=== PATIENT | female | born 1955 | race Caucasian/White ===

== ENCOUNTER → 2016-12-19 | Outpatient (CLI) | payer MEDICARE, OTHER ==
--- NOTE | 2016-12-20 13:25 | MM ---
Reason for exam: screening (asymptomatic). Last mammogram was performed 7 years and 6 months ago. History: Patient is postmenopausal, has history of ovarian cancer at age 44, and is nulliparous. Family history of premenopausal breast cancer in sister, breast cancer in aunt, and breast cancer in cousin. Physical Findings: A clinical breast exam by your physician is recommended on an annual basis and results should be correlated with mammographic findings. MG Screening Mammo w CAD Bilateral CC and MLO view(s) were taken. Prior study comparison: July 01, 2009, bilateral diagnostic digital mammog. June 19, 2008, bilateral digital screening mammogram. There are scattered fibroglandular densities. No significant changes when compared with prior studies. ASSESSMENT: Benign, BI-RAD 2 RECOMMENDATION: Routine screening mammogram of both breasts in 1 year.
== END | disposition home or self-care (01) ==
LOC: RADMAMWWP 09:13
PROVIDERS: ATTEND Family Medicine
DX: Z12.31 Encounter for screening mammogram for malignant neoplasm of breast (principal)

== ENCOUNTER → 2017-03-05 | Outpatient (CLI) | payer OTHER ==
[2017-03-05 14:44] VITALS: BP 136/63; PULSE 82; TEMP 98.3; BMI 32.8
--- NOTE | 2017-03-05 15:19 | P.HPBAR ---
Bariatric H&P - History & Physicial H&P Date: 03/05/17 History & Physicial: Visit/CC: follow up visit Patient initial contact: Initial weight: 80.739 kg Initial weight in pounds: 178.00 Height: 5 ft Initial BMI: 34.7 Last weight: Current weight: 76.294 kg Current weight in pounds: 168.20 Current BMI: 32.8 [place] body weight (based on NIH guidelines): 45.359 kg Excess body weight loss: 12.5% The patient is a 61 year-old F who presents for Bariatric Assessment. The patient presents today for sleeve follow-up. She is gaining approximate 15 pounds over the last 6 or 7 months. She states her blood sugars a been under control. She states her waking blood sugar is in the 3-400 range her hemoglobin A1c was 14. She states Dr. Joaquin and the [facility] in managing her blood sugars. Past Medical History Past Medical History: Diabetes Mellitus, Hyperlipidemia Additional Past Medical History / Comment(s): diverticultitis, patient currently has hammer toes. History of Any Multi-Drug Resistant Organisms: None Reported Past Surgical History: Bariatric Surgery, Cholecystectomy, Orthopedic Surgery Additional Past Surgical History / Comment(s): sleeve 07/08, colon resection for diverticulitis, Right knee rplaced 2007, currently suffers from hammer toes Past Anesthesia/Blood Transfusion Reactions: No Reported Reaction Past Psychological History: Depression, PTSD Additional Psychological History / Comment(s): patient takes zoloft daily Smoking Status: Never smoker Past Alcohol Use History: None Reported Past Drug Use History: None Reported - Past Family History Father Family Medical History: Cancer, COPD, Coronary Artery Disease (CAD) Additional Family Medical History / Comment(s): emphysema, prostate cancer and lung cancer. Mother Family Medical History: Coronary Artery Disease (CAD), Dementia, Diabetes Mellitus, Thyroid Disorder Additional Family Medical History / Comment(s): diverticulitis, Surgical - Exam Vital Signs Temp Pulse BP 98.3 F 82 136/63 03/05/17 14:38 03/05/17 14:38 03/05/17 14:38 - General well developed, well nourished - Eyes PERRL - ENT normal pinna - Neck no masses - Respiratory normal expansion - Cardiovascular Rhythm: regular - Abdomen Abdomen: soft, non tender Bariatric Assessment & Plan Plan: IDDM poorly controlled. Patient will see the diabetic dietitian and follow myself in 2 weeks. We have scheduled for blood work testing. Bariatric Checklist Checklist: Plan: Checklist: EGD: 1. Hiatal hernia: 2. H. Pylori: HgbA1c: Vitamin D: Smoking: Never smoker Primary care physician referral: alexandrea joaquin Psychiatry clearance: Cardiology clearance: Sleep study: Diet journal: VTE risk score: VTE risk level: Rehab needs at discharge:
[2017-03-05 16:09] LABS: CH 29.5; CHCM 32.1; HCT 40.9 % (34.0-46.0); HDW 2.44; HGB 13.2 gm/dL (11.4-16.0); MCH 29.7 pg (25.0-35.0); MCHC 32.2 g/dL (31.0-37.0); MCV 92.4 fL (80.0-100.0); Mean Platelet Volume 7.6; RBC 4.42 m/uL (3.80-5.40); RDW 13.3 % (11.5-15.5); WBC 9.4 k/uL (3.8-10.6)
[2017-03-05 16:17] LABS: ALT 30 U/L (9-52); AST 25 U/L (14-36); Alkaline Phosphatase 202 U/L (38-126); Anion Gap 9 mmol/L; Blood Urea Nitrogen 13 mg/dL (7-17); Calcium 9.4 mg/dL (8.4-10.2); Carbon Dioxide 22 mmol/L (22-30); Chloride 105 mmol/L (98-107); Glucose 359 mg/dL (74-99); Non-African American GFR(MDRD) >60 (>60 ml/min/1.73 sqM); Potassium 4.9 mmol/L (3.5-5.1); Sodium 136 mmol/L (137-145); Total Bilirubin 0.9 mg/dL (0.2-1.3); Total Protein 6.7 g/dL (6.3-8.2)
[2017-03-05 16:24] LABS: Prealbumin 20 mg/dL (18-36)
[2017-03-05 17:23] LABS: Vitamin B12 269 pg/mL (239-931)
[2017-03-05 22:09] LABS: Hemoglobin A1C 10.4 % (4.2-6.1)
== END | disposition home or self-care (01) ==
LOC: BARWHC3 13:55
PROVIDERS: ATTEND Surgery
DX: Z48.815 Encounter for surgical aftercare following surgery on the digestive system (principal); E10.9 Type 1 diabetes mellitus without complications; Z98.84 Bariatric surgery status
CPT/HCPCS: 80053; 82306; 82607; 82746; 83036; 84134; 84425; 84443; 85027; 99211

== ENCOUNTER → 2017-04-02 | Outpatient (CLI) | payer MEDICARE, OTHER ==
[2017-04-02 13:43] VITALS: BP 131/60; PULSE 54; RESP 16; TEMP 97.6; BMI 24.0
--- NOTE | 2017-04-02 16:25 | P.HPBAR ---
Bariatric H&P - History & Physicial H&P Date: 04/02/17 History & Physicial: Visit/CC: sleeve follow up Patient initial contact: Initial weight: 80.739 kg Initial weight in pounds: 178.00 Height: 5 ft 9.5 in Initial BMI: 25.9 Last weight: 168 Current weight: 74.871 kg Current weight in pounds: 165.00 Current BMI: 24.0 [place] body weight (based on NIH guidelines): 66.905 kg Excess body weight loss: 42.6% The patient is a 61 year-old F who presents for Bariatric Assessment. Patient presents today for sleeve follow-up. She has had some weight loss. She states her GERD symptoms are minimal. Her arthritis is improved. She is tolerating food. Past Medical History Past Medical History: Diabetes Mellitus, Hyperlipidemia Additional Past Medical History / Comment(s): diverticultitis, patient currently has hammer toes. History of Any Multi-Drug Resistant Organisms: None Reported Past Surgical History: Bariatric Surgery, Cholecystectomy, Orthopedic Surgery Additional Past Surgical History / Comment(s): sleeve 07/08, colon resection for diverticulitis, Right knee rplaced 2007, currently suffers from hammer toes Past Anesthesia/Blood Transfusion Reactions: No Reported Reaction Past Psychological History: Depression, PTSD Additional Psychological History / Comment(s): patient takes zoloft daily Smoking Status: Never smoker - Past Family History Father Family Medical History: Cancer, COPD, Coronary Artery Disease (CAD) Additional Family Medical History / Comment(s): emphysema, prostate cancer and lung cancer. Mother Family Medical History: Coronary Artery Disease (CAD), Dementia, Diabetes Mellitus, Thyroid Disorder Additional Family Medical History / Comment(s): diverticulitis, Surgical - Exam Vital Signs Temp Pulse Resp BP 97.6 F 54 L 16 131/60 04/02/17 13:34 04/02/17 13:34 04/02/17 13:34 04/02/17 13:34 - General well developed, no distress - Eyes PERRL - Respiratory normal expansion - Cardiovascular Rhythm: regular - Abdomen Abdomen: soft, non tender Bariatric Assessment & Plan Plan: Status post sleeve yesterday. Patient's GERD is improving. Her arthritis improving. She is doing fairly well from her sleeve gastrectomy. She'll follow -up in one month. Bariatric Checklist Checklist: Plan: Checklist: EGD: 1. Hiatal hernia: 2. H. Pylori: HgbA1c: Vitamin D: Smoking: Never smoker Primary care physician referral: alexandrea joaquin Psychiatry clearance: Cardiology clearance: Sleep study: Diet journal: VTE risk score: VTE risk level: Rehab needs at discharge:
== END | disposition home or self-care (01) ==
LOC: BARWHC3 13:17
PROVIDERS: ATTEND Surgery
DX: Z48.815 Encounter for surgical aftercare following surgery on the digestive system (principal); Z98.84 Bariatric surgery status; K21.9 Gastro-esophageal reflux disease without esophagitis; Z68.24 Body mass index [BMI] 24.0-24.9, adult
CPT/HCPCS: 99211

== ENCOUNTER 2017-04-06 10:41 | Day surgery (SDC) | payer MEDICARE ==
[2017-04-06] MEDS ORDERED: LACTATED RINGERS 1,000 ML IV SCH (10:57)
[2017-04-06 11:12] VITALS: RESP 16; TEMP 98.2
[2017-04-06 11:14] LABS: Glucose,Whole Blood 286 mg/dL (75-99)
[2017-04-06] MEDS ORDERED: INSULIN LISPRO (humaLOG) 300 UNIT/3 ML VIAL SQ ONE (11:19)
[2017-04-06] MEDS ORDERED: PROPOFOL 10 MG/ML 20 ML VIAL IV ONE (11:21)
[2017-04-06] MEDS ORDERED: LIDOCAINE 1% INJ 10MG/ML (20 ML MDV) ONE (11:21)
[2017-04-06] MEDS ORDERED: GLYCOPYRROLATE 0.2 MG/ML 2 ML VIAL ONE (11:21)
--- NOTE | 2017-04-06 11:37 | P.GSHP ---
History of Present Illness H&P Date: 04/06/17 Chief Complaint: Diarrhea, diverticulitis This is a 61-year-old female who presents today for colonoscopy. She has history of diverticulitis. Patient has a chronic complaints of diarrhea for last 3 months. Past Medical History Past Medical History: Diabetes Mellitus, Hyperlipidemia Additional Past Medical History / Comment(s): diverticultitis, patient currently has hammer toes. History of Any Multi-Drug Resistant Organisms: None Reported Past Surgical History: Bariatric Surgery, Cholecystectomy, Orthopedic Surgery Additional Past Surgical History / Comment(s): sleeve 07/08, colon resection for diverticulitis, Right knee rplaced 2007, currently suffers from hammer toes Past Anesthesia/Blood Transfusion Reactions: No Reported Reaction Past Psychological History: Depression, PTSD Additional Psychological History / Comment(s): patient takes zoloft daily Smoking Status: Never smoker - Past Family History Father Family Medical History: Cancer, COPD, Coronary Artery Disease (CAD) Additional Family Medical History / Comment(s): emphysema, prostate cancer and lung cancer. Mother Family Medical History: Coronary Artery Disease (CAD), Dementia, Diabetes Mellitus, Thyroid Disorder Additional Family Medical History / Comment(s): diverticulitis, Medications and Allergies Home Medications Medication Instructions Recorded Confirmed Type Omeprazole 20 mg PO DAILY 12/22/15 04/06/17 History Sertraline [Zoloft] 50 mg PO DAILY 12/22/15 04/06/17 History Insulin Glargine [Lantus] 25 unit SQ HS 05/01/16 04/06/17 History Insulin Regular, Human [NovoLIN R] 10 unit SQ AC-TID 05/01/16 04/06/17 History Simvastatin [Zocor] 5 mg PO HS 05/01/16 04/06/17 History metFORMIN HCL [Glucophage] 250 mg PO DAILY 05/01/16 04/06/17 History Atenolol [Tenormin] 50 mg PO DAILY 04/06/17 04/06/17 History Nitroglycerin 0.4 mg SL 04/06/17 History Allergies Allergy/AdvReac Type Severity Reaction Status Date / Time codeine Allergy Unknown Verified 04/06/17 10:54 erythromycin base Allergy Unknown Verified 04/06/17 10:54 lorazepam [From Ativan] Allergy Unknown Verified 04/06/17 10:54 Sulfa (Sulfonamide Allergy Unknown Verified 04/06/17 10:54 Antibiotics) Surgical - Exam Vital Signs Temp Pulse Resp BP Pulse Ox 98.2 F 77 16 134/72 98 04/06/17 11:00 04/06/17 11:00 04/06/17 11:00 04/06/17 11:00 04/06/17 11:00 - General well developed, no distress - Eyes PERRL - ENT normal pinna - Neck no masses - Respiratory normal expansion - Cardiovascular Rhythm: regular - Abdomen Mild left lower quadrant tenderness Abdomen: soft Results - Labs Abnormal Lab Results - Last 24 Hours (Table) 04/06/17 Range/Units 11:11 POC Glucose (mg/dL) 286 H (75-99) mg/dL Assessment and Plan Plan: Diarrhea, diverticulitis. We'll perform colonoscopy.
--- NOTE | 2017-04-06 11:48 | P.OP ---
Date of Procedure: 04/06/17 Preoperative Diagnosis: Diarrhea Diverticulitis Postoperative Diagnosis: Stents of diverticulosis of colon. Random biopsies of left colon and rectum performed Procedure(s) Performed: Colonoscopy Implants: Anesthesia: MAC Surgeon: Douglas Monahan Pathology: other (Random colon biopsy) Condition: stable Disposition: PACU Indications for Procedure: Operative Findings: Description of Procedure: The patient's placed on the endoscopy table lateral position. She received IV sedation. Digital rectal exam was performed which revealed no abnormalities. The flexible colonoscope was then placed patient anus passed throughout the entire colon. The patient a previous colorectal anastomosis. The ileocecal valve was visualized. The cecum was examined this appeared normal. In the right colon there were some diverticular changes. There is no evidence of any diverticulitis. Transverse colon was examined and there were diverticular changes and transverse colon the scope was then brought back into the left colon and there is extensive diverticular changes a biopsy of the proximal left colon and distal left colon were performed. A biopsies taken right before the anastomosis. The anastomosis visualized this appeared to be normal. There is no evidence of any inflammatory changes. The scope was brought back the rectum and this area appeared normal however due the patient's symptoms of diarrhea a biopsies performed. Scope was withdrawn for patient.
[2017-04-06 12:24] VITALS: BP 140/62; PULSE 75
== END 2017-04-06 12:37 | disposition home or self-care (01) ==
LOC: ORWHC2ENDO 10:41
PROVIDERS: ATTEND Surgery
DX: K57.30 Diverticulosis of large intestine without perforation or abscess without bleeding (principal); R19.7 Diarrhea, unspecified; Z87.19 Personal history of other diseases of the digestive system; Z90.49 Acquired absence of other specified parts of digestive tract; Z98.84 Bariatric surgery status; K21.9 Gastro-esophageal reflux disease without esophagitis; E11.9 Type 2 diabetes mellitus without complications; E78.5 Hyperlipidemia, unspecified; F32.9 Major depressive disorder, single episode, unspecified; F43.10 Post-traumatic stress disorder, unspecified; Z79.84 Long term (current) use of oral hypoglycemic drugs; Z79.4 Long term (current) use of insulin; Z79.899 Other long term (current) drug therapy; Z88.1 Allergy status to other antibiotic agents; Z88.5 Allergy status to narcotic agent; Z88.2 Allergy status to sulfonamides; Z88.8 Allergy status to other drugs, medicaments and biological substances
CPT/HCPCS: 88305; 45380; J2001; J2704

== ENCOUNTER 2017-04-20 17:09 | Inpatient (IN) | payer MEDICARE ==
[2017-04-20 18:41] LABS: Basophils # (A) 0.1 k/uL (0-0.2); Basophils % (A) 1 %; CH 29.9; CHCM 33.4; Eosinophils # (A) 0.4 k/uL (0-0.7); Eosinophils % (A) 4 %; HCT 41.5 % (34.0-46.0); HDW 2.49; HGB 14.1 gm/dL (11.4-16.0); Luc # (Auto) 0.24; Luc % (Auto) 2; Lymphocytes # (A) 3.2 k/uL (1.0-4.8); Lymphocytes % (A) 28 %; MCH 30.4 pg (25.0-35.0); MCHC 33.9 g/dL (31.0-37.0); MCV 89.8 fL (80.0-100.0); Mean Platelet Volume 8.9; Monocytes # (A) 0.7 k/uL (0-1.0); Monocytes % (A) 6 %; Neutrophils # (A) 6.8 k/uL (1.3-7.7); Neutrophils % (A) 59 %; RBC 4.63 m/uL (3.80-5.40); RDW 13.4 % (11.5-15.5); WBC 11.5 k/uL (3.8-10.6); WBC (Perox) 11.47
[2017-04-20 18:47] LABS: ALT 34 U/L (9-52); AST 31 U/L (14-36); Alkaline Phosphatase 180 U/L (38-126); Anion Gap 8 mmol/L; Blood Urea Nitrogen 15 mg/dL (7-17); Calcium 9.4 mg/dL (8.4-10.2); Carbon Dioxide 24 mmol/L (22-30); Chloride 108 mmol/L (98-107); Glucose 142 mg/dL (74-99); Magnesium 1.9 mg/dL (1.6-2.3); Non-African American GFR(MDRD) >60 (>60 ml/min/1.73 sqM); Sodium 140 mmol/L (137-145); Total Bilirubin 0.5 mg/dL (0.2-1.3); Total Protein 6.2 g/dL (6.3-8.2)
[2017-04-20 18:58] LABS: VBG PH 7.36 (7.31-7.41)
[2017-04-20 18:59] LABS: Creatine Kinase 44 U/L (30-135)
[2017-04-20 19:06] LABS: Ammonia <9 umol/L (<30)
[2017-04-20 19:07] LABS: Partial Thromboplastin Time 24.1 sec (22.0-30.0)
[2017-04-20 19:10] LABS: Appearance,Urine Clear (Clear); Bilirubin,Urine Negative (Negative); Glucose,Urine (UA) 1+ (Negative); Ketones,Urine Negative (Negative); Leukocyte Esterase,Urine Negative (Negative); Nitrite,Urine Negative (Negative); PH, Urine 5.5 (5.0-8.0); Protein,Urine Negative (Negative); Specific Gravity,Urine 1.002 (1.001-1.035); UA Billing (MACRO vs. MICRO) CHEM; Urobilinogen,Urine <2.0 mg/dL (<2.0)
[2017-04-20 19:13] LABS: Creatine Kinase MB <0.2 ng/mL (0.0-2.4); Troponin I <0.012 ng/mL (0.000-0.034)
--- NOTE | 2017-04-20 19:51 | CT ---
EXAMINATION TYPE: CT brain wo con DATE OF EXAM: 04/20/2017 COMPARISON: 11/27/2011 HISTORY: Unresponsive. CT DLP: 981.7 mGycm Automated exposure control for dose reduction was used. FINDINGS: Ventricles and sulci appear normal. There is no mass effect nor midline shift. There is no sign of in tracranial hemorrhage. The calvarium is intact. IMPRESSION: NORMAL UNENHANCED HEAD CT SCAN. NO CHANGE.
--- NOTE | 2017-04-20 20:05 | XR ---
EXAMINATION TYPE: XR chest 2V DATE OF EXAM: 04/20/2017 COMPARISON: 05/05/2013 HISTORY: Fatigue and chest pain TECHNIQUE: Frontal and lateral views of the chest are obtained. FINDINGS: Heart appears enlarged. There is no gross heart failure. There are chest leads. Costophren ic angles are clear. Bony thorax appears intact. IMPRESSION: Mild cardiomegaly. No acute lung disease. No change.
[2017-04-20] MEDS ORDERED: ASPIRIN 325 MG TAB PO STA (20:37)
[2017-04-20] MEDS ORDERED: NALOXONE 0.4 MG/ML 1 ML VIAL IV PRN (20:40)
[2017-04-20] MEDS ORDERED: ONDANSETRON 4 MG/2 ML VIAL IVP PRN (20:40)
--- NOTE | 2017-04-20 21:01 | ED ---
General Adult HPI - General Chief complaint: Recheck/Abnormal Lab/Rx Stated complaint: Fatigue, Poss Blood sugar issue Time Seen by Provider: 04/20/17 17:17 Source: patient, RN notes reviewed Mode of arrival: ambulatory Limitations: no limitations - History of Present Illness Initial comments: 62-year-old female with past medical history of hypertension, diabetes, and angina presents with fatigue. Patient is coming by her family member who states she has been sleepy all day. Patient does have history of chronic abdominal pain which she states is normal for her, no change today. Patient also states complaining of some substernal chest pain, this is typical of her angina. She is on nitroglycerin and isosorbide for this chest pain. Pain is currently resolved. She denies any radiating symptoms to the pain. No nausea vomiting or diarrhea. No fever. No cough. No palpitations. - Related Data Home Medications Medication Instructions Recorded Confirmed Insulin Glargine [Lantus] 30 unit SQ HS 05/01/16 04/20/17 Atenolol [Tenormin] 50 mg PO HS 04/06/17 04/20/17 Nitroglycerin 0.4 mg SUBLINGUAL Q5M PRN 04/06/17 04/20/17 Insulin Aspart [NovoLOG] 15 unit SQ TID-W/MEALS 04/20/17 04/20/17 Isosorbide Mononitrate ER [Imdur] 30 mg PO QAM 04/20/17 04/20/17 Sertraline HCl [Zoloft] 100 mg PO HS 04/20/17 04/20/17 Simvastatin [Zocor] 40 mg PO HS 04/20/17 04/20/17 metFORMIN HCL 1,000 mg PO HS 04/20/17 04/20/17 Allergies Allergy/AdvReac Type Severity Reaction Status Date / Time ampicillin Allergy Rash/Hives Verified 04/20/17 18:43 codeine Allergy Rash/Hives Verified 04/20/17 18:43 erythromycin base Allergy Rash/Hives Verified 04/20/17 18:43 lorazepam [From Ativan] Allergy Unknown Verified 04/20/17 17:15 Sulfa (Sulfonamide Allergy Rash/Hives Verified 04/20/17 18:43 Antibiotics) Review of Systems ROS Statement: Those systems with pertinent positive or pertinent negative responses have been documented in the HPI. ROS Other: All systems not noted in ROS Statement are negative. Past Medical History Past Medical History: Diabetes Mellitus, Hyperlipidemia Additional Past Medical History / Comment(s): diverticultitis, patient currently has hammer toes. History of Any Multi-Drug Resistant Organisms: None Reported Past Surgical History: Bariatric Surgery, Cholecystectomy, Orthopedic Surgery Additional Past Surgical History / Comment(s): sleeve 07/08, colon resection for diverticulitis, Right knee rplaced 2007, currently suffers from hammer toes Past Anesthesia/Blood Transfusion Reactions: No Reported Reaction Past Psychological History: Depression, PTSD Smoking Status: Never smoker - Past Family History Father Family Medical History: Cancer, COPD, Coronary Artery Disease (CAD) Additional Family Medical History / Comment(s): emphysema, prostate cancer and lung cancer. Mother Family Medical History: Coronary Artery Disease (CAD), Dementia, Diabetes Mellitus, Thyroid Disorder Additional Family Medical History / Comment(s): diverticulitis, General Exam Limitations: no limitations General appearance: alert (Patient is alert when aroused from sleep), in no apparent distress Head exam: Present: atraumatic, normocephalic Eye exam: Present: normal appearance, PERRL. Absent: scleral icterus ENT exam: Present: normal exam, mucous membranes moist Neck exam: Present: normal inspection, full ROM. Absent: meningismus Respiratory exam: Present: normal lung sounds bilaterally. Absent: respiratory distress Cardiovascular Exam: Present: normal rhythm, bradycardia GI/Abdominal exam: Present: soft. Absent: distended, tenderness Extremities exam: Present: normal inspection, normal capillary refill. Absent: pedal edema Back exam: Present: normal inspection Neurological exam: Present: alert, oriented X3, CN II-XII intact. Absent: motor sensory deficit Psychiatric exam: Present: normal affect, normal mood Skin exam: Present: warm, dry. 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 She is alert when aroused. EKG Findings - EKG Comments: EKG Findings:: EKG shows sinus bradycardia, normal AR interval 174, ventricular rate of 38, QRS duration 82, QTC is 370, there is no ST segment elevation, no T- wave abnormality, no signs of heart block. Medical Decision Making - Medical Decision Making 62-year-old female presents with chief complaint of fatigue and sleepiness. Patient is found to be bradycardic with a rate into the high 30s, blood pressure remained stable in the emergency department. Patient does admit to some intermittent chest pain, this has been persistent for months, she was diagnosed with angina and patient does not relate any change in her symptoms. Denies headache. Denies shortness of breath, denies fever, denies nausea vomiting and diarrhea. Patient does take atenolol, and was started on this approximately 2 months ago. EKG shows sinus bradycardia, no ST segment elevation or depression, no signs of heart block. Patient's blood pressure is stable despite bradycardia. Laboratory studies including CBC, CMP, cardiac enzymes, urinalysis, TSH, venous blood gas, and ammonia is unremarkable. Chest x-ray shows no acute findings. Head CT shows no acute finding. Patient remains bradycardic, blood pressure again is stable. Patient will be admitted for telemetry and cardiology evaluation. Patient's beta ana may need to be reduced, and will be held tonight. Diagnosis: Symptomatic bradycardia. - Lab Data Result diagrams: 04/20/17 18:21 04/20/17 18:21 Lab Results 04/20/17 04/20/17 04/20/17 Range/Units 18:21 18:21 18:21 WBC 11.5 H (3.8-10.6) k/uL RBC 4.63 (3.80-5.40) m/uL Hgb 14.1 (11.4-16.0) gm/dL Hct 41.5 (34.0-46.0) % MCV 89.8 (80.0-100.0) fL MCH 30.4 (25.0-35.0) pg MCHC 33.9 (31.0-37.0) g/dL RDW 13.4 (11.5-15.5) % Plt Count 213 (150-450) k/uL Neutrophils % 59 % Lymphocytes % 28 % Monocytes % 6 % Eosinophils % 4 % Basophils % 1 % Neutrophils # 6.8 (1.3-7.7) k/uL Lymphocytes # 3.2 (1.0-4.8) k/uL Monocytes # 0.7 (0-1.0) k/uL Eosinophils # 0.4 (0-0.7) k/uL Basophils # 0.1 (0-0.2) k/uL PT (9.0-12.0) sec INR (<1.2) APTT (22.0-30.0) sec VBG pH (7.31-7.41) VBG pCO2 (37-51) mmHg VBG HCO3 (24-28) mmol/L Sodium 140 (137-145) mmol/L Potassium 4.0 (3.5-5.1) mmol/L Chloride 108 H (98-107) mmol/L Carbon Dioxide 24 (22-30) mmol/L Anion Gap 8 mmol/L BUN 15 (7-17) mg/dL Creatinine 0.57 (0.52-1.04) mg/dL Est GFR (MDRD) Af Amer >60 (>60 ml/min/1.73 sqM) Est GFR (MDRD) Non-Af >60 (>60 ml/min/1.73 sqM) Glucose 142 H (74-99) mg/dL Plasma Lactic Acid [place] (0.7-2.0) mmol/L Calcium 9.4 (8.4-10.2) mg/dL Magnesium 1.9 (1.6-2.3) mg/dL Total Bilirubin 0.5 (0.2-1.3) mg/dL AST 31 (14-36) U/L ALT 34 (9-52) U/L Alkaline Phosphatase 180 H (38-126) U/L Ammonia (<30) umol/L Total Creatine Kinase 44 (30-135) U/L CK-MB (CK-2) <0.2 (0.0-2.4) ng/mL CK-MB (CK-2) Rel Index Troponin I <0.012 (0.000-0.034) ng/mL NT-Pro-B Natriuret Pep pg/mL Total Protein 6.2 L (6.3-8.2) g/dL Albumin 3.4 L (3.5-5.0) g/dL TSH 2.120 (0.465-4.680) mIU/L Urine Color Urine Appearance (Clear) Urine pH (5.0-8.0) Ur Specific [place] (1.001-1.035) Urine Protein (Negative) Urine Glucose (UA) (Negative) Urine Ketones (Negative) Urine Blood (Negative) Urine Nitrite (Negative) Urine Bilirubin (Negative) Urine Urobilinogen (<2.0) mg/dL Ur Leukocyte Esterase (Negative) 04/20/17 04/20/17 04/20/17 Range/Units 18:39 18:39 18:39 WBC (3.8-10.6) k/uL RBC (3.80-5.40) m/uL Hgb (11.4-16.0) gm/dL Hct (34.0-46.0) % MCV (80.0-100.0) fL MCH (25.0-35.0) pg MCHC (31.0-37.0) g/dL RDW (11.5-15.5) % Plt Count (150-450) k/uL Neutrophils % % Lymphocytes % % Monocytes % % Eosinophils % % Basophils % % Neutrophils # (1.3-7.7) k/uL Lymphocytes # (1.0-4.8) k/uL Monocytes # (0-1.0) k/uL Eosinophils # (0-0.7) k/uL Basophils # (0-0.2) k/uL PT 10.0 (9.0-12.0) sec INR 1.0 (<1.2) APTT 24.1 (22.0-30.0) sec VBG pH (7.31-7.41) VBG pCO2 (37-51) mmHg VBG HCO3 (24-28) mmol/L Sodium (137-145) mmol/L Potassium (3.5-5.1) mmol/L Chloride (98-107) mmol/L Carbon Dioxide (22-30) mmol/L Anion Gap mmol/L BUN (7-17) mg/dL Creatinine (0.52-1.04) mg/dL Est GFR (MDRD) Af Amer (>60 ml/min/1.73 sqM) Est GFR (MDRD) Non-Af (>60 ml/min/1.73 sqM) Glucose (74-99) mg/dL Plasma Lactic Acid [place] 1.1 (0.7-2.0) mmol/L Calcium (8.4-10.2) mg/dL Magnesium (1.6-2.3) mg/dL Total Bilirubin (0.2-1.3) mg/dL AST (14-36) U/L ALT (9-52) U/L Alkaline Phosphatase (38-126) U/L Ammonia <9 (<30) umol/L Total Creatine Kinase (30-135) U/L CK-MB (CK-2) (0.0-2.4) ng/mL CK-MB (CK-2) Rel Index Troponin I (0.000-0.034) ng/mL NT-Pro-B Natriuret Pep 245 pg/mL Total Protein (6.3-8.2) g/dL Albumin (3.5-5.0) g/dL TSH (0.465-4.680) mIU/L Urine Color Urine Appearance (Clear) Urine pH (5.0-8.0) Ur Specific [place] (1.001-1.035) Urine Protein (Negative) Urine Glucose (UA) (Negative) Urine Ketones (Negative) Urine Blood (Negative) Urine Nitrite (Negative) Urine Bilirubin (Negative) Urine Urobilinogen (<2.0) mg/dL Ur Leukocyte Esterase (Negative) 04/20/17 04/20/17 Range/Units 18:39 19:00 WBC (3.8-10.6) k/uL RBC (3.80-5.40) m/uL Hgb (11.4-16.0) gm/dL Hct (34.0-46.0) % MCV (80.0-100.0) fL MCH (25.0-35.0) pg MCHC (31.0-37.0) g/dL RDW (11.5-15.5) % Plt Count (150-450) k/uL Neutrophils % % Lymphocytes % % Monocytes % % Eosinophils % % Basophils % % Neutrophils # (1.3-7.7) k/uL Lymphocytes # (1.0-4.8) k/uL Monocytes # (0-1.0) k/uL Eosinophils # (0-0.7) k/uL Basophils # (0-0.2) k/uL PT (9.0-12.0) sec INR (<1.2) APTT (22.0-30.0) sec VBG pH 7.36 (7.31-7.41) VBG pCO2 50 (37-51) mmHg VBG HCO3 28 (24-28) mmol/L Sodium (137-145) mmol/L Potassium (3.5-5.1) mmol/L Chloride (98-107) mmol/L Carbon Dioxide (22-30) mmol/L Anion Gap mmol/L BUN (7-17) mg/dL Creatinine (0.52-1.04) mg/dL Est GFR (MDRD) Af Amer (>60 ml/min/1.73 sqM) Est GFR (MDRD) Non-Af (>60 ml/min/1.73 sqM) Glucose (74-99) mg/dL Plasma Lactic Acid [place] (0.7-2.0) mmol/L Calcium (8.4-10.2) mg/dL Magnesium (1.6-2.3) mg/dL Total Bilirubin (0.2-1.3) mg/dL AST (14-36) U/L ALT (9-52) U/L Alkaline Phosphatase (38-126) U/L Ammonia (<30) umol/L Total Creatine Kinase (30-135) U/L CK-MB (CK-2) (0.0-2.4) ng/mL CK-MB (CK-2) Rel Index Troponin I (0.000-0.034) ng/mL NT-Pro-B Natriuret Pep pg/mL Total Protein (6.3-8.2) g/dL Albumin (3.5-5.0) g/dL TSH (0.465-4.680) mIU/L Urine Color Light Yellow Urine Appearance Clear (Clear) Urine pH 5.5 (5.0-8.0) Ur Specific [place] 1.002 (1.001-1.035) Urine Protein Negative (Negative) Urine Glucose (UA) 1+ H (Negative) Urine Ketones Negative (Negative) Urine Blood Negative (Negative) Urine Nitrite Negative (Negative) Urine Bilirubin Negative (Negative) Urine Urobilinogen <2.0 (<2.0) mg/dL Ur Leukocyte Esterase Negative (Negative) Critical Care Time Critical Care Time: Yes Total Critical Care Time: 35 Disposition Clinical Impression: Symptomatic sinus bradycardia Disposition: ADMITTED IP TO THIS [facility] Condition: Serious Referrals: Kevyn Luciano DO [Primary Care Provider] - 1-2 days Decision to Admit Reason: Admit from EC Decision Date: 04/20/17 Decision Time: 20:00
[2017-04-20 23:14] LABS: Glucose,Whole Blood 105 mg/dL (75-99)
[2017-04-21 01:49] LABS: Creatine Kinase 32 U/L (30-135)
[2017-04-21 02:03] LABS: Creatine Kinase MB <0.2 ng/mL (0.0-2.4); Troponin I <0.012 ng/mL (0.000-0.034)
[2017-04-21 04:42] VITALS: BMI 31.6
[2017-04-21 06:17] LABS: Glucose,Whole Blood 152 mg/dL (75-99)
[2017-04-21 07:10] LABS: Creatine Kinase 30 U/L (30-135)
[2017-04-21] MEDS: INSULIN LISPRO (humaLOG) 300 UNIT/3 ML VIAL SQ SCH ×3 (07:15→17:30)
[2017-04-21 07:23] LABS: Creatine Kinase MB <0.2 ng/mL (0.0-2.4); Troponin I <0.012 ng/mL (0.000-0.034)
--- NOTE | 2017-04-21 09:54 | ECHOF ---
Referral Reason:symptomatic bradycardia MEASUREMENTS -------- HEIGHT: 152.4 cm WEIGHT: 75.3 kg BP: 122/71 IVSd: 1.1 cm (0.6 - 1.1) LVIDd: 4.4 cm (3.9 - 5.3) LVPWd: 1.2 cm (0.6 - 1.1) LVIDs: 3.4 cm RVIDd: 3.2 cm (< 3.3) Ao Diam: 3.0 cm (2.0 - 3.7) LA Diam: 3.7 cm (2.7 - 3.8) AV Cusp: 1.9 cm (1.5 - 2.6) EPSS: 1.0 cm MV E Kj: 1.21 m/s MV DecT: 277 ms MV A Kj: 1.05 m/s MV E/A Ratio: 1.16 AV maxP.14 mmHg AV meanP.65 mmHg RAP: 5.00 mmHg RVSP: 24.78 mmHg MV EF SLOPE: 53.73 mm/s (70 - 150) MV EXCURSION: 11.80 mm (> 18.000) FINDINGS -------- Resting bradycardia (HR<60bpm). This was a technically good study. There is borderline concentric left ventricular hypertrophy. Overall left ventricular systolic function is normal with, an EF between 55 - 60 %. The right ventricle is normal in size and function. The left atrium is normal in size. The right atrium is normal in size. Aortic valve is trileaflet and is mildly thickened. There is mild aortic valve sclerosis. Peak/mean gradient across the Aortic Valve is 15.14mmHg / 6.65mmHg. The mitral valve leaflets are mildly thickened. There is trace mitral regurgitation. Trace tricuspid regurgitation present. The right ventricular systolic pressure, as measured by Doppler, is 24.78mmHg. Pulmonic valve appears structurally normal. The aortic root, ascending aorta and aortic arch are normal. Normal inferior vena cava with normal inspiratory collapse consistent with estimated right atrial pressure of 5 mmHg. The pericardium is normal. CONCLUSIONS -------- 1. Resting bradycardia (HR<60bpm). 2. Peak/mean gradient across the Aortic Valve is 15.14mmHg / 6.65mmHg. 3. The mitral valve leaflets are mildly thickened. 4. There is trace mitral regurgitation. 5. Trace tricuspid regurgitation present. 6. The right ventricular systolic pressure, as measured by Doppler, is 24.78mmHg. 7. Pulmonic valve appears structurally normal. 8. The aortic root, ascending aorta and aortic arch are normal. 9. Normal inferior vena cava with normal inspiratory collapse consistent with estimated right atrial pressure of 5 mmHg. 10. The pericardium is normal. 11. This was a technically good study. 12. There is borderline concentric left ventricular hypertrophy. 13. Overall left ventricular systolic function is normal with, an EF between 55 - 60 %. 14. The right ventricle is normal in size and function. 15. The left atrium is normal in size. 16. The right atrium is normal in size. 17. Aortic valve is trileaflet and is mildly thickened. 18. There is mild aortic valve sclerosis. CONSTRUCTION PIT WORKER: Cecy Howard RDCS
--- NOTE | 2017-04-21 11:43 | P.CRDCN ---
History of Present Illness Consult date: 04/21/17 Reason for Consult (text): Symptomatic bradycardia Chief complaint: Excessive fatigue and tiredness History of present illness: This is a pleasant 62-year-old female with a history of hypertension and diabetes who was seen in the office by Dr. ARRIAGA) he has a new patient in October with complaints of nonexertional chest discomfort. At that time she was scheduled for a stress test and echocardiogram however these were not done. His initial emergency department with complaints of excessive fatigue and tiredness, inability to wake up. And on admission was negative. Patient was found to be in sinus bradycardia with a heart rate in the 30s. Patient had been started on atenolol and her October office visit with Dr. Watson. Laboratory values showed a normal TSH and troponins less than 0.0123. Patient did have complaints of left-sided chest discomfort that was not related to any type of activity. Since admission, her heart rate has been dropping into the 30s. Atenolol has been discontinued. She's had no further complaints of chest discomfort. Past Medical History Past Medical History: Chest Pain / Angina, Diabetes Mellitus, Hyperlipidemia Additional Past Medical History / Comment(s): diverticultitis, patient currently has hammer toes. History of Any Multi-Drug Resistant Organisms: None Reported Past Surgical History: Bariatric Surgery, Cholecystectomy, Orthopedic Surgery Additional Past Surgical History / Comment(s): sleeve 07/08, colon resection for diverticulitis, Right knee rplaced 2007, currently suffers from hammer toes Past Anesthesia/Blood Transfusion Reactions: No Reported Reaction Past Psychological History: Depression, PTSD Additional Psychological History / Comment(s): patient takes zoloft daily Smoking Status: Never smoker Past Alcohol Use History: None Reported Past Drug Use History: None Reported - Past Family History Father Family Medical History: Cancer, COPD, Coronary Artery Disease (CAD) Additional Family Medical History / Comment(s): emphysema, prostate cancer and lung cancer. Mother Family Medical History: Coronary Artery Disease (CAD), Dementia, Diabetes Mellitus, Thyroid Disorder Additional Family Medical History / Comment(s): diverticulitis, Medications and Allergies Home Medications Medication Instructions Recorded Confirmed Type Insulin Glargine [Lantus] 30 unit SQ HS 05/01/16 04/20/17 History Atenolol [Tenormin] 50 mg PO HS 04/06/17 04/20/17 History Nitroglycerin 0.4 mg SUBLINGUAL Q5M PRN 04/06/17 04/20/17 History Insulin Aspart [NovoLOG] 15 unit SQ TID-W/MEALS 04/20/17 04/20/17 History Isosorbide Mononitrate ER [Imdur] 30 mg PO QAM 04/20/17 04/20/17 History Sertraline HCl [Zoloft] 100 mg PO HS 04/20/17 04/20/17 History Simvastatin [Zocor] 40 mg PO HS 04/20/17 04/20/17 History metFORMIN HCL 1,000 mg PO HS 04/20/17 04/20/17 History Allergies Allergy/AdvReac Type Severity Reaction Status Date / Time ampicillin Allergy Rash/Hives Verified 04/20/17 18:43 codeine Allergy Rash/Hives Verified 04/20/17 18:43 erythromycin base Allergy Rash/Hives Verified 04/20/17 18:43 lorazepam [From Ativan] Allergy Unknown Verified 04/20/17 17:15 Sulfa (Sulfonamide Allergy Rash/Hives Verified 04/20/17 18:43 Antibiotics) Physical Exam Vitals: Vital Signs Temp Pulse Pulse Resp BP BP Pulse Ox 04/21/17 09:00 97.6 F 48 L 18 104/52 97 04/21/17 04:00 97.0 F L 51 L 18 122/71 98 04/21/17 00:00 41 L 04/20/17 22:00 98.0 F 39 L 16 146/68 97 04/20/17 21:19 97.6 F 41 L 18 141/82 98 04/20/17 21:00 97.9 F 51 L 16 128/60 98 04/20/17 20:39 97.8 F 47 L 16 160/65 98 04/20/17 19:00 38 L 14 156/70 97 04/20/17 18:55 42 L 04/20/17 18:50 40 L 14 146/66 96 04/20/17 17:11 99.2 F 41 L 18 142/64 97 Intake and Output 04/20/17 04/21/17 04/21/17 22:59 06:59 14:59 Other: Voiding Method Toilet Toilet # Voids 0 1 Weight 73.4 kg 75.3 kg PHYSICAL EXAMINATION: HEENT: Head is atraumatic, normocephalic. Pupils equal, round. Neck is supple. There is no elevated jugular venous pressure. HEART EXAMINATION: Heart sounds regular, S1 and S2 normal. No murmur or gallop heard. CHEST EXAMINATION: Lungs are clear to auscultation and precussion. No chest wall tenderness is noted on palpation or with deep breathing. ABDOMEN: Soft, obese, nontender. Bowel sounds are heard. No organomegaly noted. EXTREMITIES: 2+ peripheral pulses with no evidence of peripheral edema and no calf tenderness noted. NEUROLOGIC patient is sleeping, easily arousable but somewhat drowsy and oriented x3 with mild confusion related to previous events. . Results 04/20/17 18:21 04/20/17 18:21 Cardiac Enzymes 04/20/17 04/20/17 04/21/17 Range/Units 18:21 18:21 00:47 AST 31 (14-36) U/L CK-MB (CK-2) <0.2 <0.2 (0.0-2.4) ng/mL Troponin I <0.012 <0.012 (0.000-0.034) ng/mL 04/21/17 Range/Units 06:02 AST (14-36) U/L CK-MB (CK-2) <0.2 (0.0-2.4) ng/mL Troponin I <0.012 (0.000-0.034) ng/mL Coagulation 04/20/17 Range/Units 18:39 PT 10.0 (9.0-12.0) sec APTT 24.1 (22.0-30.0) sec CBC 04/20/17 Range/Units 18:21 WBC 11.5 H (3.8-10.6) k/uL RBC 4.63 (3.80-5.40) m/uL Hgb 14.1 (11.4-16.0) gm/dL Hct 41.5 (34.0-46.0) % Plt Count 213 (150-450) k/uL Comprehensive Metabolic Panel 04/20/17 Range/Units 18:21 Sodium 140 (137-145) mmol/L Potassium 4.0 (3.5-5.1) mmol/L Chloride 108 H (98-107) mmol/L Carbon Dioxide 24 (22-30) mmol/L BUN 15 (7-17) mg/dL Creatinine 0.57 (0.52-1.04) mg/dL Glucose 142 H (74-99) mg/dL Calcium 9.4 (8.4-10.2) mg/dL AST 31 (14-36) U/L ALT 34 (9-52) U/L Alkaline Phosphatase 180 H (38-126) U/L Total Protein 6.2 L (6.3-8.2) g/dL Albumin 3.4 L (3.5-5.0) g/dL Current Medications Generic Name Dose Route Start Last Admin Trade Name Freq PRN Reason Stop Dose Admin Atorvastatin Calcium 20 mg 04/21/17 21:00 Lipitor PO HS KERRIE Insulin Glargine 30 unit 04/21/17 21:00 Lantus SQ HS KERRIE Insulin Human Lispro 15 unit 04/21/17 07:30 04/21/17 07:15 Humalog SQ 5 unit TID-W/MEALS KERRIE Administration Isosorbide Mononitrate 30 mg 04/21/17 09:00 Imdur PO QAM KERRIE Naloxone HCl 0.2 mg 04/20/17 20:40 Narcan IV Q2M PRN Opioid Reversal Ondansetron HCl 4 mg 04/20/17 20:40 Zofran IVP Q8HR PRN Nausea And Vomiting Intake and Output 04/20/17 04/21/17 04/21/17 22:59 06:59 14:59 Other: Voiding Method Toilet Toilet # Voids 0 1 Weight 73.4 kg 75.3 kg 04/20/17 18:21 04/20/17 18:21 EKG Interpretations (text) Sinus bradycardia Assessment and Plan Plan: Assessment and plan #1 symptomatic bradycardia #2 hypertension #3 diabetes #4 chest pain, nonexertional, troponins negative 3 From cardiology perspective, we will obtain a 2-D echo with Doppler. Discontinue atenolol. Increase patient's activity and monitor her heart rate. Depending on patient's progress we may either discharge the patient and schedule her for an outpatient stress test or keep her until Sunday into the stress test at that time. Further recommendations to follow depending on patient's clinical status. RIVER DRIVER note has been reviewed, I agree with a documented findings and plan of care. Patient was seen and examined.
[2017-04-21] MEDS: ISOSORBIDE MONONITRATE ER 30 MG TAB.ER.24H PO SCH (11:45)
[2017-04-21 12:08] LABS: Glucose,Whole Blood 192 mg/dL (75-99)
[2017-04-21] MEDS ORDERED: NITROGLYCERIN SL TABS 0.4 MG TAB SUBLINGUAL ONE (15:25)
--- NOTE | 2017-04-21 15:53 | P.HPIM ---
History of Present Illness H&P Date: 04/21/17 62 yr old with history of DM2, HTN comes into the hospital with complaints of gen. weakness. pt was in normal health 2 days ago. States she has been taking atenolol for the 4 months Pt was recommended to have a echocardiogram and outpt stress test, pt has not followed up for those tests. pt was noted to have sinus bradycardia lowest HR in the 30s. Pt has taken her last dose of atenolol lastnight. Denies overusing it or change in the dose recently TSH was wnl. NO recent illnesses are reported Pt dose state to have intermitent chest pain , sharp on the right side EKG doesnot reveal st- t wave changes Review of Systems All systems: negative (noted in HPI) Past Medical History Past Medical History: Chest Pain / Angina, Diabetes Mellitus, Hyperlipidemia Additional Past Medical History / Comment(s): diverticultitis, patient currently has hammer toes. History of Any Multi-Drug Resistant Organisms: None Reported Past Surgical History: Bariatric Surgery, Cholecystectomy, Orthopedic Surgery Additional Past Surgical History / Comment(s): sleeve 07/08, colon resection for diverticulitis, Right knee rplaced 2007, currently suffers from hammer toes Past Anesthesia/Blood Transfusion Reactions: No Reported Reaction Past Psychological History: Depression, PTSD Additional Psychological History / Comment(s): patient takes zoloft daily Smoking Status: Never smoker Past Alcohol Use History: None Reported Past Drug Use History: None Reported - Past Family History Father Family Medical History: Cancer, COPD, Coronary Artery Disease (CAD) Additional Family Medical History / Comment(s): emphysema, prostate cancer and lung cancer. Mother Family Medical History: Coronary Artery Disease (CAD), Dementia, Diabetes Mellitus, Thyroid Disorder Additional Family Medical History / Comment(s): diverticulitis, Medications and Allergies Home Medications Medication Instructions Recorded Confirmed Type Insulin Glargine [Lantus] 30 unit SQ HS 05/01/16 04/20/17 History Atenolol [Tenormin] 50 mg PO HS 04/06/17 04/20/17 History Nitroglycerin 0.4 mg SUBLINGUAL Q5M PRN 04/06/17 04/20/17 History Insulin Aspart [NovoLOG] 15 unit SQ TID-W/MEALS 04/20/17 04/20/17 History Isosorbide Mononitrate ER [Imdur] 30 mg PO QAM 04/20/17 04/20/17 History Sertraline HCl [Zoloft] 100 mg PO HS 04/20/17 04/20/17 History Simvastatin [Zocor] 40 mg PO HS 04/20/17 04/20/17 History metFORMIN HCL 1,000 mg PO HS 04/20/17 04/20/17 History Allergies Allergy/AdvReac Type Severity Reaction Status Date / Time ampicillin Allergy Rash/Hives Verified 04/20/17 18:43 codeine Allergy Rash/Hives Verified 04/20/17 18:43 erythromycin base Allergy Rash/Hives Verified 04/20/17 18:43 lorazepam [From Ativan] Allergy Unknown Verified 04/20/17 17:15 Sulfa (Sulfonamide Allergy Rash/Hives Verified 04/20/17 18:43 Antibiotics) Physical Exam Vitals: Vital Signs Temp Pulse Pulse Resp BP BP Pulse Ox 04/21/17 12:00 97.1 F L 48 L 18 117/78 98 04/21/17 09:00 97.6 F 48 L 18 104/52 97 04/21/17 04:00 97.0 F L 51 L 18 122/71 98 04/21/17 00:00 41 L 04/20/17 22:00 98.0 F 39 L 16 146/68 97 04/20/17 21:19 97.6 F 41 L 18 141/82 98 04/20/17 21:00 97.9 F 51 L 16 128/60 98 04/20/17 20:39 97.8 F 47 L 16 160/65 98 04/20/17 19:00 38 L 14 156/70 97 04/20/17 18:55 42 L 04/20/17 18:50 40 L 14 146/66 96 04/20/17 17:11 99.2 F 41 L 18 142/64 97 Intake and Output 04/21/17 04/21/17 04/21/17 06:59 14:59 22:59 Other: Voiding Method Toilet Toilet # Voids 1 Weight 75.3 kg - Constitutional General appearance: no acute distress - EENT Eyes: PERRLA - Respiratory Respiratory: bilateral: CTA, negative: dullness, rales, rhonchi - Cardiovascular Heart rate: 35 (no murmurs appreciated) Rhythm: regular - Gastrointestinal General gastrointestinal: normal bowel sounds, no organomegaly, soft - Neurologic Neurologic: CNII-XII intact - Psychiatric Psychiatric: A&O x's 3 Results CBC & Chem 7: 04/20/17 18:21 04/20/17 18:21 Labs: Abnormal Lab Results - Last 24 Hours (Table) 04/20/17 04/20/17 04/20/17 Range/Units 18:21 18:21 19:00 WBC 11.5 H (3.8-10.6) k/uL Chloride 108 H (98-107) mmol/L Glucose 142 H (74-99) mg/dL POC Glucose (mg/dL) (75-99) mg/dL Alkaline Phosphatase 180 H (38-126) U/L Total Protein 6.2 L (6.3-8.2) g/dL Albumin 3.4 L (3.5-5.0) g/dL Urine Glucose (UA) 1+ H (Negative) 04/20/17 04/21/17 04/21/17 Range/Units 23:03 06:15 11:53 WBC (3.8-10.6) k/uL Chloride (98-107) mmol/L Glucose (74-99) mg/dL POC Glucose (mg/dL) 105 H 152 H 192 H (75-99) mg/dL Alkaline Phosphatase (38-126) U/L Total Protein (6.3-8.2) g/dL Albumin (3.5-5.0) g/dL Urine Glucose (UA) (Negative) Thrombosis Risk Factor Assmnt - Choose All That Apply Any of the Below Risk Factors Present?: Yes Each Factor Represents 1 point: Obesity (BMI >25) Other Risk Factors: Yes Each Risk Factor Represents 2 Points: Age 61-74 years Thrombosis Risk Factor Assessment Total Risk Factor Score: 3 Thrombosis Risk Factor Assessment Level: Moderate Risk Assessment and Plan Plan: symptomatic bradycardia in pt on a b ana DM2 HTN H/o tobacco use Atypical CP Plan encourage ambulation echo was reviewed cardiology eval EF 55-60%, no valvular dysfunction or wall motion abnormalities Pacer pads, if clinically worse pace to 60bpm
[2017-04-21] MEDS: MORPHINE SULFATE 2 MG/ML SYRINGE IVP PRN ×2 (16:21→23:33)
[2017-04-21 16:48] LABS: Glucose,Whole Blood 141 mg/dL (75-99)
[2017-04-21 20:47] LABS: Glucose,Whole Blood 181 mg/dL (75-99)
[2017-04-21] MEDS: ATORVASTATIN 20 MG TAB PO SCH (21:19)
[2017-04-21] MEDS: INSULIN GLARGINE 100 UNIT/ML 10 ML VIAL SQ SCH (21:21)
[2017-04-22 06:04] LABS: Glucose,Whole Blood 132 mg/dL (75-99)
[2017-04-22] MEDS: INSULIN LISPRO (humaLOG) 300 UNIT/3 ML VIAL SQ SCH ×3 (07:56→17:27)
[2017-04-22] MEDS ORDERED: REGADENOSON 0.4 MG/5 ML SYRINGE IV ONE (10:03)
[2017-04-22 11:34] LABS: Glucose,Whole Blood 113 mg/dL (75-99)
[2017-04-22] MEDS ORDERED: KETOROLAC 30 MG/ML 1 ML VIAL IVP PRN (11:45)
[2017-04-22] MEDS: ISOSORBIDE MONONITRATE ER 30 MG TAB.ER.24H PO SCH (11:46)
[2017-04-22] MEDS ORDERED: KETOROLAC 30 MG/ML 1 ML VIAL IVP SCH (12:00)
[2017-04-22] MEDS: MORPHINE SULFATE 2 MG/ML SYRINGE IVP PRN ×3 (12:42→21:10)
--- NOTE | 2017-04-22 14:38 | P.PN ---
Subjective Principal diagnosis: Bradycardia, chest pain This 62-year-old female was admitted mainly with the tiredness and bradycardia. Recently patient was started on metoprolol because of complaints of chest pain. She was subsequently supposed to have had nuclear stress test. Patient never had testing done. We discontinued metoprolol and heart rate showed some improvement. Patient had some vague chest pains last night. Patient is being scheduled for a nuclear stress test tomorrow. Hopefully by the time heart rate will improve. Further recommendations depend upon the clinical course Objective - Vital Signs Vital signs: Vital Signs Temp 97.2 F L 04/22/17 12:30 Pulse 48 L 04/22/17 12:30 Resp 18 04/22/17 12:30 BP 130/58 04/22/17 12:30 Pulse Ox 98 04/22/17 12:30 Intake & Output 04/21/17 04/22/17 04/22/17 18:59 06:59 18:59 Intake Total 460 Output Total 600 Balance -140 Weight 75.3 kg Intake: Oral 460 Output: Urine 600 Other: Voiding Method Toilet Toilet # Voids 2 1 2 - Exam GENERAL EXAM: Patient is alert and oriented and doesn't appear to be in any acute distress HEENT: Normocephalic. Normal reaction of pupils, equal size, normal range of extraocular motion. No erythema or exudates in the throat. NECK: No masses, no nuchal rigidity. CHEST: No chest wall deformity. LUNGS: Equal air entry with no crackles or wheeze. HEART: S1 and S2 normal with no audible mumurs or gallops. Regular rhythm, femorals equal on both sides.. ABDOMEN: No hepatosplenomegaly, normal bowel sounds, no guarding or rigidity. SKIN: No rashes CENTRAL NERVOUS SYSTEM: No focal deficits. EXTREMITIES: No cyanosis, clubbing or edema. - Labs CBC & Chem 7: 04/20/17 18:21 04/20/17 18:21 Labs: Abnormal Lab Results - Last 24 Hours (Table) 04/21/17 04/21/17 04/22/17 Range/Units 16:24 20:45 05:56 POC Glucose (mg/dL) 141 H 181 H 132 H (75-99) mg/dL 04/22/17 Range/Units 11:22 POC Glucose (mg/dL) 113 H (75-99) mg/dL Assessment and Plan (1) Chest pain Status: Acute (2) Symptomatic sinus bradycardia Status: Acute Plan: Plan continue with current management. We'll hold beta ana and nuclear stress test tomorrow
--- NOTE | 2017-04-22 16:37 | P.PN ---
Subjective 62 yr old with history of DM2, HTN comes into the hospital with complaints of gen. weakness. pt was in normal health 2 days ago. States she has been taking atenolol for the 4 months Pt was recommended to have a echocardiogram and outpt stress test, pt has not followed up for those tests. pt was noted to have sinus bradycardia lowest HR in the 30s. Pt has taken her last dose of atenolol lastnight. Denies overusing it or change in the dose recently TSH was wnl. NO recent illnesses are reported Pt dose state to have intermitent chest pain , sharp on the right side EKG doesnot reveal st- t wave changes 04/22/17 doing better continues to have intermittent chest pain worsened with breathing no fevers, chills, nausea, vomiting. physical exam - Constitutional General appearance: no acute distress - EENT Eyes: PERRLA - Respiratory Respiratory: bilateral: CTA, negative: dullness, rales, rhonchi - Cardiovascular Heart rate: 35 (no murmurs appreciated) Rhythm: regular - Gastrointestinal General gastrointestinal: normal bowel sounds, no organomegaly, soft - Neurologic Neurologic: CNII-XII intact - Psychiatric Psychiatric: A&O x's 3 Objective - Vital Signs Vital signs: Vital Signs Temp 97.2 F L 04/22/17 12:30 Pulse 48 L 04/22/17 12:30 Resp 18 04/22/17 12:30 BP 130/58 04/22/17 12:30 Pulse Ox 98 04/22/17 12:30 Intake & Output 04/21/17 04/22/17 04/22/17 18:59 06:59 18:59 Intake Total 460 360 Output Total 600 Balance -140 360 Weight 75.3 kg Intake: Oral 460 360 Output: Urine 600 Other: Voiding Method Toilet Toilet # Voids 2 1 2 - Labs CBC & Chem 7: 04/20/17 18:21 04/20/17 18:21 Labs: Abnormal Lab Results - Last 24 Hours (Table) 04/21/17 04/21/17 04/22/17 Range/Units 16:24 20:45 05:56 POC Glucose (mg/dL) 141 H 181 H 132 H (75-99) mg/dL 04/22/17 Range/Units 11:22 POC Glucose (mg/dL) 113 H (75-99) mg/dL Assessment and Plan Plan: symptomatic bradycardia in pt on a b ana DM2 HTN H/o tobacco use Atypical CP Plan encourage ambulation hold b blockers musculoskeltal pain noted toradol will given stress test in the am [facility]
[2017-04-22 17:37] LABS: Glucose,Whole Blood 176 mg/dL (75-99)
[2017-04-22 20:52] LABS: Glucose,Whole Blood 115 mg/dL (75-99)
[2017-04-22] MEDS: ATORVASTATIN 20 MG TAB PO SCH (21:11)
[2017-04-22] MEDS: INSULIN GLARGINE 100 UNIT/ML 10 ML VIAL SQ SCH (21:17)
[2017-04-23 02:20] LABS: Glucose,Whole Blood 142 mg/dL (75-99)
[2017-04-23] MEDS ORDERED: AMINOPHYLLINE 500 MG/20 ML VIAL IV PRN (05:00)
[2017-04-23 05:59] LABS: Glucose,Whole Blood 121 mg/dL (75-99)
[2017-04-23] MEDS ORDERED: REGADENOSON 0.4 MG/5 ML SYRINGE IV ONE (06:00)
[2017-04-23] MEDS: INSULIN LISPRO (humaLOG) 300 UNIT/3 ML VIAL SQ SCH ×3 (06:39→16:43)
[2017-04-23] MEDS: MORPHINE SULFATE 2 MG/ML SYRINGE IVP PRN (10:35)
[2017-04-23] MEDS: ISOSORBIDE MONONITRATE ER 30 MG TAB.ER.24H PO SCH (10:35)
--- NOTE | 2017-04-23 10:55 | NM ---
EXAMINATION TYPE: NM stress lexiscan cardiolite DATE OF EXAM: 04/23/2017 COMPARISON: NONE HISTORY: Chest pain. TECHNIQUE: After the intravenous administration of 10.36 mCi Tc 99m Sestamibi - Cardiolite resting S PECT images acquired 45 minutes post injection. The patient received 0.4mg Lexiscan, 27.5 mCi Tc 99m Sestamibi - Stress images obtained [address] injection FINDINGS: Review of stress and rest SPECT images demonstrates a reversible perfusion defect involving the apex, apical lateral segment, mid inferior lateral segment, and basal inferior lateral segment in the dist ribution of the circumflex artery. Gated analysis shows hypokinesis in this region with an estimated left ventricular ejection fraction of 70 %. IMPRESSION: Reversible defect in the distribution of the circumflex artery with associated cardiac wall hypokines is. A Yellow message has been communicated to Leandro Londono via the [employer] system on 04/23/2017 10:52 AM, Message ID [id number].
[2017-04-23 11:58] LABS: Glucose,Whole Blood 144 mg/dL (75-99)
--- NOTE | 2017-04-23 14:47 | P.PN ---
Subjective Principal diagnosis: Bradycardia and chest pain This 62-year-old female was admitted mainly with the tiredness and bradycardia. Recently patient was started on metoprolol because of complaints of chest pain. She was subsequently supposed to have had nuclear stress test. Patient never had testing done. We discontinued metoprolol and heart rate showed some improvement. Patient had some vague chest pains last night. Patient is being scheduled for a nuclear stress test tomorrow. Hopefully by the time heart rate will improve. Further recommendations depend upon the clinical course. 04/23/2017 Patient seen and examined this morning, heart rate in the 50s. She did have another subsequent episode of chest discomfort. Echocardiogram with Doppler study was performed which revealed an ejection fraction of 55-60%. Patient was advised to undergo a Lexiscan stress test today. Blood pressure 104/60 with a heart rate in the low 60s. Objective - Vital Signs Vital signs: Vital Signs Temp 97.0 F L 04/23/17 08:00 Pulse 70 04/23/17 11:24 Resp 18 04/23/17 11:24 BP 103/66 04/23/17 11:24 Pulse Ox 98 04/23/17 11:24 Intake & Output 04/22/17 04/23/17 04/23/17 18:59 06:59 18:59 Intake Total 360 0 Output Total 1200 Balance -840 0 Weight 75.5 kg Intake: Oral 360 0 Output: Urine 1200 Other: Voiding Method Toilet # Voids 2 2 - Exam GENERAL EXAM: Patient is alert and oriented and doesn't appear to be in any acute distress HEENT: Normocephalic. Normal reaction of pupils, equal size, normal range of extraocular motion. No erythema or exudates in the throat. NECK: No masses, no nuchal rigidity. CHEST: No chest wall deformity. LUNGS: Equal air entry with no crackles or wheeze. HEART: S1 and S2 normal with no audible mumurs or gallops. Regular rhythm, femorals equal on both sides.. ABDOMEN: No hepatosplenomegaly, normal bowel sounds, no guarding or rigidity. SKIN: No rashes CENTRAL NERVOUS SYSTEM: No focal deficits. EXTREMITIES: No cyanosis, clubbing or edema. - Labs CBC & Chem 7: 04/20/17 18:21 04/20/17 18:21 Labs: Abnormal Lab Results - Last 24 Hours (Table) 04/22/17 04/22/17 04/23/17 Range/Units 17:12 20:50 02:09 POC Glucose (mg/dL) 176 H 115 H 142 H (75-99) mg/dL 04/23/17 04/23/17 Range/Units 05:56 11:44 POC Glucose (mg/dL) 121 H 144 H (75-99) mg/dL Assessment and Plan (1) Chest pain Status: Acute (2) Symptomatic sinus bradycardia Status: Acute Plan: From cardiology's perspective, we will continue to hold the patient's beta ana at this time. Patient has also been recommended to undergo a Lexiscan stress test today. Further recommendations will be based on those findings and the patient's clinical course. DNP note has been reviewed, I agree with a documented findings and plan of care. Patient was seen and examined.
[2017-04-23] MEDS ORDERED: ATORVASTATIN 80 MG TAB PO STA (14:53)
[2017-04-23] MEDS ORDERED: ALPRAZolam 0.5 MG TAB PO PRN (14:53)
[2017-04-23] MEDS ORDERED: ALPRAZolam 0.25 MG TAB PO PRN (14:53)
[2017-04-23] MEDS ORDERED: NITROGLYCERIN SL TABS 0.4 MG TAB SUBLINGUAL PRN (14:53)
[2017-04-23] MEDS ORDERED: ASPIRIN 325 MG TAB PO STA (14:53)
[2017-04-23] MEDS ORDERED: SODIUM CHLORIDE 0.9% 1,000 ML in EMPTY BAG 1 BAG IV ONE (14:53)
--- NOTE | 2017-04-23 15:19 | P.PN ---
Progress Note - Text Patient underwent a Lexiscan stress test today which revealed reversible defect in the distribution of the circumflex artery with associated cardiac wall hypokinesia. For this reason she was advised to undergo cardiac catheterization tomorrow with Dr. Londono. The risks and the benefits were explained to the patient in detail. She is in agreement to proceed. DNP note has been reviewed, I agree with a documented findings and plan of care. Patient was seen and examined.
[2017-04-23 16:38] LABS: Glucose,Whole Blood 75 mg/dL (75-99)
[2017-04-23 21:01] LABS: Glucose,Whole Blood 203 mg/dL (75-99)
[2017-04-23] MEDS: INSULIN GLARGINE 100 UNIT/ML 10 ML VIAL SQ SCH (21:07)
[2017-04-24] MEDS: INSULIN LISPRO (humaLOG) 300 UNIT/3 ML VIAL SQ SCH ×3 (02:12→17:38)
[2017-04-24 05:51] LABS: Glucose,Whole Blood 122 mg/dL (75-99)
[2017-04-24] MEDS: ISOSORBIDE MONONITRATE ER 30 MG TAB.ER.24H PO SCH (06:15)
[2017-04-24] MEDS ORDERED: ASPIRIN 325 MG TAB PO ONE (07:00)
[2017-04-24] MEDS ORDERED: ATORVASTATIN 80 MG TAB PO ONE (07:00)
[2017-04-24] MEDS ORDERED: SODIUM CHLORIDE 0.9% 1,000 ML IV ONE (08:12)
[2017-04-24] MEDS ORDERED: fentaNYL (PF) 50 MCG/ML 2 ML AMP ONE (08:14)
[2017-04-24] MEDS ORDERED: MIDAZOLAM 2 MG/2 ML VIAL ONE (08:14)
[2017-04-24] MEDS ORDERED: MIDAZOLAM 2 MG/2 ML VIAL IV ONE (08:18)
[2017-04-24] MEDS ORDERED: fentaNYL (PF) 50 MCG/ML 2 ML AMP IV ONE (08:18)
[2017-04-24] MEDS ORDERED: LIDOCAINE 2% INJ 20 MG/ML SQ ONE ×2 (08:21→08:22)
[2017-04-24] MEDS ORDERED: IOHEXOL 350 MG/ML 125ML BOTTLE INJ ONE (08:42)
[2017-04-24] MEDS ORDERED: RX INFO: IV CONTRAST WAS GIVEN 1 EACH MISC MISCELLANE PRN (08:43)
[2017-04-24] MEDS ORDERED: SODIUM CHLORIDE 0.9% 1,000 ML IV SCH (08:45)
--- NOTE | 2017-04-24 08:49 | P.PCN ---
Date of Procedure: 04/24/17 Preoperative Diagnosis: Chest pain and positive stress test Postoperative Diagnosis: Normal coronary arteries Procedure(s) Performed: Left heart catheterization without left ventriculography Implants: Indications for Procedure: Operative Findings: Description of Procedure: HISTORY: This is a 62-year-old female with history of hypertension and chest pains who was recently started on Lopressor as anginal medications. Patient is admitted to the hospital with symptomatic bradycardia. Beta ana was held. Patient continued to have chest pain and had a nuclear stress test. This was reported as showing ischemia in the left circumflex distribution. Patient is advised to have a cardiac cath. CONSENT:I have discussed the risks, benefits and alternative therapies for the above-mentioned procedure and for both sedation/analgesia as well as necessary blood product administration, if indicated, as they pertain to this patient. The patient has indicated understanding and acceptance of the risks and procedures discussed. PROCEDURE: Patient was brought to the lab in a fasting state. Patient was given some IV sedation. The right groin is infiltrated with lidocaine and right femoral artery was entered using Seldinger technique. A 6-Yoruba catheter was left in place and selective coronary arteriography and left ventriculography was performed. Patient tolerated the procedure well. Femoral angiogram was performed and Angio-Seal was applied for hemostasis. No immediate complications were noted and patient was transferred to [facility] in a stable condition Conscious Sedation: Versed 1 mg Fentanyl 25 g Duration 14 minutes HEMODYNAMICS: . The aortic pressure is about 130/60. Left ankle end-diastolic pressure is 12. There was no gradient across the aortic valve SELECTIVE CORONARY ARTERIOGRAPHY: LEFT MAIN: Normal length and patent THE LEFT ANTERIOR DESCENDING CORONARY ARTERY: . This is a good caliber vessel giving rise to small diagonal septal branches. The LAD and its branches are free of occlusive disease THE LEFT CIRCUMFLEX AND IS CORONARY ARTERY: . This is a small-caliber, nondominant vessel giving rise to a small OM branch. This is free of any significant occlusive disease. THE INTERMEDIATE CORONARY ARTERY: This is a moderate caliber vessel and free of occlusive disease THE RIGHT CORONARY ARTERY: . This is a dominant vessel giving rise to good-sized PDA and PLV. This is free of any significant occlusive disease LEFT VENTRICULOGRAPHY: Not performed FINAL IMPRESSION: . Normal coronary arteries. Normal LV end-diastolic pressures PLAN: Risk factor modification PROGNOSIS: . Good
[2017-04-24 11:04] VITALS: RESP 16
[2017-04-24 11:33] LABS: Glucose,Whole Blood 258 mg/dL (75-99)
--- NOTE | 2017-04-24 12:03 | P.STRESS ---
- Stress Test Note Stress Test Results/Findings: Exam Performed: NM stress lexiscan cardiolite Exam Date: 04/23/17 Reason for Exam: CP / Bradycardia Height: 5 ft Weight: 76.2 kg Protocol: Lexiscan Stage: N/A Duration of Exercise: N/A Resting Heart Rate: 47 Resting Blood Pressure: 115/65 Maximum Achieved Heart Rate: 74 Maximum Achieved Blood Pressure: 118/62 85% PMHR: N/A 100% PMHR: N/A METS: N/A Technologist Comment: Stress Test Results/Findings: Patient was given Lexiscan injection over a period of 15 seconds. Resting EKG shows normal sinus rhythm with nonspecific ST-T changes. No ST segment depression suggestive ischemia is noted. Results of the nuclear study will follow.
[2017-04-24] MEDS: MORPHINE SULFATE 2 MG/ML SYRINGE IVP PRN (12:14)
[2017-04-24 12:51] VITALS: TEMP 97.1
[2017-04-24 16:06] VITALS: BP 107/59; PULSE 56
[2017-04-24 17:10] LABS: Glucose,Whole Blood 64 mg/dL (75-99)
[2017-04-24 17:24] LABS: Glucose,Whole Blood 123 mg/dL (75-99)
--- NOTE | 2017-04-25 06:51 | PN ---
DATE PATIENT SEEN: 04/23/2017 Ms. Destiny Mejia is a pleasant 62-year-old white female, date of 55, who is awaiting stress test today for tiredness and symptomatic bradycardia. She was started on metoprolol because of complaints of chest pain, now she has heart rates in the 40s with symptoms of dizziness and chest pressure. She is being scheduled for a nuclear stress and currently awaiting that this a.m. PHYSICAL EXAM: She is alert and oriented x3. LUNGS: Clear to auscultation. ABDOMEN: Soft, nontender. No rebound, rigidity or guarding. NEUROLOGICAL: Cranial nerves 2 through 12 grossly intact. EXTREMITIES: No cyanosis, clubbing or jaundice. SKIN: There is no rashes. PSYCHIATRIC: Answers questions appropriately. IMPRESSION: 1. Acute unstable angina. 2. Symptomatic bradycardia. 3. Beta ana adverse reaction to medication. PLAN: Stress test today. Hold the patient's beta ana. Further recommendations to follow. MTDD
--- NOTE | 2017-04-26 16:49 | DS ---
DISCHARGE MEDICATIONS: 1. Insulin Lantus 30 mg subcu q.h.s. 2. Nitroglycerine prn. 3. NovoLog 15 t.i.d. with meals. 4. Imdur 30 once daily. 5. Metformin 1000 one q.h.s. 6. Zoloft 100 one daily. 7. Zocor 40 one daily. She discontinued the Tenormin, Atenolol po q.h.s. She is to follow-up in one week. HOSPITAL COURSE: The patient is a pleasant 62 -year-old white female who was having chest pains. She has seen Dr. Londono who recommended the patient be placed on a beta ana. She underwent cardiac stress testing to rule out serial EKG and enzymes which the Lexiscan cardiac stress test showed some global dyskinesis in the lateral portion suggestive of ischemia. She underwent a heart catheterization which was negative with no significant coronary artery disease. The patient was then cleared for discharge from cardiac standpoint and she was doing well without any problems. Her beta ana was placed on hold. FINAL DIAGNOSES: 1. Symptomatic bradycardia secondary to Atenolol. 2. Diabetes Type 2 insulin requiring. 3. Morbid obesity. 4. Hyperlipidemia. 5. Depression. MTDD
== END 2017-04-24 18:39 | disposition home or self-care (01) | DRG 287 ==
LOC: EC 17:09 → 6SEL 21:08
PROVIDERS: ADMIT Family Medicine; ATTEND Family Medicine
PROC: B2111ZZ Fluoroscopy of Multiple Coronary Arteries using Low Osmolar Contrast (ICD-10-PCS; 2017-04-24)
PROC: 4A023N7 Measurement of Cardiac Sampling and Pressure, Left Heart, Percutaneous Approach (ICD-10-PCS; principal; 2017-04-24 08:05)
DX: R00.1 Bradycardia, unspecified (principal); E66.01 Morbid (severe) obesity due to excess calories; I10 Essential (primary) hypertension; T44.7X5A Adverse effect of beta-adrenoreceptor antagonists, initial encounter; E78.5 Hyperlipidemia, unspecified; F32.9 Major depressive disorder, single episode, unspecified; F43.10 Post-traumatic stress disorder, unspecified; E11.9 Type 2 diabetes mellitus without complications; Z79.4 Long term (current) use of insulin; Z79.84 Long term (current) use of oral hypoglycemic drugs; Z79.899 Other long term (current) drug therapy; Z90.49 Acquired absence of other specified parts of digestive tract; Z87.891 Personal history of nicotine dependence; Z96.651 Presence of right artificial knee joint; Z82.49 Family history of ischemic heart disease and other diseases of the circulatory system; Z88.1 Allergy status to other antibiotic agents; Z88.5 Allergy status to narcotic agent; Z88.2 Allergy status to sulfonamides; Z88.8 Allergy status to other drugs, medicaments and biological substances
CPT/HCPCS: 36415; 70450; 71020; 78452; 80053; 81003; 82140; 82550; 82553; 82803; 83605; 83735; 83880; 84443; 84484; 85025; 85610; 85730; 93005; 93017; 93306; 93458; 99285

== ENCOUNTER 2017-05-03 17:51 | Observation (INO) | payer MEDICARE ==
[2017-05-03] MEDS ORDERED: NITROGLYCERIN OINT 1 INCH/GM PACKET TOPICAL STA (18:24)
[2017-05-03] MEDS ORDERED: ASPIRIN 81 MG CHEW PO STA (18:24)
--- NOTE | 2017-05-03 18:27 | ED ---
General Adult HPI - General Source: patient, RN notes reviewed Mode of arrival: wheelchair Limitations: no limitations <Onofre Plasencia - Last Filed: 05/03/17 20:06> <Joaquim Alston - Last Filed: 05/03/17 20:34> - General Chief complaint: Chest Pain Stated complaint: CHEST PAIN, SYNCOPE Time Seen by Provider: 05/03/17 18:00 - History of Present Illness Initial comments: This is a 62-year-old female who states she has a past history significant for bradycardia. Patient states she was just recently catheterized and was told that the catheterization was inconclusive. Patient comes in today because she states she's had chest pain since this morning and she's had 3 episodes where she passed out. Patient states she's also little more short of breath than normal. Patient denies any headache patient denies numbness weakness. Patient denies being lightheaded currently. Patient denies any abdominal pain patient denies any nausea vomiting or diarrhea. Patient denies any recent fever chills or cough. Patient denies any back pain. Patient denies any leg swelling or calf pain (Onofre Plasencia) - Related Data Home Medications Medication Instructions Recorded Confirmed Insulin Glargine [Lantus] 30 unit SQ HS 05/01/16 05/03/17 Nitroglycerin 0.4 mg SUBLINGUAL Q5M PRN 04/06/17 05/03/17 Insulin Aspart [NovoLOG] 15 unit SQ TID-W/MEALS 04/20/17 05/03/17 Isosorbide Mononitrate ER [Imdur] 30 mg PO HS 04/20/17 05/03/17 Sertraline HCl [Zoloft] 100 mg PO HS 04/20/17 05/03/17 Simvastatin [Zocor] 40 mg PO HS 04/20/17 05/03/17 metFORMIN HCL 1,000 mg PO 04/20/17 05/03/17 Allergies Allergy/AdvReac Type Severity Reaction Status Date / Time ampicillin Allergy Rash/Hives Verified 05/03/17 20:03 codeine Allergy Rash/Hives Verified 05/03/17 20:03 erythromycin base Allergy Rash/Hives Verified 05/03/17 20:03 lorazepam [From Ativan] Allergy Unknown Verified 05/03/17 20:03 Sulfa (Sulfonamide Allergy Rash/Hives Verified 05/03/17 20:03 Antibiotics) Review of Systems ROS Other: All systems not noted in ROS Statement are negative. <Onofre Plasencia - Last Filed: 05/03/17 20:06> ROS Other: All systems not noted in ROS Statement are negative. <Joaquim Alston - Last Filed: 05/03/17 20:34> ROS Statement: Those systems with pertinent positive or pertinent negative responses have been documented in the HPI. Past Medical History Past Medical History: Chest Pain / Angina, Diabetes Mellitus, Hyperlipidemia Additional Past Medical History / Comment(s): diverticultitis, patient currently has hammer toes. History of Any Multi-Drug Resistant Organisms: None Reported Past Surgical History: Bariatric Surgery, Cholecystectomy, Orthopedic Surgery Additional Past Surgical History / Comment(s): sleeve 07/08, colon resection for diverticulitis, Right knee rplaced 2007, currently suffers from hammer toes Past Anesthesia/Blood Transfusion Reactions: No Reported Reaction Past Psychological History: Depression, PTSD Smoking Status: Never smoker Past Alcohol Use History: None Reported Past Drug Use History: None Reported - Past Family History Father Family Medical History: Cancer, COPD, Coronary Artery Disease (CAD) Additional Family Medical History / Comment(s): emphysema, prostate cancer and lung cancer. Mother Family Medical History: Coronary Artery Disease (CAD), Dementia, Diabetes Mellitus, Thyroid Disorder Additional Family Medical History / Comment(s): diverticulitis, <Onofre Plasencia - Last Filed: 05/03/17 20:06> General Exam Limitations: no limitations <Onofre Plasencia - Last Filed: 05/03/17 20:06> <Joaquim Alston - Last Filed: 05/03/17 20:34> - General Exam Comments Initial Comments: GENERAL: Patient is well-developed and well-nourished. Patient is nontoxic and well- hydrated and is in no acute distress. ENT: Neck is soft and supple. No significant lymphadenopathy is noted. Oropharynx is clear. Moist mucous membranes. Neck has full range of motion without eliciting any pain. EYES: The sclera were anicteric and conjunctiva were pink and moist. Extraocular movements were intact and pupils were equal round and reactive to light. Eyelids were unremarkable. PULMONARY: Unlabored respirations. Good breath sounds bilaterally. No audible rales rhonchi or wheezing was noted. CARDIOVASCULAR: There is a regular rate and rhythm without any murmurs gallops or rubs. ABDOMEN: Soft and nontender with normal bowel sounds. No palpable organomegaly was noted. There is no palpable pulsatile mass. SKIN: Skin is clear with no lesions or rashes and otherwise unremarkable. NEUROLOGIC: Patient is alert and oriented x3. Cranial nerves II through XII are grossly intact. Motor and sensory are also intact. Normal speech, volume and content. Symmetrical smile. MUSCULOSKELETAL: Normal extremities with adequate strength and full range of motion. No lower extremity swelling or edema. No calf tenderness. LYMPHATICS: No significant lymphadenopathy is noted PSYCHIATRIC: Normal psychiatric evaluation. (Onofre Plasencia) Medical Decision Making - Lab Data Result diagrams: 05/03/17 19:08 05/03/17 19:08 <Onofre Plasencia - Last Filed: 05/03/17 20:06> - Lab Data Result diagrams: 05/03/17 19:08 05/03/17 19:08 <Joaquim Alston - Last Filed: 05/03/17 20:34> - Medical Decision Making EKG shows sinus bradycardia with PACs at 66 bpm SD interval 166 dresses 84 QT interval is 426 QTC is 411. Patient's EKG shows no ST segment elevation or depression or T wave normalities are noted. X-rays of be taking over the care of this patient at 7:30 (Onofre Plasencia) I receive this patient has a sign out, pending the return of the patient's studies, which are now all back. Discussed the case with her physician Dr. Luciano and patient will be admitted for additional telemetry monitoring overnight. (Joauqim Alston) - Lab Data Lab Results 05/03/17 05/03/17 05/03/17 Range/Units 19:08 19:08 19:08 WBC 10.3 (3.8-10.6) k/uL RBC 4.35 (3.80-5.40) m/uL Hgb 13.1 (11.4-16.0) gm/dL Hct 39.3 (34.0-46.0) % MCV 90.3 (80.0-100.0) fL MCH 30.0 (25.0-35.0) pg MCHC 33.3 (31.0-37.0) g/dL RDW 12.9 (11.5-15.5) % Plt Count 248 (150-450) k/uL Neutrophils % 71 % Lymphocytes % 21 % Monocytes % 5 % Eosinophils % 2 % Basophils % 0 % Neutrophils # 7.3 (1.3-7.7) k/uL Lymphocytes # 2.2 (1.0-4.8) k/uL Monocytes # 0.5 (0-1.0) k/uL Eosinophils # 0.2 (0-0.7) k/uL Basophils # 0.0 (0-0.2) k/uL Sodium 136 L (137-145) mmol/L Potassium 4.3 (3.5-5.1) mmol/L Chloride 105 (98-107) mmol/L Carbon Dioxide 22 (22-30) mmol/L Anion Gap 9 mmol/L BUN 12 (7-17) mg/dL Creatinine 0.73 (0.52-1.04) mg/dL Est GFR (MDRD) Af Amer >60 (>60 ml/min/1.73 sqM) Est GFR (MDRD) Non-Af >60 (>60 ml/min/1.73 sqM) Glucose 352 H (74-99) mg/dL Calcium 9.5 (8.4-10.2) mg/dL Magnesium 1.9 (1.6-2.3) mg/dL Total Bilirubin 0.4 (0.2-1.3) mg/dL AST 18 (14-36) U/L ALT 28 (9-52) U/L Alkaline Phosphatase 206 H (38-126) U/L Total Creatine Kinase 42 (30-135) U/L CK-MB (CK-2) <0.2 (0.0-2.4) ng/mL CK-MB (CK-2) Rel Index Troponin I <0.012 (0.000-0.034) ng/mL Total Protein 6.3 (6.3-8.2) g/dL Albumin 3.5 (3.5-5.0) g/dL Disposition <Onofre Plasencia - Last Filed: 05/03/17 20:06> <Joaquim Alston - Last Filed: 05/03/17 20:34> Clinical Impression: Syncope Disposition: ADMITTED IP TO THIS HOSP Condition: Fair Referrals: Kevyn Luciano DO [Primary Care Provider] - 1-2 days
--- NOTE | 2017-05-03 19:15 | XR ---
EXAMINATION TYPE: XR chest 2V DATE OF EXAM: 05/03/2017 COMPARISON: 04/20/2017 HISTORY: pain TECHNIQUE: Frontal and lateral views of the chest are obtained. FINDINGS: There is no focal air space opacity, pleural effusion, or pneumothorax seen. The cardiac s ilhouette size is mildly enlarged, unchanged from the prior study. The osseous structures are intact. IMPRESSION: No acute cardiopulmonary process.
[2017-05-03 19:26] LABS: Basophils % (A) 0 %; CH 29.2; CHCM 32.5; Eosinophils # (A) 0.2 k/uL (0-0.7); Eosinophils % (A) 2 %; HCT 39.3 % (34.0-46.0); HDW 2.55; HGB 13.1 gm/dL (11.4-16.0); Luc # (Auto) 0.16; Luc % (Auto) 2; Lymphocytes # (A) 2.2 k/uL (1.0-4.8); Lymphocytes % (A) 21 %; MCHC 33.3 g/dL (31.0-37.0); MCV 90.3 fL (80.0-100.0); Mean Platelet Volume 7.4; Monocytes # (A) 0.5 k/uL (0-1.0); Monocytes % (A) 5 %; Neutrophils # (A) 7.3 k/uL (1.3-7.7); Neutrophils % (A) 71 %; RBC 4.35 m/uL (3.80-5.40); RDW 12.9 % (11.5-15.5); WBC 10.3 k/uL (3.8-10.6); WBC (Perox) 10.66
[2017-05-03 19:37] LABS: ALT 28 U/L (9-52); AST 18 U/L (14-36); Alkaline Phosphatase 206 U/L (38-126); Anion Gap 9 mmol/L; Blood Urea Nitrogen 12 mg/dL (7-17); Calcium 9.5 mg/dL (8.4-10.2); Carbon Dioxide 22 mmol/L (22-30); Chloride 105 mmol/L (98-107); Glucose 352 mg/dL (74-99); Magnesium 1.9 mg/dL (1.6-2.3); Non-African American GFR(MDRD) >60 (>60 ml/min/1.73 sqM); Potassium 4.3 mmol/L (3.5-5.1); Sodium 136 mmol/L (137-145); Total Bilirubin 0.4 mg/dL (0.2-1.3); Total Protein 6.3 g/dL (6.3-8.2)
[2017-05-03 19:55] LABS: Creatine Kinase 42 U/L (30-135)
[2017-05-03 20:07] LABS: Creatine Kinase MB <0.2 ng/mL (0.0-2.4); Troponin I <0.012 ng/mL (0.000-0.034)
[2017-05-03 20:10] LABS: INR 0.9 (<1.2); Prothrombin Time 9.6 sec (9.0-12.0)
[2017-05-03] MEDS ORDERED: NITROGLYCERIN SL TABS 0.4 MG TAB SUBLINGUAL PRN (20:30)
[2017-05-03] MEDS: SODIUM CHLORIDE 0.9% 1,000 ML IV SCH (20:38)
[2017-05-03 20:54] LABS: Partial Thromboplastin Time 19.1 sec (22.0-30.0)
[2017-05-03] MEDS ORDERED: ISOSORBIDE MONONITRATE ER 30 MG TAB.ER.24H PO SCH (21:00)
[2017-05-03] MEDS ORDERED: metFORMIN 500 MG TAB PO SCH (21:00)
[2017-05-03] MEDS ORDERED: ATORVASTATIN 20 MG TAB PO SCH (21:00)
[2017-05-03] MEDS ORDERED: SERTRALINE 100 MG TAB PO SCH (21:00)
[2017-05-03] MEDS ORDERED: INSULIN GLARGINE 100 UNIT/ML 10 ML VIAL SQ SCH (21:00)
[2017-05-03 22:06] LABS: Glucose,Whole Blood 242 mg/dL (75-99)
[2017-05-03] MEDS: INSULIN LISPRO (humaLOG) 300 UNIT/3 ML VIAL SQ SCH (22:12)
[2017-05-04 01:23] LABS: Creatine Kinase 37 U/L (30-135)
[2017-05-04 01:36] LABS: Creatine Kinase MB 0.3 ng/mL (0.0-2.4); Troponin I <0.012 ng/mL (0.000-0.034)
[2017-05-04 06:55] LABS: Glucose,Whole Blood 183 mg/dL (75-99)
[2017-05-04 07:30] LABS: Cholesterol 121 mg/dL (<200); Creatine Kinase 34 U/L (30-135); HDL Cholesterol 36 mg/dL (40-60)
[2017-05-04 07:43] LABS: Creatine Kinase MB 0.3 ng/mL (0.0-2.4); Troponin I <0.012 ng/mL (0.000-0.034)
[2017-05-04] MEDS ORDERED: ASPIRIN 325 MG TAB PO SCH (09:00)
[2017-05-04] MEDS ORDERED: ENOXAPARIN 40 MG/0.4 ML SYRINGE SQ SCH (09:00)
[2017-05-04] MEDS: INSULIN LISPRO (humaLOG) 300 UNIT/3 ML VIAL SQ SCH ×4 (11:14→12:52)
[2017-05-04 12:05] VITALS: BP 140/63; PULSE 60; RESP 18; TEMP 97.9
[2017-05-04 12:07] LABS: Glucose,Whole Blood 207 mg/dL (75-99)
[2017-05-04 12:33] LABS: Hemoglobin A1C 10.6 % (4.2-6.1)
[2017-05-04] MEDS: SODIUM CHLORIDE 0.9% 1,000 ML IV SCH (12:51)
--- NOTE | 2017-05-05 08:48 | CONS ---
This is a 62-year-old lady who sees Dr. Londono in the outpatient setting. She had a recent evaluation by cardiac catheterization on 04/24/2017 when she presented with bradycardia, symptomatic and had abnormal stress test. The cardiac catheterization revealed that she has no obstructive CAD. Normal LV pressures were noted. LV gram was not performed but by echocardiogram her systolic function was normal. She was placed on an event monitor and sent home. She comes in because of three episodes of lightheadedness and dizziness which she describes as an episode at about 11 a.m. yesterday when she was driving to the [employer], she felt dizzy, lightheaded as if she was going to pass out. It is not clear if she actually passed out or not. She also complained of some sharp chest pains. She had previous episodes of lightheadedness earlier in the day, which was yesterday, 05/03 between 9 and 11 a.m. The patient has a current event monitor. I actually obtained the recordings from the event monitor and in the morning of May 03 she did not have any significant hillary or tachyarrhythmias. She has some asymptomatic bradycardia and some junctional that occurred at about 11 p.m. on 05/03 but we did not see anything earlier in the day on 05/03 to suggest any significant bradyarrhythmia. She is asymptomatic at the time of my evaluation, resting comfortably. She has type 2 diabetes mellitus, hyperlipidemia and a recent cardiac cath revealed no significant obstructive CAD. PAST MEDICAL HISTORY: 1. Chest pain with a negative cardiac cath 04/24. 2. Type 2 diabetes mellitus. 3. Hypertension. 4. Hyperlipidemia. 5. History of previous gastric sleeve surgery and colon resection, diverticulitis, right knee arthroplasty. MEDICATIONS AT HOME: Include Imdur, insulin, simvastatin, Metformin and also takes Lantus insulin. On examination, blood pressure is 130/70, pulse rate is about 58 per minute and regular. HEENT: Unremarkable. Fundus was not examined by me. NECK: Supple. No JVD. I do not hear a carotid bruit. HEART: Reveals S1/S2 heard normally. There was a short systolic murmur audible. LUNGS: Reveal decent air entry bilateral lung lopez. ABDOMEN: Soft, nontender. LOWER EXTREMITIES: Reveal normal pulses, no edema. CENTRAL NERVOUS SYSTEM: Normal. EKG revealed sinus bradycardia at a rate of 56 beats per minute, no acute changes. IMPRESSION: 1. Episodes of dizziness and lightheadedness without clear cut correlation with patient's event monitor of any significant bradyarrhythmia. 2. History of type 2 diabetes mellitus. 3. Recent unremarkable cardiac cath after an abnormal Lexiscan. 4. Hypertension. 5. Hypercholesterolemia. RECOMMENDATIONS: I recommend that we increase activity, see how she responds to increased activity with her heart rate. TSH was normal in the last two weeks. We will discharge her and continue event monitor and have her see Dr. Londono in the next week or so. No aggressive intervention is necessary at this time. We will continue to do the event monitor recordings. Discussed with the patient at length. BRAULIO
== END 2017-05-04 16:02 | disposition home or self-care (01) ==
LOC: EC 17:51 → 3OBS 20:30
PROVIDERS: ADMIT Family Medicine; ATTEND Family Medicine
DX: R42 Dizziness and giddiness (principal); R07.9 Chest pain, unspecified; R00.1 Bradycardia, unspecified; E11.9 Type 2 diabetes mellitus without complications; E78.5 Hyperlipidemia, unspecified; E78.00 Pure hypercholesterolemia, unspecified; I10 Essential (primary) hypertension; F32.9 Major depressive disorder, single episode, unspecified; F43.10 Post-traumatic stress disorder, unspecified; Z79.899 Other long term (current) drug therapy; Z79.4 Long term (current) use of insulin; Z79.84 Long term (current) use of oral hypoglycemic drugs; Z88.1 Allergy status to other antibiotic agents; Z88.5 Allergy status to narcotic agent; Z88.0 Allergy status to penicillin; Z88.2 Allergy status to sulfonamides; Z88.8 Allergy status to other drugs, medicaments and biological substances; Z82.5 Family history of asthma and other chronic lower respiratory diseases; Z82.49 Family history of ischemic heart disease and other diseases of the circulatory system; Z98.84 Bariatric surgery status
CPT/HCPCS: 99285; 36415; 93005; 80061; 80053; 83036; 82550 ×2; 82553 ×2; 83735; 84484 ×2; 85025; 85610; 85730; 71020; G0378 ×2; J1650

== ENCOUNTER → 2017-05-15 | Outpatient (CLI) | payer MEDICARE ==
--- NOTE | 2017-05-15 14:21 | NM ---
EXAMINATION TYPE: NM bone 3 phase DATE OF EXAM: 05/15/2017 COMPARISON: NONE HISTORY: Pain in right knee Triple phase bone scintigraphy was performed following the injection of26 mCi Tc 99m MDP. Immediate images and 5 hours post injection images acquired. FINDINGS: Blood flow: No abnormal blood flow is evident either knee. Blood pool: Blood pool images appear symmetrical. Note is made of a prosthesis within the right knee. Static images: There is increased radiotracer accumulation along the tibial plateau the right knee wh ich can related to patient's surgery. Diffuse degenerative type uptake is within the left knee. IMPRESSION: 1. Suspicious uptake on all 3 phases of bone scan to suggest osteomyelitis is not evident. 2. Abnormal uptake adjacent to the prosthesis at the right knee suggest loosening is not evident. 3. Findings appear to be postsurgical in nature at the right knee. Degenerative type changes appear t o be present left knee.
[2017-05-15 14:24] LABS: Basophils # (A) 0.1 k/uL (0-0.2); Basophils % (A) 1 %; CH 30.3; CHCM 32.5; Eosinophils # (A) 0.3 k/uL (0-0.7); Eosinophils % (A) 3 %; HCT 42.1 % (34.0-46.0); HDW 2.49; HGB 13.3 gm/dL (11.4-16.0); Luc # (Auto) 0.12; Luc % (Auto) 2; Lymphocytes # (A) 1.9 k/uL (1.0-4.8); Lymphocytes % (A) 23 %; MCH 29.6 pg (25.0-35.0); MCHC 31.7 g/dL (31.0-37.0); MCV 93.5 fL (80.0-100.0); Mean Platelet Volume 7.9; Monocytes # (A) 0.5 k/uL (0-1.0); Monocytes % (A) 6 %; Neutrophils # (A) 5.3 k/uL (1.3-7.7); Neutrophils % (A) 66 %; RBC 4.51 m/uL (3.80-5.40); RDW 13.9 % (11.5-15.5); WBC 8.1 k/uL (3.8-10.6); WBC (Perox) 7.58
[2017-05-15 15:18] LABS: Erythrocyte Sedimentation Rate 26 mm/hr (0-20)
== END | disposition home or self-care (01) ==
LOC: RADNMMAIN 06:43
PROVIDERS: ATTEND Orthopaedic Surgery
DX: M79.661 Pain in right lower leg (principal); R93.7 Abnormal findings on diagnostic imaging of other parts of musculoskeletal system; Z98.890 Other specified postprocedural states; Z88.2 Allergy status to sulfonamides; Z88.5 Allergy status to narcotic agent; Z88.1 Allergy status to other antibiotic agents
CPT/HCPCS: 85652; 85025; 86140; 78315; 36415; A9503

== ENCOUNTER → 2017-06-04 | Outpatient (CLI) | payer MEDICARE ==
[2017-06-04 15:45] VITALS: BP 135/63; PULSE 56; RESP 15; TEMP 98.6; BMI 33.2
--- NOTE | 2017-06-04 16:06 | P.HPBAR ---
Bariatric H&P - History & Physicial H&P Date: 06/04/17 History & Physicial: Visit/CC: 2 year sleeve f/u (June 2015) Patient initial contact: Initial weight: 80.739 kg Initial weight in pounds: 178.00 Height: 4 ft 11.5 in Initial BMI: 35.3 Last weight: 168 pounds Current weight: 75.931 kg Current weight in pounds: 167.40 Current BMI: 33.2 [place] body weight (based on NIH guidelines): 44.225 kg Excess body weight loss: 13.1% The patient is a 62 year-old F who presents for Bariatric Assessment. The patient presents today for sleeve gastrectomy follow-up. She is a trouble maintaining her blood sugar levels. She has diabetes and consistently sees sugar levels and the 2-300 range. She has some minimal GERD. Past Medical History Past Medical History: Chest Pain / Angina, Diabetes Mellitus, Hyperlipidemia Additional Past Medical History / Comment(s): diverticultitis, patient currently has hammer toes. history of alcohol abuse quit in the , plantar fascietis History of Any Multi-Drug Resistant Organisms: None Reported Past Surgical History: Bariatric Surgery, Cholecystectomy, Orthopedic Surgery Additional Past Surgical History / Comment(s): sleeve 07/09, colon resection for diverticulitis, Right knee replaced 2007, currently suffers from hammer toes Past Anesthesia/Blood Transfusion Reactions: No Reported Reaction Smoking Status: Never smoker - Past Family History Father Family Medical History: Cancer, COPD, Coronary Artery Disease (CAD) Additional Family Medical History / Comment(s): emphysema, prostate cancer and lung cancer. Mother Family Medical History: Coronary Artery Disease (CAD), Dementia, Diabetes Mellitus, Thyroid Disorder Additional Family Medical History / Comment(s): diverticulitis, Surgical - Exam Vital Signs Temp Pulse Resp BP 98.6 F 56 L 15 135/63 06/04/17 15:31 06/04/17 15:31 06/04/17 15:31 06/04/17 15:31 - General well developed, no distress - Eyes PERRL - Abdomen Abdomen: soft, non tender Bariatric Assessment & Plan Plan: The patient's we will see the dietitian next month. She'll work on monitoring her blood sugar levels and appropriately treating her blood sugar. The patient' s GERD symptoms are minimal and will be observed. Bariatric Checklist Checklist: Plan: Checklist: EGD: 1. Hiatal hernia: 2. H. Pylori: HgbA1c: Vitamin D: Smoking: Never smoker Primary care physician referral: alexandrea joaquin Psychiatry clearance: Cardiology clearance: Sleep study: Diet journal: VTE risk score: VTE risk level: Rehab needs at discharge:
== END | disposition home or self-care (01) ==
LOC: BARWHC3 14:24
PROVIDERS: ATTEND Surgery
DX: Z48.815 Encounter for surgical aftercare following surgery on the digestive system (principal); K21.9 Gastro-esophageal reflux disease without esophagitis; E66.01 Morbid (severe) obesity due to excess calories; D50.8 Other iron deficiency anemias; E55.9 Vitamin D deficiency, unspecified; Z98.84 Bariatric surgery status
CPT/HCPCS: 99211

== ENCOUNTER → 2017-07-30 | Outpatient (CLI) | payer MEDICARE ==
[2017-07-30 15:57] VITALS: BP 163/75; PULSE 57; RESP 16; TEMP 97.9; BMI 24.6
--- NOTE | 2017-07-30 16:49 | P.HPBAR ---
Bariatric H&P - History & Physicial H&P Date: 07/30/17 History & Physicial: Visit/CC: Sleeve follow up Patient initial contact: Initial weight: 80.739 kg Initial weight in pounds: 178.00 Height: 5 ft 9.5 in Initial BMI: 25.9 Last weight: Current weight: 76.714 kg Current weight in pounds: 169.00 Current BMI: 24.6 [place] body weight (based on NIH guidelines): 66.905 kg Excess body weight loss: 29.5% The patient is a 62 year-old F who presents for Bariatric Assessment. Patient presents today for sleeve gastrectomy follow-up. Her weight is remain stable. She still has elevated blood sugars. She admits to snacking after midnight. She's had some mild GERD. Past Medical History Past Medical History: Chest Pain / Angina, Diabetes Mellitus, Hyperlipidemia Additional Past Medical History / Comment(s): diverticultitis, patient currently has hammer toes. history of alcohol abuse quit in the , plantar fascietis History of Any Multi-Drug Resistant Organisms: None Reported Past Surgical History: Bariatric Surgery, Cholecystectomy, Orthopedic Surgery Additional Past Surgical History / Comment(s): sleeve 07/09, colon resection for diverticulitis, Right knee replaced 2007, currently suffers from hammer toes Past Anesthesia/Blood Transfusion Reactions: No Reported Reaction Past Psychological History: Depression, PTSD Additional Psychological History / Comment(s): patient takes zoloft daily Smoking Status: Never smoker Past Alcohol Use History: None Reported Past Drug Use History: None Reported - Past Family History Father Family Medical History: Cancer, COPD, Coronary Artery Disease (CAD) Additional Family Medical History / Comment(s): emphysema, prostate cancer and lung cancer. Mother Family Medical History: Coronary Artery Disease (CAD), Dementia, Diabetes Mellitus, Thyroid Disorder Additional Family Medical History / Comment(s): diverticulitis, Surgical - Exam Vital Signs Temp Pulse Resp BP 97.9 F 57 L 16 163/75 07/30/17 15:53 07/30/17 15:53 07/30/17 15:53 07/30/17 15:53 - General well developed, no distress - Eyes PERRL - Cardiovascular Rhythm: regular - Abdomen Abdomen: soft, non tender Bariatric Assessment & Plan Plan: The patient's GERD symptoms are minimal and will be observed. I recommended she stop eating after midnight. She will be following up with Dr. Joaquin regarding her insulin and blood sugar. She'll follow-up in one month. Bariatric Checklist Checklist: Plan: Checklist: EGD: 1. Hiatal hernia: 2. H. Pylori: HgbA1c: Vitamin D: Smoking: Never smoker Primary care physician referral: alexandrea joaquin Psychiatry clearance: Cardiology clearance: Sleep study: Diet journal: VTE risk score: VTE risk level: Rehab needs at discharge:
== END | disposition home or self-care (01) ==
LOC: BARWHC3 15:16
PROVIDERS: ATTEND Surgery
DX: Z09 Encounter for follow-up examination after completed treatment for conditions other than malignant neoplasm (principal); E11.9 Type 2 diabetes mellitus without complications; E78.5 Hyperlipidemia, unspecified; F32.9 Major depressive disorder, single episode, unspecified; F43.10 Post-traumatic stress disorder, unspecified; Z98.84 Bariatric surgery status
CPT/HCPCS: 99211

== ENCOUNTER → 2018-01-16 | Outpatient (CLI) | payer MEDICARE ==
[2018-01-16 13:25] LABS: HGB 13.3 gm/dL (11.4-16.0); MCH 28.5 pg (25.0-35.0); MCHC 32.4 g/dL (31.0-37.0); MCV 88.1 fL (80.0-100.0); Mean Platelet Volume 7.5; Platelet Count 285 k/uL (150-450); RBC 4.66 m/uL (3.80-5.40); RDW 13.4 % (11.5-15.5)
[2018-01-16 13:40] LABS: ALT 19 U/L (9-52); AST 17 U/L (14-36); Albumin 3.5 g/dL (3.5-5.0); Alkaline Phosphatase 157 U/L (38-126); Anion Gap 9 mmol/L; Blood Urea Nitrogen 10 mg/dL (7-17); Calcium 9.4 mg/dL (8.4-10.2); Carbon Dioxide 28 mmol/L (22-30); Chloride 103 mmol/L (98-107); Cholesterol 179 mg/dL (<200); Glucose 262 mg/dL (74-99); HDL Cholesterol 47 mg/dL (40-60); LDL Cholesterol,Calculated 101 mg/dL (0-99); Potassium 4.5 mmol/L (3.5-5.1); Sodium 140 mmol/L (137-145); Total Bilirubin 0.8 mg/dL (0.2-1.3); Total Protein 6.2 g/dL (6.3-8.2); Triglycerides 157 mg/dL (<150)
[2018-01-16 13:56] LABS: T4, Free (Free Thyroxine) 1.12 ng/dL (0.78-2.19)
[2018-01-16 21:03] LABS: Hemoglobin A1C 12.6 % (4.0-6.0)
== END | disposition home or self-care (01) ==
LOC: LABWHC1 12:36
PROVIDERS: ATTEND Nurse Practitioner Acute Care
DX: Z00.00 Encounter for general adult medical examination without abnormal findings (principal); E78.2 Mixed hyperlipidemia; E55.9 Vitamin D deficiency, unspecified; E11.9 Type 2 diabetes mellitus without complications
CPT/HCPCS: 36415; 80053; 80061; 82043; 82306; 82570; 83036; 84156; 84439; 84443; 85027

== ENCOUNTER → 2018-02-15 | Outpatient (CLI) | payer MEDICARE ==
[2018-02-15 17:30] LABS: Blood Urea Nitrogen 11 mg/dL (7-17)
--- NOTE | 2018-02-16 08:27 | CT ---
EXAMINATION TYPE: CT abdomen pelvis w con DATE OF EXAM: 02/15/2018 COMPARISON: 06/16/2012 INDICATION: Mid abdominal pain x 1 week. DLP: 806.1 mGycm, Automated exposure control for dose reduction was used. CONTRAST: 100 mL of Isovue M300. Study performed with Oral Contrast TECHNIQUE: Axial images were obtained from above the diaphragm to the pubic rami in the axial plane a t 5 mm thick sections. Reconstructed images are reviewed on the computer in the coronal plane. FINDINGS: Limited CT sections are obtained the lung bases. The lung bases are clear. Small hiatal hernia is p resent. There is a postsurgical changes within the stomach CT ABDOMEN: Liver: Normal Spleen: Normal Pancreas: Normal Adrenal glands: The adrenal glands are normal. Gallbladder: Not visualized. Kidneys: No masses are evident. No hydronephrosis is present. No cysts are present. Delayed images were obtained through the kidneys, which remain unremarkable. Aorta: Normal Inferior vena cava: Normal. CT PELVIS: There is a subtle left paramedian anterior abdominal wall hernia above the level of the um bilicus and contains mesenteric fat. The transverse colon is adjacent but does not appear to be herni ated into this hernia. This was present previously. Loops of bowel within the abdomen and pelvis are normal. There are loops of bowel which are incom pletely distended or lack oral contrast limiting their evaluation. Appendix: The appendix is not clearly identified. No inflammatory changes or dilated tubular structur es are evident in the right lower quadrant. Note is made of a couple of diverticuli within this regio n. Urinary bladder: Normal. Genitourinary structures: Uterus and ovaries are not identified. Adnexal regions are clear. Osseous structures: No suspicious lytic or sclerotic lesions. IMPRESSIONS: 1. Fat-containing small anterior abdominal wall hernia in periumbilical region without bowel loops o f bowel. 2. Small hiatal hernia with the postsurgical stomach. 3. Very mild diverticulosis without acute diverticulitis.
== END | disposition home or self-care (01) ==
LOC: RADCTMAIN 16:47
PROVIDERS: ATTEND Surgery
DX: K57.30 Diverticulosis of large intestine without perforation or abscess without bleeding (principal); K42.9 Umbilical hernia without obstruction or gangrene; K44.9 Diaphragmatic hernia without obstruction or gangrene; Z98.890 Other specified postprocedural states
CPT/HCPCS: 82565; 84520; 74177; 36415; Q9967

== ENCOUNTER → 2018-03-04 | Outpatient (CLI) | payer MEDICARE ==
[2018-03-04 13:05] LABS: Basophils # (A) 0.1 k/uL (0-0.2); Basophils % (A) 1 %; Eosinophils # (A) 0.2 k/uL (0-0.7); Eosinophils % (A) 2 %; HCT 44.8 % (34.0-46.0); HGB 14.7 gm/dL (11.4-16.0); Lymphocytes # (A) 2.5 k/uL (1.0-4.8); Lymphocytes % (A) 31 %; MCH 29.1 pg (25.0-35.0); MCHC 32.9 g/dL (31.0-37.0); MCV 88.6 fL (80.0-100.0); Mean Platelet Volume 6.7; Monocytes # (A) 0.5 k/uL (0-1.0); Monocytes % (A) 7 %; Neutrophils # (A) 4.6 k/uL (1.3-7.7); Neutrophils % (A) 57 %; Platelet Count 239 k/uL (150-450); RBC 5.06 m/uL (3.80-5.40); RDW 13.7 % (11.5-15.5); WBC 8.1 k/uL (3.8-10.6)
== END | disposition home or self-care (01) ==
LOC: LABPAT 11:49
PROVIDERS: ATTEND Surgery
DX: Z01.812 Encounter for preprocedural laboratory examination (principal); K43.2 Incisional hernia without obstruction or gangrene; F17.200 Nicotine dependence, unspecified, uncomplicated; D64.9 Anemia, unspecified
CPT/HCPCS: 36415; 85025; 93005

== ENCOUNTER 2018-03-06 08:45 | Inpatient (IN) | payer MEDICARE ==
[2018-03-01 14:41] VITALS: BMI 31.2
[~2018-03-06 08:45] MED LIST: DEXAMETHASONE SOD PHOSPHATE 10 MG/ML 1 ML VIAL IV ONE; HEPARIN SODIUM,PORCINE 5,000 UNIT/ML 1 ML VIAL SQ ONE; LIDOCAINE 1% 20 ML VIAL (10MG/ML) FOR IV START INTRADERMA PRN; MIDAZOLAM 2 MG/2 ML VIAL IV PRN; SCOPOLAMINE 1.5MG/72HR PATCH TRANSDERM ONE; fentaNYL (PF) 50 MCG/ML 2 ML AMP IV PRN
[2018-03-06 12:13] LABS: Glucose,Whole Blood 308 mg/dL (75-99)
[2018-03-06] MEDS ORDERED: INSULIN ASPART 100 UNIT/ML 1 ML 10 ML VIAL SQ ONE ×2 (12:30→14:38)
--- NOTE | 2018-03-06 12:32 | P.GSHP ---
History of Present Illness H&P Date: 03/06/18 Chief Complaint: Incisional hernia This is a 62-year-old female who presents today for laparoscopic robotic- assisted repair of incisional hernia. Patient developed an incisional hernia near the midline related to her previous exploratory laparotomy. Past Medical History Past Medical History: Atrial Fibrillation, Asthma, Cancer, Chest Pain / Angina, Heart Failure, COPD, Diabetes Mellitus, Fibromyalgia, GERD/Reflux, Hyperlipidemia, Hypertension, Osteoarthritis (OA), Pneumonia, Rheumatoid Arthritis (RA), Seizure Disorder, Sleep Apnea/CPAP/BIPAP Additional Past Medical History / Comment(s): mult TIA-no effects, last seizure 1 yr ago, migraines, irregular heartbeat, varicose veins, no cpap used, oxygen PRN, hx ulcer, IBS, gout, UTI's, ovarian cancer, diverticulitis History of Any Multi-Drug Resistant Organisms: None Reported Past Surgical History: Appendectomy, Bariatric Surgery, Cholecystectomy, Hernia Repair, Hysterectomy, Joint Replacement, Orthopedic Surgery Additional Past Surgical History / Comment(s): lap band/later removed, gastric sleeve, colon resection for diverticulitis, rt knee replacement, "stent in nose- from fx nose", rt thumb- tendon surgery, Past Anesthesia/Blood Transfusion Reactions: Previous Problems w/ Anesthesia Additional Past Anesthesia/Blood Transfusion Reaction / Comment(s): spray used to numb throat-had anaphylaxis(does not know name). slow to wake up Smoking Status: Never smoker - Past Family History Father Family Medical History: Cancer Additional Family Medical History / Comment(s): . Mother Family Medical History: Coronary Artery Disease (CAD), Dementia, Diabetes Mellitus, Thyroid Disorder Additional Family Medical History / Comment(s): diverticulitis, Sister(s) Family Medical History: Cancer Medications and Allergies Home Medications Medication Instructions Recorded Confirmed Type Insulin Glargine [Lantus] 30 unit SQ HS 05/01/16 03/01/18 History Nitroglycerin 0.4 mg SUBLINGUAL Q5M PRN 04/06/17 03/06/18 History Insulin Aspart [NovoLOG 15 unit SQ TID-W/MEALS 04/20/17 03/01/18 History (formulary)] Isosorbide Mononitrate ER [Imdur] 30 mg PO 189904/20/17 03/01/18 History Simvastatin [Zocor] 40 mg PO 1900 04/20/17 03/01/18 History metFORMIN HCL 1,000 mg PO 0 04/20/17 03/01/18 History Omeprazole 20 mg PO 189903/01/18 03/01/18 History Sertraline [Zoloft] 50 mg PO 189903/01/18 03/01/18 History Vitamin D-3 600 mg PO 0 03/01/18 03/01/18 History Allergies Allergy/AdvReac Type Severity Reaction Status Date / Time ampicillin Allergy Rash/Hives Verified 03/06/18 11:23 codeine Allergy Rash/Hives Verified 03/06/18 11:23 erythromycin base Allergy Rash/Hives Verified 03/06/18 11:23 lorazepam [From Ativan] Allergy Unknown Verified 03/06/18 11:23 Sulfa (Sulfonamide Allergy Rash/Hives Verified 03/06/18 11:23 Antibiotics) Surgical - Exam Vital Signs Temp Pulse Resp BP Pulse Ox 97.1 F L 61 16 153/72 100 03/06/18 11:39 03/06/18 11:39 03/06/18 11:39 03/06/18 11:39 03/06/18 11:39 - General well developed, no distress - Eyes PERRL - ENT normal pinna - Neck no masses - Respiratory normal expansion - Cardiovascular Rhythm: regular - Abdomen Abdomen: soft, non tender Hernia: incisional (5 cm incisional hernia) Results - Labs Abnormal Lab Results - Last 24 Hours (Table) 03/06/18 Range/Units 11:53 POC Glucose (mg/dL) 308 H (75-99) mg/dL Assessment and Plan Assessment: Incisional hernia. We'll perform laparoscopic robotic-assisted repair.
[2018-03-06] MEDS ORDERED: BUPIVACAINE (PF) 0.5% 30 ML VIAL SQ ONE ×2 (12:45→13:30)
[2018-03-06] MEDS: ceFAZolin IN SWFI 2 GM/20 ML SYRINGE IVP ONE ×2 (12:46→13:20)
[2018-03-06] MEDS: LACTATED RINGERS 1,000 ML IV SCH ×2 (13:11→19:16)
[2018-03-06] MEDS ORDERED: ONDANSETRON 4 MG/2 ML VIAL IVP ONE (13:12)
[2018-03-06] MEDS ORDERED: PROPOFOL 10 MG/ML 20 ML VIAL IV ONE (13:14)
[2018-03-06] MEDS ORDERED: SUCCINYLCHOLINE CHLORIDE 100 MG/5 ML SYR IV ONE (13:14)
[2018-03-06] MEDS ORDERED: MIDAZOLAM 2 MG/2 ML VIAL ONE (13:14)
[2018-03-06] MEDS ORDERED: ROCURONIUM BROMIDE 10 MG/ML 10 ML VIAL IV ONE (13:14)
[2018-03-06] MEDS ORDERED: GLYCOPYRROLATE 0.2 MG/ML 2 ML VIAL ONE (13:14)
[2018-03-06] MEDS ORDERED: fentaNYL (PF) 50 MCG/ML 2 ML AMP ONE (13:14)
[2018-03-06] MEDS ORDERED: LIDOCAINE 1% INJ 10MG/ML (20 ML MDV) ONE (13:14)
[2018-03-06] MEDS ORDERED: NEOSTIGMINE 1 MG/ML 10 ML VIAL ONE (13:14)
[2018-03-06] MEDS ORDERED: LABETALOL 5 MG/ML VIAL MDV ONE (13:14)
[2018-03-06 13:24] LABS: Glucose,Whole Blood 288 mg/dL (75-99)
[2018-03-06] MEDS ORDERED: ONDANSETRON 4 MG/2 ML VIAL IVP PRN (14:29)
[2018-03-06] MEDS ORDERED: HYDROcodone/APAP 5-325MG 1 EACH TAB PO PRN (14:29)
[2018-03-06] MEDS ORDERED: METOCLOPRAMIDE 5 MG/ML 2 ML VIAL IVP PRN (14:29)
[2018-03-06] MEDS ORDERED: NALOXONE 0.4 MG/ML 1 ML VIAL IV PRN (14:29)
[2018-03-06] MEDS ORDERED: LACTATED RINGERS 1,000 ML IV ONE (14:29)
--- NOTE | 2018-03-06 14:34 | P.OP ---
Date of Procedure: 03/06/18 Preoperative Diagnosis: Incisional hernia Postoperative Diagnosis: Adhesions Incisional hernia Procedure(s) Performed: Lysis of adhesions Repair of incisional hernia with mesh Anesthesia: DANIELA Surgeon: Douglas Monahan Estimated Blood Loss (ml): 10 Pathology: none sent Condition: stable Disposition: PACU Description of Procedure: The patient's placed on the operating table in supine position. She received general anesthesia. Her abdomen was prepped and draped usual sterile fashion. A skin incision was made in the left upper quadrant and using the optical trocar under direct visualization the peritoneal cavity is entered. The abdomen was insufflated after adequate insufflation the laparoscope was placed back in the perineal cavity. There were extensive adhesions seen. At this point it was decided to convert the procedure to open procedure secondary to the adhesions. The skin was incised over the hernia. Using the cautery subcutaneous tissue divided. The hernia sac was opened. Adhesions were lysed to free the bowel and omentum from the hernia. The fascial defect was then closed using 2-0 Ethibond suture. Next the Prolene mesh was placed over top the repair and secured with the secure strand tacker. A 19-Bhutanese channel drain was then placed over top the mesh and brought through separate stab incision. Barbara's fascia is closed with 0 Vicryl suture. Skin was closed suly. Patient top she will was sent to recovery in stable condition.
[2018-03-06 14:35] LABS: Glucose,Whole Blood 247 mg/dL (75-99)
[2018-03-06] MEDS: HYDROmorphone 0.5 MG/0.5 ML SYRINGE IVP PRN ×3 (14:38→15:13)
[2018-03-06] MEDS: KETOROLAC 30 MG/ML 1 ML VIAL IVP SCH ×2 (16:31→22:09)
[2018-03-06] MEDS: LEVOFLOXACIN 500MG-D5W PMX 500 MG in DEXTROSE/WATER 1 100ML.BAG IVPB SCH (16:33)
[2018-03-06 17:38] LABS: Glucose,Whole Blood 254 mg/dL (75-99)
[2018-03-06] MEDS: INSULIN ASPART 100 UNIT/ML 1 ML 10 ML VIAL SQ SCH ×2 (17:39→21:09)
[2018-03-06] MEDS ORDERED: NON-FORMULARY DRUG (Omeprazole [Omeprazole] 20 MG) PO SCH (19:00)
[2018-03-06] MEDS: ATORVASTATIN 20 MG TAB PO SCH (20:48)
[2018-03-06] MEDS: SERTRALINE 50 MG TAB PO SCH (20:48)
[2018-03-06] MEDS: DOCUSATE 100 MG CAP PO SCH (20:49)
[2018-03-06] MEDS: ISOSORBIDE MONONITRATE ER 30 MG TAB.ER.24H PO SCH (21:06)
[2018-03-06 21:11] LABS: Glucose,Whole Blood 257 mg/dL (75-99)
[2018-03-07] MEDS: KETOROLAC 30 MG/ML 1 ML VIAL IVP SCH ×4 (04:12→21:41)
[2018-03-07 06:50] LABS: Glucose,Whole Blood 183 mg/dL (75-99)
[2018-03-07] MEDS: INSULIN ASPART 100 UNIT/ML 1 ML 10 ML VIAL SQ SCH ×4 (06:54→21:21)
[2018-03-07] MEDS ORDERED: PANTOPRAZOLE 40 MG/10 ML VIAL IV SCH (09:00)
[2018-03-07] MEDS: DOCUSATE 100 MG CAP PO SCH ×2 (09:16→21:24)
[2018-03-07] MEDS: ENOXAPARIN 40 MG/0.4 ML SYRINGE SQ SCH (10:36)
--- NOTE | 2018-03-07 11:59 | P.CONS ---
History of Present Illness - Reason for Consult Consult date: 03/07/18 medical management Requesting physician: Douglas Monahan - Chief Complaint s/p incisional hernia repair - History of Present Illness 62-year-old female who underwent elective repair of an incisional hernia. The patient developed this hernia after she underwent a previous exploratory laparotomy. Dr. Luciano was consulted for medical management. The patient is a history of atrial fibrillation, heart failure, COPD, diabetes mellitus, fibromyalgia, GERD, hyperlipidemia, hypertension, osteoarthritis, seizure disorder, rheumatoid arthritis, sleep apnea without use of a CPAP, and TIA. She also has a history of anxiety, depression, and PTSD. The patient currently denies shortness of breath or cough. Denies chest pain or pressure. Vital signs have been stable. She is afebrile. She is on room air with oxygen saturations greater than 95%. She states she was able to eat a few bites of eggs this morning but they made her nauseous so she stopped eating. She denies chest pain or pressure. Denies shortness of breath. CASTRO drain present with sanguinous drainage present. Patients blood sugars have been elevated and ranging from 183-288. Review of Systems Those systems with pertinent positive or pertinent negative responses have been documented in the HPI Past Medical History Past Medical History: Atrial Fibrillation, Asthma, Cancer, Chest Pain / Angina, Heart Failure, COPD, Diabetes Mellitus, Fibromyalgia, GERD/Reflux, Hyperlipidemia, Hypertension, Osteoarthritis (OA), Pneumonia, Rheumatoid Arthritis (RA), Seizure Disorder, Sleep Apnea/CPAP/BIPAP Additional Past Medical History / Comment(s): mult TIA-no effects, last seizure 1 yr ago, migraines, irregular heartbeat, varicose veins, no cpap used, oxygen PRN, hx ulcer, IBS, gout, UTI's, ovarian cancer, diverticulitis History of Any Multi-Drug Resistant Organisms: None Reported Past Surgical History: Appendectomy, Bariatric Surgery, Cholecystectomy, Hernia Repair, Hysterectomy, Joint Replacement, Orthopedic Surgery Additional Past Surgical History / Comment(s): lap band/later removed, gastric sleeve, colon resection for diverticulitis, rt knee replacement, "stent in nose- from fx nose", rt thumb- tendon surgery, Past Anesthesia/Blood Transfusion Reactions: Previous Problems w/ Anesthesia Additional Past Anesthesia/Blood Transfusion Reaction / Comm: spray used to numb throat-had anaphylaxis(does not know name). slow to wake up Past Psychological History: Anxiety, Depression, PTSD Additional Psychological History / Comment(s): . Smoking Status: Never smoker Past Alcohol Use History: None Reported Past Drug Use History: None Reported - Past Family History Father Family Medical History: Cancer Additional Family Medical History / Comment(s): . Mother Family Medical History: Coronary Artery Disease (CAD), Dementia, Diabetes Mellitus, Thyroid Disorder Additional Family Medical History / Comment(s): diverticulitis, Sister(s) Family Medical History: Cancer Medications and Allergies Home Medications Medication Instructions Recorded Confirmed Type Insulin Glargine [Lantus] 30 unit SQ HS 05/01/16 03/06/18 History Nitroglycerin 0.4 mg SUBLINGUAL Q5M PRN 04/06/17 03/06/18 History Insulin Aspart [NovoLOG 15 unit SQ TID-W/MEALS 04/20/17 03/06/18 History (formulary)] Isosorbide Mononitrate ER [Imdur] 30 mg PO 189904/20/17 03/06/18 History Simvastatin [Zocor] 40 mg PO 0 04/20/17 03/06/18 History metFORMIN HCL 1,000 mg PO 0 04/20/17 03/06/18 History Omeprazole 20 mg PO 1900 03/01/18 03/06/18 History Sertraline [Zoloft] 50 mg PO 0 03/01/18 03/06/18 History Vitamin D-3 600 mg PO 0 03/01/18 03/06/18 History Allergies Allergy/AdvReac Type Severity Reaction Status Date / Time ampicillin Allergy Rash/Hives Verified 03/06/18 16:06 codeine Allergy Rash/Hives Verified 03/06/18 16:06 erythromycin base Allergy Rash/Hives Verified 03/06/18 16:06 lorazepam [From Ativan] Allergy Unknown Verified 03/06/18 16:06 Sulfa (Sulfonamide Allergy Rash/Hives Verified 03/06/18 16:06 Antibiotics) Physical Exam Vitals: Vital Signs Temp Pulse Pulse Resp BP Pulse Ox 03/07/18 07:50 96.7 F L 65 18 139/76 95 03/07/18 03:55 97.6 F 63 16 108/58 94 L 03/06/18 23:45 97.8 F 59 L 16 99/56 98 03/06/18 22:15 55 L 98 03/06/18 20:37 97 03/06/18 19:45 96.9 F L 57 L 16 100/50 97 03/06/18 18:45 53 L 16 125/60 97 03/06/18 17:45 66 16 125/55 97 03/06/18 17:22 60 16 105/62 97 03/06/18 16:44 53 L 16 113/60 96 03/06/18 16:30 55 L 16 109/64 96 03/06/18 16:15 87 16 122/65 96 03/06/18 16:00 96.9 F L 53 L 16 135/76 94 L 03/06/18 15:30 58 L 16 124/65 98 03/06/18 15:15 56 L 16 150/71 98 03/06/18 15:00 56 L 16 141/77 100 03/06/18 14:45 64 16 144/76 100 03/06/18 14:30 61 20 159/78 100 03/06/18 14:23 97.2 F L 100 20 187/99 100 03/06/18 11:39 97.1 F L 61 16 153/72 100 Intake and Output 03/06/18 03/07/18 03/07/18 22:59 06:59 14:59 Intake Total 50 Output Total 120 505 Balance -70 -505 Intake: IV 50 Output: Drainage 20 30 Abdomen 20 30 Urine 100 475 GENERAL: This is a 62-year-old female in no apparent distress at the time of examination. Pleasant and cooperative. HEENT: Right central line noted with bloody drainage that is saturated on dressing. Head is atraumatic, normocephalic. Pupils are equal, round, and reactive to light. Sclerae anicteric. Conjunctivae are clear. Mucus membranes of the mouth are moist. Neck is supple. RESPIRATORY: Clear to ausculation. No wheezes, rales, or rhonchi. No use of accessory muscles. Patient maintaining oxygen saturation greater than 92%. No chest wall tenderness is noted on palpation or with deep breathing. CARDIOVASCULAR: Regular rate and rhythm. S1 and S2 noted. No systolic or diastolic murmur auscultated. No JVD noted. No S3 or S4 noted. GASTROINTESTINAL: Abdominal binder in place. CASTRO drain noted with sanguinous drainage. Surgical dressing clean dry and intact. No drainage noted. Abdomen soft and round. Hypoactive bowel sounds auscultated x 4 quadrant. Mild pain and tenderness noted upon palpation-appropriate to surgical procedure. INTEGUMENTARY: No cyanosis. No jaundice. No rashes noted. No cellulitis noted. EXTREMITIES: 2+ peripheral pulses. No evidence of peripheral edema. No calf tenderness noted. NEUROLOGIC: Cranial nerves II-XII intact. PSYCHIATRIC: Awake, alert, and oriented X 3. Appropriate affect. Intact judgement and insight. Results Labs: Abnormal Lab Results - Last 24 Hours (Table) 03/06/18 03/06/18 03/06/18 Range/Units 11:53 13:07 14:32 POC Glucose (mg/dL) 308 H 288 H 247 H (75-99) mg/dL 03/06/18 03/06/18 03/07/18 Range/Units 17:36 21:03 06:46 POC Glucose (mg/dL) 254 H 257 H 183 H (75-99) mg/dL Assessment and Plan Plan: ASSESSMENT: History of expiratory laparotomy with postoperative development of incisional hernia S/P incisional hernia repair, POD #1 History of COPD, no evidence of acute exacerbation Diabetes mellitus, type II Congestive heart failure, type unknown, no evidence of acute exacerbation Hypertension Hyperlipidemia Osteoarthritis Rheumatoid arthritis Seizure disorder Sleep apnea: Patient does not wear a CPAP History of multiple TIAs History of colon resection due to diverticulitis Generalized anxiety disorder Depression Obesity: BMI 31.2 PLAN: Continue postoperative management per Dr. Monahan Pain control Activity as tolerated Incentive spirometer 10 times an hour while awake Resume home medications NovoLog sliding scale with insulin coverage. Resume long-acting insulin and NovoLog with meals Hold 15 units of novolog with meals if patient is not eating Monitor labs GI/DVT prophylaxis Monitor vital signs and address as appropriate Further recommendations pending patient's course Thank you for this consultation. We will continue to follow along with Destiny during her hospitalization. Nurse practitioner note has been reviewed by physician. Signing provider agrees with the documented findings, assessment, and plan of care.
[2018-03-07 12:03] LABS: Glucose,Whole Blood 170 mg/dL (75-99)
[2018-03-07] MEDS ORDERED: INSULIN ASPART 100 UNIT/ML 1 ML 10 ML VIAL SQ SCH (12:30)
[2018-03-07] MEDS: HYDROmorphone 0.5 MG/0.5 ML SYRINGE IVP PRN (12:36)
[2018-03-07 13:43] LABS: Hemoglobin A1C 12.1 % (4.0-6.0)
[2018-03-07] MEDS: LEVOFLOXACIN 500MG-D5W PMX 500 MG in DEXTROSE/WATER 1 100ML.BAG IVPB SCH (15:10)
--- NOTE | 2018-03-07 15:35 | P.PN ---
Subjective Progress Note Date: 03/07/18 62-year-old female seen sitting up in a chair. states she has been up ambulating to the bathroom and back. Pain medication has been effective for pain control. A CASTRO drain in place serous drainage. states belching but not passing gas no stool urinating no difficulty Patient is postop March 06 repair of incisional hernia with mesh lysis of adhesions for an incisional hernia with placement of a CASTRO drain Objective - Vital Signs Vital signs: Vital Signs Temp 96.7 F L 03/07/18 07:50 Pulse 65 03/07/18 07:50 Resp 18 03/07/18 07:50 BP 139/76 03/07/18 07:50 Pulse Ox 95 03/07/18 07:50 Intake & Output 03/06/18 03/07/18 03/07/18 18:59 06:59 18:59 Intake Total 1000 300 Output Total 30 605 450 Balance 970 -605 -150 Intake: IV 1000 Oral 300 Output: Drainage 20 30 Abdomen 20 30 Urine 575 450 Estimated Blood Loss 10 Other: # Voids 300 - Exam Physical exam 62-year-old female sitting up in a chair pleasant talkative appears in no acute distress Lungs adequate air movement bilaterally Heart S1-S2 audible regular Abdomen surgical dressing sites dry CASTRO drain in place serous drainage few hypoactive bowel tones surgical tenderness appropriate not distended. Passing gas no stool Extremities no edema - Labs Labs: Abnormal Lab Results - Last 24 Hours (Table) 03/06/18 03/06/18 03/07/18 Range/Units 17:36 21:03 06:46 POC Glucose (mg/dL) 254 H 257 H 183 H (75-99) mg/dL Hemoglobin A1c (4.0-6.0) % 03/07/18 03/07/18 Range/Units 07:35 11:56 POC Glucose (mg/dL) 170 H (75-99) mg/dL Hemoglobin A1c 12.1 H (4.0-6.0) % Assessment and Plan Assessment: Impression Status post March 06 robotic-assisted laparoscopic lysis of adhesions repair of incisional hernia with mesh for incisional hernia Incisional hernia near the midline related to a prior exploratory laparotomy History of Lap band removal with a gastric sleeve History of atrial fibrillation History of obstructive sleep apnea with no use of CPAP Plan Continue postop surgical care Pain control Increase activity DVT and GI prophylaxis Use of incentive spirometer Diet as tolerated The above impression and plan of care have been discussed and directed by signing physician. Lola Mckoy nurse practitioner acting as scribe for signing physician.
[2018-03-07 17:01] LABS: Glucose,Whole Blood 231 mg/dL (75-99)
[2018-03-07] MEDS ORDERED: LACTATED RINGERS 1,000 ML IV SCH (18:00)
[2018-03-07 20:56] LABS: Glucose,Whole Blood 162 mg/dL (75-99)
[2018-03-07] MEDS ORDERED: INSULIN DETEMIR 100 UNIT/ML 10 ML VIAL SQ SCH (21:00)
[2018-03-07] MEDS: SERTRALINE 50 MG TAB PO SCH (21:23)
[2018-03-07] MEDS: ISOSORBIDE MONONITRATE ER 30 MG TAB.ER.24H PO SCH (21:23)
[2018-03-07] MEDS: ATORVASTATIN 20 MG TAB PO SCH (21:23)
[2018-03-08] MEDS: KETOROLAC 30 MG/ML 1 ML VIAL IVP SCH ×2 (04:06→09:45)
[2018-03-08] MEDS: INSULIN ASPART 100 UNIT/ML 1 ML 10 ML VIAL SQ SCH (06:53)
[2018-03-08 07:12] LABS: Glucose,Whole Blood 195 mg/dL (75-99)
[2018-03-08] MEDS ORDERED: PANTOPRAZOLE 40 MG TABLET PO SCH (07:30)
[2018-03-08] MEDS ORDERED: LEVOFLOXACIN 500 MG TAB PO SCH (09:00)
--- NOTE | 2018-03-08 09:38 | P.PN ---
Subjective Progress Note Date: 03/08/18 03/07/2018 62-year-old female who underwent elective repair of an incisional hernia. The patient developed this hernia after she underwent a previous exploratory laparotomy. Dr. Luciano was consulted for medical management. The patient is a history of atrial fibrillation, heart failure, COPD, diabetes mellitus, fibromyalgia, GERD, hyperlipidemia, hypertension, osteoarthritis, seizure disorder, rheumatoid arthritis, sleep apnea without use of a CPAP, and TIA. She also has a history of anxiety, depression, and PTSD. The patient currently denies shortness of breath or cough. Denies chest pain or pressure. Vital signs have been stable. She is afebrile. She is on room air with oxygen saturations greater than 95%. She states she was able to eat a few bites of eggs this morning but they made her nauseous so she stopped eating. She denies chest pain or pressure. Denies shortness of breath. CASTRO drain present with sanguinous drainage present. Patients blood sugars have been elevated and ranging from 183-288. 03/08/2018 Patient seen and examined at the bedside in rounds Dr. Luciano. Patient is awake and alert. Patient denies chest pain or pressure. Denies shortness of breath. Patient continues to report nausea. She reports she only had 10 bites of her oatmeal this morning. Her insulin has been held per nursing secondary to her decreased oral intake. Patient's hemoglobin A1c is 12.1. Patient is noncompliant with her diabetic diet. Her insulin regimen is managed by her physician at the [facility]. Patient's vital signs have been stable. She is afebrile. She is on room air with oxygen saturations greater than 92%. Objective - Vital Signs Vital signs: Vital Signs Temp 97.3 F L 03/08/18 00:05 Pulse 69 03/08/18 00:05 Resp 16 03/08/18 00:05 BP 120/60 03/08/18 00:05 Pulse Ox 92 L 03/08/18 00:05 Intake & Output 03/07/18 03/08/18 03/08/18 18:59 06:59 18:59 Intake Total 500 Output Total 475 40 Balance 25 -40 Weight 72.575 kg Intake: Oral 500 Output: Drainage 25 40 Abdomen 25 40 Urine 450 Other: # Voids 300 1 - Exam GENERAL: This is a 62-year-old female in no apparent distress at the time of examination. Pleasant and cooperative. HEENT: Head is atraumatic, normocephalic. Pupils are equal, round, and reactive to light. Sclerae anicteric. Conjunctivae are clear. Mucus membranes of the mouth are moist. Neck is supple. RESPIRATORY: Clear to ausculation. No wheezes, rales, or rhonchi. No use of accessory muscles. Patient maintaining oxygen saturation greater than 92%. No chest wall tenderness is noted on palpation or with deep breathing. CARDIOVASCULAR: Regular rate and rhythm. S1 and S2 noted. No systolic or diastolic murmur auscultated. No JVD noted. No S3 or S4 noted. GASTROINTESTINAL: Abdominal binder in place. CASTRO drain noted with sanguinous drainage. Surgical dressing clean dry and intact. No drainage noted. Abdomen soft and round. Hypoactive bowel sounds auscultated x 4 quadrant. Mild pain and tenderness noted upon palpation-appropriate to surgical procedure. INTEGUMENTARY: No cyanosis. No jaundice. No rashes noted. No cellulitis noted. EXTREMITIES: 2+ peripheral pulses. No evidence of peripheral edema. No calf tenderness noted. NEUROLOGIC: Cranial nerves II-XII intact. PSYCHIATRIC: Awake, alert, and oriented X 3. Appropriate affect. Intact judgement and insight. - Labs Labs: Abnormal Lab Results - Last 24 Hours (Table) 03/07/18 03/07/18 03/07/18 Range/Units 07:35 11:56 16:58 POC Glucose (mg/dL) 170 H 231 H (75-99) mg/dL Hemoglobin A1c 12.1 H (4.0-6.0) % 03/07/18 03/08/18 Range/Units 20:53 06:46 POC Glucose (mg/dL) 162 H 195 H (75-99) mg/dL Hemoglobin A1c (4.0-6.0) % Assessment and Plan Plan: ASSESSMENT: History of expiratory laparotomy with postoperative development of incisional hernia S/P incisional hernia repair, POD #2 History of COPD, no evidence of acute exacerbation Diabetes mellitus, type II, hemoglobin A1c 12% Congestive heart failure, type unknown, no evidence of acute exacerbation Hypertension Hyperlipidemia Osteoarthritis Rheumatoid arthritis Seizure disorder Sleep apnea: Patient does not wear a CPAP History of multiple TIAs History of colon resection due to diverticulitis Generalized anxiety disorder Depression Obesity: BMI 31.2 PLAN: Continue postoperative management per Dr. Monahan Pain control Activity as tolerated Incentive spirometer 10 times an hour while awake NovoLog sliding scale with insulin coverage. Resume long-acting insulin and NovoLog with meals Hold 15 units of novolog with meals if patient is not eating Consult dietitian and health educator secondary to uncontrolled diabetes mellitus with hemoglobin A1c of 12.1% Monitor labs GI/DVT prophylaxis Monitor vital signs and address as appropriate Further recommendations pending patient's course Thank you for this consultation. We will continue to follow along with Destiny during her hospitalization. The patient is cleared for discharge from a medical standpoint when cleared by attending physician Nurse practitioner note has been reviewed by physician. Signing provider agrees with the documented findings, assessment, and plan of care.
[2018-03-08] MEDS: ENOXAPARIN 40 MG/0.4 ML SYRINGE SQ SCH (09:49)
[2018-03-08] MEDS: DOCUSATE 100 MG CAP PO SCH (09:49)
[2018-03-08 10:13] VITALS: BP 152/77; PULSE 64; RESP 18; TEMP 97.9
--- NOTE | 2018-03-08 11:07 | P.DS ---
Providers Date of admission: 03/06/18 14:29 Expected date of discharge: 03/08/18 Attending physician: Douglas Monahan Consults: 03/06/18 14:29 Consult Physician Routine Consulting Provider: Kevyn Luciano Reason/Comments: Medical management Do you want consulting provider notified?: Yes Primary care physician: Kevyn Luciano [facility] Course: This is a 62-year-old female who underwent repair of incisional hernia. Patient did well postoperatively. Please see hospital chart for details. Procedures: Repair of incisional hernia, lysis of adhesions Patient Condition at Discharge: Good Plan - Discharge Summary New Discharge Prescriptions: New Docusate [Colace] 100 mg PO BID #20 capsule HYDROcodone/APAP 7.5-325MG [Flatgap 7.5-325] 1 tab PO Q4H PRN 3 Days #18 tab PRN Reason: Pain Continue Insulin Glargine [Lantus] 30 unit SQ HS Nitroglycerin 0.4 mg SUBLINGUAL Q5M PRN PRN Reason: Chest Pain Insulin Aspart [NovoLOG (formulary)] 15 unit SQ TID-W/MEALS Isosorbide Mononitrate ER [Imdur] 30 mg PO 1900 metFORMIN HCL 1,000 mg PO 1900 Simvastatin [Zocor] 40 mg PO 1900 Sertraline [Zoloft] 50 mg PO 1900 Omeprazole 20 mg PO 1900 Vitamin D-3 600 mg PO 1900 Discharge Medication List Insulin Glargine [Lantus] 30 unit SQ HS 05/01/16 [History] Nitroglycerin 0.4 mg SUBLINGUAL Q5M PRN 04/06/17 [History] Insulin Aspart [NovoLOG (formulary)] 15 unit SQ TID-W/MEALS 04/20/17 [History] Isosorbide Mononitrate ER [Imdur] 30 mg PO 1900 04/20/17 [History] Simvastatin [Zocor] 40 mg PO 1900 04/20/17 [History] metFORMIN HCL 1,000 mg PO 1900 04/20/17 [History] Omeprazole 20 mg PO 1900 03/01/18 [History] Sertraline [Zoloft] 50 mg PO 1900 03/01/18 [History] Vitamin D-3 600 mg PO 1900 03/01/18 [History] Docusate [Colace] 100 mg PO BID #20 capsule 03/08/18 [Rx] HYDROcodone/APAP 7.5-325MG [Flatgap 7.5-325] 1 tab PO Q4H PRN 3 Days #18 tab 03/08 [Rx] Follow up Appointment(s)/Referral(s): Kevyn Luciano DO [Primary Care Provider] - 03/19/18 11:20 am Douglas Monahan MD [STAFF PHYSICIAN] - 03/15/18 1:45 pm Patient Instructions/Handouts: Laparoscopic Hysterectomy (DC), Laparoscopic Hysterectomy (GEN) Discharge Disposition: HOME SELF-CARE
== END 2018-03-08 12:06 | disposition home or self-care (01) | DRG 337 ==
LOC: OR 08:45 → 6PED 14:23 → OR 14:29 → 6PED 14:29
PROVIDERS: ADMIT Surgery; ATTEND Surgery
PROC: 0DNU0ZZ Release Omentum, Open Approach (ICD-10-PCS; principal; 2018-03-06 11:15)
PROC: 0WUF0JZ Supplement Abdominal Wall with Synthetic Substitute, Open Approach (ICD-10-PCS; principal; 2018-03-06 11:15)
PROC: 0DN80ZZ Release Small Intestine, Open Approach (ICD-10-PCS; principal; 2018-03-06 11:15)
DX: K43.2 Incisional hernia without obstruction or gangrene (principal); E11.9 Type 2 diabetes mellitus without complications; E66.9 Obesity, unspecified; E78.5 Hyperlipidemia, unspecified; F32.9 Major depressive disorder, single episode, unspecified; F41.1 Generalized anxiety disorder; F43.10 Post-traumatic stress disorder, unspecified; G40.909 Epilepsy, unspecified, not intractable, without status epilepticus; G47.33 Obstructive sleep apnea (adult) (pediatric); I11.0 Hypertensive heart disease with heart failure; K66.0 Peritoneal adhesions (postprocedural) (postinfection); I48.91 Unspecified atrial fibrillation; I50.9 Heart failure, unspecified; J44.9 Chronic obstructive pulmonary disease, unspecified; K21.9 Gastro-esophageal reflux disease without esophagitis; M06.9 Rheumatoid arthritis, unspecified; M19.90 Unspecified osteoarthritis, unspecified site; M79.7 Fibromyalgia; Z68.31 Body mass index [BMI] 31.0-31.9, adult; Z79.4 Long term (current) use of insulin; Z82.49 Family history of ischemic heart disease and other diseases of the circulatory system; Z83.3 Family history of diabetes mellitus; Z86.73 Personal history of transient ischemic attack (TIA), and cerebral infarction without residual deficits; Z90.49 Acquired absence of other specified parts of digestive tract; Z90.710 Acquired absence of both cervix and uterus; Z91.11 Patient's noncompliance with dietary regimen; Z96.651 Presence of right artificial knee joint; Z98.84 Bariatric surgery status; Z79.899 Other long term (current) drug therapy; Z88.1 Allergy status to other antibiotic agents; Z88.5 Allergy status to narcotic agent; Z88.2 Allergy status to sulfonamides; Z88.8 Allergy status to other drugs, medicaments and biological substances; Z53.31 Laparoscopic surgical procedure converted to open procedure
CPT/HCPCS: 36415; 83036; 85025; 86850; 86900; 86901; 93005

== ENCOUNTER 2018-09-08 20:06 | Emergency (ER) | payer MEDICARE ==
--- NOTE | 2018-09-08 20:28 | ED ---
General Adult HPI - General Chief complaint: Extremity Injury, Upper Stated complaint: Left hand injury Time Seen by Provider: 09/08/18 20:15 Source: patient Mode of arrival: ambulatory Limitations: no limitations - History of Present Illness Initial comments: Patient is a 63 year old female who presents with a CC of left arm and wrist pain after a twisting accident yesterday. she states that someone wanted to show her how some twisted their wrist and during the demonstration, the patient felt a pop in her wrist. patient has pain with wrist movement, and pronation / supination. she has not taken any medications for pain. - Related Data Home Medications Medication Instructions Recorded Confirmed Insulin Glargine [Lantus] 30 unit SQ HS 05/01/16 03/06/18 Nitroglycerin 0.4 mg SUBLINGUAL Q5M PRN 04/06/17 03/06/18 Insulin Aspart [NovoLOG 15 unit SQ TID-W/MEALS 04/20/17 03/06/18 (formulary)] Isosorbide Mononitrate ER [Imdur] 30 mg PO 0 04/20/17 03/06/18 Simvastatin [Zocor] 40 mg PO 1900 04/20/17 03/06/18 metFORMIN HCL 1,000 mg PO 0 04/20/17 03/06/18 Omeprazole 20 mg PO 1900 03/01/18 03/06/18 Sertraline [Zoloft] 50 mg PO 1900 03/01/18 03/06/18 Vitamin D-3 600 mg PO 1900 03/01/18 03/06/18 Previous Rx's Medication Instructions Recorded Docusate [Colace] 100 mg PO BID #20 capsule 03/08/18 HYDROcodone/APAP 7.5-325MG [[place] 1 tab PO Q4H PRN 3 Days #18 tab 03/08/18 7.5-325] Acetaminophen Tab [Tylenol Tab] 1,000 mg PO Q6HR #24 tablet 09/08/18 Ibuprofen [Motrin] 800 mg PO Q6H #12 tab 09/08/18 Allergies Allergy/AdvReac Type Severity Reaction Status Date / Time ampicillin Allergy Rash/Hives Verified 09/08/18 20:14 codeine Allergy Rash/Hives Verified 09/08/18 20:14 erythromycin base Allergy Rash/Hives Verified 09/08/18 20:14 lorazepam [From Ativan] Allergy Unknown Verified 09/08/18 20:14 Sulfa (Sulfonamide Allergy Rash/Hives Verified 09/08/18 20:14 Antibiotics) Review of Systems ROS Statement: Those systems with pertinent positive or pertinent negative responses have been documented in the HPI. ROS Other: All systems not noted in ROS Statement are negative. Musculoskeletal: Reports: arthralgia Past Medical History Past Medical History: Atrial Fibrillation, Asthma, Cancer, Chest Pain / Angina, Heart Failure, COPD, Diabetes Mellitus, Fibromyalgia, GERD/Reflux, Hyperlipidemia, Hypertension, Osteoarthritis (OA), Pneumonia, Rheumatoid Arthritis (RA), Seizure Disorder, Sleep Apnea/CPAP/BIPAP Additional Past Medical History / Comment(s): mult TIA-no effects, last seizure 1 yr ago, migraines, irregular heartbeat, varicose veins, no cpap used, oxygen PRN, hx ulcer, IBS, gout, UTI's, ovarian cancer, diverticulitis History of Any Multi-Drug Resistant Organisms: None Reported Past Surgical History: Appendectomy, Bariatric Surgery, Cholecystectomy, Hernia Repair, Hysterectomy, Joint Replacement, Orthopedic Surgery Additional Past Surgical History / Comment(s): lap band/later removed, gastric sleeve, colon resection for diverticulitis, rt knee replacement, "stent in nose- from fx nose", rt thumb- tendon surgery, Past Anesthesia/Blood Transfusion Reactions: Previous Problems w/ Anesthesia Additional Past Anesthesia/Blood Transfusion Reaction / Comment(s): spray used to numb throat-had anaphylaxis(does not know name). slow to wake up Past Psychological History: Anxiety, Depression, PTSD Smoking Status: Never smoker Past Alcohol Use History: None Reported Past Drug Use History: None Reported - Past Family History Father Family Medical History: Cancer Additional Family Medical History / Comment(s): . Mother Family Medical History: Coronary Artery Disease (CAD), Dementia, Diabetes Mellitus, Thyroid Disorder Additional Family Medical History / Comment(s): diverticulitis, Sister(s) Family Medical History: Cancer General Exam Limitations: no limitations General appearance: alert, in no apparent distress Head exam: Present: atraumatic, normocephalic Eye exam: Present: normal appearance, PERRL ENT exam: Present: normal exam Neck exam: Present: normal inspection Respiratory exam: Present: normal lung sounds bilaterally. Absent: respiratory distress, wheezes Cardiovascular Exam: Present: regular rate, normal rhythm GI/Abdominal exam: Present: soft. Absent: distended, tenderness Rectal exam: Present: deferred Extremities exam: Present: other (decreased ROM left wrist, point tenderness on distal radius and ulna. NV intact ) Back exam: Present: normal inspection Neurological exam: Present: alert, oriented X3, normal gait Psychiatric exam: Present: normal affect, normal mood Skin exam: Present: warm, dry, intact, normal color. Absent: rash Course Vital Signs 09/08/18 20:10 Temperature 98.1 F Pulse Rate 98 Respiratory 18 Rate Blood Pressure 131/80 O2 Sat by Pulse 96 Oximetry Medical Decision Making - Medical Decision Making patient presents with a CC of a left wrist injury. initial VS stable, no acute distress. patient evaluated with xrays. 9:45 PM xrays are unremarkable. patient instructed to follow up with pcp in 1-2 days and to have re-imaging if pain persists for 1 week. she was instructed to use motrin and tylenol for pain. RTED if sx worsen or change. Disposition Clinical Impression: Wrist pain, acute Disposition: HOME SELF-CARE Condition: Good Instructions: Wrist Injury (ED) Is patient prescribed a controlled substance at d/c from ED?: No Referrals: Kevyn Luciano DO [Primary Care Provider] - 1-2 days
--- NOTE | 2018-09-08 20:47 | XR ---
EXAMINATION TYPE: XR forearm LT, XR wrist complete LT DATE OF EXAM: 09/08/2018 CLINICAL HISTORY: Twisting injury yesterday with pain. TECHNIQUE: Two views of the left forearm are obtained. 4 views left wrist are acquired. COMPARISON: None. FINDINGS: There is no acute fracture or dislocation seen in the left radius or ulna. The visualized left elbow joint appears within normal limits. The overlying soft tissue appears within normal limi ts. Images of the left wrist show no acute fracture or dislocation. Radiocarpal joint space narrowing is seen. There is moderate narrowing and spurring at base of first metacarpal. Overlying soft tissue is unremarkable. IMPRESSION: There is no acute fracture or dislocation seen in the left wrist or forearm.
[2018-09-08 21:57] VITALS: BP 135/73; PULSE 76; RESP 16; TEMP 97.7
== END 2018-09-08 22:00 | disposition home or self-care (01) ==
LOC: EC 20:06
DX: M25.532 Pain in left wrist (principal); M79.602 Pain in left arm; E78.5 Hyperlipidemia, unspecified; I11.0 Hypertensive heart disease with heart failure; I50.9 Heart failure, unspecified; E11.9 Type 2 diabetes mellitus without complications; K21.9 Gastro-esophageal reflux disease without esophagitis; M19.90 Unspecified osteoarthritis, unspecified site; F32.9 Major depressive disorder, single episode, unspecified; F41.9 Anxiety disorder, unspecified; F43.10 Post-traumatic stress disorder, unspecified; Z88.0 Allergy status to penicillin; Z88.1 Allergy status to other antibiotic agents; Z88.2 Allergy status to sulfonamides; Z88.5 Allergy status to narcotic agent; Z88.8 Allergy status to other drugs, medicaments and biological substances; Z79.4 Long term (current) use of insulin; Z79.899 Other long term (current) drug therapy; Z96.651 Presence of right artificial knee joint; Z87.19 Personal history of other diseases of the digestive system; Z90.49 Acquired absence of other specified parts of digestive tract; Z85.43 Personal history of malignant neoplasm of ovary; Y04.0XXA Assault by unarmed brawl or fight, initial encounter
CPT/HCPCS: 99283

== ENCOUNTER 2018-09-26 13:32 | Emergency (ER) | payer MEDICARE ==
[2018-09-26 13:38] VITALS: TEMP 97.5
[2018-09-26] MEDS ORDERED: SODIUM CHLORIDE 0.9% 1,000 ML IV STA (14:22)
[2018-09-26] MEDS ORDERED: IOPAMIDOL-300 CONTRAST 30 ML VIAL (ORAL USE) PO PRN (14:22)
[2018-09-26] MEDS ORDERED: ONDANSETRON 4 MG/2 ML VIAL IVP STA (14:22)
--- NOTE | 2018-09-26 14:22 | ED ---
General Adult HPI - General Chief complaint: Abdominal Pain Stated complaint: Stomach pain Source: patient, RN notes reviewed, old records reviewed Mode of arrival: ambulatory Limitations: no limitations - History of Present Illness Initial comments: 63-year-old female patient past medical history including COPD, diabetes, atrial fibrillation, diverticulitis, multiple abdominal surgeries. Past surgical history including bariatric surgery 8 years ago - gastric sleeve, colon resection 8 years ago, cholecystectomy, appendectomy, hysterectomy. Presents to ED with 3 days of nausea vomiting diarrhea and left lower quadrant abdominal pain. Patient describes the pain in her left lower quadrant as a sharp and stabbing pain which is constant. Patient denies any radiation of the pain. Patient reports that when she eats she develops nausea and vomits. Patient reports that she hasn't been able to keep very little food down last 3 days. Patient additionally reports liquid diarrhea the last 3 days, approximately 3-4 times per day. Patient reports that she was seen at [facility] on 08/17 for vaginal itching, was diagnosed with vaginal candiasis. Pt reports that she was seen by her PCP last week for f/u for this issue. Pt additionally complains of minor dysuria. Patient denies chest pain, shortness of breath. Patient denies fever/chills. Patient denies dizziness, syncope or presyncope. Patient states that she is not on blood thinners. Systemic: Pt denies fatigue, myalgia, fever/chills, rash. Pt denies weakness, night sweats, weight loss. Neuro: Pt denies headache, visual disturbances, syncope or pre-syncope. HEENT: Pt denies ocular discharge or irritation, otalgia, rhinorrhea, pharyngitis or notable lymphadenopathy. Cardiopulmonary: Pt denies chest pain, SOB, heart palpitations, dyspnea on exertion. : Pt denies frequency/urgency. Denies new onset urinary or bowel incontinence. MSK: Pt denies myalgia, loss of strength or function in extremities. Neuro: Pt denies new onset weakness, paresthesias. - Related Data Home Medications Medication Instructions Recorded Confirmed Insulin Glargine [Lantus] 30 unit SQ HS 05/01/16 09/26/18 Insulin Aspart [NovoLOG 15 unit SQ TID-W/MEALS 04/20/17 09/26/18 (formulary)] Sertraline [Zoloft] 50 mg PO DAILY@1900 03/01/18 09/26/18 Previous Rx's Medication Instructions Recorded Ondansetron Odt [Zofran ODT] 4 mg PO Q8HR PRN #20 tab 09/26/18 Allergies Allergy/AdvReac Type Severity Reaction Status Date / Time ampicillin Allergy Rash/Hives Verified 09/26/18 14:22 codeine Allergy Rash/Hives Verified 09/26/18 14:22 erythromycin base Allergy Rash/Hives Verified 09/26/18 14:22 lorazepam [From Ativan] Allergy Unknown Verified 09/26/18 14:22 Sulfa (Sulfonamide Allergy Rash/Hives Verified 09/26/18 14:22 Antibiotics) Review of Systems ROS Statement: Those systems with pertinent positive or pertinent negative responses have been documented in the HPI. ROS Other: All systems not noted in ROS Statement are negative. Past Medical History Past Medical History: Atrial Fibrillation, Asthma, Cancer, Chest Pain / Angina, Heart Failure, COPD, Diabetes Mellitus, Fibromyalgia, GERD/Reflux, Hyperlipidemia, Hypertension, Osteoarthritis (OA), Pneumonia, Rheumatoid Arthritis (RA), Seizure Disorder, Sleep Apnea/CPAP/BIPAP Additional Past Medical History / Comment(s): mult TIA-no effects, last seizure 1 yr ago, migraines, irregular heartbeat, varicose veins, no cpap used, oxygen PRN, hx ulcer, IBS, gout, UTI's, ovarian cancer, diverticulitis History of Any Multi-Drug Resistant Organisms: None Reported Past Surgical History: Appendectomy, Bariatric Surgery, Cholecystectomy, Hernia Repair, Hysterectomy, Joint Replacement, Orthopedic Surgery Additional Past Surgical History / Comment(s): lap band/later removed, gastric sleeve, colon resection for diverticulitis, rt knee replacement, "stent in nose- from fx nose", rt thumb- tendon surgery, Past Anesthesia/Blood Transfusion Reactions: Previous Problems w/ Anesthesia Additional Past Anesthesia/Blood Transfusion Reaction / Comment(s): spray used to numb throat-had anaphylaxis(does not know name). slow to wake up Past Psychological History: Anxiety, Depression, PTSD Smoking Status: Never smoker Past Alcohol Use History: None Reported Past Drug Use History: None Reported - Past Family History Father Family Medical History: Cancer Additional Family Medical History / Comment(s): . Mother Family Medical History: Coronary Artery Disease (CAD), Dementia, Diabetes Mellitus, Thyroid Disorder Additional Family Medical History / Comment(s): diverticulitis, Sister(s) Family Medical History: Cancer General Exam - General Exam Comments Initial Comments: Constitutional: NAD, AOX3, Pt has pleasant affect. HEENT: NC/AT, trachea midline, neck supple, no lymphadenopathy. Posterior pharynx non erythematous, without exudates. External ears appear normal, without discharge. Mucous membranes moist. Eyes PERRLA, EOM intact. There is no scleral icterus. No pallor noted. Cardiopulmonary: RRR, no murmurs, rubs or gallops, no JVD noted. Lungs CTAB in anterior and posterior lopez. No peripheral edema. Abdominal exam: Abdomen soft and non-distended. Abdomen mildly tender to palpation in suprapubic region. No ecchymosis, no guarding no rigidity. Pt has palpable scar tisuse in abdomen secondary to multiple abdominal surgeries. Bowel sounds active in LLQ. No hepatosplenomegaly. No ecchymosis Neuro: CN II-XII grossly intact. No nuchal rigidity. MSK: No posterior calf tenderness bilaterally, homans sign negative bilaterally. Posterior tibialis and radial pulse +2 bilaterally. Sensation intact in upper and lower extremities. Full active ROM in upper and lower extremities, 5/5 strength. Limitations: no limitations Course Vital Signs 09/26/18 09/26/18 13:36 18:17 Temperature 97.5 F L 97.5 F L Pulse Rate 65 58 L Respiratory 16 18 Rate Blood Pressure 144/75 144/79 O2 Sat by Pulse 99 98 Oximetry Medical Decision Making - Medical Decision Making 63-year-old female patient past medical history including COPD, diabetes, atrial fibrillation, diverticulitis, multiple abdominal surgeries. Past surgical history including bariatric surgery 8 years ago - gastric sleeve, colon resection 8 years ago, cholecystectomy, appendectomy, hysterectomy. Presents to ED with 3 days of nausea vomiting diarrhea and left lower quadrant abdominal pain. Patient describes the pain in her left lower quadrant as a sharp and stabbing pain which is constant. Patient denies any radiation of the pain. Patient reports that when she eats she develops nausea and vomits. Patient vital signs stable, afebrile. Physical exam displayed abdomen mildly tender to palpation in suprapubic region, no other pathologic findings. Laboratory investigations revealed noncompressive CMP, CBC. Coagulation studies within normal limits. Plasma lactic acid mildly elevated at 2.1. Troponin negative. Amylase lipase within normal limits. UA displayed +3 ketones. EKG displays sinus bradycardia, not concerning for acute pathology or ischemia. Chest x-ray displayed no acute cardiopulmonary process. CT abdomen and pelvis displayed small ventral hernia, small hiatal hernia. Findings consistent with gastroenteritis. Patient improved with IV fluids, Zofran. Patient diagnosed with viral gastroenteritis. Patient prescribed Zofran to use outpatient as needed. Patient to follow up with PCP tomorrow. Patient to return to ED if new signs or symptoms develop or if condition worsens in any way. Case discussed in depth with Dr. Macedo. - Lab Data Result diagrams: 09/26/18 16:02 09/26/18 15:49 Lab Results 09/26/18 09/26/18 09/26/18 Range/Units 15:49 15:49 16:02 WBC 8.3 (3.8-10.6) k/uL RBC 4.86 (3.80-5.40) m/uL Hgb 13.6 (11.4-16.0) gm/dL Hct 44.2 (34.0-46.0) % MCV 90.9 (80.0-100.0) fL MCH 27.9 (25.0-35.0) pg MCHC 30.7 L (31.0-37.0) g/dL RDW 13.2 (11.5-15.5) % Plt Count 258 (150-450) k/uL Neutrophils % 61 % Lymphocytes % 29 % Monocytes % 6 % Eosinophils % 2 % Basophils % 1 % Neutrophils # 5.0 (1.3-7.7) k/uL Lymphocytes # 2.4 (1.0-4.8) k/uL Monocytes # 0.5 (0-1.0) k/uL Eosinophils # 0.1 (0-0.7) k/uL Basophils # 0.1 (0-0.2) k/uL PT (9.0-12.0) sec INR (<1.2) APTT (22.0-30.0) sec Sodium 138 (137-145) mmol/L Potassium 4.6 (3.5-5.1) mmol/L Chloride 104 (98-107) mmol/L Carbon Dioxide 22 (22-30) mmol/L Anion Gap 12 mmol/L BUN 15 (7-17) mg/dL Creatinine 0.64 (0.52-1.04) mg/dL Est GFR (CKD-EPI)AfAm >90 (>60 ml/min/1.73 sqM) Est GFR (CKD-EPI)NonAf >90 (>60 ml/min/1.73 sqM) Glucose 196 H (74-99) mg/dL Lactic Ac Sepsis Rflx Plasma Lactic Acid [place] 2.1 H* (0.7-2.0) mmol/L Calcium 9.5 (8.4-10.2) mg/dL Magnesium 1.9 (1.6-2.3) mg/dL Total Bilirubin 2.0 H (0.2-1.3) mg/dL AST 23 (14-36) U/L ALT 20 (9-52) U/L Alkaline Phosphatase 147 H (38-126) U/L Troponin I (0.000-0.034) ng/mL Total Protein 6.6 (6.3-8.2) g/dL Albumin 3.7 (3.5-5.0) g/dL Amylase 41 (30-110) U/L Lipase 58 (23-300) U/L Urine Color Urine Appearance (Clear) Urine pH (5.0-8.0) Ur Specific [place] (1.001-1.035) Urine Protein (Negative) Urine Glucose (UA) (Negative) Urine Ketones (Negative) Urine Blood (Negative) Urine Nitrite (Negative) Urine Bilirubin (Negative) Urine Urobilinogen (<2.0) mg/dL Ur Leukocyte Esterase (Negative) 09/26/18 09/26/18 09/26/18 Range/Units 16:02 16:02 16:52 WBC (3.8-10.6) k/uL RBC (3.80-5.40) m/uL Hgb (11.4-16.0) gm/dL Hct (34.0-46.0) % MCV (80.0-100.0) fL MCH (25.0-35.0) pg MCHC (31.0-37.0) g/dL RDW (11.5-15.5) % Plt Count (150-450) k/uL Neutrophils % % Lymphocytes % % Monocytes % % Eosinophils % % Basophils % % Neutrophils # (1.3-7.7) k/uL Lymphocytes # (1.0-4.8) k/uL Monocytes # (0-1.0) k/uL Eosinophils # (0-0.7) k/uL Basophils # (0-0.2) k/uL PT 10.0 (9.0-12.0) sec INR 0.9 (<1.2) APTT 23.8 (22.0-30.0) sec Sodium (137-145) mmol/L Potassium (3.5-5.1) mmol/L Chloride (98-107) mmol/L Carbon Dioxide (22-30) mmol/L Anion Gap mmol/L BUN (7-17) mg/dL Creatinine (0.52-1.04) mg/dL Est GFR (CKD-EPI)AfAm (>60 ml/min/1.73 sqM) Est GFR (CKD-EPI)NonAf (>60 ml/min/1.73 sqM) Glucose (74-99) mg/dL Lactic Ac Sepsis Rflx Y Plasma Lactic Acid [place] (0.7-2.0) mmol/L Calcium (8.4-10.2) mg/dL Magnesium (1.6-2.3) mg/dL Total Bilirubin (0.2-1.3) mg/dL AST (14-36) U/L ALT (9-52) U/L Alkaline Phosphatase (38-126) U/L Troponin I <0.012 (0.000-0.034) ng/mL Total Protein (6.3-8.2) g/dL Albumin (3.5-5.0) g/dL Amylase (30-110) U/L Lipase (23-300) U/L Urine Color Urine Appearance (Clear) Urine pH (5.0-8.0) Ur Specific [place] (1.001-1.035) Urine Protein (Negative) Urine Glucose (UA) (Negative) Urine Ketones (Negative) Urine Blood (Negative) Urine Nitrite (Negative) Urine Bilirubin (Negative) Urine Urobilinogen (<2.0) mg/dL Ur Leukocyte Esterase (Negative) 09/26/18 Range/Units 17:28 WBC (3.8-10.6) k/uL RBC (3.80-5.40) m/uL Hgb (11.4-16.0) gm/dL Hct (34.0-46.0) % MCV (80.0-100.0) fL MCH (25.0-35.0) pg MCHC (31.0-37.0) g/dL RDW (11.5-15.5) % Plt Count (150-450) k/uL Neutrophils % % Lymphocytes % % Monocytes % % Eosinophils % % Basophils % % Neutrophils # (1.3-7.7) k/uL Lymphocytes # (1.0-4.8) k/uL Monocytes # (0-1.0) k/uL Eosinophils # (0-0.7) k/uL Basophils # (0-0.2) k/uL PT (9.0-12.0) sec INR (<1.2) APTT (22.0-30.0) sec Sodium (137-145) mmol/L Potassium (3.5-5.1) mmol/L Chloride (98-107) mmol/L Carbon Dioxide (22-30) mmol/L Anion Gap mmol/L BUN (7-17) mg/dL Creatinine (0.52-1.04) mg/dL Est GFR (CKD-EPI)AfAm (>60 ml/min/1.73 sqM) Est GFR (CKD-EPI)NonAf (>60 ml/min/1.73 sqM) Glucose (74-99) mg/dL Lactic Ac Sepsis Rflx Plasma Lactic Acid [place] (0.7-2.0) mmol/L Calcium (8.4-10.2) mg/dL Magnesium (1.6-2.3) mg/dL Total Bilirubin (0.2-1.3) mg/dL AST (14-36) U/L ALT (9-52) U/L Alkaline Phosphatase (38-126) U/L Troponin I (0.000-0.034) ng/mL Total Protein (6.3-8.2) g/dL Albumin (3.5-5.0) g/dL Amylase (30-110) U/L Lipase (23-300) U/L Urine Color Yellow Urine Appearance Clear (Clear) Urine pH 5.5 (5.0-8.0) Ur Specific [place] >1.050 H (1.001-1.035) Urine Protein Trace H (Negative) Urine Glucose (UA) Trace H (Negative) Urine Ketones 3+ H (Negative) Urine Blood Negative (Negative) Urine Nitrite Negative (Negative) Urine Bilirubin Negative (Negative) Urine Urobilinogen <2.0 (<2.0) mg/dL Ur Leukocyte Esterase Negative (Negative) Disposition Clinical Impression: Gastroenteritis Disposition: HOME SELF-CARE Condition: Good Instructions: Gastroenteritis (ED), Acute Nausea and Vomiting (ED) Additional Instructions: Patient to adhere to previously discussed treatment plan and will take medication(s) as directed. Patient to follow up with PCP in 1-2 days. Patient to return to ED if symptoms do not improve. Prescriptions: Ondansetron Odt [Zofran ODT] 4 mg PO Q8HR PRN #20 tab PRN Reason: Nausea Is patient prescribed a controlled substance at d/c from ED?: No Referrals: Kevyn Luciano DO [Primary Care Provider] - 1-2 days Time of Disposition: 18:11
[2018-09-26 16:23] LABS: ALT 20 U/L (9-52); AST 23 U/L (14-36); Albumin 3.7 g/dL (3.5-5.0); Alkaline Phosphatase 147 U/L (38-126); Amylase 41 U/L (30-110); Anion Gap 12 mmol/L; Blood Urea Nitrogen 15 mg/dL (7-17); Calcium 9.5 mg/dL (8.4-10.2); Carbon Dioxide 22 mmol/L (22-30); Chloride 104 mmol/L (98-107); Glucose 196 mg/dL (74-99); Lipase 58 U/L (23-300); Magnesium 1.9 mg/dL (1.6-2.3); Potassium 4.6 mmol/L (3.5-5.1); Sodium 138 mmol/L (137-145); Total Protein 6.6 g/dL (6.3-8.2)
[2018-09-26 16:28] LABS: Basophils # (A) 0.1 k/uL (0-0.2); Basophils % (A) 1 %; Eosinophils # (A) 0.1 k/uL (0-0.7); Eosinophils % (A) 2 %; HCT 44.2 % (34.0-46.0); HGB 13.6 gm/dL (11.4-16.0); Lymphocytes # (A) 2.4 k/uL (1.0-4.8); Lymphocytes % (A) 29 %; MCH 27.9 pg (25.0-35.0); MCHC 30.7 g/dL (31.0-37.0); MCV 90.9 fL (80.0-100.0); Mean Platelet Volume 6.9; Monocytes # (A) 0.5 k/uL (0-1.0); Monocytes % (A) 6 %; Neutrophils % (A) 61 %; Platelet Count 258 k/uL (150-450); RBC 4.86 m/uL (3.80-5.40); RDW 13.2 % (11.5-15.5); WBC 8.3 k/uL (3.8-10.6)
--- NOTE | 2018-09-26 16:39 | XR ---
EXAMINATION TYPE: XR chest 2V DATE OF EXAM: 09/26/2018 COMPARISON: 05/03/2017 HISTORY: Asthma. Short of breath. COPD. TECHNIQUE: Frontal and lateral views of the chest are obtained. FINDINGS: There is no heart failure nor confluent pneumonic infiltrate. Costophrenic angles are mode r. Heart size is normal. Bony thorax is intact. IMPRESSION: No active cardiopulmonary disease. No change.
--- NOTE | 2018-09-26 17:22 | CT ---
EXAMINATION TYPE: CT abdomen pelvis w con DATE OF EXAM: 09/26/2018 COMPARISON: 02/15/2018 HISTORY: Abdominal pain with nausea, vomiting and diarrhea x [address] DLP: 836.1 mGycm Automated exposure control for dose reduction was used. TECHNIQUE: Helical acquisition of images was performed from the lung bases through the pelvis. CONTRAST: Performed without Oral Contrast and with IV Contrast, patient injected with 100 mL of Isovue 300. FINDINGS: There is mild subsegmental atelectasis at the lung bases. There is large hiatal hernia. There are cli ps from bariatric surgery. There is no pericardial effusion. There is no pleural effusion. Liver shows no focal defect. Spleen appears normal. There is no evidenc e of pancreatic mass. There is no adrenal mass. The kidneys show satisfactory contrast opacification. There is no hydroneph rosis. There is no retroperitoneal adenopathy. There is no free fluid in the pelvis. There is previou s surgery at the rectosigmoid colon. There are sigmoid diverticula. There is no sign of diverticuliti s. There are multiple clips from hernia surgery on the anterior abdomen. There is small epigastric ve ntral hernia that contains fat. This measures 2 x 1 cm. There are some loops of small bowel in the mi d abdomen with wall thickening. There is no evidence of a bowel obstruction. There are surgical clips at the cecum. The terminal ileum appears normal. There are mild spondylotic changes in the lumbar sp ine. I see no bony destructive process. There is no evidence of pneumoperitoneum. There is no ascites . Bladder distends smoothly. There is no inguinal hernia. There is no free fluid in the pelvis. IMPRESSION: THERE ARE MULTIPLE JEJUNAL LOOPS OF BOWEL WITH WALL THICKENING THAT IS A CHANGE COMPARED TO OLD EXAM AND COULD RELATE TO GASTROENTERITIS. NO BOWEL OBSTRUCTION. SMALL VENTRAL HERNIA. HIATAL HERNIA. PREVI OUS SURGERY AT THE RECTOSIGMOID JUNCTION WITH APPARENT RESECTION OF THE SIGMOID COLON AND SOME DIVERT ICULA NOTED IN THE DESCENDING COLON.
[2018-09-26 17:39] LABS: INR 0.9 (<1.2); Partial Thromboplastin Time 23.8 sec (22.0-30.0)
[2018-09-26 17:44] LABS: Appearance,Urine Clear (Clear); Bilirubin,Urine Negative (Negative); Blood,Urine Negative (Negative); Color,Urine Yellow; Glucose,Urine (UA) Trace (Negative); Ketones,Urine 3+ (Negative); Leukocyte Esterase,Urine Negative (Negative); Nitrite,Urine Negative (Negative); PH, Urine 5.5 (5.0-8.0); Protein,Urine Trace (Negative); Urobilinogen,Urine <2.0 mg/dL (<2.0)
[2018-09-26 17:48] LABS: Specific Gravity,Urine >1.050 (1.001-1.035)
[2018-09-26 18:25] VITALS: BP 144/79; PULSE 58; RESP 18
--- NOTE | 2018-09-26 23:24 | ED ---
Medical Decision Making - Lab Data Result diagrams: 09/26/18 16:02 09/26/18 15:49 Lab Results 09/26/18 09/26/18 09/26/18 Range/Units 15:49 15:49 16:02 WBC 8.3 (3.8-10.6) k/uL RBC 4.86 (3.80-5.40) m/uL Hgb 13.6 (11.4-16.0) gm/dL Hct 44.2 (34.0-46.0) % MCV 90.9 (80.0-100.0) fL MCH 27.9 (25.0-35.0) pg MCHC 30.7 L (31.0-37.0) g/dL RDW 13.2 (11.5-15.5) % Plt Count 258 (150-450) k/uL Neutrophils % 61 % Lymphocytes % 29 % Monocytes % 6 % Eosinophils % 2 % Basophils % 1 % Neutrophils # 5.0 (1.3-7.7) k/uL Lymphocytes # 2.4 (1.0-4.8) k/uL Monocytes # 0.5 (0-1.0) k/uL Eosinophils # 0.1 (0-0.7) k/uL Basophils # 0.1 (0-0.2) k/uL PT (9.0-12.0) sec INR (<1.2) APTT (22.0-30.0) sec Sodium 138 (137-145) mmol/L Potassium 4.6 (3.5-5.1) mmol/L Chloride 104 (98-107) mmol/L Carbon Dioxide 22 (22-30) mmol/L Anion Gap 12 mmol/L BUN 15 (7-17) mg/dL Creatinine 0.64 (0.52-1.04) mg/dL Est GFR (CKD-EPI)AfAm >90 (>60 ml/min/1.73 sqM) Est GFR (CKD-EPI)NonAf >90 (>60 ml/min/1.73 sqM) Glucose 196 H (74-99) mg/dL Lactic Ac Sepsis Rflx Plasma Lactic Acid Tawanda 2.1 H* (0.7-2.0) mmol/L Calcium 9.5 (8.4-10.2) mg/dL Magnesium 1.9 (1.6-2.3) mg/dL Total Bilirubin 2.0 H (0.2-1.3) mg/dL AST 23 (14-36) U/L ALT 20 (9-52) U/L Alkaline Phosphatase 147 H (38-126) U/L Troponin I (0.000-0.034) ng/mL Total Protein 6.6 (6.3-8.2) g/dL Albumin 3.7 (3.5-5.0) g/dL Amylase 41 (30-110) U/L Lipase 58 (23-300) U/L Urine Color Urine Appearance (Clear) Urine pH (5.0-8.0) Ur Specific [place] (1.001-1.035) Urine Protein (Negative) Urine Glucose (UA) (Negative) Urine Ketones (Negative) Urine Blood (Negative) Urine Nitrite (Negative) Urine Bilirubin (Negative) Urine Urobilinogen (<2.0) mg/dL Ur Leukocyte Esterase (Negative) 09/26/18 09/26/18 09/26/18 Range/Units 16:02 16:02 16:52 WBC (3.8-10.6) k/uL RBC (3.80-5.40) m/uL Hgb (11.4-16.0) gm/dL Hct (34.0-46.0) % MCV (80.0-100.0) fL MCH (25.0-35.0) pg MCHC (31.0-37.0) g/dL RDW (11.5-15.5) % Plt Count (150-450) k/uL Neutrophils % % Lymphocytes % % Monocytes % % Eosinophils % % Basophils % % Neutrophils # (1.3-7.7) k/uL Lymphocytes # (1.0-4.8) k/uL Monocytes # (0-1.0) k/uL Eosinophils # (0-0.7) k/uL Basophils # (0-0.2) k/uL PT 10.0 (9.0-12.0) sec INR 0.9 (<1.2) APTT 23.8 (22.0-30.0) sec Sodium (137-145) mmol/L Potassium (3.5-5.1) mmol/L Chloride (98-107) mmol/L Carbon Dioxide (22-30) mmol/L Anion Gap mmol/L BUN (7-17) mg/dL Creatinine (0.52-1.04) mg/dL Est GFR (CKD-EPI)AfAm (>60 ml/min/1.73 sqM) Est GFR (CKD-EPI)NonAf (>60 ml/min/1.73 sqM) Glucose (74-99) mg/dL Lactic Ac Sepsis Rflx Y Plasma Lactic Acid Tawanda (0.7-2.0) mmol/L Calcium (8.4-10.2) mg/dL Magnesium (1.6-2.3) mg/dL Total Bilirubin (0.2-1.3) mg/dL AST (14-36) U/L ALT (9-52) U/L Alkaline Phosphatase (38-126) U/L Troponin I <0.012 (0.000-0.034) ng/mL Total Protein (6.3-8.2) g/dL Albumin (3.5-5.0) g/dL Amylase (30-110) U/L Lipase (23-300) U/L Urine Color Urine Appearance (Clear) Urine pH (5.0-8.0) Ur Specific [place] (1.001-1.035) Urine Protein (Negative) Urine Glucose (UA) (Negative) Urine Ketones (Negative) Urine Blood (Negative) Urine Nitrite (Negative) Urine Bilirubin (Negative) Urine Urobilinogen (<2.0) mg/dL Ur Leukocyte Esterase (Negative) 09/26/18 Range/Units 17:28 WBC (3.8-10.6) k/uL RBC (3.80-5.40) m/uL Hgb (11.4-16.0) gm/dL Hct (34.0-46.0) % MCV (80.0-100.0) fL MCH (25.0-35.0) pg MCHC (31.0-37.0) g/dL RDW (11.5-15.5) % Plt Count (150-450) k/uL Neutrophils % % Lymphocytes % % Monocytes % % Eosinophils % % Basophils % % Neutrophils # (1.3-7.7) k/uL Lymphocytes # (1.0-4.8) k/uL Monocytes # (0-1.0) k/uL Eosinophils # (0-0.7) k/uL Basophils # (0-0.2) k/uL PT (9.0-12.0) sec INR (<1.2) APTT (22.0-30.0) sec Sodium (137-145) mmol/L Potassium (3.5-5.1) mmol/L Chloride (98-107) mmol/L Carbon Dioxide (22-30) mmol/L Anion Gap mmol/L BUN (7-17) mg/dL Creatinine (0.52-1.04) mg/dL Est GFR (CKD-EPI)AfAm (>60 ml/min/1.73 sqM) Est GFR (CKD-EPI)NonAf (>60 ml/min/1.73 sqM) Glucose (74-99) mg/dL Lactic Ac Sepsis Rflx Plasma Lactic Acid Tawanda (0.7-2.0) mmol/L Calcium (8.4-10.2) mg/dL Magnesium (1.6-2.3) mg/dL Total Bilirubin (0.2-1.3) mg/dL AST (14-36) U/L ALT (9-52) U/L Alkaline Phosphatase (38-126) U/L Troponin I (0.000-0.034) ng/mL Total Protein (6.3-8.2) g/dL Albumin (3.5-5.0) g/dL Amylase (30-110) U/L Lipase (23-300) U/L Urine Color Yellow Urine Appearance Clear (Clear) Urine pH 5.5 (5.0-8.0) Ur Specific [place] >1.050 H (1.001-1.035) Urine Protein Trace H (Negative) Urine Glucose (UA) Trace H (Negative) Urine Ketones 3+ H (Negative) Urine Blood Negative (Negative) Urine Nitrite Negative (Negative) Urine Bilirubin Negative (Negative) Urine Urobilinogen <2.0 (<2.0) mg/dL Ur Leukocyte Esterase Negative (Negative) - EKG Data -: EKG Interpreted by Me (and dr maldonado) EKG Comments: ventricular rate 53, appears well 156, QRS 74, QT/QTc 436 is 427. Sinus bradycardia, otherwise normal EKG. No concerns for acute ischemia. Disposition Clinical Impression: Gastroenteritis Disposition: HOME SELF-CARE Condition: Good Instructions: Gastroenteritis (ED), Acute Nausea and Vomiting (ED) Additional Instructions: Patient to adhere to previously discussed treatment plan and will take medication(s) as directed. Patient to follow up with PCP in 1-2 days. Patient to return to ED if symptoms do not improve. Prescriptions: Ondansetron Odt [Zofran ODT] 4 mg PO Q8HR PRN #20 tab PRN Reason: Nausea Is patient prescribed a controlled substance at d/c from ED?: No Referrals: Kevyn Luciano DO [Primary Care Provider] - 1-2 days
== END 2018-09-26 18:18 | disposition home or self-care (01) ==
LOC: EC 13:32
DX: A08.4 Viral intestinal infection, unspecified (principal); K43.9 Ventral hernia without obstruction or gangrene; E11.9 Type 2 diabetes mellitus without complications; R00.1 Bradycardia, unspecified; F32.9 Major depressive disorder, single episode, unspecified; F41.9 Anxiety disorder, unspecified; F43.10 Post-traumatic stress disorder, unspecified; M19.90 Unspecified osteoarthritis, unspecified site; G47.30 Sleep apnea, unspecified; Z79.4 Long term (current) use of insulin; Z79.899 Other long term (current) drug therapy; Z88.1 Allergy status to other antibiotic agents; Z88.2 Allergy status to sulfonamides; Z88.5 Allergy status to narcotic agent; Z88.8 Allergy status to other drugs, medicaments and biological substances; Z98.84 Bariatric surgery status; Z90.49 Acquired absence of other specified parts of digestive tract; Z90.89 Acquired absence of other organs; Z96.651 Presence of right artificial knee joint; Z85.43 Personal history of malignant neoplasm of ovary; Z86.73 Personal history of transient ischemic attack (TIA), and cerebral infarction without residual deficits
CPT/HCPCS: 36415; 93005; 80053; 82150; 83605; 83690; 83735; 84484; 85025; 85610; 85730; 81003; 87040; 71046; 74177; 99285; 96374; 96361 ×2; J2405; Q9967

== ENCOUNTER 2019-01-24 16:41 | Inpatient (IN) | payer MEDICARE ==
[2019-01-24] MEDS ORDERED: ASPIRIN 81 MG PO STA (16:54)
[2019-01-24] MEDS ORDERED: NITROGLYCERIN SL TABS 0.4 MG TAB SUBLINGUAL STA (17:05)
[2019-01-24 17:11] LABS: Basophils # (A) 0.1 k/uL (0-0.2); Basophils % (A) 1 %; Eosinophils # (A) 0.2 k/uL (0-0.7); Eosinophils % (A) 2 %; HCT 41.5 % (34.0-46.0); HGB 13.6 gm/dL (11.4-16.0); Lymphocytes # (A) 3.1 k/uL (1.0-4.8); Lymphocytes % (A) 33 %; MCH 28.8 pg (25.0-35.0); MCHC 32.7 g/dL (31.0-37.0); MCV 87.9 fL (80.0-100.0); Mean Platelet Volume 7.5; Monocytes # (A) 0.5 k/uL (0-1.0); Monocytes % (A) 5 %; Neutrophils # (A) 5.4 k/uL (1.3-7.7); Neutrophils % (A) 57 %; Platelet Count 296 k/uL (150-450); RBC 4.72 m/uL (3.80-5.40); RDW 14.1 % (11.5-15.5); WBC 9.5 k/uL (3.8-10.6)
[2019-01-24 17:15] LABS: INR 0.9 (<1.2); Partial Thromboplastin Time 24.6 sec (22.0-30.0); Prothrombin Time 9.8 sec (9.0-12.0)
[2019-01-24 17:20] LABS: ALT 28 U/L (9-52); AST 30 U/L (14-36); Albumin 3.8 g/dL (3.5-5.0); Alkaline Phosphatase 188 U/L (38-126); Anion Gap 8 mmol/L; Blood Urea Nitrogen 11 mg/dL (7-17); Calcium 9.5 mg/dL (8.4-10.2); Carbon Dioxide 26 mmol/L (22-30); Chloride 106 mmol/L (98-107); Glucose 167 mg/dL (74-99); Magnesium 1.9 mg/dL (1.6-2.3); Potassium 3.7 mmol/L (3.5-5.1); Sodium 140 mmol/L (137-145); Total Bilirubin 0.7 mg/dL (0.2-1.3); Total Protein 6.9 g/dL (6.3-8.2)
--- NOTE | 2019-01-24 17:37 | XR ---
EXAMINATION TYPE: XR chest 2V DATE OF EXAM: 01/24/2019 COMPARISON: Chest x-ray September 26, 2018 HISTORY: Chest pain. TECHNIQUE: Frontal and lateral views of the chest are obtained. FINDINGS: Overlying EKG leads are present. There is chronic parenchymal change without suspicious fo leena air space opacity, pleural effusion, or pneumothorax seen. The cardiac silhouette size is stable and upper limits of normal. The osseous structures are intact. IMPRESSION: No acute cardiopulmonary process. No significant change from prior.
--- NOTE | 2019-01-24 17:55 | ED ---
Chest Pain HPI - General Chief Complaint: Chest Pain Stated Complaint: CHEST PAIN Time Seen by Provider: 01/24/19 16:51 Source: patient, RN notes reviewed Mode of arrival: ambulatory Limitations: no limitations - History of Present Illness Initial Comments: 63-year-old female presents emergency Department with chief complaint of chest pain. Patient states it started earlier this morning but has progressed over the last hour or so. Patient did centralized pain that radiates slightly. Patient has had prior cardiac disease. Patient states she sees a chief specialist leed at this time. Patient has a history of hypertension, hyperlipidemia, diabetes. Patient denies any associated shortness of breath. This slight nausea no vomiting no diarrhea no constipation no URI symptoms - Related Data Home Medications Medication Instructions Recorded Confirmed Insulin Glargine [Lantus] 30 unit SQ HS@1900 05/01/16 01/24/19 INSULIN ASPART (NovoLOG) [NovoLOG 15 unit SQ AC-TID 04/20/17 01/24/19 (formulary)] Sertraline [Zoloft] 50 mg PO HS@1900 03/01/18 01/24/19 Isosorbide Mononitrate ER [Imdur] 30 mg PO HS@1900 01/24/19 01/24/19 Nitroglycerin Sl Tabs [Nitrostat] 0.4 mg SUBLINGUAL Q5M PRN 01/24/19 01/24/19 Simvastatin [Zocor] 10 mg PO HS@1900 01/24/19 01/24/19 Allergies Allergy/AdvReac Type Severity Reaction Status Date / Time ampicillin Allergy Rash/Hives Verified 01/24/19 17:10 codeine Allergy Rash/Hives Verified 01/24/19 17:10 erythromycin base Allergy Rash/Hives Verified 01/24/19 17:10 lorazepam [From Ativan] Allergy Unknown Verified 01/24/19 17:10 Sulfa (Sulfonamide Allergy Rash/Hives Verified 01/24/19 17:10 Antibiotics) Review of Systems ROS Statement: Those systems with pertinent positive or pertinent negative responses have been documented in the HPI. ROS Other: All systems not noted in ROS Statement are negative. EKG Findings - EKG Comments: EKG Findings:: EKG performed at 16:53 sinus bradycardia rate 51. 166 QRS 80 QT/QTC 4:30/396 Past Medical History Past Medical History: Atrial Fibrillation, Asthma, Cancer, Chest Pain / Angina, Heart Failure, COPD, Diabetes Mellitus, Fibromyalgia, GERD/Reflux, Hyperlipidemia, Hypertension, Osteoarthritis (OA), Pneumonia, Rheumatoid Arthritis (RA), Seizure Disorder, Sleep Apnea/CPAP/BIPAP Additional Past Medical History / Comment(s): mult TIA-no effects, last seizure 1 yr ago, migraines, irregular heartbeat, varicose veins, no cpap used, oxygen PRN, hx ulcer, IBS, gout, UTI's, ovarian cancer, diverticulitis History of Any Multi-Drug Resistant Organisms: None Reported Past Surgical History: Appendectomy, Bariatric Surgery, Cholecystectomy, Hernia Repair, Hysterectomy, Joint Replacement, Orthopedic Surgery Additional Past Surgical History / Comment(s): lap band/later removed, gastric sleeve, colon resection for diverticulitis, rt knee replacement, "stent in nose- from fx nose", rt thumb- tendon surgery, Past Anesthesia/Blood Transfusion Reactions: Previous Problems w/ Anesthesia Additional Past Anesthesia/Blood Transfusion Reaction / Comment(s): spray used to numb throat-had anaphylaxis(does not know name). slow to wake up Past Psychological History: Anxiety, Depression, PTSD Smoking Status: Never smoker Past Alcohol Use History: None Reported Past Drug Use History: None Reported - Past Family History Father Family Medical History: Cancer Additional Family Medical History / Comment(s): . Mother Family Medical History: Coronary Artery Disease (CAD), Dementia, Diabetes Mellitus, Thyroid Disorder Additional Family Medical History / Comment(s): diverticulitis, Sister(s) Family Medical History: Cancer General Exam Limitations: no limitations General appearance: alert, in no apparent distress Head exam: Present: atraumatic, normocephalic, normal inspection Eye exam: Present: normal appearance, PERRL, EOMI. Absent: scleral icterus, conjunctival injection, periorbital swelling ENT exam: Present: normal exam, normal oropharynx, mucous membranes moist Neck exam: Present: normal inspection, full ROM. Absent: tenderness, meningismus, lymphadenopathy Respiratory exam: Present: normal lung sounds bilaterally. Absent: respiratory distress, wheezes, rales, rhonchi, stridor Cardiovascular Exam: Present: regular rate, normal rhythm, normal heart sounds. Absent: systolic murmur, diastolic murmur, rubs, gallop, clicks Neurological exam: Present: alert, oriented X3, CN II-XII intact Skin exam: Present: warm, dry, intact, normal color. 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 Patient will be admitted for chest pain obvious as she has multiple risk factors. EKG does not show any acute abnormality's. Disposition Clinical Impression: Chest pain Disposition: ADMITTED IP TO THIS HOSP Condition: Stable Referrals: Kevyn Luciano DO [Primary Care Provider] - 1-2 days
[2019-01-24] MEDS ORDERED: HEPARIN SODIUM,PORCINE 5,000 UNIT/ML 1 ML VIAL IV ONE (18:07)
[2019-01-24] MEDS ORDERED: NITROGLYCERIN SL TABS 0.4 MG TAB SUBLINGUAL PRN (18:07)
[2019-01-24] MEDS ORDERED: HEPARIN SOD,PORK IN 0.45% NACL 25,000 UNIT in 0.45% NACL 1 250ML.BAG IV SCH (18:15)
[2019-01-24] MEDS ORDERED: HEPARIN SODIUM,PORCINE 5,000 UNIT/ML 1 ML VIAL IV PRN (23:30)
[2019-01-24 23:33] LABS: Glucose,Whole Blood 69 mg/dL (75-99)
[2019-01-24] MEDS: INSULIN ASPART (NovoLOG) 100 UNIT/ML VIAL SQ SCH (23:53)
[2019-01-24] MEDS: SERTRALINE 50 MG TAB PO SCH (23:53)
[2019-01-24] MEDS: ATORVASTATIN 10 MG TAB PO SCH (23:53)
[2019-01-24] MEDS: ISOSORBIDE MONONITRATE ER 30 MG TAB.ER.24H PO SCH (23:53)
[2019-01-25 06:02] LABS: Mean Platelet Volume 7.6; Platelet Count 250 k/uL (150-450)
[2019-01-25 06:17] LABS: Cholesterol 117 mg/dL (<200); HDL Cholesterol 46 mg/dL (40-60); LDL Cholesterol,Calculated 49 mg/dL (0-99); Triglycerides 110 mg/dL (<150)
[2019-01-25 06:36] LABS: Glucose,Whole Blood 111 mg/dL (75-99)
--- NOTE | 2019-01-25 07:51 | P.CRDCN ---
History of Present Illness Consult date: 01/25/19 Chief complaint: Chest pain/dizziness and lightheadedness History of present illness: This is a pleasant 63-year-old female patient who follows was Dr. Londono in the office on regular basis with a past medical history significant for diabet es, hypertension, and dyslipidemia, presented to the emergency room complaining of chest discomfort. She described the discomfort as a sharp kind of discomfort, in the mid of the chest, without any radiation, and without any associated symptoms. Beside that, she has been experiencing intermittent episodes of dizziness and lightheadedness. As a matter of fact she was admitted to the hospital in 2017 was dizziness and lightheadedness and presyncope and she underwent a heart catheterization at that point and that revealed normal coronaries. She has been bradycardic during her hospital stay. She has been in the upper 40s. She stated that she was told that she might need to have a pacemaker in the past but that never done. EKG showed sinus bradycardia. The cardiac enzymes were checked and came in to be unremarkable. The chest x-ray showed no acute abnormalities. Past Medical History Past Medical History: Atrial Fibrillation, Asthma, Cancer, Chest Pain / Angina, Heart Failure, COPD, Diabetes Mellitus, Fibromyalgia, GERD/Reflux, Hyperlipidemi a, Hypertension, Osteoarthritis (OA), Pneumonia, Rheumatoid Arthritis (RA), Seizure Disorder, Sleep Apnea/CPAP/BIPAP Additional Past Medical History / Comment(s): mult TIA-no effects, last seizure 1 yr ago, migraines, irregular heartbeat, varicose veins, no cpap used, oxygen PRN for migraines, hx ulcer, IBS, gout, UTI's, ovarian cancer, diverticulitis History of Any Multi-Drug Resistant Organisms: None Reported Past Surgical History: Appendectomy, Bariatric Surgery, Cholecystectomy, Hernia Repair, Hysterectomy, Joint Replacement, Orthopedic Surgery Additional Past Surgical History / Comment(s): lap band/later removed, gastric sleeve, colon resection for diverticulitis, rt knee replacement, "stent in nose- from fx nose", rt thumb- tendon surgery, Past Anesthesia/Blood Transfusion Reactions: Previous Problems w/ Anesthesia Additional Past Anesthesia/Blood Transfusion Reaction / Comment(s): spray used to numb throat-had anaphylaxis(does not know name). slow to wake up Past Psychological History: Anxiety, Depression, PTSD Additional Psychological History / Comment(s): . Smoking Status: Never smoker Past Alcohol Use History: None Reported Past Drug Use History: None Reported - Past Family History Father Family Medical History: Cancer Additional Family Medical History / Comment(s): . Mother Family Medical History: Coronary Artery Disease (CAD), Dementia, Diabetes Mellitus, Thyroid Disorder Additional Family Medical History / Comment(s): diverticulitis, Sister(s) Family Medical History: Cancer Medications and Allergies Home Medications Medication Instructions Recorded Confirmed Type Insulin Glargine [Lantus] 30 unit SQ HS@1900 05/01/16 01/24/19 History INSULIN ASPART (NovoLOG) [NovoLOG 15 unit SQ AC-TID 04/20/17 01/24/19 History (formulary)] Sertraline [Zoloft] 50 mg PO HS@0 03/01/18 01/24/19 History Isosorbide Mononitrate ER [Imdur] 30 mg PO HS@0 01/24/19 01/24/19 History Nitroglycerin Sl Tabs [Nitrostat] 0.4 mg SUBLINGUAL Q5M PRN 01/24/19 01/24/19 History Simvastatin [Zocor] 10 mg PO HS@1900 01/24/19 01/24/19 History Allergies Allergy/AdvReac Type Severity Reaction Status Date / Time ampicillin Allergy Rash/Hives Verified 01/24/19 22:19 codeine Allergy Rash/Hives Verified 01/24/19 22:19 erythromycin base Allergy Rash/Hives Verified 01/24/19 22:19 lorazepam [From Ativan] Allergy Unknown Verified 01/24/19 22:19 Sulfa (Sulfonamide Allergy Rash/Hives Verified 01/24/19 22:19 Antibiotics) Physical Exam Vitals: Vital Signs Temp Pulse Pulse Resp BP BP Pulse Ox 01/25/19 04:00 97.6 F 47 L 16 118/64 98 01/25/19 03:07 16 01/24/19 23:47 97.6 F 47 L 16 159/80 100 01/24/19 23:19 16 01/24/19 22:00 97.8 F 48 L 16 145/86 100 01/24/19 20:34 48 L 17 158/73 99 01/24/19 16:58 51 L 01/24/19 16:43 98.5 F 56 L 18 162/73 99 Intake and Output 01/24/19 01/25/19 01/25/19 22:59 06:59 14:59 Intake Total 63.84 Balance 63.84 Intake: Intake, IV Titration 63.84 Amount Heparin Sod,Pork in 0.45% 63.84 NaCl 25,000 unit In 0.45 % NaCl 1 250ml.bag @ 12 UNITS/KG/HR 8.437 mls/hr IV .Q24H [facility] Rx#: [id number] Other: Voiding Method Toilet # Voids 2 Weight 70.307 kg - Constitutional General appearance: no acute distress - Respiratory Respiratory: bilateral: CTA - Cardiovascular Rhythm: regular Heart sounds: normal: S1, S2 Results 01/25/19 05:43 01/24/19 16:58 Cardiac Enzymes 01/24/19 01/24/19 01/24/19 Range/Units 16:58 16:58 23:08 AST 30 (14-36) U/L Troponin I <0.012 <0.012 (0.000-0.034) ng/mL 01/25/19 Range/Units 05:43 AST (14-36) U/L Troponin I <0.012 (0.000-0.034) ng/mL Coagulation 01/24/19 01/25/19 Range/Units 16:58 01:06 PT 9.8 (9.0-12.0) sec APTT 24.6 95.6 H (22.0-30.0) sec Lipids 01/25/19 Range/Units 05:43 Triglycerides 110 (<150) mg/dL Cholesterol 117 (<200) mg/dL HDL Cholesterol 46 (40-60) mg/dL CBC 01/24/19 01/25/19 Range/Units 16:58 05:43 WBC 9.5 (3.8-10.6) k/uL RBC 4.72 (3.80-5.40) m/uL Hgb 13.6 (11.4-16.0) gm/dL Hct 41.5 (34.0-46.0) % Plt Count 296 250 (150-450) k/uL Comprehensive Metabolic Panel 01/24/19 Range/Units 16:58 Sodium 140 (137-145) mmol/L Potassium 3.7 (3.5-5.1) mmol/L Chloride 106 (98-107) mmol/L Carbon Dioxide 26 (22-30) mmol/L BUN 11 (7-17) mg/dL Creatinine 0.67 (0.52-1.04) mg/dL Glucose 167 H (74-99) mg/dL Calcium 9.5 (8.4-10.2) mg/dL AST 30 (14-36) U/L ALT 28 (9-52) U/L Alkaline Phosphatase 188 H (38-126) U/L Total Protein 6.9 (6.3-8.2) g/dL Albumin 3.8 (3.5-5.0) g/dL Current Medications Generic Name Dose Route Start Last Admin Trade Name Freq PRN Reason Stop Dose Admin Aspirin 325 mg 01/25/19 09:00 Aspirin PO DAILY [facility] Atorvastatin Calcium 10 mg 01/24/19 22:55 01/24/19 23:53 Lipitor PO 10 mg HS@1900 [facility] Administration Heparin Sodium (Porcine) 0 unit 01/24/19 23:30 Heparin IV PER PROTOCOL PRN Low PTT Protocol Heparin Sodium/Sodium Chloride 250 mls @ 8.437 mls/hr 01/24/19 18:15 01/25/19 02:44 25,000 unit/ Sodium Chloride IV 10 units/kg/hr .Q24H [facility] 7.031 mls/hr Titration Protocol 12 UNITS/KG/HR Ibuprofen 400 mg 01/25/19 02:00 Motrin PO Q6HR PRN Pain Insulin Aspart 0 unit 01/24/19 22:56 01/24/19 23:53 Novolog SQ Not Given ACHS [facility] Protocol Insulin Detemir 20 unit 01/25/19 19:00 Levemir SQ HS@1900 [facility] Isosorbide Mononitrate 30 mg 01/24/19 22:55 01/24/19 23:53 Imdur PO 30 mg HS@1900 [facility] Administration Nitroglycerin 0.4 mg 01/24/19 18:07 Nitrostat SUBLINGUAL Q5M PRN Chest Pain Sertraline HCl 50 mg 01/24/19 22:55 01/24/19 23:53 Zoloft PO 50 mg HS@1900 [facility] Administration Intake and Output 01/24/19 01/25/19 01/25/19 22:59 06:59 14:59 Intake Total 63.84 Balance 63.84 Intake: Intake, IV Titration 63.84 Amount Heparin Sod,Pork in 0.45% 63.84 NaCl 25,000 unit In 0.45 % NaCl 1 250ml.bag @ 12 UNITS/KG/HR 8.437 mls/hr IV .Q24H [facility] Rx#: [id number] Other: Voiding Method Toilet # Voids 2 Weight 70.307 kg 01/25/19 05:43 01/24/19 16:58 Assessment and Plan Assessment: Assessment #1 atypical chest discomfort #2 sinus bradycardia #3 diabetes #4 hypertension #5 dyslipidemia Plan #1 the patient was ruled out for acute coronary event #2 I will DC the heparin #3 obtain an echocardiogram was Doppler #5 rule out hypothyroidism for the sinus bradycardia #6 the patient possibly to have permanent pacemaker Thank you for allowing us participate in her care and we will continue following up with her
[2019-01-25 10:10] LABS: T4, Free (Free Thyroxine) 1.33 ng/dL (0.78-2.19)
[2019-01-25] MEDS: INSULIN ASPART (NovoLOG) 100 UNIT/ML VIAL SQ SCH ×4 (10:34→20:52)
[2019-01-25 11:28] LABS: Glucose,Whole Blood 124 mg/dL (75-99)
[2019-01-25] MEDS: ASPIRIN 325 MG TAB PO SCH (12:28)
--- NOTE | 2019-01-25 15:29 | P.HPIM ---
History of Present Illness H&P Date: 01/25/19 Chief Complaint: Chest pain/dizziness 63-year-old female patient who follows was Dr. Londono in the office on regular basis with a past medical history significant for diabetes, hypertension, and dyslipidemia, presented to the emergency room complaining of chest discomfort. She described the discomfort as a sharp kind of discomfort, in the mid of the chest, without any radiation, and without any associated symptoms. Beside that, she has been experiencing intermittent episodes of dizziness and lightheadedness. As a matter of fact she was admitted to the hospital in 2017 was dizziness and lightheadedness and presyncope and she underwent a heart catheterization at that point and that revealed normal coronaries. She has been bradycardic during her hospital stay. She has been in the upper 40s. She stated that she was told that she might need to have a pacemaker in the past but that never done. EKG showed sinus bradycardia. The cardiac enzymes were checked and came in to be unremarkable. The chest x-ray showed no acute abnormalities. Review of Systems Constitutional: Denies chills, Denies fever Eyes: denies blurred vision Ears, nose, mouth and throat: Denies epistaxis, Denies headache Cardiovascular: Reports chest pain, Reports lightheadedness, Reports shortness of breath Respiratory: Denies cough with sputum Gastrointestinal: Denies abdominal pain, Denies nausea, Denies vomiting Genitourinary: Denies dysuria, Denies hematuria Past Medical History Past Medical History: Atrial Fibrillation, Asthma, Cancer, Chest Pain / Angina, Heart Failure, COPD, Diabetes Mellitus, Fibromyalgia, GERD/Reflux, Hyperlipidemia, Hypertension, Osteoarthritis (OA), Pneumonia, Rheumatoid Arthritis (RA), Seizure Disorder, Sleep Apnea/CPAP/BIPAP Additional Past Medical History / Comment(s): mult TIA-no effects, last seizure 1 yr ago, migraines, irregular heartbeat, varicose veins, no cpap used, oxygen PRN for migraines, hx ulcer, IBS, gout, UTI's, ovarian cancer, diverticulitis History of Any Multi-Drug Resistant Organisms: None Reported Past Surgical History: Appendectomy, Bariatric Surgery, Cholecystectomy, Hernia Repair, Hysterectomy, Joint Replacement, Orthopedic Surgery Additional Past Surgical History / Comment(s): lap band/later removed, gastric sleeve, colon resection for diverticulitis, rt knee replacement, "stent in nose- from fx nose", rt thumb- tendon surgery, Past Anesthesia/Blood Transfusion Reactions: Previous Problems w/ Anesthesia Additional Past Anesthesia/Blood Transfusion Reaction / Comment(s): spray used to numb throat-had anaphylaxis(does not know name). slow to wake up Past Psychological History: Anxiety, Depression, PTSD Additional Psychological History / Comment(s): . Smoking Status: Never smoker Past Alcohol Use History: None Reported Past Drug Use History: None Reported - Past Family History Father Family Medical History: Cancer Additional Family Medical History / Comment(s): . Mother Family Medical History: Coronary Artery Disease (CAD), Dementia, Diabetes Mellitus, Thyroid Disorder Additional Family Medical History / Comment(s): diverticulitis, Sister(s) Family Medical History: Cancer Medications and Allergies Home Medications Medication Instructions Recorded Confirmed Type Insulin Glargine [Lantus] 30 unit SQ HS@1900 05/01/16 01/24/19 History INSULIN ASPART (NovoLOG) [NovoLOG 15 unit SQ AC-TID 04/20/17 01/24/19 History (formulary)] Sertraline [Zoloft] 50 mg PO HS@1900 03/01/18 01/24/19 History Isosorbide Mononitrate ER [Imdur] 30 mg PO HS@1900 01/24/19 01/24/19 History Nitroglycerin Sl Tabs [Nitrostat] 0.4 mg SUBLINGUAL Q5M PRN 01/24/19 01/24/19 History Simvastatin [Zocor] 10 mg PO HS@1900 01/24/19 01/24/19 History Allergies Allergy/AdvReac Type Severity Reaction Status Date / Time ampicillin Allergy Rash/Hives Verified 01/24/19 22:19 codeine Allergy Rash/Hives Verified 01/24/19 22:19 erythromycin base Allergy Rash/Hives Verified 01/24/19 22:19 lorazepam [From Ativan] Allergy Unknown Verified 01/24/19 22:19 Sulfa (Sulfonamide Allergy Rash/Hives Verified 01/24/19 22:19 Antibiotics) Physical Exam Vitals: Vital Signs Temp Pulse Pulse Pulse Resp BP BP 01/25/19 11:21 98.3 F 59 L 17 111/67 01/25/19 07:58 97.6 F 53 L 16 01/25/19 04:00 97.6 F 47 L 16 118/64 01/25/19 03:07 16 01/24/19 23:47 97.6 F 47 L 16 159/80 01/24/19 23:19 16 01/24/19 22:00 97.8 F 48 L 16 145/86 01/24/19 20:34 48 L 17 158/73 01/24/19 16:58 51 L 01/24/19 16:43 98.5 F 56 L 18 162/73 BP Pulse Ox 01/25/19 11:21 98 01/25/19 07:58 115/54 99 01/25/19 04:00 98 01/25/19 03:07 01/24/19 23:47 100 01/24/19 23:19 01/24/19 22:00 100 01/24/19 20:34 99 01/24/19 16:58 01/24/19 16:43 99 Intake and Output 01/24/19 01/25/19 01/25/19 22:59 06:59 14:59 Intake Total 63.84 Balance 63.84 Intake: Intake, IV Titration 63.84 Amount Heparin Sod,Pork in 0.45% 63.84 NaCl 25,000 unit In 0.45 % NaCl 1 250ml.bag @ 12 UNITS/KG/HR 8.437 mls/hr IV .Q24H [facility] Rx#: [id number] Other: Voiding Method Toilet Toilet # Voids 2 Weight 70.307 kg General appearance: alert, in no apparent distress Head exam: Present: atraumatic, normocephalic, normal inspection Eye exam: Present: normal appearance, PERRL, EOMI. Absent: scleral icterus, conjunctival injection, periorbital swelling ENT exam: Present: normal exam, normal oropharynx, mucous membranes moist Neck exam: Present: normal inspection, full ROM. Absent: tenderness, meningismus, lymphadenopathy Respiratory exam: Present: normal lung sounds bilaterally. Absent: respiratory distress, wheezes, rales, rhonchi, stridor Cardiovascular Exam: Present: regular rate, normal rhythm, normal heart sounds. Absent: systolic murmur, diastolic murmur, rubs, gallop, clicks Neurological exam: Present: alert, oriented X3, CN II-XII intact Skin exam: Present: warm, dry, intact, normal color. Absent: rash Results CBC & Chem 7: 01/25/19 05:43 01/24/19 16:58 Labs: Abnormal Lab Results - Last 24 Hours (Table) 01/24/19 01/24/19 01/25/19 Range/Units 16:58 23:30 01:06 APTT 95.6 H (22.0-30.0) sec Glucose 167 H (74-99) mg/dL POC Glucose (mg/dL) 69 L (75-99) mg/dL Alkaline Phosphatase 188 H (38-126) U/L 01/25/19 01/25/19 Range/Units 06:34 11:27 APTT (22.0-30.0) sec Glucose (74-99) mg/dL POC Glucose (mg/dL) 111 H 124 H (75-99) mg/dL Alkaline Phosphatase (38-126) U/L Thrombosis Risk Factor Assmnt - Choose All That Apply Any of the Below Risk Factors Present?: Yes Each Factor Represents 1 point: Abnormal pulmonary function (COPD), Hx of IBD, Obesity (BMI >25), Varicose veins Other Risk Factors: Yes Each Risk Factor Represents 2 Points: Age 61-74 years Other congenital or acquired thrombophilia - If yes, enter type in comment: No Thrombosis Risk Factor Assessment Total Risk Factor Score: 6 Thrombosis Risk Factor Assessment Level: High Risk Assessment and Plan Assessment: 1. Chest pain rule out acute coronary syndrome - Patient is started on IV heparin per protocol; we will continue to further recommendations from cardiology - Monitor EKG and trend troponin; 2-D echocardiogram 2. Sinus bradycardia - Continuous cardiac telemetry; monitor electrolytes and thyroid function - Cardiology to see patient for possible pacemaker insertion pending completion of workup 3. Diabetes mellitus type I - Levemir 20 units subcu daily at bedtime - Monitor Accu-Cheks Before meals and at bedtime with insulin sliding scale 4. Hypertension; continue with isosorbide 30 mg by mouth daily at bedtime 5. Hyperlipidemia; continue with Lipitor 10 mg by mouth daily at bedtime 6. DVT prophylaxis; systemic anticoagulation with IV heparin/ SCDs CODE STATUS; full code
[2019-01-25 16:34] LABS: Glucose,Whole Blood 169 mg/dL (75-99)
--- NOTE | 2019-01-25 17:39 | ECHOF ---
Referral Reason:cp MEASUREMENTS -------- HEIGHT: 152.4 cm WEIGHT: 70.3 kg BP: RVIDd: 2.5 cm (< 3.3) IVSd: 1.0 cm (0.6 - 1.1) LVIDd: 4.4 cm (3.9 - 5.3) LVPWd: 1.4 cm (0.6 - 1.1) IVSs: 1.2 cm LVIDs: 3.5 cm LVPWs: 1.7 cm LA Diam: 3.6 cm (2.7 - 3.8) LAESV Index (A-L): 26.14 ml/m Ao Diam: 2.7 cm (2.0 - 3.7) AV Cusp: 1.7 cm (1.5 - 2.6) LA Diam: 3.8 cm (2.7 - 3.8) MV EXCURSION: 21.866 mm (> 18.000) MV EF SLOPE: 66 mm/s (70 - 150) EPSS: 0.6 cm MV E Kj: 0.82 m/s MV DecT: 261 ms MV A Kj: 0.96 m/s MV E/A Ratio: 0.86 RAP: 5.00 mmHg RVSP: 10.87 mmHg FINDINGS -------- Sinus rhythm. This was a techncally difficult study with suboptimal views, , Lumason utilized for enhancement of im ages. LV size, wall thickness and systolic function are normal, with an EF greater than 55%. The left gus tricular size is normal. The right ventricle is normal in size. The left atrial size is normal. Normal LA size by volume 22+/-6 ml/m2. The right atrial size is normal. 5.0mg OF Lumason UTLIZED: 2 OR MORE WALL SEGMENTS NOT VISUALIZED. Interatrial and interventricular septum intact. There is mild aortic valve sclerosis. There is no evidence of aortic regurgitation. Mild mitral annular calcification present. Mild mitral regurgitation is present. Mild tricuspid regurgitation present. There is no evidence of pulmonary hypertension. The right v entricular systolic pressure, as measured by Doppler, is 10.87mmHg. There is no pulmonic regurgitation present. The aortic root, ascending aorta and aortic arch are normal. There is no pericardial effusion. CONCLUSIONS -------- 1. This was a techncally difficult study with suboptimal views, , Lumason utilized for enhancement of images. 2. LV size, wall thickness and systolic function are normal, with an EF greater than 55%. 3. The left ventricular size is normal. 4. The right ventricle is normal in size. 5. The left atrial size is normal. 6. Normal LA size by volume 22+/-6 ml/m2. 7. The right atrial size is normal. 8. 5.0mg OF Lumason UTLIZED: 2 OR MORE WALL SEGMENTS NOT VISUALIZED. 9. Interatrial and interventricular septum intact. 10. There is mild aortic valve sclerosis. 11. Mild mitral annular calcification present. 12. Mild mitral regurgitation is present. 13. Mild tricuspid regurgitation present. 14. There is no evidence of pulmonary hypertension. 15. The right ventricular systolic pressure, as measured by Doppler, is 10.87mmHg. 16. There is no pulmonic regurgitation present. 17. The aortic root, ascending aorta and aortic arch are normal. 18. There is no pericardial effusion. [employer]: Ivon Rodriguez RDCS
[2019-01-25 20:01] LABS: Glucose,Whole Blood 191 mg/dL (75-99)
[2019-01-25] MEDS: IBUPROFEN 400 MG TAB PO PRN (20:50)
[2019-01-25] MEDS: ISOSORBIDE MONONITRATE ER 30 MG TAB.ER.24H PO SCH (20:51)
[2019-01-25] MEDS: ATORVASTATIN 10 MG TAB PO SCH (20:51)
[2019-01-25] MEDS: INSULIN DETEMIR (LEVEMIR) 100 UNIT/ML SYR SQ SCH (20:51)
[2019-01-25] MEDS: SERTRALINE 50 MG TAB PO SCH (20:51)
[2019-01-26 07:21] LABS: Glucose,Whole Blood 118 mg/dL (75-99)
--- NOTE | 2019-01-26 08:03 | P.PN ---
Subjective Progress Note Date: 01/26/19 Principal diagnosis: Chest pain This is a pleasant 63-year-old female patient who follows was Dr. Londono in the office on regular basis with a past medical history significant for diabetes, hypertension, and dyslipidemia, presented to the emergency room complaining of chest discomfort. She described the discomfort as a sharp kind of discomfort, in the mid of the chest, without any radiation, and without any associated symptoms. Beside that, she has been experiencing intermittent episodes of dizziness and lightheadedness. As a matter of fact she was admitted to the hospital in 2017 was dizziness and lightheadedness and presyncope and she underwent a heart catheterization at that point and that revealed normal coronaries. She has been bradycardic during her hospital stay. She has been in the upper 40s. She stated that she was told that she might need to have a pacemaker in the past but that never done. EKG showed sinus bradycardia. The cardiac enzymes were checked and came in to be unremarkable. The chest x-ray showed no acute abnormalities. On follow-up with the patient today, 01/26/2019, she still experiencing chest discomfort. Also she started experiencing dizziness and lightheadedness. She continues to be bradycardic with heart rate in the 40s as well as 50s. The TSH and free T4 were checked and came in to be unremarkable. I discussed her case yesterday was Dr. 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 The echocardiogram revealed normal LV function without any significant valvular abnormalities. Objective - Vital Signs Vital signs: Vital Signs Temp 98.6 F 01/26/19 07:32 Pulse 64 01/26/19 07:32 Resp 16 01/26/19 07:32 BP 108/68 01/26/19 07:32 Pulse Ox 97 01/26/19 07:32 Intake & Output 01/25/19 01/26/19 01/26/19 18:59 06:59 18:59 Intake Total 480 240 Balance 480 240 Intake: Oral 480 240 Other: Voiding Method Toilet Toilet # Voids 1 2 - Constitutional General appearance: Present: no acute distress - Respiratory Respiratory: bilateral: CTA - Cardiovascular Rhythm: regular Heart sounds: normal: S1, S2 - Labs CBC & Chem 7: 01/25/19 05:43 01/24/19 16:58 Labs: Abnormal Lab Results - Last 24 Hours (Table) 01/25/19 01/25/19 01/25/19 Range/Units 11:27 16:33 19:58 POC Glucose (mg/dL) 124 H 169 H 191 H (75-99) mg/dL 01/26/19 Range/Units 06:56 POC Glucose (mg/dL) 118 H (75-99) mg/dL Assessment and Plan Assessment: Assessment #1 atypical chest discomfort #2 sinus bradycardia #3 diabetes #4 hypertension #5 dyslipidemia Plan #1 the patient was ruled out for acute coronary event #2 a heart catheterization from 2 years ago showed normal coronaries #3 I am not concerned about severe CAD as an etiology for her symptoms of chest pain #3 I am concerned about bradycardia behind her dizziness and lightheadedness and the syncope about 2 years ago #4 hypothyroidism was ruled out by a normal TSH and free T4 #5 monitor the heart rate for additional 24 hours and decide the need for permanent pacemaker. Thank you for allowing us participate in her care and we will continue following up with her
[2019-01-26] MEDS: INSULIN ASPART (NovoLOG) 100 UNIT/ML VIAL SQ SCH ×4 (08:35→19:55)
[2019-01-26 08:37] LABS: Anion Gap 3 mmol/L; Blood Urea Nitrogen 17 mg/dL (7-17); Calcium 9.3 mg/dL (8.4-10.2); Carbon Dioxide 30 mmol/L (22-30); Chloride 106 mmol/L (98-107); Glucose 158 mg/dL (74-99); Potassium 4.4 mmol/L (3.5-5.1); Sodium 139 mmol/L (137-145)
[2019-01-26] MEDS: IBUPROFEN 400 MG TAB PO PRN (08:40)
[2019-01-26] MEDS: ASPIRIN 325 MG TAB PO SCH (08:40)
[2019-01-26 08:51] LABS: Basophils % (A) 1 %; Eosinophils # (A) 0.3 k/uL (0-0.7); Eosinophils % (A) 3 %; HCT 38.6 % (34.0-46.0); HGB 12.4 gm/dL (11.4-16.0); Lymphocytes # (A) 2.4 k/uL (1.0-4.8); Lymphocytes % (A) 32 %; MCHC 32.2 g/dL (31.0-37.0); MCV 90.2 fL (80.0-100.0); Mean Platelet Volume 7.6; Monocytes # (A) 0.4 k/uL (0-1.0); Monocytes % (A) 6 %; Neutrophils # (A) 4.1 k/uL (1.3-7.7); Neutrophils % (A) 55 %; Platelet Count 242 k/uL (150-450); RBC 4.28 m/uL (3.80-5.40); RDW 13.6 % (11.5-15.5); WBC 7.4 k/uL (3.8-10.6)
[2019-01-26 11:30] LABS: Glucose,Whole Blood 123 mg/dL (75-99)
--- NOTE | 2019-01-26 13:43 | P.PN ---
Subjective Progress Note Date: 01/26/19 Principal diagnosis: Chest pain Symptomatic bradycardia 63-year-old female patient who follows was Dr. Londono in the office on regular basis with a past medical history significant for diabetes, hypertension, and dyslipidemia, presented to the emergency room complaining of c hest discomfort. She described the discomfort as a sharp kind of discomfort, in the mid of the chest, without any radiation, and without any associated symptoms. Beside that, she has been experiencing intermittent episodes of dizziness and lightheadedness. As a matter of fact she was admitted to the hospital in 2017 was dizziness and lightheadedness and presyncope and she underwent a heart catheterization at that point and that revealed normal coronaries. She has been bradycardic during her hospital stay. She has been in the upper 40s. She stated that she was told that she might need to have a pacemaker in the past but that never done. EKG showed sinus bradycardia. The cardiac enzymes were checked and came in to be unremarkable. The chest x-ray showed no acute abnormalities. 01/26/2019, she still experiencing chest discomfort. Also she started experiencing dizziness and lightheadedness. She continues to be bradycardic with heart rate in the 40s as well as 50s. The TSH and free T4 were checked and came in to be unremarkable. Cardiology service to discuss patient's care with primary lathe winder and the plan is to monitor her heart rate for additional 24 hours to 48 hours and decide the need for permanent pacemaker. The echocardiogram revealed normal LV function without any significant valvular abnormalities. Objective - Vital Signs Vital signs: Vital Signs Temp 98.6 F 01/26/19 07:32 Pulse 47 L 01/26/19 08:30 Resp 16 01/26/19 07:32 BP 108/68 01/26/19 07:32 Pulse Ox 97 01/26/19 07:32 Intake & Output 01/25/19 01/26/19 01/26/19 18:59 06:59 18:59 Intake Total 480 240 Balance 480 240 Intake: Oral 480 240 Other: Voiding Method Toilet Toilet Toilet # Voids 1 2 - Exam PHYSICAL EXAMINATION: GENERAL: The patient is alert and oriented x3, not in any acute distress. Well developed, well nourished. HEENT: Pupils are round and equally reacting to light. EOMI. No scleral icterus. No conjunctival pallor. Normocephalic, atraumatic. No pharyngeal erythema. No thyromegaly. CARDIOVASCULAR: S1 and S2 present. No murmurs, rubs, or gallops. PULMONARY: Chest is clear to auscultation, no wheezing or crackles. ABDOMEN: Soft, nontender, nondistended, normoactive bowel sounds. No palpable organomegaly. MUSCULOSKELETAL: No joint swelling or deformity. EXTREMITIES: No cyanosis, clubbing, or pedal edema. NEUROLOGICAL: Gross neurological examination did not reveal any focal deficits. SKIN: No rashes. - Labs CBC & Chem 7: 01/26/19 07:31 01/26/19 07:31 Labs: Abnormal Lab Results - Last 24 Hours (Table) 01/25/19 01/25/19 01/25/19 Range/Units 11:27 16:33 19:58 Glucose (74-99) mg/dL POC Glucose (mg/dL) 124 H 169 H 191 H (75-99) mg/dL 01/26/19 01/26/19 Range/Units 06:56 07:31 Glucose 158 H (74-99) mg/dL POC Glucose (mg/dL) 118 H (75-99) mg/dL Assessment and Plan Assessment: 1. Chest pain rule out acute coronary syndrome - Patient is started on IV heparin per protocol; we will continue to further recommendations from cardiology - Monitor EKG and trend troponin; 2-D echocardiogram 2. Sinus bradycardia - Continuous cardiac telemetry; monitor electrolytes and thyroid function - Cardiology to see patient for possible pacemaker insertion pending completion of workup 3. Diabetes mellitus type I - Levemir 20 units subcu daily at bedtime - Monitor Accu-Cheks Before meals and at bedtime with insulin sliding scale 4. Hypertension; continue with isosorbide 30 mg by mouth daily at bedtime 5. Hyperlipidemia; continue with Lipitor 10 mg by mouth daily at bedtime 6. DVT prophylaxis; systemic anticoagulation with IV heparin/ SCDs CODE STATUS; full code Time with Patient: Greater than 30
[2019-01-26 16:49] LABS: Glucose,Whole Blood 146 mg/dL (75-99)
[2019-01-26] MEDS: ATORVASTATIN 10 MG TAB PO SCH (19:44)
[2019-01-26] MEDS: SERTRALINE 50 MG TAB PO SCH ×2 (19:44→19:46)
[2019-01-26] MEDS: INSULIN DETEMIR (LEVEMIR) 100 UNIT/ML SYR SQ SCH (19:44)
[2019-01-26] MEDS: ISOSORBIDE MONONITRATE ER 30 MG TAB.ER.24H PO SCH (19:44)
[2019-01-26 20:04] LABS: Glucose,Whole Blood 179 mg/dL (75-99)
[2019-01-27 06:46] LABS: Glucose,Whole Blood 123 mg/dL (75-99)
[2019-01-27 08:00] LABS: Basophils % (A) 1 %; Eosinophils # (A) 0.3 k/uL (0-0.7); Eosinophils % (A) 3 %; HCT 38.4 % (34.0-46.0); HGB 12.6 gm/dL (11.4-16.0); Lymphocytes % (A) 26 %; MCH 29.4 pg (25.0-35.0); MCV 89.1 fL (80.0-100.0); Mean Platelet Volume 7.2; Monocytes # (A) 0.5 k/uL (0-1.0); Monocytes % (A) 6 %; Neutrophils # (A) 4.8 k/uL (1.3-7.7); Neutrophils % (A) 62 %; Platelet Count 235 k/uL (150-450); RDW 13.4 % (11.5-15.5); WBC 7.7 k/uL (3.8-10.6)
[2019-01-27 08:19] LABS: Anion Gap 3 mmol/L; Blood Urea Nitrogen 15 mg/dL (7-17); Calcium 9.3 mg/dL (8.4-10.2); Carbon Dioxide 31 mmol/L (22-30); Chloride 107 mmol/L (98-107); Glucose 111 mg/dL (74-99); Potassium 4.2 mmol/L (3.5-5.1); Sodium 141 mmol/L (137-145)
[2019-01-27] MEDS ORDERED: SODIUM CHLORIDE 0.9% 1,000 ML IV SCH (08:30)
[2019-01-27] MEDS: INSULIN ASPART (NovoLOG) 100 UNIT/ML VIAL SQ SCH ×2 (08:53→12:05)
[2019-01-27] MEDS: ASPIRIN 325 MG TAB PO SCH (09:00)
[2019-01-27] MEDS ORDERED: SODIUM CHLORIDE 0.9% 500 ML 500 ML IV ONE (09:54)
--- NOTE | 2019-01-27 10:01 | P.PN ---
Subjective This is a pleasant 63 year female past medical history significant for diabetes mellitus, hypertension and dyslipidemia. She underwent cardiac catheterization in 2017 revealing normal coronary arteries with no evidence of obstructive disease. Echocardiogram obtained on this admission reveals ejection fraction 55% with mild mitral regurgitation, mild tricuspid regurgitation and mild aortic valve sclerosis. In 2017 she presented with similar symptoms of chest pain and dizziness. Beta blockers were discontinued at that time due to symptomatic bradycardia. She describes similar type dizziness and light headed feeling on exertion at this time. She currently denies chest pain, shortness of breath, palpitations, nausea, vomiting or diaphoresis. Currently maintained on imdur 30 mg daily and simvastatin 10 mg daily. Blood pressure 104/59 heart rate 55. Telemetry tracings have been reviewed and reveal consistent sinus bradycardia with a heart rate in the low to mid-50 range no evidence of significant bradycardia, pauses or arrhythmia otherwise. GENERAL: Well-appearing, well-nourished and in no acute distress. NECK: Supple without JVD or thyromegaly. LUNGS: Breath sounds clear to auscultation bilaterally. Respiration equal and unlabored. No wheezes, rales or rhonchi. HEART: Regular rate and rhythm without murmurs, rubs or gallops. S1 and S2 heard. EXTREMITIES: Normal range of motion, no edema. No clubbing or cyanosis. Pe ripheral pulses intact. ASSESSMENT Chest pain atypical for angina. An acute coronary event has been ruled out. Sinus bradycardia Diabetes mellitus Hypertension, not on medical therapy Dyslipidemia PLAN Perform tilt table study. Discontinue imdur as this may be causing her dizziness and there is no evidence of CAD on recent catheterization. Thus far no indication for pacemaker implantation. Follow up with Dr. Londono upon discharge. Nurse Practitioner note has been reviewed, I agree with a documented findings and plan of care. Patient was seen and examined. Objective - Vital Signs Vital signs: Vital Signs Temp 97.8 F 01/27/19 07:15 Pulse 55 L 01/27/19 07:15 Resp 18 01/27/19 07:15 BP 104/59 01/27/19 07:15 Pulse Ox 97 01/27/19 07:15 Intake & Output 01/26/19 01/27/19 01/27/19 18:59 06:59 18:59 Intake Total 720 Balance 720 Intake: Oral 720 Other: Voiding Method Toilet Toilet Toilet # Voids 1 1 - Labs CBC & Chem 7: 01/27/19 07:42 01/27/19 07:42 Labs: Abnormal Lab Results - Last 24 Hours (Table) 01/26/19 01/26/19 01/26/19 Range/Units 11:29 16:47 19:54 Carbon Dioxide (22-30) mmol/L Glucose (74-99) mg/dL POC Glucose (mg/dL) 123 H 146 H 179 H (75-99) mg/dL 01/27/19 01/27/19 Range/Units 06:44 07:42 Carbon Dioxide 31 H (22-30) mmol/L Glucose 111 H (74-99) mg/dL POC Glucose (mg/dL) 123 H (75-99) mg/dL
--- NOTE | 2019-01-27 11:17 | P.PCN ---
Preoperative Diagnosis: Diagnosis Recurrent dizzy spells Twelve-lead ECG shows sinus rhythm normal LA narrow QRS ventricular rate 57 beats a minute absolute QT interval of less than 460 ms Tilt table test per protocol Baseline heart rate 54 beats a minute Baseline blood pressure 149/73 mmHg between 16-18 minutes there was a sudden drop in her blood pressure to 86/53 mmHg and then subsequently 72/49 mmHg. She complained of being short of breath sick to her stomach and flushed. When she was laid supine her blood pressure improved to 99/60 mmHg. Impression Normal twelve-lead ECG Vasodepressive response to upright tilting
[2019-01-27 11:18] VITALS: RESP 17; TEMP 97.5
[2019-01-27 11:53] LABS: Glucose,Whole Blood 116 mg/dL (75-99)
[2019-01-27] MEDS: IBUPROFEN 400 MG TAB PO PRN (12:07)
--- NOTE | 2019-01-27 12:07 | P.DS ---
Providers Date of admission: 01/24/19 20:32 Expected date of discharge: 01/27/19 Attending physician: Raad Luciano Consults: 01/24/19 18:07 Consult Physician Urgent Consulting Provider: Kasi Pacheco Consult Reason/Comments: chest pain Do you want consulting provider notified?: Yes Primary care physician: Kevyn Luciano [facility] Course: Final Diagnoses: -Chest pain, Atypical for angina with acute coronary event ruled out per cardiology -Symptomatic sinus bradycardia ,status post positive tilt table, Imdur discontinued. (Recent cardiac cath did not report evidence of CAD). -Diabetes mellitus type 1 -Hypertension -Hyperlipidemia Hospital course:Symptomatic bradycardia 63-year-old female patient who follows was Dr. Londono in the office on regular basis with a past medical history significant for diabetes, hypertension, and dyslipidemia, presented to the emergency room complaining of chest discomfort. She described the discomfort as a sharp kind of discomfort, in the mid of the chest, without any radiation, and without any associated symptoms. Beside that, she has been experiencing intermittent episodes of dizziness and lightheadedness. As a matter of fact she was admitted to the hospital in 2017 was dizziness and lightheadedness and presyncope and she underwent a heart catheterization at that point and that revealed normal coronaries. She has been bradycardic during her hospital stay. She has been in the upper 40s. She stated that she was told that she might need to have a pacemaker in the past but that never done. EKG showed sinus bradycardia. The cardiac enzymes were checked and came in to be unremarkable. The chest x-ray showed no acute abnormalities. 01/26/2019, she still experiencing chest discomfort. Also she started experiencing dizziness and lightheadedness. She continues to be bradycardic with heart rate in the 40s as well as 50s. The TSH and free T4 were checked and came in to be unremarkable. Cardiology service to discuss patient's care with primary legal referee and the plan is to monitor her heart rate for additional 24 hours to 48 hours and decide the need for permanent pacemaker. The echocardiogram revealed normal LV function without any significant valvular abnormalities. 01/27/2019 Positive tilt table test, vasodepressive response to upright tilting. No evidence of CAD reported in cardiac cath 2017, Imdur discontinued as per cardiology. Cleared by cardiology for discharge. Patient is being discharged home in a stable condition with current prognosis. EXAM: GENERAL: alert and oriented x3, no acute distress. CARDIOLOGY: Regular S1 and S2, no murmurs rubs or gallops PULMONARY: Chest is clear to auscultation, no wheezing or crackles. ABDOMEN: Soft, nontender, nondistended, normoactive bowel sounds. NEUROLOGICAL: No focal deficits. The impression and plan of care has been dictated as directed. : I performed a history and examination of this patient, discussed the same with the dictator. I agree with the dictator's note ,documented as a scribe. Any additional findings or plans will be noted. Time taken: 35 minutes Patient Condition at Discharge: Stable Plan - Discharge Summary Discharge Rx Participant: No New Discharge Prescriptions: Continue INSULIN ASPART (NovoLOG) [NovoLOG (formulary)] 15 unit SQ AC-TID Sertraline [Zoloft] 50 mg PO HS@1900 Simvastatin [Zocor] 10 mg PO HS@1900 Nitroglycerin Sl Tabs [Nitrostat] 0.4 mg SUBLINGUAL Q5M PRN PRN Reason: Chest Pain Insulin Glargine [Lantus] 30 unit SQ HS@1900 #1 Discontinued Isosorbide Mononitrate ER [Imdur] 30 mg PO HS@1900 Discharge Medication List INSULIN ASPART (NovoLOG) [NovoLOG (formulary)] 15 unit SQ AC-TID 04/20/17 [History] Sertraline [Zoloft] 50 mg PO HS@1900 03/01/18 [History] Nitroglycerin Sl Tabs [Nitrostat] 0.4 mg SUBLINGUAL Q5M PRN 01/24/19 [History] Simvastatin [Zocor] 10 mg PO HS@1900 01/24/19 [History] Insulin Glargine [Lantus] 30 unit SQ HS@1900 #1 01/27/19 [Rx] Follow up Appointment(s)/Referral(s): Leandro Londono MD [STAFF PHYSICIAN] - 2 Weeks Kevyn Luciano DO [Primary Care Provider] - 3 Days
[2019-01-27 13:22] VITALS: BP 125/59; PULSE 60
--- NOTE | 2019-01-27 14:08 | P.PN ---
Progress Note - Text Explained the results of the Tilt Table test to the patient in detail. Advised her to use YAN hose bilaterally while awake, change positions slowly and increase PO salt intake along with water. She has also been advised to check her blood pressures at home daily and if she becomes symptomatic. Bring readings with her to follow up appointment with Dr. Londono. Stable for discharge.
== END 2019-01-27 14:35 | disposition home or self-care (01) | DRG 313 ==
LOC: EC 16:41 → OBSVTOIN 20:32 → 1SOBS 20:32
PROVIDERS: ADMIT Hospitalist; ATTEND Hospitalist
PROC: 4A02XFZ Measurement of Cardiac Rhythm, External Approach (ICD-10-PCS; principal; 2019-01-24)
PROC: 4A03XB1 Measurement of Arterial Pressure, Peripheral, External Approach (ICD-10-PCS; 2019-01-24)
DX: R07.89 Other chest pain (principal); R00.1 Bradycardia, unspecified; E10.9 Type 1 diabetes mellitus without complications; E78.5 Hyperlipidemia, unspecified; F32.9 Major depressive disorder, single episode, unspecified; F43.10 Post-traumatic stress disorder, unspecified; F41.9 Anxiety disorder, unspecified; G40.909 Epilepsy, unspecified, not intractable, without status epilepticus; G47.30 Sleep apnea, unspecified; I11.0 Hypertensive heart disease with heart failure; I48.91 Unspecified atrial fibrillation; I50.9 Heart failure, unspecified; J44.9 Chronic obstructive pulmonary disease, unspecified; K21.9 Gastro-esophageal reflux disease without esophagitis; M06.9 Rheumatoid arthritis, unspecified; M79.7 Fibromyalgia; Z79.4 Long term (current) use of insulin; Z79.899 Other long term (current) drug therapy; Z82.49 Family history of ischemic heart disease and other diseases of the circulatory system; Z83.3 Family history of diabetes mellitus; Z86.73 Personal history of transient ischemic attack (TIA), and cerebral infarction without residual deficits; Z90.710 Acquired absence of both cervix and uterus; Z96.651 Presence of right artificial knee joint; Z85.43 Personal history of malignant neoplasm of ovary; Z98.84 Bariatric surgery status; Z82.0 Family history of epilepsy and other diseases of the nervous system; Z88.4 Allergy status to anesthetic agent; Z88.1 Allergy status to other antibiotic agents; Z88.5 Allergy status to narcotic agent; Z88.0 Allergy status to penicillin; Z88.2 Allergy status to sulfonamides; Z87.01 Personal history of pneumonia (recurrent); Z87.440 Personal history of urinary (tract) infections
CPT/HCPCS: 36415; 71046; 80048; 80053; 80061; 83735; 84439; 84443; 84484; 85025; 85049; 85610; 85730; 93005; 93306; 93660; 96365; 96366; 96376; 99285

== ENCOUNTER → 2019-03-05 | Outpatient (CLI) | payer MEDICARE ==
[2019-03-06 00:03] LABS: African American GFR (CKD) 90.9 (60.0-200.0); Albumin/Globulin Ratio 1.67 (1.60-3.17); Anion Gap 5.6 mmol/L (4.00-12.00); BUN/Creat Ratio 13.75 Ratio (12.00-20.00); Calcium 9.4 mg/dL (8.7-10.3); Carbon Dioxide 28.4 mmol/L (21.6-31.8); Globulin 2.4 g/dL (1.6-3.3); Potassium 4.4 mmol/L (3.5-5.5); Total Bilirubin 0.7 mg/dL (0.2-1.2); Total Protein 6.4 g/dL (6.2-8.2)
== END | disposition home or self-care (01) ==
LOC: LABWHC1 15:02
PROVIDERS: ATTEND Internal Medicine Endocrinology, Diabetes & Metabolism
DX: E11.65 Type 2 diabetes mellitus with hyperglycemia (principal)
CPT/HCPCS: 36415; 80053; 84681

== ENCOUNTER 2019-05-05 20:48 | Emergency (ER) | payer MEDICARE ==
[2019-05-05 21:06] VITALS: TEMP 97.9
[2019-05-05 21:35] LABS: Glucose,Whole Blood 567 mg/dL (75-99)
[2019-05-05] MEDS ORDERED: SODIUM CHLORIDE 0.9% 1,000 ML IV STA (22:01)
--- NOTE | 2019-05-05 22:02 | ED ---
General Adult HPI - General Chief complaint: Recheck/Abnormal Lab/Rx Stated complaint: Sugar Issues, dehydrated Time Seen by Provider: 05/05/19 21:16 Source: patient Mode of arrival: wheelchair Limitations: no limitations - History of Present Illness Initial comments: Dictation was produced using [employer] dictation software. please excuse any grammatical, word or spelling errors. Chief Complaint: 64-year-old female multiple comorbidities presents with hyperglycemia History of Present Illness: 64-year-old female multiple comorbidities presents with elevated blood sugar. Patient recently had a lot of personal stress. They had a Memorial for a recently family member. Patient states that during this time she hasn't been taking care of herself very well. Patient history of diabetes. She takes ABGs medication. She reports that she states is new medication that is new to the market she does not know the name of it is. Patient feels like she is also dehydrated. She feels like she has been urinating more. She also complains of burning on urination. The ROS documented in this emergency department record has been reviewed and confirmed by me. Those systems with pertinent positive or negative responses have been documented in the HPI. All other systems are other negative and/or noncontributory. PHYSICAL EXAM: General Impression: Alert and oriented x3, not in acute distress HEENT: Normocephalic atraumatic, extra-ocular movements intact, pupils equal and reactive to light bilaterally, dry mucous members, Cardiovascular: Heart regular rate and rhythm, S1&S2 audible, no murmurs, rubs or gallops Chest: Lungs clear to auscultation bilaterally, no rhonchi, no wheeze, no rales Abdomen: Bowel sounds present, abdomen soft, non-tender, non-distended, no organomegaly Musculoskeletal: Pulses present and equal in all extremities, no peripheral edema Motor: no focal deficits noted Neurological: CN II-XII grossly intact, no focal motor or sensory deficits noted Skin: Intact with no visualized rashes, skin tenting Psych: Normal affect and mood ED course: 64-year-old male presents with elevated blood sugar. She is a diabetic on anti-hyperglycemics. As upon arrival are within acceptable limits. Lab data evaluation obtained. CBC unremarkable. Metabolic panel shows initial glucose of 623. Sodium 133 secondary to pseudohyponatremia. Urinalysis shows 4+ glucose. Patient given intravenous fluids and 10 units of regular IV insulin with improvement of blood sugar to 388. Patient given more intravenous fluids and another 5 units of IV insulin. Patient's clinical presentation consistent with hyperglycemia. No signs of acidosis or significant dehydration at this time. Discussed with patient in detail the significance of appropriate glucose management. She is told to continue taking her diabetic medications at home. Patient must follow-up with her PCP upon discharge. - Related Data Home Medications Medication Instructions Recorded Confirmed INSULIN ASPART (NovoLOG) [NovoLOG 15 unit SQ AC-TID 04/20/17 01/24/19 (formulary)] Sertraline [Zoloft] 50 mg PO HS@1900 03/01/18 01/24/19 Nitroglycerin Sl Tabs [Nitrostat] 0.4 mg SUBLINGUAL Q5M PRN 01/24/19 01/24/19 Simvastatin [Zocor] 10 mg PO HS@1900 01/24/19 01/24/19 Previous Rx's Medication Instructions Recorded Insulin Glargine [Lantus] 30 unit SQ HS@1900 #1 01/27/19 Allergies Allergy/AdvReac Type Severity Reaction Status Date / Time ampicillin Allergy Rash/Hives Verified 05/05/19 21:05 codeine Allergy Rash/Hives Verified 05/05/19 21:05 erythromycin base Allergy Rash/Hives Verified 05/05/19 21:05 lorazepam [From Ativan] Allergy Unknown Verified 05/05/19 21:05 Sulfa (Sulfonamide Allergy Rash/Hives Verified 05/05/19 21:05 Antibiotics) Review of Systems ROS Statement: Those systems with pertinent positive or pertinent negative responses have been documented in the HPI. ROS Other: All systems not noted in ROS Statement are negative. Past Medical History Past Medical History: Atrial Fibrillation, Asthma, Cancer, Chest Pain / Angina, Heart Failure, COPD, Diabetes Mellitus, Fibromyalgia, GERD/Reflux, Hyperlipidemia, Hypertension, Osteoarthritis (OA), Pneumonia, Rheumatoid Arthritis (RA), Seizure Disorder, Sleep Apnea/CPAP/BIPAP Additional Past Medical History / Comment(s): mult TIA-no effects, last seizure 1 yr ago, migraines, irregular heartbeat, varicose veins, no cpap used, oxygen PRN for migraines, hx ulcer, IBS, gout, UTI's, ovarian cancer, diverticulitis History of Any Multi-Drug Resistant Organisms: None Reported Past Surgical History: Appendectomy, Bariatric Surgery, Cholecystectomy, Hernia Repair, Hysterectomy, Joint Replacement, Orthopedic Surgery Additional Past Surgical History / Comment(s): lap band/later removed, gastric sleeve, colon resection for diverticulitis, rt knee replacement, "stent in nose- from fx nose", rt thumb- tendon surgery, Past Anesthesia/Blood Transfusion Reactions: Previous Problems w/ Anesthesia Additional Past Anesthesia/Blood Transfusion Reaction / Comment(s): spray used to numb throat-had anaphylaxis(does not know name). slow to wake up Past Psychological History: Anxiety, Depression, PTSD Smoking Status: Never smoker Past Alcohol Use History: None Reported Past Drug Use History: None Reported - Past Family History Father Family Medical History: Cancer Additional Family Medical History / Comment(s): . Mother Family Medical History: Coronary Artery Disease (CAD), Dementia, Diabetes Mellitus, Thyroid Disorder Additional Family Medical History / Comment(s): diverticulitis, Sister(s) Family Medical History: Cancer General Exam Limitations: no limitations Course Vital Signs 05/05/19 21:02 Temperature 97.9 F Pulse Rate 82 Respiratory 18 Rate Blood Pressure 118/77 O2 Sat by Pulse 97 Oximetry Medical Decision Making - Lab Data Result diagrams: 05/05/19 23:20 05/05/19 22:20 Lab Results 05/05/19 05/05/19 05/05/19 Range/Units 21:34 22:20 22:50 WBC (3.8-10.6) k/uL RBC (3.80-5.40) m/uL Hgb (11.4-16.0) gm/dL Hct (34.0-46.0) % MCV (80.0-100.0) fL MCH (25.0-35.0) pg MCHC (31.0-37.0) g/dL RDW (11.5-15.5) % Plt Count (150-450) k/uL Neutrophils % % Lymphocytes % % Monocytes % % Eosinophils % % Basophils % % Neutrophils # (1.3-7.7) k/uL Lymphocytes # (1.0-4.8) k/uL Monocytes # (0-1.0) k/uL Eosinophils # (0-0.7) k/uL Basophils # (0-0.2) k/uL Sodium 133 L (137-145) mmol/L Potassium 5.1 (3.5-5.1) mmol/L Chloride 100 (98-107) mmol/L Carbon Dioxide 22 (22-30) mmol/L Anion Gap 11 mmol/L BUN 12 (7-17) mg/dL Creatinine 0.72 (0.52-1.04) mg/dL Est GFR (CKD-EPI)AfAm >90 (>60 ml/min/1.73 sqM) Est GFR (CKD-EPI)NonAf 90 (>60 ml/min/1.73 sqM) Glucose 623 H* (74-99) mg/dL POC Glucose (mg/dL) 567 H (75-99) mg/dL POC Glu Furnace Loader ID Ana Sarabia Calcium 9.0 (8.4-10.2) mg/dL Urine Color Light Yellow Urine Appearance Clear (Clear) Urine pH 6.5 (5.0-8.0) Ur Specific Dunlap 1.034 (1.001-1.035) Urine Protein Negative (Negative) Urine Glucose (UA) 4+ H (Negative) Urine Ketones Negative (Negative) Urine Blood Negative (Negative) Urine Nitrite Negative (Negative) Urine Bilirubin Negative (Negative) Urine Urobilinogen <2.0 (<2.0) mg/dL Ur Leukocyte Esterase Moderate H (Negative) Urine RBC 7 H (0-5) /hpf Urine WBC 3 (0-5) /hpf Ur Squamous Epith Cells 2 (0-4) /hpf Urine Bacteria Rare H (None) /hpf 05/05/19 05/06/19 05/06/19 Range/Units 23:20 00:02 00:52 WBC 6.4 (3.8-10.6) k/uL RBC 4.52 (3.80-5.40) m/uL Hgb 13.1 (11.4-16.0) gm/dL Hct 41.6 (34.0-46.0) % MCV 92.1 (80.0-100.0) fL MCH 29.0 (25.0-35.0) pg MCHC 31.5 (31.0-37.0) g/dL RDW 13.6 (11.5-15.5) % Plt Count 201 (150-450) k/uL Neutrophils % 52 % Lymphocytes % 36 % Monocytes % 5 % Eosinophils % 4 % Basophils % 1 % Neutrophils # 3.4 (1.3-7.7) k/uL Lymphocytes # 2.3 (1.0-4.8) k/uL Monocytes # 0.3 (0-1.0) k/uL Eosinophils # 0.2 (0-0.7) k/uL Basophils # 0.0 (0-0.2) k/uL Sodium (137-145) mmol/L Potassium (3.5-5.1) mmol/L Chloride (98-107) mmol/L Carbon Dioxide (22-30) mmol/L Anion Gap mmol/L BUN (7-17) mg/dL Creatinine (0.52-1.04) mg/dL Est GFR (CKD-EPI)AfAm (>60 ml/min/1.73 sqM) Est GFR (CKD-EPI)NonAf (>60 ml/min/1.73 sqM) Glucose (74-99) mg/dL POC Glucose (mg/dL) 451 H 388 H (75-99) mg/dL POC Glu Furnace Loader KEVIN Sarabia, Ana Sarabia, Ana Calcium (8.4-10.2) mg/dL Urine Color Urine Appearance (Clear) Urine pH (5.0-8.0) Ur Specific [place] (1.001-1.035) Urine Protein (Negative) Urine Glucose (UA) (Negative) Urine Ketones (Negative) Urine Blood (Negative) Urine Nitrite (Negative) Urine Bilirubin (Negative) Urine Urobilinogen (<2.0) mg/dL Ur Leukocyte Esterase (Negative) Urine RBC (0-5) /hpf Urine WBC (0-5) /hpf Ur Squamous Epith Cells (0-4) /hpf Urine Bacteria (None) /hpf Disposition Clinical Impression: Hyperglycemia Disposition: HOME SELF-CARE Condition: Good Instructions (If sedation given, give patient instructions): Diabetic Hyperglycemia (ED) Is patient prescribed a controlled substance at d/c from ED?: No Referrals: Kevyn Luciano DO [Primary Care Provider] - 1-2 days Time of Disposition: 01:16
[2019-05-05 22:41] LABS: African American GFR (CKD) >90 (>60 ml/min/1.73 sqM); Anion Gap 11 mmol/L; Blood Urea Nitrogen 12 mg/dL (7-17); Carbon Dioxide 22 mmol/L (22-30); Chloride 100 mmol/L (98-107); Sodium 133 mmol/L (137-145)
[2019-05-05 22:43] LABS: Glucose 623 mg/dL (74-99); Potassium 5.1 mmol/L (3.5-5.1)
[2019-05-05] MEDS ORDERED: INSULIN REGULAR 100 UNIT/ML VIAL IV ONE (23:25)
[2019-05-05 23:29] LABS: Appearance,Urine Clear (Clear); Bacteria,Urine Rare /hpf; Bilirubin,Urine Negative (Negative); Blood,Urine Negative (Negative); Color,Urine Light Yellow; Glucose,Urine (UA) 4+ (Negative); Ketones,Urine Negative (Negative); Leukocyte Esterase,Urine Moderate (Negative); Nitrite,Urine Negative (Negative); PH, Urine 6.5 (5.0-8.0); Protein,Urine Negative (Negative); RBC,Urine 7 /hpf (0-5); Specific Gravity,Urine 1.034 (1.001-1.035); Squamous Epithelial Cell,Urine 2 /hpf (0-4); Urobilinogen,Urine <2.0 mg/dL (<2.0)
[2019-05-05 23:32] LABS: Basophils % (A) 1 %; Eosinophils # (A) 0.2 k/uL (0-0.7); Eosinophils % (A) 4 %; HCT 41.6 % (34.0-46.0); HGB 13.1 gm/dL (11.4-16.0); Lymphocytes # (A) 2.3 k/uL (1.0-4.8); Lymphocytes % (A) 36 %; MCHC 31.5 g/dL (31.0-37.0); MCV 92.1 fL (80.0-100.0); Mean Platelet Volume 7.5; Monocytes # (A) 0.3 k/uL (0-1.0); Monocytes % (A) 5 %; Neutrophils # (A) 3.4 k/uL (1.3-7.7); Neutrophils % (A) 52 %; Platelet Count 201 k/uL (150-450); RBC 4.52 m/uL (3.80-5.40); RDW 13.6 % (11.5-15.5); WBC 6.4 k/uL (3.8-10.6)
[2019-05-06 00:03] LABS: Glucose,Whole Blood 451 mg/dL (75-99)
[2019-05-06] MEDS ORDERED: SODIUM CHLORIDE 0.9% 1,000 ML IV ONE (00:07)
[2019-05-06 00:54] LABS: Glucose,Whole Blood 388 mg/dL (75-99)
[2019-05-06] MEDS ORDERED: INSULIN REGULAR 100 UNIT/ML VIAL IV ONE (01:21)
[2019-05-06 02:10] LABS: Glucose,Whole Blood 152 mg/dL (75-99)
[2019-05-06 02:36] VITALS: BP 147/81; PULSE 89; RESP 16
== END 2019-05-06 02:36 | disposition home or self-care (01) ==
LOC: EC 20:48
DX: E11.65 Type 2 diabetes mellitus with hyperglycemia (principal); F41.9 Anxiety disorder, unspecified; F32.9 Major depressive disorder, single episode, unspecified; F43.10 Post-traumatic stress disorder, unspecified; I20.9 Angina pectoris, unspecified; E78.5 Hyperlipidemia, unspecified; I11.0 Hypertensive heart disease with heart failure; I50.9 Heart failure, unspecified; I48.91 Unspecified atrial fibrillation; M19.90 Unspecified osteoarthritis, unspecified site; Z79.4 Long term (current) use of insulin; Z79.899 Other long term (current) drug therapy; Z88.1 Allergy status to other antibiotic agents; Z88.2 Allergy status to sulfonamides; Z88.5 Allergy status to narcotic agent; Z88.0 Allergy status to penicillin; Z88.8 Allergy status to other drugs, medicaments and biological substances; Z96.651 Presence of right artificial knee joint; Z85.43 Personal history of malignant neoplasm of ovary; Z83.3 Family history of diabetes mellitus
CPT/HCPCS: 36415; 80048; 81001; 85025; 96360; 96361; 99284

== ENCOUNTER 2019-05-14 19:02 | Observation (INO) | payer MEDICARE ==
[2019-05-14] MEDS ORDERED: ASPIRIN 81 MG PO STA (19:31)
[2019-05-14] MEDS ORDERED: SODIUM CHLORIDE 0.9% 500 ML 500 ML IV STA (19:31)
[2019-05-14] MEDS ORDERED: NITROGLYCERIN SL TABS 0.4 MG TAB SUBLINGUAL STA (19:31)
[2019-05-14] MEDS ORDERED: MORPHINE SULFATE 2 MG/ML SYRINGE IVP STA (19:32)
[2019-05-14] MEDS ORDERED: ONDANSETRON 4 MG/2 ML VIAL IVP STA (19:32)
[2019-05-14 20:12] LABS: Basophils # (A) 0.1 k/uL (0-0.2); Basophils % (A) 1 %; Eosinophils # (A) 0.2 k/uL (0-0.7); Eosinophils % (A) 3 %; HCT 47.2 % (34.0-46.0); HGB 15.2 gm/dL (11.4-16.0); Lymphocytes # (A) 2.7 k/uL (1.0-4.8); Lymphocytes % (A) 35 %; MCH 28.5 pg (25.0-35.0); MCHC 32.1 g/dL (31.0-37.0); MCV 88.9 fL (80.0-100.0); Mean Platelet Volume 7.3; Monocytes # (A) 0.4 k/uL (0-1.0); Monocytes % (A) 6 %; Neutrophils # (A) 3.9 k/uL (1.3-7.7); Neutrophils % (A) 52 %; Platelet Count 270 k/uL (150-450); RBC 5.31 m/uL (3.80-5.40); RDW 13.8 % (11.5-15.5); WBC 7.5 k/uL (3.8-10.6)
--- NOTE | 2019-05-14 20:20 | ED ---
Chest Pain HPI - General Source: patient, family Mode of arrival: wheelchair Limitations: no limitations <Beulah Rojo - Last Filed: 05/14/19 22:08> <Johana Iqbal - Last Filed: 05/14/19 22:55> - General Chief Complaint: Chest Pain Stated Complaint: Chest pain, DELLA Time Seen by Provider: 05/14/19 19:08 - History of Present Illness Initial Comments: 64-year-old female patient with past medical history significant for A. fib, asthma, angina, heart failure, diabetes, fibromyalgia, rheumatoid arthritis, and other chronic medical conditions, presents to the emergency department today for evaluation of left-sided chest pain radiating down the left arm. Patient states she is also having sweats with this and shortness of breath. She denies any nausea or vomiting. Denies any abdominal pain at rest. Patient states the pain started on 11 AM today. States it has been intermittent. Denies any known exacerbating or relieving factors. Denies taking any medication for her symptoms. Patient denies any recent rash, fever, chills, cough, diarrhea, constipation, back pain, numbness, tingling, dizziness, weakness, hematuria, dysuria, urinary urgency, urinary frequency, headache, visual changes, or any other complaints. (Beulah Rojo) - Related Data Home Medications Medication Instructions Recorded Confirmed INSULIN ASPART (NovoLOG) [NovoLOG 10 unit SQ BID 04/20/17 05/14/19 (formulary)] Sertraline [Zoloft] 50 mg PO HS 03/01/18 05/14/19 Simvastatin [Zocor] 10 mg PO HS 01/24/19 05/14/19 Insulin Glargine [Lantus] 30 unit SQ HS 05/14/19 05/14/19 Allergies Allergy/AdvReac Type Severity Reaction Status Date / Time ampicillin Allergy Rash/Hives Verified 05/14/19 19:57 codeine Allergy Rash/Hives Verified 05/14/19 19:57 erythromycin base Allergy Rash/Hives Verified 05/14/19 19:57 lorazepam [From Ativan] Allergy Unknown Verified 05/14/19 19:57 Sulfa (Sulfonamide Allergy Rash/Hives Verified 05/14/19 19:57 Antibiotics) Review of Systems ROS Other: All systems not noted in ROS Statement are negative. <Beulah Rojo - Last Filed: 05/14/19 22:08> ROS Other: All systems not noted in ROS Statement are negative. <Johana Iqbal Kathy - Last Filed: 05/14/19 22:55> ROS Statement: Those systems with pertinent positive or pertinent negative responses have been documented in the HPI. EKG Findings - EKG Comments: EKG Findings:: EKG obtained in 1926 shows normal sinus rhythm with a ventricular rate of 64, ND interval 162, QRS duration 80, QT 418, QTC 431. No evidence of ST elevation or depression. <Beulah Rojo - Last Filed: 05/14/19 22:08> Past Medical History Past Medical History: Atrial Fibrillation, Asthma, Cancer, Chest Pain / Angina, Heart Failure, COPD, Diabetes Mellitus, Fibromyalgia, GERD/Reflux, Hyperlipidemia, Hypertension, Osteoarthritis (OA), Pneumonia, Rheumatoid Arthritis (RA), Seizure Disorder, Sleep Apnea/CPAP/BIPAP Additional Past Medical History / Comment(s): mult TIA-no effects, last seizure 1 yr ago, migraines, irregular heartbeat, varicose veins, no cpap used, oxygen PRN for migraines, hx ulcer, IBS, gout, UTI's, ovarian cancer, diverticulitis History of Any Multi-Drug Resistant Organisms: None Reported Past Surgical History: Appendectomy, Bariatric Surgery, Cholecystectomy, Hernia Repair, Hysterectomy, Joint Replacement, Orthopedic Surgery Additional Past Surgical History / Comment(s): lap band/later removed, gastric sleeve, colon resection for diverticulitis, rt knee replacement, "stent in nose- from fx nose", rt thumb- tendon surgery, Past Anesthesia/Blood Transfusion Reactions: Previous Problems w/ Anesthesia Additional Past Anesthesia/Blood Transfusion Reaction / Comment(s): spray used to numb throat-had anaphylaxis(does not know name). slow to wake up Past Psychological History: Anxiety, Depression, PTSD Smoking Status: Never smoker Past Alcohol Use History: None Reported Past Drug Use History: None Reported - Past Family History Father Family Medical History: Cancer Additional Family Medical History / Comment(s): . Mother Family Medical History: Coronary Artery Disease (CAD), Dementia, Diabetes Mellitus, Thyroid Disorder Additional Family Medical History / Comment(s): diverticulitis, Sister(s) Family Medical History: Cancer <Beulah Rojo - Last Filed: 05/14/19 22:08> General Exam Limitations: no limitations <Beulah Rojo - Last Filed: 05/14/19 22:08> Course Vital Signs 05/14/19 05/14/19 05/14/19 19:05 20:10 20:40 Temperature 97.6 F Pulse Rate 74 Respiratory 19 18 18 Rate Blood Pressure 151/83 130/71 137/80 O2 Sat by Pulse 99 99 99 Oximetry 05/14/19 05/14/19 05/14/19 21:10 22:10 22:40 Temperature Pulse Rate 56 L 58 L 70 Respiratory 18 18 18 Rate Blood Pressure 156/78 141/60 137/72 O2 Sat by Pulse 99 99 98 Oximetry Chest Pain MDM <Beulah Rojo - Last Filed: 05/14/19 22:08> <Johana Iqbal - Last Filed: 05/14/19 22:55> - [facility] RADIOLOGY:Two-view x-ray of the chest is obtained. Report reviewed in its entirety. Impression by Dr. Coronado shows subsegmental atelectasis at the bases instruction of mild vascular congestion. Along with mild cardiomegaly, these findings can be seen with left ventricular dysfunction. There is no pneumonia. MDM: 64-year-old female patient presents to the emergency department today for evaluation of chest pain with radiation down the left arm. Patient exhibited associated nausea, shortness of breath, and sweats. Physical examination is unremarkable. Lungs are clear to auscultation with good air movement. There is no reproducible pain with palpation. Patient did receive IV morphine and sublingual nitro here in the emergency department. Upon reevaluation she does report improvement of symptoms. Chest x-ray showed no acute cardiopulmonary process. EKG showed normal sinus rhythm. She'll be admitted for further evaluation by cardiology and serial troponins. (Beulah Rojo) I personally saw and evaluated the patient, I agree with the mid-level provider's assessment. I discussed patient care with the patient's primary care physician Dr. Luciano who agrees with plan for observation and evaluation by cardiology. (Johana Iqbal) Disposition Decision to Admit Reason: Admit from EC Decision Date: 05/14/19 Decision Time: 21:53 <Beulah Rojo - Last Filed: 05/14/19 22:08> <Johana Iqbal P - Last Filed: 05/14/19 22:55> Clinical Impression: Chest pain Disposition: [facility] Condition: Serious Referrals: Kevyn Luciano DO [Primary Care Provider] - 1-2 days
[2019-05-14 20:23] LABS: INR 0.9 (<1.2); Partial Thromboplastin Time 23.4 sec (22.0-30.0); Prothrombin Time 9.5 sec (9.0-12.0)
[2019-05-14 20:26] LABS: Albumin 4.3 g/dL (3.5-5.0); Calcium 10.8 mg/dL (8.4-10.2); Magnesium 2.2 mg/dL (1.6-2.3); Potassium 3.8 mmol/L (3.5-5.1); Total Bilirubin 1.3 mg/dL (0.2-1.3); Total Protein 7.8 g/dL (6.3-8.2)
[2019-05-14 20:50] VITALS: RESP 18
--- NOTE | 2019-05-14 21:23 | XR ---
EXAM: XR Chest, 2 Views CLINICAL HISTORY: ITS.REASON XR Reason: Chest Pain TECHNIQUE: Frontal and lateral views of the chest. COMPARISON: 01/24/19 FINDINGS: Lungs: Subsegmental atelectasis at both bases. No definite consolidation, pleural effusion or pneumothorax. No hilar or mediastinal enlargement. Trachea is unremarkable. Suggestion of mild vascular congestion at the upper lungs. Pleural space: See above. Heart: Cardiomegaly. Mediastinum: See above. Bones/joints: Degenerative changes of the acromioclavicular joints and spine. IMPRESSION: Subsegmental atelectasis at the bases and suggestion of mild vascular congestion. Along with mild cardiomegaly, these findings can be seen with left ventricular dysfunction. However, there is no pneumonia.
[2019-05-14] MEDS ORDERED: NALOXONE 0.4 MG/ML 1 ML VIAL IV PRN (21:51)
[2019-05-14] MEDS ORDERED: MORPHINE SULFATE 4 MG/ML SYRINGE IV PRN (21:51)
[2019-05-14] MEDS ORDERED: ONDANSETRON 4 MG/2 ML VIAL IVP PRN (21:51)
[2019-05-15 06:44] LABS: Glucose,Whole Blood 156 mg/dL (75-99)
[2019-05-15] MEDS ORDERED: FLUCONAZOLE 100 MG TAB PO ONE (09:07)
[2019-05-15] MEDS ORDERED: VANCOMYCIN IV PER PHARMACY 1 EACH MISC MISCELLANE PRN (09:09)
[2019-05-15] MEDS ORDERED: NYSTATIN 100,000UNIT/GM CREAM 30 GM TUBE TOPICAL SCH (09:15)
[2019-05-15] MEDS ORDERED: VANCOMYCIN 1,250 MG in SODIUM CHLORIDE 0.9% 250 ML IVPB ONE (09:30)
[2019-05-15 09:33] LABS: African American GFR (CKD) >90 (>60 ml/min/1.73 sqM)
[2019-05-15] MEDS: INSULIN ASPART (NovoLOG) 100 UNIT/ML VIAL SQ SCH ×2 (10:37→16:00)
--- NOTE | 2019-05-15 11:19 | P.CRDCN ---
History of Present Illness History of present illness: This is a pleasant 64-year-old female past medical history significant for hypertension, dyslipidemia and diabetes mellitus. She follows in the office with Dr. Londono. She also was recently diagnosed with orthostatic hypotension with a positive tilt table test in January 2019. We have been asked to see her in consultation for chest pain. She states since waking up yesterday m orning she was having a sharp pain in the left precordial region with radiation at times down the left arm. She felt light headed, short of breath and mildly diaphoretic at times throughout the day. There is no specific aggravating or alleviating factors verbalized. Upon arrival to ED last evening her she was continuing to feel symptomatic. Blood pressure on arrival was 151/83 heart rate74. She was given IV morphine and her pain subsided. She has had no further episodes since that time. She is seen and examined laying flat resting comfortably in bed. She recently was in the office with similar chest pains and underwent Lexiscan stress test that was negative for reversible ischemia. EKG reveals sinus mechanism with no acute ST or T-wave abnormalities. Chest x-ray reveals subsegmental atelectasis at the bases suggestive of mild vascular congestion, mild cardiomegaly. No acute infiltrate noted. Laboratory data reviewed, WBC 7.5, hemoglobin 15.2, platelets 270, sodium 139, potassium 3.8, creatinine 0.88, cardiac enzymes negative x3, magnesium 2.2. Current cardiac medications include simvastatin 10 mg daily. Recent echocardiogram obtained 01/2019 reveals preserved LV systolic function with EF 55-60%. Cardiac catheterization 2016 revealed normal coronary arteries with no obstructi ve disease. At the time of my exam: CONSTITUTIONAL: Denies fever. Denies chills. EYES: Denies blurred vision. Denies vision changes. Denies eye pain. EARS, NOSE, MOUTH & THROAT: Denies headache. Denies sore throat. Denies ear pain. CARDIOVASCULAR: Denies chest pain. Denies shortness of breath. Denies orthopnea. Denies PND. Denies palpitations. RESPIRATORY: Denies cough. GASTROINTESTINAL: Complains of abdominal pain. Denies diarrhea. Denies constipation. Denies nausea. Denies vomiting. MUSCULOSKELETAL: Denies myalgias. INTEGUMENTARY: Denies pruitis. Denies rash. NEUROLOGIC: Denies numbness. Denies tingling. Denies weakness. PSYCHIATRIC: Denies anxiety. Denies depression. ENDOCRINE: Denies fatigue. Denies weight change. Denies polydipsia. Denies polyurina. GENITOURINARY: Denies burning, hematuria or urgency with micturation. HEMATOLOGIC: Denies history of anemia. Denies bleeding. Blood pressure 109/65 heart rate 58 afebrile maintaining oxygen saturation on room air GENERAL: This is a 64-year-old female in no apparent distress at the time of my examination. HEENT: Head is atraumatic, normocephalic. Pupils are equal, round. Sclerae anicteric. Conjunctivae are clear. Mucous membranes of the mouth are moist. Neck is supple. There is no jugular venous distention. No carotid bruit is heard. LUNGS: Clear to auscultation no wheezes, rales or rhonchi. No chest wall tenderness is noted on palpation or with deep breathing. HEART: Regular rate and rhythm without murmurs, rubs or gallops. S1 and S2 heard. ABDOMEN: Soft, tender throughout. Bowel sounds are heard. No organomegaly noted. EXTREMITIES: No evidence of peripheral edema and no calf tenderness noted. VASCULAR: Radial and dorsalis pedis pulses palpated, no evidence of clubbing. NEUROLOGIC: Patient is awake, alert and oriented x3. ASSESSMENT Chest pain, atypical. An acute coronary event has been ruled out. Abdominal pain Orthostatic hypotension History of hypertension Dyslipidemia Diabetes mellitus PLAN An acute coronary event has been ruled out. Symptoms are not suggestive of underlying coronary artery disease. Recent normal stress test and normal cardiac catheterization in 2017. Abdominal pain to be addressed by primary care team. Follow up with Dr. Londono upon discharge. We will follow as needed. Thank you kindly for this consultation. Nurse Practitioner note has been reviewed, I agree with a documented findings and plan of care. Patient was seen and examined. Past Medical History Past Medical History: Atrial Fibrillation, Asthma, Cancer, Chest Pain / Angina, Heart Failure, COPD, Diabetes Mellitus, Fibromyalgia, GERD/Reflux, Hyperlipide marlene, Hypertension, Osteoarthritis (OA), Pneumonia, Rheumatoid Arthritis (RA), Seizure Disorder, Sleep Apnea/CPAP/BIPAP Additional Past Medical History / Comment(s): mult TIA-no effects, last seizure 1 yr ago, migraines, irregular heartbeat, varicose veins, no cpap used, oxygen PRN for migraines, hx ulcer, IBS, gout, UTI's, ovarian cancer, diverticulitis History of Any Multi-Drug Resistant Organisms: None Reported Past Surgical History: Appendectomy, Bariatric Surgery, Cholecystectomy, Hernia Repair, Hysterectomy, Joint Replacement, Orthopedic Surgery Additional Past Surgical History / Comment(s): lap band/later removed, gastric sleeve, colon resection for diverticulitis, rt knee replacement, "stent in nose- from fx nose", rt thumb- tendon surgery, Past Anesthesia/Blood Transfusion Reactions: Previous Problems w/ Anesthesia Additional Past Anesthesia/Blood Transfusion Reaction / Comment(s): spray used to numb throat-had anaphylaxis(does not know name). slow to wake up Past Psychological History: Anxiety, Depression, PTSD Additional Psychological History / Comment(s): . Smoking Status: Never smoker Past Alcohol Use History: None Reported Past Drug Use History: None Reported - Past Family History Father Family Medical History: Cancer Additional Family Medical History / Comment(s): . Mother Family Medical History: Coronary Artery Disease (CAD), Dementia, Diabetes Mellitus, Thyroid Disorder Additional Family Medical History / Comment(s): diverticulitis, Sister(s) Family Medical History: Cancer Medications and Allergies Home Medications Medication Instructions Recorded Confirmed Type INSULIN ASPART (NovoLOG) [NovoLOG 10 unit SQ BID 04/20/17 05/14/19 History (formulary)] Sertraline [Zoloft] 50 mg PO HS 03/01/18 05/14/19 History Simvastatin [Zocor] 10 mg PO HS 01/24/19 05/14/19 History Insulin Glargine [Lantus] 30 unit SQ HS 05/14/19 05/14/19 History Empagliflozin [Jardiance] 25 mg PO DAILY 05/15/19 05/15/19 History Allergies Allergy/AdvReac Type Severity Reaction Status Date / Time ampicillin Allergy Rash/Hives Verified 05/14/19 19:57 codeine Allergy Rash/Hives Verified 05/14/19 19:57 erythromycin base Allergy Rash/Hives Verified 05/14/19 19:57 lorazepam [From Ativan] Allergy Unknown Verified 05/14/19 19:57 Sulfa (Sulfonamide Allergy Rash/Hives Verified 05/14/19 19:57 Antibiotics) Physical Exam Vitals: Vital Signs Temp Pulse Pulse Resp BP BP BP 05/15/19 07:25 97.3 F L 58 L 18 109/65 05/15/19 04:00 97.4 F L 55 L 18 110/67 05/15/19 00:00 97.5 F L 60 18 166/69 05/14/19 23:00 97.9 F 65 18 149/77 05/14/19 22:40 70 18 137/72 05/14/19 22:10 58 L 18 141/60 05/14/19 21:10 56 L 18 156/78 05/14/19 20:40 18 137/80 05/14/19 20:10 18 130/71 05/14/19 19:05 97.6 F 74 19 151/83 Pulse Ox 05/15/19 07:25 96 05/15/19 04:00 97 05/15/19 00:00 98 05/14/19 23:00 97 05/14/19 22:40 98 05/14/19 22:10 99 05/14/19 21:10 99 05/14/19 20:40 99 05/14/19 20:10 99 05/14/19 19:05 99 Intake and Output 05/14/19 05/15/19 05/15/19 22:59 06:59 14:59 Other: Weight 65.771 kg Results 05/14/19 19:50 05/15/19 07:24 Cardiac Enzymes 05/14/19 05/14/19 05/15/19 Range/Units 19:50 19:50 01:29 AST 58 H (14-36) U/L Troponin I <0.012 <0.012 (0.000-0.034) ng/mL 05/15/19 Range/Units 07:24 AST (14-36) U/L Troponin I <0.012 (0.000-0.034) ng/mL Coagulation 05/14/19 Range/Units 19:50 PT 9.5 (9.0-12.0) sec APTT 23.4 (22.0-30.0) sec CBC 05/14/19 Range/Units 19:50 WBC 7.5 (3.8-10.6) k/uL RBC 5.31 (3.80-5.40) m/uL Hgb 15.2 (11.4-16.0) gm/dL Hct 47.2 H (34.0-46.0) % Plt Count 270 (150-450) k/uL Comprehensive Metabolic Panel 05/14/19 Range/Units 19:50 Sodium 139 (137-145) mmol/L Potassium 3.8 (3.5-5.1) mmol/L Chloride 100 (98-107) mmol/L Carbon Dioxide 25 (22-30) mmol/L BUN 16 (7-17) mg/dL Creatinine 0.88 (0.52-1.04) mg/dL Glucose 258 H (74-99) mg/dL Calcium 10.8 H (8.4-10.2) mg/dL AST 58 H (14-36) U/L ALT 31 (9-52) U/L Alkaline Phosphatase 247 H (38-126) U/L Total Protein 7.8 (6.3-8.2) g/dL Albumin 4.3 (3.5-5.0) g/dL Current Medications Generic Name Dose Route Start Last Admin Trade Name Freq PRN Reason Stop Dose Admin Morphine Sulfate 4 mg 05/14/19 21:51 Morphine Sulfate (Inj) IV Q4HR PRN Severe Pain Naloxone HCl 0.2 mg 05/14/19 21:51 Narcan IV Q2M PRN Opioid Reversal Ondansetron HCl 4 mg 05/14/19 21:51 Zofran IVP Q8HR PRN Nausea And Vomiting Intake and Output 05/14/19 05/15/19 05/15/19 22:59 06:59 14:59 Other: Weight 65.771 kg 05/14/19 19:50 05/14/19 19:50
[2019-05-15 11:31] VITALS: BP 139/79; PULSE 59; TEMP 97.4
[2019-05-15 11:49] LABS: Glucose,Whole Blood 151 mg/dL (75-99)
--- NOTE | 2019-05-15 13:27 | P.HPIM ---
History of Present Illness H&P Date: 05/15/19 Chief Complaint: Chest pain History and Physical and Discharge Summary This is a 63-year-old female patient who follows was Dr. Londono in the of formerly [facility] on regular basis with a past medical history significant for diabetes, hypertension, and dyslipidemia, presented to the emergency room complaining of intermittent chest discomfort. Complained of left-sided chest pain radiating down the left arm with shortness of breath, diaphoresis at home. Denies any nausea, vomiting, diarrhea. Denies abdominal pain. Denies lightheadedness dizziness or focal deficits. Denies fever or chills. Denies cough. Reports sister had 2 months ago and has been grieving, not always following consistent carb diet, with elevated blood sugars throughout the last few weeks. Also presents with yeast appearing rash suprapubic region, and mild on left mid abdomen, states went to urgent care center who had called her back with culture results stating staph infection. EKG reporting sinus rhythm, troponins negative X 3, electrolytes within normal limits , afebrile, WBC 7.5, hemoglobin 15.2, platelets 270 , creatinine 0.88 , alk phos 247 ,chest x-ray reporting subsegmental basilar atelectasis, mild vascular congestion, cardiomegaly, no acute infiltrate. Received sublingual nitro, IV morphine in the ER with symptoms subsiding. Cardiology consulted. Review of Systems ROS Other: All systems not noted in ROS Statement are negative. ROS Statement: Those systems with pertinent positive or pertinent negative responses have been documented in the HPI. Past Medical History Past Medical History: Atrial Fibrillation, Asthma, Cancer, Chest Pain / Angina, Heart Failure, COPD, Diabetes Mellitus, Fibromyalgia, GERD/Reflux, Hype rlipidemia, Hypertension, Osteoarthritis (OA), Pneumonia, Rheumatoid Arthritis (RA), Seizure Disorder, Sleep Apnea/CPAP/BIPAP Additional Past Medical History / Comment(s): mult TIA-no effects, last seizure 1 yr ago, migraines, irregular heartbeat, varicose veins, no cpap used, oxygen PRN for migraines, hx ulcer, IBS, gout, UTI's, ovarian cancer, diverticulitis History of Any Multi-Drug Resistant Organisms: None Reported Past Surgical History: Appendectomy, Bariatric Surgery, Cholecystectomy, Hernia Repair, Hysterectomy, Joint Replacement, Orthopedic Surgery Additional Past Surgical History / Comment(s): lap band/later removed, gastric sleeve, colon resection for diverticulitis, rt knee replacement, "stent in nose- from fx nose", rt thumb- tendon surgery, Past Anesthesia/Blood Transfusion Reactions: Previous Problems w/ Anesthesia Additional Past Anesthesia/Blood Transfusion Reaction / Comment(s): spray used to numb throat-had anaphylaxis(does not know name). slow to wake up Past Psychological History: Anxiety, Depression, PTSD Additional Psychological History / Comment(s): . Smoking Status: Never smoker Past Alcohol Use History: None Reported Past Drug Use History: None Reported - Past Family History Father Family Medical History: Cancer Additional Family Medical History / Comment(s): . Mother Family Medical History: Coronary Artery Disease (CAD), Dementia, Diabetes Mellitus, Thyroid Disorder Additional Family Medical History / Comment(s): diverticulitis, Sister(s) Family Medical History: Cancer Medications and Allergies Home Medications Medication Instructions Recorded Confirmed Type INSULIN ASPART (NovoLOG) [NovoLOG 10 unit SQ BID 04/20/17 05/14/19 History (formulary)] Sertraline [Zoloft] 50 mg PO HS 03/01/18 05/14/19 History Simvastatin [Zocor] 10 mg PO HS 01/24/19 05/14/19 History Insulin Glargine [Lantus] 30 unit SQ HS 05/14/19 05/14/19 History Empagliflozin [Jardiance] 25 mg PO DAILY 05/15/19 05/15/19 History Nystatin 100,000Unit/gm Cream 1 applic TOPICAL BID #15 gm 05/15/19 Rx [Mycostatin Cream] Allergies Allergy/AdvReac Type Severity Reaction Status Date / Time ampicillin Allergy Rash/Hives Verified 05/14/19 19:57 codeine Allergy Rash/Hives Verified 05/14/19 19:57 erythromycin base Allergy Rash/Hives Verified 05/14/19 19:57 lorazepam [From Ativan] Allergy Unknown Verified 05/14/19 19:57 Sulfa (Sulfonamide Allergy Rash/Hives Verified 05/14/19 19:57 Antibiotics) Physical Exam Vitals: Vital Signs Temp Pulse Pulse Resp BP BP BP 05/15/19 07:25 97.3 F L 58 L 18 109/65 05/15/19 04:00 97.4 F L 55 L 18 110/67 05/15/19 00:00 97.5 F L 60 18 166/69 05/14/19 23:00 97.9 F 65 18 149/77 05/14/19 22:40 70 18 137/72 05/14/19 22:10 58 L 18 141/60 05/14/19 21:10 56 L 18 156/78 05/14/19 20:40 18 137/80 05/14/19 20:10 18 130/71 05/14/19 19:05 97.6 F 74 19 151/83 Pulse Ox 05/15/19 07:25 96 05/15/19 04:00 97 05/15/19 00:00 98 05/14/19 23:00 97 05/14/19 22:40 98 05/14/19 22:10 99 05/14/19 21:10 99 05/14/19 20:40 99 05/14/19 20:10 99 05/14/19 19:05 99 Intake and Output 05/14/19 05/15/19 05/15/19 22:59 06:59 14:59 Other: Weight 65.771 kg PHYSICAL EXAM: VITAL SIGNS: As above GENERAL: Sitting up in bed, no acute distress HEENT: Conjunctivae normal. eyes normal. Oral mucosa dry NECK: No JVD. No thyroid enlargement. No LNs CARDIOVASCULAR: S1, S2 regular. No murmur RESPIRATION: Breath sounds diminished in the bases. No rhonchi or crackles. No bronchial breathing. ABDOMEN: Soft, nontender . No guarding. no masses palpable. No ascites, No hepatosplenomegaly.Bowel sounds heard. LEGS: No edema. no swelling PSYCHIATRY: Alert and oriented X3, mood and affect normal. NERVOUS SYSTEM: Cranial N 2-12 grossly normal. Moves all 4 limbs. Diffuse weak ness No focal deficits. Strength and sensation grossly intact.. Skin: no lesions, Yeast appearing rash suprapubic region, and mild on left mid abdomen Lymphatic system. No LN neck axilla or groin. Results CBC & Chem 7: 05/14/19 19:50 05/15/19 07:24 Labs: Abnormal Lab Results - Last 24 Hours (Table) 05/14/19 05/14/19 05/15/19 Range/Units 19:50 19:50 06:41 Hct 47.2 H (34.0-46.0) % Glucose 258 H (74-99) mg/dL POC Glucose (mg/dL) 156 H (75-99) mg/dL Calcium 10.8 H (8.4-10.2) mg/dL AST 58 H (14-36) U/L Alkaline Phosphatase 247 H (38-126) U/L Thrombosis Risk Factor Assmnt - Choose All That Apply Any of the Below Risk Factors Present?: Yes Each Factor Represents 1 point: Acute PA, Obesity (BMI >25) Other Risk Factors: Yes Each Risk Factor Represents 2 Points: Age 61-74 years Thrombosis Risk Factor Assessment Total Risk Factor Score: 4 Thrombosis Risk Factor Assessment Level: Moderate Risk Assessment and Plan Assessment: FInal Diagnoses; -Acute chest pain, atypical with acute coronary event ruled out as per cardiology. Recently sister , patient grieving. -Candidasis, Reports urgent care called and told her she had a staph infection. -Recently diagnosed with orthostatic hypotension, positive tilt table test. -Chronic atrial fibrillation -Chronic intermittent asthma, stable -Diabetes mellitus type 1 -Hypertension -Hyperlipidemia Plan: Continue on current medication regime ,monitoring and symptomatic treatment. Oral Diflucan 1, nystatin cream ,IV vancomycin as ordered.. Oral antibiotic has already been called in by PCPs office. Evaluated by cardiology, recent normal stress test accompanied by a normal cardiac catheterization in 2017. Significant clinical improvement. Cleared by cardiology for discharge. Patient is being discharged home in a stable condition with guarded prognosis. Discharge Medication List INSULIN ASPART (NovoLOG) [NovoLOG (formulary)] 10 unit SQ BID 04/20/17 [History] Sertraline [Zoloft] 50 mg PO HS 03/01/18 [History] Simvastatin [Zocor] 10 mg PO HS 01/24/19 [History] Insulin Glargine [Lantus] 30 unit SQ HS 05/14/19 [History] Empagliflozin [Jardiance] 25 mg PO DAILY 05/15/19 [History] Nystatin 100,000Unit/gm Cream [Mycostatin Cream] 1 applic TOPICAL BID #15 gm 05/15/19 [Rx] The impression and plan of care has been dictated as directed. : I performed a history and examination of this patient, discussed the same with the dictator. I agree with the dictator's note ,documented as a scribe. Any additional findings or plans will be noted. Time taken: 35 min.
[2019-05-15] MEDS ORDERED: SERTRALINE 50 MG TAB PO SCH (21:00)
[2019-05-15] MEDS ORDERED: INSULIN DETEMIR (LEVEMIR) 100 UNIT/ML SYR SQ SCH (21:00)
[2019-05-15] MEDS ORDERED: ATORVASTATIN 10 MG TAB PO SCH (21:00)
[2019-05-16] MEDS ORDERED: VANCOMYCIN 1,250 MG in SODIUM CHLORIDE 0.9% 250 ML IVPB SCH ×2
== END 2019-05-15 16:05 | disposition home or self-care (01) ==
LOC: EC 19:02 → 1SOBS 22:54
PROVIDERS: ADMIT Family Medicine; ATTEND Family Medicine
DX: R07.89 Other chest pain (principal); R61 Generalized hyperhidrosis; R11.0 Nausea; I48.2 Chronic atrial fibrillation; I95.1 Orthostatic hypotension; B37.9 Candidiasis, unspecified; J45.20 Mild intermittent asthma, uncomplicated; E10.9 Type 1 diabetes mellitus without complications; F43.20 Adjustment disorder, unspecified; E78.5 Hyperlipidemia, unspecified; I11.0 Hypertensive heart disease with heart failure; I50.9 Heart failure, unspecified; B95.8 Unspecified staphylococcus as the cause of diseases classified elsewhere; E66.9 Obesity, unspecified; Z68.28 Body mass index [BMI] 28.0-28.9, adult; J98.11 Atelectasis; M79.7 Fibromyalgia; M10.9 Gout, unspecified; G43.909 Migraine, unspecified, not intractable, without status migrainosus; I83.90 Asymptomatic varicose veins of unspecified lower extremity; K58.9 Irritable bowel syndrome, unspecified; F32.9 Major depressive disorder, single episode, unspecified; F41.9 Anxiety disorder, unspecified; R10.9 Unspecified abdominal pain; M06.9 Rheumatoid arthritis, unspecified; Z79.899 Other long term (current) drug therapy; Z79.4 Long term (current) use of insulin; Z88.0 Allergy status to penicillin; Z88.1 Allergy status to other antibiotic agents; Z88.2 Allergy status to sulfonamides; Z88.5 Allergy status to narcotic agent; Z88.8 Allergy status to other drugs, medicaments and biological substances; Z86.73 Personal history of transient ischemic attack (TIA), and cerebral infarction without residual deficits; Z87.01 Personal history of pneumonia (recurrent); Z87.440 Personal history of urinary (tract) infections; Z85.43 Personal history of malignant neoplasm of ovary; Z87.19 Personal history of other diseases of the digestive system; Z90.49 Acquired absence of other specified parts of digestive tract; Z98.84 Bariatric surgery status; Z90.710 Acquired absence of both cervix and uterus; F43.10 Post-traumatic stress disorder, unspecified; Z96.651 Presence of right artificial knee joint; Z80.9 Family history of malignant neoplasm, unspecified; Z83.3 Family history of diabetes mellitus; Z82.49 Family history of ischemic heart disease and other diseases of the circulatory system; Z81.8 Family history of other mental and behavioral disorders; Z83.49 Family history of other endocrine, nutritional and metabolic diseases; Z83.79 Family history of other diseases of the digestive system
CPT/HCPCS: 96365; 96366; 96375; 99285; 36415; 93005; 85379; 80053; 82565; 83690; 83735; 84484 ×2; 85025; 85610; 85730; 71046; G0378 ×2; J3370; J2405; J2270

== ENCOUNTER 2019-06-06 17:56 | Emergency (ER) | payer MEDICARE ==
[2019-06-06 18:07] VITALS: TEMP 98
[2019-06-06 18:50] LABS: Basophils # (A) 0.1 k/uL (0-0.2); Basophils % (A) 1 %; Eosinophils # (A) 0.2 k/uL (0-0.7); Eosinophils % (A) 2 %; HCT 49.2 % (34.0-46.0); HGB 15.9 gm/dL (11.4-16.0); Lymphocytes # (A) 2.2 k/uL (1.0-4.8); Lymphocytes % (A) 24 %; MCH 28.8 pg (25.0-35.0); MCHC 32.4 g/dL (31.0-37.0); Mean Platelet Volume 7.9; Monocytes # (A) 0.5 k/uL (0-1.0); Monocytes % (A) 5 %; Neutrophils # (A) 5.9 k/uL (1.3-7.7); Neutrophils % (A) 66 %; Platelet Count 264 k/uL (150-450); RBC 5.53 m/uL (3.80-5.40); RDW 13.6 % (11.5-15.5)
[2019-06-06 19:02] LABS: Albumin 4.6 g/dL (3.5-5.0); Calcium 10.5 mg/dL (8.4-10.2); Potassium 4.6 mmol/L (3.5-5.1); Total Bilirubin 0.8 mg/dL (0.2-1.3); Total Protein 8.2 g/dL (6.3-8.2)
[2019-06-06 19:14] LABS: INR 0.8 (<1.2); Partial Thromboplastin Time 24.8 sec (22.0-30.0); Prothrombin Time 9.4 sec (9.0-12.0)
--- NOTE | 2019-06-06 20:27 | ED ---
Abdominal Pain HPI - General Chief Complaint: Abdominal Pain Stated Complaint: chest pain, abd pain Time Seen by Provider: 06/06/19 19:28 Source: patient Mode of arrival: ambulatory Limitations: no limitations - History of Present Illness Initial Comments: 64-year-old female patient has medical history significant for bowel obstruction 2 presents to emergency department today for evaluation of right sided abdominal pain and constipation. Patient states she has not had any stool output for the last 2 weeks. Patient states she occasionally passes gas. Patient states she has been quite nauseated. States she is able to eat and drink however it makes her very sick. States that she has felt feverish and chilled. Denies any hematuria, dysuria, urinary frequency, urinary urgency. Denies any pain radiation to the back. Patient states that she has been taking laxatives daily for the last 4 weeks. States that she did try an enema today and had no stool output. Patient denies any recent rash, shortness breath, chest pain, back pain, numbness, tingling, dizziness, weakness, headache, visual changes, or any other complaints. - Related Data Home Medications Medication Instructions Recorded Confirmed INSULIN ASPART (NovoLOG) [NovoLOG 10 unit SQ BID 04/20/17 05/14/19 (formulary)] Sertraline [Zoloft] 50 mg PO HS 03/01/18 05/14/19 Simvastatin [Zocor] 10 mg PO HS 01/24/19 05/14/19 Insulin Glargine [Lantus] 30 unit SQ HS 05/14/19 05/14/19 Empagliflozin [Jardiance] 25 mg PO DAILY 05/15/19 05/15/19 Previous Rx's Medication Instructions Recorded Nystatin 100,000Unit/gm Cream 1 applic TOPICAL BID #15 gm 05/15/19 [Mycostatin Cream] Allergies Allergy/AdvReac Type Severity Reaction Status Date / Time ampicillin Allergy Rash/Hives Verified 06/06/19 18:05 codeine Allergy Rash/Hives Verified 06/06/19 18:05 erythromycin base Allergy Rash/Hives Verified 06/06/19 18:05 lorazepam [From Ativan] Allergy Unknown Verified 06/06/19 18:05 Sulfa (Sulfonamide Allergy Rash/Hives Verified 06/06/19 18:05 Antibiotics) Review of Systems ROS Statement: Those systems with pertinent positive or pertinent negative responses have been documented in the HPI. ROS Other: All systems not noted in ROS Statement are negative. Past Medical History Past Medical History: Atrial Fibrillation, Asthma, Cancer, Chest Pain / Angina, Heart Failure, COPD, Diabetes Mellitus, Fibromyalgia, GERD/Reflux, Hyperlipidemia, Hypertension, Osteoarthritis (OA), Pneumonia, Rheumatoid Arthritis (RA), Seizure Disorder, Sleep Apnea/CPAP/BIPAP Additional Past Medical History / Comment(s): mult TIA-no effects, last seizure 1 yr ago, migraines, irregular heartbeat, varicose veins, no cpap used, oxygen PRN for migraines, hx ulcer, IBS, gout, UTI's, ovarian cancer, diverticulitis History of Any Multi-Drug Resistant Organisms: None Reported Past Surgical History: Appendectomy, Bariatric Surgery, Cholecystectomy, Hernia Repair, Hysterectomy, Joint Replacement, Orthopedic Surgery Additional Past Surgical History / Comment(s): lap band/later removed, gastric sleeve, colon resection for diverticulitis, rt knee replacement, "stent in nose- from fx nose", rt thumb- tendon surgery, Past Anesthesia/Blood Transfusion Reactions: Previous Problems w/ Anesthesia Additional Past Anesthesia/Blood Transfusion Reaction / Comment(s): spray used to numb throat-had anaphylaxis(does not know name). slow to wake up Past Psychological History: Anxiety, Depression, PTSD Smoking Status: Never smoker Past Alcohol Use History: None Reported Past Drug Use History: None Reported - Past Family History Father Family Medical History: Cancer Additional Family Medical History / Comment(s): . Mother Family Medical History: Coronary Artery Disease (CAD), Dementia, Diabetes Mellitus, Thyroid Disorder Additional Family Medical History / Comment(s): diverticulitis, Sister(s) Family Medical History: Cancer General Exam Limitations: no limitations General appearance: alert, in no apparent distress, other (Physical well- developed, well-nourished adult female patient in no acute distress. Vital signs upon presentation are temperature 98.0F, pulse 81, respirations 18, blood pressure 149/88, pulse ox 98% on room air.) Eye exam: Present: normal appearance, PERRL, EOMI. Absent: scleral icterus, conjunctival injection, periorbital swelling ENT exam: Present: normal exam, normal oropharynx, mucous membranes moist Respiratory exam: Present: normal lung sounds bilaterally. Absent: respiratory distress, wheezes, rales, rhonchi, stridor Cardiovascular Exam: Present: regular rate, normal rhythm, normal heart sounds. Absent: systolic murmur, diastolic murmur, rubs, gallop, clicks GI/Abdominal exam: Present: soft, tenderness (Right-sided abdominal tenderness), normal bowel sounds. Absent: distended, guarding, rebound, rigid Neurological exam: Present: alert, oriented X3, CN II-XII intact Psychiatric exam: Present: normal affect, normal mood Skin exam: Present: warm, dry, intact, normal color. Absent: rash Course Vital Signs 06/06/19 06/06/19 06/07/19 18:03 21:32 00:15 Temperature 98.0 F Pulse Rate 81 76 71 Respiratory 18 18 19 Rate Blood Pressure 149/88 136/79 146/81 O2 Sat by Pulse 98 99 98 Oximetry Medical Decision Making - Medical Decision Making 64-year-old female patient presents to the emergency department today for e valuation of right-sided abdominal pain and constipation for the last 2 weeks. Physical examination reveals some mild right-sided tenderness. Vital signs are within normal ranges. Labs reviewed and are unremarkable. KUB x-ray of the abdomen showed greater than normal stool burden that overall nonobstructive bowel gas pattern. Patient is a history of bowel obstruction and with the pain we did perform CT of the abdomen and pelvis which showed a rectal stool burden. No other abnormalities. Did discuss findings and results with the patient. She was given a milk and molasses enema. She did have a bowel movement with this. She'll be discharged home to follow-up with her primary care physician for recheck in 1-2 days. She has appointment with her surgeon Dr. Monahan on Sunday. Return parameters were discussed in detail. She verbalizes understanding and agrees with this plan. - Lab Data Result diagrams: 06/06/19 18:28 06/06/19 18:28 Lab Results 06/06/19 06/06/19 06/06/19 Range/Units 18:28 18:28 18:28 WBC 9.0 (3.8-10.6) k/uL RBC 5.53 H (3.80-5.40) m/uL Hgb 15.9 (11.4-16.0) gm/dL Hct 49.2 H (34.0-46.0) % MCV 89.0 (80.0-100.0) fL MCH 28.8 (25.0-35.0) pg MCHC 32.4 (31.0-37.0) g/dL RDW 13.6 (11.5-15.5) % Plt Count 264 (150-450) k/uL Neutrophils % 66 % Lymphocytes % 24 % Monocytes % 5 % Eosinophils % 2 % Basophils % 1 % Neutrophils # 5.9 (1.3-7.7) k/uL Lymphocytes # 2.2 (1.0-4.8) k/uL Monocytes # 0.5 (0-1.0) k/uL Eosinophils # 0.2 (0-0.7) k/uL Basophils # 0.1 (0-0.2) k/uL PT 9.4 (9.0-12.0) sec INR 0.8 (<1.2) APTT 24.8 (22.0-30.0) sec Sodium 137 (137-145) mmol/L Potassium 4.6 (3.5-5.1) mmol/L Chloride 102 (98-107) mmol/L Carbon Dioxide 16 L (22-30) mmol/L Anion Gap 19 mmol/L BUN 16 (7-17) mg/dL Creatinine 0.83 (0.52-1.04) mg/dL Est GFR (CKD-EPI)AfAm 87 (>60 ml/min/1.73 sqM) Est GFR (CKD-EPI)NonAf 75 (>60 ml/min/1.73 sqM) Glucose 283 H (74-99) mg/dL Calcium 10.5 H (8.4-10.2) mg/dL Total Bilirubin 0.8 (0.2-1.3) mg/dL AST 26 (14-36) U/L ALT 19 (9-52) U/L Alkaline Phosphatase 265 H (38-126) U/L Troponin I (0.000-0.034) ng/mL Total Protein 8.2 (6.3-8.2) g/dL Albumin 4.6 (3.5-5.0) g/dL Lipase (23-300) U/L Urine Color Urine Appearance (Clear) Urine pH (5.0-8.0) Ur Specific [place] (1.001-1.035) Urine Protein (Negative) Urine Glucose (UA) (Negative) Urine Ketones (Negative) Urine Blood (Negative) Urine Nitrite (Negative) Urine Bilirubin (Negative) Urine Urobilinogen (<2.0) mg/dL Ur Leukocyte Esterase (Negative) Urine RBC (0-5) /hpf Urine WBC (0-5) /hpf Ur Squamous Epith Cells (0-4) /hpf Hyaline Casts (0-2) /lpf Urine Mucus (None) /hpf 06/06/19 06/06/19 06/06/19 Range/Units 18:28 18:28 21:43 WBC (3.8-10.6) k/uL RBC (3.80-5.40) m/uL Hgb (11.4-16.0) gm/dL Hct (34.0-46.0) % MCV (80.0-100.0) fL MCH (25.0-35.0) pg MCHC (31.0-37.0) g/dL RDW (11.5-15.5) % Plt Count (150-450) k/uL Neutrophils % % Lymphocytes % % Monocytes % % Eosinophils % % Basophils % % Neutrophils # (1.3-7.7) k/uL Lymphocytes # (1.0-4.8) k/uL Monocytes # (0-1.0) k/uL Eosinophils # (0-0.7) k/uL Basophils # (0-0.2) k/uL PT (9.0-12.0) sec INR (<1.2) APTT (22.0-30.0) sec Sodium (137-145) mmol/L Potassium (3.5-5.1) mmol/L Chloride (98-107) mmol/L Carbon Dioxide (22-30) mmol/L Anion Gap mmol/L BUN (7-17) mg/dL Creatinine (0.52-1.04) mg/dL Est GFR (CKD-EPI)AfAm (>60 ml/min/1.73 sqM) Est GFR (CKD-EPI)NonAf (>60 ml/min/1.73 sqM) Glucose (74-99) mg/dL Calcium (8.4-10.2) mg/dL Total Bilirubin (0.2-1.3) mg/dL AST (14-36) U/L ALT (9-52) U/L Alkaline Phosphatase (38-126) U/L Troponin I <0.012 (0.000-0.034) ng/mL Total Protein (6.3-8.2) g/dL Albumin (3.5-5.0) g/dL Lipase 119 (23-300) U/L Urine Color Light Yellow Urine Appearance Clear (Clear) Urine pH 5.0 (5.0-8.0) Ur Specific [place] 1.026 (1.001-1.035) Urine Protein Negative (Negative) Urine Glucose (UA) 4+ H (Negative) Urine Ketones 3+ H (Negative) Urine Blood Negative (Negative) Urine Nitrite Negative (Negative) Urine Bilirubin Negative (Negative) Urine Urobilinogen <2.0 (<2.0) mg/dL Ur Leukocyte Esterase Moderate H (Negative) Urine RBC 2 (0-5) /hpf Urine WBC 14 H (0-5) /hpf Ur Squamous Epith Cells 3 (0-4) /hpf Hyaline Casts 4 H (0-2) /lpf Urine Mucus Rare H (None) /hpf - Radiology Data Radiology results: report reviewed, image reviewed CT of the pelvis is obtained. Report was reviewed in its entirety. Impression by Dr. Mike shows no evidence of bowel obstruction. Diverticulosis. Postsurgical changes as outlined above. Single image of the abdomen is obtained. Report reviewed in its entirety. Impression by Dr. Love shows overall nonobstructive bowel gas pattern. Greater than average stool burden. Disposition Clinical Impression: Abdominal pain Disposition: HOME SELF-CARE Condition: Good Instructions (If sedation given, give patient instructions): Constipation (ED), Abdominal Pain (ED) Additional Instructions: Increase fluids. Follow-up with Dr. Monahan on Sunday as you have planned. Return to the emergency department for any new, worsening, or concerning symptoms. Is patient prescribed a controlled substance at d/c from ED?: No Referrals: Kevyn Luciano DO [Primary Care Provider] - 1-2 days Time of Disposition: 00:36
[2019-06-06 23:10] LABS: Appearance,Urine Clear (Clear); Bilirubin,Urine Negative (Negative); Blood,Urine Negative (Negative); Color,Urine Light Yellow; Glucose,Urine (UA) 4+ (Negative); Hyaline Casts,Urine 4 /lpf (0-2); Leukocyte Esterase,Urine Moderate (Negative); Mucus,Urine Rare /hpf; Nitrite,Urine Negative (Negative); Protein,Urine Negative (Negative); RBC,Urine 2 /hpf (0-5); Specific Gravity,Urine 1.026 (1.001-1.035); Squamous Epithelial Cell,Urine 3 /hpf (0-4); Urobilinogen,Urine <2.0 mg/dL (<2.0); WBC,Urine 14 /hpf (0-5)
[2019-06-06 23:13] LABS: Ketones,Urine 3+ (Negative)
--- NOTE | 2019-06-06 23:33 | CT ---
EXAM: CT Abdomen and Pelvis With Intravenous Contrast CLINICAL HISTORY: Abdominal distention and pain. Evaluate for bowel obstruction. TECHNIQUE: Axial computed tomography images of the abdomen and pelvis with intravenous contrast. CTDI is 17.5 mGy and DLP is 835 mGy-cm. This CT exam was performed using one or more of the following dose reduction techniques: automated exposure control, adjustment of the mA and/or kV according to patient size, and/or use of iterative reconstruction technique. COMPARISON: 09/26/2018. FINDINGS: Lung bases: Minimal subsegmental atelectasis at the lung bases, left lung more so than the right lung. Mediastinum: Moderate sized hiatal hernia is noted. ABDOMEN: Liver: Mild fatty infiltration of the liver. Gallbladder and bile ducts: Unremarkable. No calcified stones. No ductal dilation. Pancreas: Unremarkable. No mass. No ductal dilation. Spleen: Unremarkable. No splenomegaly. Adrenals: Unremarkable. No mass. Kidneys and ureters: Minimal stranding in the perinephric spaces noted bilaterally without hydronephrosis. This is a nonspecific finding which requires clinical correlation. Similar findings were noted on the previous study. Stomach and bowel: Again there is evidence of bariatric surgery Nonspecific bowel gas pattern Mild diverticulosis without diverticulitis. The patient is status post hysterectomy. The rectum is mildly distended with stool measuring 5.6 x 4.87 m in the axial plane. Postsurgical changes of the mid sigmoid colon are again noted. PELVIS: Appendix: No findings to suggest acute appendicitis. Bladder: Bladder is grossly unremarkable. Reproductive: See above. ABDOMEN and PELVIS: Intraperitoneal space: Unremarkable. No free air. No significant fluid collection. Bones/joints: Moderate degenerative disc disease of the spinal column is noted. Mild osteoarthritic changes about the sacroiliac joints are noted. No acute fracture. No dislocation. Soft tissues: Post ventral hernia repair changes are noted, similar to the previous study. Vasculature: Unremarkable. No abdominal aortic aneurysm. Lymph nodes: Unremarkable. No enlarged lymph nodes. IMPRESSION: No evidence of bowel obstruction. Diverticulosis. Postsurgical changes as outlined above.
--- NOTE | 2019-06-06 23:54 | XR ---
EXAMINATION TYPE: XR KUB DATE OF EXAM: 06/06/2019 7:57 PM CLINICAL HISTORY: Abdominal pain, constipation TECHNIQUE: Single upright KUB image of the abdomen is obtained. COMPARISON: None. FINDINGS: Scattered gas is seen in non-distended small bowel loops. Gas and fecal material is seen in non-distended colon, stool burden is greater in the normal. There is no visceromegaly, pneumoperiton eum, or abnormal calcification appreciated. Hernia mesh coils present. The lung bases are clear and t he osseous structures are intact. IMPRESSION: Overall nonobstructive bowel gas pattern. Greater than average stool burden.
[2019-06-07 00:16] VITALS: BP 146/81; PULSE 71; RESP 19
== END 2019-06-07 00:50 | disposition home or self-care (01) ==
LOC: EC 17:56
DX: R10.9 Unspecified abdominal pain (principal); R11.0 Nausea; R50.9 Fever, unspecified; K57.90 Diverticulosis of intestine, part unspecified, without perforation or abscess without bleeding; E11.9 Type 2 diabetes mellitus without complications; E78.5 Hyperlipidemia, unspecified; F41.9 Anxiety disorder, unspecified; F32.9 Major depressive disorder, single episode, unspecified; F43.10 Post-traumatic stress disorder, unspecified; G47.30 Sleep apnea, unspecified; Z79.4 Long term (current) use of insulin; Z79.899 Other long term (current) drug therapy; Z88.1 Allergy status to other antibiotic agents; Z88.2 Allergy status to sulfonamides; Z88.5 Allergy status to narcotic agent; Z88.8 Allergy status to other drugs, medicaments and biological substances; Z98.84 Bariatric surgery status; Z96.651 Presence of right artificial knee joint; Z85.43 Personal history of malignant neoplasm of ovary; Z86.73 Personal history of transient ischemic attack (TIA), and cerebral infarction without residual deficits; Z90.49 Acquired absence of other specified parts of digestive tract; Z90.89 Acquired absence of other organs
CPT/HCPCS: 36415; 93005; 80053; 83690; 84484; 85025; 85610; 85730; 81001; 74018; 74177; 99284; Q9967

== ENCOUNTER 2019-06-08 13:21 | Inpatient (IN) | payer MEDICARE ==
[2019-06-08] MEDS ORDERED: SODIUM CHLORIDE 0.9% 1,000 ML IV STA (14:01)
[2019-06-08] MEDS ORDERED: MORPHINE SULFATE 4 MG/ML SYRINGE IV STA (14:03)
--- NOTE | 2019-06-08 14:08 | ED ---
General Adult HPI - General Chief complaint: Syncope Stated complaint: syncope Time Seen by Provider: 06/08/19 13:34 Source: patient, family, RN notes reviewed Mode of arrival: ambulatory Limitations: no limitations - History of Present Illness Initial comments: Patient is a pleasant 6 he 4-year-old female presenting to the emergency Department with complaints of syncopal episode. Patient was walking out of her room after showering and felt lightheaded. Patient did lose consciousness for approximately 2 minutes. Patient did feel somewhat lightheaded beforehand and feels a little bit lightheaded still. No confusion. No weakness or isolated area of weakness. Patient does have some abdominal discomfort, more right lower abdomen. Patient was recently hospitalized for constipation. Patient did have 3 large bowel movements following that. This was approximately 2 weeks ago. No fevers. No chest pain. No dyspnea. - Related Data Home Medications Medication Instructions Recorded Confirmed INSULIN ASPART (NovoLOG) [NovoLOG 15 unit SQ AC-TID 04/20/17 06/08/19 (formulary)] Insulin Glargine [Lantus] 30 unit SQ HS 05/14/19 06/08/19 Allergies Allergy/AdvReac Type Severity Reaction Status Date / Time ampicillin Allergy Rash/Hives Verified 06/08/19 14:01 codeine Allergy Rash/Hives Verified 06/08/19 14:01 erythromycin base Allergy Rash/Hives Verified 06/08/19 14:01 lorazepam [From Ativan] Allergy Unknown Verified 06/08/19 14:01 Sulfa (Sulfonamide Allergy Rash/Hives Verified 06/08/19 14:01 Antibiotics) Review of Systems ROS Statement: Those systems with pertinent positive or pertinent negative responses have been documented in the HPI. ROS Other: All systems not noted in ROS Statement are negative. Constitutional: Denies: fever Eyes: Denies: eye pain ENT: Denies: ear pain Respiratory: Denies: cough, dyspnea Cardiovascular: Denies: chest pain Endocrine: Denies: as per HPI Gastrointestinal: Reports: as per HPI, abdominal pain Genitourinary: Denies: dysuria Musculoskeletal: Denies: back pain Skin: Denies: rash Neurological: Denies: headache, weakness, confusion Past Medical History Past Medical History: Atrial Fibrillation, Asthma, Cancer, Chest Pain / Angina, Heart Failure, COPD, Diabetes Mellitus, Fibromyalgia, GERD/Reflux, Hyperlipidemia, Hypertension, Osteoarthritis (OA), Pneumonia, Rheumatoid Arthritis (RA), Seizure Disorder, Sleep Apnea/CPAP/BIPAP Additional Past Medical History / Comment(s): mult TIA-no effects, last seizure 1 yr ago, migraines, irregular heartbeat, varicose veins, no cpap used, oxygen PRN for migraines, hx ulcer, IBS, gout, UTI's, ovarian cancer, diverticulitis History of Any Multi-Drug Resistant Organisms: None Reported Past Surgical History: Appendectomy, Bariatric Surgery, Cholecystectomy, Hernia Repair, Hysterectomy, Joint Replacement, Orthopedic Surgery Additional Past Surgical History / Comment(s): lap band/later removed, gastric sleeve, colon resection for diverticulitis, rt knee replacement, "stent in nose- from fx nose", rt thumb- tendon surgery, Past Anesthesia/Blood Transfusion Reactions: Previous Problems w/ Anesthesia Additional Past Anesthesia/Blood Transfusion Reaction / Comment(s): spray used to numb throat-had anaphylaxis(does not know name). slow to wake up Past Psychological History: Anxiety, Depression, PTSD Smoking Status: Never smoker Past Alcohol Use History: None Reported Past Drug Use History: None Reported - Past Family History Father Family Medical History: Cancer Additional Family Medical History / Comment(s): . Mother Family Medical History: Coronary Artery Disease (CAD), Dementia, Diabetes Mellitus, Thyroid Disorder Additional Family Medical History / Comment(s): diverticulitis, Sister(s) Family Medical History: Cancer General Exam Limitations: no limitations General appearance: alert, in no apparent distress Head exam: Present: atraumatic, normocephalic Eye exam: Present: normal appearance, PERRL, EOMI ENT exam: Present: normal oropharynx Neck exam: Present: normal inspection Respiratory exam: Present: normal lung sounds bilaterally. Absent: chest wall tenderness Cardiovascular Exam: Present: regular rate, normal rhythm Expanded Peripheral pulses: 2+: Radial (R), Radial (L), Dorsalis Pedis (R), Dorsalis Pedis (L) GI/Abdominal exam: Present: soft, tenderness (Mild epigastric tenderness. Moderate tenderness suprapubic and right lower quadrant), normal bowel sounds. Absent: distended, guarding, rebound, rigid, pulsatile mass Extremities exam: Present: normal inspection Back exam: Present: normal inspection Neurological exam: Present: alert, CN II-XII intact. Absent: motor sensory de ficit Expanded Neurological exam: Present: protecting the airway Speech: Present: fluid speech Cranial nerves: EOM's Intact: Normal Motor strength exam: RUE: 5, LUE: 5, RLE: 5, LLE: 5 Eye Response: (4) open spontaneously Motor Response: (6) obeys commands Verbal Response: (5) oriented Psychiatric exam: Present: normal affect, normal mood Skin exam: Present: normal color Course Vital Signs 06/08/19 13:28 Temperature 97.8 F Pulse Rate 96 Respiratory 16 Rate Blood Pressure 112/77 O2 Sat by Pulse 97 Oximetry EKG Findings - EKG Comments: EKG Findings:: Normal sinus rhythm 88. IL 158. QRS 76. QT 354. QTC 428. Left axis. Normal QRS. No acute ST change. Medical Decision Making - Medical Decision Making Patient reevaluated and resting comfortably in bed. Patient and family updated on results and plan. Case was discussed with Dr. Velasquez, covering for Dr. Luciano, who will admit. - Lab Data Result diagrams: 06/08/19 14:18 06/08/19 14:18 Lab Results 06/08/19 06/08/19 06/08/19 Range/Units 14:18 14:18 14:18 WBC 5.2 (3.8-10.6) k/uL RBC 5.58 H (3.80-5.40) m/uL Hgb 15.9 (11.4-16.0) gm/dL Hct 49.7 H (34.0-46.0) % MCV 89.2 (80.0-100.0) fL MCH 28.4 (25.0-35.0) pg MCHC 31.9 (31.0-37.0) g/dL RDW 13.6 (11.5-15.5) % Plt Count 204 (150-450) k/uL Neutrophils % 67 % Lymphocytes % 17 % Monocytes % 9 % Eosinophils % 4 % Basophils % 2 % Neutrophils # 3.5 (1.3-7.7) k/uL Lymphocytes # 0.9 L (1.0-4.8) k/uL Monocytes # 0.5 (0-1.0) k/uL Eosinophils # 0.2 (0-0.7) k/uL Basophils # 0.1 (0-0.2) k/uL PT 9.8 (9.0-12.0) sec INR 0.9 (<1.2) APTT 23.6 (22.0-30.0) sec Sodium 137 (137-145) mmol/L Potassium 4.2 (3.5-5.1) mmol/L Chloride 104 (98-107) mmol/L Carbon Dioxide 22 (22-30) mmol/L Anion Gap 11 mmol/L BUN 11 (7-17) mg/dL Creatinine 0.78 (0.52-1.04) mg/dL Est GFR (CKD-EPI)AfAm >90 (>60 ml/min/1.73 sqM) Est GFR (CKD-EPI)NonAf 81 (>60 ml/min/1.73 sqM) Glucose 397 H (74-99) mg/dL Calcium 9.9 (8.4-10.2) mg/dL Magnesium 2.1 (1.6-2.3) mg/dL Total Bilirubin 0.8 (0.2-1.3) mg/dL AST 18 (14-36) U/L ALT 23 (9-52) U/L Alkaline Phosphatase 208 H (38-126) U/L Troponin I (0.000-0.034) ng/mL Total Protein 6.7 (6.3-8.2) g/dL Albumin 3.7 (3.5-5.0) g/dL 06/08/19 Range/Units 14:18 WBC (3.8-10.6) k/uL RBC (3.80-5.40) m/uL Hgb (11.4-16.0) gm/dL Hct (34.0-46.0) % MCV (80.0-100.0) fL MCH (25.0-35.0) pg MCHC (31.0-37.0) g/dL RDW (11.5-15.5) % Plt Count (150-450) k/uL Neutrophils % % Lymphocytes % % Monocytes % % Eosinophils % % Basophils % % Neutrophils # (1.3-7.7) k/uL Lymphocytes # (1.0-4.8) k/uL Monocytes # (0-1.0) k/uL Eosinophils # (0-0.7) k/uL Basophils # (0-0.2) k/uL PT (9.0-12.0) sec INR (<1.2) APTT (22.0-30.0) sec Sodium (137-145) mmol/L Potassium (3.5-5.1) mmol/L Chloride (98-107) mmol/L Carbon Dioxide (22-30) mmol/L Anion Gap mmol/L BUN (7-17) mg/dL Creatinine (0.52-1.04) mg/dL Est GFR (CKD-EPI)AfAm (>60 ml/min/1.73 sqM) Est GFR (CKD-EPI)NonAf (>60 ml/min/1.73 sqM) Glucose (74-99) mg/dL Calcium (8.4-10.2) mg/dL Magnesium (1.6-2.3) mg/dL Total Bilirubin (0.2-1.3) mg/dL AST (14-36) U/L ALT (9-52) U/L Alkaline Phosphatase (38-126) U/L Troponin I <0.012 (0.000-0.034) ng/mL Total Protein (6.3-8.2) g/dL Albumin (3.5-5.0) g/dL - Radiology Data Radiology results: report reviewed (Computed tomography scan of the brain and computed tomography scan of the abdomen pelvis do not reveal acute abnormality.), image reviewed ( does not show acute abnormality) Disposition Clinical Impression: Syncope Disposition: ADMITTED IP TO THIS [facility] Is patient prescribed a controlled substance at d/c from ED?: No Referrals: Kevyn Luciano DO [Primary Care Provider] - 1-2 days Decision Time: 16:08
[2019-06-08 14:32] LABS: Basophils # (A) 0.1 k/uL (0-0.2); Basophils % (A) 2 %; Eosinophils # (A) 0.2 k/uL (0-0.7); Eosinophils % (A) 4 %; HCT 49.7 % (34.0-46.0); HGB 15.9 gm/dL (11.4-16.0); Lymphocytes # (A) 0.9 k/uL (1.0-4.8); Lymphocytes % (A) 17 %; MCH 28.4 pg (25.0-35.0); MCHC 31.9 g/dL (31.0-37.0); MCV 89.2 fL (80.0-100.0); Mean Platelet Volume 7.9; Monocytes # (A) 0.5 k/uL (0-1.0); Monocytes % (A) 9 %; Neutrophils # (A) 3.5 k/uL (1.3-7.7); Neutrophils % (A) 67 %; Platelet Count 204 k/uL (150-450); RBC 5.58 m/uL (3.80-5.40); RDW 13.6 % (11.5-15.5); WBC 5.2 k/uL (3.8-10.6)
[2019-06-08] MEDS ORDERED: ONDANSETRON 4 MG/2 ML VIAL IVP STA (14:42)
[2019-06-08 14:44] LABS: ALT 23 U/L (9-52); AST 18 U/L (14-36); African American GFR (CKD) >90 (>60 ml/min/1.73 sqM); Albumin 3.7 g/dL (3.5-5.0); Alkaline Phosphatase 208 U/L (38-126); Anion Gap 11 mmol/L; Blood Urea Nitrogen 11 mg/dL (7-17); Calcium 9.9 mg/dL (8.4-10.2); Carbon Dioxide 22 mmol/L (22-30); Chloride 104 mmol/L (98-107); Glucose 397 mg/dL (74-99); Magnesium 2.1 mg/dL (1.6-2.3); Potassium 4.2 mmol/L (3.5-5.1); Sodium 137 mmol/L (137-145); Total Bilirubin 0.8 mg/dL (0.2-1.3); Total Protein 6.7 g/dL (6.3-8.2)
[2019-06-08 14:57] LABS: INR 0.9 (<1.2); Partial Thromboplastin Time 23.6 sec (22.0-30.0); Prothrombin Time 9.8 sec (9.0-12.0)
--- NOTE | 2019-06-08 15:06 | XR ---
EXAMINATION TYPE: XR chest 2V DATE OF EXAM: 06/08/2019 COMPARISON: Chest x-ray May 14, 2019 HISTORY: Syncope and weakness. TECHNIQUE: Frontal and lateral views of the chest are obtained. FINDINGS: Overlying EKG leads are redemonstrated. There is chronic parenchymal change process promin ent left lung base without suspicious new focal air space opacity, pleural effusion, or pneumothorax seen. The cardiac silhouette size remains upper limits of normal. Degenerative changes in spine and shoulders are redemonstrated. IMPRESSION: Chronic changes without acute pulmonary process.
--- NOTE | 2019-06-08 15:44 | CT ---
EXAMINATION TYPE: CT brain wo con DATE OF EXAM: 06/08/2019 HISTORY: Dizziness, Right side abdominal pain. Syncope. CT DLP: 1099.4 mGycm. Automated Exposure Control for Dose Reduction was Utilized. TECHNIQUE: CT scan of the head is performed without contrast. COMPARISON: CT brain April 20, 2017. FINDINGS: There is no acute intracranial hemorrhage or midline shift identified. Ventricles and sul ci are normal in size. There is low-attenuation in the periventricular white matter consistent with chronic small vessel ischemic change. The globes are intact and the visualized sinuses are clear. No suspicious opacification mastoid air cells. IMPRESSION: No acute intracranial hemorrhage or midline shift. There is mild chronic small vessel i schemic change noted. No significant change from prior.
--- NOTE | 2019-06-08 15:49 | CT ---
EXAMINATION TYPE: CT abdomen pelvis w con DATE OF EXAM: 06/08/2019 HISTORY: Dizziness, Right side abdominal pain CT DLP: 886mGycm Automated Exposure Control for Dose Reduction was Utilized. CONTRAST: CT scan of the abdomen and pelvis is performed without oral but with IV Contrast, patient injected wi th 100 mL of Isovue 300. COMPARISON: CT abdomen and pelvis 2 days earlier. FINDINGS: LUNG BASES: No significant abnormality is appreciated. LIVER/GB: Gallbladder not seen and presumed surgically absent similar to prior. PANCREAS: No significant abnormality is seen. SPLEEN: No significant abnormality is seen. ADRENALS: No significant abnormality is seen. KIDNEYS: Mild nonspecific perinephric fat stranding or fluid bilaterally. Differential includes produ ct of chronic medical renal disease. BOWEL: Evaluation of bowel suboptimal secondary to lack of enteric contrast. Surgical changes from ga stric sleeve procedure are redemonstrated. Small to moderate size hiatal hernia again seen. Nearly 3 cm duodenal diverticulum suspected coronal image 40 similar to prior. No suspicious small or large cheryl wel dilatation. Sutures from appendectomy seen at base of cecum. Scattered diverticula throughout the colon are present most prominent left and sigmoid colon. Focal prominence of bowel at site of suture s sigmoid colon left pelvis axial image 80 are noted. UTERUS/ADNEXA: Uterus is surgically absent or markedly atrophic. LYMPH NODES: No greater than 1cm abdominal or pelvic lymph nodes are appreciated. OSSEOUS STRUCTURES: [id number] multilevel spurring. OTHER: No significant additional abnormality is seen. IMPRESSION: No significant new or acute finding is seen to account for patient's clinical symptoms ri ght-sided abdominal pain today.
[2019-06-08] MEDS ORDERED: ONDANSETRON 4 MG/2 ML VIAL IVP PRN (16:10)
[2019-06-08] MEDS ORDERED: MORPHINE SULFATE 4 MG/ML SYRINGE IV PRN (16:10)
[2019-06-08] MEDS ORDERED: NALOXONE 0.4 MG/ML 1 ML VIAL IV PRN (16:10)
[2019-06-08] MEDS ORDERED: SODIUM CHLORIDE 0.9% 1,000 ML IV SCH (16:15)
[2019-06-08 17:05] LABS: Glucose,Whole Blood 254 mg/dL (75-99)
[2019-06-08] MEDS: INSULIN ASPART (NovoLOG) 100 UNIT/ML VIAL SQ SCH ×2 (17:15→20:52)
[2019-06-08 19:35] LABS: Appearance,Urine Clear (Clear); Bacteria,Urine Rare /hpf; Bilirubin,Urine Negative (Negative); Blood,Urine Negative (Negative); Color,Urine Yellow; Glucose,Urine (UA) 4+ (Negative); Leukocyte Esterase,Urine Small (Negative); Mucus,Urine Rare /hpf; Nitrite,Urine Negative (Negative); Protein,Urine Negative (Negative); RBC,Urine 3 /hpf (0-5); Squamous Epithelial Cell,Urine <1 /hpf (0-4); Urobilinogen,Urine <2.0 mg/dL (<2.0); WBC,Urine 2 /hpf (0-5)
[2019-06-08 19:37] LABS: Specific Gravity,Urine >1.050 (1.001-1.035)
[2019-06-08 19:39] LABS: Ketones,Urine 2+ (Negative)
[2019-06-08 20:16] LABS: Glucose,Whole Blood 207 mg/dL (75-99)
[2019-06-08] MEDS: DOCUSATE 100 MG CAP PO SCH (20:51)
[2019-06-08] MEDS: HEPARIN SODIUM,PORCINE 5,000 UNIT/ML 1 ML VIAL SQ SCH (20:51)
[2019-06-08] MEDS: FAMOTIDINE 20 MG TAB PO SCH (20:51)
[2019-06-08] MEDS: INSULIN DETEMIR (LEVEMIR) 100 UNIT/ML SYR SQ SCH (20:52)
--- NOTE | 2019-06-08 21:28 | HP ---
HISTORY AND PHYSICAL REASON FOR ADMISSION: Syncope. HISTORY OF PRESENT ILLNESS: This 64-year-old gentleman with a past medical history of multiple medical problems including history of atrial fibrillation, asthma, CHF, COPD, diabetes, fibromyalgia, GERD, hypertension, hyperlipidemia, history of DJD, history of seizure disorder, rheumatoid arthritis, sleep apnea, bariatric surgery, being followed by Dr. Kevyn Luciano in the outpatient setting, was complaining of syncope. Patient apparently went to the bathroom. The patient lives with her sister and after coming out of the shower, patient passed out, which lasted for 3 to 4 minutes according to her and the patient taken to [facility] and was admitted to the hospital for further evaluation and treatment. Previous tilt-table test was positive in January according to the staff. There is no history of fever, rigors or chills. No history of headache or seizures at this time. The patient is also complaining of abdominal pain. Patient is also severely constipated. PAST MEDICAL HISTORY: History of atrial fibrillation, asthma, chest pain, COPD, diabetes, fibromyalgia, GERD, hypertension, hyperlipidemia, history of rheumatoid arthritis, seizure disorder, appendectomy, bariatric surgery. MEDICATIONS: Home medications are: 1. Lantus 30 units subcu q.h.s. 2. NovoLog 15 units t.i.d. ALLERGIES: AMPICILLIN, CODEINE, ERYTHROMYCIN BASE, ATIVAN, ANTIBIOTICS. FAMILY HISTORY: History of cancer in the family. SOCIAL HISTORY: No history of smoking. No history of alcohol. REVIEW OF SYSTEMS: ENT: No diminished vision. No diminished hearing. CARDIOVASCULAR system: As mentioned earlier. RESPIRATORY: As mentioned earlier. GI as mentioned earlier. no dysuria. CENTRAL NERVOUS SYSTEM: As mentioned earlier. ALLERGY/IMMUNOLOGY: As mentioned earlier. MUSCULOSKELETAL: As mentioned earlier. HEMATOLOGY/ONCOLOGY: No history of anemia. ENDOCRINE: Diabetes. CONSTITUTIONAL: As mentioned earlier. DERMATOLOGY: Negative. RHEUMATOLOGY negative. PSYCHIATRY as mentioned earlier. PHYSICAL EXAMINATION: Alert and oriented x3. Pulse is 68, blood pressure 133/85, respiration 18, temperature 98.2, pulse ox 98% on room air. HEENT: Conjunctivae normal. Oral mucosa moist. NECK is no jugular venous distention. No carotid bruit. No lymph node enlargement. Cardiovascular system: S1, S2 muffled. RESPIRATORY: Breath sounds diminished in the bases. No rhonchi. No crackles. ABDOMEN: Soft, nontender. No mass palpable. LEGS: No edema. No swelling. NERVOUS SYSTEM: Higher functions as mentioned earlier. Moves all 4 limbs. No focal motor or sensory deficits. LYMPHATICS: No lymph nodes palpable in the neck, axillae or groin. SKIN: No ulcer. No rash. No bleeding. JOINTS: No active deforming arthropathy. LABS: WBC 5.2, hemoglobin 15.9, sodium 137, potassium 4.1. Glucose 397, alkaline phosphatase 208. ASSESSMENT: 1. Rule out transient ischemic attack. 2. Syncope for evaluation, possible orthostatic hypotension. 3. Atrial fibrillation. 4. Diabetes mellitus type 2. 5. History of asthma. 6. History of chest pain. 7. History of congestive heart failure. 8. Chronic obstructive pulmonary disease. 9. Fibromyalgia. 10.Gastroesophageal reflux disease. 11.Hypertension. 12.Hyperlipidemia. 13.Degenerative joint disease. 14.Rheumatoid arthritis. 15.Seizure disorder. 16.Sleep apnea. 17.Multiple transient ischemic attacks. 18.History of bariatric surgery. 19.History of cholecystectomy. 20.History of anxiety, depression/PTSD. RECOMMENDATIONS AND DISCUSSION: In this 64-year-old woman who presented with multiple complex medical issues, at this time, I recommend to continue current management. I recommend orthostatic vitals. Monitor the patient closely. Otherwise, symptomatic treatment and cardiology has been consulted. Resume the home medication. Monitor blood sugars closely. Prognosis guarded because of multiple complex medical issues. Dr. Luciano will follow. Dr. Burton will follow tomorrow. MMODL / IJN: [id number] /
[2019-06-09 03:44] LABS: Basophils # (A) 0.1 k/uL (0-0.2); Basophils % (A) 1 %; Eosinophils # (A) 0.2 k/uL (0-0.7); Eosinophils % (A) 4 %; HCT 42.3 % (34.0-46.0); Lymphocytes # (A) 1.3 k/uL (1.0-4.8); Lymphocytes % (A) 20 %; MCH 29.1 pg (25.0-35.0); MCHC 33.1 g/dL (31.0-37.0); MCV 87.9 fL (80.0-100.0); Mean Platelet Volume 8.5; Monocytes # (A) 0.5 k/uL (0-1.0); Monocytes % (A) 7 %; Neutrophils # (A) 4.5 k/uL (1.3-7.7); Neutrophils % (A) 67 %; Platelet Count 162 k/uL (150-450); RBC 4.81 m/uL (3.80-5.40); WBC 6.8 k/uL (3.8-10.6)
[2019-06-09 03:52] LABS: ALT 18 U/L (9-52); AST 26 U/L (14-36); African American GFR (CKD) >90 (>60 ml/min/1.73 sqM); Albumin 3.1 g/dL (3.5-5.0); Alkaline Phosphatase 192 U/L (38-126); Anion Gap 6 mmol/L; Blood Urea Nitrogen 11 mg/dL (7-17); Calcium 9.3 mg/dL (8.4-10.2); Carbon Dioxide 25 mmol/L (22-30); Chloride 106 mmol/L (98-107); Glucose 123 mg/dL (74-99); Potassium 3.6 mmol/L (3.5-5.1); Sodium 137 mmol/L (137-145); Total Bilirubin 0.4 mg/dL (0.2-1.3); Total Protein 5.9 g/dL (6.3-8.2)
[2019-06-09 07:09] LABS: Glucose,Whole Blood 143 mg/dL (75-99)
[2019-06-09] MEDS ORDERED: Potassium Replacement Protocol 1 EACH MISC MISCELLANE PRN (07:44)
[2019-06-09] MEDS ORDERED: SENNOSIDES 8.6 MG TAB PO SCH (09:00)
[2019-06-09] MEDS: HEPARIN SODIUM,PORCINE 5,000 UNIT/ML 1 ML VIAL SQ SCH ×2 (09:23→20:26)
[2019-06-09] MEDS: DOCUSATE 100 MG CAP PO SCH ×2 (09:23→20:25)
[2019-06-09] MEDS: SODIUM CHLORIDE 0.9% 1,000 ML IV SCH ×2 (09:23→20:21)
[2019-06-09] MEDS: FAMOTIDINE 20 MG TAB PO SCH ×2 (09:23→20:25)
[2019-06-09] MEDS: INSULIN ASPART (NovoLOG) 100 UNIT/ML VIAL SQ SCH ×7 (09:29→20:26)
--- NOTE | 2019-06-09 09:40 | P.CRDCN ---
History of Present Illness History of present illness: This is a pleasant 64-year-old female past medical history significant for orthostatic hypotension, dyslipidemia and diabetes mellitus. She follows in the office with Dr. Londono. We have been asked to see her in consultation secondary to a syncopal episode. In January 2019 she underwent a tilt table test revealing orthostatic hypotension. She underwent a stress test in the office February 2019 was negative for reversible cardiac ischemia. In 2016 she underwent a cardiac catheterization revealing normal coronary arteries with no obstructive disease. Most recent echocardiogram obtained January 2019 reveals preserved LV systolic function with ejection fraction 55-60%. She presented to the hospital after a syncopal episode yesterday. She states she woke up in her normal state of health took a shower and was walking to the living room when she started feeling acutely dizzy. She states it felt like the room was spinning and in her words "I felt dehydrated". Next thing she remembers she woke up on the floor. Her sister was present during this episode and the patient states she did have positive loss of consciousness. She denies having any chest discomfort, shortness of breath, nausea, vomiting or diaphoresis prior to this episode. When she woke up she continued to feel dizzy and had no other symptoms. Upon arrival to the emergency department her symptoms had subsided. EKG reveals sinus mechanism with minimal ST changes in the high lateral leads consistent with previous EKGs. Telemetry tracings unremarkable, No acute arrhythmias noted. Laboratory data reviewed, CBC unremarkable, sodium 137, potassium 3.6, creatinine 0.58, cardiac enzymes negative 3, alkaline phosphate 192, Chest x-ray is negative for an acute cardiopulmonary process with evidence of chronic parenchymal changes. CT of the brain is negative for an acute intracranial hemorrhage or midline shift, mild chronic small vessel ischemic changes noted. CT of the abdomen and pelvis obtained is negative for an acute finding. At the time of my exam: CONSTITUTIONAL: Denies fever. Denies chills. EYES: Denies blurred vision. Denies vision changes. Denies eye pain. EARS, NOSE, MOUTH & THROAT: Denies headache. Denies sore throat. Denies ear pain. CARDIOVASCULAR: Denies chest pain. Denies shortness of breath. Denies orthopnea. Denies PND. Denies palpitations. RESPIRATORY: Denies cough. GASTROINTESTINAL: Denies abdominal pain. Denies diarrhea. Denies constipation. Denies nausea. Denies vomiting. MUSCULOSKELETAL: Denies myalgias. INTEGUMENTARY: Denies pruitis. Denies rash. NEUROLOGIC: Denies numbness. Denies tingling. Denies weakness. PSYCHIATRIC: Denies anxiety. Denies depression. ENDOCRINE: Denies fatigue. Denies weight change. Denies polydipsia. Denies polyurina. GENITOURINARY: Denies burning, hematuria or urgency with micturation. HEMATOLOGIC: Denies history of anemia. Denies bleeding. Blood pressure supine 107/71, sitting 113/75 and standing 89/65. GENERAL: This is a 64-year-old occasion female in no apparent distress at the time of my examination. HEENT: Head is atraumatic, normocephalic. Pupils are equal, round. Sclerae anicteric. Conjunctivae are clear. Mucous membranes of the mouth are moist. Neck is supple. There is no jugular venous distention. No carotid bruit is heard. LUNGS: Clear to auscultation no wheezes, rales or rhonchi. No chest wall tenderness is noted on palpation or with deep breathing. HEART: Regular rate and rhythm without murmurs, rubs or gallops. S1 and S2 heard. ABDOMEN: Soft, nontender. Bowel sounds are heard. No organomegaly noted. EXTREMITIES: No evidence of peripheral edema and no calf tenderness noted. VASCULAR: Radial and dorsalis pedis pulses palpated, no evidence of clubbing. NEUROLOGIC: Patient is awake, alert and oriented x3. ASSESSMENT Syncope with positive LOC Orthostatic hypotension Diabetes mellitus Dyslipidemia PLAN An acute coronary event has been ruled out. Check d-dimer. Will request orthostatic vital signs every shift. Gently hydrate with 0.9% NS at 100 cc/hr. Advised her to wear compression stockings and sit at the edge of the bed for a minute before standing. Also discussed increased salt intake. Continue to monitor on telemetry for another 24 hrs for any signs of arrhythmia. Initiate of atorvastatin 40 mg daily secondary to diabetes mellitus. Thank you kindly for this consultation. Nurse Practitioner note has been reviewed, I agree with a documented findings and plan of care. Patient was seen and examined. Past Medical History Past Medical History: Atrial Fibrillation, Asthma, Cancer, Chest Pain / Angina, Heart Failure, COPD, Diabetes Mellitus, Fibromyalgia, GERD/Reflux, Hyperlipidemia, Hypertension, Osteoarthritis (OA), Pneumonia, Rheumatoid Arthritis (RA), Seizure Disorder, Sleep Apnea/CPAP/BIPAP Additional Past Medical History / Comment(s): mult TIA-no effects, last seizure 1 yr ago, migraines, irregular heartbeat, varicose veins, no cpap used, oxygen PRN for migraines, hx ulcer, IBS, gout, UTI's, ovarian cancer, diverticulitis History of Any Multi-Drug Resistant Organisms: None Reported Past Surgical History: Appendectomy, Bariatric Surgery, Cholecystectomy, Hernia Repair, Hysterectomy, Joint Replacement, Orthopedic Surgery Additional Past Surgical History / Comment(s): lap band/later removed, gastric sleeve, colon resection for diverticulitis, rt knee replacement, "stent in nose- from fx nose", rt thumb- tendon surgery, Past Anesthesia/Blood Transfusion Reactions: Previous Problems w/ Anesthesia Additional Past Anesthesia/Blood Transfusion Reaction / Comment(s): spray used to numb throat-had anaphylaxis(does not know name). slow to wake up Past Psychological History: Anxiety, Depression, PTSD Additional Psychological History / Comment(s): . Smoking Status: Never smoker Past Alcohol Use History: None Reported Past Drug Use History: None Reported - Past Family History Father Family Medical History: Cancer Additional Family Medical History / Comment(s): . Mother Family Medical History: Coronary Artery Disease (CAD), Dementia, Diabetes Mellitus, Thyroid Disorder Additional Family Medical History / Comment(s): diverticulitis, Sister(s) Family Medical History: Cancer Medications and Allergies Home Medications Medication Instructions Recorded Confirmed Type INSULIN ASPART (NovoLOG) [NovoLOG 15 unit SQ AC-TID 04/20/17 06/08/19 History (formulary)] Insulin Glargine [Lantus] 30 unit SQ HS 05/14/19 06/08/19 History Allergies Allergy/AdvReac Type Severity Reaction Status Date / Time ampicillin Allergy Rash/Hives Verified 06/08/19 14:01 codeine Allergy Rash/Hives Verified 06/08/19 14:01 erythromycin base Allergy Rash/Hives Verified 06/08/19 14:01 lorazepam [From Ativan] Allergy Unknown Verified 06/08/19 14:01 Sulfa (Sulfonamide Allergy Rash/Hives Verified 06/08/19 14:01 Antibiotics) Physical Exam Vitals: Vital Signs Temp Pulse Pulse Pulse Pulse Pulse Resp 06/09/19 04:00 98.3 F 66 18 06/09/19 03:34 67 18 06/08/19 23:51 70 18 06/08/19 23:27 98.2 F 70 18 06/08/19 20:00 68 112 H 94 74 18 06/08/19 18:50 112 H 94 74 06/08/19 16:53 98.2 F 68 18 06/08/19 16:37 67 16 06/08/19 13:28 97.8 F 96 16 BP BP BP BP BP Pulse Ox 06/09/19 04:00 114/67 95 06/09/19 03:34 06/08/19 23:51 06/08/19 23:27 104/56 95 06/08/19 20:00 06/08/19 18:50 108/75 107/68 107/67 06/08/19 16:53 133/85 99 06/08/19 16:37 138/73 97 06/08/19 13:28 112/77 97 Intake and Output 06/08/19 06/09/19 06/09/19 22:59 06:59 14:59 Other: # Voids 1 0 Results 06/09/19 03:09 06/09/19 03:19 Cardiac Enzymes 06/08/19 06/08/19 06/08/19 Range/Units 14:18 14:18 19:51 AST 18 (14-36) U/L Troponin I <0.012 <0.012 (0.000-0.034) ng/mL 06/09/19 06/09/19 Range/Units 03:19 03:19 AST 26 (14-36) U/L Troponin I <0.012 (0.000-0.034) ng/mL Coagulation 06/08/19 Range/Units 14:18 PT 9.8 (9.0-12.0) sec APTT 23.6 (22.0-30.0) sec CBC 06/08/19 06/09/19 Range/Units 14:18 03:09 WBC 5.2 6.8 (3.8-10.6) k/uL RBC 5.58 H 4.81 (3.80-5.40) m/uL Hgb 15.9 14.0 (11.4-16.0) gm/dL Hct 49.7 H 42.3 (34.0-46.0) % Plt Count 204 162 (150-450) k/uL Comprehensive Metabolic Panel 06/08/19 06/09/19 Range/Units 14:18 03:19 Sodium 137 137 (137-145) mmol/L Potassium 4.2 3.6 (3.5-5.1) mmol/L Chloride 104 106 (98-107) mmol/L Carbon Dioxide 22 25 (22-30) mmol/L BUN 11 11 (7-17) mg/dL Creatinine 0.78 0.58 (0.52-1.04) mg/dL Glucose 397 H 123 H (74-99) mg/dL Calcium 9.9 9.3 (8.4-10.2) mg/dL AST 18 26 (14-36) U/L ALT 23 18 (9-52) U/L Alkaline Phosphatase 208 H 192 H (38-126) U/L Total Protein 6.7 5.9 L (6.3-8.2) g/dL Albumin 3.7 3.1 L (3.5-5.0) g/dL Current Medications Generic Name Dose Route Start Last Admin Trade Name Freq PRN Reason Stop Dose Admin Acetaminophen 500 mg 06/08/19 18:50 Tylenol Tab PO Q6HR PRN Fever and/ or Pain Docusate Sodium 100 mg 06/08/19 21:00 06/08/19 20:51 Colace PO 100 mg BID KERRIE Administration Famotidine 20 mg 06/08/19 21:00 06/08/19 20:51 Pepcid PO 20 mg BID KERRIE Administration Heparin Sodium (Porcine) 5,000 unit 06/08/19 21:00 06/08/19 20:51 Heparin SQ 5,000 unit Q12HR KERRIE Administration Sodium Chloride 1,000 mls @ 20 mls/hr 06/08/19 16:15 06/08/19 17:17 Saline 0.9% IV Not Given .Q24H KERRIE Insulin Aspart 15 unit 06/08/19 17:30 06/08/19 17:15 Novolog SQ 15 unit AC-TID KERRIE Administration Insulin Aspart 0 unit 06/08/19 21:00 06/08/19 20:52 Novolog SQ 3 unit ACHS KERRIE Administration Protocol Insulin Detemir 30 unit 06/08/19 21:00 06/08/19 20:52 Levemir SQ 30 unit HS KERRIE Administration Miscellaneous Information 1 each 06/09/19 07:44 Potassium Per Protocol MISCELLANE DAILY PRN Per Protocol Protocol Morphine Sulfate 4 mg 06/08/19 16:10 Morphine Sulfate (Inj) IV Q4HR PRN Severe Pain Naloxone HCl 0.2 mg 06/08/19 16:10 Narcan IV Q2M PRN Opioid Reversal Ondansetron HCl 4 mg 06/08/19 16:10 Zofran IVP Q8HR PRN Nausea And Vomiting Senna 8.6 mg 06/09/19 09:00 Senokot PO DAILY KERRIE Intake and Output 06/08/19 06/09/19 06/09/19 22:59 06:59 14:59 Other: # Voids 1 0 06/09/19 03:09 06/09/19 03:19
[2019-06-09 11:59] LABS: Glucose,Whole Blood 195 mg/dL (75-99)
[2019-06-09] MEDS: PSYLLIUM HUSK 100% 6 GM PACKET PO SCH (12:17)
[2019-06-09] MEDS: POLYETHYLENE GLYCOL 3350 17 GM POWD.PACK PO SCH (15:51)
[2019-06-09 17:04] LABS: Glucose,Whole Blood 123 mg/dL (75-99)
[2019-06-09 20:02] LABS: Glucose,Whole Blood 195 mg/dL (75-99)
[2019-06-09] MEDS: ATORVASTATIN 40 MG TAB PO SCH (20:25)
[2019-06-09] MEDS: SENNOSIDES-DOCUSATE SODIUM 1 EACH TAB PO SCH (20:25)
[2019-06-09] MEDS: INSULIN DETEMIR (LEVEMIR) 100 UNIT/ML SYR SQ SCH (20:26)
--- NOTE | 2019-06-09 22:39 | P.PN ---
Subjective Progress Note Date: 06/09/19 This is a pleasant 64-year-old white female is admitted to the emergency department into observation. She initially complained of left-sided chest pain radiating to her left neck and jaw. And she also complains of the left lower abdominal pain that radiates up to her chest. She currently is comfortable in bed without any complaints and awaiting cardiology evaluation. Objective - Vital Signs Vital signs: Vital Signs Temp 98.4 F 06/09/19 16:00 Pulse 73 06/09/19 19:50 Resp 18 06/09/19 19:50 BP 112/73 06/09/19 19:39 Pulse Ox 98 06/09/19 19:39 Intake & Output 06/09/19 06/09/19 06/10/19 06:59 18:59 06:59 Intake Total 500 Balance 500 Intake: Intake, IV Titration 500 Amount Sodium Chloride 0.9% 1, 500 000 ml @ 100 mls/hr IV . Q10H KERRIE Rx#:[id number] Other: # Voids 0 2 - Exam GENERAL: This is a -64 year-old in no apparent distress at the time of examination. Pleasant and cooperative. HEENT: Head is atraumatic, normocephalic. Pupils are equal, round, and reactive to light. Sclerae anicteric. Conjunctivae are clear. Mucus membranes of the mouth are moist. Neck is supple. RESPIRATORY: Clear to auscultation. No wheezes, rales, or rhonchi. No use of accessory muscles. Patient maintaining oxygen saturation greater than 92%. No chest wall tenderness is noted on palpation or with deep breathing. CARDIOVASCULAR: Regular rate and rhythm. S1 and S2 noted. No systolic or diastolic murmur auscultated. No JVD noted. No S3 or S4 noted. GASTROINTESTINAL: No distention noted. Abdomen soft and round. Normal active bowel sounds auscultated x 4 quadrants. No pain or tenderness noted upon palpation. INTEGUMENTARY: No cyanosis. No jaundice. No rashes noted. No cellulitis noted. EXTREMITIES: 2+ peripheral pulses. No evidence of peripheral edema. No calf tenderness noted. NEUROLOGIC: Cranial nerves II-XII intact. PSYCHIATRIC: Awake, alert, and oriented X 3. Appropriate affect. Intact judgement and insight. - Labs CBC & Chem 7: 06/09/19 03:06/09/19 03:19 Labs: Abnormal Lab Results - Last 24 Hours (Table) 06/09/19 06/09/19 06/09/19 Range/Units 03:19 07:08 11:58 Glucose 123 H (74-99) mg/dL POC Glucose (mg/dL) 143 H 195 H (75-99) mg/dL Alkaline Phosphatase 192 H (38-126) U/L Total Protein 5.9 L (6.3-8.2) g/dL Albumin 3.1 L (3.5-5.0) g/dL 06/09/19 06/09/19 Range/Units 17:02 20:00 Glucose (74-99) mg/dL POC Glucose (mg/dL) 123 H 195 H (75-99) mg/dL Alkaline Phosphatase (38-126) U/L Total Protein (6.3-8.2) g/dL Albumin (3.5-5.0) g/dL Assessment and Plan (1) Abdominal pain Current Visit: No Status: Acute Code(s): R10.9 - UNSPECIFIED ABDOMINAL PAIN SNOMED Code(s): 28102733 (2) Chest pain Current Visit: No Status: Acute Code(s): R07.9 - CHEST PAIN, UNSPECIFIED SNOMED Code(s): 25357398 (3) Symptomatic sinus bradycardia Current Visit: No Status: Acute Code(s): R00.1 - BRADYCARDIA, UNSPECIFIED SNOMED Code(s): 474334288 (4) Diabetes type 2, uncontrolled Current Visit: Yes Status: Acute Code(s): E11.65 - TYPE 2 DIABETES MELLITUS WITH HYPERGLYCEMIA SNOMED Code(s): 448035109 (5) Hypertension Current Visit: Yes Status: Acute Code(s): I10 - ESSENTIAL (PRIMARY) HYPERTENSION SNOMED Code(s): 15286779 Plan: Patient was positive today for a orthostatic hypotension. She'll be evaluated by cardiology. She is underwent recent cardiac testing including heart catheterizations heart stress test and echocardiograms. We'll continue to follow patient's progress throughout her stay serial EKGs monitoring and enzymes and progress.
[2019-06-10 06:50] LABS: Glucose,Whole Blood 113 mg/dL (75-99)
[2019-06-10 07:23] LABS: African American GFR (CKD) >90 (>60 ml/min/1.73 sqM); Anion Gap 7 mmol/L; Blood Urea Nitrogen 9 mg/dL (7-17); Carbon Dioxide 22 mmol/L (22-30); Chloride 111 mmol/L (98-107); Glucose 122 mg/dL (74-99); Potassium 3.6 mmol/L (3.5-5.1); Sodium 140 mmol/L (137-145)
[2019-06-10] MEDS: INSULIN ASPART (NovoLOG) 100 UNIT/ML VIAL SQ SCH ×7 (08:12→21:31)
[2019-06-10] MEDS: SENNOSIDES-DOCUSATE SODIUM 1 EACH TAB PO SCH ×2 (08:42→19:24)
[2019-06-10] MEDS: POLYETHYLENE GLYCOL 3350 17 GM POWD.PACK PO SCH (08:42)
[2019-06-10] MEDS: DOCUSATE 100 MG CAP PO SCH ×2 (08:42→19:24)
[2019-06-10] MEDS: PSYLLIUM HUSK 100% 6 GM PACKET PO SCH (08:43)
[2019-06-10] MEDS: FAMOTIDINE 20 MG TAB PO SCH ×2 (08:43→21:31)
[2019-06-10] MEDS: HEPARIN SODIUM,PORCINE 5,000 UNIT/ML 1 ML VIAL SQ SCH ×2 (08:43→21:31)
--- NOTE | 2019-06-10 09:36 | P.PN ---
Subjective This is a pleasant 64-year-old female past medical history significant for orthostatic hypotension, dyslipidemia and diabetes mellitus. She follows in the office with Dr. Londono. She is seen and examined sitting up in bed in no acute distress. YAN hose are on. She is complaining of lower abdominal discomfort, worse on palpitation. She was given some stool softeners yesterday and states she did have a small bowel movement. Surgery is consulted to see her today. Orthostatic vital signs last night are still positive however improving. She does continue to feel dizzy with positions changes. No syncope, no LOC, no chest pain, shortness of breath or palpitations. Telemetry unremarkable, no acute arrhythmia. Blood pressure this morning 113/71 heart rate 71 afebrile and maintaining oxygen saturation on room air. Laboratory data reviewed, sodium 140, potassium 3.6, creatinine 0.6, d-dimer 0.32. GENERAL: This is a 64-year-old occasion female in no apparent distress at the time of my examination. HEENT: Head is atraumatic, normocephalic. Pupils are equal, round. Sclerae anicteric. Conjunctivae are clear. Mucous membranes of the mouth are moist. Neck is supple. There is no jugular venous distention. No carotid bruit is heard. LUNGS: Clear to auscultation no wheezes, rales or rhonchi. No chest wall tenderness is noted on palpation or with deep breathing. HEART: Regular rate and rhythm without murmurs, rubs or gallops. S1 and S2 heard. EXTREMITIES: No evidence of peripheral edema and no calf tenderness noted. ASSESSMENT Syncope with positive LOC Orthostatic hypotension, improved. Diabetes mellitus Dyslipidemia PLAN Discussed the importance of daily YAN hose, even as home, along with rising slowly and sitting on the edge of the bed for a minute before standing. Ongoing medical management and evaluation of abdominal discomfort/constipation. We will follow as needed, please feel free to call with further questions or concerns. Follow up with Dr. Londono upon discharge. Nurse Practitioner note has been reviewed, I agree with a documented findings and plan of care. Patient was seen and examined. Objective - Vital Signs Vital signs: Vital Signs Temp 98.5 F 06/10/19 08:00 Pulse 71 06/10/19 08:00 Resp 06/10/19 08:00 BP 113/71 06/10/19 08:00 Pulse Ox 96 06/10/19 08:00 Intake & Output 06/09/19 06/10/19 06/10/19 18:59 06:59 18:59 Intake Total 500 500 Balance 500 500 Intake: Intake, IV Titration 500 500 Amount Sodium Chloride 0.9% 1, 500 500 000 ml @ 100 mls/hr IV . Q10H KERRIE Rx#:[id number] Other: # Voids 2 1 1 - Labs CBC & Chem 7: 06/09/19 03:09 06/10/19 06:55 Labs: Abnormal Lab Results - Last 24 Hours (Table) 06/09/19 06/09/19 06/09/19 Range/Units 11:58 17:02 20:00 Chloride (98-107) mmol/L Glucose (74-99) mg/dL POC Glucose (mg/dL) 195 H 123 H 195 H (75-99) mg/dL 06/10/19 06/10/19 Range/Units 06:49 06:55 Chloride 111 H (98-107) mmol/L Glucose 122 H (74-99) mg/dL POC Glucose (mg/dL) 113 H (75-99) mg/dL
[2019-06-10] MEDS ORDERED: SODIUM CHLORIDE 0.9% 1,000 ML IV SCH (09:45)
[2019-06-10 12:01] LABS: Glucose,Whole Blood 147 mg/dL (75-99)
[2019-06-10] MEDS ORDERED: LACTULOSE 20 GM/30 ML CUP PO ONE (12:30)
[2019-06-10] MEDS: SODIUM CHLORIDE 0.9% 1,000 ML IV SCH (12:47)
[2019-06-10] MEDS: ACETAMINOPHEN TAB 500 MG TAB PO PRN (13:12)
--- NOTE | 2019-06-10 14:20 | P.GSCN ---
History of Present Illness Consult date: 06/10/19 Reason for Consult: abdominal pain Requesting physician: Farzana Golden History of present illness: CHIEF COMPLAINT: abdominal pain HISTORY OF PRESENT ILLNESS: 64-year-old female with a history of gastric sleeve and bowel resection who was admitted to hospital secondary to chest pain. She has been evaluated by cardiology. Patient also reported no abdominal pain during auscultation. General surgery was consulted for further evaluation. Patient examined at the bedside. She reports she has been having abdominal pain and problems having bowel movements over the past 4-5 weeks. She reports taking [id number] laxatives occasionally. She was given medications yesterday per internal medicine and has been having bowel movements. She continues to report diffuse abdominal pain. She is tolerating a regular diet. Denies nausea or vomiting. PAST MEDICAL HISTORY: See list. PAST SURGICAL HISTORY: See list. SOCIAL HISTORY: No illicit drug use. REVIEW OF SYSTEMS: CONSTITUTIONAL: Denies fever or chills. HEENT: Denies blurred vision, vision changes, or eye pain. Denies hemoptysis CARDIOVASCULAR: Denies chest pain or pressure. RESPIRATORY: No shortness of breath. GASTROINTESTINAL: Refer to HPI for pertinent findings HEMATOLOGIC: Denies bleeding disorders. GENITOURINARY: Denies any blood in urine. SKIN: Denies pruitis. Denies rash. PHYSICAL EXAM: VITAL SIGNS: Reviewed. GENERAL: Well-developed in no acute distress. HEENT: No sclera icterus. Extraocular movements grossly intact. Moist buccal mucosa. Head is atraumatic, normocephalic. ABDOMEN: Soft. Nondistended. Diffuse abdominal tenderness with palpation. Positive bowel sounds. NEUROLOGIC: Alert and oriented. Cranial nerves II through XII grossly intact. LABORATORY DATA: Most recent laboratory data reveals white count 6.8. Hemoglobin 14.0. Potassium 3.6. IMAGING: CT abdomen and pelvis: No significant new or acute finding is visualized to help her patient's clinical symptoms. Fecal prominence is noted. ASSESSMENT: 1. Abdominal pain, suspect secondary to constipation PLAN: 1. Continue current bowel regimen 2. Lactulose PO 1 dose 3. Due to patient's diffuse abdominal pain, Dr. Monahan would like patient to stay overnight and be reevaluated tomorrow. 4. Anticipate discharge home tomorrow 5. Patient prescribed Senokot and MiraLAX at discharge per internal medicine. Will send prescription for lactulose 30 g daily as needed for constipation. Nurse practitioner note has been reviewed by physician. Signing provider agrees with the documented findings, assessment, and plan of care. Past Medical History Past Medical History: Atrial Fibrillation, Asthma, Cancer, Chest Pain / Angina, Heart Failure, COPD, Diabetes Mellitus, Fibromyalgia, GERD/Reflux, Hyperlipide marlene, Hypertension, Osteoarthritis (OA), Pneumonia, Rheumatoid Arthritis (RA), Seizure Disorder, Sleep Apnea/CPAP/BIPAP Additional Past Medical History / Comment(s): mult TIA-no effects, last seizure 1 yr ago, migraines, irregular heartbeat, varicose veins, no cpap used, oxygen PRN for migraines, hx ulcer, IBS, gout, UTI's, ovarian cancer, diverticulitis History of Any Multi-Drug Resistant Organisms: None Reported Past Surgical History: Appendectomy, Bariatric Surgery, Cholecystectomy, Hernia Repair, Hysterectomy, Joint Replacement, Orthopedic Surgery Additional Past Surgical History / Comment(s): lap band/later removed, gastric sleeve, colon resection for diverticulitis, rt knee replacement, "stent in nose- from fx nose", rt thumb- tendon surgery, Past Anesthesia/Blood Transfusion Reactions: Previous Problems w/ Anesthesia Additional Past Anesthesia/Blood Transfusion Reaction / Comm: spray used to numb throat-had anaphylaxis(does not know name). slow to wake up Past Psychological History: Anxiety, Depression, PTSD Additional Psychological History / Comment(s): . Smoking Status: Never smoker Past Alcohol Use History: None Reported Past Drug Use History: None Reported - Past Family History Father Family Medical History: Cancer Additional Family Medical History / Comment(s): . Mother Family Medical History: Coronary Artery Disease (CAD), Dementia, Diabetes Mellitus, Thyroid Disorder Additional Family Medical History / Comment(s): diverticulitis, Sister(s) Family Medical History: Cancer Medications and Allergies Home Medications Medication Instructions Recorded Confirmed Type INSULIN ASPART (NovoLOG) [NovoLOG 15 unit SQ AC-TID 04/20/17 06/08/19 History (formulary)] Insulin Glargine [Lantus] 30 unit SQ HS 05/14/19 06/08/19 History Atorvastatin [Lipitor] 40 mg PO HS #30 tab 06/09/19 Rx Docusate [Colace] 100 mg PO BID #60 cap 06/09/19 Rx Polyethylene Glycol 3350 [Miralax] 17 gm PO DAILY powd.pack 06/09/19 Rx Sennosides-Docusate Sodium 2 each PO BID tab 06/09/19 Rx [Senokot-S] Allergies Allergy/AdvReac Type Severity Reaction Status Date / Time ampicillin Allergy Rash/Hives Verified 06/08/19 14:01 codeine Allergy Rash/Hives Verified 06/08/19 14:01 erythromycin base Allergy Rash/Hives Verified 06/08/19 14:01 lorazepam [From Ativan] Allergy Unknown Verified 06/08/19 14:01 Sulfa (Sulfonamide Allergy Rash/Hives Verified 06/08/19 14:01 Antibiotics) Surgical - Exam Vital Signs Temp Pulse Resp BP Pulse Ox 97.8 F 96 16 112/77 97 06/08/19 13:28 06/08/19 13:28 06/08/19 13:28 06/08/19 13:28 06/08/19 13:28 Results - Labs 06/09/19 03:09 06/10/19 06:55 Abnormal Lab Results - Last 24 Hours (Table) 06/09/19 06/09/19 06/10/19 Range/Units 17:02 20:00 06:49 Chloride (98-107) mmol/L Glucose (74-99) mg/dL POC Glucose (mg/dL) 123 H 195 H 113 H (75-99) mg/dL 06/10/19 06/10/19 Range/Units 06:55 12:00 Chloride 111 H (98-107) mmol/L Glucose 122 H (74-99) mg/dL POC Glucose (mg/dL) 147 H (75-99) mg/dL Diabetes panel 06/10/19 Range/Units 06:55 Sodium 140 (137-145) mmol/L Potassium 3.6 (3.5-5.1) mmol/L Chloride 111 H (98-107) mmol/L Carbon Dioxide 22 (22-30) mmol/L BUN 9 (7-17) mg/dL Creatinine 0.60 (0.52-1.04) mg/dL Glucose 122 H (74-99) mg/dL Calcium 9.0 (8.4-10.2) mg/dL Calcium panel 06/10/19 Range/Units 06:55 Calcium 9.0 (8.4-10.2) mg/dL Pituitary panel 06/10/19 Range/Units 06:55 Sodium 140 (137-145) mmol/L Potassium 3.6 (3.5-5.1) mmol/L Chloride 111 H (98-107) mmol/L Carbon Dioxide 22 (22-30) mmol/L BUN 9 (7-17) mg/dL Creatinine 0.60 (0.52-1.04) mg/dL Glucose 122 H (74-99) mg/dL Calcium 9.0 (8.4-10.2) mg/dL Adrenal panel 06/10/19 Range/Units 06:55 Sodium 140 (137-145) mmol/L Potassium 3.6 (3.5-5.1) mmol/L Chloride 111 H (98-107) mmol/L Carbon Dioxide 22 (22-30) mmol/L BUN 9 (7-17) mg/dL Creatinine 0.60 (0.52-1.04) mg/dL Glucose 122 H (74-99) mg/dL Calcium 9.0 (8.4-10.2) mg/dL
[2019-06-10 15:44] VITALS: RESP 18
[2019-06-10 16:46] LABS: Glucose,Whole Blood 156 mg/dL (75-99)
[2019-06-10 20:24] LABS: Glucose,Whole Blood 185 mg/dL (75-99)
[2019-06-10] MEDS: INSULIN DETEMIR (LEVEMIR) 100 UNIT/ML SYR SQ SCH (21:31)
[2019-06-10] MEDS: ATORVASTATIN 40 MG TAB PO SCH (21:31)
[2019-06-11 03:54] VITALS: TEMP 98.2
[2019-06-11 06:35] LABS: Glucose,Whole Blood 136 mg/dL (75-99)
[2019-06-11] MEDS: INSULIN ASPART (NovoLOG) 100 UNIT/ML VIAL SQ SCH ×2 (07:22→07:35)
[2019-06-11] MEDS: ACETAMINOPHEN TAB 500 MG TAB PO PRN (07:35)
[2019-06-11] MEDS: HEPARIN SODIUM,PORCINE 5,000 UNIT/ML 1 ML VIAL SQ SCH (07:35)
[2019-06-11] MEDS: PSYLLIUM HUSK 100% 6 GM PACKET PO SCH (07:36)
[2019-06-11] MEDS: FAMOTIDINE 20 MG TAB PO SCH (07:36)
[2019-06-11] MEDS: DOCUSATE 100 MG CAP PO SCH (07:36)
[2019-06-11] MEDS: POLYETHYLENE GLYCOL 3350 17 GM POWD.PACK PO SCH (07:36)
[2019-06-11] MEDS: SENNOSIDES-DOCUSATE SODIUM 1 EACH TAB PO SCH (07:36)
[2019-06-11 07:59] VITALS: BP 126/70; PULSE 64
[2019-06-11 08:37] LABS: African American GFR (CKD) >90 (>60 ml/min/1.73 sqM); Anion Gap 7 mmol/L; Blood Urea Nitrogen 11 mg/dL (7-17); Calcium 9.1 mg/dL (8.4-10.2); Carbon Dioxide 24 mmol/L (22-30); Chloride 109 mmol/L (98-107); Glucose 156 mg/dL (74-99); Potassium 3.7 mmol/L (3.5-5.1); Sodium 140 mmol/L (137-145)
--- NOTE | 2019-06-11 10:49 | P.PN ---
Subjective Progress Note Date: 06/10/19 This is a pleasant 64-year-old white female is admitted to the emergency department into observation. She initially complained of left-sided chest pain radiating to her left neck and jaw. And she also complains of the left lower abdominal pain that radiates up to her chest. She currently is comfortable in bed without any complaints and awaiting cardiology evaluation. 06/10/2019 Wearing thigh-high Teds. Orthostatic hypotension, improving.Mild lightheadedness upon arising.Denies near-syncope, syncope. Ambulating in hallway, tolerating exertion well. Yesterday Senokot S and Metamucil initiated in addition to Colace with positive results. Possible bowel movement. Complained of diffuse abdominal pain later in the afternoon, , general surgery whom patient follows with closely, consulted. Good diet intake, no nausea or vomiting. Telemetry sinus rhythm. VSS. Afebrile. Denies chest pain, palpitations or shortness of breath. Objective - Vital Signs Vital signs: Vital Signs Temp 98.3 F 06/10/19 15:43 Pulse 71 06/10/19 16:00 Resp 18 06/10/19 16:00 BP 134/81 06/10/19 15:43 Pulse Ox 98 06/10/19 15:43 Intake & Output 06/09/19 06/10/19 06/10/19 18:59 06:59 18:59 Intake Total 500 500 Balance 500 500 Intake: Intake, IV Titration 500 500 Amount Sodium Chloride 0.9% 1, 500 500 000 ml @ 100 mls/hr IV . Q10H [facility] Rx#:[id number] Other: Voiding Method Toilet # Voids 2 1 3 - Exam GENERAL: This is a -64 year-old in no apparent distress at the time of examination. Pleasant and cooperative. HEENT: Head is atraumatic, normocephalic. Pupils are equal, round, and reactive to light. Sclerae anicteric. Conjunctivae are clear. Mucus membranes of the mouth are moist. Neck is supple. RESPIRATORY: Clear to auscultation. No wheezes, rales, or rhonchi. No use of accessory muscles. Patient maintaining oxygen saturation greater than 92%. No chest wall tenderness is noted on palpation or with deep breathing. CARDIOVASCULAR: Regular rate and rhythm. S1 and S2 noted. No systolic or blackwood tolic murmur auscultated. No JVD noted. No S3 or S4 noted. GASTROINTESTINAL: No distention noted. Abdomen soft and round. Mild Diffuse tenderness. Normal active bowel sounds auscultated x 4 quadrants. D INTEGUMENTARY: No cyanosis. No jaundice. No rashes noted. No cellulitis noted. EXTREMITIES: 2+ peripheral pulses. No evidence of peripheral edema. No calf tenderness noted. NEUROLOGIC: Cranial nerves II-XII intact. PSYCHIATRIC: Awake, alert, and oriented X 3. Appropriate affect. Intact pool lifeguard ment and insight. - Labs CBC & Chem 7: 06/09/19 03:09 06/11/19 06:01 Labs: Abnormal Lab Results - Last 24 Hours (Table) 06/09/19 06/10/19 06/10/19 Range/Units 20:00 06:49 06:55 Chloride 111 H (98-107) mmol/L Glucose 122 H (74-99) mg/dL POC Glucose (mg/dL) 195 H 113 H (75-99) mg/dL 06/10/19 06/10/19 Range/Units 12:00 16:45 Chloride (98-107) mmol/L Glucose (74-99) mg/dL POC Glucose (mg/dL) 147 H 156 H (75-99) mg/dL Assessment and Plan Assessment: (1) Abdominal pain, probably related to constipation Current Visit: No Status: Acute Code(s): R10.9 - UNSPECIFIED ABDOMINAL PAIN SNOMED Code(s): 84499983 (2) Chest pain Current Visit: No Status: Acute Code(s): R07.9 - CHEST PAIN, UNSPECIFIED SNOMED Code(s): 97502049 (3) Symptomatic sinus bradycardia Current Visit: No Status: Acute Code(s): R00.1 - BRADYCARDIA, UNSPECIFIED SNOMED Code(s): 996006513 (4) Diabetes type 2, uncontrolled, hyperglycemia, improving Current Visit: Yes Status: Acute Code(s): E11.65 - TYPE 2 DIABETES MELLITUS WITH HYPERGLYCEMIA SNOMED Code(s): 189003153 (5) Hypertension Current Visit: Yes Status: Acute Code(s): I10 - ESSENTIAL (PRIMARY) HYPERTENSION SNOMED Code(s): 10582613 (6) Near-syncope orthostatic hypotension, improving Plan: Continue current medication regime ,monitoring and symptomatic treatment. Evaluated by surgery, lactulose added to medication regime and requesting patient be observed overnight. Maintain daily YAN hose, rising slowly allowing for gravity changes, Discharge planning in progress for tomorrow. The impression and plan of care has been dictated as directed. : I performed a history and examination of this patient, discussed the same with the dictator. I agree with the dictator's note ,documented as a scribe. Any additional findings or plans will be noted.
--- NOTE | 2019-06-11 10:54 | P.DS ---
Providers Date of admission: 06/10/19 15:50 Expected date of discharge: 06/11/19 Attending physician: Kevyn Luciano Consults: 06/08/19 16:11 Consult Physician Urgent Consulting Provider: Jose Up Consult Reason/Comments: syncope Do you want consulting provider notified?: Yes 06/09/19 17:43 Consult Physician Routine Consulting Provider: Douglas Monahan Consult Reason/Comments: abdominal pain Do you want consulting provider notified?: Yes, Notify in am Primary care physician: Kevyn Luciano [facility] Course: Final Diagnoses: (1) Abdominal pain, probably related to constipation Current Visit: No Status: Acute Code(s): R10.9 - UNSPECIFIED ABDOMINAL PAIN SNOMED Code(s): 88865121 (2) Chest pain Current Visit: No Status: Acute Code(s): R07.9 - CHEST PAIN, UNSPECIFIED SNOMED Code(s): 59557353 (3) Symptomatic sinus bradycardia Current Visit: No Status: Acute Code(s): R00.1 - BRADYCARDIA, UNSPECIFIED SNOMED Code(s): 243686571 (4) Diabetes type 2, uncontrolled, hyperglycemia, improving Current Visit: Yes Status: Acute Code(s): E11.65 - TYPE 2 DIABETES MELLITUS WITH HYPERGLYCEMIA SNOMED Code(s): 222799866 (5) Hypertension Current Visit: Yes Status: Acute Code(s): I10 - ESSENTIAL (PRIMARY) HYPERTENSION SNOMED Code(s): 58614349 (6) Near-syncope orthostatic hypotension, improving Hospital course:This is a pleasant 64-year-old white female is admitted to the emergency department into observation. She initially complained of left-sided chest pain radiating to her left neck and jaw. And she also complains of the left lower abdominal pain that radiates up to her chest. She currently is comfortable in bed without any complaints and awaiting cardiology evaluation. 06/10/2019 Wearing thigh-high Teds. Orthostatic hypotension, improving.Mild lightheadedness upon arising.Denies near-syncope, syncope. Ambulating in hallway, tolerating exertion well. Yesterday Senokot S and Metamucil initiated in addition to Colace with positive results. Possible bowel movement. Complained of diffuse abdominal pain later in the afternoon, , general surgery whom patient follows with closely, consulted. Good diet intake, no nausea or vomiting. Telemetry sinus rhythm. VSS. Afebrile. Denies chest pain, palpitations or shortness of breath. Evaluated by surgery, lactulose added to medication regime. Significant clinical improvement. Cleared by all consults for discharge. Patient is being discharged home in a stable condition with guarded prognosis. - Exam GENERAL: Alert and oriented 3, no acute distress RESPIRATORY: Clear to auscultation. No wheezes, rales, or rhonchi. CARDIOVASCULAR: Regular rate and rhythm. S1 and S2 noted. No systolic or diastolic murmur auscultated. No JVD noted. No S3 or S4 noted. GASTROINTESTINAL: No distention noted. Abdomen soft and round. No tenderness. Normal active bowel sounds. NEUROLOGIC: Cranial nerves II-XII intact. The impression and plan of care has been dictated as directed. : I performed a history and examination of this patient, discussed the same with the dictator. I agree with the dictator's note ,documented as a scribe. Any additional findings or plans will be noted. Time taken: 35 minutes Patient Condition at Discharge: Stable Plan - Discharge Summary Discharge Rx Participant: No New Discharge Prescriptions: New Docusate [Colace] 100 mg PO BID #60 cap Atorvastatin [Lipitor] 40 mg PO HS #30 tab Polyethylene Glycol 3350 [Miralax] 17 gm PO DAILY powd.pack Sennosides-Docusate Sodium [Senokot-S] 2 each PO BID tab Lactulose [Cephulac] 30 gm PO DAILY PRN #500 ml PRN Reason: Constipation Sertraline HCl [Zoloft] 50 mg PO DAILY #30 tablet Continue Insulin Glargine [Lantus] 30 unit SQ HS INSULIN ASPART (NovoLOG) [NovoLOG (formulary)] 15 unit SQ AC-TID #0 Discharge Medication List Insulin Glargine [Lantus] 30 unit SQ HS 05/14/19 [History] Atorvastatin [Lipitor] 40 mg PO HS #30 tab 06/09/19 [Rx] Docusate [Colace] 100 mg PO BID #60 cap 06/09/19 [Rx] Polyethylene Glycol 3350 [Miralax] 17 gm PO DAILY powd.pack 06/09/19 [Rx] Sennosides-Docusate Sodium [Senokot-S] 2 each PO BID tab 06/09/19 [Rx] Lactulose [Cephulac] 30 gm PO DAILY PRN #500 ml 06/10/19 [Rx] INSULIN ASPART (NovoLOG) [NovoLOG (formulary)] 15 unit SQ AC-TID #0 06/11/19 [Rx] Sertraline HCl [Zoloft] 50 mg PO DAILY #30 tablet 06/11/19 [Rx] Follow up Appointment(s)/Referral(s): Kevyn Luciano DO [Primary Care Provider] - 1 Week Leandro Londono MD [STAFF PHYSICIAN] - 06/24/19 2:30 pm Douglas Monahan MD [STAFF PHYSICIAN] - 2 Weeks Activity/Diet/Wound Care/Special Instructions: Thigh-high teds Diet: Consistent carb Discharge Disposition: HOME SELF-CARE
== END 2019-06-11 10:40 | disposition home or self-care (01) | DRG 312 ==
LOC: EC 13:21 → 1SOBS 16:16 → OBSVTOIN 06-10 15:50
PROVIDERS: ADMIT Family Medicine; ATTEND Family Medicine
DX: I95.1 Orthostatic hypotension (principal); E11.65 Type 2 diabetes mellitus with hyperglycemia; E78.5 Hyperlipidemia, unspecified; F43.10 Post-traumatic stress disorder, unspecified; G40.909 Epilepsy, unspecified, not intractable, without status epilepticus; G47.30 Sleep apnea, unspecified; I11.0 Hypertensive heart disease with heart failure; I48.91 Unspecified atrial fibrillation; I50.9 Heart failure, unspecified; J44.9 Chronic obstructive pulmonary disease, unspecified; K21.9 Gastro-esophageal reflux disease without esophagitis; K59.00 Constipation, unspecified; M06.9 Rheumatoid arthritis, unspecified; M19.90 Unspecified osteoarthritis, unspecified site; M79.7 Fibromyalgia; Z79.4 Long term (current) use of insulin; Z79.899 Other long term (current) drug therapy; Z80.9 Family history of malignant neoplasm, unspecified; Z82.49 Family history of ischemic heart disease and other diseases of the circulatory system; Z83.3 Family history of diabetes mellitus; Z86.73 Personal history of transient ischemic attack (TIA), and cerebral infarction without residual deficits; Z90.49 Acquired absence of other specified parts of digestive tract; Z90.710 Acquired absence of both cervix and uterus; Z96.651 Presence of right artificial knee joint; Z98.84 Bariatric surgery status
CPT/HCPCS: 36415; 70450; 71046; 74177; 80048; 80053; 81001; 83735; 84484; 85025; 85379; 85610; 85730; 93005; 96361; 96374; 96375; 99285

== ENCOUNTER 2019-07-20 12:29 | Observation (INO) | payer MEDICARE, OTHER ==
[2019-07-20] MEDS ORDERED: NITROGLYCERIN OINT 1 INCH/GM PACKET TOPICAL STA (12:56)
[2019-07-20 13:10] LABS: Basophils # (A) 0.1 k/uL (0-0.2); Basophils % (A) 1 %; Eosinophils # (A) 0.2 k/uL (0-0.7); Eosinophils % (A) 2 %; HCT 45.1 % (34.0-46.0); HGB 14.9 gm/dL (11.4-16.0); Lymphocytes # (A) 2.3 k/uL (1.0-4.8); Lymphocytes % (A) 28 %; MCH 29.9 pg (25.0-35.0); MCHC 32.9 g/dL (31.0-37.0); MCV 90.9 fL (80.0-100.0); Mean Platelet Volume 6.7; Monocytes # (A) 0.4 k/uL (0-1.0); Monocytes % (A) 5 %; Neutrophils # (A) 5.1 k/uL (1.3-7.7); Neutrophils % (A) 62 %; Platelet Count 262 k/uL (150-450); RBC 4.96 m/uL (3.80-5.40); RDW 12.9 % (11.5-15.5); WBC 8.3 k/uL (3.8-10.6)
--- NOTE | 2019-07-20 13:12 | ED ---
Chest Pain HPI - General Chief Complaint: Chest Pain Stated Complaint: chest pain Time Seen by Provider: 07/20/19 12:35 Source: patient Mode of arrival: wheelchair Limitations: no limitations - History of Present Illness Initial Comments: The patient is a 64-year-old female with past no history of orthostatic hypotension and diabetes who presents to the emergency department with reported chest pain. Patient reports to a physician at the end of May for similar complaint. She follows the Dr. Londono in office. States that they previously treated her chest pain to hypertension. The patient was placed on a blood pressure medication prior to discharge however states she has been staying with her brother and has not taken the medications. She has not been checking her blood pressures at home. States that she was told the medication daily however she does have issues with high blood pressure medications because of her orthostatic hypotension. Today she states she felt presyncopal. She began having left-sided chest pain which radiated to her left jaw and left arm. She not take any medications at home for her symptoms. Denies any associated shortness of breath. Does admit to nausea without vomiting. No ripping or tearing sensation to her back. Report of any fevers or chills. She does have a cough and sore throat. No sputum production. Admits that her friend at bedside has been sick and possibly caught something from her. She denies any abdominal pain. There are no other alleviating, precipitating or modifying factors - Related Data Home Medications Medication Instructions Recorded Confirmed Insulin Glargine [Lantus] 30 unit SQ HS 05/14/19 07/20/19 Sennosides-Docusate Sodium 2 tab PO BID 07/20/19 07/20/19 [Senokot-S] Previous Rx's Medication Instructions Recorded Atorvastatin [Lipitor] 40 mg PO HS #30 tab 06/09/19 Docusate [Colace] 100 mg PO BID #60 cap 06/09/19 Polyethylene Glycol 3350 [Miralax] 17 gm PO DAILY powd.pack 06/09/19 Lactulose [Cephulac] 30 gm PO DAILY PRN #500 ml 06/10/19 INSULIN ASPART (NovoLOG) [NovoLOG 15 unit SQ AC-TID #0 06/11/19 (formulary)] Sertraline HCl [Zoloft] 50 mg PO DAILY #30 tablet 06/11/19 Lisinopril [Zestril] 5 mg PO HS #30 tab 07/21/19 Allergies Allergy/AdvReac Type Severity Reaction Status Date / Time ampicillin Allergy Rash/Hives Verified 07/20/19 13:30 codeine Allergy Rash/Hives Verified 07/20/19 13:30 erythromycin base Allergy Rash/Hives Verified 07/20/19 13:30 lorazepam [From Ativan] Allergy Unknown Verified 07/20/19 13:30 Sulfa (Sulfonamide Allergy Rash/Hives Verified 07/20/19 13:30 Antibiotics) Review of Systems ROS Statement: Those systems with pertinent positive or pertinent negative responses have been documented in the HPI. ROS Other: All systems not noted in ROS Statement are negative. EKG Findings - EKG Comments: EKG Findings:: EKG demonstrates a normal sinus rhythm with a ventricular rate of 60. [place] interval 160. QRS E4. QTC 418. No acute ST segment elevations or depressions concerning for ischemic changes. Inverted T-wave in lead aVL. Past Medical History Past Medical History: Atrial Fibrillation, Asthma, Cancer, Chest Pain / Angina, Heart Failure, COPD, Diabetes Mellitus, Fibromyalgia, GERD/Reflux, Hyperl ipidemia, Hypertension, Osteoarthritis (OA), Pneumonia, Rheumatoid Arthritis (RA), Seizure Disorder, Sleep Apnea/CPAP/BIPAP Additional Past Medical History / Comment(s): mult TIA-no effects, migraines, irregular heartbeat, varicose veins, no cpap used, oxygen PRN for migraines, hx ulcer, IBS, gout, UTI's, ovarian cancer, diverticulitis History of Any Multi-Drug Resistant Organisms: None Reported Past Surgical History: Appendectomy, Bariatric Surgery, Cholecystectomy, Hernia Repair, Hysterectomy, Joint Replacement, Orthopedic Surgery Additional Past Surgical History / Comment(s): lap band/later removed, gastric sleeve, colon resection for diverticulitis, rt knee replacement, "stent in nose-from fx nose", rt thumb- tendon surgery, Past Anesthesia/Blood Transfusion Reactions: Previous Problems w/ Anesthesia Additional Past Anesthesia/Blood Transfusion Reaction / Comment(s): spray used to numb throat-had anaphylaxis(does not know name). slow to wake up Past Psychological History: Anxiety, Depression, PTSD Smoking Status: Never smoker Past Alcohol Use History: None Reported Past Drug Use History: None Reported - Past Family History Father Family Medical History: Cancer Additional Family Medical History / Comment(s): . Mother Family Medical History: Coronary Artery Disease (CAD), Dementia, Diabetes Mellitus, Thyroid Disorder Additional Family Medical History / Comment(s): diverticulitis, Sister(s) Family Medical History: Cancer General Exam Limitations: no limitations General appearance: alert, in no apparent distress Head exam: Present: atraumatic, normocephalic, normal inspection Eye exam: Present: normal appearance, PERRL, EOMI. Absent: scleral icterus, conjunctival injection, periorbital swelling ENT exam: Present: normal exam, mucous membranes moist Neck exam: Present: normal inspection. Absent: tenderness, meningismus, lymphadenopathy Respiratory exam: Present: normal lung sounds bilaterally. Absent: respiratory distress, wheezes, rales, rhonchi, stridor Cardiovascular Exam: Present: regular rate, normal rhythm, normal heart sounds. Absent: systolic murmur, diastolic murmur, rubs, gallop, clicks GI/Abdominal exam: Present: soft, normal bowel sounds. Absent: distended, tenderness, guarding, rebound, rigid Extremities exam: Present: normal inspection, full ROM, normal capillary refill. Absent: tenderness, pedal edema, joint swelling, calf tenderness Back exam: Present: normal inspection Neurological exam: Present: alert, oriented X3, CN II-XII intact Psychiatric exam: Present: normal affect, normal mood Skin exam: Present: warm, dry, intact, normal color. Absent: rash Course Vital Signs 07/20/19 07/20/19 07/20/19 12:33 12:53 12:54 Temperature 97.4 F L Pulse Rate 61 58 L Pulse Rate [ 58 L Environmental Educator ] Respiratory 18 18 Rate Blood Pressure 166/81 175/88 O2 Sat by Pulse 97 99 Oximetry 07/20/19 17:17 Temperature Pulse Rate 58 L Pulse Rate [ Environmental Educator ] Respiratory 18 Rate Blood Pressure 119/88 O2 Sat by Pulse 97 Oximetry Chest Pain MDM - MDM Upon arrival the patient was placed into room 1. Thorough history and physical exam is performed. A 12-lead EKG is performed with the patient which demonstrates no acute findings. Recommend laboratory studies and a chest x-ray. Blood work is unremarkable. D-dimer is negative. Glucose is 348. Troponin is negative. Chest x-ray demonstrates borderline cardiomegaly. The patient's last cath was in 2016. She did have an echo in January. The patient was given nitro paste for chest pain. I did reevaluate her and she states that her chest pain has now entirely resolved. I did recommend hospital admission for cardiology evaluation. A call discuss the case with Dr. Lorenzo who accepted admission for the patient. I will consult cardiology. Bridging orders were placed and the patient was transported to floor in stable condition Disposition Clinical Impression: Chest pain, Hypertension Disposition: ADMITTED IP TO THIS HOSP Condition: Stable Is patient prescribed a controlled substance at d/c from ED?: No Decision to Admit Reason: Admit from EC Decision Date: 07/20/19 Decision Time: 15:53
[2019-07-20 13:52] LABS: ALT 20 U/L (9-52); AST 18 U/L (14-36); African American GFR (CKD) >90 (>60 ml/min/1.73 sqM); Albumin 3.2 g/dL (3.5-5.0); Alkaline Phosphatase 181 U/L (38-126); Anion Gap 6 mmol/L; Blood Urea Nitrogen 14 mg/dL (7-17); Calcium 9.4 mg/dL (8.4-10.2); Carbon Dioxide 26 mmol/L (22-30); Chloride 104 mmol/L (98-107); Glucose 348 mg/dL (74-99); Magnesium 1.9 mg/dL (1.6-2.3); Non-African American GFR(CKD) >90 (>60 ml/min/1.73 sqM); Potassium 4.2 mmol/L (3.5-5.1); Sodium 136 mmol/L (137-145); Total Bilirubin 0.7 mg/dL (0.2-1.3)
[2019-07-20 13:59] LABS: D-Dimer 0.31 mg/L FEU (<0.60); INR 0.9 (<1.2); Partial Thromboplastin Time 24.3 sec (22.0-30.0); Prothrombin Time 9.7 sec (9.0-12.0)
--- NOTE | 2019-07-20 14:15 | XR ---
EXAMINATION TYPE: XR chest 2V DATE OF EXAM: 07/20/2019 HISTORY: Chest Pain. REFERENCE: Previous study dated 06/08/2019. FINDINGS: Heart size upper limits of normal. The lungs are clear. Pleural spaces are clear. IMPRESSION: BORDERLINE CARDIOMEGALY.
[2019-07-20] MEDS ORDERED: NALOXONE 0.4 MG/ML 1 ML VIAL IV PRN (15:53)
[2019-07-20] MEDS ORDERED: LISINOPRIL 5 MG TAB PO STA (15:55)
[2019-07-20] MEDS ORDERED: LACTULOSE 20 GM/30 ML CUP PO PRN (15:55)
[2019-07-20] MEDS: SODIUM CHLORIDE 0.9% 1,000 ML IV SCH (17:19)
[2019-07-20 17:49] LABS: Glucose,Whole Blood 201 mg/dL (75-99)
[2019-07-20] MEDS: INSULIN ASPART (NovoLOG) 100 UNIT/ML VIAL SQ SCH ×2 (17:56→19:54)
[2019-07-20 19:05] VITALS: RESP 18
[2019-07-20] MEDS: SENNOSIDES-DOCUSATE SODIUM 1 EACH TAB PO SCH (19:55)
[2019-07-20] MEDS: DOCUSATE 100 MG CAP PO SCH (19:55)
[2019-07-20 20:01] LABS: Glucose,Whole Blood 367 mg/dL (75-99)
[2019-07-20] MEDS ORDERED: ATORVASTATIN 40 MG TAB PO SCH (21:00)
[2019-07-20] MEDS ORDERED: INSULIN DETEMIR (LEVEMIR) 100 UNIT/ML SYR SQ SCH (21:00)
--- NOTE | 2019-07-21 00:38 | P.HPIM ---
History of Present Illness H&P Date: 07/20/19 Chief Complaint: Chest pain Patient is a 64-year-old female with a known history of orthostatic hypotension, diabetes type 2 insulin-dependent, history of diverticulitis status post colon resection, history of lap band surgery converted to sleeve gastrectomy, history of CVA with no residual weakness came to ER with complaints of chest pain. [place] [facility] [place]. Patient had EKG which showed sinus rhythm and possible inferior wall ischemia. Patient also complaining of chest pain mainly left retrosternal with radiation toward joint left arm. No associated shortness of breath. Does have nausea vomiting. no diaphoresis. denied any fever or chills. no cough or sputum production. no abdominal pain. no diarrhea or dysuria. Patient was eventually referred to ER. Patient was admitted to the hospital in May and patient was sent home with blood pressure medications. However patient does have issues with high blood pressure medications because of her orthostatic hypotension.. Chest x-ray showed borderline cardiomegaly Troponin 2 negative EKG showed normal sinus rhythm. Blood sugar was elevated at 342 on admission D-dimer not elevated Review of Systems Constitutional: Patient denies any fever or chills . No generalized weakness or weight loss. Abdomen: Patient denied nausea vomiting and diarrhea and abdominal pain. Cardiovascular: Chest pain. No associated shortness of breath. No leg swelling. No palpitations.. Respiratory: patient denied any cough is from production. No shortness of breath Neurologic: Patient denied any numbness or tingling headache. Musculoskeletal: Patient denies any complaints of joint swelling or deformity. Skin: Negative Psychiatric: Negative Endocrine: No heat or cold intolerance. No recent weight gain. Genitourinary: No dysuria or hematuria. All other 14 point ROS negative except the above Past Medical History Past Medical History: Atrial Fibrillation, Asthma, Cancer, Chest Pain / Angina, Heart Failure, COPD, Diabetes Mellitus, Fibromyalgia, GERD/Reflux, Hyperlipidemia, Hypertension, Osteoarthritis (OA), Pneumonia, Rheumatoid Arthritis (RA), Seizure Disorder, Sleep Apnea/CPAP/BIPAP Additional Past Medical History / Comment(s): mult TIA-no effects, migraines, irregular heartbeat, varicose veins, no cpap used, oxygen PRN for migraines, hx ulcer, IBS, gout, UTI's, ovarian cancer, diverticulitis History of Any Multi-Drug Resistant Organisms: None Reported Past Surgical History: Appendectomy, Bariatric Surgery, Cholecystectomy, Hernia Repair, Hysterectomy, Joint Replacement, Orthopedic Surgery Additional Past Surgical History / Comment(s): lap band/later removed, gastric sleeve, colon resection for diverticulitis, rt knee replacement, "stent in nose- from fx nose", rt thumb- tendon surgery, Past Anesthesia/Blood Transfusion Reactions: Previous Problems w/ Anesthesia Additional Past Anesthesia/Blood Transfusion Reaction / Comment(s): spray used to numb throat-had anaphylaxis(does not know name). slow to wake up Past Psychological History: Anxiety, Depression, PTSD Smoking Status: Never smoker Past Alcohol Use History: None Reported Past Drug Use History: None Reported - Past Family History Father Family Medical History: Cancer Additional Family Medical History / Comment(s): . Mother Family Medical History: Coronary Artery Disease (CAD), Dementia, Diabetes Mellitus, Thyroid Disorder Additional Family Medical History / Comment(s): diverticulitis, Sister(s) Family Medical History: Cancer Medications and Allergies Home Medications Medication Instructions Recorded Confirmed Type Insulin Glargine [Lantus] 30 unit SQ HS 05/14/19 07/20/19 History Atorvastatin [Lipitor] 40 mg PO HS #30 tab 06/09/19 07/20/19 Rx Docusate [Colace] 100 mg PO BID #60 cap 06/09/19 07/20/19 Rx Polyethylene Glycol 3350 [Miralax] 17 gm PO DAILY powd.pack 06/09/19 07/20/19 Rx Lactulose [Cephulac] 30 gm PO DAILY PRN #500 ml 06/10/19 07/20/19 Rx INSULIN ASPART (NovoLOG) [NovoLOG 15 unit SQ AC-TID #0 06/11/19 07/20/19 Rx (formulary)] Sertraline HCl [Zoloft] 50 mg PO DAILY #30 tablet 06/11/19 07/20/19 Rx Sennosides-Docusate Sodium 2 tab PO BID 07/20/19 07/20/19 History [Senokot-S] Allergies Allergy/AdvReac Type Severity Reaction Status Date / Time ampicillin Allergy Rash/Hives Verified 07/20/19 13:30 codeine Allergy Rash/Hives Verified 07/20/19 13:30 erythromycin base Allergy Rash/Hives Verified 07/20/19 13:30 lorazepam [From Ativan] Allergy Unknown Verified 07/20/19 13:30 Sulfa (Sulfonamide Allergy Rash/Hives Verified 07/20/19 13:30 Antibiotics) Physical Exam Vitals: Vital Signs Temp Pulse Pulse Resp BP Pulse Ox 07/20/19 12:54 58 L 07/20/19 12:53 58 L 18 175/88 99 07/20/19 12:33 97.4 F L 61 18 166/81 97 Intake and Output 07/20/19 07/20/19 07/20/19 06:59 14:59 22:59 Other: Weight 58.967 kg PHYSICAL EXAMINATION: Patient is lying in the bed comfortably, no acute distress, awake alert and oriented.. HEENT: Normocephalic. Neck is supple. Pupils reactive. Nostrils clear. Oral cavity is moist. No pharyngeal erythema. Ears reveal no drainage. Neck reveals no JVD, carotid bruits, or thyromegaly. CHEST EXAMINATION: Trachea is central. Symmetrical expansion. Lung lopez clear to auscultation and percussion. CARDIAC: Normal S1, S2 with no gallops. No murmurs ABDOMEN: Soft. Bowel sounds normal. No organomegaly. No abdominal bruits. Extremities: reveal no edema. No clubbing or cyanosis Neurologically awake, alert, oriented x3 with well-coordinated movements. No focal deficits noted Skin: No rash or skin lesions. Psychiatric: Coperative. Nonsuicidal Musculoskeletal: No joint swelling or deformity. Normal range of motion. Results CBC & Chem 7: 07/20/19 12:45 07/20/19 13:30 Labs: Abnormal Lab Results - Last 24 Hours (Table) 07/20/19 Range/Units 13:30 Sodium 136 L (137-145) mmol/L Glucose 348 H (74-99) mg/dL Alkaline Phosphatase 181 H (38-126) U/L Total Protein 6.0 L (6.3-8.2) g/dL Albumin 3.2 L (3.5-5.0) g/dL Thrombosis Risk Factor Assmnt - DVT/VTE Prophylaxis DVT/VTE Prophylaxis: Pharmacologic Prophylaxis ordered Assessment and Plan Assessment: Atypical chest pain. Ruled out ACS. Uncontrolled hypertension admission Diabetes type 2 insulin-dependent., With hyperglycemia History of diverticulitis status post colon resection Fibromyalgia GERD Hyperlipidemia History of abnormal arthritis Obstructive sleep apnea History of multiple TIAs no residual weakness History of atrial fibrillation currently not on any medications History of migraine headaches IBS Gout History of colon cancer History of bariatric surgery Anxiety/depression/PTSD DVT prophylaxis with heparin subcu Plan: Patient will be continued on telemetry monitoring. Serial EKGs and troponins. Cardiology evaluation. Continue with insulin dosing and we will add preprandial insulin for better blood sugar control. His B A1c. Continue the home medications and follow closely. Lisinopril 5 mg daily was added for blood pressure control. Further recommendations based on the clinical course. Prognosis is guarded with multiple medical problems and comorbid conditions. Time with Patient: Greater than 30
[2019-07-21 05:38] LABS: African American GFR (CKD) >90 (>60 ml/min/1.73 sqM); Anion Gap 5 mmol/L; Blood Urea Nitrogen 17 mg/dL (7-17); Calcium 9.4 mg/dL (8.4-10.2); Carbon Dioxide 27 mmol/L (22-30); Chloride 105 mmol/L (98-107); Cholesterol 148 mg/dL (<200); Glucose 268 mg/dL (74-99); HDL Cholesterol 31 mg/dL (40-60); LDL Cholesterol,Calculated 62 mg/dL (0-99); Non-African American GFR(CKD) >90 (>60 ml/min/1.73 sqM); Potassium 3.9 mmol/L (3.5-5.1); Sodium 137 mmol/L (137-145); Triglycerides 274 mg/dL (<150)
[2019-07-21 05:41] LABS: Basophils # (A) 0.1 k/uL (0-0.2); Basophils % (A) 1 %; Eosinophils # (A) 0.2 k/uL (0-0.7); Eosinophils % (A) 2 %; HCT 39.6 % (34.0-46.0); HGB 12.9 gm/dL (11.4-16.0); Lymphocytes % (A) 30 %; MCH 29.6 pg (25.0-35.0); MCHC 32.5 g/dL (31.0-37.0); MCV 90.9 fL (80.0-100.0); Mean Platelet Volume 7.4; Monocytes # (A) 0.4 k/uL (0-1.0); Monocytes % (A) 6 %; Neutrophils # (A) 3.7 k/uL (1.3-7.7); Neutrophils % (A) 58 %; Platelet Count 237 k/uL (150-450); RBC 4.35 m/uL (3.80-5.40); RDW 12.9 % (11.5-15.5); WBC 6.5 k/uL (3.8-10.6)
[2019-07-21 06:35] LABS: Glucose,Whole Blood 249 mg/dL (75-99)
[2019-07-21] MEDS ORDERED: INSULIN ASPART (NovoLOG) 100 UNIT/ML VIAL SQ SCH (07:30)
[2019-07-21 07:32] VITALS: BP 108/68; PULSE 54; TEMP 97.6
[2019-07-21] MEDS: SENNOSIDES-DOCUSATE SODIUM 1 EACH TAB PO SCH (08:34)
[2019-07-21] MEDS: DOCUSATE 100 MG CAP PO SCH (08:34)
[2019-07-21] MEDS: INSULIN ASPART (NovoLOG) 100 UNIT/ML VIAL SQ SCH (08:36)
[2019-07-21] MEDS ORDERED: SERTRALINE 50 MG TAB PO SCH (09:00)
[2019-07-21] MEDS ORDERED: POLYETHYLENE GLYCOL 3350 17 GM POWD.PACK PO SCH (09:00)
--- NOTE | 2019-07-21 10:00 | P.DS ---
Providers Date of admission: 07/20/19 15:54 Expected date of discharge: 07/21/19 Attending physician: Kevyn Luciano Consults: 07/20/19 15:54 Consult Physician Urgent Consulting Provider: Leandro Londono Consult Reason/Comments: acute chest pain, hypertension Do you want consulting provider notified?: Yes Primary care physician: Kevyn Luciano Hospital Course: Final Diagnoses: Atypical chest pain. Ruled out ACS. Uncontrolled hypertension admission Diabetes type 2 insulin-dependent., With hyperglycemia History of diverticulitis status post colon resection Fibromyalgia GERD Hyperlipidemia History of abnormal arthritis Obstructive sleep apnea History of multiple TIAs no residual weakness History of atrial fibrillation currently not on any medications History of migraine headaches IBS Gout History of colon cancer History of bariatric surgery Anxiety/depression/PTSD Hospital course:Patient is a 64-year-old female with a known history of orthostatic hypotension, diabetes type 2 insulin-dependent, history of diverticulitis status post colon resection, history of lap band surgery converted to sleeve gastrectomy, history of CVA with no residual weakness came to ER with complaints of chest pain. Patient initially presented to [facility] – [place] with the complaints of sore throat. Patient had EKG which showed sinus rhythm and possible inferior wall ischemia. Patient also complaining of chest pain mainly left retrosternal with radiation toward joint left arm. No associated shortness of breath. Does have nausea vomiting. no diaphoresis. denied any fever or chills. no cough or sputum production. no abdominal pain. no diarrhea or dysuria. Patient was eventually referred to ER. Patient was admitted to the hospital in May and patient was sent home with blood pressure medications. However patient does have issues with high blood pressure medications because of her orthostatic hypotension. Chest x-ray showed borderline cardiomegaly Troponin 2 negative EKG showed normal sinus rhythm. Blood sugar was elevated at 342 on admission D-dimer not elevated Evaluated by cardiology, lisinopril added with blood pressure better controlled.telemetry sinus bradycardia to sinus rhythm .significant clinical improvement .Cleared by cardiology for discharge, recommending further outpatient follow-up including outpatient stress. Hemoglobin A1c ordered with final results to PCP-Dr. Luciano. Patient is being discharged home in a stable condition with guarded prognosis. EXAM: GENERAL: no acute distress, alert and oriented 3 CHEST EXAMINATION: Lung lopez clear to auscultation and percussion. CARDIAC: Normal S1, S2 with no gallops. No murmurs ABDOMEN: Soft. Bowel sounds normal. Nontender. Neurologically: No focal deficits noted. The impression and plan of care has been dictated as directed. : I performed a history and examination of this patient, discussed the same with the dictator. I agree with the dictator's note ,documented as a scribe. Any additional findings or plans will be noted. Patient Condition at Discharge: Stable Plan - Discharge Summary Discharge Rx Participant: No New Discharge Prescriptions: New Lisinopril [Zestril] 5 mg PO HS #30 tab Continue Insulin Glargine [Lantus] 30 unit SQ HS Docusate [Colace] 100 mg PO BID #60 cap Atorvastatin [Lipitor] 40 mg PO HS #30 tab Polyethylene Glycol 3350 [Miralax] 17 gm PO DAILY powd.pack Lactulose [Cephulac] 30 gm PO DAILY PRN #500 ml PRN Reason: Constipation INSULIN ASPART (NovoLOG) [NovoLOG (formulary)] 15 unit SQ AC-TID #0 Sertraline HCl [Zoloft] 50 mg PO DAILY #30 tablet Sennosides-Docusate Sodium [Senokot-S] 2 tab PO BID Discharge Medication List Insulin Glargine [Lantus] 30 unit SQ HS 05/14/19 [History] Atorvastatin [Lipitor] 40 mg PO HS #30 tab 06/09/19 [Rx] Docusate [Colace] 100 mg PO BID #60 cap 06/09/19 [Rx] Polyethylene Glycol 3350 [Miralax] 17 gm PO DAILY powd.pack 06/09/19 [Rx] Lactulose [Cephulac] 30 gm PO DAILY PRN #500 ml 06/10/19 [Rx] INSULIN ASPART (NovoLOG) [NovoLOG (formulary)] 15 unit SQ AC-TID #0 06/11/19 [Rx] Sertraline HCl [Zoloft] 50 mg PO DAILY #30 tablet 06/11/19 [Rx] Sennosides-Docusate Sodium [Senokot-S] 2 tab PO BID 07/20/19 [History] Lisinopril [Zestril] 5 mg PO HS #30 tab 07/21/19 [Rx] Follow up Appointment(s)/Referral(s): Leandro Londono MD [STAFF PHYSICIAN] - 07/29/19 1:15 pm (follow up with Dr. Londono for outpatient stress test.) Kevyn Luciano DO [Primary Care Provider] - 1 Week Patient Instructions/Handouts: Chest Pain (DC)
[2019-07-21] MEDS: SODIUM CHLORIDE 0.9% 1,000 ML IV SCH (10:45)
--- NOTE | 2019-07-21 10:52 | CONS ---
CONSULTATION Destiny Mejia is a 64-year-old lady with not well-controlled type 2 diabetes mellitus and she also has hyperlipidemia. She has unremarkable cardiac cath from April 2017 with a right dominant system. She also had a tilt test performed because of some orthostatic hypotension in January of this year which revealed vasodepressor syncope, probably as a result of some diabetes-related dysautonomia. She came into the hospital with episode of chest pain. Pain seemed to persist all night. It was in the midsternal epigastric area and after she came here pain was resolved. Her three sets of troponins are normal. She is resting comfortably without symptoms at the time of my evaluation. EKG this morning is also unremarkable for any ischemic changes. She came in mainly with what she described as a left arm and jaw discomfort. The symptoms have resolved. She is resting comfortably. She also felt a little dizzy and lightheaded. She thought she had orthostatic hypotension but we did not see any of that in the emergency room when she came in. She has not had any recurrence of symptoms. She is resting comfortably without symptoms. PAST MEDICAL HISTORY: 1. Type 2 diabetes. 2. Hypertension. 3. Hyperlipidemia. 4. Orthostatic hypotension. 5. Unremarkable cardiac cath in April 2017, positive tilt test for vasodepressor syncope in January 2019. MEDICATIONS: Lipitor 40 mg daily. She takes lactulose, Colace, NovoLog with meals, and Zoloft. ALLERGIES: She is allergic to AMPICILLIN, CODEINE, ERYTHROMYCIN, ATIVAN, SULFONAMIDES. PAST SURGICAL HISTORY: Remarkable for Lap-Band surgery, gastric sleeve surgery, colon resection for diverticulitis, right knee arthroplasty. PHYSICAL EXAMINATION: On examination, blood pressure is 108/70, no orthostatic changes, heart rate is 60 per minute. HEENT: Unremarkable. Fundus was not examined by me. Neck is supple. There is no JVD. I do not hear a carotid bruit. Heart exam reveals S1, S2 heard normally. No rub, murmur, or gallop. Lungs are clear. Abdomen is soft, nontender. Lower extremities reveal normal pulses. No edema. Central nervous system is normal. EKG revealed sinus mechanism. No acute changes. Laboratory data revealed unremarkable troponins. Blood sugar control seems to be suboptimal. Renal function is normal. LDL cholesterol is 62. IMPRESSION: 1. Atypical chest pain. 2. Uncontrolled diabetes. 3. History of unremarkable cardiac catheterization two years ago. 4. Dysautonomia with positive tilt test with vasodepressor symptoms in January 2019. RECOMMENDATIONS: The patient's symptoms seem atypical. After being here for so many hours, her troponin levels have been unremarkable. I have discussed this with her. I am suggesting that we increase activity. Discontinue oxygen. If she has no further symptoms, she can be discharged and see Dr. Londono in the office as an outpatient and he will perform a stress test. I discussed my thoughts in detail with the patient. If she has any symptoms while she is here ambulating, then we will reconsider this approach. Thank you very much for the consult. ROLO / ROSAN: [phone] /
[2019-07-21 13:10] LABS: Hemoglobin A1C 12.4 % (4.0-6.0)
[2019-07-21] MEDS ORDERED: LISINOPRIL 5 MG TAB PO SCH (21:00)
== END 2019-07-21 10:46 | disposition home or self-care (01) ==
LOC: EC 12:29 → 1SOBS 15:54
PROVIDERS: ADMIT Family Medicine; ATTEND Family Medicine
DX: R07.89 Other chest pain (principal); E11.65 Type 2 diabetes mellitus with hyperglycemia; I11.0 Hypertensive heart disease with heart failure; I50.9 Heart failure, unspecified; I48.91 Unspecified atrial fibrillation; Z91.14 Patient's other noncompliance with medication regimen; I95.1 Orthostatic hypotension; M06.9 Rheumatoid arthritis, unspecified; K21.9 Gastro-esophageal reflux disease without esophagitis; J44.9 Chronic obstructive pulmonary disease, unspecified; G47.33 Obstructive sleep apnea (adult) (pediatric); G40.909 Epilepsy, unspecified, not intractable, without status epilepticus; E78.5 Hyperlipidemia, unspecified; M19.90 Unspecified osteoarthritis, unspecified site; I83.90 Asymptomatic varicose veins of unspecified lower extremity; K58.9 Irritable bowel syndrome, unspecified; M10.9 Gout, unspecified; F43.10 Post-traumatic stress disorder, unspecified; M79.7 Fibromyalgia; F32.9 Major depressive disorder, single episode, unspecified; J02.9 Acute pharyngitis, unspecified; R11.2 Nausea with vomiting, unspecified; G90.1 Familial dysautonomia [Riley-Day]; Z79.4 Long term (current) use of insulin; Z79.899 Other long term (current) drug therapy; Z88.1 Allergy status to other antibiotic agents; Z88.5 Allergy status to narcotic agent; Z88.0 Allergy status to penicillin; Z88.2 Allergy status to sulfonamides; Z88.8 Allergy status to other drugs, medicaments and biological substances; Z86.73 Personal history of transient ischemic attack (TIA), and cerebral infarction without residual deficits; Z87.19 Personal history of other diseases of the digestive system; Z85.038 Personal history of other malignant neoplasm of large intestine; Z87.440 Personal history of urinary (tract) infections; Z85.43 Personal history of malignant neoplasm of ovary; Z99.89 Dependence on other enabling machines and devices; Z90.49 Acquired absence of other specified parts of digestive tract; Z96.651 Presence of right artificial knee joint; Z98.84 Bariatric surgery status; Z87.81 Personal history of (healed) traumatic fracture; Z83.3 Family history of diabetes mellitus; Z82.49 Family history of ischemic heart disease and other diseases of the circulatory system; Z83.79 Family history of other diseases of the digestive system; Z83.49 Family history of other endocrine, nutritional and metabolic diseases; Z81.8 Family history of other mental and behavioral disorders
CPT/HCPCS: 93005 ×2; 99285; 36415; 85379; 80061; 80053; 80048; 83735; 84484 ×2; 85025 ×2; 85610; 85730; 87502; 83036; 71046; G0378 ×2

== ENCOUNTER 2019-10-05 14:48 | Observation (INO) | payer MEDICARE ==
[2019-10-05] MEDS ORDERED: SODIUM CHLORIDE 0.9% 500 ML 500 ML IV STA (15:09)
[2019-10-05 15:38] LABS: Basophils # (A) 0.1 k/uL (0-0.2); Basophils % (A) 2 %; Eosinophils # (A) 0.2 k/uL (0-0.7); Eosinophils % (A) 3 %; HCT 40.8 % (34.0-46.0); HGB 13.7 gm/dL (11.4-16.0); Lymphocytes # (A) 1.7 k/uL (1.0-4.8); Lymphocytes % (A) 28 %; MCHC 33.5 g/dL (31.0-37.0); MCV 89.4 fL (80.0-100.0); Mean Platelet Volume 8.9; Monocytes # (A) 0.4 k/uL (0-1.0); Monocytes % (A) 7 %; Neutrophils # (A) 3.6 k/uL (1.3-7.7); Neutrophils % (A) 59 %; Platelet Count 230 k/uL (150-450); RBC 4.56 m/uL (3.80-5.40); RDW 12.7 % (11.5-15.5); WBC 6.2 k/uL (3.8-10.6)
[2019-10-05 15:50] LABS: ALT 13 U/L (4-34); AST 27 U/L (14-36); African American GFR (CKD) >90 (>60 ml/min/1.73 sqM); Albumin 3.6 g/dL (3.5-5.0); Alkaline Phosphatase 241 U/L (38-126); Anion Gap 8 mmol/L; Blood Urea Nitrogen 9 mg/dL (7-17); Calcium 9.2 mg/dL (8.4-10.2); Carbon Dioxide 23 mmol/L (22-30); Chloride 101 mmol/L (98-107); Magnesium 1.9 mg/dL (1.6-2.3); Non-African American GFR(CKD) >90 (>60 ml/min/1.73 sqM); Sodium 132 mmol/L (137-145); Total Protein 6.7 g/dL (6.3-8.2)
[2019-10-05 15:51] LABS: Potassium 4.5 mmol/L (3.5-5.1)
[2019-10-05 15:52] LABS: Glucose 519 mg/dL (74-99)
[2019-10-05] MEDS ORDERED: SODIUM CHLORIDE 0.9% 1,000 ML IV SCH (16:00)
--- NOTE | 2019-10-05 16:11 | XR ---
EXAMINATION TYPE: XR chest 2V DATE OF EXAM: 10/05/2019 COMPARISON: 07/20/2019 HISTORY: Chest pain TECHNIQUE: FINDINGS: Heart and mediastinum are normal. Lungs are clear. Diaphragm is normal. There are chest ericka ds. Bony thorax is intact. IMPRESSION: Normal chest. No change.
--- NOTE | 2019-10-05 16:14 | CT ---
EXAMINATION TYPE: CT brain wo con DATE OF EXAM: 10/05/2019 COMPARISON: 06/08/2019 HISTORY: Syncopal episode today after head injury x2 days ago CT DLP: 1074.4 mGycm Automated exposure control for dose reduction was used. Ventricles and sulci appear normal. There is no mass effect nor midline shift. There is no sign of in tracranial hemorrhage. Calvarium is intact. The skull base is intact. Temporal bones appear normal. IMPRESSION: Negative CT scan of the brain. No change.
[2019-10-05] MEDS ORDERED: INSULIN REGULAR 100 UNIT/ML VIAL IV ONE (16:20)
[2019-10-05] MEDS ORDERED: NALOXONE 0.4 MG/ML 1 ML VIAL IV PRN (16:31)
[2019-10-05] MEDS ORDERED: ACETAMINOPHEN TAB 325 MG TAB PO PRN (16:31)
[2019-10-05] MEDS ORDERED: LACTULOSE 20 GM/30 ML CUP PO PRN (16:32)
--- NOTE | 2019-10-05 16:37 | ED ---
General Adult HPI - General Chief complaint: Syncope Stated complaint: Syncope Time Seen by Provider: 10/05/19 15:02 Source: patient, RN notes reviewed, old records reviewed Mode of arrival: ambulatory Limitations: no limitations - History of Present Illness Initial comments: 64-year-old female presents for evaluation of syncope. Patient states that she had 2 episodes today of syncope for unknown duration. She denied any preceding chest pain or palpitations. She states she has had some URI symptoms over the past several days including cough and mild sore throat. She reports subjective fever and chills. She denies dyspnea. Denies vomiting or diarrhea. She states she had a minor head trauma 2 days ago and felt that maybe her syncopal episodes were related to the head trauma. She states that with a 2 L bottle of Pepsi. No loss consciousness. - Related Data Home Medications Medication Instructions Recorded Confirmed Insulin Glargine [Lantus] 30 unit SQ HS 05/14/19 07/20/19 Sennosides-Docusate Sodium 2 tab PO BID 07/20/19 07/20/19 [Senokot-S] Previous Rx's Medication Instructions Recorded Atorvastatin [Lipitor] 40 mg PO HS #30 tab 06/09/19 Docusate [Colace] 100 mg PO BID #60 cap 06/09/19 Polyethylene Glycol 3350 [Miralax] 17 gm PO DAILY powd.pack 06/09/19 Lactulose [Cephulac] 30 gm PO DAILY PRN #500 ml 06/10/19 INSULIN ASPART (NovoLOG) [NovoLOG 15 unit SQ AC-TID #0 06/11/19 (formulary)] Sertraline HCl [Zoloft] 50 mg PO DAILY #30 tablet 06/11/19 Lisinopril [Zestril] 5 mg PO HS #30 tab 07/21/19 Allergies Allergy/AdvReac Type Severity Reaction Status Date / Time ampicillin Allergy Rash/Hives Verified 10/05/19 14:59 codeine Allergy Rash/Hives Verified 10/05/19 14:59 erythromycin base Allergy Rash/Hives Verified 10/05/19 14:59 lorazepam [From Ativan] Allergy Unknown Verified 10/05/19 14:59 Sulfa (Sulfonamide Allergy Rash/Hives Verified 10/05/19 14:59 Antibiotics) Review of Systems ROS Statement: Those systems with pertinent positive or pertinent negative responses have been documented in the HPI. ROS Other: All systems not noted in ROS Statement are negative. Past Medical History Past Medical History: Atrial Fibrillation, Asthma, Cancer, Chest Pain / Angina, Heart Failure, COPD, Diabetes Mellitus, Fibromyalgia, GERD/Reflux, Hyperlipidemia, Hypertension, Osteoarthritis (OA), Pneumonia, Rheumatoid Arthritis (RA), Seizure Disorder, Sleep Apnea/CPAP/BIPAP Additional Past Medical History / Comment(s): mult TIA-no effects, migraines, i rregular heartbeat, varicose veins, no cpap used, oxygen PRN for migraines, hx ulcer, IBS, gout, UTI's, ovarian cancer, diverticulitis History of Any Multi-Drug Resistant Organisms: None Reported Past Surgical History: Appendectomy, Bariatric Surgery, Cholecystectomy, Hernia Repair, Hysterectomy, Joint Replacement, Orthopedic Surgery Additional Past Surgical History / Comment(s): lap band/later removed, gastric sleeve, colon resection for diverticulitis, rt knee replacement, "stent in nose- from fx nose", rt thumb- tendon surgery, Past Anesthesia/Blood Transfusion Reactions: Previous Problems w/ Anesthesia Additional Past Anesthesia/Blood Transfusion Reaction / Comment(s): spray used to numb throat-had anaphylaxis(does not know name). slow to wake up Past Psychological History: Anxiety, Depression, PTSD Smoking Status: Never smoker Past Alcohol Use History: None Reported Past Drug Use History: None Reported - Past Family History Father Family Medical History: Cancer Additional Family Medical History / Comment(s): . Mother Family Medical History: Coronary Artery Disease (CAD), Dementia, Diabetes Mellitus, Thyroid Disorder Additional Family Medical History / Comment(s): diverticulitis, Sister(s) Family Medical History: Cancer General Exam Limitations: no limitations General appearance: alert, in no apparent distress Head exam: Present: atraumatic, normocephalic Eye exam: Present: normal appearance, PERRL, EOMI ENT exam: Present: mucous membranes dry Neck exam: Present: normal inspection. Absent: tenderness, meningismus Respiratory exam: Present: normal lung sounds bilaterally. Absent: respiratory distress, wheezes, rales Cardiovascular Exam: Present: regular rate, normal rhythm GI/Abdominal exam: Present: soft. Absent: distended, tenderness, guarding Extremities exam: Present: normal inspection, full ROM Neurological exam: Present: alert, oriented X3, CN II-XII intact, normal gait. Absent: motor sensory deficit Psychiatric exam: Present: normal affect, normal mood Skin exam: Present: warm, dry, intact. Absent: cyanosis, diaphoretic Course Vital Signs 10/05/19 14:54 Temperature 98.3 F Pulse Rate 72 Respiratory 18 Rate Blood Pressure 153/70 O2 Sat by Pulse 97 Oximetry EKG Findings - EKG Comments: EKG Findings:: EKG: Normal sinus rhythm, left axis deviation, rate of 69, NV interval 156, QRS duration 76, QTC 409, no ST segment elevation or depression. Medical Decision Making - Medical Decision Making 64-year-old female with 2 episodes of syncope, unknown duration. No injury. She had a minor head trauma [address] performed negative for intracranial hemorrhage or mass effect. She had chest x-ray which is negative for pneumonia, no acute cardiopulmonary disease. She has normal CBC, normal CMP with the exception of hyperglycemia at 515. She has a negative troponin. She has a nonischemic EKG. She does appear dehydrated, likely syncopal episode related to dehydration secondary to elevated blood sugar. She's given IV fluids and insulin in the emergency department. She will be kept on telemetry for 24 hours for syncopal episode, she'll receive IV hydration close blood glucose monitoring. - Lab Data Result diagrams: 10/05/19 15:23 10/05/19 15:23 Lab Results 10/05/19 10/05/19 10/05/19 Range/Units 15:23 15:23 15:23 WBC 6.2 (3.8-10.6) k/uL RBC 4.56 (3.80-5.40) m/uL Hgb 13.7 (11.4-16.0) gm/dL Hct 40.8 (34.0-46.0) % MCV 89.4 (80.0-100.0) fL MCH 30.0 (25.0-35.0) pg MCHC 33.5 (31.0-37.0) g/dL RDW 12.7 (11.5-15.5) % Plt Count 230 (150-450) k/uL Neutrophils % 59 % Lymphocytes % 28 % Monocytes % 7 % Eosinophils % 3 % Basophils % 2 % Neutrophils # 3.6 (1.3-7.7) k/uL Lymphocytes # 1.7 (1.0-4.8) k/uL Monocytes # 0.4 (0-1.0) k/uL Eosinophils # 0.2 (0-0.7) k/uL Basophils # 0.1 (0-0.2) k/uL Sodium 132 L (137-145) mmol/L Potassium 4.5 (3.5-5.1) mmol/L Chloride 101 (98-107) mmol/L Carbon Dioxide 23 (22-30) mmol/L Anion Gap 8 mmol/L BUN 9 (7-17) mg/dL Creatinine 0.61 (0.52-1.04) mg/dL Est GFR (CKD-EPI)AfAm >90 (>60 ml/min/1.73 sqM) Est GFR (CKD-EPI)NonAf >90 (>60 ml/min/1.73 sqM) Glucose 519 H* (74-99) mg/dL Calcium 9.2 (8.4-10.2) mg/dL Magnesium 1.9 (1.6-2.3) mg/dL Total Bilirubin 1.0 (0.2-1.3) mg/dL AST 27 (14-36) U/L ALT 13 (4-34) U/L Alkaline Phosphatase 241 H (38-126) U/L Troponin I <0.012 (0.000-0.034) ng/mL Total Protein 6.7 (6.3-8.2) g/dL Albumin 3.6 (3.5-5.0) g/dL Influenza Type A RNA (Not Detectd) Influenza Type B (PCR) (Not Detectd) 10/05/19 Range/Units 15:30 WBC (3.8-10.6) k/uL RBC (3.80-5.40) m/uL Hgb (11.4-16.0) gm/dL Hct (34.0-46.0) % MCV (80.0-100.0) fL MCH (25.0-35.0) pg MCHC (31.0-37.0) g/dL RDW (11.5-15.5) % Plt Count (150-450) k/uL Neutrophils % % Lymphocytes % % Monocytes % % Eosinophils % % Basophils % % Neutrophils # (1.3-7.7) k/uL Lymphocytes # (1.0-4.8) k/uL Monocytes # (0-1.0) k/uL Eosinophils # (0-0.7) k/uL Basophils # (0-0.2) k/uL Sodium (137-145) mmol/L Potassium (3.5-5.1) mmol/L Chloride (98-107) mmol/L Carbon Dioxide (22-30) mmol/L Anion Gap mmol/L BUN (7-17) mg/dL Creatinine (0.52-1.04) mg/dL Est GFR (CKD-EPI)AfAm (>60 ml/min/1.73 sqM) Est GFR (CKD-EPI)NonAf (>60 ml/min/1.73 sqM) Glucose (74-99) mg/dL Calcium (8.4-10.2) mg/dL Magnesium (1.6-2.3) mg/dL Total Bilirubin (0.2-1.3) mg/dL AST (14-36) U/L ALT (4-34) U/L Alkaline Phosphatase (38-126) U/L Troponin I (0.000-0.034) ng/mL Total Protein (6.3-8.2) g/dL Albumin (3.5-5.0) g/dL Influenza Type A RNA Not Detected (Not Detectd) Influenza Type B (PCR) Not Detected (Not Detectd) Disposition Clinical Impression: Diabetes type 2, uncontrolled, Syncope, Hyperglycemia Disposition: ADMITTED IP TO THIS [facility] Condition: Stable Is patient prescribed a controlled substance at d/c from ED?: No Referrals: Kevyn Luciano DO [Primary Care Provider] - 1-2 days Decision to Admit Reason: Admit from EC Decision Date: 10/05/19 Decision Time: 16:36
[2019-10-05 16:42] LABS: Appearance,Urine Clear (Clear); Bilirubin,Urine Negative (Negative); Blood,Urine Negative (Negative); Color,Urine Light Yellow; Glucose,Urine (UA) 4+ (Negative); Ketones,Urine Trace (Negative); Leukocyte Esterase,Urine Negative (Negative); Nitrite,Urine Negative (Negative); PH, Urine 6.5 (5.0-8.0); Protein,Urine Negative (Negative); Specific Gravity,Urine 1.029 (1.001-1.035); Urobilinogen,Urine <2.0 mg/dL (<2.0)
[2019-10-05 16:45] LABS: INR 0.9 (<1.2); Partial Thromboplastin Time 24.2 sec (22.0-30.0); Prothrombin Time 9.7 sec (9.0-12.0)
[2019-10-05] MEDS: INSULIN ASPART (NovoLOG) 100 UNIT/ML VIAL SQ SCH (17:50)
[2019-10-05 20:07] LABS: Glucose,Whole Blood 237 mg/dL (75-99)
[2019-10-05] MEDS: DOCUSATE 100 MG CAP PO SCH (20:36)
[2019-10-05] MEDS ORDERED: LISINOPRIL 5 MG TAB PO SCH (21:00)
[2019-10-05] MEDS ORDERED: ATORVASTATIN 40 MG TAB PO SCH (21:00)
[2019-10-05] MEDS ORDERED: INSULIN DETEMIR (LEVEMIR) 100 UNIT/ML SYR SQ SCH (21:00)
[2019-10-06 04:03] VITALS: BP 115/72; PULSE 63; RESP 16; TEMP 97.8
[2019-10-06 07:01] LABS: Glucose,Whole Blood 89 mg/dL (75-99)
[2019-10-06] MEDS: INSULIN ASPART (NovoLOG) 100 UNIT/ML VIAL SQ SCH (07:57)
[2019-10-06] MEDS: DOCUSATE 100 MG CAP PO SCH (08:41)
[2019-10-06] MEDS ORDERED: SERTRALINE 50 MG TAB PO SCH (09:00)
[2019-10-06 09:23] LABS: Basophils # (A) 0.1 k/uL (0-0.2); Basophils % (A) 1 %; Eosinophils # (A) 0.2 k/uL (0-0.7); Eosinophils % (A) 3 %; HCT 40.5 % (34.0-46.0); HGB 12.9 gm/dL (11.4-16.0); Lymphocytes # (A) 1.2 k/uL (1.0-4.8); Lymphocytes % (A) 23 %; MCH 28.6 pg (25.0-35.0); MCHC 31.8 g/dL (31.0-37.0); MCV 89.9 fL (80.0-100.0); Mean Platelet Volume 8.5; Monocytes # (A) 0.3 k/uL (0-1.0); Monocytes % (A) 6 %; Neutrophils # (A) 3.4 k/uL (1.3-7.7); Neutrophils % (A) 64 %; Platelet Count 190 k/uL (150-450); RBC 4.51 m/uL (3.80-5.40); RDW 12.8 % (11.5-15.5); WBC 5.3 k/uL (3.8-10.6)
[2019-10-06 09:35] LABS: ALT 11 U/L (4-34); AST 22 U/L (14-36); African American GFR (CKD) >90 (>60 ml/min/1.73 sqM); Albumin 2.8 g/dL (3.5-5.0); Alkaline Phosphatase 133 U/L (38-126); Anion Gap 4 mmol/L; Blood Urea Nitrogen 10 mg/dL (7-17); Calcium 8.9 mg/dL (8.4-10.2); Carbon Dioxide 29 mmol/L (22-30); Chloride 107 mmol/L (98-107); Glucose 131 mg/dL (74-99); Non-African American GFR(CKD) >90 (>60 ml/min/1.73 sqM); Potassium 3.8 mmol/L (3.5-5.1); Sodium 140 mmol/L (137-145); Total Bilirubin 1.1 mg/dL (0.2-1.3); Total Protein 5.4 g/dL (6.3-8.2)
[2019-10-06] MEDS ORDERED: POLYETHYLENE GLYCOL 3350 17 GM POWD.PACK PO SCH (09:45)
[2019-10-06] MEDS ORDERED: SENNOSIDES-DOCUSATE SODIUM 1 EACH TAB PO SCH (09:45)
[2019-10-06 11:33] LABS: Glucose,Whole Blood 156 mg/dL (75-99)
--- NOTE | 2019-10-06 15:12 | P.HPIM ---
History of Present Illness H&P Date: 10/06/19 Chief Complaint: H & P & DC SUMMARY This is a 64-year-old female with history of diabetes mellitus, diverticulitis presented to the ER with complaints of near syncope , accompanied by occasional nonproductive cough, chills, sore throat. Patient was shopping at [employer] attempting to reach for 2 L bottle of pop-Pepsi, bottle fell off the shelf and hit the patient in the head. Stated she felt a little "woozy" after that, symptoms now subsided. States she did not lose consciousness. Denies chest pain, palpitations or shortness of breath. Denies nausea, vomiting, diarrhea. EKG normal sinus rhythm. Brain CT reported negative for intracranial hemorrhage or mass effect. Chest x-ray reported normal chest, no change. CBC unremarkable. Sodium 132, alk phos 241, troponin negative 1. UA negative. Influenza A and B not detected. Afebrile, normal WBC. IV fluid hydration initiated in addition to insulin. Review of Systems ROS Statement: Those systems with pertinent positive or pertinent negative responses have been documented in the HPI. ROS Other: All systems not noted in ROS Statement are negative. Constitutional: Patient denies any fever , prior chills . No generalized weakness or weight loss. Abdomen: Patient denies nausea vomiting and diarrhea and abdominal pain. Cardiovascular: Denies Chest pain, shortness of breath. No leg swelling. No palpitations.. Respiratory: Occasional nonproductive cough .No shortness of breath Neurologic: Patient denied any numbness or tingling headache. Musculoskeletal: Patient denies any complaints of joint swelling or deformity. Skin: Negative Genitourinary: No dysuria or hematuria. All other 14 point ROS negative except the above Past Medical History Past Medical History: Atrial Fibrillation, Asthma, Cancer, Chest Pain / Angina, Heart Failure, COPD, Diabetes Mellitus, Fibromyalgia, GERD/Reflux, Hyperlipidemia, Hypertension, Osteoarthritis (OA), Pneumonia, Rheumatoid Arthritis (RA), Seizure Disorder, Sleep Apnea/CPAP/BIPAP Additional Past Medical History / Comment(s): mult TIA-no effects, migraines, irregular heartbeat, varicose veins, no cpap used, oxygen PRN for migraines, hx ulcer, IBS, gout, UTI's, ovarian cancer, diverticulitis History of Any Multi-Drug Resistant Organisms: None Reported Past Surgical History: Appendectomy, Bariatric Surgery, Cholecystectomy, Hernia Repair, Hysterectomy, Joint Replacement, Orthopedic Surgery Additional Past Surgical History / Comment(s): lap band/later removed, gastric sleeve, colon resection for diverticulitis, rt knee replacement, "stent in nose- from fx nose", rt thumb- tendon surgery, Past Anesthesia/Blood Transfusion Reactions: Previous Problems w/ Anesthesia Additional Past Anesthesia/Blood Transfusion Reaction / Comment(s): spray used to numb throat-had anaphylaxis(does not know name). slow to wake up Past Psychological History: Anxiety, Depression, PTSD Additional Psychological History / Comment(s): . Smoking Status: Never smoker Past Alcohol Use History: None Reported Past Drug Use History: None Reported - Past Family History Father Family Medical History: Cancer Additional Family Medical History / Comment(s): . Mother Family Medical History: Coronary Artery Disease (CAD), Dementia, Diabetes Ekaterina litus, Thyroid Disorder Additional Family Medical History / Comment(s): diverticulitis, Sister(s) Family Medical History: Cancer Medications and Allergies Home Medications Medication Instructions Recorded Confirmed Type Insulin Glargine [Lantus] 40 unit SQ HS 05/14/19 10/06/19 History Atorvastatin [Lipitor] 40 mg PO HS #30 tab 06/09/19 10/06/19 Rx Sertraline HCl [Zoloft] 50 mg PO DAILY #30 tablet 06/11/19 10/06/19 Rx Lisinopril [Zestril] 5 mg PO HS #30 tab 07/21/19 10/06/19 Rx Butalb/APAP/Caff 50-325-40Mg 1 tab PO DAILY PRN 10/06/19 10/06/19 History [Fioricet 50-325-40] Docusate [Colace] 100 mg PO BID PRN 10/06/19 10/06/19 History Empagliflozin [Jardiance] 25 mg PO DAILY 10/06/19 10/06/19 History INSULIN ASPART (NovoLOG) [NovoLOG 15 unit SQ AC-BID 10/06/19 10/06/19 History (formulary)] Levofloxacin [Levaquin] 500 mg PO DAILY #5 tab 10/06/19 Rx Allergies Allergy/AdvReac Type Severity Reaction Status Date / Time ampicillin Allergy Rash/Hives Verified 10/05/19 17:29 codeine Allergy Rash/Hives Verified 10/05/19 17:29 erythromycin base Allergy Rash/Hives Verified 10/05/19 17:29 lorazepam [From Ativan] Allergy Unknown Verified 10/05/19 17:29 Sulfa (Sulfonamide Allergy Rash/Hives Verified 10/05/19 17:29 Antibiotics) Physical Exam Vitals: Vital Signs Temp Pulse Pulse Resp BP BP Pulse Ox 10/06/19 04:01 97.8 F 63 16 115/72 98 10/06/19 00:00 18 10/05/19 20:30 98.0 F 67 18 121/59 96 10/05/19 18:07 98.1 F 64 18 147/80 98 10/05/19 17:30 76 16 148/79 98 10/05/19 14:54 98.3 F 72 18 153/70 97 Intake and Output 10/05/19 10/06/19 10/06/19 22:59 06:59 14:59 Intake Total 1380 840 Balance 1380 840 Intake: Intake, IV Titration 300 600 Amount Sodium Chloride 0.9% 1, 300 600 000 ml @ 75 mls/hr IV . [id number] [facility] Rx#:[id number] Oral 1080 240 Other: Voiding Method Toilet # Voids 2 2 Weight 58.6 kg Patient is lying in the bed comfortably, no acute distress, awake alert and oriented.. HEENT: Normocephalic. Neck is supple. Pupils reactive. Nostrils clear. Oral cavity is moist. No pharyngeal erythema. Neck reveals no JVD, carotid bruits, or thyromegaly. CHEST EXAMINATION: Trachea is central. Symmetrical expansion. Lung lopez clear to auscultation and percussion. CARDIAC: Normal S1, S2 with no gallops. No murmurs ABDOMEN: Soft. Bowel sounds normal. No organomegaly. No abdominal bruits. Extremities: reveal no edema. No clubbing or cyanosis Neurologically awake, alert, oriented x3 with well-coordinated movements. No focal deficits noted Skin: No rash or skin lesions. Psychiatric: Coperative. Musculoskeletal: No joint swelling or deformity. Normal range of motion. Results CBC & Chem 7: 10/06/19 08:13 10/06/19 08:13 Labs: Abnormal Lab Results - Last 24 Hours (Table) 10/05/19 10/05/19 10/05/19 Range/Units 15:23 16:34 20:05 Sodium 132 L (137-145) mmol/L Glucose 519 H* (74-99) mg/dL POC Glucose (mg/dL) 237 H (75-99) mg/dL Alkaline Phosphatase 241 H (38-126) U/L Total Protein (6.3-8.2) g/dL Albumin (3.5-5.0) g/dL Urine Glucose (UA) 4+ H (Negative) Urine Ketones Trace H (Negative) 10/06/19 10/06/19 Range/Units 08:13 11:29 Sodium (137-145) mmol/L Glucose 131 H (74-99) mg/dL POC Glucose (mg/dL) 156 H (75-99) mg/dL Alkaline Phosphatase 133 H (38-126) U/L Total Protein 5.4 L (6.3-8.2) g/dL Albumin 2.8 L (3.5-5.0) g/dL Urine Glucose (UA) (Negative) Urine Ketones (Negative) Thrombosis Risk Factor Assmnt - Choose All That Apply Any of the Below Risk Factors Present?: Yes Each Factor Represents 1 point: Medical pt on bed rest Other Risk Factors: Yes Each Risk Factor Represents 2 Points: Patient confined to bed Other congenital or acquired thrombophilia - If yes, enter type in comment: No Thrombosis Risk Factor Assessment Total Risk Factor Score: 3 Thrombosis Risk Factor Assessment Level: Moderate Risk Assessment and Plan Assessment: Near syncope secondary to dehydration secondary to hyperglycemia, and possible mild bronchitis Diabetes type 2 insulin-dependent, uncontrolled with hyperglycemia, present on admission History of diverticulitis status post colon resection History of IBS Fibromyalgia GERD Hyperlipidemia Osteoarthritis Obstructive sleep apnea History of multiple TIAs no residual weakness History of atrial fibrillation currently not on any medications History of migraine headaches History of colon cancer History of bariatric surgery Anxiety/depression/PTSD Plan: Continue on current medication regime ,monitoring and symptomatic treatment. Denies chest pain, palpitations or shortness of breath. Denies lightheadedness, dizziness or focal deficits. Tolerating diet with no nausea vomiting or diarrhea. Ambulating in room, tolerated exertion well. Significant clinical improvement. Blood sugars controlled, 130s to 150s. Patient being discharged home in a stable condition with guarded prognosis. Patient reports she has been around her brother who has been sick with upper respiratory infection. Empiric antibiotics prescribed without Medrol Dosepak as patient presented with significant hyperglycemia. patient had to leave urgently,family member in ER. Discharge Medication List Insulin Glargine [Lantus] 40 unit SQ HS 05/14/19 [History] Atorvastatin [Lipitor] 40 mg PO HS #30 tab 06/09/19 [Rx] Sertraline HCl [Zoloft] 50 mg PO DAILY #30 tablet 06/11/19 [Rx] Lisinopril [Zestril] 5 mg PO HS #30 tab 07/21/19 [Rx] Butalb/APAP/Caff 50-325-40Mg [Fioricet 50-325-40] 1 tab PO DAILY PRN 10/06/19 [History] Docusate [Colace] 100 mg PO BID PRN 10/06/19 [History] Empagliflozin [Jardiance] 25 mg PO DAILY 10/06/19 [History] INSULIN ASPART (NovoLOG) [NovoLOG (formulary)] 15 unit SQ AC-BID 10/06/19 [History] Levofloxacin [Levaquin] 500 mg PO DAILY #5 tab 10/06/19 [Rx] The impression and plan of care has been dictated as directed. : I performed a history and examination of this patient, discussed the same with the dictator. I agree with the dictator's note ,documented as a scribe. Any additional findings or plans will be noted.
== END 2019-10-06 12:20 | disposition home or self-care (01) ==
LOC: EC 14:48 → 5NMEDONC 16:31
PROVIDERS: ADMIT Family Medicine; ATTEND Family Medicine
DX: E11.65 Type 2 diabetes mellitus with hyperglycemia (principal); E86.0 Dehydration; E78.5 Hyperlipidemia, unspecified; F32.9 Major depressive disorder, single episode, unspecified; F43.10 Post-traumatic stress disorder, unspecified; G40.909 Epilepsy, unspecified, not intractable, without status epilepticus; G47.33 Obstructive sleep apnea (adult) (pediatric); I11.0 Hypertensive heart disease with heart failure; I48.91 Unspecified atrial fibrillation; I50.9 Heart failure, unspecified; J44.9 Chronic obstructive pulmonary disease, unspecified; K21.9 Gastro-esophageal reflux disease without esophagitis; M06.9 Rheumatoid arthritis, unspecified; M19.90 Unspecified osteoarthritis, unspecified site; M79.7 Fibromyalgia; S09.90XA Unspecified injury of head, initial encounter; Z79.4 Long term (current) use of insulin; Z79.899 Other long term (current) drug therapy; Z82.49 Family history of ischemic heart disease and other diseases of the circulatory system; Z83.3 Family history of diabetes mellitus; Z85.038 Personal history of other malignant neoplasm of large intestine; Z86.73 Personal history of transient ischemic attack (TIA), and cerebral infarction without residual deficits; Z90.49 Acquired absence of other specified parts of digestive tract; Z90.710 Acquired absence of both cervix and uterus; Z96.651 Presence of right artificial knee joint; Z98.84 Bariatric surgery status; R05 Cough; J02.9 Acute pharyngitis, unspecified; Z88.1 Allergy status to other antibiotic agents; Z88.5 Allergy status to narcotic agent; Z88.0 Allergy status to penicillin; Z88.2 Allergy status to sulfonamides
CPT/HCPCS: 96361 ×2; 96360; 99285; 36415; 93005; 80053 ×2; 83605; 83735; 84484; 85025 ×2; 85610; 85730; 81003; 87502; 71046; 70450; G0378 ×2

== ENCOUNTER 2019-10-29 13:15 | Inpatient (IN) | payer OTHER, MEDICARE ==
[2019-10-29] MEDS ORDERED: SODIUM CHLORIDE 0.9% 500 ML 500 ML IV STA (13:36)
--- NOTE | 2019-10-29 13:52 | ED ---
General Adult HPI - General Chief complaint: Eye Problems Stated complaint: can't see out of left eye Time Seen by Provider: 10/29/19 13:20 Source: patient, RN notes reviewed, old records reviewed Mode of arrival: wheelchair Limitations: no limitations - History of Present Illness Initial comments: This is a 64-year-old female presents emergency Department with a past medical history significant for previous stroke. Patient comes in today complaining that she cannot see out of her left eye. Patient states started 10:30. Patient initially states she couldn't see anything and then tomorrow I talked to her she stated that it's blurry but she can make things out. Patient denies any headache patient denies any numbness weakness. Patient denies any slurred speech. Patient denies similar symptoms in the past. Patient denies any pain to the patient denies any redness patient denies any swelling. - Related Data Home Medications Medication Instructions Recorded Confirmed Insulin Glargine [Lantus] 40 unit SQ HS 05/14/19 10/06/19 Butalb/APAP/Caff 50-325-40Mg 1 tab PO DAILY PRN 10/06/19 10/06/19 [Fioricet 50-325-40] Docusate [Colace] 100 mg PO BID PRN 10/06/19 10/06/19 Empagliflozin [Jardiance] 25 mg PO DAILY 10/06/19 10/06/19 INSULIN ASPART (NovoLOG) [NovoLOG 15 unit SQ AC-BID 10/06/19 10/06/19 (formulary)] Previous Rx's Medication Instructions Recorded Atorvastatin [Lipitor] 40 mg PO HS #30 tab 06/09/19 Sertraline HCl [Zoloft] 50 mg PO DAILY #30 tablet 06/11/19 Lisinopril [Zestril] 5 mg PO HS #30 tab 07/21/19 Levofloxacin [Levaquin] 500 mg PO DAILY #5 tab 10/06/19 Allergies Allergy/AdvReac Type Severity Reaction Status Date / Time ampicillin Allergy Rash/Hives Verified 10/29/19 13:23 codeine Allergy Rash/Hives Verified 10/29/19 13:23 erythromycin base Allergy Rash/Hives Verified 10/29/19 13:23 lorazepam [From Ativan] Allergy Unknown Verified 10/29/19 13:23 Sulfa (Sulfonamide Allergy Rash/Hives Verified 10/29/19 13:23 Antibiotics) Review of Systems ROS Statement: Those systems with pertinent positive or pertinent negative responses have been documented in the HPI. ROS Other: All systems not noted in ROS Statement are negative. Past Medical History Past Medical History: Atrial Fibrillation, Asthma, Cancer, Chest Pain / Angina, Heart Failure, COPD, Diabetes Mellitus, Fibromyalgia, GERD/Reflux, Hyperlipidemia, Hypertension, Osteoarthritis (OA), Pneumonia, Rheumatoid Arthritis (RA), Seizure Disorder, Sleep Apnea/CPAP/BIPAP Additional Past Medical History / Comment(s): mult TIA-no effects, migraines, irregular heartbeat, varicose veins, no cpap used, oxygen PRN for migraines, hx ulcer, IBS, gout, UTI's, ovarian cancer, diverticulitis History of Any Multi-Drug Resistant Organisms: None Reported Past Surgical History: Appendectomy, Bariatric Surgery, Cholecystectomy, Hernia Repair, Hysterectomy, Joint Replacement, Orthopedic Surgery Additional Past Surgical History / Comment(s): lap band/later removed, gastric sleeve, colon resection for diverticulitis, rt knee replacement, "stent in nose- from fx nose", rt thumb- tendon surgery, macular degeneration of lt eye Past Anesthesia/Blood Transfusion Reactions: Previous Problems w/ Anesthesia Additional Past Anesthesia/Blood Transfusion Reaction / Comment(s): spray used to numb throat-had anaphylaxis(does not know name). slow to wake up Past Psychological History: Anxiety, Depression, PTSD Smoking Status: Never smoker Past Alcohol Use History: None Reported Past Drug Use History: None Reported - Past Family History Father Family Medical History: Cancer Additional Family Medical History / Comment(s): . Mother Family Medical History: Coronary Artery Disease (CAD), Dementia, Diabetes Mellitus, Thyroid Disorder Additional Family Medical History / Comment(s): diverticulitis, Sister(s) Family Medical History: Cancer General Exam - General Exam Comments Initial Comments: GENERAL: Patient is well-developed and well-nourished. Patient is nontoxic and well- hydrated and is in no acute distress. ENT: Neck is soft and supple. No significant lymphadenopathy is noted. Oropharynx is clear. Moist mucous membranes. Neck has full range of motion without eliciting any pain. EYES: The sclera were anicteric and conjunctiva were pink and moist. Extraocular movements were intact and pupils were equal round and reactive to light. Eyelids were unremarkable. PULMONARY: Unlabored respirations. Good breath sounds bilaterally. No audible rales rhonchi or wheezing was noted. CARDIOVASCULAR: There is a regular rate and rhythm without any murmurs gallops or rubs. ABDOMEN: Soft and nontender with normal bowel sounds. No palpable organomegaly was noted. There is no palpable pulsatile mass. SKIN: Skin is clear with no lesions or rashes and otherwise unremarkable. NEUROLOGIC: Patient is alert and oriented x3. Cranial nerves II through XII are grossly intact. Motor and sensory are also intact. Normal speech, volume and content. Symmetrical smile. Patient's finger to nose testing without any problem . I put my finger out of the visual field of her right eye and she still is able to touch the finger accurately and quickly MUSCULOSKELETAL: Normal extremities with adequate strength and full range of motion. No lower extremity swelling or edema. No calf tenderness. LYMPHATICS: No significant lymphadenopathy is noted PSYCHIATRIC: Normal psychiatric evaluation. Limitations: no limitations Course Vital Signs 10/29/19 13:18 Temperature 97.9 F Pulse Rate 69 Respiratory 20 Rate Blood Pressure 150/82 O2 Sat by Pulse 100 Oximetry Medical Decision Making - Medical Decision Making EKG shows normal sinus rhythm at 69 bpm MA interval is 152 QRS is 70 QT interval 414 QTC is 443. Patient's EKG shows no ST segment elevation or depression. CT brain shows no acute normalities. Chest x-ray shows no acute abnormalities. One pack and reevaluate the patient patient states that her vision remains blurred. Patient insisted that was sudden onset. I spoke with Dr. Luciano he agreed to admit the patient admitted the patient consult the neurology - Lab Data Result diagrams: 10/29/19 13:44 10/29/19 13:44 Lab Results 10/29/19 10/29/19 10/29/19 Range/Units 13:44 13:44 13:44 WBC 7.5 (3.8-10.6) k/uL RBC 4.81 (3.80-5.40) m/uL Hgb 14.2 (11.4-16.0) gm/dL Hct 43.7 (34.0-46.0) % MCV 90.8 (80.0-100.0) fL MCH 29.6 (25.0-35.0) pg MCHC 32.6 (31.0-37.0) g/dL RDW 13.0 (11.5-15.5) % Plt Count 226 (150-450) k/uL Neutrophils % 64 % Lymphocytes % 22 % Monocytes % 6 % Eosinophils % 3 % Basophils % 3 % Neutrophils # 4.8 (1.3-7.7) k/uL Lymphocytes # 1.7 (1.0-4.8) k/uL Monocytes # 0.4 (0-1.0) k/uL Eosinophils # 0.2 (0-0.7) k/uL Basophils # 0.2 (0-0.2) k/uL PT 9.4 (9.0-12.0) sec INR 0.9 (<1.2) APTT 23.8 (22.0-30.0) sec Sodium 135 L (137-145) mmol/L Potassium 4.2 (3.5-5.1) mmol/L Chloride 101 (98-107) mmol/L Carbon Dioxide 25 (22-30) mmol/L Anion Gap 9 mmol/L BUN 12 (7-17) mg/dL Creatinine 0.60 (0.52-1.04) mg/dL Est GFR (CKD-EPI)AfAm >90 (>60 ml/min/1.73 sqM) Est GFR (CKD-EPI)NonAf >90 (>60 ml/min/1.73 sqM) Glucose 448 H (74-99) mg/dL Calcium 9.7 (8.4-10.2) mg/dL Total Bilirubin 1.5 H (0.2-1.3) mg/dL AST 25 (14-36) U/L ALT 20 (4-34) U/L Alkaline Phosphatase 265 H (38-126) U/L Troponin I (0.000-0.034) ng/mL Total Protein 6.7 (6.3-8.2) g/dL Albumin 3.8 (3.5-5.0) g/dL 10/29/19 Range/Units 13:44 WBC (3.8-10.6) k/uL RBC (3.80-5.40) m/uL Hgb (11.4-16.0) gm/dL Hct (34.0-46.0) % MCV (80.0-100.0) fL MCH (25.0-35.0) pg MCHC (31.0-37.0) g/dL RDW (11.5-15.5) % Plt Count (150-450) k/uL Neutrophils % % Lymphocytes % % Monocytes % % Eosinophils % % Basophils % % Neutrophils # (1.3-7.7) k/uL Lymphocytes # (1.0-4.8) k/uL Monocytes # (0-1.0) k/uL Eosinophils # (0-0.7) k/uL Basophils # (0-0.2) k/uL PT (9.0-12.0) sec INR (<1.2) APTT (22.0-30.0) sec Sodium (137-145) mmol/L Potassium (3.5-5.1) mmol/L Chloride (98-107) mmol/L Carbon Dioxide (22-30) mmol/L Anion Gap mmol/L BUN (7-17) mg/dL Creatinine (0.52-1.04) mg/dL Est GFR (CKD-EPI)AfAm (>60 ml/min/1.73 sqM) Est GFR (CKD-EPI)NonAf (>60 ml/min/1.73 sqM) Glucose (74-99) mg/dL Calcium (8.4-10.2) mg/dL Total Bilirubin (0.2-1.3) mg/dL AST (14-36) U/L ALT (4-34) U/L Alkaline Phosphatase (38-126) U/L Troponin I <0.012 (0.000-0.034) ng/mL Total Protein (6.3-8.2) g/dL Albumin (3.5-5.0) g/dL Disposition Clinical Impression: Blurred vision, left eye Disposition: ADMITTED IP TO THIS [facility] Referrals: Kevyn Luciano DO [Primary Care Provider] - 1-2 days Time of Disposition: 15:49
[2019-10-29 14:08] LABS: ALT 20 U/L (4-34); AST 25 U/L (14-36); African American GFR (CKD) >90 (>60 ml/min/1.73 sqM); Albumin 3.8 g/dL (3.5-5.0); Alkaline Phosphatase 265 U/L (38-126); Anion Gap 9 mmol/L; Blood Urea Nitrogen 12 mg/dL (7-17); Calcium 9.7 mg/dL (8.4-10.2); Carbon Dioxide 25 mmol/L (22-30); Chloride 101 mmol/L (98-107); Glucose 448 mg/dL (74-99); Non-African American GFR(CKD) >90 (>60 ml/min/1.73 sqM); Potassium 4.2 mmol/L (3.5-5.1); Sodium 135 mmol/L (137-145); Total Bilirubin 1.5 mg/dL (0.2-1.3); Total Protein 6.7 g/dL (6.3-8.2)
[2019-10-29 14:09] LABS: Basophils # (A) 0.2 k/uL (0-0.2); Basophils % (A) 3 %; Eosinophils # (A) 0.2 k/uL (0-0.7); Eosinophils % (A) 3 %; HCT 43.7 % (34.0-46.0); HGB 14.2 gm/dL (11.4-16.0); Lymphocytes # (A) 1.7 k/uL (1.0-4.8); Lymphocytes % (A) 22 %; MCH 29.6 pg (25.0-35.0); MCHC 32.6 g/dL (31.0-37.0); MCV 90.8 fL (80.0-100.0); Mean Platelet Volume 8.1; Monocytes # (A) 0.4 k/uL (0-1.0); Monocytes % (A) 6 %; Neutrophils # (A) 4.8 k/uL (1.3-7.7); Neutrophils % (A) 64 %; Platelet Count 226 k/uL (150-450); RBC 4.81 m/uL (3.80-5.40); WBC 7.5 k/uL (3.8-10.6)
[2019-10-29 14:14] LABS: INR 0.9 (<1.2); Partial Thromboplastin Time 23.8 sec (22.0-30.0); Prothrombin Time 9.4 sec (9.0-12.0)
--- NOTE | 2019-10-29 14:15 | XR ---
EXAMINATION TYPE: XR chest 2V DATE OF EXAM: 10/29/2019 COMPARISON: 10/05/2019 HISTORY: Shortness of breath TECHNIQUE: Frontal and lateral views of the chest are obtained. FINDINGS: Scattered senescent parenchymal changes noted. Hyperinflation compatible with COPD. No evidence for infiltrate. No evidence for atelectasis. Heart size is stable. Mediastinal structures are stable and grossly unremarkable. No evidence for hilar prominence. Degenerative changes dorsal spine. IMPRESSION: 1. No evidence for acute pulmonary disease.
--- NOTE | 2019-10-29 14:15 | CT ---
EXAMINATION TYPE: CT brain wo con DATE OF EXAM: 10/29/2019 COMPARISON: 10/05/19 HISTORY: Neuro deficit, Vision loss of Lt eye CT DLP: 1036.[address] of the brain was performed. The ventricles, basal cisterns and sulci overlying the cerebral convexities demonstrate mild enlargem ent. There is no evidence for intracranial hemorrhage or sulcal effacement. There is decreased attenuation about the periventricular white matter and deep white matter of both c erebral hemispheres, compatible with chronic small vessel ischemia. Differential diagnosis does inclu de demyelination. No mass effects are seen. No midline shift. Osseous calvarium is intact. If symptoms persist consider MRI. IMPRESSION: 1. Age related atrophic and chronic small vessel ischemic change without acute intracranial process s een at this time.
[2019-10-29] MEDS ORDERED: ASPIRIN 81 MG PO STA (14:19)
[2019-10-29 22:50] LABS: Glucose,Whole Blood 232 mg/dL (75-99)
[2019-10-29 23:26] LABS: Glucose,Whole Blood 220 mg/dL (75-99)
[2019-10-30] MEDS ORDERED: DOCUSATE 100 MG CAP PO PRN (00:10)
[2019-10-30] MEDS ORDERED: ATORVASTATIN 40 MG TAB PO SCH (00:15)
[2019-10-30] MEDS ORDERED: ACETAMINOPHEN TAB 325 MG TAB PO PRN (00:17)
[2019-10-30] MEDS ORDERED: INSULIN DETEMIR (LEVEMIR) 100 UNIT/ML SYR SQ SCH ×2 (00:30→03:47)
[2019-10-30] MEDS: LISINOPRIL 5 MG TAB PO SCH ×2 (00:31→20:49)
[2019-10-30] MEDS: SERTRALINE 50 MG TAB PO SCH ×2 (00:31→20:49)
[2019-10-30] MEDS: INSULIN ASPART (NovoLOG) 100 UNIT/ML VIAL SQ SCH ×7 (00:31→20:38)
[2019-10-30 04:15] VITALS: RESP 16
[2019-10-30 04:51] LABS: Cholesterol 206 mg/dL (<200); HDL Cholesterol 48 mg/dL (40-60); LDL Cholesterol,Calculated 113 mg/dL (0-99); Triglycerides 226 mg/dL (<150)
[2019-10-30 06:30] LABS: Glucose,Whole Blood 110 mg/dL (75-99)
[2019-10-30] MEDS ORDERED: PANTOPRAZOLE 40 MG/10 ML VIAL IVP SCH (09:45)
--- NOTE | 2019-10-30 09:46 | P.HPIM ---
History of Present Illness H&P Date: 10/30/19 Chief Complaint: Left eye vision fuzzy This is a 64-year-old female with history of diabetes mellitus, diverticulitis, TIA, presented to the ER with complaints of blurred vision of left eye, initially started earlier in the morning. Reported she couldn't see anything, later stated her vision was fuzzy in the left eye. Denies any slurred speech, drooling, muscle weakness. Denies any fall, trauma. Denies any chest pain, palpitations or shortness of breath. Denies any lightheadedness, dizziness or focal deficits. Afebrile, normal WBC. Blood sugar on admission 448, T bili 1.5, alk phos 265, triglycerides 226 cholesterol 206, LDL 113 HDL 48. Systolic blood pressure up to the 170s. Patient states she has been compliant with her medication regime. Brain CT reported chronic small vessel ischemic change without acute intracranial process. Chest x-ray reported no evidence for acute pulmonary disease. EKG reported normal sinus rhythm, troponin negative. Review of Systems ROS Statement: Those systems with pertinent positive or pertinent negative responses have been documented in the HPI. ROS Other: All systems not noted in ROS Statement are negative. Past Medical History Past Medical History: Atrial Fibrillation, Asthma, Cancer, Chest Pain / Angina, Heart Failure, COPD, Diabetes Mellitus, Fibromyalgia, GERD/Reflux, Hyperlipidemia, Hypertension, Osteoarthritis (OA), Pneumonia, Rheumatoid Arthritis (RA), Seizure Disorder, Sleep Apnea/CPAP/BIPAP Additional Past Medical History / Comment(s): mult TIA-no effects, migraines, irregular heartbeat, varicose veins, no cpap used, oxygen PRN for migraines, hx ulcer, IBS, gout, UTI's, ovarian cancer, diverticulitis History of Any Multi-Drug Resistant Organisms: None Reported Past Surgical History: Appendectomy, Bariatric Surgery, Cholecystectomy, Hernia Repair, Hysterectomy, Joint Replacement, Orthopedic Surgery Additional Past Surgical History / Comment(s): lap band/later removed, gastric sleeve, colon resection for diverticulitis, rt knee replacement, "stent in nose- from fx nose", rt thumb- tendon surgery, macular degeneration of lt eye Past Anesthesia/Blood Transfusion Reactions: Previous Problems w/ Anesthesia Additional Past Anesthesia/Blood Transfusion Reaction / Comment(s): spray used to numb throat-had anaphylaxis(does not know name). slow to wake up Smoking Status: Never smoker - Past Family History Father Family Medical History: Cancer Additional Family Medical History / Comment(s): . Mother Family Medical History: Coronary Artery Disease (CAD), Dementia, Diabetes Mellitus, Thyroid Disorder Additional Family Medical History / Comment(s): diverticulitis, Sister(s) Family Medical History: Cancer Medications and Allergies Home Medications Medication Instructions Recorded Confirmed Type Insulin Glargine [Lantus] 40 unit SQ HS 05/14/19 10/29/19 History Atorvastatin [Lipitor] 40 mg PO HS #30 tab 06/09/19 10/29/19 Rx Lisinopril [Zestril] 5 mg PO HS #30 tab 07/21/19 10/29/19 Rx Docusate [Colace] 100 mg PO BID PRN 10/06/19 10/29/19 History INSULIN ASPART (NovoLOG) [NovoLOG 15 unit SQ AC-BID 10/06/19 10/29/19 History (formulary)] Sertraline HCl [Zoloft] 50 mg PO HS 10/29/19 10/29/19 History Allergies Allergy/AdvReac Type Severity Reaction Status Date / Time ampicillin Allergy Rash/Hives Verified 10/29/19 16:51 codeine Allergy Rash/Hives Verified 10/29/19 16:51 erythromycin base Allergy Rash/Hives Verified 10/29/19 16:51 lorazepam [From Ativan] Allergy Rash/Hives Verified 10/29/19 16:51 Sulfa (Sulfonamide Allergy Rash/Hives Verified 10/29/19 16:51 Antibiotics) Physical Exam Vitals: Vital Signs Temp Pulse Pulse Resp BP BP Pulse Ox 10/30/19 04:00 97.7 F 54 L 16 111/66 97 10/30/19 00:00 97.8 F 58 L 18 162/83 98 10/29/19 23:08 97.5 F L 56 L 18 125/61 99 10/29/19 22:39 55 L 16 151/64 99 10/29/19 22:00 52 L 16 159/82 99 10/29/19 21:00 54 L 16 151/69 99 10/29/19 20:00 56 L 18 142/71 99 10/29/19 18:45 68 18 170/67 97 10/29/19 16:56 66 18 159/73 10/29/19 13:18 97.9 F 69 20 150/82 100 Intake and Output 10/29/19 10/30/19 10/30/19 22:59 06:59 14:59 Intake Total 240 Balance 240 Intake: Oral 240 Other: Weight 64.2 kg PHYSICAL EXAM: VITAL SIGNS: As above GENERAL: Sitting up in bed, no acute distress HEENT: Conjunctivae normal. eyes normal. NECK: No JVD. No thyroid enlargement. No LNs CARDIOVASCULAR: S1, S2 regular.. No murmur RESPIRATION: Breath sounds diminished in the bases. No rhonchi or crackles. No bronchial breathing. ABDOMEN: Soft, nontender . No guarding. no masses palpable. No ascites, No hepatosplenomegaly.Bowel sounds heard. LEGS: No edema. no swelling PSYCHIATRY: Alert and oriented X3, mood and affect normal. NERVOUS SYSTEM: Cranial N 2-12 grossly normal. Moves all 4 limbs. No focal deficits. Strength and sensation grossly intact. Left eye blinks at objects coming at her. Skin: no rash Joints: No active swelling. No inflammation. Lymphatic system. No LN neck axilla or groin. Results CBC & Chem 7: 10/29/19 13:44 10/29/19 13:44 Labs: Abnormal Lab Results - Last 24 Hours (Table) 10/29/19 10/29/19 10/29/19 Range/Units 13:44 13:44 13:44 ESR 26 H (0-20) mm/hr Sodium 135 L (137-145) mmol/L Glucose 448 H (74-99) mg/dL POC Glucose (mg/dL) (75-99) mg/dL Total Bilirubin 1.5 H (0.2-1.3) mg/dL Alkaline Phosphatase 265 H (38-126) U/L Triglycerides 226 H (<150) mg/dL Cholesterol 206 H (<200) mg/dL LDL Cholesterol, Calc 113 H (0-99) mg/dL 10/29/19 10/29/19 10/30/19 Range/Units 22:44 23:24 06:28 ESR (0-20) mm/hr Sodium (137-145) mmol/L Glucose (74-99) mg/dL POC Glucose (mg/dL) 232 H 220 H 110 H (75-99) mg/dL Total Bilirubin (0.2-1.3) mg/dL Alkaline Phosphatase (38-126) U/L Triglycerides (<150) mg/dL Cholesterol (<200) mg/dL LDL Cholesterol, Calc (0-99) mg/dL Thrombosis Risk Factor Assmnt - Choose All That Apply Any of the Below Risk Factors Present?: Yes Each Factor Represents 1 point: Abnormal pulmonary function (COPD), Obesity (BMI >25) Other Risk Factors: Yes Each Risk Factor Represents 2 Points: Age 61-74 years Thrombosis Risk Factor Assessment Total Risk Factor Score: 4 Thrombosis Risk Factor Assessment Level: Moderate Risk Assessment and Plan Assessment: Possible acute TIA patient with complaints of Left eye, blurred vision. Suspect related to hyperglycemia, hypertension. Possible diabetic retinopathy but would expect that in both eyes. Hypertension, uncontrolled, up into the 170s on admission Diabetes mellitus, uncontrolled hyperglycemia, greater than 400 on admission. Hemoglobin A1c pending History of orthostatic hypotension, positive tilt table test January 2019 Preserved LV function, EF greater than 55%, per echo January 2019 History of diverticulitis status post colon resection History of IBS Fibromyalgia GERD Hyperlipidemia, on statin, mildly elevated LFTs Osteoarthritis Obstructive sleep apnea History of multiple TIAs no residual weakness History of atrial fibrillation currently not on any medications History of migraine headaches History of colon cancer History of bariatric surgery Anxiety/depression/PTSD Plan: Continue on current medication regime ,monitoring and symptomatic treatment. Carotid Doppler , echo ordered .Thigh high teds and PPI initiated. Orthostatic vital signs every shift. Hemoglobin A1c pending .Close monitoring of Accu-Cheks and blood pressure .Cardiac workup previously done at recent hospitalization. Neurology consult in place with recommendations pending. Patient has an appointment scheduled with her road crew member in [place] in 2 weeks. Home meds have been reviewed and resumed accordingly. Repeat labs pending. The impression and plan of care has been dictated as directed. : I performed a history and examination of this patient, discussed the same with the dictator. I agree with the dictator's note ,documented as a scribe. Any additional findings or plans will be noted.
--- NOTE | 2019-10-30 10:51 | US ---
EXAMINATION TYPE: US carotid duplex BILAT DATE OF EXAM: 10/30/2019 COMPARISON: NONE CLINICAL HISTORY: blurred vision. Vision problems with left eye. EXAM MEASUREMENTS: RIGHT: Peak Systolic Velocity (PSV) cm/sec ----- Right CCA: 90.0 ----- Right ICA: 92.9 ----- Right ECA: 112.2 ICA/CCA ratio: 1.0 RIGHT: End Diastole cm/sec ----- Right CCA: 27.5 ----- Right ICA: 26.0 ----- Right ECA: 13.6 LEFT: Peak Systolic Velocity (PSV) cm/sec ----- Left CCA: 114.1 ----- Left ICA: 114.1 ----- Left ECA: 102.3 ICA/CCA ratio: 1.0 LEFT: End Diastole cm/sec ----- Left CCA: 29.4 ----- Left ICA: 39.2 ----- Left ECA: 7.7 VERTEBRALS (direction of flow): Right Vertebral: Antegrade Left Vertebral: Antegrade Rhythm: Normal Grayscale, color Doppler, spectral Doppler imaging performed of the carotid arteries. Waveform analysis does not show significant stenosis of the internal carotid arteries. IMPRESSION: No hemodynamic significant stenosis of the proximal internal carotid arteries by Doppler criteria, an indirect measurement of carotid stenosis Criteria for Assigning % of Stenosis / Diameter reduction (Estimation based on the indirect measurements of the internal carotid artery velocities (ICA PSV). 1. Normal (no stenosis)=ICA PSV < 125 cm/s: ratio < 2.0: ICA EDV<40 cm/s. 2. Less than 50% stenosis=ICA PSV < 125 cm/s: ratio < 2.0: ICA EDV<40 cm/s. 3. 50 to 69% stenosis=ICA PSV of 125 to 230 cm/s: ration 2.0 ? 4.0: ICA EDV 40-100 cm/s. 4. Greater than 70% stenosis to near occlusion= ICA PSV > 230 cm/s: ratio > 4.0: ICA EDV > 100 cm/s. 5. Near occlusion= ICA PSV velocities may be low or undetectable: variable ratio and ICA EDV. 6. Total occlusion=unable to detect flow.
[2019-10-30 11:11] LABS: Basophils % (A) 1 %; Eosinophils # (A) 0.2 k/uL (0-0.7); Eosinophils % (A) 2 %; HCT 40.8 % (34.0-46.0); HGB 13.3 gm/dL (11.4-16.0); Lymphocytes # (A) 1.6 k/uL (1.0-4.8); Lymphocytes % (A) 19 %; MCH 29.5 pg (25.0-35.0); MCHC 32.7 g/dL (31.0-37.0); MCV 90.1 fL (80.0-100.0); Mean Platelet Volume 8.2; Monocytes # (A) 0.4 k/uL (0-1.0); Monocytes % (A) 5 %; Neutrophils # (A) 6.1 k/uL (1.3-7.7); Neutrophils % (A) 72 %; Platelet Count 234 k/uL (150-450); RBC 4.53 m/uL (3.80-5.40); RDW 12.8 % (11.5-15.5); WBC 8.4 k/uL (3.8-10.6)
[2019-10-30 11:29] LABS: African American GFR (CKD) >90 (>60 ml/min/1.73 sqM); Anion Gap 5 mmol/L; Blood Urea Nitrogen 14 mg/dL (7-17); Calcium 9.2 mg/dL (8.4-10.2); Carbon Dioxide 28 mmol/L (22-30); Chloride 105 mmol/L (98-107); Glucose 191 mg/dL (74-99); Non-African American GFR(CKD) >90 (>60 ml/min/1.73 sqM); Potassium 4.5 mmol/L (3.5-5.1); Sodium 138 mmol/L (137-145)
[2019-10-30] MEDS ORDERED: ASPIRIN 325 MG TAB PO SCH (12:00)
[2019-10-30 12:11] LABS: Glucose,Whole Blood 190 mg/dL (75-99)
--- NOTE | 2019-10-30 14:01 | P.CNNES ---
History of Present Illness Consult date: 10/30/19 Reason for Consult: Blurred L vision History of Present Illness: HISTORY OF PRESENT ILLNESS: Thank you for allowing me to evaluate Ms. Destiny Mejia. Ms. Mejia is a 64 year-old woman with PMHx of a.fib, asthma, heart failure, COPD, DM, fibromyalgia, GERD, HLD, HTN, osteoarthritis, rheumatoid arthritis, seizure disorder, sleep apnea, multiple TIAs, migiraines, IBS, gout, ovarian cancer, diverticulitis, macular degeneration in L eye, anxiety, depression, PTSD, multiple TIAs (pt does not remember symptoms of those events), presented to [facility] with complaints of complete vision loss in L eye with some improvement. Patient states that she woke up yesterday morning around 11:30am (she usually wakes up between 9:30 and 11:30) and noticed that her L vision was blurred. Patient has a history of L macular degeneration, but never really had blurred vision from her L eye. Patient reporting 5/10 headache that began about 5 days ago. Pt with history of migraine and states that her MD at [facility] gave patient O2 for treatment. Patient states she should be taking ASA but she hasnt' been. Pt lost her sister last year in March and became depressed, so she was not compliant with her insulin and her A1C in august was 13.5, which patient is well aware of. Pt reports good medication compliance. Pt lives with her sister Carmencita. Pt denies any recent sickness, nausea, vomiting, coughing, palpitations, weakness, or tingling, diarrhea or urinary symptoms. Pt states she had some numbness in her hands bilaterally several days ago, which has resolved. Pt has numbness in her feet bilaterally from peripheral neuropathy. Pt also endorses having had issues with her peripheral vision with her R eye, for which patient has been seeing an technician terminal and repeater. PAST MEDICAL HISTORY: a.fib, asthma, heart failure, COPD, DM, fibromyalgia, GERD, HLD, HTN, osteoarthritis, rheumatoid arthritis, seizure disorder, sleep apnea, multiple TIAs, migiraines, IBS, gout, ovarian cancer, diverticulitis, macular degeneration in L eye, anxiety, depression, PTSD PAST SURGICAL HISTORY: appendectomy, cholecystectomy, hernia repair, hysterectomy, lap band placement and removal, gastric sleeve, colon resection for diverticulitis, R knee replacement, R thumb tendon surgery HOME MEDICATIONS: insulin, atorvastatin, lisinopril, docusate, sertraline ALLERGIES: Ampicillin, codeine, erythromycin, lorazepam, sulfa SOCIAL HISTORY: Never smoker FAMILY HISTORY: Mother with CAD, dementia, DM, thyroid disorder, diverticulitis. REVIEW OF SYSTEMS: The 14 systems are reviewed and no additional points are identified compared to the review of systems documented history and physical PHYSICAL EXAMINATION: VITAL SIGNS: T 96.7 HR 63 BP 107/54 O2 sat 98% on 2L via NC GEN.: NAD, pleasant and cooperative HEENT: NCAT, sclera without icterus NECK: Supple SKIN AND EXTREMITIES: Warm to touch, no edema NEURO: MENTAL STATUS: Patient alert and oriented to self, place, time. Able to name the current president. Speech fluent, able to name and repeat, following all commands readily. No right and left disorientation, neglect. CRANIAL NERVES II THROUGH XII: II: Pupils are equal and reactive to light symmetrically. Visual lopez defect in R upper and lower quadrants. Pt able to see finger movement with L eye but cannot count. III, IV, : Some L eye ptosis (sister states that she's looked this way all her life). Extraocular movements full. No nystagmus. V: Facial sensation intact from V1-3. VII. No clear facial asymmetry. VIII: Hearing intact to finger rub bilaterally. IX, X: Symmetric palate elevation. XI: Shoulder shrug intact. XII: Tongue midline without fasciculation or atrophy. MOTOR: Normal bulk/tone. No pronator drift or tremor. Strength is 5/5 throughout all 4 extremities. SENSORY: Intact to light touch, temperature, pinprick in all 4 extremities. Romberg is negative. REFLEXES: 2+ throughout. Toes are downgoing. No clonus. Joel's is absent COORDINATION: Finger to nose and heel to carroll intact. No dysmetria. Rapid alternating movements with good speed and accuracy. GAIT: Narrow-based and stable. Able to toe/heel/tandem walk DIAGNOSTIC TESTING: LABORATORY: WBC 7.5 Hgb 14.2 Platelet 226 Na 135 K 4.2 Cl 101 CO2 25 BUN 12 Cr 0.60 glucose 448 AST 25 ALT 20 AlkPhos 265 total cholesterol 206 LDL 113 HDL 48 TG 226 A1C (in 08/25/2019) 13.5 IMAGING: CT Head w/o contrast 10/29/2019: age-related atrophic and chronic small vessel ischemic change without acute intracranial process Carotid Doppler 10/30/2019: No hemodynamic sign. stenosis of the proximal ICAs by Doppler criteria ASSESSMENT: 64 year-old woman with PMHx of a.fib, asthma, heart failure, COPD, DM, fibromyalgia, GERD, HLD, HTN, osteoarthritis, rheumatoid arthritis, seizure disorder, sleep apnea, multiple TIAs, migiraines, IBS, gout, ovarian cancer, d iverticulitis, macular degeneration in L eye, anxiety, depression, PTSD, multiple TIAs (pt does not remember symptoms of those events), presented [facility] with complaints of complete vision loss in L eye with some improvement. RECOMMENDATIONS: 1. MRI brain without contrast 2. Transthoracic echocardiogram obtained; awaiting final read 3. Cardiac monitoring 4. Permissive HTN for 24-48 hours SBP >220. Give labetalol 10mg IV q1h PRN for SBP >220 DBP >110 5. ASA 81mg qday 6. Atorvastatin 80mg qhs 7. Labs: A1C, TSH, FLP 8. PT/OT/ST per protocol 9. Discussed with patient about stroke prevention guidelines. Medication compliance, hypertension/diabetes control, lifestyle changes including no smoking, drinking in moderation, losing weight, exercising, eating healthier 10. Neurology will continue to follow 11. Patient needs to follow up with neurologist as outpatient with her 1-2 weeks of discharge 12. Discussed ED precautions: return to ED if having severe headache, nausea, vomiting, vision deficits, speech difficulty, facial asymmetry, weakness, numbness or tingling. So I will Past Medical History Past Medical History: Atrial Fibrillation, Asthma, Cancer, Chest Pain / Angina, Heart Failure, COPD, Diabetes Mellitus, Fibromyalgia, GERD/Reflux, Hyperlipidemia, Hypertension, Osteoarthritis (OA), Pneumonia, Rheumatoid Arthritis (RA), Seizure Disorder, Sleep Apnea/CPAP/BIPAP Additional Past Medical History / Comment(s): mult TIA-no effects, migraines, irregular heartbeat, varicose veins, no cpap used, oxygen PRN for migraines, hx ulcer, IBS, gout, UTI's, ovarian cancer, diverticulitis History of Any Multi-Drug Resistant Organisms: None Reported Past Surgical History: Appendectomy, Bariatric Surgery, Cholecystectomy, Hernia Repair, Hysterectomy, Joint Replacement, Orthopedic Surgery Additional Past Surgical History / Comment(s): lap band/later removed, gastric sleeve, colon resection for diverticulitis, rt knee replacement, "stent in nose- from fx nose", rt thumb- tendon surgery, macular degeneration of lt eye Past Anesthesia/Blood Transfusion Reactions: Previous Problems w/ Anesthesia Additional Past Anesthesia/Blood Transfusion Reaction / Comment(s): spray used to numb throat-had anaphylaxis(does not know name). slow to wake up Smoking Status: Never smoker - Past Family History Father Family Medical History: Cancer Additional Family Medical History / Comment(s): . Mother Family Medical History: Coronary Artery Disease (CAD), Dementia, Diabetes Mellitus, Thyroid Disorder Additional Family Medical History / Comment(s): diverticulitis, Sister(s) Family Medical History: Cancer Medications and Allergies Home Medications Medication Instructions Recorded Confirmed Type Insulin Glargine [Lantus] 40 unit SQ HS 05/14/19 10/29/19 History Atorvastatin [Lipitor] 40 mg PO HS #30 tab 06/09/19 10/29/19 Rx Lisinopril [Zestril] 5 mg PO HS #30 tab 07/21/19 10/29/19 Rx Docusate [Colace] 100 mg PO BID PRN 10/06/19 10/29/19 History INSULIN ASPART (NovoLOG) [NovoLOG 15 unit SQ AC-BID 10/06/19 10/29/19 History (formulary)] Sertraline HCl [Zoloft] 50 mg PO HS 10/29/19 10/29/19 History Allergies Allergy/AdvReac Type Severity Reaction Status Date / Time ampicillin Allergy Rash/Hives Verified 10/29/19 16:51 codeine Allergy Rash/Hives Verified 10/29/19 16:51 erythromycin base Allergy Rash/Hives Verified 10/29/19 16:51 lorazepam [From Ativan] Allergy Rash/Hives Verified 10/29/19 16:51 Sulfa (Sulfonamide Allergy Rash/Hives Verified 10/29/19 16:51 Antibiotics) Physical Examination - Vital Signs Vital Signs: Vital Signs Temp Pulse Pulse Resp BP BP Pulse Ox 10/30/19 08:00 96.7 F L 63 107/54 98 10/30/19 04:00 97.7 F 54 L 16 111/66 97 10/30/19 00:00 97.8 F 58 L 18 162/83 98 02/05/20 23:08 97.5 F L 56 L 18 125/61 99 10/29/19 22:39 55 L 16 151/64 99 10/29/19 22:00 52 L 16 159/82 99 10/29/19 21:00 54 L 16 151/69 99 10/29/19 20:00 56 L 18 142/71 99 10/29/19 18:45 68 18 170/67 97 10/29/19 16:56 66 18 159/73 10/29/19 13:18 97.9 F 69 20 150/82 100 Intake and Output 10/29/19 10/30/19 10/30/19 22:59 06:59 14:59 Intake Total 240 240 Balance 240 240 Intake: Oral 240 240 Other: Weight 64.2 kg Results - Laboratory Findings CBC and BMP: 10/30/19 10:58 10/30/19 10:58 Abnormal Lab Findings: Abnormal Labs 10/29/19 10/29/19 10/29/19 13:44 13:44 13:44 ESR 26 H Sodium 135 L Glucose 448 H POC Glucose (mg/dL) Total Bilirubin 1.5 H Alkaline Phosphatase 265 H Triglycerides 226 H Cholesterol 206 H LDL Cholesterol, Calc 113 H 10/29/19 10/29/19 10/30/19 22:44 23:24 06:28 ESR Sodium Glucose POC Glucose (mg/dL) 232 H 220 H 110 H Total Bilirubin Alkaline Phosphatase Triglycerides Cholesterol LDL Cholesterol, Calc
[2019-10-30 15:14] LABS: Hemoglobin A1C 11.4 % (4.0-6.0)
[2019-10-30 16:58] LABS: Glucose,Whole Blood 110 mg/dL (75-99)
--- NOTE | 2019-10-30 18:56 | ECHOF ---
Referral Reason:LV fx if not completed within the last 6 mths MEASUREMENTS -------- HEIGHT: 152.4 cm WEIGHT: 64.0 kg BP: 107/54 RVIDd: 2.9 cm (< 3.3) IVSd: 1.0 cm (0.6 - 1.1) LVIDd: 4.8 cm (3.9 - 5.3) LVPWd: 1.4 cm (0.6 - 1.1) IVSs: 1.3 cm LVIDs: 3.6 cm LVPWs: 1.7 cm LA Diam: 3.6 cm (2.7 - 3.8) LAESV Index (A-L): 25.66 ml/m Ao Diam: 2.4 cm (2.0 - 3.7) AV Cusp: 1.6 cm (1.5 - 2.6) LA Diam: 4.0 cm (2.7 - 3.8) MV EXCURSION: 18.395 mm (> 18.000) MV EF SLOPE: 62 mm/s (70 - 150) EPSS: 0.6 cm MV E Kj: 0.64 m/s MV DecT: 266 ms MV A Kj: 0.90 m/s MV E/A Ratio: 0.72 RAP: 5.00 mmHg RVSP: 21.59 mmHg FINDINGS -------- Sinus rhythm. This was a technically good study. LV size, wall thickness and systolic function are normal, with an EF greater than 55%. The diastoli c filling pattern is normal for the age of the patient 11.93. The right ventricle is normal in size. The left atrial size is normal. Normal LA size by volume 22+/-6 ml/m2. The right atrial size is normal. The aortic valve is trileaflet, and appears structurally normal. No aortic stenosis or regurgitation. Redundant MV Leaflet Mild tricuspid regurgitation present. Right ventricular systolic pressure is normal at < 35 mmHg. There is no evidence of pulmonary hypertension. There is no pulmonic regurgitation present. The aortic root size is normal. There is no pericardial effusion. CONCLUSIONS -------- 1. Sinus rhythm. 2. This was a technically good study. 3. LV size, wall thickness and systolic function are normal, with an EF greater than 55%. 4. The diastolic filling pattern is normal for the age of the patient 11.93 5. The right ventricle is normal in size. 6. The left atrial size is normal. 7. Normal LA size by volume 22+/-6 ml/m2. 8. The right atrial size is normal. 9. The aortic valve is trileaflet, and appears structurally normal. No aortic stenosis or regurgitati on. 10. Redundant MV Leaflet 11. Mild tricuspid regurgitation present. 12. Right ventricular systolic pressure is normal at < 35 mmHg. 13. There is no evidence of pulmonary hypertension. 14. There is no pulmonic regurgitation present. 15. The aortic root size is normal. 16. There is no pericardial effusion. SEAT COVER CUTTER: Ivon Rodriguez RDCS
[2019-10-30 20:39] LABS: Glucose,Whole Blood 62 mg/dL (75-99)
[2019-10-30] MEDS ORDERED: ATORVASTATIN 80 MG TAB PO SCH (21:00)
[2019-10-30 21:53] LABS: Glucose,Whole Blood 151 mg/dL (75-99)
[2019-10-31 05:47] LABS: Glucose,Whole Blood 258 mg/dL (75-99)
[2019-10-31] MEDS: INSULIN ASPART (NovoLOG) 100 UNIT/ML VIAL SQ SCH ×3 (06:32→12:38)
[2019-10-31 07:21] LABS: Basophils # (A) 0.1 k/uL (0-0.2); Basophils % (A) 1 %; Eosinophils # (A) 0.1 k/uL (0-0.7); Eosinophils % (A) 2 %; HCT 39.2 % (34.0-46.0); HGB 12.7 gm/dL (11.4-16.0); Lymphocytes # (A) 1.9 k/uL (1.0-4.8); Lymphocytes % (A) 24 %; MCH 29.5 pg (25.0-35.0); MCHC 32.3 g/dL (31.0-37.0); MCV 91.4 fL (80.0-100.0); Mean Platelet Volume 8.1; Monocytes # (A) 0.5 k/uL (0-1.0); Monocytes % (A) 6 %; Neutrophils # (A) 5.3 k/uL (1.3-7.7); Neutrophils % (A) 66 %; Platelet Count 215 k/uL (150-450); RDW 13.1 % (11.5-15.5)
[2019-10-31 07:30] LABS: African American GFR (CKD) >90 (>60 ml/min/1.73 sqM); Anion Gap 5 mmol/L; Blood Urea Nitrogen 12 mg/dL (7-17); Carbon Dioxide 27 mmol/L (22-30); Chloride 107 mmol/L (98-107); Cholesterol 128 mg/dL (<200); Glucose 250 mg/dL (74-99); HDL Cholesterol 36 mg/dL (40-60); LDL Cholesterol,Calculated 71 mg/dL (0-99); Non-African American GFR(CKD) >90 (>60 ml/min/1.73 sqM); Potassium 3.9 mmol/L (3.5-5.1); Sodium 139 mmol/L (137-145); Triglycerides 106 mg/dL (<150)
[2019-10-31] MEDS ORDERED: PANTOPRAZOLE 40 MG TABLET PO SCH (07:30)
--- NOTE | 2019-10-31 08:51 | MR ---
EXAMINATION TYPE: MR brain wo con DATE OF EXAM: 10/31/2019 COMPARISON: 10/29/2019 CT brain HISTORY: concern for stroke TECHNIQUE: T1-weighted sagittal, T2, FLAIR, and diffusion axial, and T2 coronal coronal views of the brain are submitted. FINDINGS: There is no evidence of acute ischemia. There are areas of abnormal signal involving the hayley suggest asuncion of remote ischemia. Changes of chronic sinusitis noted. There are a few scattered focal areas of abnormal signal within the white matter which are nonspecifi c. Mild generalized degenerative change noted. There is no mass effect. Appears to be hyperostosis o f the occiput. Craniocervical junction maintained. Cerebellar tonsils are somewhat low-lying in position at the leve l the foramen magnum. Sella turcica has a normal appearance. No cerebellopontine angle mass. IMPRESSION: 1. No acute intracranial process. 2. Mild degenerative and nonspecific white matter changes most typical remote microvascular ischemia. Demyelinating process not entirely excluded. 3. Abnormal signal noted within the hayley diffusely most likely in the basis of remote ischemia. If cl inically warranted a short-term follow-up post contrast exam could be obtained. 4. Cerebellar tonsils low-lying in position at the level of foramen magnum.
[2019-10-31] MEDS ORDERED: ASPIRIN 81 MG PO SCH (09:00)
[2019-10-31 09:16] VITALS: PULSE 62; TEMP 97.7
[2019-10-31 09:20] LABS: Glucose,Whole Blood 212 mg/dL (75-99)
[2019-10-31] MEDS ORDERED: Potassium Replacement Protocol 1 EACH MISC MISCELLANE PRN (10:47)
[2019-10-31 11:39] VITALS: BP 119/57
[2019-10-31 12:17] LABS: Glucose,Whole Blood 45 mg/dL (75-99)
[2019-10-31 12:35] LABS: Glucose,Whole Blood 64 mg/dL (75-99)
[2019-10-31 12:44] LABS: Glucose,Whole Blood 75 mg/dL (75-99)
[2019-10-31 13:32] VITALS: BMI 27.6
[2019-10-31 14:00] LABS: Glucose,Whole Blood 273 mg/dL (75-99)
--- NOTE | 2019-10-31 14:06 | P.PN ---
Progress Note - Text Progress Note Date: 10/31/19 SUBJECTIVE/INTERVAL EVENTS: No acute overnight events. Pt states that her vision is back to baseline. Denies any headache, weakness, numbness or tingling PHYSICAL EXAMINATION: VITAL SIGNS: T 97.7 HR 62 RR 16 BP 112/66 O2 sat 98% on RA GEN.: NAD, pleasant and cooperative HEENT: NCAT, sclera without icterus NECK: Supple SKIN AND EXTREMITIES: Warm to touch, no edema NEURO: MENTAL STATUS: Patient alert and oriented to self, place, time. Able to name the current president. Speech fluent, able to name and repeat, following all commands readily. No right and left disorientation, neglect. CRANIAL NERVES II THROUGH XII: II: Pupils are equal and reactive to light symmetrically. Visual lopez defect in R upper and lower quadrants. Pt able to see finger movement with L eye but cannot count. III, IV, : Some L eye ptosis (sister states that she's looked this way all her life). Extraocular movements full. No nystagmus. V: Facial sensation intact from V1-3. VII. No clear facial asymmetry. VIII: Hearing intact to finger rub bilaterally. IX, X: Symmetric palate elevation. XI: Shoulder shrug intact. XII: Tongue midline without fasciculation or atrophy. MOTOR: Normal bulk/tone. No pronator drift or tremor. Strength is 5/5 throughout all 4 extremities. SENSORY: Intact to light touch, temperature, pinprick in all 4 extremities. Romberg is negative. REFLEXES: 2+ throughout. Toes are downgoing. No clonus. Joel's is absent COORDINATION: Finger to nose and heel to carroll intact. No dysmetria. Rapid alternating movements with good speed and accuracy. GAIT: Narrow-based and stable. Able to toe/heel/tandem walk DIAGNOSTIC TESTING: LABORATORY: WBC 7.5 Hgb 14.2 Platelet 226 Na 135 K 4.2 Cl 101 CO2 25 BUN 12 Cr 0.60 glucose 448 AST 25 ALT 20 AlkPhos 265 total cholesterol 206 LDL 113 HDL 48 TG 226 A1C (in 08/25/2019) 13.5 TSH 0.739 total cholesterol 128 LDL 71 HDL 36 TG 106 IMAGING: MRI brain w/o contrast 10/31/2019: No acute intracranial process. Mild degenerative and nonspecific white matter changes most typical remote microvascular ischemia. Abnormal signal noted within the hayley diffusely most likely in the basis of remote ischemia. Cerebellar tonsils low-lying in position at the level of foramen magnum CT Head w/o contrast 10/29/2019: age-related atrophic and chronic small vessel ischemic change without acute intracranial process Carotid Doppler 10/30/2019: No hemodynamic sign. stenosis of the proximal ICAs by Doppler criteria TTE 10/30/2019: SR. EF <55%. RV/LA/RA sizes are normal Cardiac monitoring No atrial arrhythmia noted thus far ASSESSMENT: 64 year-old woman with PMHx of a.fib, asthma, heart failure, COPD, DM, fibromyalgia, GERD, HLD, HTN, osteoarthritis, rheumatoid arthritis, seizure disorder, sleep apnea, multiple TIAs, migiraines, IBS, gout, ovarian cancer, diverticulitis, macular degeneration in L eye, anxiety, depression, PTSD, multiple TIAs (pt does not remember symptoms of those events), presented to [facility] with complaints of complete vision loss in L eye with some improvement. MRI brain w/o contrast with no acute infarct. Possible remote ischemic event in the hayley. Unclear diagnosis of a.fib. Patient was seen by cardiology in 05/2019, and there is no mention of a.fib in their note other than on the usual list of PMHx. RECOMMENDATIONS: 1. If diagnosis of a.fib unclear, patient needs to be discharged with long-term cardiac monitoring. 2. If diagnosis of a.fib confirmed, patient needs to be started on anticoagulation (Xarelto preferred) 3. ASA 81mg qday (discontinue if starting anticoagulation) 4. Atorvastatin 40mg qhs 5. Labs: A1C 6. Ophthalmology follow-up as outpatient 7. Discussed with patient about stroke prevention guidelines. Medication compliance, hypertension/diabetes control, lifestyle changes including no smoking, drinking in moderation, losing weight, exercising, eating healthier 8. Neurology is not available over the weekend in-house. However, feel free to [employer] message me over the weekend if you have any questions or concerns 9. Patient needs to follow up with neurologist as outpatient with her 1-2 weeks of discharge 10. Discussed ED precautions: return to ED if having severe headache, nausea, vomiting, vision deficits, speech difficulty, facial asymmetry, weakness, numbness or tingling. So I will
--- NOTE | 2019-10-31 15:40 | P.DS ---
Providers Date of admission: 10/30/19 11:18 Expected date of discharge: 10/31/19 Attending physician: [facility] Consults: 10/29/19 15:50 Consult Physician Routine Consulting Provider: Collette Solorzano Consult Reason/Comments: Blurred vision left eye Do you want consulting provider notified?: Yes Primary care physician: [facility]yn [facility] Course: Final Diagnoses: This is a 64-year-old female with history of diabetes mellitus, diverticulitis, TIA, presented to the ER with complaints of blurred vision of left eye, initially started earlier in the morning. Reported she couldn't see anything, later stated her vision was fuzzy in the left eye. Denies any slurred speech, drooling, muscle weakness. Denies any fall, trauma. Denies any chest pain, palpitations or shortness of breath. Denies any lightheadedness, dizziness or focal deficits. Afebrile, normal WBC. Blood sugar on admission 448, T bili 1.5, alk phos 265, triglycerides 226 cholesterol 206, LDL 113 HDL 48. Systolic blood pressure up to the 170s. Patient states she has been compliant with her medication regime. Brain CT reported chronic small vessel ischemic change without acute intracranial process. Chest x-ray reported no evidence for acute pulmonary disease. EKG reported normal sinus rhythm, troponin negative. Evaluated by neurology. Neuro workup completed. Carotid Doppler reported no hemodynamically significant stenosis. Echo reported EF greater than 55%. Brain MRI ordered, pending. Hemoglobin A1c 11.4. Patient will require diabetes education classes outpatient at PCPs office. Fluctuating blood sugars, hypoglycemic earlier as patient only consumed 50% of meal yet received 15 units of log. Patient has been advised to maintain log of Accu-Cheks before meals and at bedtime, take to follow-up visit with PCP for further recommendations. Denies chest pain, palpitations or shortness of breath. Denies lightheadedness, dizziness or focal deficits. Left eye blurred vision reported as resolved. Patient will be discharged home in a stable condition with guarded prognosis pending negative MRI, neurology clearance and final DC recommendations. EXAM: GENERAL: Alert and oriented 3, no acute distress. HEENT: Conjunctivae normal. eyes normal. CARDIOVASCULAR: S1, S2 regular. No murmur RESPIRATION: Breath sounds diminished in the bases. No rhonchi or crackles. ABDOMEN: Soft, nontender . No guarding. no masses palpable. Bowel sounds heard. NERVOUS SYSTEM: No focal deficits. Possible acute TIA patient with complaints of Left eye, blurred vision. Suspect related to hyperglycemia, hypertension. Possible diabetic retinopathy but would expect that in both eyes. Hypertension, uncontrolled, up into the 170s on admission, controlled. Diabetes mellitus, uncontrolled hyperglycemia, greater than 400 on admission. Hemoglobin A1c 11.4. History of orthostatic hypotension, positive tilt table test January 2019 Preserved LV function, EF greater than 55%, per echo January 2019 History of diverticulitis status post colon resection History of IBS Fibromyalgia GERD Hyperlipidemia, on statin, mildly elevated LFTs Osteoarthritis Obstructive sleep apnea History of multiple TIAs no residual weakness History of atrial fibrillation currently not on any medications History of migraine headaches History of colon cancer History of bariatric surgery Anxiety/depression/PTSD The impression and plan of care has been dictated as directed. : I performed a history and examination of this patient, discussed the same with the dictator. I agree with the dictator's note ,documented as a scribe. Any additional findings or plans will be noted. Patient Condition at Discharge: Stable Plan - Discharge Summary Discharge Rx Participant: No New Discharge Prescriptions: New Aspirin 81 mg PO DAILY chew Pantoprazole [Protonix] 40 mg PO AC-BRKFST #30 tablet.[address] Humphrey Insulin Glargine [Lantus] 40 unit SQ HS Atorvastatin [Lipitor] 40 mg PO HS #30 tab Lisinopril [Zestril] 5 mg PO HS #30 tab Docusate [Colace] 100 mg PO BID PRN PRN Reason: Constipation INSULIN ASPART (NovoLOG) [NovoLOG (formulary)] 15 unit SQ AC-BID Sertraline HCl [Zoloft] 50 mg PO HS Discharge Medication List Insulin Glargine [Lantus] 40 unit SQ HS 05/14/19 [History] Atorvastatin [Lipitor] 40 mg PO HS #30 tab 06/09/19 [Rx] Lisinopril [Zestril] 5 mg PO HS #30 tab 07/21/19 [Rx] Docusate [Colace] 100 mg PO BID PRN 10/06/19 [History] INSULIN ASPART (NovoLOG) [NovoLOG (formulary)] 15 unit SQ AC-BID 10/06/19 [History] Sertraline HCl [Zoloft] 50 mg PO HS 10/29/19 [History] Aspirin 81 mg PO DAILY chew 10/31/19 [Rx] Pantoprazole [Protonix] 40 mg PO AC-BRKFST #30 tablet. 10/31/19 [Rx] Follow up Appointment(s)/Referral(s): Kevyn Luciano DO [Primary Care Provider] - 11/03/19 10:20 am Leona Torres MD [STAFF PHYSICIAN] - 11/05/19 10:00 am (Neurologist.) Patient Instructions/Handouts: Transient Ischemic Attack (DC), Basic Carbohydrate Counting (DC), Blurred Vision (ED) Activity/Diet/Wound Care/Special Instructions: Pending negative MRIs/neurology clearance with final DC recommendations Diabetes education at Dr. Luciano office: hemoglobin A1c 11.4 Diet: Consistent carb Accu-Cheks before meals and at bedtime, maintain log and take to follow-up visit with PCP for further recommendations Activity: Limited until follow-up CVA/TIA 1. Call your physician with any worsening symptoms of stroke such as, increased weakness, new numbness or tingling, mental status changes, visual changes or new loss of sensation. 2. Stroke prevention methods include lowering cholesterol, thinning your blood, preventing high blood pressure, keeping tight control of your diabetes, increasing exercise/activity, smoking cessation and alcohol cessation. Check your blood sugars before each meal & before bed. Keep a log as well as what you eat at each meal and take to Dr Luciano' office. Do not take 15 units of novolog at meals if you are only eating small amounts. Care Plan Goals (MU): Please follow up with regular eye doctor within one week from being discharged.
[2019-10-31] MEDS ORDERED: ATORVASTATIN 40 MG TAB PO SCH (21:00)
--- NOTE | 2019-11-04 15:38 | CDI ---
Documentation Clarification Form Date: 11/04/19 From: Francine Garcia Phone: If you have a question about this query, please contact Xin Mann, Property Adjuster at [phone] between 8am and 5pm. Admit Date: 10/29/19 Discharge Date:10/31/19 Patient Name: Destiny Mejia Visit Number: [id number] ATTENTION: The Clinical Documentation Specialists (CDI) and [facility] Coding Staff appreciate your assistance in clarifying documentation. Please respond to the clarification below the line at the bottom and electronically sign. The CDI & [facility] Coding staff will review the response and follow-up if needed. Please note: Queries are made part of the Legal Health Record. If you have any questions, please contact the author of this message via ITS. Dear Dr. Luciano The patient presented with the following: hypertension uncontrolled, blurred vision left eye, possible TIA History/Risk Factors: Hypertension, CHF, DM Clinical Indicators: Elevated blood pressure. Hypertension uncontrolled up into the 170s on admission per documentation in the H&P and discharge summary. Vital Signs: BP on 10/29: 150/82, 159/73, 170/67, T. 97.9, P. 69, R. 20 Treatment: Zestril 5 mg PO HS In your professional opinion, can you please clarify the uncontrolled hypertension? Urgency Crisis Emergency Other, please specify Unable to determine MTDD
== END 2019-10-31 14:55 | disposition home or self-care (01) | DRG 69 ==
LOC: EC 13:15 → 3SCARD 16:00 → OBSVTOIN 10-30 11:18
PROVIDERS: ADMIT Family Medicine; ATTEND Family Medicine
DX: G45.9 Transient cerebral ischemic attack, unspecified (principal); H53.8 Other visual disturbances; E11.65 Type 2 diabetes mellitus with hyperglycemia; E11.649 Type 2 diabetes mellitus with hypoglycemia without coma; E78.5 Hyperlipidemia, unspecified; F32.9 Major depressive disorder, single episode, unspecified; F43.10 Post-traumatic stress disorder, unspecified; G40.909 Epilepsy, unspecified, not intractable, without status epilepticus; G47.33 Obstructive sleep apnea (adult) (pediatric); E11.42 Type 2 diabetes mellitus with diabetic polyneuropathy; I11.0 Hypertensive heart disease with heart failure; I48.91 Unspecified atrial fibrillation; I50.9 Heart failure, unspecified; J44.9 Chronic obstructive pulmonary disease, unspecified; K21.9 Gastro-esophageal reflux disease without esophagitis; M06.9 Rheumatoid arthritis, unspecified; M19.90 Unspecified osteoarthritis, unspecified site; M79.7 Fibromyalgia; G43.909 Migraine, unspecified, not intractable, without status migrainosus; H35.30 Unspecified macular degeneration; K58.9 Irritable bowel syndrome, unspecified; M10.9 Gout, unspecified; K57.90 Diverticulosis of intestine, part unspecified, without perforation or abscess without bleeding; I10 Essential (primary) hypertension; E11.319 Type 2 diabetes mellitus with unspecified diabetic retinopathy without macular edema; F41.9 Anxiety disorder, unspecified; I83.90 Asymptomatic varicose veins of unspecified lower extremity; E66.9 Obesity, unspecified; Z68.27 Body mass index [BMI] 27.0-27.9, adult; Z79.4 Long term (current) use of insulin; Z79.899 Other long term (current) drug therapy; Z88.1 Allergy status to other antibiotic agents; Z88.5 Allergy status to narcotic agent; Z88.0 Allergy status to penicillin; Z88.2 Allergy status to sulfonamides; Z88.8 Allergy status to other drugs, medicaments and biological substances; Z98.84 Bariatric surgery status; Z96.651 Presence of right artificial knee joint; Z90.710 Acquired absence of both cervix and uterus; Z90.49 Acquired absence of other specified parts of digestive tract; Z86.73 Personal history of transient ischemic attack (TIA), and cerebral infarction without residual deficits; Z85.43 Personal history of malignant neoplasm of ovary; Z85.038 Personal history of other malignant neoplasm of large intestine; Z87.01 Personal history of pneumonia (recurrent); Z87.11 Personal history of peptic ulcer disease; Z87.440 Personal history of urinary (tract) infections; Z82.49 Family history of ischemic heart disease and other diseases of the circulatory system; Z83.3 Family history of diabetes mellitus; Z82.0 Family history of epilepsy and other diseases of the nervous system; Z83.49 Family history of other endocrine, nutritional and metabolic diseases; Z83.79 Family history of other diseases of the digestive system
CPT/HCPCS: 36415; 70450; 70551; 71046; 80048; 80053; 80061; 83036; 84443; 84484; 85025; 85610; 85652; 85730; 93005; 93306; 93880; 96360; 99285

== ENCOUNTER 2020-02-06 17:06 | Emergency (ER) | payer OTHER, MEDICARE ==
[2020-02-06 17:17] VITALS: RESP 18
[2020-02-06] MEDS ORDERED: KETOROLAC 30 MG/ML 1 ML VIAL IM STA (17:55)
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
[2020-02-06 19:54] VITALS: BP 138/78; PULSE 70; TEMP 98.2
== END 2020-02-06 19:30 | disposition home or self-care (01) ==
LOC: EC 17:06
DX: S42.141A Displaced fracture of glenoid cavity of scapula, right shoulder, initial encounter for closed fracture (principal); M25.571 Pain in right ankle and joints of right foot; M48.02 Spinal stenosis, cervical region; E11.9 Type 2 diabetes mellitus without complications; F41.9 Anxiety disorder, unspecified; F32.9 Major depressive disorder, single episode, unspecified; I11.0 Hypertensive heart disease with heart failure; I50.9 Heart failure, unspecified; G47.30 Sleep apnea, unspecified; Z79.4 Long term (current) use of insulin; Z79.899 Other long term (current) drug therapy; Z88.1 Allergy status to other antibiotic agents; Z88.5 Allergy status to narcotic agent; Z88.2 Allergy status to sulfonamides; Z88.8 Allergy status to other drugs, medicaments and biological substances; Z85.43 Personal history of malignant neoplasm of ovary; Z99.89 Dependence on other enabling machines and devices; Z86.73 Personal history of transient ischemic attack (TIA), and cerebral infarction without residual deficits; Z98.84 Bariatric surgery status; Z96.651 Presence of right artificial knee joint; V43.52XA Car driver injured in collision with other type car in traffic accident, initial encounter; Y92.410 Unspecified street and highway as the place of occurrence of the external cause
CPT/HCPCS: 99284; 96372; 73030; 73610; 72128; 72125; J1885

== ENCOUNTER → 2020-03-16 | Outpatient (CLI) | payer OTHER ==
--- NOTE | 2020-03-16 15:24 | MR ---
EXAMINATION TYPE: MR shoulder RT wo con DATE OF EXAM: 03/16/2020 1:47 PM COMPARISON: NONE HISTORY: Rt shoulder pain/injury TECHNIQUE: Multiplanar multispin echo imaging of the right shoulder was performed. FINDINGS: Rotator cuff : Chronic tendinopathy supraspinatus tendon with heterogeneity and thickening noted. Foc al intrasubstance tear at the critical zone without full-thickness tear. Remaining constituents of th e rotator cuff are unremarkable. Bursa: No bursal effusion or thickening is seen. Musculature: There is no muscular tear, contusion, or atrophy. Acromioclavicular joint : Moderate subacromial spurring and AC joint arthropathy resulting in moderat e impingement. Osseous structures : There are no fractures or regions of abnormal bone marrow signal intensity. Long biceps tendon : The biceps tendon is normally situated within the bicipital groove. No complete or partial biceps tendon tear is present. Glenohumeral Joint fluid : There is no glenohumeral joint effusion. Cartilage and Bone : No focal hyaline cartilage defects are noted. No Hill-Sachs, reverse Hill-Sachs, or bony Bankart lesions are seen. Labrum : There are no SLAP or soft tissue Bankart lesions. No paralabral cysts are seen. OTHER FINDINGS : none IMPRESSION: 1. Chronic tendinopathy supraspinatus tendon with heterogeneity and thickening noted. Focal intrasubs tance tear at the critical zone without full-thickness tear. Moderate impingement.
== END | disposition home or self-care (01) ==
LOC: RADMRIMAIN 12:52
PROVIDERS: ATTEND Orthopaedic Surgery
DX: S41.011A Laceration without foreign body of right shoulder, initial encounter (principal); M25.811 Other specified joint disorders, right shoulder; M77.9 Enthesopathy, unspecified

== ENCOUNTER 2020-10-11 13:38 | Emergency (ER) | payer MEDICARE ==
[2020-10-11 13:51] VITALS: RESP 18
[2020-10-11] MEDS ORDERED: LIDOCAINE 1% INJ 10MG/ML (20 ML MDV) SQ ONE (14:28)
--- NOTE | 2020-10-11 14:39 | ED ---
General Adult HPI - General Source: patient, RN notes reviewed Mode of arrival: ambulatory Limitations: no limitations <Robby Lynn - Last Filed: 10/11/20 15:34> <Laquita Greer - Last Filed: 10/12/20 22:44> - General Chief complaint: Vaginal Bleeding Stated complaint: Vaginal sore Time Seen by Provider: 10/11/20 14:04 - History of Present Illness Initial comments: 65-year-old female with a complicated past medical history presents to the emergency room for a chief complaint of right-sided labial swelling. Patient states it started a few weeks ago. She saw her doctor twice. She was put on Diflucan twice in a second time tried a steroid cream. It did not seem to help. Denies fevers or chills. Does state the area is painful to touch.Patient has no other complaints at this time including shortness of breath, chest pain, abdominal pain, nausea or vomiting, headache, or visual changes. (Robby Lynn) - Related Data Home Medications Medication Instructions Recorded Confirmed Insulin Glargine [Lantus] 40 unit SQ HS 05/14/19 11/13/19 Docusate [Colace] 100 mg PO BID PRN 10/06/19 11/13/19 INSULIN ASPART (NovoLOG) [NovoLOG 15 unit SQ AC-BID 10/06/19 11/13/19 (formulary)] Sertraline HCl [Zoloft] 50 mg PO HS 10/29/19 11/13/19 Previous Rx's Medication Instructions Recorded Atorvastatin [Lipitor] 40 mg PO HS #30 tab 06/09/19 lisinopriL [Zestril] 5 mg PO HS #30 tab 07/21/19 Aspirin 81 mg PO DAILY chew 10/31/19 Pantoprazole [Protonix] 40 mg PO AC-BRKFST #30 tablet. 10/31/19 Clindamycin [Cleocin] 300 mg PO Q8H 7 Days #42 cap 10/11/20 Allergies Allergy/AdvReac Type Severity Reaction Status Date / Time ampicillin Allergy Rash/Hives Verified 10/11/20 13:51 codeine Allergy Rash/Hives Verified 10/11/20 13:51 erythromycin base Allergy Rash/Hives Verified 10/11/20 13:51 lorazepam [From Ativan] Allergy Rash/Hives Verified 10/11/20 13:51 Sulfa (Sulfonamide Allergy Rash/Hives Verified 10/11/20 13:51 Antibiotics) Review of Systems ROS Other: All systems not noted in ROS Statement are negative. <Robby Lynn P - Last Filed: 10/11/20 15:34> ROS Other: All systems not noted in ROS Statement are negative. <Laquita Greer - Last Filed: 10/12/20 22:44> ROS Statement: Those systems with pertinent positive or pertinent negative responses have been documented in the HPI. Past Medical History Past Medical History: Atrial Fibrillation, Asthma, Cancer, Chest Pain / Angina, Heart Failure, COPD, Diabetes Mellitus, Fibromyalgia, GERD/Reflux, Hyperlipidemia, Hypertension, Osteoarthritis (OA), Pneumonia, Rheumatoid Arthritis (RA), Seizure Disorder, Sleep Apnea/CPAP/BIPAP Additional Past Medical History / Comment(s): mult TIA-no effects, migraines, irregular heartbeat, varicose veins, no cpap used, oxygen PRN for migraines, hx ulcer, IBS, gout, UTI's, ovarian cancer, diverticulitis History of Any Multi-Drug Resistant Organisms: None Reported Past Surgical History: Appendectomy, Bariatric Surgery, Cholecystectomy, Hernia Repair, Hysterectomy, Joint Replacement, Orthopedic Surgery Additional Past Surgical History / Comment(s): lap band/later removed, gastric sleeve, colon resection for diverticulitis, rt knee replacement, "stent in nose- from fx nose", rt thumb- tendon surgery, macular degeneration of lt eye, (R) hip replacement Past Anesthesia/Blood Transfusion Reactions: Previous Problems w/ Anesthesia Additional Past Anesthesia/Blood Transfusion Reaction / Comment(s): spray used to numb throat-had anaphylaxis(does not know name). slow to wake up Past Psychological History: Anxiety, Depression, PTSD Smoking Status: Never smoker Past Alcohol Use History: None Reported Past Drug Use History: None Reported - Past Family History Father Family Medical History: Cancer Additional Family Medical History / Comment(s): . Mother Family Medical History: Coronary Artery Disease (CAD), Dementia, Diabetes Mellitus, Thyroid Disorder Additional Family Medical History / Comment(s): diverticulitis, Sister(s) Family Medical History: Cancer <Robby Lynn P - Last Filed: 10/11/20 15:34> General Exam Limitations: no limitations General appearance: alert Head exam: Present: atraumatic Eye exam: Present: normal appearance, PERRL, EOMI ENT exam: Present: normal exam, mucous membranes moist Neck exam: Present: normal inspection, full ROM. Absent: tenderness Respiratory exam: Present: normal lung sounds bilaterally. Absent: respiratory distress Cardiovascular Exam: Present: regular rate, normal rhythm, normal heart sounds GI/Abdominal exam: Present: soft. Absent: distended External exam: Present: swelling (Patient has about 1.5 cm x 1.5 cm fluctuant area noted in the mid right labia, nothing extending into the perineum.). Absent: normal external exam, erythema Neurological exam: Present: alert <Robby Lynn - Last Filed: 10/11/20 15:34> Course Vital Signs 10/11/20 10/11/20 13:44 15:38 Temperature 98.7 F 98 F Pulse Rate 92 82 Respiratory 18 18 Rate Blood Pressure 136/79 151/82 O2 Sat by Pulse 97 96 Oximetry Procedures - Incision & Drainage Consent Obtained: verbal consent Indication: abscess Site: vulva/vagina Size (cm): 2 Anesthetic Used: lidocaine 1% Amount (mLs): 2 I&D Cleaning Method: Betadine Sterile Field Used?: Yes Scalpel Used: #11 I&D Drainage Obtained: Pus, Blood Patient Tolerated Procedure: well, no complications <Robby Lynn - Last Filed: 10/11/20 15:34> Medical Decision Making <Robby Lynn - Last Filed: 10/11/20 15:34> <Laquita Greer - Last Filed: 10/12/20 22:44> - Medical Decision Making Incision and drainage was performed. Purulent material expelled. Patient does have several ALLERGIES including Bactrim and penicillins. She was started on clindamycin which she states she has tolerated in the past. Discussed warm compresses. Discussed following up with her doctor to ensure symptoms are resolving. If she is any worsening symptoms she will return to the emergency room. I discussed this case with attending Dr. Greer who agrees with this assessment and treatment plan. (Robby Lynn) I was available for consultation in the emergency department. The history and physical exam were done by the midlevel provider. I was consulted for this patients care. I reviewed the case with the midlevel provider and based on their presentation of the patient, I agree with the assessment, medical decision making and plan of care as documented. Chart was dictated using [employer] dictation software. Attempts were made to correct any dictation errors however some typographical errors may persist. Patient was seen during a national state of emergency due to the Covid-19 pandemic. (Laquita Greer) Disposition Is patient prescribed a controlled substance at d/c from ED?: No Time of Disposition: 15:32 <Robby Lynn - Last Filed: 10/11/20 15:34> <Laquita Greer - Last Filed: 10/12/20 22:44> Clinical Impression: Abscess of labia majora Disposition: HOME SELF-CARE Condition: Good Instructions (If sedation given, give patient instructions): Abscess (ED) Additional Instructions: Take antibiotic as directed. Apply warm compresses. Follow-up with your doctor to make sure that symptoms are improving. If anything is worsening return to the emergency room. Prescriptions: Clindamycin [Cleocin] 300 mg PO Q8H 7 Days #42 cap Referrals: Kevyn Luciano DO [Primary Care Provider] - 1-2 days
[2020-10-11 15:40] VITALS: BP 151/82; PULSE 82; TEMP 98
== END 2020-10-11 15:41 | disposition home or self-care (01) ==
LOC: EC 13:38
DX: N76.4 Abscess of vulva (principal); F41.9 Anxiety disorder, unspecified; F32.9 Major depressive disorder, single episode, unspecified; E11.9 Type 2 diabetes mellitus without complications; Z79.4 Long term (current) use of insulin; Z79.899 Other long term (current) drug therapy; Z88.1 Allergy status to other antibiotic agents; Z88.2 Allergy status to sulfonamides; Z88.5 Allergy status to narcotic agent; Z88.8 Allergy status to other drugs, medicaments and biological substances; Z90.49 Acquired absence of other specified parts of digestive tract; Z90.710 Acquired absence of both cervix and uterus; Z96.651 Presence of right artificial knee joint; Z96.641 Presence of right artificial hip joint; G47.33 Obstructive sleep apnea (adult) (pediatric); Z99.89 Dependence on other enabling machines and devices; Z85.43 Personal history of malignant neoplasm of ovary
CPT/HCPCS: 99283; 56405; J2001

== ENCOUNTER 2020-12-15 07:58 | Day surgery (SDC) | payer MEDICARE ==
[2020-12-14 15:59] VITALS: BMI 25.0
--- NOTE | 2020-12-14 18:41 | HP ---
HISTORY AND PHYSICAL DATE OF SURGERY: 12/15/2020 Destiny Mejia is a 65-year-old patient seen with progressive right shoulder pain. We discussed options for treatment. She elected to proceed with arthroscopy. Consent was obtained. Medical clearance was provided by Dr. Kevyn Luciano. PAST MEDICAL HISTORY: Asthma, insulin-dependent diabetes, hypertension. PAST SURGICAL HISTORY: Cardiac catheterization, cholecystectomy, herniorrhaphy, hysterectomy, appendectomy. DAILY MEDICATIONS: Lantus insulin, simvastatin, Zoloft, aspirin. ALLERGIES: SULFA, CODEINE, ERYTHROMYCIN. SOCIAL HISTORY: She denies current tobacco use. PHYSICAL EVALUATION OF THE RIGHT SHOULDER: Flexion 100, abduction 80. External rotation is 25 with pain and weakness. Tenderness along the anterolateral acromion and rotator cuff insertion site. Impingement sign is positive at 90 degrees. Drop-arm sign is positive. Cross-body adduction sign is positive. Distal neurovascular exam is intact. RADIOGRAPHS: Right shoulder radiographs revealed acromioclavicular joint osteoarthritis. Right shoulder MRI revealed partial rotator cuff tendon tear and impingement. IMPRESSION: 1. Right shoulder impingement with partial rotator cuff tear. 2. Right shoulder acromioclavicular joint osteoarthritis. 3. Hyperlipidemia. 4. Insulin-dependent diabetes. PLAN: Right shoulder arthroscopy with subacromial decompression, Roma procedure, possible arthroscopic rotator cuff repair and debridement. MMODL / IJN: [id number] /
[~2020-12-15 07:58] MED LIST changes: -DEXAMETHASONE SOD PHOSPHATE 10 MG/ML 1 ML VIAL IV ONE; -HEPARIN SODIUM,PORCINE 5,000 UNIT/ML 1 ML VIAL SQ ONE; +HYDROmorphone 0.5 MG/0.5 ML SYRINGE IVP PRN; +LACTATED RINGERS 1,000 ML IV SCH; -LIDOCAINE 1% 20 ML VIAL (10MG/ML) FOR IV START INTRADERMA PRN; -MIDAZOLAM 2 MG/2 ML VIAL IV PRN; +ONDANSETRON 4 MG/2 ML VIAL IVP ONE; -SCOPOLAMINE 1.5MG/72HR PATCH TRANSDERM ONE; -fentaNYL (PF) 50 MCG/ML 2 ML AMP IV PRN; +fentaNYL (PF) 50 MCG/ML 2 ML AMP IVP PRN
[2020-12-15] MEDS ORDERED: INSULIN ASPART (NovoLOG) 100 UNIT/ML VIAL SQ ONE ×2 (08:45→11:51)
[2020-12-15] MEDS ORDERED: DEXAMETHASONE SOD PHOSPHATE 4 MG/ML 1 ML VIAL IVP ONE (08:45)
[2020-12-15 08:59] LABS: Glucose,Whole Blood 271 mg/dL (75-99)
[2020-12-15] MEDS ORDERED: MIDAZOLAM 2 MG/2 ML VIAL IVP ONE (09:09)
[2020-12-15] MEDS ORDERED: fentaNYL (PF) 50 MCG/ML 2 ML AMP IVP ONE (09:09)
[2020-12-15] MEDS ORDERED: PROPOFOL 10 MG/ML 20 ML VIAL IV ONE (10:01)
[2020-12-15] MEDS ORDERED: ROPIVACAINE 5 MG/ML 30 ML VIAL ONE (10:01)
[2020-12-15] MEDS ORDERED: ePHEDrine SULFATE/0.9% NACL/PF 50 MG/5 ML SYRINGE IV ONE (10:01)
[2020-12-15] MEDS ORDERED: MIDAZOLAM 2 MG/2 ML VIAL ONE (10:01)
[2020-12-15] MEDS ORDERED: SUCCINYLCHOLINE CHLORIDE 100 MG/5 ML SYR IV ONE (10:01)
[2020-12-15] MEDS ORDERED: LIDOCAINE 1% INJ 10MG/ML (20 ML MDV) ONE (10:01)
[2020-12-15] MEDS ORDERED: fentaNYL (PF) 50 MCG/ML 2 ML AMP ONE (10:01)
[2020-12-15] MEDS ORDERED: PHENYLEPHRINE-0.9% NACL SYG 1,000 MCG/10 ML SYRINGE ONE (10:01)
--- NOTE | 2020-12-15 11:19 | P.OP ---
Date of Procedure: 12/15/20 Preoperative Diagnosis: Right shoulder impingement Postoperative Diagnosis: 1. Right shoulder rotator cuff tear 2. Right shoulder impingement 3. Right shoulder acromioclavicular joint osteoarthritis 4. Right shoulder partial long head biceps tendon tear Procedure(s) Performed: 1. Right shoulder arthroscopic rotator cuff repair 2. Right shoulder arthroscopic subacromial decompression 3. Right shoulder arthroscopic Roma procedure 4. Right shoulder arthroscopic biceps tenotomy Implants: 15.5 Arthrex swivel lock anchor Anesthesia: GETA, regional (Interscalene block) Surgeon: Corbin Lambert Special Collections Librarian #1: Osmin Schneider Estimated Blood Loss (ml): 7 Pathology: none sent Condition: stable Disposition: PACU Indications for Procedure: 65-year-old patient seen with progressive right shoulder pain. After treatment options were discussed, she elected to proceed with arthroscopy. Operative Findings: see description of procedure Description of Procedure: Patient underwent an interscalene block by department of anesthesia. The patient was then taken to the operative suite. The patient underwent a general anesthetic by the department of anesthesia. The patient was placed into a lateral position and secured. There was appropriate padding of the bony prominence. Right shoulder was then prepped and draped in normal sterile orthopedic fashion. We placed the extremity in 10 pounds of longitudinal traction. A posterior incision was now made for a posterior working portal site. The trocar and cannula were inserted into the glenohumeral joint. Arthroscopy was initiated. Spinal needle was now inserted anteriorly, to ascertain the anterior working portal site. An incision was now made in that area, a trocar was inserted followed by a probe. There was some superficial tearing and hyperemia of the long head biceps tendon. There were grade 1 chondromalacia changes of glenoid anteriorly. The labrum was stable. I performed an arthroscopic biceps tenotomy. I again probed the labrum and it was found to be stable. Instruments now removed from glenohumeral joint. Utilizing the posterior working portal site, the trocar and cannula were inserted into the subacromial space. Arthroscopy initiated. I made an incision 2 fingerbreadths lateral to the acromion. I introduced my trocar followed by my ArthroCare ablator. I now began ablating thick subacromial bursal tissue, which exposed the undersurface of the anterior acromion. There was diminished subacromial space. There was a very prominent anterior acromion. A motorized bur was introduced and a subacromial decompression was performed. I also excised some osteophytes off the inferior aspect of the distal clavicle. The AC joint was visualized and noted to be fairly arthritic. The motorized bur was introduced in the anterior portal site and a Roma procedure was performed without difficulty, decompressing the AC joint nicely. I turned my attention to the rotator cuff. There was a 1.5 cm rotator cuff tear. I debrided the margins getting down to stable tendon tissue. I abraded the footprint with a motorized bur. I passed 2 everted mattress sutures through good bites of rotator cuff tendon. I now punched a hole in the footprint for insertion of an anchor. All 4 limbs of suture were passed through the eyelet of a 5.5 Arthrex swivel lock anchor. I placed the eyelets the pre-punch hole. Osmin BLACK placed the eyelet into the pre-punch hole. I held the anchor in position while he tensioned all 4 sutures and deployed the anchor with good fixation noted. All residual suture limbs were now clipped. We had good compression of the tendon along the entire footprint. Instruments now removed from the portal sites. All portal sites were approximated with nylon suture. Sterile dressings were applied followed by a shoulder sling. Osmin BLACK assisted in this complex case. The patient was awakened, transferred to a bed, and taken to recovery in stable condition.
[2020-12-15 11:30] VITALS: TEMP 97
[2020-12-15 11:42] LABS: Glucose,Whole Blood 280 mg/dL (75-99)
[2020-12-15 12:53] VITALS: BP 129/77; PULSE 96; RESP 16
[2020-12-15 13:07] LABS: Glucose,Whole Blood 297 mg/dL (75-99)
--- NOTE | 2020-12-15 14:07 | P.ANPRN ---
Procedure Note - Anesthesia - Nerve Block Performed Right Interscalene Single Time Out Performed: Yes ([id number]) Date of Procedure: 12/15/20 Procedure Start Time: : Procedure Stop Time: :14 Location of Patient: PreOp Indication: Acute Post-Operative Pain, Requested by Surgeon Specifically requested for management of pain by DrMelva: Corbin Lambert Sedation Type: Sedate with meaningful contact maintained Preparation: Sterile Prep Position: Supine Catheter: None Needle Types: Pajunk Needle Gauge: 21 Ultrasound used to visualize needle placement: Yes Ultrasound used to observe medication spread: Yes Injectate: 0.5% Ropivacaine (see comment for volume) (25cc) Blood Aspirated: No Pain Paresthesia on Injection Noted: No Resistance on Injection: Normal Image Stored and Saved: Yes Events: Uneventful and Well Tolerated
== END 2020-12-15 13:42 | disposition home or self-care (01) ==
LOC: OR 07:58
PROVIDERS: ATTEND Orthopaedic Surgery
DX: M75.101 Unspecified rotator cuff tear or rupture of right shoulder, not specified as traumatic (principal); M25.811 Other specified joint disorders, right shoulder; M19.011 Primary osteoarthritis, right shoulder; S46.111A Strain of muscle, fascia and tendon of long head of biceps, right arm, initial encounter; M94.211 Chondromalacia, right shoulder; M25.711 Osteophyte, right shoulder; X58.XXXA Exposure to other specified factors, initial encounter; E78.5 Hyperlipidemia, unspecified; E11.9 Type 2 diabetes mellitus without complications; I48.91 Unspecified atrial fibrillation; I10 Essential (primary) hypertension; E78.49 Other hyperlipidemia; J44.9 Chronic obstructive pulmonary disease, unspecified; G47.33 Obstructive sleep apnea (adult) (pediatric); Z86.73 Personal history of transient ischemic attack (TIA), and cerebral infarction without residual deficits; G43.909 Migraine, unspecified, not intractable, without status migrainosus; M79.7 Fibromyalgia; M06.9 Rheumatoid arthritis, unspecified; Z79.82 Long term (current) use of aspirin; Z79.4 Long term (current) use of insulin; Z79.899 Other long term (current) drug therapy; Z88.1 Allergy status to other antibiotic agents; Z88.5 Allergy status to narcotic agent; Z88.2 Allergy status to sulfonamides
CPT/HCPCS: 64415; 76942; 29826; 29827; 29824; C1713; J2250; J1100; J2405; J0690; J2001; J3010; J2795; J2370; J0330; J2704

== ENCOUNTER 2021-02-12 18:18 | Observation (INO) | payer MEDICARE ==
--- NOTE | 2021-02-12 19:11 | ED ---
General Adult HPI - General Chief complaint: Chest Pain Stated complaint: chest pain/sob Time Seen by Provider: 02/12/21 19:09 Source: patient Mode of arrival: wheelchair Limitations: no limitations - History of Present Illness Initial comments: Patient presents to the ED complaining of having left-sided chest pain radiating to her left arm since about 9 AM this morning. Patient admits to having associated dizziness, diaphoresis and dyspnea. Patient denies trauma or injury, fever or chills, headache, focal numbness/weakness/neuro deficit, neck/jaw pain, back pain, pleuritic pain, cough or cold symptoms, palpitations, syncope, abdominal pain, nausea/vomiting/diarrhea, dysuria or urinary symptoms, decreased urine output, leg or calf swelling or pain, or any other symptoms or complaints. Patient states that she is fully vaccinated against Covid. - Related Data Home Medications Medication Instructions Recorded Confirmed Insulin Glargine [Lantus] 30 unit SQ HS 05/14/19 12/14/20 INSULIN ASPART (NovoLOG) [NovoLOG 15 unit SQ AC-TID 10/06/19 12/14/20 (formulary)] Albuterol Inhaler [Ventolin Hfa 2 puff INHALATION RT-QID PRN 12/14/20 12/14/20 Inhaler] Diabetic Med(Unknown Name) 1 tab PO HS 12/14/20 Previous Rx's Medication Instructions Recorded Atorvastatin [Lipitor] 40 mg PO HS #30 tab 06/09/19 lisinopriL [Zestril] 5 mg PO HS #30 tab 07/21/19 HYDROcodone/APAP 5-325MG [[place] 1 tab PO Q6HR PRN 3 Days #21 tab 12/15/20 5-325] Allergies Allergy/AdvReac Type Severity Reaction Status Date / Time ampicillin Allergy Rash/Hives Verified 02/12/21 18:26 codeine Allergy Rash/Hives Verified 02/12/21 18:26 erythromycin base Allergy Rash/Hives Verified 02/12/21 18:26 lorazepam [From Ativan] Allergy Rash/Hives Verified 02/12/21 18:26 Sulfa (Sulfonamide Allergy Rash/Hives Verified 02/12/21 18:26 Antibiotics) Review of Systems ROS Statement: Those systems with pertinent positive or pertinent negative responses have been documented in the HPI. ROS Other: All systems not noted in ROS Statement are negative. Past Medical History Past Medical History: Atrial Fibrillation, Asthma, Cancer, Chest Pain / Angina, Heart Failure, COPD, Diabetes Mellitus, Fibromyalgia, GERD/Reflux, Hyperlipidemia, Hypertension, Osteoarthritis (OA), Pneumonia, Rheumatoid Arthritis (RA), Seizure Disorder, Sleep Apnea/CPAP/BIPAP Additional Past Medical History / Comment(s): mult TIA-no effects, migraines, irregular heartbeat, varicose veins, no cpap used, oxygen PRN for migraines, hx ulcer, IBS, gout, UTI's, ovarian cancer, diverticulitis History of Any Multi-Drug Resistant Organisms: None Reported Past Surgical History: Appendectomy, Bariatric Surgery, Cholecystectomy, Hernia Repair, Hysterectomy, Joint Replacement, Orthopedic Surgery Additional Past Surgical History / Comment(s): rt hip replacement, rt shoulder rotator Past Anesthesia/Blood Transfusion Reactions: Previous Problems w/ Anesthesia Additional Past Anesthesia/Blood Transfusion Reaction / Comment(s): spray used to numb throat-had anaphylaxis(does not know name). slow to wake up Past Psychological History: Anxiety, Depression, PTSD Smoking Status: Never smoker Past Alcohol Use History: None Reported Past Drug Use History: None Reported - Past Family History Father Family Medical History: Cancer Additional Family Medical History / Comment(s): . Mother Family Medical History: Coronary Artery Disease (CAD), Dementia, Diabetes Mellitus, Thyroid Disorder Additional Family Medical History / Comment(s): diverticulitis, Sister(s) Family Medical History: Cancer General Exam Limitations: no limitations General appearance: alert, in no apparent distress Head exam: Present: atraumatic, normocephalic Eye exam: Present: normal appearance, EOMI ENT exam: Present: mucous membranes moist Neck exam: Present: other (Trachea is in midline) Respiratory exam: Present: normal lung sounds bilaterally. Absent: respiratory distress, wheezes, rales, rhonchi, stridor Cardiovascular Exam: Present: regular rate, normal rhythm, normal heart sounds, other (Normal radial pulses bilaterally) GI/Abdominal exam: Present: soft. Absent: distended, tenderness, guarding Extremities exam: Present: other (Negative Homans sign bilaterally). Absent: tenderness, pedal edema, calf tenderness Neurological exam: Present: alert, oriented X3. Absent: motor sensory deficit Psychiatric exam: Present: normal affect, normal mood Skin exam: Present: warm, dry, intact, normal color Course Vital Signs 02/12/21 02/12/21 02/12/21 18:22 18:54 19:01 Temperature 98.1 F Pulse Rate 75 69 Pulse Rate [ 69 Acute Care Physician ] Respiratory 18 18 Rate Blood Pressure 177/83 173/82 O2 Sat by Pulse 97 98 Oximetry - Reevaluation(s) Reevaluation #1: 02/12/21 19:57 Case, H&P, test results and ED management were discussed with Dr. Velasquez. He accepts hospital admission. He agrees with cardiology consultation. He has no further recommendations at this time. 02/12/21 20:04 Patient states that her chest pain has improved while in the ED. Patient denies development of any new pain or symptoms while in the ED. Patient remains alert and breathing comfortably with a normal room air oxygen saturation. Patient is aware of her test results, and she agrees with hospital admission at this time. EKG Findings - EKG Comments: EKG Findings:: Normal sinus rhythm, ventricular rate of 68 bpm, no ectopy, normal VA and QRS intervals, normal QT interval, normal axis, nonspecific T-wave abnormality Medical Decision Making - Medical Decision Making Patient's EKG is nonspecific. Patient's troponin and d-dimer are negative. Patient's chest x-ray is fairly unremarkable. Given the patient's cardiac risk factors and history, will admit the patient to the hospital for serial troponins, cardiac monitoring and further evaluation. Cardiology consultation order has been placed. Dr. Velasquez has accepted hospital admission. - Lab Data Result diagrams: 02/12/21 19:20 02/12/21 19:20 Lab Results 02/12/21 02/12/21 02/12/21 Range/Units 19:20 19:20 19:20 WBC 10.1 (3.8-10.6) k/uL RBC 4.76 (3.80-5.40) m/uL Hgb 14.4 (11.4-16.0) gm/dL Hct 42.9 (34.0-46.0) % MCV 90.2 (80.0-100.0) fL MCH 30.3 (25.0-35.0) pg MCHC 33.6 (31.0-37.0) g/dL RDW 12.5 (11.5-15.5) % Plt Count 292 (150-450) k/uL MPV 7.9 Neutrophils % 72 % Lymphocytes % 19 % Monocytes % 6 % Eosinophils % 1 % Basophils % 1 % Neutrophils # 7.3 (1.3-7.7) k/uL Lymphocytes # 1.9 (1.0-4.8) k/uL Monocytes # 0.7 (0-1.0) k/uL Eosinophils # 0.1 (0-0.7) k/uL Basophils # 0.1 (0-0.2) k/uL PT 10.1 (9.0-12.0) sec INR 0.9 (<1.2) APTT 22.7 (22.0-30.0) sec D-Dimer 0.55 (<0.60) mg/L FEU Sodium 141 (137-145) mmol/L Potassium 3.8 (3.5-5.1) mmol/L Chloride 107 (98-107) mmol/L Carbon Dioxide 25 (22-30) mmol/L Anion Gap 9 mmol/L BUN 18 H (7-17) mg/dL Creatinine 0.92 (0.52-1.04) mg/dL Est GFR (CKD-EPI)AfAm 76 (>60 ml/min/1.73 sqM) Est GFR (CKD-EPI)NonAf 66 (>60 ml/min/1.73 sqM) Glucose 116 H (74-99) mg/dL Calcium 10.1 (8.4-10.2) mg/dL Magnesium 2.0 (1.6-2.3) mg/dL Total Bilirubin 0.7 (0.2-1.3) mg/dL AST 26 (14-36) U/L ALT 13 (4-34) U/L Alkaline Phosphatase 191 H (38-126) U/L Troponin I (0.000-0.034) ng/mL Total Protein 6.8 (6.3-8.2) g/dL Albumin 3.9 (3.5-5.0) g/dL 02/12/21 Range/Units 19:20 WBC (3.8-10.6) k/uL RBC (3.80-5.40) m/uL Hgb (11.4-16.0) gm/dL Hct (34.0-46.0) % MCV (80.0-100.0) fL MCH (25.0-35.0) pg MCHC (31.0-37.0) g/dL RDW (11.5-15.5) % Plt Count (150-450) k/uL MPV Neutrophils % % Lymphocytes % % Monocytes % % Eosinophils % % Basophils % % Neutrophils # (1.3-7.7) k/uL Lymphocytes # (1.0-4.8) k/uL Monocytes # (0-1.0) k/uL Eosinophils # (0-0.7) k/uL Basophils # (0-0.2) k/uL PT (9.0-12.0) sec INR (<1.2) APTT (22.0-30.0) sec D-Dimer (<0.60) mg/L FEU Sodium (137-145) mmol/L Potassium (3.5-5.1) mmol/L Chloride (98-107) mmol/L Carbon Dioxide (22-30) mmol/L Anion Gap mmol/L BUN (7-17) mg/dL Creatinine (0.52-1.04) mg/dL Est GFR (CKD-EPI)AfAm (>60 ml/min/1.73 sqM) Est GFR (CKD-EPI)NonAf (>60 ml/min/1.73 sqM) Glucose (74-99) mg/dL Calcium (8.4-10.2) mg/dL Magnesium (1.6-2.3) mg/dL Total Bilirubin (0.2-1.3) mg/dL AST (14-36) U/L ALT (4-34) U/L Alkaline Phosphatase (38-126) U/L Troponin I <0.012 (0.000-0.034) ng/mL Total Protein (6.3-8.2) g/dL Albumin (3.5-5.0) g/dL - Radiology Data Radiology results: report reviewed (Chest x-ray: Cardiomegaly with bibasilar opacities suggestive of atelectasis) Disposition Clinical Impression: Chest pain Disposition: ADMITTED IP TO THIS [facility] Condition: Stable Is patient prescribed a controlled substance at d/c from ED?: No Referrals: Kevyn Luciano DO [Primary Care Provider] - 1-2 days Time of Disposition: 19:57
[2021-02-12] MEDS ORDERED: NITROGLYCERIN SL TABS 0.4 MG TAB SUBLINGUAL STA (19:15)
[2021-02-12] MEDS ORDERED: ASPIRIN 81 MG PO STA (19:15)
[2021-02-12 19:33] LABS: Basophils # (A) 0.1 k/uL (0-0.2); Basophils % (A) 1 %; Eosinophils # (A) 0.1 k/uL (0-0.7); Eosinophils % (A) 1 %; HCT 42.9 % (34.0-46.0); HGB 14.4 gm/dL (11.4-16.0); Lymphocytes # (A) 1.9 k/uL (1.0-4.8); Lymphocytes % (A) 19 %; MCH 30.3 pg (25.0-35.0); MCHC 33.6 g/dL (31.0-37.0); MCV 90.2 fL (80.0-100.0); Mean Platelet Volume 7.9; Monocytes # (A) 0.7 k/uL (0-1.0); Monocytes % (A) 6 %; Neutrophils # (A) 7.3 k/uL (1.3-7.7); Neutrophils % (A) 72 %; Platelet Count 292 k/uL (150-450); RBC 4.76 m/uL (3.80-5.40); RDW 12.5 % (11.5-15.5); WBC 10.1 k/uL (3.8-10.6)
[2021-02-12 19:37] LABS: Albumin 3.9 g/dL (3.5-5.0); Calcium 10.1 mg/dL (8.4-10.2); Potassium 3.8 mmol/L (3.5-5.1); Total Bilirubin 0.7 mg/dL (0.2-1.3); Total Protein 6.8 g/dL (6.3-8.2)
[2021-02-12 19:46] LABS: D-Dimer 0.55 mg/L FEU (<0.60); INR 0.9 (<1.2); Partial Thromboplastin Time 22.7 sec (22.0-30.0); Prothrombin Time 10.1 sec (9.0-12.0)
--- NOTE | 2021-02-12 19:53 | XR ---
EXAMINATION TYPE: XR chest 2V DATE OF EXAM: 02/12/2021 COMPARISON: NONE HISTORY: Chest pain TECHNIQUE: Frontal and lateral views of the chest are obtained. FINDINGS: There is mild bibasilar hazy opacities. No pleural effusion, or pneumothorax seen. The ca rdiac silhouette size is enlarged. The osseous structures are intact. IMPRESSION: Cardiomegaly with bibasilar opacities suggestive of atelectasis.
[2021-02-12] MEDS ORDERED: MORPHINE SULFATE 4 MG/ML SYRINGE IVP STA (20:12)
[2021-02-12] MEDS: lisinopriL 5 MG TAB PO SCH (20:18)
[2021-02-12] MEDS ORDERED: ATORVASTATIN 40 MG TAB PO SCH (21:00)
[2021-02-13 07:23] LABS: Glucose,Whole Blood 160 mg/dL (75-99)
[2021-02-13 09:57] LABS: African American GFR (CKD) 68.5 (60.0-200.0); Albumin 3.5 g/dL (3.80-4.90); Albumin/Globulin Ratio 1.75 (1.60-3.17); Anion Gap 5.3 mmol/L (4.00-12.00); Carbon Dioxide 28.7 mmol/L (21.6-31.8); Non-African American GFR(CKD) 59.1 (60.0-200.0); Potassium 3.7 mmol/L (3.5-5.5); Total Bilirubin 0.6 mg/dL (0.3-1.2); Total Protein 5.5 g/dL (6.2-8.2)
[2021-02-13 10:45] LABS: Basophils # (A) 0.04 X 10*3/uL (0.00-0.10); Basophils % (A) 0.5 %; Eosinophils # (A) 0.23 X 10*3/uL (0.04-0.35); HCT 39.4 % (37.2-46.3); HGB 12.1 g/dL (12.0-15.0); Lymphocytes % (A) 30.3 %; MCH 29.1 pg (27.0-32.0); MCHC 30.7 g/dL (32.0-37.0); MCV 94.7 fL (80.0-97.0); Mean Platelet Volume 11.1 fL (9.5-12.2); Monocytes # (A) 0.66 X 10*3/uL (0.20-1.00); Monocytes % (A) 8.7 %; Neutrophils # (A) 4.34 X 10*3/uL (1.80-7.70); Neutrophils % (A) 57.2 %; Platelet Count 264 X 10*3/uL (140-440); RBC 4.16 X 10*6/uL (4.10-5.20); RDW 12.3 % (11.5-14.5); WBC 7.59 X 10*3/uL (4.50-10.00)
[2021-02-13 12:00] LABS: Glucose,Whole Blood 171 mg/dL (75-99)
--- NOTE | 2021-02-13 12:23 | CONS ---
CONSULTATION CHIEF COMPLAINT: Chest pain. HISTORY OF PRESENT ILLNESS: Destiny is a 65-year-old lady with history of hypertension, dyslipidemia, and insulin- requiring diabetes, who presents to hospital complaining of chest pain. Her chest discomfort is sharp, precordial, mild intensity, unrelated to exertion and unassociated with diaphoresis. There is no clear-cut radiation to neck, arm or back. There were no clear-cut relieving or exacerbating factors. Her pain started yesterday. She came to the emergency room, had an EKG that showed sinus rhythm with nonspecific ST-T wave changes. Had 3 sets of troponins that are negative. Coronavirus test is negative. Potassium is 3.8. Creatinine is 0.9, hemoglobin is 14.4. PAST MEDICAL HISTORY: Significant for diabetes hypertension dyslipidemia. MEDICATIONS: Include Lipitor 20 daily, insulin, and Zestril 5 daily. ALLERGIES: SHE HAS MULTIPLE DRUG ALLERGIES INCLUDING AMPICILLIN, CODEINE, ERYTHROMYCIN, LIDOCAINE, PENICILLIN AND INDOCID AND SULFA. FAMILY HISTORY: Negative for premature coronary artery disease. SOCIAL HISTORY: She denies smoking, ETOH abuse or drug abuse. REVIEW OF SYMPTOMS: HEENT is unremarkable. Cardiac as described above. Respiratory negative. GI negative. GENITOURINARY: Negative. DERM negative. ALLERGY: None. SKIN negative. MUSCULOSKELETAL: Exam significant for arthritis. PSYCHOSOCIAL negative. ENDOCRINE negative. CONSTITUTIONAL: Negative. ONCOLOGICAL negative. X RAY DEVELOPING MACHINE OPERATOR: Negative. EXAM: She is comfortable at rest. Vital signs are stable. There is no jugular venous distention. There is no carotid bruit. Chest exam reveals good air entry bilaterally. Heart exam reveals first and second heart sounds. No gallop. No murmur. No rub. Abdomen is soft, nontender. Examination of extremities did not reveal any edema. Peripheral pulses are felt. X RAY DEVELOPING MACHINE OPERATOR exam did not reveal focal neurological deficits. Three sets of cardiac enzymes are negative. ASSESSMENT: Precordial chest pain. PLAN: Patient's chest discomfort is sharp and atypical. I am going to set her up for a dobutamine echo tomorrow. If this is negative, she will go home. If this is abnormal, she will need further workup. MMODL / IJN: [id number] /
[2021-02-13] MEDS ORDERED: INSULIN ASPART (NovoLOG) 100 UNIT/ML VIAL SQ SCH (12:30)
[2021-02-13] MEDS: INSULIN ASPART (NovoLOG) 100 UNIT/ML VIAL SQ SCH ×3 (12:57→20:34)
[2021-02-13] MEDS ORDERED: PANTOPRAZOLE 40 MG/10 ML VIAL IVP SCH (13:00)
[2021-02-13] MEDS: ACETAMINOPHEN TAB 325 MG TAB PO PRN ×2 (13:04→19:13)
[2021-02-13 17:05] LABS: Glucose,Whole Blood 139 mg/dL (75-99)
--- NOTE | 2021-02-13 17:18 | P.HPIM ---
History of Present Illness Patient came in with compensative pressure-like chest pain moderate to severe associated with the dizziness diaphoresis shortness of breath patient states her chest pain is probably because well. Patient denied any syncope denied any palpitations. Patient pain started yesterday morning constant throughout the day. Patient has history of coronary disease with stents in the past patient denied any cough with sputum production. Patient just pain is nonexertional not associated with food. Patient's EKG showed 3 sets of troponins are negative Covid 19 was negative. Review of Systems REVIEW OF SYSTEMS: CONSTITUTIONAL: No fever, no malaise, no fatigue. HEENT: No recent visual problems or hearing problems. Denied any sore throat. CARDIOVASCULAR: No orthopnea, PND, no palpitations, no syncope. PULMONARY: No shortness of breath, no cough, no hemoptysis. GASTROINTESTINAL: No diarrhea, no nausea, no vomiting, no abdominal pain. NEUROLOGICAL: No headaches, no weakness, no numbness. HEMATOLOGICAL: Denies any bleeding or petechiae. GENITOURINARY: Denies any burning micturition, frequency, or urgency. MUSCULOSKELETAL/RHEUMATOLOGICAL: Denies any joint pain, swelling, or any muscle pain. ENDOCRINE: Denies any polyuria or polydipsia. The rest of the 14-point review of systems is negative. Past Medical History Past Medical History: Atrial Fibrillation, Asthma, Cancer, Chest Pain / Angina, Heart Failure, COPD, Diabetes Mellitus, Fibromyalgia, GERD/Reflux, Hyperlipidemia, Hypertension, Osteoarthritis (OA), Pneumonia, Rheumatoid Arthritis (RA), Seizure Disorder, Sleep Apnea/CPAP/BIPAP Additional Past Medical History / Comment(s): mult TIA-no effects, migraines, irregular heartbeat, varicose veins, no cpap used, oxygen PRN for migraines, hx ulcer, IBS, gout, UTI's, ovarian cancer, diverticulitis History of Any Multi-Drug Resistant Organisms: None Reported Past Surgical History: Appendectomy, Bariatric Surgery, Cholecystectomy, Hernia Repair, Hysterectomy, Joint Replacement, Orthopedic Surgery Additional Past Surgical History / Comment(s): rt hip replacement, rt shoulder rotator Past Anesthesia/Blood Transfusion Reactions: Previous Problems w/ Anesthesia Additional Past Anesthesia/Blood Transfusion Reaction / Comment(s): spray used to numb throat-had anaphylaxis(does not know name). slow to wake up Past Psychological History: Anxiety, Depression, PTSD Additional Psychological History / Comment(s): . Smoking Status: Never smoker Past Alcohol Use History: None Reported Past Drug Use History: None Reported - Past Family History Father Family Medical History: Cancer Additional Family Medical History / Comment(s): . Mother Family Medical History: Coronary Artery Disease (CAD), Dementia, Diabetes Mellitus, Thyroid Disorder Additional Family Medical History / Comment(s): diverticulitis, Sister(s) Family Medical History: Cancer Medications and Allergies Home Medications Medication Instructions Recorded Confirmed Type Insulin Glargine [Lantus] 30 unit SQ HS 05/14/19 02/12/21 History lisinopriL [Zestril] 5 mg PO HS #30 tab 07/21/19 02/12/21 Rx INSULIN ASPART (NovoLOG) [NovoLOG 15 unit SQ AC-TID 10/06/19 02/12/21 History (formulary)] Atorvastatin [Lipitor] 20 mg PO HS 02/12/21 02/12/21 History Cranberry Fruit Concentrate [Azo 250 mg PO HS 02/12/21 02/12/21 History Cranberry] Allergies Allergy/AdvReac Type Severity Reaction Status Date / Time ampicillin Allergy Rash/Hives Verified 02/12/21 20:23 codeine Allergy Rash/Hives Verified 02/12/21 20:23 erythromycin base Allergy Rash/Hives Verified 02/12/21 20:23 indomethacin Allergy Per [facility] Verified 02/12/21 20:23 lidocaine Allergy Per [facility] Verified 02/12/21 20:23 lorazepam [From Ativan] Allergy Rash/Hives Verified 02/12/21 20:23 Penicillins Allergy Rash/Hives Verified 02/12/21 20:23 Sulfa (Sulfonamide Allergy Rash/Hives Verified 02/12/21 20:23 Antibiotics) Physical Exam Vitals: Vital Signs Temp Pulse Pulse Resp BP BP Pulse Ox 02/13/21 14:00 16 02/13/21 13:37 98.5 F 58 L 16 120/71 95 02/13/21 08:00 16 02/13/21 07:00 98.5 F 57 L 16 115/72 97 02/13/21 02:00 98.2 F 59 L 16 110/71 96 02/12/21 21:42 98.2 F 60 18 163/78 98 02/12/21 20:09 70 18 179/95 96 02/12/21 19:01 69 18 173/82 98 02/12/21 18:54 69 02/12/21 18:22 98.1 F 75 18 177/83 97 Intake and Output 02/13/21 02/13/21 02/13/21 06:59 14:59 22:59 Intake Total 200 Balance 200 Intake: Oral 200 Other: Voiding Method Toilet # Voids 2 1 PHYSICAL EXAMINATION: GENERAL: The patient is alert and oriented x3, not in any acute distress. Well developed, well nourished. HEENT: Pupils are round and equally reacting to light. EOMI. No scleral icterus. No conjunctival pallor. Normocephalic, atraumatic. No pharyngeal erythema. No thyromegaly. CARDIOVASCULAR: S1 and S2 present. No murmurs, rubs, or gallops. PULMONARY: Chest is clear to auscultation, no wheezing or crackles. ABDOMEN: Soft, nontender, nondistended, normoactive bowel sounds. No palpable organomegaly. MUSCULOSKELETAL: No joint swelling or deformity. EXTREMITIES: No cyanosis, clubbing, or pedal edema. NEUROLOGICAL: Gross neurological examination did not reveal any focal deficits. SKIN: No rashes. Results CBC & Chem 7: 02/13/21 05:53 02/13/21 05:53 Labs: Abnormal Lab Results - Last 24 Hours (Table) 02/12/21 02/13/21 02/13/21 Range/Units 19:20 05:53 05:53 MCHC 30.7 L (32.0-37.0) g/dL BUN 18 H (7-17) mg/dL Est GFR (CKD-EPI)NonAf 59.1 L (60.0-200.0) BUN/Creatinine Ratio 21.00 H (12.00-20.00) Ratio Glucose 116 H 205 H (74-99) mg/dL POC Glucose (mg/dL) (75-99) mg/dL Alkaline Phosphatase 191 H 222 H (38-126) U/L Total Protein 5.5 L (6.2-8.2) g/dL Albumin 3.50 L (3.80-4.90) g/dL 02/13/21 02/13/21 02/13/21 Range/Units 07:16 11:58 17:00 MCHC (32.0-37.0) g/dL BUN (7-17) mg/dL Est GFR (CKD-EPI)NonAf (60.0-200.0) BUN/Creatinine Ratio (12.00-20.00) Ratio Glucose (74-99) mg/dL POC Glucose (mg/dL) 160 H 171 H 139 H (75-99) mg/dL Alkaline Phosphatase (38-126) U/L Total Protein (6.2-8.2) g/dL Albumin (3.80-4.90) g/dL Thrombosis Risk Factor Assmnt - Choose All That Apply Any of the Below Risk Factors Present?: Yes Each Factor Represents 1 point: Obesity (BMI >25) Other Risk Factors: Yes Each Risk Factor Represents 2 Points: Age 61-74 years Thrombosis Risk Factor Assessment Total Risk Factor Score: 3 Thrombosis Risk Factor Assessment Level: Moderate Risk Assessment and Plan Plan: -Chest pain ruled out acute coronary syndromes: Patient will undergo stress test tomorrow. D-dimer was negative. -Hypertension -Hyperlipidemia -Coronary artery disease -Depression For above-mentioned chronic medical problems patient will be resumed on appropriate medications
[2021-02-13] MEDS: lisinopriL 5 MG TAB PO SCH (19:13)
[2021-02-13 20:15] LABS: Glucose,Whole Blood 209 mg/dL (75-99)
[2021-02-13] MEDS ORDERED: INSULIN DETEMIR (LEVEMIR) 100 UNIT/ML SYR SQ SCH (21:00)
[2021-02-13] MEDS ORDERED: ATORVASTATIN 20 MG TAB PO SCH (21:00)
[2021-02-14] MEDS ORDERED: DOBUTamine DRIP for NUC MED 500 MG in DEXTROSE/WATER 1 250ML.BAG IV PRN (06:00)
[2021-02-14 06:46] LABS: Glucose,Whole Blood 109 mg/dL (75-99)
[2021-02-14 07:00] VITALS: TEMP 98.7
[2021-02-14] MEDS: INSULIN ASPART (NovoLOG) 100 UNIT/ML VIAL SQ SCH ×2 (07:58→13:19)
[2021-02-14] MEDS ORDERED: PANTOPRAZOLE 40 MG TABLET PO SCH (09:00)
[2021-02-14] MEDS ORDERED: lisinopriL 10 MG TAB PO SCH (09:00)
--- NOTE | 2021-02-14 11:25 | P.PN ---
Subjective This is a 65-year-old female with history of hypertension, dyslipidemia, type 2 diabetes. She presents hospital complaining of chest pain. EKG showed sinus rhythm with nonspecific STT wave changes. Troponin negative 3. Dobutamine stress echo was ordered for today. Patient seen and examined at bedside, no acute distress. Blood pressure 183/77, heart rate 62, afebrile, maintaining oxygen saturations 97% on room air. Telemetry reviewed patient in sinus mechanism heart rate in the 50s. Patient was currently being maintained on atorvastatin 20 mg nightly, lisinopril 5 mg nightly, Protonix 40 mg daily. GENERAL: Well-appearing, well-nourished and in no acute distress. NECK: Supple without JVD or thyromegaly. LUNGS: Breath sounds clear to auscultation bilaterally. Respiration equal and unlabored. No wheezes, rales or rhonchi. HEART: Regular rate and rhythm without murmurs, rubs or gallops. S1 and S2 heard. EXTREMITIES: Normal range of motion, no edema. No clubbing or cyanosis. Peripheral pulses intact. ASSESSMENT Chest pain, atypical, acute coronary syndrome has been ruled out Hypertension Type 2 Diabetes Dyslipidemia PLAN An acute coronary event has been ruled out with no EKG evidence of ischemia and negative cardiac enzymes. We will increase lisinopril to 10 mg daily Dobutamine stress test to assess for stress induced cardiac ischemia. If abnormal will consider coronary angiography. From cardiology perspective if stress echo negative okay for patient to be discharged Follow up with Dr. Londono in the office Nurse Practitioner note has been reviewed, I agree with a documented findings and plan of care. Patient was seen and examined. Objective - Vital Signs Vital signs: Vital Signs Temp 98.7 F 02/14/21 06:28 Pulse 62 02/14/21 06:28 Resp 16 02/14/21 06:28 BP 183/77 02/14/21 06:28 Pulse Ox 97 02/14/21 06:28 Intake & Output 02/13/21 02/14/21 02/14/21 18:59 06:59 18:59 Intake Total 400 0 Balance 400 0 Intake: Oral 400 0 Other: Voiding Method Toilet Toilet # Voids 1 1 - Labs CBC & Chem 7: 02/13/21 05:53 02/13/21 05:53 Labs: Abnormal Lab Results - Last 24 Hours (Table) 02/13/21 02/13/21 02/13/21 Range/Units 11:58 17:00 20:13 POC Glucose (mg/dL) 171 H 139 H 209 H (75-99) mg/dL 02/14/21 Range/Units 06:34 POC Glucose (mg/dL) 109 H (75-99) mg/dL
[2021-02-14 12:17] LABS: Glucose,Whole Blood 72 mg/dL (75-99)
--- NOTE | 2021-02-14 13:25 | P.STRESS ---
- Stress Test Note Stress Test Results/Findings: Exam Performed: dobutamine stress echo with con Exam Date: 02/14/21 Reason for Exam: CP Height: 5 ft Weight: 61.23 kg Protocol: DOBUTAMINE STRESS ECHO W/ LUMASON Stage: 40 mcg Duration of Exercise: 15:40 Resting Heart Rate: 57 Resting Blood Pressure: 164/80 Maximum Achieved Heart Rate: 159 Maximum Achieved Blood Pressure: 226/84 85% PMHR: 132 100% PMHR: 155 METS: NA Technologist Comment: Stress Test Results/Findings: Baseline heart rate 57 beats a minute, Baseline blood pressure 164/80 mmHg Baseline 12-lead EKG shows [address] depression inferiorly and 0.[address] depression laterally in the precordial leads Patient received dobutamine infusion per protocol followed by atropine There was a [address] depression noted inferiorly as well as laterally that extends from the recovery Baseline 2-D echo images showed normal LV systolic function With dobutamine infusion there was stepwise augmentation of overall LV contractility without development of any wall motion modalities Occasional images were off axis However there was no clear echocardiographic evidence for ischemia Impression Baseline abdomen 13 ECG with a [address] depression in the inferior leads The dobutamine infusion the patient experienced [address] depression, upsloping No echocardiographic evidence for ischemia
[2021-02-14 13:59] VITALS: BP 158/78; PULSE 64; RESP 20
--- NOTE | 2021-02-14 21:47 | P.DS ---
Providers Date of admission: 02/12/21 19:58 Expected date of discharge: 02/14/21 Attending physician: Kevyn Luciano Consults: 02/12/21 19:58 Consult Physician Urgent Consulting Provider: Kasi Pacheco Consult Reason/Comments: chest pain Do you want consulting provider notified?: Yes Primary care physician: Kevyn Luciano - Discharge Diagnosis(es) (1) Blurred vision, left eye Status: Acute (2) Chest pain Status: Acute (3) Diabetes type 2, uncontrolled Status: Acute (4) Hyperglycemia Status: Acute (5) Hypertension Status: Acute (6) Symptomatic sinus bradycardia Status: Acute Patient Condition at Discharge: Stable Plan - Discharge Summary Discharge Rx Participant: Yes New Discharge Prescriptions: New lisinopriL [Zestril] 10 mg PO DAILY tab Continue Insulin Glargine [Lantus] 30 unit SQ HS INSULIN ASPART (NovoLOG) [NovoLOG (formulary)] 15 unit SQ AC-TID Atorvastatin [Lipitor] 20 mg PO HS Cranberry Fruit Concentrate [Azo Cranberry] 250 mg PO HS Discontinued lisinopriL [Zestril] 5 mg PO HS #30 tab Discharge Medication List Insulin Glargine [Lantus] 30 unit SQ HS 05/14/19 [History] INSULIN ASPART (NovoLOG) [NovoLOG (formulary)] 15 unit SQ AC-TID 10/06/19 [History] Atorvastatin [Lipitor] 20 mg PO HS 02/12/21 [History] Cranberry Fruit Concentrate [Azo Cranberry] 250 mg PO HS 02/12/21 [History] lisinopriL [Zestril] 10 mg PO DAILY tab 02/14/21 [Rx] Follow up Appointment(s)/Referral(s): Kevyn Luciano DO [Primary Care Provider] - 1 Week Leandro Londono MD [STAFF PHYSICIAN] - 02/24/21 4:15 pm Patient Instructions/Handouts: Chest Pain (DC) Discharge Disposition: HOME SELF-CARE Care Plan Goals (MU): Patient will be discharged today she was cleared by cardiology for symptomatic bradycardia all testing was completed and unremarkable patient doesn't not need a pacemaker at this time. She'll follow-up in the office in one week she will follow-up with cardiology in 2 weeks
== END 2021-02-14 14:56 | disposition home or self-care (01) ==
LOC: EC 18:18 → 6NMEDSUR 19:58
PROVIDERS: ADMIT Family Medicine; ATTEND Family Medicine
DX: R07.89 Other chest pain (principal); E11.65 Type 2 diabetes mellitus with hyperglycemia; R00.1 Bradycardia, unspecified; I11.0 Hypertensive heart disease with heart failure; I50.9 Heart failure, unspecified; I48.91 Unspecified atrial fibrillation; I25.10 Atherosclerotic heart disease of native coronary artery without angina pectoris; H53.8 Other visual disturbances; R42 Dizziness and giddiness; R61 Generalized hyperhidrosis; E78.5 Hyperlipidemia, unspecified; G40.909 Epilepsy, unspecified, not intractable, without status epilepticus; J44.9 Chronic obstructive pulmonary disease, unspecified; M06.9 Rheumatoid arthritis, unspecified; M79.7 Fibromyalgia; G47.30 Sleep apnea, unspecified; K21.9 Gastro-esophageal reflux disease without esophagitis; M19.90 Unspecified osteoarthritis, unspecified site; G43.909 Migraine, unspecified, not intractable, without status migrainosus; M10.9 Gout, unspecified; K57.90 Diverticulosis of intestine, part unspecified, without perforation or abscess without bleeding; K58.9 Irritable bowel syndrome, unspecified; I83.90 Asymptomatic varicose veins of unspecified lower extremity; F32.9 Major depressive disorder, single episode, unspecified; F41.9 Anxiety disorder, unspecified; F43.10 Post-traumatic stress disorder, unspecified; E66.9 Obesity, unspecified; Z68.26 Body mass index [BMI] 26.0-26.9, adult; Z20.822 Contact with and (suspected) exposure to COVID-19; Z79.4 Long term (current) use of insulin; Z79.899 Other long term (current) drug therapy; Z88.1 Allergy status to other antibiotic agents; Z88.5 Allergy status to narcotic agent; Z88.0 Allergy status to penicillin; Z88.2 Allergy status to sulfonamides; Z88.8 Allergy status to other drugs, medicaments and biological substances; Z87.01 Personal history of pneumonia (recurrent); Z86.73 Personal history of transient ischemic attack (TIA), and cerebral infarction without residual deficits; Z90.49 Acquired absence of other specified parts of digestive tract; Z90.710 Acquired absence of both cervix and uterus; Z98.84 Bariatric surgery status; Z85.43 Personal history of malignant neoplasm of ovary; Z98.890 Other specified postprocedural states; Z87.440 Personal history of urinary (tract) infections; Z95.5 Presence of coronary angioplasty implant and graft; Z82.49 Family history of ischemic heart disease and other diseases of the circulatory system; Z83.3 Family history of diabetes mellitus; Z80.9 Family history of malignant neoplasm, unspecified; Z83.79 Family history of other diseases of the digestive system; Z83.49 Family history of other endocrine, nutritional and metabolic diseases; Z82.0 Family history of epilepsy and other diseases of the nervous system
CPT/HCPCS: 96375; 93005 ×3; 96374; 99285; 36415; 85379; 83880; 80053 ×2; 83735; 84484 ×2; 85025 ×2; 85610; 85730; 87635; 71046; G0378 ×3; C8930; J2270; C9113; Q9950; 93351

== ENCOUNTER 2021-02-23 10:59 | Observation (INO) | payer MEDICARE ==
--- NOTE | 2021-02-23 11:21 | ED ---
General Adult HPI - General Source: patient, RN notes reviewed Mode of arrival: ambulatory Limitations: no limitations <Barry Palumbo - Last Filed: 02/23/21 11:17> - General Source: patient, RN notes reviewed, old records reviewed Mode of arrival: ambulatory Limitations: no limitations <López Franklin - Last Filed: 02/23/21 14:05> - General Stated complaint: DELLA/Abd Pain/Infection on feet Time Seen by Provider: 02/23/21 11:17 - History of Present Illness Initial comments: 55-year-old female presents emergency Department with chief complaint of shortness breath, abdominal pain, toe infection. Patient states that she's been having increasing shortness of breath especially with exertion. Mild chest tightness. Patient states that she's been having lower abdominal pain. Patient had multiple abdominal surgeries including colon resection, gastric sleeve, hernia repair. Patient denies any fevers or chills no dysuria no hematuria patient had mild constipation. Patient states she is known diabetic states that she is some redness around her toe first on the left. (Barry Palumbo) Patient is a pleasant 65-year-old female presenting to the emergency department with exertional dyspnea and chest pain. Symptoms have been present for the past week. Patient was in the emergency department and hospital a week ago and was then released. Patient still has symptoms. Symptoms mild at rest at this time. Patient also last day or 2 has developed an infection on her left great toe. He'll little bit on her left second toe. Patient does admit to having some abdominal discomfort however states this is chronic and unchanged. (López Franklin) - Related Data Home Medications Medication Instructions Recorded Confirmed Insulin Glargine [Lantus] 30 unit SQ HS 05/14/19 02/23/21 INSULIN ASPART (NovoLOG) [NovoLOG 15 unit SQ AC-TID 10/06/19 02/23/21 (formulary)] Atorvastatin [Lipitor] 20 mg PO HS 02/12/21 02/23/21 Cranberry Fruit Concentrate [Azo 250 mg PO HS 02/12/21 02/23/21 Cranberry] Previous Rx's Medication Instructions Recorded lisinopriL [Zestril] 10 mg PO DAILY tab 02/14/21 Allergies Allergy/AdvReac Type Severity Reaction Status Date / Time ampicillin Allergy Rash/Hives Verified 02/23/21 12:34 codeine Allergy Rash/Hives Verified 02/23/21 12:34 erythromycin base Allergy Rash/Hives Verified 02/23/21 12:34 indomethacin Allergy Per [facility] Verified 02/23/21 12:34 lidocaine Allergy Per [facility] Verified 02/23/21 12:34 lorazepam [From Ativan] Allergy Rash/Hives Verified 02/23/21 12:34 Penicillins Allergy Rash/Hives Verified 02/23/21 12:34 Sulfa (Sulfonamide Allergy Rash/Hives Verified 02/23/21 12:34 Antibiotics) Review of Systems ROS Other: All systems not noted in ROS Statement are negative. <Barry Palumbo - Last Filed: 02/23/21 11:17> ROS Other: All systems not noted in ROS Statement are negative. Constitutional: Denies: fever Eyes: Denies: eye pain ENT: Denies: ear pain Respiratory: Reports: as per HPI, dyspnea. Denies: cough Cardiovascular: Reports: as per HPI, chest pain Endocrine: Denies: fatigue Gastrointestinal: Reports: as per HPI Genitourinary: Denies: urgency Musculoskeletal: Denies: back pain Skin: Reports: as per HPI, rash <López Franklin - Last Filed: 02/23/21 14:05> ROS Statement: Those systems with pertinent positive or pertinent negative responses have been documented in the HPI. Past Medical History Past Medical History: Atrial Fibrillation, Asthma, Cancer, Chest Pain / Angina, Heart Failure, COPD, Diabetes Mellitus, Fibromyalgia, GERD/Reflux, Hyperlipidemia, Hypertension, Osteoarthritis (OA), Pneumonia, Rheumatoid Arthritis (RA), Seizure Disorder, Sleep Apnea/CPAP/BIPAP Additional Past Medical History / Comment(s): mult TIA-no effects, migraines, irregular heartbeat, varicose veins, no cpap used, oxygen PRN for migraines, hx ulcer, IBS, gout, UTI's, ovarian cancer, diverticulitis History of Any Multi-Drug Resistant Organisms: None Reported Past Surgical History: Appendectomy, Bariatric Surgery, Cholecystectomy, Hernia Repair, Hysterectomy, Joint Replacement, Orthopedic Surgery Additional Past Surgical History / Comment(s): rt hip replacement, rt shoulder rotator Past Anesthesia/Blood Transfusion Reactions: Previous Problems w/ Anesthesia Additional Past Anesthesia/Blood Transfusion Reaction / Comment(s): spray used to numb throat-had anaphylaxis(does not know name). slow to wake up Past Psychological History: Anxiety, Depression, PTSD Additional Psychological History / Comment(s): . Smoking Status: Never smoker Past Alcohol Use History: None Reported Past Drug Use History: None Reported - Past Family History Father Family Medical History: Cancer Additional Family Medical History / Comment(s): . Mother Family Medical History: Coronary Artery Disease (CAD), Dementia, Diabetes Mellitus, Thyroid Disorder Additional Family Medical History / Comment(s): diverticulitis, Sister(s) Family Medical History: Cancer <Barry Palumbo - Last Filed: 02/23/21 11:17> General Exam General appearance: alert, in no apparent distress <Barry Palumbo - Last Filed: 02/23/21 11:17> Limitations: no limitations General appearance: alert, in no apparent distress Head exam: Present: normocephalic Eye exam: Present: normal appearance Neck exam: Present: normal inspection Respiratory exam: Present: normal lung sounds bilaterally Cardiovascular Exam: Present: regular rate, normal rhythm Expanded Peripheral pulses: 2+: Radial (R), Radial (L), Dorsalis Pedis (R), Dorsalis Pedis (L) GI/Abdominal exam: Present: soft. Absent: tenderness Extremities exam: Present: normal inspection Neurological exam: Present: alert Psychiatric exam: Present: normal affect, normal mood Skin exam: Present: other (left Great toe with erythema and swelling and tenderness. Minimal erythema fifth toe.) <López Franklin - Last Filed: 02/23/21 14:05> Course Vital Signs 02/23/21 02/23/21 11:17 12:38 Temperature 98.4 F Pulse Rate 68 Respiratory 18 20 Rate Blood Pressure 195/77 O2 Sat by Pulse 98 Oximetry EKG Findings - EKG Comments: EKG Findings:: Normal sinus rhythm with a rate of 66. MD 158. QRS 72. QT 418. QTC 4:30. Left axis. Normal QRS. No acute ST change. <López Franklin Filed: 02/23/21 14:05> Medical Decision Making - Lab Data Result diagrams: 02/23/21 11:59 02/23/21 11:59 - Radiology Data Radiology results: image reviewed (X-ray left foot shows no Osteomyelitis. Chest x-ray shows no acute process. ) <López Franklin Filed: 02/23/21 14:05> - Medical Decision Making Patient reevaluated. Patient updated on results and plan. Case was discussed with Dr. Luciano, who will admit his patient. Repeat cardiac enzymes will be obtained. Blood cultures and IV antibiotics will be started. (López Franklin) - Lab Data Lab Results 02/23/21 02/23/21 02/23/21 Range/Units 11:59 11:59 11:59 WBC 9.2 (3.8-10.6) k/uL RBC 4.98 (3.80-5.40) m/uL Hgb 14.3 (11.4-16.0) gm/dL Hct 45.0 (34.0-46.0) % MCV 90.4 (80.0-100.0) fL MCH 28.8 (25.0-35.0) pg MCHC 31.8 (31.0-37.0) g/dL RDW 12.9 (11.5-15.5) % Plt Count 277 (150-450) k/uL MPV 7.7 Neutrophils % 74 % Lymphocytes % 18 % Monocytes % 5 % Eosinophils % 2 % Basophils % 1 % Neutrophils # 6.8 (1.3-7.7) k/uL Lymphocytes # 1.6 (1.0-4.8) k/uL Monocytes # 0.5 (0-1.0) k/uL Eosinophils # 0.2 (0-0.7) k/uL Basophils # 0.1 (0-0.2) k/uL PT 10.0 (9.0-12.0) sec INR 0.9 (<1.2) APTT 24.2 (22.0-30.0) sec Sodium 139 (137-145) mmol/L Potassium 4.7 (3.5-5.1) mmol/L Chloride 106 (98-107) mmol/L Carbon Dioxide 26 (22-30) mmol/L Anion Gap 7 mmol/L BUN 18 H (7-17) mg/dL Creatinine 0.71 (0.52-1.04) mg/dL Est GFR (CKD-EPI)AfAm >90 (>60 ml/min/1.73 sqM) Est GFR (CKD-EPI)NonAf >90 (>60 ml/min/1.73 sqM) Glucose 230 H (74-99) mg/dL Plasma Lactic Acid Tawanda (0.7-2.0) mmol/L Calcium 9.7 (8.4-10.2) mg/dL Magnesium 2.0 (1.6-2.3) mg/dL Total Bilirubin 0.5 (0.2-1.3) mg/dL AST 33 (14-36) U/L ALT 24 (4-34) U/L Alkaline Phosphatase 233 H (38-126) U/L Troponin I (0.000-0.034) ng/mL Total Protein 6.6 (6.3-8.2) g/dL Albumin 3.8 (3.5-5.0) g/dL Lipase 117 (23-300) U/L Coronavirus (PCR) (Not Detectd) 02/23/21 02/23/21 02/23/21 Range/Units 11:59 11:59 12:51 WBC (3.8-10.6) k/uL RBC (3.80-5.40) m/uL Hgb (11.4-16.0) gm/dL Hct (34.0-46.0) % MCV (80.0-100.0) fL MCH (25.0-35.0) pg MCHC (31.0-37.0) g/dL RDW (11.5-15.5) % Plt Count (150-450) k/uL MPV Neutrophils % % Lymphocytes % % Monocytes % % Eosinophils % % Basophils % % Neutrophils # (1.3-7.7) k/uL Lymphocytes # (1.0-4.8) k/uL Monocytes # (0-1.0) k/uL Eosinophils # (0-0.7) k/uL Basophils # (0-0.2) k/uL PT (9.0-12.0) sec INR (<1.2) APTT (22.0-30.0) sec Sodium (137-145) mmol/L Potassium (3.5-5.1) mmol/L Chloride (98-107) mmol/L Carbon Dioxide (22-30) mmol/L Anion Gap mmol/L BUN (7-17) mg/dL Creatinine (0.52-1.04) mg/dL Est GFR (CKD-EPI)AfAm (>60 ml/min/1.73 sqM) Est GFR (CKD-EPI)NonAf (>60 ml/min/1.73 sqM) Glucose (74-99) mg/dL Plasma Lactic Acid Tawanda 1.5 (0.7-2.0) mmol/L Calcium (8.4-10.2) mg/dL Magnesium (1.6-2.3) mg/dL Total Bilirubin (0.2-1.3) mg/dL AST (14-36) U/L ALT (4-34) U/L Alkaline Phosphatase (38-126) U/L Troponin I <0.012 (0.000-0.034) ng/mL Total Protein (6.3-8.2) g/dL Albumin (3.5-5.0) g/dL Lipase (23-300) U/L Coronavirus (PCR) Not Detected (Not Detectd) Disposition <Barry Palumbo - Last Filed: 02/23/21 11:17> Is patient prescribed a controlled substance at d/c from ED?: No Decision Time: 14:05 <López Franklin - Last Filed: 02/23/21 14:05> Clinical Impression: Cellulitis of great toe, left, Chest pain, Exertional dyspnea Disposition: ADMITTED IP TO THIS HOSP Referrals: Kevyn Luciano DO [Primary Care Provider] - 1-2 days
[2021-02-23 12:16] LABS: Basophils # (A) 0.1 k/uL (0-0.2); Basophils % (A) 1 %; Eosinophils # (A) 0.2 k/uL (0-0.7); Eosinophils % (A) 2 %; HGB 14.3 gm/dL (11.4-16.0); Lymphocytes # (A) 1.6 k/uL (1.0-4.8); Lymphocytes % (A) 18 %; MCH 28.8 pg (25.0-35.0); MCHC 31.8 g/dL (31.0-37.0); MCV 90.4 fL (80.0-100.0); Mean Platelet Volume 7.7; Monocytes # (A) 0.5 k/uL (0-1.0); Monocytes % (A) 5 %; Neutrophils # (A) 6.8 k/uL (1.3-7.7); Neutrophils % (A) 74 %; Platelet Count 277 k/uL (150-450); RBC 4.98 m/uL (3.80-5.40); RDW 12.9 % (11.5-15.5); WBC 9.2 k/uL (3.8-10.6)
[2021-02-23 12:24] LABS: INR 0.9 (<1.2); Partial Thromboplastin Time 24.2 sec (22.0-30.0)
--- NOTE | 2021-02-23 12:25 | XR ---
EXAMINATION TYPE: XR chest 2V DATE OF EXAM: 02/23/2021 COMPARISON: Chest x-ray 02/12/2021 HISTORY: Difficulty breathing TECHNIQUE: Frontal and lateral views of the chest are obtained. FINDINGS: There is no focal air space opacity, pleural effusion, or pneumothorax seen. The cardiac silhouette size is within normal limits. The osseous structures are intact, there is thoracic spond ylosis. IMPRESSION: No acute cardiopulmonary process.
[2021-02-23 12:27] LABS: ALT 24 U/L (4-34); AST 33 U/L (14-36); African American GFR (CKD) >90 (>60 ml/min/1.73 sqM); Albumin 3.8 g/dL (3.5-5.0); Alkaline Phosphatase 233 U/L (38-126); Anion Gap 7 mmol/L; Blood Urea Nitrogen 18 mg/dL (7-17); Calcium 9.7 mg/dL (8.4-10.2); Carbon Dioxide 26 mmol/L (22-30); Chloride 106 mmol/L (98-107); Glucose 230 mg/dL (74-99); Lipase 117 U/L (23-300); Non-African American GFR(CKD) >90 (>60 ml/min/1.73 sqM); Potassium 4.7 mmol/L (3.5-5.1); Sodium 139 mmol/L (137-145); Total Bilirubin 0.5 mg/dL (0.2-1.3); Total Protein 6.6 g/dL (6.3-8.2)
--- NOTE | 2021-02-23 13:21 | XR ---
EXAMINATION TYPE: XR foot complete LT DATE OF EXAM: 02/23/2021 CLINICAL HISTORY: Left foot in particular great toe swelling and redness. TECHNIQUE: Frontal, lateral, and oblique images of the left foot are obtained. COMPARISON: None FINDINGS: There is no acute fracture/dislocation evident in the left foot. No suspicious bony destru ction. The joint spaces in the left foot appear within normal limits. Some flexion in the toes is pr esent. There is small inferior calcaneal spur. There is 1 to 2 mm punctate foreign body just below sk in surface posterior inferior to the calcaneal margin. Correlate clinically. IMPRESSION: As above.
[2021-02-23] MEDS ORDERED: LEVOFLOXACIN 750MG-D5W PMX 750 MG in DEXTROSE/WATER 1 150ML.BAG IVPB STA (14:05)
[2021-02-23] MEDS ORDERED: ASPIRIN 81 MG PO STA (14:06)
[2021-02-23] MEDS ORDERED: NITROGLYCERIN SL TABS 0.4 MG TAB SUBLINGUAL PRN (14:06)
[2021-02-23] MEDS: NITROGLYCERIN OINT 1 INCH/GM PACKET TOPICAL SCH (17:14)
[2021-02-23 17:26] LABS: Glucose,Whole Blood 75 mg/dL (75-99)
[2021-02-23 23:37] LABS: Glucose,Whole Blood 165 mg/dL (75-99)
[2021-02-24] MEDS: IBUPROFEN 800 MG TAB PO PRN ×3 (02:53→19:45)
[2021-02-24] MEDS: NITROGLYCERIN OINT 1 INCH/GM PACKET TOPICAL SCH ×2 (04:46→05:31)
[2021-02-24 07:07] LABS: Glucose,Whole Blood 172 mg/dL (75-99)
[2021-02-24 08:34] LABS: Appearance,Urine Clear (Clear); Bilirubin,Urine Negative (Negative); Blood,Urine Negative (Negative); Color,Urine Yellow; Glucose,Urine (UA) 4+ (Negative); Ketones,Urine Negative (Negative); Leukocyte Esterase,Urine Moderate (Negative); Mucus,Urine Rare /hpf; Nitrite,Urine Positive (Negative); Protein,Urine Trace (Negative); RBC,Urine 2 /hpf (0-5); Specific Gravity,Urine 1.025 (1.001-1.035); Squamous Epithelial Cell,Urine 2 /hpf (0-4); Urobilinogen,Urine <2.0 mg/dL (<2.0); WBC,Urine 32 /hpf (0-5)
[2021-02-24] MEDS ORDERED: lisinopriL 10 MG TAB PO SCH (09:00)
[2021-02-24] MEDS ORDERED: PANTOPRAZOLE 40 MG/10 ML VIAL IVP SCH (09:00)
[2021-02-24] MEDS ORDERED: ASPIRIN 325 MG TAB PO SCH (09:00)
[2021-02-24] MEDS ORDERED: lisinopriL 10 MG TAB PO STA (10:19)
[2021-02-24 10:46] LABS: Chol/HDL Ratio 2.64; LDL Cholesterol,Calculated 63.2 mg/dL (0.0-131.0); VLDL Calculation 18.8 mg/dL (5.00-40.00)
--- NOTE | 2021-02-24 10:55 | P.CRDCN ---
History of Present Illness History of present illness: HISTORY OF PRESENTING ILLNESS This is a pleasant 65-year-old female past medical history significant for hypertension, dyslipidemia and diabetes mellitus. She follows in the office with Dr. Londono. We have been asked to see in consultation for chest pain. She states yesterday while sitting in her recliner chair she had an acute onset of sharp discomfort in the midsternal region. It was associated with feeling short of breath like she could not take a deep breath. The pain was worsened by deep breathing. She denies associated dizziness, palpitations, nausea, vomiting or diaphoresis. The pain did not radiate to the arm, back, neck or jaw. She had a similar type pain 2 weeks ago and presented to the hospital and underwent a dobutamine stress echocardiogram that was negative for stress-induced cardiac ischemia. Upon discharge she was chest pain-free and has felt good until yesterday. DIAGNOSTICS EKG reveals sinus mechanism heart rate of 66, left axis deviation and nonspecific abnormalities. Telemetry tracings indicate 9's mechanism with no arrhythmias or pauses. Chest xray negative for an acute cardiopulmonary process. Laboratory reviewed, cardiac enzymes negative 3, CBC unremarkable, d-dimer 0.67, sodium 139, potassium 4.7, creatinine 0.71, NT proBNP 118 and magnesium 2.0. Current cardiac medications include atorvastatin 20 mg daily and lisinopril 10 mg daily. She underwent cardiac catheterization in 2017 revealing normal coronary arteries. Most recent echocardiogram obtained in 2019 revealed preserved LV systolic function with ejection fraction greater than 55%. REVIEW OF SYSTEMS At the time of my exam: CONSTITUTIONAL: Denies fever or chills. CARDIOVASCULAR: Denies chest pain, shortness of breath, orthopnea, PND or palpitations. RESPIRATORY: Denies cough. GASTROINTESTINAL: Denies abdominal pain, diarrhea, constipation, nausea or vom iting. MUSCULOSKELETAL: Denies myalgias. NEUROLOGIC: Denies numbness, tingling, headacbe or weakness. ENDOCRINE: Denies fatigue, weight change, polydipsia or polyurina. GENITOURINARY: Denies burning, hematuria or urgency with micturation. HEMATOLOGIC: Denies history of anemia or bleeding. PHYSICAL EXAMINATION Blood pressure 183/78 heart rate 71 afebrile and maintaining oxygen saturation on room air. CONSTITUTIONAL: No apparent distress. HEENT: Head is normocephalic. Pupils are equal, round. Sclerae anicteric. Mucous membranes of the mouth are moist. No JVD. No carotid bruit. CHEST EXAMINATION: Lungs are clear to auscultation. No chest wall tenderness is noted on palpation or with deep breathing. HEART EXAMINATION: Regular rate and rhythm. S1, S2 heard. No murmurs, gallops or rub. ABDOMEN: Soft, nontender. Positive bowel sounds. EXTREMITIES: 2+ peripheral pulses, no lower extremity edema and no calf tenderness. NEUROLOGIC EXAMINATION: Patient is awake, alert and oriented x3. ASSESSMENT Chest pain, atypical and pleuritic Hypertension, uncontrolled Dyslipidemia Diabetes mellitus PLAN Pain is atypical for angina, recent normal stress test and normal coronary arteries documented in 2017. Pain has pleuritic features. Would rule out pulmonary embolism. Obtain CTA to assess for PE given her elevated d-dimer and pleuritic chest pain with shortness of breath. Obtain 2D echocardiogram to assess cardiac structure and function. Increase lisinopril to 20 mg daily, give additional dose now. Further recommendations to follow based on clinical course. Thank you kindly for this consultation. Nurse Practitioner note has been reviewed, I agree with a documented findings and plan of care. Patient was seen and examined. Past Medical History Past Medical History: Atrial Fibrillation, Asthma, Cancer, Chest Pain / Angina, Heart Failure, COPD, Diabetes Mellitus, Fibromyalgia, GERD/Reflux, Hyperlipidemia, Hypertension, Osteoarthritis (OA), Pneumonia, Rheumatoid Arthritis (RA), Seizure Disorder, Sleep Apnea/CPAP/BIPAP Additional Past Medical History / Comment(s): mult TIA-no effects, migraines, irregular heartbeat, varicose veins, no cpap used, oxygen PRN for migraines, hx ulcer, IBS, gout, UTI's, ovarian cancer, diverticulitis History of Any Multi-Drug Resistant Organisms: None Reported Past Surgical History: Appendectomy, Bariatric Surgery, Cholecystectomy, Hernia Repair, Hysterectomy, Joint Replacement, Orthopedic Surgery Additional Past Surgical History / Comment(s): rt hip replacement, rt shoulder rotator Past Anesthesia/Blood Transfusion Reactions: Previous Problems w/ Anesthesia Additional Past Anesthesia/Blood Transfusion Reaction / Comment(s): spray used to numb throat-had anaphylaxis(does not know name). slow to wake up Past Psychological History: Anxiety, Depression, PTSD Additional Psychological History / Comment(s): . Smoking Status: Never smoker Past Alcohol Use History: None Reported Past Drug Use History: None Reported - Past Family History Father Family Medical History: Cancer Additional Family Medical History / Comment(s): . Mother Family Medical History: Coronary Artery Disease (CAD), Dementia, Diabetes Mellitus, Thyroid Disorder Additional Family Medical History / Comment(s): diverticulitis, Sister(s) Family Medical History: Cancer Medications and Allergies Home Medications Medication Instructions Recorded Confirmed Type Insulin Glargine [Lantus] 30 unit SQ HS 05/14/19 02/23/21 History INSULIN ASPART (NovoLOG) [NovoLOG 15 unit SQ AC-TID 10/06/19 02/23/21 History (formulary)] Atorvastatin [Lipitor] 20 mg PO HS 02/12/21 02/23/21 History Cranberry Fruit Concentrate [Azo 250 mg PO HS 02/12/21 02/23/21 History Cranberry] lisinopriL [Zestril] 10 mg PO DAILY tab 02/14/21 02/23/21 Rx Allergies Allergy/AdvReac Type Severity Reaction Status Date / Time ampicillin Allergy Rash/Hives Verified 02/23/21 12:34 codeine Allergy Rash/Hives Verified 02/23/21 12:34 erythromycin base Allergy Rash/Hives Verified 02/23/21 12:34 indomethacin Allergy Per [facility] Verified 02/23/21 12:34 lidocaine Allergy Per [facility] Verified 02/23/21 12:34 lorazepam [From Ativan] Allergy Rash/Hives Verified 02/23/21 12:34 Penicillins Allergy Rash/Hives Verified 02/23/21 12:34 Sulfa (Sulfonamide Allergy Rash/Hives Verified 02/23/21 12:34 Antibiotics) Physical Exam Vitals: Vital Signs Temp Pulse Pulse Resp BP BP Pulse Ox 02/24/21 07:00 97.9 F 71 16 183/78 95 02/24/21 05:00 98.0 F 67 16 170/69 97 02/24/21 04:49 98.0 F 67 18 169/91 98 02/24/21 01:00 65 18 198/77 97 02/23/21 23:10 69 18 171/85 98 02/23/21 17:26 80 18 172/70 98 02/23/21 12:38 20 02/23/21 11:17 98.4 F 68 18 195/77 98 Intake and Output 02/23/21 02/24/21 02/24/21 22:59 06:59 14:59 Intake Total 0 0 Balance 0 0 Intake: Oral 0 0 Other: Voiding Method Toilet Weight 61.235 kg Results 02/23/21 11:59 02/23/21 11:59 Cardiac Enzymes 02/23/21 02/23/21 02/23/21 Range/Units 11:59 11:59 14:49 AST 33 (14-36) U/L Troponin I <0.012 <0.012 (0.000-0.034) ng/mL 02/23/21 Range/Units 18:10 AST (14-36) U/L Troponin I <0.012 (0.000-0.034) ng/mL Coagulation 02/23/21 Range/Units 11:59 PT 10.0 (9.0-12.0) sec APTT 24.2 (22.0-30.0) sec CBC 02/23/21 Range/Units 11:59 WBC 9.2 (3.8-10.6) k/uL RBC 4.98 (3.80-5.40) m/uL Hgb 14.3 (11.4-16.0) gm/dL Hct 45.0 (34.0-46.0) % Plt Count 277 (150-450) k/uL Comprehensive Metabolic Panel 02/23/21 Range/Units 11:59 Sodium 139 (137-145) mmol/L Potassium 4.7 (3.5-5.1) mmol/L Chloride 106 (98-107) mmol/L Carbon Dioxide 26 (22-30) mmol/L BUN 18 H (7-17) mg/dL Creatinine 0.71 (0.52-1.04) mg/dL Glucose 230 H (74-99) mg/dL Calcium 9.7 (8.4-10.2) mg/dL AST 33 (14-36) U/L ALT 24 (4-34) U/L Alkaline Phosphatase 233 H (38-126) U/L Total Protein 6.6 (6.3-8.2) g/dL Albumin 3.8 (3.5-5.0) g/dL Current Medications Generic Name Dose Route Start Last Admin Trade Name Freq PRN Reason Stop Dose Admin Aspirin 325 mg 02/24/21 09:00 Aspirin 325 Mg Tab PO DAILY KERRIE Levofloxacin 750 mg/ IV 150 mls @ 100 mls/hr 02/24/21 16:00 Solution IVPB Q24H [facility] Ibuprofen 800 mg 02/24/21 02:16 02/24/21 02:53 Ibuprofen 800 Mg Tab PO 800 mg QID PRN Administration Pain Nitroglycerin 0.4 mg 02/23/21 14:06 Nitroglycerin Sl Tabs 0.4 Mg Tab SUBLINGUAL Q5M PRN Chest Pain Nitroglycerin 1 inch 02/23/21 18:00 02/24/21 05:31 Nitroglycerin Oint 1 Inch/Gm Packet TOPICAL Not Given Q6HR [facility] Sodium Chloride 10 ml 02/23/21 21:00 02/23/21 23:39 Sodium Chloride 0.9% Flush 10 Ml Syringe IV 10 ml BID [facility] Administration Intake and Output 02/23/21 02/24/21 02/24/21 22:59 06:59 14:59 Intake Total 0 0 Balance 0 0 Intake: Oral 0 0 Other: Voiding Method Toilet Weight 61.235 kg 02/23/21 11:59 02/23/21 11:59
[2021-02-24 11:52] LABS: Glucose,Whole Blood 128 mg/dL (75-99)
[2021-02-24] MEDS: INSULIN ASPART (NovoLOG) 100 UNIT/ML VIAL SQ SCH ×3 (11:58→21:16)
--- NOTE | 2021-02-24 12:22 | CT ---
CT CHEST FOR PULMONARY EMBOLISM. EXAMINATION TYPE: CT angio chest DATE OF EXAM: 02/24/2021 INDICATION: Elevated d-dimer CT DLP: 272.60 mGycm, Automated exposure control for dose reduction was used. CONTRAST: Patient injected with 100 ml mL of Isovue 370. COMPARISON: None TECHNIQUE: CT of the chest is performed on a spiral scan at 2 mm thick sections. Study is performed with intravenous contrast timed for evaluation for pulmonary embolism. This will limit additional po rtions of the evaluation. 3-D MIP images reconstructed by the technologist are reviewed on the compu ter in the coronal and sagittal planes. FINDINGS: There is a filling defect within the left upper lobe pulmonary artery. Example image series 4 image 4 0. No mediastinal or hilar adenopathy enlarged by CT criteria is evident. The ascending aorta diameter at the level of the main pulmonary artery is 2.8 cm. The main pulmonary artery diameter at the bifur cation is 2.3 cm. No suspicious consolidations. Limited CT section through the upper abdomen. Some mild thickening of the right adrenal gland may be present. IMPRESSIONS: 1. There is an incompletely obstructing filling defect within the left upper lobe pulmonary artery co mpatible with pulmonary embolism.
--- NOTE | 2021-02-24 12:49 | ECHOF ---
Referral Reason:cp MEASUREMENTS -------- HEIGHT: 152.4 cm WEIGHT: 61.2 kg BP: IVSd: 1.1 cm (0.6 - 1.1) LVIDd: 4.6 cm (3.9 - 5.3) LVPWd: 1.4 cm (0.6 - 1.1) IVSs: 1.5 cm LVIDs: 3.9 cm LVPWs: 1.3 cm LA Diam: 3.7 cm (2.7 - 3.8) LAESV Index (A-L): 32.59 ml/m Ao Diam: 3.0 cm (2.0 - 3.7) AV Cusp: 1.5 cm (1.5 - 2.6) LA Diam: 4.0 cm (2.7 - 3.8) MV EXCURSION: 19.132 mm (> 18.000) MV EF SLOPE: 46 mm/s (70 - 150) EPSS: 0.9 cm MV E Kj: 0.75 m/s MV DecT: 357 ms MV A Kj: 1.22 m/s MV E/A Ratio: 0.62 RAP: 5.00 mmHg RVSP: 13.49 mmHg FINDINGS -------- Sinus rhythm. This was a technically good study. LV size, wall thickness and systolic function are normal, with an EF greater than 55%. The left gus tricular size is normal. The right ventricle is normal in size. LA is midly dilated 29-33ml/m2. The right atrial size is normal. There is mild aortic valve sclerosis. There is no evidence of aortic regurgitation. Mild mitral regurgitation is present. Mild tricuspid regurgitation present. Right ventricular systolic pressure is normal at < 35 mmHg. Trace/mild (physiologic) pulmonic regurgitation. The aortic root size is normal. There is no pericardial effusion. CONCLUSIONS -------- 1. LV size, wall thickness and systolic function are normal, with an EF greater than 55%. 2. The left ventricular size is normal. 3. The right ventricle is normal in size. 4. LA is midly dilated 29-33ml/m2. 5. The right atrial size is normal. 6. There is mild aortic valve sclerosis. 7. Mild mitral regurgitation is present. 8. Mild tricuspid regurgitation present. 9. Trace/mild (physiologic) pulmonic regurgitation. 10. The aortic root size is normal. 11. There is no pericardial effusion. VOLLEYBALL ASSISTANT COACH: Ivon Rodriguez RDCS
[2021-02-24] MEDS ORDERED: HEPARIN SODIUM 1,000 UN/ML (10ML VL) IV PRN (13:29)
[2021-02-24] MEDS ORDERED: HEPARIN SODIUM 1,000 UN/ML (10ML VL) IV ONE (13:29)
[2021-02-24] MEDS ORDERED: HEPARIN SOD,PORK IN 0.45% NACL 25,000 UNIT in 0.45% NACL 1 250ML.BAG IV SCH (13:30)
[2021-02-24 15:22] LABS: Partial Thromboplastin Time 22.5 sec (22.0-30.0); Prothrombin Time 10.8 sec (9.0-12.0)
--- NOTE | 2021-02-24 15:59 | US ---
EXAMINATION TYPE: US venous doppler duplex LE BI DATE OF EXAM: 02/24/2021 3:50 PM COMPARISON: NONE CLINICAL HISTORY: pe. SIDE PERFORMED: TECHNIQUE: The lower extremity deep venous system is examined utilizing real time linear array sonog yuliya with graded compression, doppler sonography and color-flow sonography. VESSELS IMAGED: Common Femoral Vein Deep Femoral Vein Greater Saphenous Vein * Femoral Vein Popliteal Vein Small Saphenous Vein * Proximal Calf Veins (* superficial vessels) Right Leg: Possible chronic changes in right femoral vein, small caliber vein with thready flow, the vein is compressible. Left Leg: Negative for DVT IMPRESSION: 1. There may be some chronic thrombus within the right lower extremity deep venous system. No complet e obstruction identified. 2. Left lower extremity ultrasound negative for deep venous thrombosis
[2021-02-24] MEDS ORDERED: LEVOFLOXACIN 750MG-D5W PMX 750 MG in DEXTROSE/WATER 1 150ML.BAG IVPB SCH (16:00)
--- NOTE | 2021-02-24 16:57 | P.CNPUL ---
History of Present Illness Consult date: 02/24/21 Requesting physician: Kevyn Luciano Reason for consult: dyspnea, chest pain Chief complaint: Dyspnea, chest pain History of present illness: 55-year-old white female patient of Dr. Luciano who came into the emergency department on 02 23 2021 for evaluation of shortness of breath, and chest tightness in the left upper chest. Her symptoms have been present for the past one week. She was recently hospitalized about a week ago from 02/12/2021 through 02/14/2021 when she came in with chest pain that was sharp in nature, precordial, unrelated to exertion. There were no clear-cut relieving or exac erbating factors. She had 3 sets of negative cardiac troponins. She was tested for COVID-19 and was negative, patient underwent dobutamine stress echo which found no echocardiographic evidence for ischemia, patient was discharged home on 02/14/2021. Following her discharge her symptoms persisted and she came back to the hospital for reevaluation. Chest x-ray showed no acute cardiopulmonary pro cess. EKG showed normal sinus rhythm. Patient had 3 sets of cardiac troponins that were less than 0.012. BNP was 118, CBC was unremarkable, electrolytes and renal profile were unremarkable. Patient had mildly elevated d-dimer of 0.67. CTA chest was completed showing incompletely obstructing filling defect within the left upper lobe pulmonary artery data bone with pulmonary embolism. No evidence of adenopathy, mediastinal or hilar. No suspicious consolidations. Echocardiogram showed EF greater than 55%, right ventricle is normal in size, no evidence of aortic sclerosis or regurgitation, mild MR and mild TR, with right- sided pressure of less than 35 mmHg. Patient was started on heparin infusion. Doppler of lower extremities revealed possible chronic changes in the right femoral vein, which was a small caliber vein with thready flow, and left leg was negative for DVT. Of note patient had a strong familial history of blood clots in the family, with multiple uncles on both sides, and her mother having a history of blood clots. In addition patient recently got back from [place], and this was a few weeks ago, patient did drive herself there and back. During our examination patient is awake and alert, appears to be in no acute distress, she is on room air, pulse ox is 95%, hemodynamically she is stable, breathing is nonlabored. Review of Systems All systems: negative Constitutional: Denies chills, Denies fever Eyes: denies blurred vision, denies pain Ears, nose, mouth and throat: Denies headache, Denies sore throat Cardiovascular: Reports chest pain, Denies shortness of breath Respiratory: Reports dyspnea, Denies cough Gastrointestinal: Denies abdominal pain, Denies diarrhea, Denies nausea, Denies vomiting Genitourinary: Denies dysuria, Denies hematuria Musculoskeletal: Denies myalgias Integumentary: Denies pruritus, Denies rash Neurological: Denies numbness, Denies weakness Psychiatric: Denies anxiety, Denies depression Endocrine: Denies fatigue, Denies weight change Past Medical History Past Medical History: Asthma, Cancer, Chest Pain / Angina, Heart Failure, COPD, Diabetes Mellitus, Fibromyalgia, GERD/Reflux, Hyperlipidemia, Hypertension, Osteoarthritis (OA), Pneumonia, Rheumatoid Arthritis (RA), Seizure Disorder, Sleep Apnea/CPAP/BIPAP Additional Past Medical History / Comment(s): mult TIA-no effects, migraines, irregular heartbeat, varicose veins, no cpap used, oxygen PRN for migraines, hx ulcer, IBS, gout, UTI's, ovarian cancer, diverticulitis History of Any Multi-Drug Resistant Organisms: None Reported Past Surgical History: Appendectomy, Bariatric Surgery, Cholecystectomy, Hernia Repair, Hysterectomy, Joint Replacement, Orthopedic Surgery Additional Past Surgical History / Comment(s): rt hip replacement, rt shoulder rotator Past Anesthesia/Blood Transfusion Reactions: Previous Problems w/ Anesthesia Additional Past Anesthesia/Blood Transfusion Reaction / Comment(s): spray used to numb throat-had anaphylaxis(does not know name). slow to wake up Past Psychological History: Anxiety, Depression, PTSD Additional Psychological History / Comment(s): . Smoking Status: Never smoker Past Alcohol Use History: None Reported Past Drug Use History: None Reported - Past Family History Father Family Medical History: Cancer Additional Family Medical History / Comment(s): . Mother Family Medical History: Coronary Artery Disease (CAD), Dementia, Diabetes Mellitus, Thyroid Disorder Additional Family Medical History / Comment(s): diverticulitis, Sister(s) Family Medical History: Cancer Medications and Allergies Home Medications Medication Instructions Recorded Confirmed Type Insulin Glargine [Lantus] 30 unit SQ HS 05/14/02/23/21 History INSULIN ASPART (NovoLOG) [NovoLOG 15 unit SQ AC-TID 10/06/19 02/23/21 History (formulary)] Atorvastatin [Lipitor] 20 mg PO HS 02/12/21 02/23/21 History Cranberry Fruit Concentrate [Azo 250 mg PO HS 02/12/21 02/23/21 History Cranberry] lisinopriL [Zestril] 10 mg PO DAILY tab 02/14/21 02/23/21 Rx Allergies Allergy/AdvReac Type Severity Reaction Status Date / Time ampicillin Allergy Rash/Hives Verified 02/23/21 12:34 codeine Allergy Rash/Hives Verified 02/23/21 12:34 erythromycin base Allergy Rash/Hives Verified 02/23/21 12:34 indomethacin Allergy Per [facility] Verified 02/23/21 12:34 lidocaine Allergy Per [facility] Verified 02/23/21 12:34 lorazepam [From Ativan] Allergy Rash/Hives Verified 02/23/21 12:34 Penicillins Allergy Rash/Hives Verified 02/23/21 12:34 Sulfa (Sulfonamide Allergy Rash/Hives Verified 02/23/21 12:34 Antibiotics) Physical Exam Vitals: Vital Signs Temp Pulse Pulse Resp BP BP Pulse Ox 02/24/21 14:37 97.3 F L 68 16 146/66 95 02/24/21 07:00 97.9 F 71 16 183/78 95 02/24/21 05:00 98.0 F 67 16 170/69 97 02/24/21 04:49 98.0 F 67 18 169/91 98 02/24/21 01:00 65 18 198/77 97 02/23/21 23:10 69 18 171/85 98 02/23/21 17:26 80 18 172/70 98 Intake and Output 02/24/21 02/24/21 02/24/21 06:59 14:59 22:59 Intake Total 0 0 Balance 0 0 Intake: Oral 0 0 Other: Voiding Method Toilet Weight 61.235 kg GENERAL EXAM: Alert, very pleasant, 65-year-old white female on room air with a pulse ox of 95-96% comfortable in no apparent distress. HEAD: Normocephalic/atraumatic. EYES: Normal reaction of pupils, equal size. Conjunctiva pink, sclera white. NOSE: Clear with pink turbinates. THROAT: No erythema or exudates. NECK: No masses, no JVD, no thyroid enlargement, no adenopathy. CHEST: No chest wall deformity. Symmetrical expansion. LUNGS: Equal air entry with no crackles, wheeze, rhonchi or dullness. CVS: Regular rate and rhythm, normal S1 and S2, no gallops, no murmurs, no rubs ABDOMEN: Soft, nontender. No hepatosplenomegaly, normal bowel sounds, no guarding or rigidity. EXTREMITIES: No clubbing, no edema, no cyanosis, 2+ pulses and upper and lower extremities. MUSCULOSKELETAL: Muscle strength and tone normal. SPINE: No scoliosis or deformity SKIN: No rashes CENTRAL NERVOUS SYSTEM: Alert and oriented -3. No focal deficits, tone is normal in all 4 extremities. PSYCHIATRIC: Alert and oriented -3. Appropriate affect. Intact judgment and insight. Results - Laboratory Findings CBC and BMP: 02/23/21 11:59 02/23/21 11:59 PT/INR, D-dimer PT 10.8 sec (9.0-12.0) 02/24/21 14:10 INR 1.0 (<1.2) 02/24/21 14:10 D-Dimer 0.67 mg/L FEU (<0.60) H 02/23/21 11:59 Abnormal lab findings: Abnormal Labs 02/23/21 02/23/21 02/23/21 11:59 11:59 23:36 D-Dimer 0.67 H BUN 18 H Glucose 230 H POC Glucose (mg/dL) 165 H Alkaline Phosphatase 233 H Urine Protein Urine Glucose (UA) Urine Nitrite Ur Leukocyte Esterase Urine WBC Urine Mucus 02/24/21 02/24/21 02/24/21 07:06 07:18 11:51 D-Dimer BUN Glucose POC Glucose (mg/dL) 172 H 128 H Alkaline Phosphatase Urine Protein Trace H Urine Glucose (UA) 4+ H Urine Nitrite Positive H Ur Leukocyte Esterase Moderate H Urine WBC 32 H Urine Mucus Rare H - Diagnostic Findings Chest x-ray: report reviewed, image reviewed CT scan - chest: report reviewed, image reviewed Assessment and Plan Plan: Assessment: #1. Chest pain and dyspnea related to pulmonary embolism, patient had a mildly elevated d-dimer, and CTA chest showed small filling defect in the left upper lobe #2. Family history of thromboembolic disease, with a shows mother and uncles on both sides of her parents have an history of blood clots #3. Recent hospitalization for chest pain, from 02/12/2021 through 02/14/2021, patient underwent cardiac evaluation, dobutamine stress echo was negative for ischemic changes #4. Recent extended car travel #5. Hypertension #6. Dyslipidemia #7. Diabetes mellitus #8. Osteoarthritis #9. Previous history of TIAs #10. Questionable history of atrial fibrillation, patient is sinus mechanism rate now, not on any chronic anticoagulation #11. Previous history of bariatric surgery #12. Questionable history of seizures, and COPD #13. Previous history of ovarian cancer Plan: CTA chest reviewed Patient has a small PE in the left upper lobe Right lower extremity Doppler seems to have a possible chronic DVT Patient has strong family history of blood clots Echocardiogram reviewed, no evidence of RV strain, hemodynamically stable, not requiring any supplemental oxygen Patient can be switched to oral anticoagulation starting tomorrow If remains stable she can considered for discharge home tomorrow I performed a history & physical examination of the patient and discussed their management with my nurse practitioner, Melissa Shell. I reviewed the nurse practitioner's note and agree with the documented findings and plan of care. Lung sounds are positive for diminished breath sounds. The findings and the impression was discussed with the patient. I attest to the documentation by the nurse practitioner. Time with Patient: Greater than 30
--- NOTE | 2021-02-24 17:24 | P.HPIM ---
History of Present Illness H&P Date: 02/24/21 Chief Complaint: Chest pain This is 65-year-old female with past medical history of diabetes mellitus, hypertension, CHF, COPD, seizure disorder, obstructive sleep apnea and multiple other medical issues presented to the ER with complaints of nonradiating midsternal sharp chest pain accompanied by shortness of breath, worsened with deep inspiration, while sitting in her chair. Patient recently completed a road trip to [place]. Mildly elevated d-dimer. CTA ordered. Systolic blood pressure on admission 198/77, heart rate 65, maintaining O2 sats in the high 90s on room air. 2 weeks prior patient presented with similar presentation, completed a dobutamine stress echo reporting negative for stress-induced cardiac ischemia. EKG reported sinus rhythm with left axis deviation and nonspecific abnormality, troponins negative 3 ,chest x-ray reporting no acute cardio pulmonary process.Patient also presented with left great toe infection. Cardiology consulted. Foot x-ray reporting no acute fracture/dislocation evident of the left foot a suspicious bony distraction small inferior calcaneal spur, 1-2 mm punctate foreign body just below the skin surface posterior inferior to the calcaneal margin. Levaquin initiated. Past Medical History Past Medical History: Atrial Fibrillation, Asthma, Cancer, Chest Pain / Angina, Heart Failure, COPD, Diabetes Mellitus, Fibromyalgia, GERD/Reflux, Hyperlipidemia, Hypertension, Osteoarthritis (OA), Pneumonia, Rheumatoid Arthritis (RA), Seizure Disorder, Sleep Apnea/CPAP/BIPAP Additional Past Medical History / Comment(s): mult TIA-no effects, migraines, irregular heartbeat, varicose veins, no cpap used, oxygen PRN for migraines, hx ulcer, IBS, gout, UTI's, ovarian cancer, diverticulitis History of Any Multi-Drug Resistant Organisms: None Reported Past Surgical History: Appendectomy, Bariatric Surgery, Cholecystectomy, Hernia Repair, Hysterectomy, Joint Replacement, Orthopedic Surgery Additional Past Surgical History / Comment(s): rt hip replacement, rt shoulder rotator Past Anesthesia/Blood Transfusion Reactions: Previous Problems w/ Anesthesia Additional Past Anesthesia/Blood Transfusion Reaction / Comment(s): spray used to numb throat-had anaphylaxis(does not know name). slow to wake up Past Psychological History: Anxiety, Depression, PTSD Additional Psychological History / Comment(s): . Smoking Status: Never smoker Past Alcohol Use History: None Reported Past Drug Use History: None Reported - Past Family History Father Family Medical History: Cancer Additional Family Medical History / Comment(s): . Mother Family Medical History: Coronary Artery Disease (CAD), Dementia, Diabetes Mellitus, Thyroid Disorder Additional Family Medical History / Comment(s): diverticulitis, Sister(s) Family Medical History: Cancer Medications and Allergies Home Medications Medication Instructions Recorded Confirmed Type Insulin Glargine [Lantus] 30 unit SQ HS 05/14/19 02/23/21 History INSULIN ASPART (NovoLOG) [NovoLOG 15 unit SQ AC-TID 10/06/19 02/23/21 History (formulary)] Atorvastatin [Lipitor] 20 mg PO HS 02/12/21 02/23/21 History Cranberry Fruit Concentrate [Azo 250 mg PO HS 02/12/21 02/23/21 History Cranberry] lisinopriL [Zestril] 10 mg PO DAILY tab 02/14/21 02/23/21 Rx Allergies Allergy/AdvReac Type Severity Reaction Status Date / Time ampicillin Allergy Rash/Hives Verified 02/23/21 12:34 codeine Allergy Rash/Hives Verified 02/23/21 12:34 erythromycin base Allergy Rash/Hives Verified 02/23/21 12:34 indomethacin Allergy Per [facility] Verified 02/23/21 12:34 lidocaine Allergy Per [facility] Verified 02/23/21 12:34 lorazepam [From Ativan] Allergy Rash/Hives Verified 02/23/21 12:34 Penicillins Allergy Rash/Hives Verified 02/23/21 12:34 Sulfa (Sulfonamide Allergy Rash/Hives Verified 02/23/21 12:34 Antibiotics) Physical Exam Vitals: Vital Signs Temp Pulse Pulse Resp BP BP Pulse Ox 02/24/21 07:00 97.9 F 71 16 183/78 95 02/24/21 05:00 98.0 F 67 16 170/69 97 02/24/21 04:49 98.0 F 67 18 169/91 98 02/24/21 01:00 65 18 198/77 97 02/23/21 23:10 69 18 171/85 98 02/23/21 17:26 80 18 172/70 98 02/23/21 12:38 20 02/23/21 11:17 98.4 F 68 18 195/77 98 Intake and Output 02/23/21 02/24/21 02/24/21 22:59 06:59 14:59 Intake Total 0 0 Balance 0 0 Intake: Oral 0 0 Other: Voiding Method Toilet Weight 61.235 kg - Exam PHYSICAL EXAMINATION: GENERAL: The patient is alert and oriented x3, not in any acute distress. Well developed, well nourished. HEENT: Pupils are round and equally reacting to light. EOMI. No scleral icterus. No conjunctival pallor. Normocephalic, atraumatic. No pharyngeal erythema. No thyromegaly. CARDIOVASCULAR: S1 and S2 present. No murmurs, rubs, or gallops. PULMONARY: Chest is clear to auscultation, no wheezing or crackles. ABDOMEN: Soft, nontender, nondistended, normoactive bowel sounds. No palpable organomegaly. MUSCULOSKELETAL: No joint swelling or deformity. EXTREMITIES: No cyanosis, clubbing, or pedal edema. NEUROLOGICAL: Gross neurological examination did not reveal any focal deficits. SKIN: Warm and dry, No rashes. Left great toe paronychia. Results CBC & Chem 7: 02/23/21 11:59 02/23/21 11:59 Labs: Abnormal Lab Results - Last 24 Hours (Table) 02/23/21 02/23/21 02/23/21 Range/Units 11:59 11:59 23:36 D-Dimer 0.67 H (<0.60) mg/L FEU BUN 18 H (7-17) mg/dL Glucose 230 H (74-99) mg/dL POC Glucose (mg/dL) 165 H (75-99) mg/dL Alkaline Phosphatase 233 H (38-126) U/L Urine Protein (Negative) Urine Glucose (UA) (Negative) Urine Nitrite (Negative) Ur Leukocyte Esterase (Negative) Urine WBC (0-5) /hpf Urine Mucus (None) /hpf 02/24/21 02/24/21 Range/Units 07:06 07:18 D-Dimer (<0.60) mg/L FEU BUN (7-17) mg/dL Glucose (74-99) mg/dL POC Glucose (mg/dL) 172 H (75-99) mg/dL Alkaline Phosphatase (38-126) U/L Urine Protein Trace H (Negative) Urine Glucose (UA) 4+ H (Negative) Urine Nitrite Positive H (Negative) Ur Leukocyte Esterase Moderate H (Negative) Urine WBC 32 H (0-5) /hpf Urine Mucus Rare H (None) /hpf Thrombosis Risk Factor Assmnt - Choose All That Apply Each Factor Represents 1 point: Abnormal pulmonary function (COPD), Obesity (BMI >25) Each Risk Factor Represents 2 Points: Age 61-74 years Thrombosis Risk Factor Assessment Total Risk Factor Score: 4 Thrombosis Risk Factor Assessment Level: Moderate Risk Assessment and Plan Assessment: -Chest pain, pleuritic.Acute small left upper lobe PE reported per CTA, in a patient who recently completed a road trip to [place] and reports family history of blood clot . -Recent negative dobutamine stress echo january 2021 -Left great toe paronychia, possibly acute. x-ray reporting 1-2 mm punctate foreign body just below the skin surface posterior inferior to the calcaneal margin. -Diabetes mellitus -Hypertension, uncontrolled -Hyperlipidemia -Coronary artery disease -History of atrial fibrillation, not on anticoagulation -Depression -Seizure disorder -Anxiety -Depression -Obstructive sleep apnea, does not use CPAP at home -IBS -History of TIA -History of ovarian CA Plan: Continue on current medication regime ,monitoring and symptomatic treatment. Echo pending. Evaluated by cardiology with recommendations as and appreciated. RICH inhibitor increased. CTA reporting left upper lobe PE, Doppler of lower extremities ordered. Heparin drip initiated for anticoagulation. Pulmonary consulted. Dr. Day to evaluate left foot/left great toe. The impression and plan of care has been dictated as directed. : I performed a history and examination of this patient, discussed the same with the dictator. I agree with the dictator's note ,documented as a scribe. Any additional findings or plans will be noted.
[2021-02-24 17:29] LABS: Glucose,Whole Blood 156 mg/dL (75-99)
[2021-02-24 20:09] LABS: Glucose,Whole Blood 157 mg/dL (75-99)
[2021-02-24] MEDS ORDERED: ATORVASTATIN 20 MG TAB PO SCH (21:00)
[2021-02-24] MEDS ORDERED: NON FORMULARY DRUG (Cranberry Fruit Concentrate [Azo Cranberry] 250 MG Tab.Chew) PO SCH (21:00)
[2021-02-24] MEDS ORDERED: INSULIN DETEMIR (LEVEMIR) 100 UNIT/ML SYR SQ SCH (21:00)
[2021-02-25 07:26] LABS: Glucose,Whole Blood 54 mg/dL (75-99)
[2021-02-25] MEDS ORDERED: PANTOPRAZOLE 40 MG TABLET PO SCH (07:30)
[2021-02-25] MEDS: INSULIN ASPART (NovoLOG) 100 UNIT/ML VIAL SQ SCH ×2 (07:33→12:52)
[2021-02-25 07:39] LABS: Glucose,Whole Blood 76 mg/dL (75-99)
[2021-02-25 07:55] VITALS: RESP 17
--- NOTE | 2021-02-25 08:31 | CONS ---
DATE OF CONSULTATION: 02/24/2021 This is a 65-year-old pleasant female consulted with history of right big toe infection. The patient has this for the past few days. The patient also came with history of shortness of breath and chest pain. 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 The patient also has some mild abdominal pain. The patient had multiple surgeries in the past including colonic resection and gastric sleeve surgery done in the past. PAST MEDICAL HISTORY: Includes history of atrial fibrillation, history of COPD, congestive heart failure, diabetes mellitus, hypertension, rheumatoid arthritis, and seizure disorder and sleep apnea. EXAMINATION: Vascular exam brachial radial and femoral pulses are present. The patient dorsal pedis is palpable. Right big toe has some cellulitis involving the big toe at the right big toe nail bed. Also little bit tenderness noted. No discharge noted. At this point, I see no evidence of any abscess or any devitalized tissue. PLAN: Continue with the IV antibiotic. If this does not improve, then she may be need to remove the nail of the right big toe. In the meantime, patient on IV antibiotic. This should be continued. Follow with you. Thank you for this consultation. MMODL / IJN: [id number] / BRAULIO
[2021-02-25] MEDS ORDERED: lisinopriL 10 MG TAB PO SCH ×2 (09:00)
[2021-02-25] MEDS ORDERED: ASPIRIN 81 MG PO SCH (09:00)
[2021-02-25] MEDS ORDERED: APIXABAN 5 MG TAB PO SCH ×2 (09:15→12:00)
[2021-02-25 10:36] LABS: Basophils # (A) 0.03 X 10*3/uL (0.00-0.10); Basophils % (A) 0.5 %; Eosinophils # (A) 0.25 X 10*3/uL (0.04-0.35); Eosinophils % (A) 4.1 %; HCT 43.4 % (37.2-46.3); HGB 13.8 g/dL (12.0-15.0); Lymphocytes # (A) 2.18 X 10*3/uL (0.90-5.00); Lymphocytes % (A) 35.7 %; MCH 29.3 pg (27.0-32.0); MCHC 31.8 g/dL (32.0-37.0); MCV 92.1 fL (80.0-97.0); Monocytes % (A) 8.2 %; Neutrophils # (A) 3.13 X 10*3/uL (1.80-7.70); Neutrophils % (A) 51.3 %; Platelet Count 264 X 10*3/uL (140-440); RBC 4.71 X 10*6/uL (4.10-5.20)
--- NOTE | 2021-02-25 11:31 | P.PN ---
Subjective Progress Note Date: 02/25/21 Principal diagnosis: Dyspnea, chest pain 55-year-old white female patient of Dr. Luciano who came into the emergency department on 02 23 2021 for evaluation of shortness of breath, and chest tightness in the left upper chest. Her symptoms have been present for the past one week. She was recently hospitalized about a week ago from 02/12/2021 through 02/14/2021 when she came in with chest pain that was sharp in nature, precordial, unrelated to exertion. There were no clear-cut relieving or exacerbating factors. She had 3 sets of negative cardiac troponins. She was tested for COVID-19 and was negative, patient underwent dobutamine stress echo which found no echocardiographic evidence for ischemia, patient was discharged home on 02/14/2021. Following her discharge her symptoms persisted and she came back to the hospital for reevaluation. Chest x-ray showed no acute c ardiopulmonary process. EKG showed normal sinus rhythm. Patient had 3 sets of cardiac troponins that were less than 0.012. BNP was 118, CBC was unremarkable, electrolytes and renal profile were unremarkable. Patient had mildly elevated d-dimer of 0.67. CTA chest was completed showing incompletely obstructing filling defect within the left upper lobe pulmonary artery data bone with pulmonary embolism. No evidence of adenopathy, mediastinal or hilar. No suspicious consolidations. Echocardiogram showed EF greater than 55%, right ventricle is normal in size, no evidence of aortic sclerosis or regurgitation, mild MR and mild TR, with right-sided pressure of less than 35 mmHg. Patient was started on heparin infusion. Doppler of lower extremities revealed possible chronic changes in the right femoral vein, which was a small caliber vein with thready flow, and left leg was negative for DVT. Of note patient had a strong familial history of blood clots in the family, with multiple uncles on both sides, and her mother having a history of blood clots. In addition patient recently got back from [place], and this was a few weeks ago, patient did drive herself there and back. During our examination patient is awake and alert, appears to be in no acute distress, she is on room air, pulse ox is 95%, hemodynamically she is stable, breathing is nonlabored. On 02/26/2021 patient seen in follow-up on medical surgical floor, she is resting comfortably in bed, in no acute distress, breathing comfortably, no complaints of chest pain, no dyspnea, lung sounds are clear, she is on room air, pulse ox is 95-97%, afebrile, blood pressure stable, breathing is nonlabored, no complaints of chest discomfort or hemoptysis, she has been transitioned to oral Eliquis, discharge is pending for today Objective - Vital Signs Vital signs: Vital Signs Temp 97.6 F 02/25/21 07:00 Pulse 57 L 02/25/21 07:00 Resp 17 02/25/21 08:00 BP 166/75 02/25/21 07:00 Pulse Ox 97 02/25/21 07:00 Intake & Output 02/24/21 02/25/21 02/25/21 18:59 06:59 18:59 Intake Total 0 78.624 79.45 Balance 0 78.624 79.45 Intake: Intake, IV Titration 78.624 79.45 Amount Heparin Sod,Pork in 0.45% 78.624 79.45 NaCl 25,000 unit In 0.45 % NaCl 1 250ml.bag @ 18 UNITS/KG/HR 11.022 mls/hr IV .[id number] [facility] Rx#: [id number] Oral 0 Other: Voiding Method Toilet Toilet Toilet # Voids 2 1 # Bowel Movements 1 - Exam GENERAL EXAM: Alert, very pleasant, 65-year-old white female on room air with a pulse ox of 95-96% comfortable in no apparent distress. HEAD: Normocephalic/atraumatic. EYES: Normal reaction of pupils, equal size. Conjunctiva pink, sclera white. NOSE: Clear with pink turbinates. THROAT: No erythema or exudates. NECK: No masses, no JVD, no thyroid enlargement, no adenopathy. CHEST: No chest wall deformity. Symmetrical expansion. LUNGS: Equal air entry with no crackles, wheeze, rhonchi or dullness. CVS: Regular rate and rhythm, normal S1 and S2, no gallops, no murmurs, no rubs ABDOMEN: Soft, nontender. No hepatosplenomegaly, normal bowel sounds, no guarding or rigidity. EXTREMITIES: No clubbing, no edema, no cyanosis, 2+ pulses and upper and lower extremities. MUSCULOSKELETAL: Muscle strength and tone normal. SPINE: No scoliosis or deformity SKIN: No rashes CENTRAL NERVOUS SYSTEM: Alert and oriented -3. No focal deficits, tone is normal in all 4 extremities. PSYCHIATRIC: Alert and oriented -3. Appropriate affect. Intact judgment and insight. - Labs CBC & Chem 7: 02/25/21 05:27 02/23/21 11:59 Labs: Abnormal Lab Results - Last 24 Hours (Table) 02/24/21 02/24/21 02/24/21 Range/Units 11:51 17:27 20:07 MCHC (32.0-37.0) g/dL APTT (22.0-30.0) sec POC Glucose (mg/dL) 128 H 156 H 157 H (75-99) mg/dL 02/24/21 02/25/21 02/25/21 Range/Units 20:39 05:27 07:22 MCHC 31.8 L (32.0-37.0) g/dL APTT 92.0 H (22.0-30.0) sec POC Glucose (mg/dL) 54 L (75-99) mg/dL Microbiology - Last 24 Hours (Table) 02/23/21 14:49 Blood Culture - Preliminary Blood No Growth after 24 hours 02/24/21 07:18 Urine Culture - Preliminary Urine,Voided Assessment and Plan Plan: Assessment: #1. Chest pain and dyspnea related to pulmonary embolism, patient had a mildly elevated d-dimer, and CTA chest showed small filling defect in the left upper lobe #2. Family history of thromboembolic disease, with a mother and uncles on both sides of her parents have an history of blood clots #3. Recent hospitalization for chest pain, from 02/12/2021 through 02/14/2021, patient underwent cardiac evaluation, dobutamine stress echo was negative for ischemic changes #4. Recent extended car travel #5. Hypertension #6. Dyslipidemia #7. Diabetes mellitus #8. Osteoarthritis #9. Previous history of TIAs #10. Questionable history of atrial fibrillation, patient is sinus mechanism rate now, not on any chronic anticoagulation #11. Previous history of bariatric surgery #12. Questionable history of seizures, and COPD #13. Previous history of ovarian cancer Plan: Vital signs have been stable, no worsening dyspnea or hypoxia No complaints of chest pain No events overnight Patient has been transitioned to oral Eliquis Stable for discharge home today, outpatient follow-up with Dr. Fuentes in the office in 2-3 weeks We'll need follow-up CTA chest scan in 6 months I performed a history & physical examination of the patient and discussed their management with my nurse practitioner, Melissa Shell. I reviewed the nurse practitioner's note and agree with the documented findings and plan of care. Lung sounds are positive for diminished breath sounds. The findings and the impression was discussed with the patient. I attest to the documentation by the nurse practitioner. Time with Patient: Less than 30
[2021-02-25 12:02] LABS: Glucose,Whole Blood 156 mg/dL (75-99)
[2021-02-25] MEDS ORDERED: lisinopriL 10 MG TAB PO STA (12:56)
--- NOTE | 2021-02-25 14:56 | P.DS ---
Providers Date of admission: 02/23/21 14:06 Expected date of discharge: 02/25/21 Attending physician: Kevyn Luciano Consults: 02/23/21 14:06 Consult Physician Urgent Consulting Provider: Kamran Keane Consult Reason/Comments: cp, exertional dyspnea Do you want consulting provider notified?: Yes 02/24/21 08:50 Consult Physician Routine Consulting Provider: Ward Day Consult Reason/Comments: Left great toe infection,DM Do you want consulting provider notified?: Yes 02/24/21 13:58 Consult Physician Routine Consulting Provider: Jaci Jauregui Consult Reason/Comments: PE Do you want consulting provider notified?: Yes Primary care physician: Kevyn Luciano [facility] Course: Final Diagnoses: -Chest pain, pleuritic.Acute small left upper lobe PE reported per CTA, in a patient who recently completed a road trip to [place] and reports family history of blood clot . Patient will need a follow-up CTA in 6 months. -Recent negative dobutamine stress echo january 2021 -Left great toe paronychia, possibly acute. x-ray reporting 1-2 mm punctate foreign body just below the skin surface posterior inferior to the calcaneal margin. -Diabetes mellitus -Hypertension, uncontrolled -Hyperlipidemia -Coronary artery disease -History of atrial fibrillation, not on anticoagulation-to be verified in clinic at PCPs office. -Depression -Seizure disorder -Anxiety -Depression -Obstructive sleep apnea, does not use CPAP at home -IBS -History of TIA -History of ovarian CA Hospital course:This is 65-year-old female with past medical history of diabetes mellitus, hypertension, CHF, COPD, seizure disorder, obstructive sleep apnea and multiple other medical issues presented to the ER with complaints of nonradiating midsternal sharp chest pain accompanied by shortness of breath, wor sened with deep inspiration, while sitting in her chair. Patient recently completed a road trip to [place]. Mildly elevated d-dimer. CTA ordered. Systolic blood pressure on admission 198/77, heart rate 65, maintaining O2 sats in the high 90s on room air. 2 weeks prior patient presented with similar presentation, completed a dobutamine stress echo reporting negative for stress-induced cardiac ischemia. EKG reported sinus rhythm with left axis deviation and nonspecific abnormality, troponins negative 3 ,chest x-ray reporting no acute cardio pulmonary process.Patient also presented with left great toe infection. Cardiology consulted. Foot x-ray reporting no acute fracture/dislocation evident of the left foot a suspicious bony distraction small inferior calcaneal spur, 1- 2 mm punctate foreign body just below the skin surface posterior inferior to the calcaneal margin. Levaquin initiated. RICH inhibitor increased. CTA reporting left upper lobe PE, Doppler of lower extremities ordered. Venous Doppler of lower extremities reported some chronic thrombus within the right lower extremity deep venous system no obstruction identified, left lower extremity reported negative for DVT. Heparin drip initiated for anticoagulation, transitioned to eliquis. Denies chest pain, palpitations or shortness of breath. Denies hemoptysis. Evaluated and cleared by pulmonary, cardiology and vascular surgery for discharge. Patient to follow- up with vascular surgery on Sunday for further treatment of left great toe. The impression and plan of care has been dictated as directed. : I performed a history and examination of this patient, discussed the same with the dictator. I agree with the dictator's note ,documented as a scribe. Any additional findings or plans will be noted. Patient Condition at Discharge: Stable Plan - Discharge Summary Discharge Rx Participant: No New Discharge Prescriptions: New Apixaban [Eliquis Starter Pack (for VTE)] 0 mg PO DIRECTED 30 Days #1 pack Aspirin 81 mg PO DAILY chew Pantoprazole [Protonix] 40 mg PO AC-BRKFST #30 tablet. Lisinopril [Zestril] 20 mg PO BID #120 tab Levofloxacin [Levaquin] 750 mg PO DAILY@1600 #5 tab Continue Insulin Glargine [Lantus] 30 unit SQ HS Atorvastatin [Lipitor] 20 mg PO HS Cranberry Fruit Concentrate [Azo Cranberry] 250 mg PO HS Changed INSULIN ASPART (NovoLOG) [NovoLOG (formulary)] 5 unit SQ AC-TID #0 Discontinued lisinopriL [Zestril] 10 mg PO DAILY tab Discharge Medication List Insulin Glargine [Lantus] 30 unit SQ HS 05/14/19 [History] Atorvastatin [Lipitor] 20 mg PO HS 02/12/21 [History] Cranberry Fruit Concentrate [Azo Cranberry] 250 mg PO HS 02/12/21 [History] Apixaban [Eliquis Starter Pack (for VTE)] 0 mg PO DIRECTED 30 Days #1 pack 06/03/21 [Rx] Aspirin 81 mg PO DAILY chew 02/25/21 [Rx] INSULIN ASPART (NovoLOG) [NovoLOG (formulary)] 5 unit SQ AC-TID #0 02/25/21 [Rx] Levofloxacin [Levaquin] 750 mg PO DAILY@1600 #5 tab 02/25/21 [Rx] Lisinopril [Zestril] 20 mg PO BID #120 tab 02/25/21 [Rx] Pantoprazole [Protonix] 40 mg PO AC-BRKFST #30 tablet. 02/25/21 [Rx] Follow up Appointment(s)/Referral(s): Jaci Jauregui MD [STAFF PHYSICIAN] - 03/22/21 9:15 am Kevyn Luciano DO [Primary Care Provider] - 03/03/21 3:00 pm ([place] [phone] Figueroa MADYSON ) Leandro Londono MD [STAFF PHYSICIAN] - 03/15/21 2:15 pm Ward Day MD [STAFF PHYSICIAN] - 02/28/21 10:30 am Ambulatory/Diagnostic Orders: Complete Blood Count w/diff [LAB.AMB] Time Frame: 3 Days, Location: None Selected Patient Instructions/Handouts: Pulmonary Embolism (DC) Activity/Diet/Wound Care/Special Instructions: Wear a loose fitting slipper. Take off to shower Accu-Cheks before meals and at bedtime, maintain log and take to follow-up visit with PCP for further recommendations
[2021-02-25 14:57] VITALS: BP 160/85; PULSE 58; TEMP 98.3
[2021-02-25] MEDS ORDERED: LEVOFLOXACIN 750 MG TAB PO SCH (16:00)
== END 2021-02-25 15:52 ==
LOC: EC 10:59 → 6NMEDSUR 14:06
PROVIDERS: ADMIT Family Medicine; ATTEND Family Medicine
DX: I26.99 Other pulmonary embolism without acute cor pulmonale (principal); E11.628 Type 2 diabetes mellitus with other skin complications; L03.032 Cellulitis of left toe; I82.501 Chronic embolism and thrombosis of unspecified deep veins of right lower extremity; I11.0 Hypertensive heart disease with heart failure; I50.9 Heart failure, unspecified; I48.91 Unspecified atrial fibrillation; E78.5 Hyperlipidemia, unspecified; J44.9 Chronic obstructive pulmonary disease, unspecified; G47.33 Obstructive sleep apnea (adult) (pediatric); I25.10 Atherosclerotic heart disease of native coronary artery without angina pectoris; M77.32 Calcaneal spur, left foot; S90.852A Superficial foreign body, left foot, initial encounter; M79.7 Fibromyalgia; M06.9 Rheumatoid arthritis, unspecified; M19.90 Unspecified osteoarthritis, unspecified site; K21.9 Gastro-esophageal reflux disease without esophagitis; G40.909 Epilepsy, unspecified, not intractable, without status epilepticus; G43.909 Migraine, unspecified, not intractable, without status migrainosus; I83.90 Asymptomatic varicose veins of unspecified lower extremity; M10.9 Gout, unspecified; K58.9 Irritable bowel syndrome, unspecified; F32.9 Major depressive disorder, single episode, unspecified; F43.10 Post-traumatic stress disorder, unspecified; F41.9 Anxiety disorder, unspecified; M47.814 Spondylosis without myelopathy or radiculopathy, thoracic region; I08.1 Rheumatic disorders of both mitral and tricuspid valves; E66.9 Obesity, unspecified; Z68.26 Body mass index [BMI] 26.0-26.9, adult; R10.30 Lower abdominal pain, unspecified; Z20.822 Contact with and (suspected) exposure to COVID-19; Z79.4 Long term (current) use of insulin; Z79.899 Other long term (current) drug therapy; Z88.6 Allergy status to analgesic agent; Z88.4 Allergy status to anesthetic agent; Z88.1 Allergy status to other antibiotic agents; Z88.0 Allergy status to penicillin; Z88.2 Allergy status to sulfonamides; Z88.5 Allergy status to narcotic agent; Z88.8 Allergy status to other drugs, medicaments and biological substances; Z87.01 Personal history of pneumonia (recurrent); Z86.73 Personal history of transient ischemic attack (TIA), and cerebral infarction without residual deficits; Z87.19 Personal history of other diseases of the digestive system; Z85.43 Personal history of malignant neoplasm of ovary; Z87.440 Personal history of urinary (tract) infections; Z90.49 Acquired absence of other specified parts of digestive tract; Z98.84 Bariatric surgery status; Z90.710 Acquired absence of both cervix and uterus; Z96.641 Presence of right artificial hip joint; Z98.890 Other specified postprocedural states; Z82.49 Family history of ischemic heart disease and other diseases of the circulatory system; Z83.3 Family history of diabetes mellitus; Z83.49 Family history of other endocrine, nutritional and metabolic diseases; Z82.0 Family history of epilepsy and other diseases of the nervous system; Z83.79 Family history of other diseases of the digestive system; Z80.9 Family history of malignant neoplasm, unspecified
CPT/HCPCS: 96376; 96366 ×2; 96367; 96375 ×2; 96368; 93005 ×2; 96365; 99285; 36415; 93306; 85379; 83880; 80061; 80053; 83605; 83690; 83735; 84484; 85025 ×2; 85610 ×2; 85730 ×3; 82272; 81001; 87040; 87086; 87635; 73630; 71046; 93970; 71275; G0378 ×3; J1644 ×3; J1956 ×2; C9113; Q9967

== ENCOUNTER 2021-02-26 18:50 | Emergency (ER) | payer MEDICARE ==
[2021-02-26 20:29] VITALS: TEMP 98.4
--- NOTE | 2021-02-26 21:03 | CT ---
EXAMINATION TYPE: CT brain wo con DATE OF EXAM: 02/26/2021 COMPARISON: 10/29/2019 HISTORY: Headache, hypertension, treated for PE on blood thinners. CT DLP: 1043.4 mGycm Automated exposure control for dose reduction was used. Ventricles have normal size. There is no mass effect nor midline shift. There is no sign of intracran ial hemorrhage. The calvarium is intact. Skull base is intact. There is normal aeration of the mastoi d sinuses. There is mild hyperostosis frontalis. IMPRESSION: Negative CT scan of the brain. No change.
--- NOTE | 2021-02-26 21:27 | ED ---
Headache HPI - General Chief Complaint: Headache Stated Complaint: headache, being treated for PE Time Seen by Provider: 02/26/21 20:45 Source: patient, family, RN notes reviewed Mode of arrival: ambulatory Limitations: no limitations - History of Present Illness Initial Comments: 65-year-old female, alert and oriented 4 presents to the emergency room with her sister complaining of a headache for the past 4 hours. Patient describes the headache as throbbing. Patient states that she took Motrin 2 hours ago and it starting to get better, now rates it as 6 out of 10. Patient was just discharged from the hospital yesterday the right leg DVT and pulmonary embolism. Patient discharged on eloquis. Patient is also being treated for a left great toe paronychia and is on Levaquin. Patient has a history of atrial fibrillation, asthma, heart failure, COPD, diabetes, fibromyalgia, migraine headaches, and osteoarthritis. Patient also has left ptosis that she has had for several years. Patient states that she takes lisinopril for her high blood pressure. States that she was taking it twice a day but is now only been taking it once a day. Patient's blood pressure the emergency room was 180/79. MD Complaint: headache -: hour(s) (4) Onset Description: gradual Location: right, frontal Severity scale (1-10): 6 Quality: throbbing Consistency: constant Improves With: medication (Motrin 2 hours ago) Worsens With: none Context: occurred with exertion/activity (Doing laundry) Associated Symptoms: other (Discharged yesterday for pulmonary embolism) Treatments Prior to Arrival: Ibuprofen - Related Data Home Medications Medication Instructions Recorded Confirmed Insulin Glargine [Lantus] 30 unit SQ HS 05/14/19 02/23/21 Atorvastatin [Lipitor] 20 mg PO HS 02/12/21 02/23/21 Cranberry Fruit Concentrate [Azo 250 mg PO HS 02/12/21 02/23/21 Cranberry] Previous Rx's Medication Instructions Recorded Apixaban [Eliquis Starter Pack 0 mg PO DIRECTED 30 Days #1 pack 02/24/21 (for VTE)] Aspirin 81 mg PO DAILY chew 02/25/21 INSULIN ASPART (NovoLOG) [NovoLOG 5 unit SQ AC-TID #0 02/25/21 (formulary)] Levofloxacin [Levaquin] 750 mg PO DAILY@1600 #5 tab 02/25/21 Lisinopril [Zestril] 20 mg PO BID #120 tab 02/25/21 Pantoprazole [Protonix] 40 mg PO LIYA-BRKFST #30 tablet. 02/25/21 Allergies Allergy/AdvReac Type Severity Reaction Status Date / Time ampicillin Allergy Rash/Hives Verified 02/26/21 20:29 codeine Allergy Rash/Hives Verified 02/26/21 20:29 erythromycin base Allergy Rash/Hives Verified 02/26/21 20:29 indomethacin Allergy Per [facility] Verified 02/26/21 20:29 lidocaine Allergy Per [facility] Verified 02/26/21 20:29 lorazepam [From Ativan] Allergy Rash/Hives Verified 02/26/21 20:29 Penicillins Allergy Rash/Hives Verified 02/26/21 20:29 Sulfa (Sulfonamide Allergy Rash/Hives Verified 02/26/21 20:29 Antibiotics) Review of Systems ROS Statement: Those systems with pertinent positive or pertinent negative responses have been documented in the HPI. ROS Other: All systems not noted in ROS Statement are negative. Past Medical History Past Medical History: Atrial Fibrillation, Asthma, Cancer, Chest Pain / Angina, Heart Failure, COPD, Diabetes Mellitus, Fibromyalgia, GERD/Reflux, Hyperlipidemia, Hypertension, Osteoarthritis (OA), Pneumonia, Rheumatoid Arthritis (RA), Seizure Disorder, Sleep Apnea/CPAP/BIPAP Additional Past Medical History / Comment(s): mult TIA-no effects, migraines, irregular heartbeat, varicose veins, no cpap used, oxygen PRN for migraines, hx ulcer, IBS, gout, UTI's, ovarian cancer, diverticulitis History of Any Multi-Drug Resistant Organisms: None Reported Past Surgical History: Appendectomy, Bariatric Surgery, Cholecystectomy, Hernia Repair, Hysterectomy, Joint Replacement, Orthopedic Surgery Additional Past Surgical History / Comment(s): rt hip replacement, rt shoulder rotator Past Anesthesia/Blood Transfusion Reactions: Previous Problems w/ Anesthesia Additional Past Anesthesia/Blood Transfusion Reaction / Comment(s): spray used to numb throat-had anaphylaxis(does not know name). slow to wake up Past Psychological History: Anxiety, Depression, PTSD Smoking Status: Never smoker Past Alcohol Use History: None Reported Past Drug Use History: None Reported - Past Family History Father Family Medical History: Cancer Additional Family Medical History / Comment(s): . Mother Family Medical History: Coronary Artery Disease (CAD), Dementia, Diabetes Mellitus, Thyroid Disorder Additional Family Medical History / Comment(s): diverticulitis, Sister(s) Family Medical History: Cancer General Exam Limitations: no limitations General appearance: alert, in no apparent distress Head exam: Present: atraumatic, normocephalic, normal inspection Eye exam: Present: PERRL, EOMI, other (Left upper eyelid ptosis chronic). Absent: scleral icterus, conjunctival injection, nystagmus Pupils: Present: normal accommodation ENT exam: Present: normal exam, normal oropharynx, mucous membranes moist Neck exam: Present: normal inspection, full ROM. Absent: tenderness, meningismus, lymphadenopathy, thyromegaly Respiratory exam: Present: normal lung sounds bilaterally. Absent: respiratory distress, wheezes, rales, rhonchi, stridor, chest wall tenderness, accessory muscle use, decreased breath sounds Cardiovascular Exam: Present: regular rate, normal rhythm, normal heart sounds. Absent: systolic murmur, diastolic murmur, rubs, gallop, clicks GI/Abdominal exam: Present: soft, normal bowel sounds. Absent: distended, tenderness, guarding, rebound, rigid Rectal exam: Present: deferred Extremities exam: Present: normal inspection, full ROM, normal capillary refill. Absent: tenderness, pedal edema, joint swelling, calf tenderness Left Foot/Toe exam: Present: full ROM, tenderness (Dressing intact left great toe). Absent: laceration, ecchymosis Neurovascular tendon exam: Absent: pulse deficit, abnormal cap refill, pallor, foot drop Back exam: Present: normal inspection, full ROM. Absent: tenderness, CVA tenderness (R), CVA tenderness (L), muscle spasm, paraspinal tenderness, vertebral tenderness Neurological exam: Present: alert, oriented X3, CN II-XII intact Psychiatric exam: Present: normal affect, normal mood Skin exam: Present: warm, dry, intact, normal color. Absent: rash, cyanosis, diaphoretic, erythema, petechiae, pallor, mottled Course Vital Signs 02/26/21 20:26 Temperature 98.4 F Pulse Rate 71 Respiratory 22 Rate Blood Pressure 188/79 O2 Sat by Pulse 99 Oximetry - Reevaluation(s) Reevaluation #1: 02/26/21 23:35 Patient states headache down to a 3 after the Tylenol. Blood pressure remains elevated 192/78, hydralazine IV given Time: 23:35 Medical Decision Making - Medical Decision Making CT the brain shows no midline shift, no intracranial bleed, no mass, there is a mild hyperostosis frontalis. There is no leukocytosis, glucose is 116, BUN 19, there is no anemia. PT/INR is 11.3 and 1.1 respectively. Patient is neurovascularly intact, no focal motor deficits. Patient denies cough or chest pain. Patient describes headache as throbbing and blood pressure is elevated upon arrival to the emergency room. patient was given an evening dose of lisinopril and hydralazine, blood pressure down to 157/94. Patient agreeable to being discharged home. Case discussed with Dr Mireles. . - Lab Data Result diagrams: 02/26/21 22:22 02/26/21 22:22 Lab Results 02/26/21 02/26/21 02/26/21 Range/Units 22:22 22:22 22:22 WBC 9.7 (3.8-10.6) k/uL RBC 4.60 (3.80-5.40) m/uL Hgb 13.0 (11.4-16.0) gm/dL Hct 41.7 (34.0-46.0) % MCV 90.7 (80.0-100.0) fL MCH 28.3 (25.0-35.0) pg MCHC 31.3 (31.0-37.0) g/dL RDW 13.1 (11.5-15.5) % Plt Count 238 (150-450) k/uL MPV 7.6 Neutrophils % 60 % Lymphocytes % 29 % Monocytes % 7 % Eosinophils % 2 % Basophils % 1 % Neutrophils # 5.8 (1.3-7.7) k/uL Lymphocytes # 2.8 (1.0-4.8) k/uL Monocytes # 0.6 (0-1.0) k/uL Eosinophils # 0.2 (0-0.7) k/uL Basophils # 0.1 (0-0.2) k/uL PT 11.3 (9.0-12.0) sec INR 1.1 (<1.2) Sodium 144 (137-145) mmol/L Potassium 3.9 (3.5-5.1) mmol/L Chloride 109 H (98-107) mmol/L Carbon Dioxide 27 (22-30) mmol/L Anion Gap 8 mmol/L BUN 19 H (7-17) mg/dL Creatinine 0.95 (0.52-1.04) mg/dL Est GFR (CKD-EPI)AfAm 73 (>60 ml/min/1.73 sqM) Est GFR (CKD-EPI)NonAf 63 (>60 ml/min/1.73 sqM) Glucose 116 H (74-99) mg/dL Calcium 9.5 (8.4-10.2) mg/dL Total Bilirubin 0.8 (0.2-1.3) mg/dL AST 24 (14-36) U/L ALT 14 (4-34) U/L Alkaline Phosphatase 164 H (38-126) U/L Total Protein 6.4 (6.3-8.2) g/dL Albumin 3.6 (3.5-5.0) g/dL Disposition Clinical Impression: Headache, Hypertension Disposition: HOME SELF-CARE Condition: Good Instructions (If sedation given, give patient instructions): Acute Headache (ED), Hypertension in the Older Adult (ED) Additional Instructions: Continue taking medications as prescribed, lisinopril twice a day, once in the morning and once in the evening. Follow-up with primary care doctor next week. Is patient prescribed a controlled substance at d/c from ED?: No Referrals: Kevyn Luciano DO [Primary Care Provider] - 1-2 days Time of Disposition: 00:03
[2021-02-26] MEDS ORDERED: SODIUM CHLORIDE 0.9% 500 ML 500 ML IV STA (21:39)
[2021-02-26] MEDS ORDERED: ACETAMINOPHEN TAB 325 MG TAB PO STA (21:42)
[2021-02-26] MEDS ORDERED: lisinopriL 20 MG TAB PO STA (22:30)
[2021-02-26 22:34] LABS: Basophils # (A) 0.1 k/uL (0-0.2); Basophils % (A) 1 %; Eosinophils # (A) 0.2 k/uL (0-0.7); Eosinophils % (A) 2 %; HCT 41.7 % (34.0-46.0); Lymphocytes # (A) 2.8 k/uL (1.0-4.8); Lymphocytes % (A) 29 %; MCH 28.3 pg (25.0-35.0); MCHC 31.3 g/dL (31.0-37.0); MCV 90.7 fL (80.0-100.0); Mean Platelet Volume 7.6; Monocytes # (A) 0.6 k/uL (0-1.0); Monocytes % (A) 7 %; Neutrophils # (A) 5.8 k/uL (1.3-7.7); Neutrophils % (A) 60 %; Platelet Count 238 k/uL (150-450); RDW 13.1 % (11.5-15.5); WBC 9.7 k/uL (3.8-10.6)
[2021-02-26 22:44] LABS: Albumin 3.6 g/dL (3.5-5.0); Calcium 9.5 mg/dL (8.4-10.2); Potassium 3.9 mmol/L (3.5-5.1); Total Bilirubin 0.8 mg/dL (0.2-1.3); Total Protein 6.4 g/dL (6.3-8.2)
[2021-02-26 22:46] LABS: INR 1.1 (<1.2); Prothrombin Time 11.3 sec (9.0-12.0)
[2021-02-26] MEDS ORDERED: hydrALAZINE HCL 20 MG/ML 1 ML VIAL IVP STA (23:34)
[2021-02-27 00:10] VITALS: BP 157/74; PULSE 68; RESP 18
== END 2021-02-27 00:15 | disposition home or self-care (01) ==
LOC: EC 18:50
DX: I11.0 Hypertensive heart disease with heart failure (principal); I50.9 Heart failure, unspecified; M85.80 Other specified disorders of bone density and structure, unspecified site; I82.401 Acute embolism and thrombosis of unspecified deep veins of right lower extremity; I26.99 Other pulmonary embolism without acute cor pulmonale; I48.91 Unspecified atrial fibrillation; J44.9 Chronic obstructive pulmonary disease, unspecified; E11.9 Type 2 diabetes mellitus without complications; M79.7 Fibromyalgia; K21.9 Gastro-esophageal reflux disease without esophagitis; E78.5 Hyperlipidemia, unspecified; M19.90 Unspecified osteoarthritis, unspecified site; G40.909 Epilepsy, unspecified, not intractable, without status epilepticus; G47.30 Sleep apnea, unspecified; Z79.01 Long term (current) use of anticoagulants; Z79.82 Long term (current) use of aspirin; Z79.4 Long term (current) use of insulin; Z88.0 Allergy status to penicillin
CPT/HCPCS: 36415; 80053; 85025; 85610; 70450; 99284; 96374; 96361; J0360

== ENCOUNTER 2021-04-29 11:27 | Emergency (ER) | payer MEDICARE, OTHER ==
--- NOTE | 2021-04-29 12:10 | ED ---
General Adult HPI - General Chief complaint: Shortness of Breath Stated complaint: SOB-sent by PCP Time Seen by Provider: 04/29/21 11:51 Source: patient, RN notes reviewed Mode of arrival: wheelchair Limitations: physical limitation - History of Present Illness Initial comments: Patient is a pleasant 66 over female presenting to the emergency Department with complaints of difficulty breathing. Onset of symptoms was past day or so. Patient does have history of pulmonary embolism diagnosed couple months ago. Patient is on Eliquis. Patient also has history of dysrhythmia. No leg pain or leg swelling. No cough. Symptoms don't feel quite like her chronic COPD. - Related Data Home Medications Medication Instructions Recorded Confirmed Insulin Glargine [Lantus] 35 unit SQ HS 05/14/19 04/29/21 Atorvastatin [Lipitor] 20 mg PO HS 02/12/21 04/29/21 Apixaban [Eliquis] 10 mg PO DAILY 04/29/21 04/29/21 Aspirin 324 mg PO DAILY 04/29/21 04/29/21 INSULIN ASPART (NovoLOG) [NovoLOG 15 unit SQ AC-TID 04/29/21 04/29/21 (formulary)] Tobramycin [Tobrex 0.3% Ophth Soln] 2 drop LEFT EYE Q8H 04/29/21 04/29/21 amLODIPine [Norvasc] 10 mg PO DAILY 04/29/21 04/29/21 calcium polycarbophiL [Fibercon] 625 mg PO DAILY 04/29/21 04/29/21 lisinopriL 20 mg PO BID 04/29/21 04/29/21 Allergies Allergy/AdvReac Type Severity Reaction Status Date / Time ampicillin Allergy Rash/Hives Verified 04/29/21 13:07 codeine Allergy Rash/Hives Verified 04/29/21 13:07 erythromycin base Allergy Rash/Hives Verified 04/29/21 13:07 indomethacin Allergy Per [facility] Verified 04/29/21 13:07 lidocaine Allergy Per [facility] Verified 04/29/21 13:07 lorazepam [From Ativan] Allergy Rash/Hives Verified 04/29/21 13:07 Penicillins Allergy Rash/Hives Verified 04/29/21 13:07 Sulfa (Sulfonamide Allergy Rash/Hives Verified 04/29/21 13:07 Antibiotics) Review of Systems ROS Statement: Those systems with pertinent positive or pertinent negative responses have been documented in the HPI. ROS Other: All systems not noted in ROS Statement are negative. Constitutional: Denies: fever Eyes: Denies: eye pain ENT: Denies: ear pain Respiratory: Reports: dyspnea. Denies: cough Cardiovascular: Denies: chest pain Endocrine: Denies: fatigue Gastrointestinal: Denies: abdominal pain Genitourinary: Denies: dysuria Musculoskeletal: Denies: back pain Skin: Denies: rash Neurological: Denies: weakness Past Medical History Past Medical History: Atrial Fibrillation, Asthma, Cancer, Chest Pain / Angina, Heart Failure, COPD, Diabetes Mellitus, Fibromyalgia, GERD/Reflux, Hyperlipidemia, Hypertension, Osteoarthritis (OA), Pneumonia, Pulmonary Embolus (PE), Rheumatoid Arthritis (RA), Seizure Disorder, Sleep Apnea/CPAP/BIPAP Additional Past Medical History / Comment(s): mult TIA-no effects, migraines, irregular heartbeat, varicose veins, no cpap used, oxygen PRN for migraines, hx ulcer, IBS, gout, UTI's, ovarian cancer, diverticulitis History of Any Multi-Drug Resistant Organisms: None Reported Past Surgical History: Appendectomy, Bariatric Surgery, Cholecystectomy, Hernia Repair, Hysterectomy, Joint Replacement, Orthopedic Surgery Additional Past Surgical History / Comment(s): rt hip replacement, rt shoulder rotator Past Anesthesia/Blood Transfusion Reactions: Previous Problems w/ Anesthesia Additional Past Anesthesia/Blood Transfusion Reaction / Comment(s): spray used to numb throat-had anaphylaxis(does not know name). slow to wake up Past Psychological History: Anxiety, Depression, PTSD Smoking Status: Never smoker Past Alcohol Use History: None Reported Past Drug Use History: None Reported - Past Family History Father Family Medical History: Cancer Additional Family Medical History / Comment(s): . Mother Family Medical History: Coronary Artery Disease (CAD), Dementia, Diabetes Mellitus, Thyroid Disorder Additional Family Medical History / Comment(s): diverticulitis, Sister(s) Family Medical History: Cancer General Exam Limitations: physical limitation General appearance: alert, in no apparent distress Head exam: Present: normocephalic Eye exam: Present: normal appearance Neck exam: Present: normal inspection Respiratory exam: Present: normal lung sounds bilaterally. Absent: respiratory distress, wheezes, rales Cardiovascular Exam: Present: regular rate, normal rhythm GI/Abdominal exam: Present: soft. Absent: tenderness Extremities exam: Present: normal inspection. Absent: pedal edema, calf tenderness Neurological exam: Present: alert Psychiatric exam: Present: normal affect, normal mood Skin exam: Present: normal color Course Vital Signs 04/29/21 04/29/21 11:46 12:13 Temperature 98.4 F Pulse Rate 65 Respiratory 18 20 Rate Blood Pressure 141/75 O2 Sat by Pulse 99 Oximetry EKG Findings - EKG Comments: EKG Findings:: St. bradycardia with a rate of 56. SD 104. QRS 82. QT 426. QTc 411. Left axis. Normal QRS. No acute ST change. Medical Decision Making - Medical Decision Making Patient reevaluated and resting comfortably in bed. Patient updated on results. Discussion had with patient and patient was offered admission for observation and further testing and consultants however refuses. Patient agreeable to follow-up with her doctor. - Lab Data Result diagrams: 04/29/21 12:22 04/29/21 12:22 Lab Results 04/29/21 04/29/21 04/29/21 Range/Units 12:22 12:22 12:22 WBC 9.3 (3.8-10.6) k/uL RBC 4.44 (3.80-5.40) m/uL Hgb 13.0 (11.4-16.0) gm/dL Hct 40.3 (34.0-46.0) % MCV 90.8 (80.0-100.0) fL MCH 29.3 (25.0-35.0) pg MCHC 32.2 (31.0-37.0) g/dL RDW 13.1 (11.5-15.5) % Plt Count 311 (150-450) k/uL MPV 8.6 Neutrophils % 69 % Lymphocytes % 21 % Monocytes % 6 % Eosinophils % 2 % Basophils % 1 % Neutrophils # 6.4 (1.3-7.7) k/uL Lymphocytes # 1.9 (1.0-4.8) k/uL Monocytes # 0.6 (0-1.0) k/uL Eosinophils # 0.2 (0-0.7) k/uL Basophils # 0.1 (0-0.2) k/uL PT 9.7 (9.0-12.0) sec INR 0.9 (<1.2) APTT 18.3 L (22.0-30.0) sec Sodium 139 (137-145) mmol/L Potassium 4.2 (3.5-5.1) mmol/L Chloride 105 (98-107) mmol/L Carbon Dioxide 25 (22-30) mmol/L Anion Gap 9 mmol/L BUN 17 (7-17) mg/dL Creatinine 0.64 (0.52-1.04) mg/dL Est GFR (CKD-EPI)AfAm >90 (>60 ml/min/1.73 sqM) Est GFR (CKD-EPI)NonAf >90 (>60 ml/min/1.73 sqM) Glucose 214 H (74-99) mg/dL Calcium 9.8 (8.4-10.2) mg/dL Total Bilirubin 0.7 (0.2-1.3) mg/dL AST 29 (14-36) U/L ALT 20 (4-34) U/L Alkaline Phosphatase 218 H (38-126) U/L Troponin I (0.000-0.034) ng/mL NT-Pro-B Natriuret Pep pg/mL Total Protein 6.4 (6.3-8.2) g/dL Albumin 3.7 (3.5-5.0) g/dL Coronavirus (PCR) (Not Detectd) 04/29/21 04/29/21 04/29/21 Range/Units 12:22 12:22 12:22 WBC (3.8-10.6) k/uL RBC (3.80-5.40) m/uL Hgb (11.4-16.0) gm/dL Hct (34.0-46.0) % MCV (80.0-100.0) fL MCH (25.0-35.0) pg MCHC (31.0-37.0) g/dL RDW (11.5-15.5) % Plt Count (150-450) k/uL MPV Neutrophils % % Lymphocytes % % Monocytes % % Eosinophils % % Basophils % % Neutrophils # (1.3-7.7) k/uL Lymphocytes # (1.0-4.8) k/uL Monocytes # (0-1.0) k/uL Eosinophils # (0-0.7) k/uL Basophils # (0-0.2) k/uL PT (9.0-12.0) sec INR (<1.2) APTT (22.0-30.0) sec Sodium (137-145) mmol/L Potassium (3.5-5.1) mmol/L Chloride (98-107) mmol/L Carbon Dioxide (22-30) mmol/L Anion Gap mmol/L BUN (7-17) mg/dL Creatinine (0.52-1.04) mg/dL Est GFR (CKD-EPI)AfAm (>60 ml/min/1.73 sqM) Est GFR (CKD-EPI)NonAf (>60 ml/min/1.73 sqM) Glucose (74-99) mg/dL Calcium (8.4-10.2) mg/dL Total Bilirubin (0.2-1.3) mg/dL AST (14-36) U/L ALT (4-34) U/L Alkaline Phosphatase (38-126) U/L Troponin I <0.012 (0.000-0.034) ng/mL NT-Pro-B Natriuret Pep 108 pg/mL Total Protein (6.3-8.2) g/dL Albumin (3.5-5.0) g/dL Coronavirus (PCR) Not Detected (Not Detectd) - Radiology Data Radiology results: report reviewed (Computed tomography scan chest negative for pulmonary embolism. Cardiomegaly. Mild basilar bronchiectasis.) Disposition Clinical Impression: Dyspnea Disposition: HOME SELF-CARE Condition: Stable Instructions (If sedation given, give patient instructions): Dyspnea (ED) Additional Instructions: Please follow-up with primary care physician beginning of the week. Return for difficulty breathing, fever, chest pain, worsening or changing symptoms or any other concerns. Is patient prescribed a controlled substance at d/c from ED?: No Referrals: Kevyn Luciano DO [Primary Care Provider] - 1-2 days Time of Disposition: 14:23
[2021-04-29 12:40] LABS: Basophils # (A) 0.1 k/uL (0-0.2); Basophils % (A) 1 %; Eosinophils # (A) 0.2 k/uL (0-0.7); Eosinophils % (A) 2 %; HCT 40.3 % (34.0-46.0); Lymphocytes # (A) 1.9 k/uL (1.0-4.8); Lymphocytes % (A) 21 %; MCH 29.3 pg (25.0-35.0); MCHC 32.2 g/dL (31.0-37.0); MCV 90.8 fL (80.0-100.0); Mean Platelet Volume 8.6; Monocytes # (A) 0.6 k/uL (0-1.0); Monocytes % (A) 6 %; Neutrophils # (A) 6.4 k/uL (1.3-7.7); Neutrophils % (A) 69 %; Platelet Count 311 k/uL (150-450); RBC 4.44 m/uL (3.80-5.40); RDW 13.1 % (11.5-15.5); WBC 9.3 k/uL (3.8-10.6)
[2021-04-29 12:49] LABS: ALT 20 U/L (4-34); AST 29 U/L (14-36); African American GFR (CKD) >90 (>60 ml/min/1.73 sqM); Albumin 3.7 g/dL (3.5-5.0); Alkaline Phosphatase 218 U/L (38-126); Anion Gap 9 mmol/L; Blood Urea Nitrogen 17 mg/dL (7-17); Calcium 9.8 mg/dL (8.4-10.2); Carbon Dioxide 25 mmol/L (22-30); Chloride 105 mmol/L (98-107); Non-African American GFR(CKD) >90 (>60 ml/min/1.73 sqM); Potassium 4.2 mmol/L (3.5-5.1); Sodium 139 mmol/L (137-145); Total Bilirubin 0.7 mg/dL (0.2-1.3); Total Protein 6.4 g/dL (6.3-8.2)
[2021-04-29 12:50] LABS: Glucose 214 mg/dL (74-99)
[2021-04-29 12:56] LABS: INR 0.9 (<1.2); Prothrombin Time 9.7 sec (9.0-12.0)
[2021-04-29 13:01] LABS: Partial Thromboplastin Time 18.3 sec (22.0-30.0)
--- NOTE | 2021-04-29 13:51 | CT ---
EXAMINATION TYPE: CT angio chest DATE OF EXAM: 04/29/2021 1:18 PM COMPARISON: 02/24/2021 HISTORY: PE CT DLP: 268.7 mGycm Automated exposure control for dose reduction was used. CONTRAST: CTA scan of the thorax is performed without and with IV Contrast, patient injected with 100 ml mL of Isovue 370, pulmonary embolism protocol. . FINDINGS: LUNGS: The lungs are grossly clear, there is no concerning parenchymal mass or nodule identified. T here is no pleural effusion or pneumothorax seen. The tracheobronchial tree is patent. There is basi lar bronchiectasis. Subsegmental linear changes at the lung bases most typical of atelectasis MEDIASTINUM: There is satisfactory enhancement of the pulmonary artery and its branches, there is no CT evidence for pulmonary embolism. There are no greater than 1 cm hilar or mediastinal lymph nodes. OTHER: Hiatal hernia noted. Hypertrophic and degenerative changes of the spine. Suggestion of previo us surgery in the epigastrium. IMPRESSION: 1. No diagnostic evidence of pulmonary embolism 2. Cardiomegaly. Changes of mild basilar bronchiectasis noted. 3. Hiatal hernia
[2021-04-29 14:54] VITALS: BP 151/69; PULSE 68; RESP 17; TEMP 98
== END 2021-04-29 14:54 | disposition home or self-care (01) ==
LOC: EC 11:27
DX: R06.00 Dyspnea, unspecified (principal); E11.9 Type 2 diabetes mellitus without complications; E78.5 Hyperlipidemia, unspecified; I11.0 Hypertensive heart disease with heart failure; I48.91 Unspecified atrial fibrillation; I50.9 Heart failure, unspecified; J44.9 Chronic obstructive pulmonary disease, unspecified; K21.9 Gastro-esophageal reflux disease without esophagitis; G40.909 Epilepsy, unspecified, not intractable, without status epilepticus; K58.9 Irritable bowel syndrome, unspecified; M06.9 Rheumatoid arthritis, unspecified; M79.7 Fibromyalgia; G47.30 Sleep apnea, unspecified; F32.9 Major depressive disorder, single episode, unspecified; F41.9 Anxiety disorder, unspecified; Z20.822 Contact with and (suspected) exposure to COVID-19; Z85.43 Personal history of malignant neoplasm of ovary; Z86.73 Personal history of transient ischemic attack (TIA), and cerebral infarction without residual deficits; Z86.711 Personal history of pulmonary embolism; Z87.440 Personal history of urinary (tract) infections; Z79.01 Long term (current) use of anticoagulants; Z79.4 Long term (current) use of insulin; Z79.82 Long term (current) use of aspirin; Z79.899 Other long term (current) drug therapy; Z88.1 Allergy status to other antibiotic agents; Z88.2 Allergy status to sulfonamides; Z88.0 Allergy status to penicillin; Z96.641 Presence of right artificial hip joint; Z90.49 Acquired absence of other specified parts of digestive tract
CPT/HCPCS: 36415; 93005; 83880; 80053; 84484; 85025; 85610; 85730; 87635; 71275; 99285; Q9967

== ENCOUNTER 2021-06-25 12:36 | Emergency (ER) | payer MEDICARE, OTHER ==
[2021-06-25 12:53] VITALS: BP 159/83; PULSE 70; RESP 16; TEMP 98.3
--- NOTE | 2021-06-25 13:09 | ED ---
General Adult HPI - General Chief complaint: Eye Problems Stated complaint: poss spider bite, rt eye Time Seen by Provider: 06/25/21 12:57 Source: patient Mode of arrival: ambulatory Limitations: no limitations - History of Present Illness Initial comments: Dictation was produced using [employer] dictation software. please excuse any grammatical, word or spelling errors. Chief Complaint: 66-year-old female presents with reported spider bite to the right lower eyelid History of Present Illness: This is a 66-year-old female she has multiple comorbidities per she takes anticoagulation medications. She is here today because she believes she was bitten by a spider to her right lower eyelid. Patient states she was cleaning the basement and family member's house. She saw a brown spider that she thinks may have perhaps been a brown recluse that went to her face. She thinks that she was minaya. Patient noticed today that she was having a pimple-like formation over the medial portion of her right eyelid. No fevers. No abdominal pain. No other symptoms. 2 days ago patient reports that she fell after tripping over a toy. She landed on her left face. She does have some pain when looking down and to the left. She is noted some ecchymoses around her left periorbital area. The ROS documented in this emergency department record has been reviewed and confirmed by me. Those systems with pertinent positive or negative responses have been documented in the HPI. All other systems are other negative and/or noncontributory. PHYSICAL EXAM: General Impression: Alert and oriented x3, not in acute distress HEENT: Mild swelling around the left periorbital tissues, ecchymoses around the left eye, extra-ocular movements intact, pupils equal and reactive to light bilaterally, mucous membranes moist. Ocular: There is a stye eye to the medial external right lower eyelid Cardiovascular: Heart regular rate and rhythm Chest: Able to complete full sentences, no retractions, no tachypnea Abdomen: abdomen soft, non-tender, non-distended, no organomegaly Musculoskeletal: Pulses present and equal in all extremities, no peripheral edema Motor: no focal deficits noted Neurological: CN II-XII grossly intact, no focal motor or sensory deficits noted Skin: Intact with no visualized rashes Psych: Normal affect and mood ED course: 66-year-old female with head trauma and stye. Vital signs upon arrival are within acceptable limits. Computed tomography scan of the face is unremarkable. Face CT is unremarkable. Patient given oral antibiotics for external hordeolum. clinical presentation consistent with facial contusion. Patient has no associated periorbital cellulitis. Patient given prescription for Keflex. She is ALLERGIC to several antibiotics. Point not entirely indicated to provide patient with antibiotics and cover MRSA. Patient given outpatient for all to ophthalmology for outpatient management. - Related Data Home Medications Medication Instructions Recorded Confirmed Insulin Glargine [Lantus Vial] 35 unit SQ HS 05/14/19 04/29/21 Atorvastatin [Lipitor] 20 mg PO HS 02/12/21 04/29/21 Apixaban [Eliquis] 10 mg PO DAILY 04/29/21 04/29/21 Aspirin 324 mg PO DAILY 04/29/21 04/29/21 INSULIN ASPART (NovoLOG) [NovoLOG 15 unit SQ AC-TID 04/29/21 04/29/21 (formulary)] Tobramycin [Tobrex 0.3% Oph Soln] 2 drop LEFT EYE Q8H 04/29/21 04/29/21 amLODIPine [Norvasc] 10 mg PO DAILY 04/29/21 04/29/21 calcium polycarbophiL [Fibercon] 625 mg PO DAILY 04/29/21 04/29/21 lisinopriL 20 mg PO BID 04/29/21 04/29/21 Previous Rx's Medication Instructions Recorded Cephalexin [Keflex] 500 mg PO Q6HR 5 Days #20 cap 06/25/21 Allergies Allergy/AdvReac Type Severity Reaction Status Date / Time ampicillin Allergy Rash/Hives Verified 06/25/21 12:53 codeine Allergy Rash/Hives Verified 06/25/21 12:53 erythromycin base Allergy Rash/Hives Verified 06/25/21 12:53 indomethacin Allergy Per [facility] Verified 06/25/21 12:53 lidocaine Allergy Per [facility] Verified 06/25/21 12:53 lorazepam [From Ativan] Allergy Rash/Hives Verified 06/25/21 12:53 Penicillins Allergy Rash/Hives Verified 06/25/21 12:53 Sulfa (Sulfonamide Allergy Rash/Hives Verified 06/25/21 12:53 Antibiotics) Review of Systems ROS Statement: Those systems with pertinent positive or pertinent negative responses have been documented in the HPI. ROS Other: All systems not noted in ROS Statement are negative. Past Medical History Past Medical History: Atrial Fibrillation, Asthma, Cancer, Chest Pain / Angina, Heart Failure, COPD, Diabetes Mellitus, Fibromyalgia, GERD/Reflux, Hyperlipidemia, Hypertension, Osteoarthritis (OA), Pneumonia, Pulmonary Embolus (PE), Rheumatoid Arthritis (RA), Seizure Disorder, Sleep Apnea/CPAP/BIPAP Additional Past Medical History / Comment(s): mult TIA-no effects, migraines, irregular heartbeat, varicose veins, no cpap used, oxygen PRN for migraines, hx ulcer, IBS, gout, UTI's, ovarian cancer, diverticulitis History of Any Multi-Drug Resistant Organisms: None Reported Past Surgical History: Appendectomy, Bariatric Surgery, Cholecystectomy, Hernia Repair, Hysterectomy, Joint Replacement, Orthopedic Surgery Additional Past Surgical History / Comment(s): rt hip replacement, rt shoulder rotator Past Anesthesia/Blood Transfusion Reactions: Previous Problems w/ Anesthesia Additional Past Anesthesia/Blood Transfusion Reaction / Comment(s): spray used to numb throat-had anaphylaxis(does not know name). slow to wake up Past Psychological History: Anxiety, Depression, PTSD Smoking Status: Never smoker Past Alcohol Use History: None Reported Past Drug Use History: None Reported - Past Family History Father Family Medical History: Cancer Additional Family Medical History / Comment(s): . Mother Family Medical History: Coronary Artery Disease (CAD), Dementia, Diabetes Mellitus, Thyroid Disorder Additional Family Medical History / Comment(s): diverticulitis, Sister(s) Family Medical History: Cancer General Exam Limitations: no limitations Course Vital Signs 06/25/21 12:49 Temperature 98.3 F Pulse Rate 70 Respiratory 16 Rate Blood Pressure 159/83 O2 Sat by Pulse 100 Oximetry Disposition Clinical Impression: Hordeolum external, Facial contusion Disposition: HOME SELF-CARE Condition: Fair Instructions (If sedation given, give patient instructions): [facility] (ED) Additional Instructions: youre diagnosed with stye eye. It is important that he follow-up with ophthalmology of your choice. You're given outpatient information to Dr. Chavis who is a radiation / chemistry technician locally. And a bag sent to the pharmacy. You are encouraged to apply warm compresses to your right lower eyelid. Do not use makeup. Prescriptions: Cephalexin [Keflex] 500 mg PO Q6HR 5 Days #20 cap Is patient prescribed a controlled substance at d/c from ED?: No Referrals: Oniel Chavis MD [STAFF PHYSICIAN] - 1-2 days
--- NOTE | 2021-06-25 14:21 | CT ---
EXAMINATION TYPE: CT facial bones wo con DATE OF EXAM: 06/25/2021 COMPARISON: HISTORY: Fall and on thinners...left eye contusion; right eye possible spider bite CT DLP: 1364.4 mGycm Automated exposure control for dose reduction was used. Images obtained from the bottom of the mandible to the top of the skull without contrast. Mandibular ring is intact. Temporomandibular joints are intact. Maxilla is intact. Zygomatic arches a ppear normal. Nasal bone is intact. There is normal aeration of the paranasal sinuses. Orbital margin s are intact. There is no evidence of retro-orbital mass. There is no evidence of orbital blowout fra cture. Calvarium appears intact. There is normal aeration of the mastoid sinuses. IMPRESSION: Negative CT scan of the facial bones. No evidence of orbital injury.
--- NOTE | 2021-06-25 14:24 | CT ---
EXAMINATION TYPE: CT brain wo con DATE OF EXAM: 06/25/2021 COMPARISON: 02/26/2021 HISTORY: Headache. Head trauma. CT DLP: mGycm Automated exposure control for dose reduction was used. Ventricles have normal size. There is no mass effect nor midline shift. There is no sign of intracran ial hemorrhage. Calvarium is intact. There is normal aeration of the mastoid sinuses. IMPRESSION: Negative unenhanced head CT scan. No change compared to old exam.
== END 2021-06-25 15:38 | disposition home or self-care (01) ==
LOC: EC 12:36
DX: S00.83XA Contusion of other part of head, initial encounter (principal); H00.012 Hordeolum externum right lower eyelid; E11.9 Type 2 diabetes mellitus without complications; E78.5 Hyperlipidemia, unspecified; I11.0 Hypertensive heart disease with heart failure; I48.91 Unspecified atrial fibrillation; I50.9 Heart failure, unspecified; J44.9 Chronic obstructive pulmonary disease, unspecified; K21.9 Gastro-esophageal reflux disease without esophagitis; G40.909 Epilepsy, unspecified, not intractable, without status epilepticus; M06.9 Rheumatoid arthritis, unspecified; M79.7 Fibromyalgia; Z79.01 Long term (current) use of anticoagulants; Z79.4 Long term (current) use of insulin; Z79.82 Long term (current) use of aspirin; Z79.899 Other long term (current) drug therapy; Z83.3 Family history of diabetes mellitus; Z82.49 Family history of ischemic heart disease and other diseases of the circulatory system; Z83.49 Family history of other endocrine, nutritional and metabolic diseases; Z85.43 Personal history of malignant neoplasm of ovary; Z86.711 Personal history of pulmonary embolism; Z86.73 Personal history of transient ischemic attack (TIA), and cerebral infarction without residual deficits; Z88.0 Allergy status to penicillin; Z88.1 Allergy status to other antibiotic agents; Z88.2 Allergy status to sulfonamides; Z90.49 Acquired absence of other specified parts of digestive tract; Z96.641 Presence of right artificial hip joint; W01.0XXA Fall on same level from slipping, tripping and stumbling without subsequent striking against object, initial encounter
CPT/HCPCS: 70450; 70486; 99284

== ENCOUNTER 2021-08-22 10:46 | Emergency (ER) | payer MEDICARE, OTHER ==
[2021-08-22 10:55] VITALS: TEMP 96.9
[2021-08-22] MEDS ORDERED: SODIUM CHLORIDE 0.9% 500 ML 500 ML IV STA (11:02)
[2021-08-22] MEDS ORDERED: ONDANSETRON 4 MG/2 ML VIAL IVP STA (11:03)
[2021-08-22] MEDS ORDERED: HYDROmorphone 0.5 MG/0.5 ML SYRINGE IVP STA ×2 (11:03→14:08)
[2021-08-22 11:20] LABS: Glucose,Whole Blood 80 mg/dL (75-99)
[2021-08-22 11:37] LABS: Basophils # (A) 0.1 k/uL (0-0.2); Basophils % (A) 0 %; Eosinophils # (A) 0.2 k/uL (0-0.7); Eosinophils % (A) 1 %; Lymphocytes # (A) 1.3 k/uL (1.0-4.8); Lymphocytes % (A) 11 %; MCH 29.9 pg (25.0-35.0); MCHC 33.4 g/dL (31.0-37.0); MCV 89.4 fL (80.0-100.0); Mean Platelet Volume 7.4; Monocytes # (A) 0.6 k/uL (0-1.0); Monocytes % (A) 5 %; Neutrophils # (A) 9.5 k/uL (1.3-7.7); Neutrophils % (A) 81 %; Platelet Count 314 k/uL (150-450); RBC 4.37 m/uL (3.80-5.40); RDW 13.6 % (11.5-15.5); WBC 11.7 k/uL (3.8-10.6)
[2021-08-22 11:52] LABS: INR 0.9 (<1.2); Prothrombin Time 9.9 sec (9.0-12.0)
[2021-08-22 11:58] LABS: Albumin 3.7 g/dL (3.5-5.0); Calcium 9.6 mg/dL (8.4-10.2); Magnesium 2.1 mg/dL (1.6-2.3); Potassium 4.7 mmol/L (3.5-5.1); Total Bilirubin 0.7 mg/dL (0.2-1.3); Total Protein 6.8 g/dL (6.3-8.2)
--- NOTE | 2021-08-22 12:17 | XR ---
EXAMINATION TYPE: XR femur RT DATE OF EXAM: 08/22/2021 COMPARISON: None HISTORY: Pain, fall TECHNIQUE: 2 view right femur FINDINGS: Right femoral prosthesis is present. Femoral component articulates with the acetabular comp onent. Knee prosthesis is present. There is a fracture at the distal metaphyseal knee. IMPRESSION: 1. Fracture distal metaphyseal knee just above the right knee prosthesis.
--- NOTE | 2021-08-22 12:18 | XR ---
EXAMINATION TYPE: XR knee limited RT DATE OF EXAM: 08/22/2021 COMPARISON: None HISTORY: Pain, fall TECHNIQUE: 2 view right knee FINDINGS: Tibial and femoral components are present. There is a metaphyseal fracture along the medial distal right femur just above the prosthesis. Some dorsal angulation of the distal fracture fragment may be present. Soft tissue swelling is over the suprapatellar region. IMPRESSION: 1. Fracture of the medial distal metaphyseal right femur.
--- NOTE | 2021-08-22 12:20 | XR ---
EXAMINATION TYPE: XR chest 1V DATE OF EXAM: 08/22/2021 COMPARISON: 02/23/2021 INDICATION: Fall, presurgical clearance TECHNIQUE: Single frontal view of the chest is obtained. FINDINGS: The heart size is moderately prominent. The pulmonary vasculature is normal. No suspicious focal consolidation is evident. No pneumothorax is evident. IMPRESSION: 1. No acute pulmonary process.
[2021-08-22 12:30] LABS: Glucose,Whole Blood 71 mg/dL (75-99)
[2021-08-22 12:34] LABS: Appearance,Urine Clear (Clear); Bilirubin,Urine Negative (Negative); Blood,Urine Negative (Negative); Color,Urine Yellow; Glucose,Urine (UA) Negative (Negative); Ketones,Urine Negative (Negative); Leukocyte Esterase,Urine Moderate (Negative); Mucus,Urine Rare /hpf; Nitrite,Urine Negative (Negative); Protein,Urine Negative (Negative); RBC,Urine <1 /hpf (0-5); Specific Gravity,Urine 1.012 (1.001-1.035); Squamous Epithelial Cell,Urine <1 /hpf (0-4); Urobilinogen,Urine <2.0 mg/dL (<2.0); WBC,Urine 8 /hpf (0-5)
--- NOTE | 2021-08-22 12:42 | ED ---
General Adult HPI - General Chief complaint: Syncope Stated complaint: Fall Time Seen by Provider: 08/22/21 10:54 Source: patient, EMS, RN notes reviewed Mode of arrival: EMS Limitations: no limitations - History of Present Illness Initial comments: This a 66-year-old female presented emergency from via EMS chief when will fall. Patient states she went to get up out of bed to go to breakfast states that she does not have much of Stella the ground complaint right knee pain. No head injury no headache dizziness blurred vision. Patient states she feels much better at this time mother in her knee pain. Patient found to be hyperglycemic, blood sugar was 60. Patient states she is known diabetic. Patient states she's had prior knee and hip surgery by Dr. Petersen. She currently sees Dr. Lambert. - Related Data Home Medications Medication Instructions Recorded Confirmed Atorvastatin [Lipitor] 20 mg PO HS 02/12/21 08/22/21 Apixaban [Eliquis] 5 mg PO BID 04/29/21 08/22/21 amLODIPine [Norvasc] 10 mg PO DAILY 04/29/21 08/22/21 Cinnamon Bark [Cinnamon] 500 mg PO DAILY 08/22/21 08/22/21 Citalopram Hydrobromide [CeleXA] 10 mg PO DAILY 08/22/21 08/22/21 Empagliflozin [Jardiance] 10 mg PO DAILY 08/22/21 08/22/21 Pantoprazole [Protonix] 40 mg PO DAILY 08/22/21 08/22/21 Probiotic W/Cranberry 1 tab PO DAILY 08/22/21 08/22/21 Turmeric W/Lisa 1 tab PO DAILY 08/22/21 08/22/21 Allergies Allergy/AdvReac Type Severity Reaction Status Date / Time ampicillin Allergy Rash/Hives Verified 08/22/21 12:56 codeine Allergy Rash/Hives Verified 08/22/21 12:56 erythromycin base Allergy Rash/Hives Verified 08/22/21 12:56 indomethacin Allergy Per [facility] Verified 08/22/21 12:56 lidocaine Allergy Per [facility] Verified 08/22/21 12:56 lorazepam [From Ativan] Allergy Rash/Hives Verified 08/22/21 12:56 Penicillins Allergy Rash/Hives Verified 08/22/21 12:56 Sulfa (Sulfonamide Allergy Rash/Hives Verified 08/22/21 12:56 Antibiotics) Review of Systems ROS Statement: Those systems with pertinent positive or pertinent negative responses have been documented in the HPI. ROS Other: All systems not noted in ROS Statement are negative. Past Medical History Past Medical History: Atrial Fibrillation, Asthma, Cancer, Chest Pain / Angina, Heart Failure, COPD, Diabetes Mellitus, Fibromyalgia, GERD/Reflux, Hyperlipidemia, Hypertension, Osteoarthritis (OA), Pneumonia, Pulmonary Embolus (PE), Rheumatoid Arthritis (RA), Seizure Disorder, Sleep Apnea/CPAP/BIPAP Additional Past Medical History / Comment(s): mult TIA-no effects, migraines, irregular heartbeat, varicose veins, no cpap used, oxygen PRN for migraines, hx ulcer, IBS, gout, UTI's, ovarian cancer, diverticulitis History of Any Multi-Drug Resistant Organisms: None Reported Past Surgical History: Appendectomy, Bariatric Surgery, Cholecystectomy, Hernia Repair, Hysterectomy, Joint Replacement, Orthopedic Surgery Additional Past Surgical History / Comment(s): rt hip replacement, rt shoulder rotator Past Anesthesia/Blood Transfusion Reactions: Previous Problems w/ Anesthesia Additional Past Anesthesia/Blood Transfusion Reaction / Comment(s): spray used to numb throat-had anaphylaxis(does not know name). slow to wake up Past Psychological History: Anxiety, Depression, PTSD Smoking Status: Never smoker Past Alcohol Use History: None Reported Past Drug Use History: None Reported - Past Family History Father Family Medical History: Cancer Additional Family Medical History / Comment(s): . Mother Family Medical History: Coronary Artery Disease (CAD), Dementia, Diabetes Mellitus, Thyroid Disorder Additional Family Medical History / Comment(s): diverticulitis, Sister(s) Family Medical History: Cancer General Exam Limitations: no limitations General appearance: alert, in no apparent distress Head exam: Present: atraumatic, normocephalic, normal inspection Eye exam: Present: normal appearance, PERRL, EOMI. Absent: scleral icterus, conjunctival injection, periorbital swelling ENT exam: Present: normal exam, mucous membranes moist Neck exam: Present: normal inspection. Absent: tenderness, meningismus, lymphadenopathy Respiratory exam: Present: normal lung sounds bilaterally. Absent: respiratory distress, wheezes, rales, rhonchi, stridor Cardiovascular Exam: Present: regular rate, normal rhythm, normal heart sounds. Absent: systolic murmur, diastolic murmur, rubs, gallop, clicks GI/Abdominal exam: Present: soft, normal bowel sounds. Absent: distended, tenderness, guarding, rebound, rigid Extremities exam: Present: other (Tenderness to distal femur region, leg is neurovascularly intact pain with any range of motion.) Neurological exam: Present: alert Skin exam: Present: warm, dry, intact, normal color. Absent: rash Course Vital Signs 08/22/21 08/22/21 08/22/21 10:49 10:55 12:37 Temperature 96.9 F L Pulse Rate 58 L 85 Respiratory 16 16 Rate Blood Pressure 144/70 166/63 O2 Sat by Pulse 98 97 Oximetry Medical Decision Making - Medical Decision Making X-ray shows evidence of distal femur fracture. Case discussed with Osmin Pettit on-call for Dr. Leal who states that the patient should be placed in knee immobilizer, transferred to trauma orthopedic surgeon. I did discuss the case with Dr. Childress, and Dr. Camejo in emergency department accepts transfer. - Lab Data Result diagrams: 08/22/21 11:17 08/22/21 11:17 Lab Results 08/22/21 08/22/21 08/22/21 Range/Units 11:12 11:17 11:17 WBC 11.7 H (3.8-10.6) k/uL RBC 4.37 (3.80-5.40) m/uL Hgb 13.0 (11.4-16.0) gm/dL Hct 39.0 (34.0-46.0) % MCV 89.4 (80.0-100.0) fL MCH 29.9 (25.0-35.0) pg MCHC 33.4 (31.0-37.0) g/dL RDW 13.6 (11.5-15.5) % Plt Count 314 (150-450) k/uL MPV 7.4 Neutrophils % 81 % Lymphocytes % 11 % Monocytes % 5 % Eosinophils % 1 % Basophils % 0 % Neutrophils # 9.5 H (1.3-7.7) k/uL Lymphocytes # 1.3 (1.0-4.8) k/uL Monocytes # 0.6 (0-1.0) k/uL Eosinophils # 0.2 (0-0.7) k/uL Basophils # 0.1 (0-0.2) k/uL PT 9.9 (9.0-12.0) sec INR 0.9 (<1.2) APTT 23.0 (22.0-30.0) sec Sodium (137-145) mmol/L Potassium (3.5-5.1) mmol/L Chloride (98-107) mmol/L Carbon Dioxide (22-30) mmol/L Anion Gap mmol/L BUN (7-17) mg/dL Creatinine (0.52-1.04) mg/dL Est GFR (CKD-EPI)AfAm (>60 ml/min/1.73 sqM) Est GFR (CKD-EPI)NonAf (>60 ml/min/1.73 sqM) Glucose (74-99) mg/dL POC Glucose (mg/dL) 80 (75-99) mg/dL POC Glu Supervisor [employer] ID Julio Cesar Churchill Calcium (8.4-10.2) mg/dL Magnesium (1.6-2.3) mg/dL Total Bilirubin (0.2-1.3) mg/dL AST (14-36) U/L ALT (4-34) U/L Alkaline Phosphatase (38-126) U/L Troponin I (0.000-0.034) ng/mL Total Protein (6.3-8.2) g/dL Albumin (3.5-5.0) g/dL Urine Color Urine Appearance (Clear) Urine pH (5.0-8.0) Ur Specific [place] (1.001-1.035) Urine Protein (Negative) Urine Glucose (UA) (Negative) Urine Ketones (Negative) Urine Blood (Negative) Urine Nitrite (Negative) Urine Bilirubin (Negative) Urine Urobilinogen (<2.0) mg/dL Ur Leukocyte Esterase (Negative) Urine RBC (0-5) /hpf Urine WBC (0-5) /hpf Ur Squamous Epith Cells (0-4) /hpf Urine Mucus (None) /hpf 08/22/21 08/22/21 08/22/21 Range/Units 11:17 11:17 12:23 WBC (3.8-10.6) k/uL RBC (3.80-5.40) m/uL Hgb (11.4-16.0) gm/dL Hct (34.0-46.0) % MCV (80.0-100.0) fL MCH (25.0-35.0) pg MCHC (31.0-37.0) g/dL RDW (11.5-15.5) % Plt Count (150-450) k/uL MPV Neutrophils % % Lymphocytes % % Monocytes % % Eosinophils % % Basophils % % Neutrophils # (1.3-7.7) k/uL Lymphocytes # (1.0-4.8) k/uL Monocytes # (0-1.0) k/uL Eosinophils # (0-0.7) k/uL Basophils # (0-0.2) k/uL PT (9.0-12.0) sec INR (<1.2) APTT (22.0-30.0) sec Sodium 140 (137-145) mmol/L Potassium 4.7 (3.5-5.1) mmol/L Chloride 108 H (98-107) mmol/L Carbon Dioxide 26 (22-30) mmol/L Anion Gap 6 mmol/L BUN 14 (7-17) mg/dL Creatinine 0.83 (0.52-1.04) mg/dL Est GFR (CKD-EPI)AfAm 85 (>60 ml/min/1.73 sqM) Est GFR (CKD-EPI)NonAf 74 (>60 ml/min/1.73 sqM) Glucose 91 (74-99) mg/dL POC Glucose (mg/dL) (75-99) mg/dL POC Glu Supervisor [employer] ID Calcium 9.6 (8.4-10.2) mg/dL Magnesium 2.1 (1.6-2.3) mg/dL Total Bilirubin 0.7 (0.2-1.3) mg/dL AST 37 H (14-36) U/L ALT 22 (4-34) U/L Alkaline Phosphatase 210 H (38-126) U/L Troponin I <0.012 (0.000-0.034) ng/mL Total Protein 6.8 (6.3-8.2) g/dL Albumin 3.7 (3.5-5.0) g/dL Urine Color Yellow Urine Appearance Clear (Clear) Urine pH 7.0 (5.0-8.0) Ur Specific [place] 1.012 (1.001-1.035) Urine Protein Negative (Negative) Urine Glucose (UA) Negative (Negative) Urine Ketones Negative (Negative) Urine Blood Negative (Negative) Urine Nitrite Negative (Negative) Urine Bilirubin Negative (Negative) Urine Urobilinogen <2.0 (<2.0) mg/dL Ur Leukocyte Esterase Moderate H (Negative) Urine RBC <1 (0-5) /hpf Urine WBC 8 H (0-5) /hpf Ur Squamous Epith Cells <1 (0-4) /hpf Urine Mucus Rare H (None) /hpf 08/22/21 Range/Units 12:29 WBC (3.8-10.6) k/uL RBC (3.80-5.40) m/uL Hgb (11.4-16.0) gm/dL Hct (34.0-46.0) % MCV (80.0-100.0) fL MCH (25.0-35.0) pg MCHC (31.0-37.0) g/dL RDW (11.5-15.5) % Plt Count (150-450) k/uL MPV Neutrophils % % Lymphocytes % % Monocytes % % Eosinophils % % Basophils % % Neutrophils # (1.3-7.7) k/uL Lymphocytes # (1.0-4.8) k/uL Monocytes # (0-1.0) k/uL Eosinophils # (0-0.7) k/uL Basophils # (0-0.2) k/uL PT (9.0-12.0) sec INR (<1.2) APTT (22.0-30.0) sec Sodium (137-145) mmol/L Potassium (3.5-5.1) mmol/L Chloride (98-107) mmol/L Carbon Dioxide (22-30) mmol/L Anion Gap mmol/L BUN (7-17) mg/dL Creatinine (0.52-1.04) mg/dL Est GFR (CKD-EPI)AfAm (>60 ml/min/1.73 sqM) Est GFR (CKD-EPI)NonAf (>60 ml/min/1.73 sqM) Glucose (74-99) mg/dL POC Glucose (mg/dL) 71 L (75-99) mg/dL POC Glu Supervisor [employer] ID Julio Cesar Churchill Calcium (8.4-10.2) mg/dL Magnesium (1.6-2.3) mg/dL Total Bilirubin (0.2-1.3) mg/dL AST (14-36) U/L ALT (4-34) U/L Alkaline Phosphatase (38-126) U/L Troponin I (0.000-0.034) ng/mL Total Protein (6.3-8.2) g/dL Albumin (3.5-5.0) g/dL Urine Color Urine Appearance (Clear) Urine pH (5.0-8.0) Ur Specific [place] (1.001-1.035) Urine Protein (Negative) Urine Glucose (UA) (Negative) Urine Ketones (Negative) Urine Blood (Negative) Urine Nitrite (Negative) Urine Bilirubin (Negative) Urine Urobilinogen (<2.0) mg/dL Ur Leukocyte Esterase (Negative) Urine RBC (0-5) /hpf Urine WBC (0-5) /hpf Ur Squamous Epith Cells (0-4) /hpf Urine Mucus (None) /hpf Disposition Clinical Impression: Fracture of distal end of right femur, Hypoglycemia Disposition: OTHER INSTITUTION NOT DEFINED Condition: Stable Referrals: Kevyn Luciano DO [Primary Care Provider] - 1-2 days Time of Disposition: 13:01 - Out of Hospital Transfer - Req. Specs Out of Hospital Transfer - Requested Specifics: Other Emergency Center ([facility])
[2021-08-22 13:58] VITALS: BP 139/66; PULSE 65; RESP 20
== END 2021-08-22 14:37 | disposition other institution (70) ==
LOC: EC 10:46
DX: S72.492A Other fracture of lower end of left femur, initial encounter for closed fracture (principal); E11.649 Type 2 diabetes mellitus with hypoglycemia without coma; I11.0 Hypertensive heart disease with heart failure; I50.9 Heart failure, unspecified; I48.91 Unspecified atrial fibrillation; J45.909 Unspecified asthma, uncomplicated; M79.7 Fibromyalgia; K21.9 Gastro-esophageal reflux disease without esophagitis; E78.5 Hyperlipidemia, unspecified; M19.90 Unspecified osteoarthritis, unspecified site; F41.9 Anxiety disorder, unspecified; F32.A Depression, unspecified; F43.12 Post-traumatic stress disorder, chronic; Z79.01 Long term (current) use of anticoagulants; Z88.0 Allergy status to penicillin; Z88.1 Allergy status to other antibiotic agents; Z88.2 Allergy status to sulfonamides; Z88.5 Allergy status to narcotic agent; Z86.711 Personal history of pulmonary embolism; Z87.440 Personal history of urinary (tract) infections; Z85.43 Personal history of malignant neoplasm of ovary; Z90.49 Acquired absence of other specified parts of digestive tract; Z98.84 Bariatric surgery status; Z90.710 Acquired absence of both cervix and uterus; Z96.641 Presence of right artificial hip joint; W01.0XXA Fall on same level from slipping, tripping and stumbling without subsequent striking against object, initial encounter
CPT/HCPCS: 99285; 96374; 96375; 96376; 36415; 93005; 80053; 83735; 84484; 85025; 85610; 85730; 81001; 87635; 73552; 73560; 71045; L1830; J2405; J1170

== ENCOUNTER → 2022-01-30 | Outpatient (CLI) | payer MEDICARE, OTHER ==
--- NOTE | 2022-01-31 22:12 | BD ---
EXAMINATION TYPE: Axial Bone Density DATE OF EXAM: 01/30/2022 COMPARISON: NONE CLINICAL HISTORY: 66 years year old Female. ICD-10 CODE: Z78.0 Post menopausal without HRT Height: 50.5 Weight: 152.7 FRAX RISK QUESTIONS: History of Fracture in Adulthood: RT HIP FX WITH REPLACEMENT, RT FEMUR FX Secondary Osteoporosis: 3. Menopause before 45: YES TOTAL HYSTERECTOMY 43 Rheumatoid Arthritis: YES RISK FACTORS HISTORY OF: Hip Fracture (Right): FX AT AGE 64 Surgery to Hip(right FX AT AGE 64 Family History of Osteoporosis: YES Active: LIMITED Postmenopausal woman: 43 Frequent falls: YES Poor Health: FAIR MEDICATIONS: Additional Medications:CALCIUM, VITAMIN D, BP MEDS, DIABETIC MEDS, CARDIO MEDS, NERVE MEDS EXAM MEASUREMENTS: Bone mineral densitometry was performed using the [employer]. Bone mineral density as measured about the Lumbar spine is: ----- L1-L4(G/cm2): 1.337 T Score Values are as follows: ----- L1: 0.9 ----- L2: 1.1 ----- L3: 2.1 ----- L4: 1.2 ----- L1-L4: 1.3 Bone mineral density BASELINE Bone mineral density about the L hip (g/cm2): 0.820 T Score values are as follows: -----L Neck: -1.6 L Total: -1.0 Bone mineral density BASELINE FRAX%s: The graph provided illustrates a 19.2% chance for a major osteoporotic fx and a 2.6% chance f or the hips probability for fx in 10 years time. IMPRESSION: Osteopenia (T Score between -2.5 and -1). There is slightly increased risk of fracture and the patient may be considered for treatment. Re-Screen 2-5 years. NOTE: T-SCORE=SD OF THE YOUNG ADULT MEAN.
--- NOTE | 2022-02-01 13:04 | MM ---
Reason for exam: screening (asymptomatic). Last mammogram was performed 5 years and 1 month ago. History: Patient is postmenopausal, has history of ovarian cancer at age 44, and is nulliparous. Family history of premenopausal breast cancer in sister, breast cancer in aunt, and breast cancer in cousin. Physical Findings: A clinical breast exam by your physician is recommended on an annual basis and results should be correlated with mammographic findings. MG 3D Screening Mammo W/Cad Bilateral CC and MLO view(s) were taken. Prior study comparison: December 19, 2016, bilateral MG screening mammo w CAD. There are scattered fibroglandular densities. Loop recorder device posterior medial left breast. No significant changes when compared with prior studies. ASSESSMENT: Benign, BI-RAD 2 RECOMMENDATION: Routine screening mammogram of both breasts in 1 year.
== END | disposition home or self-care (01) ==
LOC: RADMAMWWP 14:05
PROVIDERS: ATTEND Family Medicine
DX: Z12.31 Encounter for screening mammogram for malignant neoplasm of breast (principal); M85.852 Other specified disorders of bone density and structure, left thigh; Z78.0 Asymptomatic menopausal state; Z85.43 Personal history of malignant neoplasm of ovary; Z80.3 Family history of malignant neoplasm of breast
CPT/HCPCS: 77063; 77067; 77080

== ENCOUNTER 2022-05-24 16:01 | Emergency (ER) | payer OTHER, MEDICARE ==
[2022-05-24 16:17] VITALS: TEMP 98.1
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
[2022-05-24 17:22] LABS: Basophils # (A) 0.1 k/uL (0-0.2); Basophils % (A) 0 %; Eosinophils # (A) 0.2 k/uL (0-0.7); Eosinophils % (A) 1 %; HCT 43.7 % (34.0-46.0); HGB 13.6 gm/dL (11.4-16.0); Lymphocytes # (A) 1.5 k/uL (1.0-4.8); Lymphocytes % (A) 9 %; MCH 28.3 pg (25.0-35.0); MCV 91.1 fL (80.0-100.0); Mean Platelet Volume 8.3; Monocytes % (A) 6 %; Neutrophils # (A) 14.3 k/uL (1.3-7.7); Neutrophils % (A) 84 %; Platelet Count 247 k/uL (150-450); RDW 13.6 % (11.5-15.5); WBC 17.1 k/uL (3.8-10.6)
[2022-05-24 17:31] LABS: Albumin 3.9 g/dL (3.5-5.0); Calcium 9.7 mg/dL (8.4-10.2); Potassium 4.2 mmol/L (3.5-5.1); Total Bilirubin 0.9 mg/dL (0.2-1.3)
[2022-05-24 17:39] LABS: INR 0.9 (<1.2); Partial Thromboplastin Time 23.5 sec (22.0-30.0); Prothrombin Time 9.7 sec (9.0-12.0)
--- NOTE | 2022-05-24 17:56 | XR ---
EXAMINATION TYPE: XR hand complete RT DATE OF EXAM: 05/24/2022 COMPARISON: NONE HISTORY: Pain TECHNIQUE: 3 views FINDINGS: There is narrowing and spurring at the first carpometacarpal joint. I see no fracture nor d islocation. There are no erosions. The fingers are intact. IMPRESSION: There is some osteoarthritis at the base of the thumb. No fracture seen.
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
[2022-05-24 20:03] VITALS: RESP 15
[2022-05-24 20:16] VITALS: BP 139/67; PULSE 88
== END 2022-05-24 20:16 | disposition home or self-care (01) ==
LOC: EC 16:01
DX: R07.89 Other chest pain (principal); M25.511 Pain in right shoulder; D72.829 Elevated white blood cell count, unspecified; I11.0 Hypertensive heart disease with heart failure; I50.9 Heart failure, unspecified; J44.9 Chronic obstructive pulmonary disease, unspecified; E11.9 Type 2 diabetes mellitus without complications; I48.91 Unspecified atrial fibrillation; M79.7 Fibromyalgia; K21.9 Gastro-esophageal reflux disease without esophagitis; E78.5 Hyperlipidemia, unspecified; Z88.1 Allergy status to other antibiotic agents; Z88.5 Allergy status to narcotic agent; Z88.8 Allergy status to other drugs, medicaments and biological substances; Z88.2 Allergy status to sulfonamides; Z79.899 Other long term (current) drug therapy; Z79.01 Long term (current) use of anticoagulants; Z79.84 Long term (current) use of oral hypoglycemic drugs; V89.2XXA Person injured in unspecified motor-vehicle accident, traffic, initial encounter
CPT/HCPCS: 36415; 93005; 80053; 83690; 85025; 85610; 85730; 73030; 73130; 72125; 70450; 71260; 74177; 99285; Q9967

== ENCOUNTER 2022-07-07 14:45 | Inpatient (IN) | payer OTHER, MEDICARE ==
--- NOTE | 2022-07-07 15:46 | ED ---
Altered Mental Status HPI <López Franklin - Last Filed: 07/07/22 16:01> - General Source: patient, family, RN notes reviewed Mode of arrival: ambulatory Limitations: no limitations <Keily Garcia - Last Filed: 07/07/22 16:55> - General Chief Complaint: Altered Mental Status Stated Complaint: AMS Time Seen by Provider: 07/07/22 15:26 - History of Present Illness Initial Comments: Patient is a 67-year-old female brought to the emergency room by her sister with concerns regarding altered mental status that has not improved throughout the day today. Her sister reports that she has had multiple bouts of abnormal behavior throughout the week this week and last night she seemed normal however today she has been altered with out returned to normal. She is able to answer questions utilizing yes/no but is unable to make any other discernible statements. She reports sensory discrepancy between her right and left with her right side having decreased sensation. She required significant assistance to sit in the bed upon arrival from triage. Her sister denies any falls at home. She has a past medical history significant for paroxysmal A. fib, asthma, COPD, CHF, diabetes, hypertension, hyperlipidemia, GERD, fibromyalgia, PE, arthritis, diverticulosis, migraines, ovarian cancer, irritable bowel syndrome, gout, seizures, sleep apnea and multiple TIAs. (Keily Garcia) - Related Data Home Medications Medication Instructions Recorded Confirmed RX: Atorvastatin [Lipitor] 20 mg PO DAILY 02/12/21 06/11/22 RX: amLODIPine [Norvasc] 10 mg PO DAILY 04/29/21 06/11/22 RX: Citalopram Hydrobromide 10 mg PO DAILY 08/22/21 06/11/22 [CeleXA] RX: Empagliflozin [Jardiance] 10 mg PO DAILY 08/22/21 06/11/22 RX: Pantoprazole [Protonix] 40 mg PO DAILY 08/22/21 06/11/22 RX: Cranberry Fruit Concentrate 250 mg PO DAILY 05/24/22 06/11/22 [Azo Cranberry] RX: INSULIN ASPART (NovoLOG) 15 unit SQ AC-TID 05/24/22 06/11/22 [NovoLOG (formulary)] RX: Insulin Glargine [Lantus Vial] 25 unit SQ DAILY@1900 05/24/22 06/11/22 RX: lisinopriL [Zestril] 20 mg PO DAILY 05/24/22 06/11/22 Previous Rx's Medication Instructions Recorded RX: Ibuprofen [Motrin Ib] 800 mg PO Q8H PRN #20 tab 06/13/22 Allergies Allergy/AdvReac Type Severity Reaction Status Date / Time ampicillin Allergy Rash/Hives Verified 06/11/22 15:50 codeine Allergy Rash/Hives Verified 06/11/22 15:50 erythromycin base Allergy Rash/Hives Verified 06/11/22 15:50 indomethacin Allergy Per [facility] Verified 06/11/22 15:50 lidocaine Allergy Per [facility] Verified 06/11/22 15:50 lorazepam [From Ativan] Allergy Rash/Hives Verified 06/11/22 15:50 Penicillins Allergy Rash/Hives Verified 06/11/22 15:50 Sulfa (Sulfonamide Allergy Rash/Hives Verified 06/11/22 15:50 Antibiotics) Review of Systems ROS Other: All systems not noted in ROS Statement are negative. <López Franklin - Last Filed: 07/07/22 16:01> ROS Other: All systems not noted in ROS Statement are negative. <Keily Garcia - Last Filed: 07/07/22 16:55> ROS Statement: Those systems with pertinent positive or pertinent negative responses have been documented in the HPI. Past Medical History Past Medical History: Atrial Fibrillation, Asthma, Cancer, Chest Pain / Angina, Heart Failure, COPD, Diabetes Mellitus, Fibromyalgia, GERD/Reflux, Hyperlipidemia, Hypertension, Osteoarthritis (OA), Pneumonia, Pulmonary Embolus (PE), Rheumatoid Arthritis (RA), Seizure Disorder, Sleep Apnea/CPAP/BIPAP Additional Past Medical History / Comment(s): mult TIA-no effects, migraines, irregular heartbeat, varicose veins, no cpap used, oxygen PRN for migraines, hx ulcer, IBS, gout, UTI's, ovarian cancer, diverticulitis History of Any Multi-Drug Resistant Organisms: None Reported Past Surgical History: Appendectomy, Bariatric Surgery, Cholecystectomy, Hernia Repair, Hysterectomy, Joint Replacement, Orthopedic Surgery Additional Past Surgical History / Comment(s): rt hip replacement, rt shoulder rotator Past Anesthesia/Blood Transfusion Reactions: Previous Problems w/ Anesthesia Additional Past Anesthesia/Blood Transfusion Reaction / Comment(s): spray used to numb throat-had anaphylaxis(does not know name). slow to wake up Past Psychological History: Anxiety, Depression, PTSD Smoking Status: Never smoker Past Alcohol Use History: None Reported Past Drug Use History: None Reported - Past Family History Father Family Medical History: Cancer Additional Family Medical History / Comment(s): . Mother Family Medical History: Coronary Artery Disease (CAD), Dementia, Diabetes Mellitus, Thyroid Disorder Additional Family Medical History / Comment(s): diverticulitis, Sister(s) Family Medical History: Cancer <Keily Garcia - Last Filed: 07/07/22 16:55> General Exam Limitations: no limitations General appearance: alert, in no apparent distress Head exam: Present: atraumatic, normocephalic Eye exam: Present: normal appearance, PERRL. Absent: scleral icterus, conjunctival injection, nystagmus, periorbital swelling ENT exam: Present: normal exam, mucous membranes moist Neck exam: Present: normal inspection, full ROM Respiratory exam: Present: normal lung sounds bilaterally. Absent: respiratory distress, wheezes, rales, rhonchi, stridor Cardiovascular Exam: Present: regular rate, normal rhythm, normal heart sounds. Absent: systolic murmur, diastolic murmur, rubs, gallop, clicks GI/Abdominal exam: Present: soft, normal bowel sounds. Absent: distended, tenderness, guarding, rebound, rigid Extremities exam: Present: normal inspection. Absent: pedal edema, joint swelling Back exam: Present: normal inspection Neurological exam: Present: alert, other (NIH 14) Expanded Neurological exam: Present: protecting the airway Speech: Present: expressive aphasia Cranial nerves: Gag Reflex: Normal Upper motor neuron: Pronator Drift: Normal Motor strength exam: RUE: 4, LUE: 4, RLE: 2/1, LLE: 4 Eye Response: (4) open spontaneously Motor Response: (6) obeys commands Verbal Response: (3) inappropriate words [place] Total: 13 Psychiatric exam: Present: flat affect Skin exam: Present: warm, dry, intact, normal color. Absent: rash <Keily Garcia - Last Filed: 07/07/22 16:55> Course <López Franklin - Last Filed: 07/07/22 16:01> Vital Signs 07/07/22 07/07/22 07/07/22 15:12 15:25 15:40 Temperature 97.8 F Pulse Rate 64 64 70 Respiratory 20 18 18 Rate Blood Pressure 221/87 218/106 210/102 O2 Sat by Pulse 96 98 98 Oximetry 07/07/22 07/07/22 16:00 16:15 Temperature Pulse Rate 70 64 Respiratory 18 18 Rate Blood Pressure 221/101 231/98 O2 Sat by Pulse 98 98 Oximetry - Reevaluation(s) Reevaluation #1: 07/07/22 16:01 Patient was earlier evaluated by myself, Dr. Franklin. Last known well was within 24 hours. Patient is not considered a TPA candidate secondary to risks outweighing the benefit. Patient does have right leg weakness. Patient also has decreased sensation right arm and right leg. Patient does have difficulty with speech which is very limited. Case was discussed with Dr. Melvin with neural interventional who agrees patient is not a TPA candidate. (López Franklin) Medical Decision Making - Lab Data Result diagrams: 07/07/22 16:17 07/07/22 16:17 - Radiology Data Radiology results: report reviewed, image reviewed <Keily Garcia - Last Filed: 07/07/22 16:55> - Medical Decision Making 67-year-old female presenting to the emergency room with her sister with complaints of altered mental status with last known normal yesterday ev ening with expressive aphasia along with right-sided weakness noted. NIH scale 14. Due to last known normal greater than 4.5 hours ago not a TPA candidate. Code stroke called and CTA brain and neck ordered along with EKG, chest x-ray and labs. EKG shows sinus rhythm with left axis deviation. Nonspecific ST and T-wave abnormalities. Systolic blood pressure elevated 210s-220s initially now at 230s will give labetalol IV to maintain a blood pressure less than [address] Franklin involved in the case and has discussed the case with the neuro interventionalist Dr. Krishna. CBC normal. CMP reveals hyperglycemia with slight electrolyte derangement no need for IV or oral correction. Bilirubin slightly elevated 1.5 with normal LFTs. Alk phos slightly above normal but at baseline. No indication for further laboratory studies at this time. Will plan for admission to [facility] for altered mental status with consult to neurology. Dr. Franklin to discuss case with Dr. Torres. (Keily Garcia) - Lab Data Lab Results 07/07/22 07/07/22 07/07/22 Range/Units 16:17 16:17 16:17 WBC 6.4 (3.8-10.6) k/uL RBC 4.60 (3.80-5.40) m/uL Hgb 13.5 (11.4-16.0) gm/dL Hct 40.4 (34.0-46.0) % MCV 87.8 (80.0-100.0) fL MCH 29.3 (25.0-35.0) pg MCHC 33.4 (31.0-37.0) g/dL RDW 13.0 (11.5-15.5) % Plt Count 214 (150-450) k/uL MPV 8.8 Neutrophils % 70 % Lymphocytes % 19 % Monocytes % 5 % Eosinophils % 2 % Basophils % 1 % Neutrophils # 4.5 (1.3-7.7) k/uL Lymphocytes # 1.2 (1.0-4.8) k/uL Monocytes # 0.4 (0-1.0) k/uL Eosinophils # 0.1 (0-0.7) k/uL Basophils # 0.0 (0-0.2) k/uL PT 10.7 (9.0-12.0) sec INR 1.0 (<1.2) APTT 22.7 (22.0-30.0) sec Sodium 135 L (137-145) mmol/L Potassium 3.4 L (3.5-5.1) mmol/L Chloride 98 (98-107) mmol/L Carbon Dioxide 26 (22-30) mmol/L Anion Gap 11 mmol/L BUN 14 (7-17) mg/dL Creatinine 0.83 (0.52-1.04) mg/dL Est GFR (CKD-EPI)AfAm 85 (>60 ml/min/1.73 sqM) Est GFR (CKD-EPI)NonAf 74 (>60 ml/min/1.73 sqM) Glucose 356 H (74-99) mg/dL Calcium 9.5 (8.4-10.2) mg/dL Total Bilirubin 1.5 H (0.2-1.3) mg/dL AST 19 (14-36) U/L ALT 12 (4-34) U/L Alkaline Phosphatase 267 H (38-126) U/L Troponin I (0.000-0.034) ng/mL Total Protein 6.3 (6.3-8.2) g/dL Albumin 3.6 (3.5-5.0) g/dL 07/07/22 Range/Units 16:17 WBC (3.8-10.6) k/uL RBC (3.80-5.40) m/uL Hgb (11.4-16.0) gm/dL Hct (34.0-46.0) % MCV (80.0-100.0) fL MCH (25.0-35.0) pg MCHC (31.0-37.0) g/dL RDW (11.5-15.5) % Plt Count (150-450) k/uL MPV Neutrophils % % Lymphocytes % % Monocytes % % Eosinophils % % Basophils % % Neutrophils # (1.3-7.7) k/uL Lymphocytes # (1.0-4.8) k/uL Monocytes # (0-1.0) k/uL Eosinophils # (0-0.7) k/uL Basophils # (0-0.2) k/uL PT (9.0-12.0) sec INR (<1.2) APTT (22.0-30.0) sec Sodium (137-145) mmol/L Potassium (3.5-5.1) mmol/L Chloride (98-107) mmol/L Carbon Dioxide (22-30) mmol/L Anion Gap mmol/L BUN (7-17) mg/dL Creatinine (0.52-1.04) mg/dL Est GFR (CKD-EPI)AfAm (>60 ml/min/1.73 sqM) Est GFR (CKD-EPI)NonAf (>60 ml/min/1.73 sqM) Glucose (74-99) mg/dL Calcium (8.4-10.2) mg/dL Total Bilirubin (0.2-1.3) mg/dL AST (14-36) U/L ALT (4-34) U/L Alkaline Phosphatase (38-126) U/L Troponin I <0.012 (0.000-0.034) ng/mL Total Protein (6.3-8.2) g/dL Albumin (3.5-5.0) g/dL - EKG Data EKG Comments: Sinus rhythm, left axis deviation, nonspecific ST-T wave abnormalities, ventricular rate 79 bpm, WI interval 195 ms, QRS duration 80 ms, QT/QTC 344/370 ms, PRT axes 71, -38, 29 (Keily Garcia) - Radiology Data CT head without contrast CTA head and neck impression: 1. No acute intracranial pathology seen to. Very hypoplastic bilateral vertebral arteries. 3. Mild just under 50% narrowing proximal left ICA. 4. The intra-cranial vertebral arteries are severely hypoplastic. They may terminate as PICA branches. Severely hypoplastic mid to distal basilar artery is seen. Proximal basilar artery is not seen. Correlate for any chronic symptoms of vertebrobasilar insufficiency. 5. Additional atomic variation the right [employer] is supplied by left-sided persistent trigeminal artery. The left [employer]IST is supplied by persistent origin from the left ICA. 6. Intracranial ICAs intermittent and remainder of the anterior circulation are patent. (Keily Garcia) Disposition <López Franklin - Last Filed: 07/07/22 16:01> Time of Disposition: 16:48 <Keily Garcia - Last Filed: 07/07/22 16:55> Clinical Impression: Altered mental status Disposition: ADMITTED IP TO THIS HOSP Condition: Stable Referrals: Kevyn Luciano DO [Primary Care Provider] - 1-2 days
[2022-07-07 16:23] LABS: Basophils % (A) 1 %; Eosinophils # (A) 0.1 k/uL (0-0.7); Eosinophils % (A) 2 %; HCT 40.4 % (34.0-46.0); HGB 13.5 gm/dL (11.4-16.0); Lymphocytes # (A) 1.2 k/uL (1.0-4.8); Lymphocytes % (A) 19 %; MCH 29.3 pg (25.0-35.0); MCHC 33.4 g/dL (31.0-37.0); MCV 87.8 fL (80.0-100.0); Mean Platelet Volume 8.8; Monocytes # (A) 0.4 k/uL (0-1.0); Monocytes % (A) 5 %; Neutrophils # (A) 4.5 k/uL (1.3-7.7); Neutrophils % (A) 70 %; Platelet Count 214 k/uL (150-450); WBC 6.4 k/uL (3.8-10.6)
[2022-07-07 16:30] LABS: Potassium 3.4 mmol/L (3.5-5.1)
[2022-07-07 16:31] LABS: Albumin 3.6 g/dL (3.5-5.0); Calcium 9.5 mg/dL (8.4-10.2); Total Bilirubin 1.5 mg/dL (0.2-1.3); Total Protein 6.3 g/dL (6.3-8.2)
--- NOTE | 2022-07-07 16:32 | CT ---
EXAMINATION TYPE: CODE STROKE: CT head without contrast CODE STROKE: CTA head neck DATE OF EXAM: 07/07/2022 COMPARISON: 05/24/2022 HISTORY: 67-year-old female confusion, Neuro deficits, code stroke. AMS TECHNIQUE: Contiguous axial scanning of the head without contrast. Subsequent scanning of the head an d neck performed with IV Contrast, patient injected with 65 mL of Isovue 370. Coronal/sagittal MIP re constructions performed. CT DLP: 1670.9 mGycm Automated exposure control for dose reduction was used. FINDINGS: Noncontrast head: No evidence for acute intracranial hemorrhage, acute ischemic change, mass, mass effect, midline shif t, or extra-axial fluid collection. No hydrocephalus. No effacement of cerebral sulci or basal subara chnoid cisterns. Barragan-white matter differentiation is maintained. Benign hyperostosis frontalis interna noted. Mild patchy periventricular white matter hypodensities i n both cerebral hemispheres. There is slight 3 mm of right-sided cerebellar tonsillar ectopia. Slight rightward nasal septal deviation. Paranasal sinuses and mastoid air cells well pneumatized. Or bits and globes are intact. CTA neck: Nonspecific small groundglass focus posterior right upper lobe, axial image 18. Possible infectious/i nflammatory focus. Bovine configuration to the aortic arch. Both vertebral arteries appear hypoplastic, the right more so. Otherwise, patent throughout the cours e. The right common and internal carotid arteries are widely patent bilateral criteria. Left common carotid artery is patent. Moderate atherosclerotic calcification at the left carotid bifu rcation. This results in mild, just under 50% narrowing at the left carotid bulb by NASCET criteria. Remainder of the left ICA is patent. CTA brain: The bilateral C4 segment vertebral arteries may terminate as PICA branches. A very diminutive distal basilar artery is seen. There is congenital variation with the right [employer] CONCRETE IRONWORKER is supplied by a left-sided persistent trigeminal ar reynold. This anastomoses with the very diminutive distal basilar artery. The left [employer] CONCRETE IRONWORKER is supplied by persistent origin from the left ICA. Mild atherosclerotic calcification supraclinoid left ICA. Hypoplastic A1 segment right anterior cereb ral artery. Otherwise, the anterior circulation is patent. No aneurysmal change is seen. IMPRESSION: CT BRAIN: 1. NO ACUTE INTRACRANIAL PATHOLOGY SEEN. CTA NECK: 2. VERY HYPOPLASTIC BILATERAL VERTEBRAL ARTERIES. 3. MILD, JUST UNDER 50% NARROWING PROXIMAL LEFT ICA. CTA HEAD: 4. THE INTRACRANIAL VERTEBRAL ARTERIES ARE SEVERELY HYPOPLASTIC. THEY MAY TERMINATE PICA BRANCHES. A SEVERELY HYPOPLASTIC MID TO DISTAL BASILAR ARTERY IS SEEN. PROXIMAL BASILAR ARTERY NOT SEEN. CORRE LATE FOR ANY CHRONIC SYMPTOMS OF VERTEBROBASILAR INSUFFICIENCY. 5. ADDITIONAL ANATOMIC VARIATION: THE RIGHT [employer] CONCRETE IRONWORKER IS SUPPLIED BY A LEFT-SIDED PERSISTENT TRIGEMINAL ART ALFRED. THE LEFT PRE[employer] CONCRETE IRONWORKER IS SUPPLIED BY PERSISTENT ORIGIN FROM THE LEFT ICA. 6. THE INTRACRANIAL ICA's AND REMAINDER OF THE ANTERIOR CIRCULATION ARE PATENT.
[2022-07-07 16:33] LABS: Partial Thromboplastin Time 22.7 sec (22.0-30.0); Prothrombin Time 10.7 sec (9.0-12.0)
[2022-07-07] MEDS ORDERED: NALOXONE 0.4 MG/ML 1 ML VIAL IV PRN (16:42)
[2022-07-07] MEDS: LABETALOL 5 MG/ML VIAL MDV IVP STA ×2 (16:56→17:43)
--- NOTE | 2022-07-07 17:47 | XR ---
EXAMINATION TYPE: XR chest 2V DATE OF EXAM: 07/07/2022 COMPARISON: 08/22/2021 HISTORY: Altered mental status TECHNIQUE: FINDINGS: There is no heart failure nor confluent pneumonic infiltrate. Costophrenic angles are clear . There are no hilar masses. There is slight coarsening of interstitial markings. IMPRESSION: Increased interstitial markings compared to last exam. No pulmonary consolidation or hear t failure.
[2022-07-07] MEDS ORDERED: LABETALOL 5 MG/ML VIAL MDV IVP STA (17:58)
[2022-07-07] MEDS ORDERED: ONDANSETRON 4 MG/2 ML VIAL IVP STA (20:08)
[2022-07-08 06:03] LABS: Glucose,Whole Blood 309 mg/dL (70-110)
[2022-07-08] MEDS ORDERED: POTASSIUM CHLORIDE ER 20 MEQ TAB.ER PO STA (10:52)
[2022-07-08 11:41] LABS: Glucose,Whole Blood 344 mg/dL (70-110)
[2022-07-08] MEDS: INSULIN ASPART (NovoLOG) 100 UNIT/ML VIAL SQ SCH ×5 (12:16→20:09)
[2022-07-08] MEDS: CITALOPRAM HYDROBROMIDE 10 MG TAB PO SCH (12:18)
[2022-07-08] MEDS: lisinopriL 20 MG TAB PO SCH (12:18)
[2022-07-08] MEDS: ATORVASTATIN 20 MG TAB PO SCH (12:18)
[2022-07-08] MEDS: PANTOPRAZOLE 40 MG TABLET PO SCH (12:18)
[2022-07-08] MEDS: amLODIPine 10 MG TAB PO SCH (12:18)
[2022-07-08 13:09] LABS: African American GFR (CKD) >90 (>60 ml/min/1.73 sqM); Anion Gap 10 mmol/L; Blood Urea Nitrogen 16 mg/dL (7-17); Calcium 8.8 mg/dL (8.4-10.2); Carbon Dioxide 27 mmol/L (22-30); Chloride 99 mmol/L (98-107); Glucose 368 mg/dL (74-99); Non-African American GFR(CKD) 85 (>60 ml/min/1.73 sqM); Potassium 3.6 mmol/L (3.5-5.1); Sodium 136 mmol/L (137-145)
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
[2022-07-08 17:22] LABS: Glucose,Whole Blood 116 mg/dL (70-110)
[2022-07-08] MEDS: HEPARIN SODIUM,PORCINE/PF 5,000 UNIT/0.5 ML SYRINGE SQ SCH ×2 (17:25→23:17)
[2022-07-08 19:42] LABS: Glucose,Whole Blood 170 mg/dL (70-110)
[2022-07-08] MEDS: INSULIN DETEMIR (LEVEMIR) 100 UNIT/ML SYR SQ SCH (20:09)
--- NOTE | 2022-07-08 22:22 | P.HPIM ---
History of Present Illness H&P Date: 07/08/22 Chief Complaint: Status altered mental status Patient is a 67-year-old female with a known history of hypertension, diabetes type 2 insulin-dependent, fibromyalgia, osteoarthritis, history of PE, atrial fibrillation currently not on any anticoagulation, obstructive sleep apnea, IBS, history of ovarian cancer, anxiety/depression/PTSD was brought to the hospital by her daughter due to altered mental status. Patient states that she had a fall on Sunday and reports when dog pulled the leash at her brother's house. She was able to get up and since then she has been having left hip pain and was able to walk for couple days. Family states she became more confused and yesterday her sister came and to visit her and she could not recognize her. Patient was brought to the hospital due to altered mental status. She has been having multiple bouts of abnormal behavior thr oughout the week. Patient is also complaining of left hand mostly than right. Denies any headache. Illnesses. Denies any cough or sputum production. No chest pain or shortness with. No palpitations. Chest x-ray showed increased interstitial markings compared to last exam. No pulmonary consolidation or heart failure. EKG showed sinus rhythm with left axis deviation. CT angiogram of the head and neck showed no acute intracranial pathology in the brain. CT neck showed very hypoplastic bilateral vertebral arteries. Mild just under 50% narrowing proximal left ICA. Laboratory data showed WBC 6.4 hemoglobin 13.5 and platelets 214 Sodium 134 potassium 3.4 chloride 96 bicarb is 26 BUN 49 creatinine 0.83 and blood sugar is 356 Alk phos 267 total bilirubin level is 1.5 AST 19 ALT 12 and albumin 3.6. Review of Systems Constitutional: Patient denies any fever or chills . no Generalized weakness. Abdomen: Patient denied any nausea or vomiting or abd. pain Cardiovascular: Patient denies any chest pain or short of breath no palpitations. Respiratory: patient denied any cough . no sputum production. No shortness of breath Neurologic: Patient denied any numbness or tingling headache. Musculoskeletal: Patient denies any complaints of joint swelling or deformity. Left knee pain. Complete review of systems could not be obtained from the patient. Past Medical History Past Medical History: Atrial Fibrillation, Asthma, Cancer, Chest Pain / Angina, Heart Failure, COPD, Diabetes Mellitus, Fibromyalgia, GERD/Reflux, Hyp erlipidemia, Hypertension, Osteoarthritis (OA), Pneumonia, Pulmonary Embolus (PE), Rheumatoid Arthritis (RA), Seizure Disorder, Sleep Apnea/CPAP/BIPAP Additional Past Medical History / Comment(s): mult TIA-no effects, migraines, irregular heartbeat, varicose veins, no cpap used, oxygen PRN for migraines, hx ulcer, IBS, gout, UTI's, ovarian cancer, diverticulitis History of Any Multi-Drug Resistant Organisms: None Reported Past Surgical History: Appendectomy, Bariatric Surgery, Cholecystectomy, Hernia Repair, Hysterectomy, Joint Replacement, Orthopedic Surgery Additional Past Surgical History / Comment(s): rt hip replacement, rt shoulder rotator Past Anesthesia/Blood Transfusion Reactions: Previous Problems w/ Anesthesia Additional Past Anesthesia/Blood Transfusion Reaction / Comment(s): spray used to numb throat-had anaphylaxis(does not know name). slow to wake up Past Psychological History: Anxiety, Depression, PTSD Additional Psychological History / Comment(s): . Smoking Status: Never smoker Past Alcohol Use History: None Reported Past Drug Use History: None Reported - Past Family History Father Family Medical History: Cancer Additional Family Medical History / Comment(s): . Mother Family Medical History: Coronary Artery Disease (CAD), Dementia, Diabetes Mellitus, Thyroid Disorder Additional Family Medical History / Comment(s): diverticulitis, Sister(s) Family Medical History: Cancer Medications and Allergies Home Medications Medication Instructions Recorded Confirmed Type RX: Atorvastatin [Lipitor] 20 mg PO DAILY 02/12/21 07/07/22 History RX: amLODIPine [Norvasc] 10 mg PO DAILY 04/29/21 07/07/22 History RX: Citalopram Hydrobromide 10 mg PO DAILY 08/22/21 07/07/22 History [CeleXA] RX: Empagliflozin [Jardiance] 10 mg PO DAILY 08/22/21 07/07/22 History RX: Pantoprazole [Protonix] 40 mg PO DAILY 08/22/21 07/07/22 History RX: Cranberry Fruit Concentrate 250 mg PO DAILY 05/24/22 07/07/22 History [Azo Cranberry] RX: INSULIN ASPART (NovoLOG) 15 unit SQ AC-TID 05/24/22 07/07/22 History [NovoLOG (formulary)] RX: Insulin Glargine [Lantus Vial] 25 unit SQ DAILY@1900 05/24/22 07/07/22 History RX: lisinopriL [Zestril] 20 mg PO DAILY 05/24/22 07/07/22 History RX: Ibuprofen [Motrin Ib] 800 mg PO Q8H PRN #20 tab 06/13/22 07/07/22 Rx Allergies Allergy/AdvReac Type Severity Reaction Status Date / Time ampicillin Allergy Rash/Hives Verified 07/07/22 17:22 codeine Allergy Rash/Hives Verified 07/07/22 17:22 erythromycin base Allergy Rash/Hives Verified 07/07/22 17:22 indomethacin Allergy [facility] Verified 07/07/22 17:22 lidocaine Allergy Per [facility] Verified 07/07/22 17:22 lorazepam [From Ativan] Allergy Rash/Hives Verified 07/07/22 17:22 Penicillins Allergy Rash/Hives Verified 07/07/22 17:22 Sulfa (Sulfonamide Allergy Rash/Hives Verified 07/07/22 17:22 Antibiotics) Physical Exam Vitals: Vital Signs Temp Pulse Pulse Resp BP BP Pulse Ox 07/08/22 07:51 98.0 F 78 16 219/87 97 07/08/22 04:00 55 L 16 191/76 96 07/08/22 00:00 65 16 137/61 95 07/07/22 20:51 98.2 F 51 L 16 211/91 96 07/07/22 19:13 52 L 18 208/97 96 07/07/22 17:55 55 L 18 242/97 97 07/07/22 16:59 52 L 07/07/22 16:45 53 L 18 211/96 97 07/07/22 16:15 64 18 231/98 98 07/07/22 16:00 70 18 221/101 98 07/07/22 15:40 70 18 210/102 98 07/07/22 15:25 64 18 218/106 98 07/07/22 15:12 97.8 F 64 20 221/87 96 Intake and Output 07/07/22 07/08/22 07/08/22 22:59 06:59 14:59 Intake Total 485 323 Balance 485 323 Intake: IV 5 Invasive Line 1 5 Oral 485 318 Other: Voiding Method Toilet Toilet Toilet # Voids 1 Weight 74.843 kg PHYSICAL EXAMINATION: Patient is lying in the bed comfortably, no acute distress, awake alert and oriented but seems to be confused... HEENT: Normocephalic. Neck is supple. Pupils reactive. Nostrils clear. Oral cavity is moist. Neck reveals no JVD, carotid bruits, or thyromegaly. CHEST EXAMINATION: Trachea is central. Symmetrical expansion. Lung lopez clear to auscultation and percussion. CARDIAC: Normal S1, S2 with no gallops. No murmurs ABDOMEN: Soft. Bowel sounds present. Nontender. No organomegaly. No abdominal bruits. Extremities: reveal no edema. No clubbing or cyanosis Neurologically awake, alert, oriented x2. Patient also left upper extremity weakness compared to right. Skin: No rash or skin lesions. Psychiatric: Coperative. Nonsuicidal, Musculoskeletal: No joint swelling or deformity. Normal range of motion. Results CBC & Chem 7: 07/07/22 16:17 07/08/22 11:57 Labs: Abnormal Lab Results - Last 24 Hours (Table) 07/07/22 07/08/22 Range/Units 16:17 06:01 Sodium 135 L (137-145) mmol/L Potassium 3.4 L (3.5-5.1) mmol/L Glucose 356 H (74-99) mg/dL POC Glucose (mg/dL) 309 H (70-110) mg/dL Total Bilirubin 1.5 H (0.2-1.3) mg/dL Alkaline Phosphatase 267 H (38-126) U/L Thrombosis Risk Factor Assmnt - DVT/VTE Prophylaxis DVT/VTE Prophylaxis: Pharmacologic Prophylaxis ordered Assessment and Plan Assessment: Altered mental status possible metabolic encephalopathy. Left-sided weakness possible acute CVA. Hyperglycemia with uncontrolled diabetes type 2 Hypertensive urgency on admission History of paroxysmal atrial fibrillation not on any anticoagulation Hyperlipidemia Fibromyalgia GERD Osteoarthritis Summary arthritis History of PE Obstructive sleep apnea not on CPAP Anxiety/depression PTSD DVT prophylaxis Heparin subcu Plan: Patient will continue on telemetry monitoring. Patient had CT head and CT angio of the head and neck which is negative for any acute process. MRI of the brain was ordered for any ischemic process. Neurology is on board. Complete neurological work-up including TSH B12 folate and A1c levels and 2D echocardiogram was ordered. X-ray of the left hip and pelvis was ordered.. UA Chronic pain management and follow-up CBC and BMP tomorrow. Prognosis guarded. PT OT will be consulted. Time with Patient: Greater than 30
--- NOTE | 2022-07-09 00:50 | XR ---
EXAMINATION TYPE: XR femur RT DATE OF EXAM: 07/08/2022 COMPARISON: 08/22/2021 HISTORY: Fall. Hip pain TECHNIQUE: 4 views FINDINGS: There is right hip prosthesis. There is plate with screws fixating the femoral shaft. There is right knee prosthesis. No acute fracture seen. IMPRESSION: There is plate with screws fixing the supracondylar fracture of the distal femur. No acut e fracture seen. No complicating process.
--- NOTE | 2022-07-09 00:51 | XR ---
EXAMINATION TYPE: XR pelvis AP view DATE OF EXAM: 07/08/2022 COMPARISON: NONE HISTORY: Pain TECHNIQUE: Single view FINDINGS: The pelvic ring is intact. There is right hip prosthesis. There is contrast in the urinary bladder. Sacroiliac joints are intact. No acute fracture seen. IMPRESSION: No acute abnormality of the pelvis.
[2022-07-09 05:58] LABS: Glucose,Whole Blood 103 mg/dL (70-110)
[2022-07-09] MEDS: INSULIN ASPART (NovoLOG) 100 UNIT/ML VIAL SQ SCH ×7 (06:07→20:38)
[2022-07-09] MEDS: PANTOPRAZOLE 40 MG TABLET PO SCH (06:11)
[2022-07-09 07:25] LABS: Basophils # (A) 0.1 k/uL (0-0.2); Basophils % (A) 1 %; Eosinophils # (A) 0.2 k/uL (0-0.7); Eosinophils % (A) 3 %; HCT 41.9 % (34.0-46.0); HGB 14.2 gm/dL (11.4-16.0); Lymphocytes # (A) 1.8 k/uL (1.0-4.8); Lymphocytes % (A) 25 %; MCH 29.8 pg (25.0-35.0); MCHC 33.8 g/dL (31.0-37.0); MCV 88.2 fL (80.0-100.0); Mean Platelet Volume 9.7; Monocytes # (A) 0.6 k/uL (0-1.0); Monocytes % (A) 8 %; Neutrophils # (A) 4.4 k/uL (1.3-7.7); Neutrophils % (A) 62 %; Platelet Count 218 k/uL (150-450); RBC 4.75 m/uL (3.80-5.40); RDW 13.1 % (11.5-15.5); WBC 7.2 k/uL (3.8-10.6)
[2022-07-09] MEDS: CITALOPRAM HYDROBROMIDE 10 MG TAB PO SCH (08:34)
[2022-07-09] MEDS: ATORVASTATIN 20 MG TAB PO SCH (08:34)
[2022-07-09] MEDS: lisinopriL 20 MG TAB PO SCH (08:34)
[2022-07-09] MEDS: amLODIPine 10 MG TAB PO SCH (08:34)
[2022-07-09] MEDS: HEPARIN SODIUM,PORCINE/PF 5,000 UNIT/0.5 ML SYRINGE SQ SCH ×3 (08:34→23:03)
[2022-07-09 08:48] LABS: African American GFR (CKD) >90 (>60 ml/min/1.73 sqM); Anion Gap 7 mmol/L; Blood Urea Nitrogen 17 mg/dL (7-17); Carbon Dioxide 27 mmol/L (22-30); Chloride 101 mmol/L (98-107); Glucose 146 mg/dL (74-99); Non-African American GFR(CKD) 83 (>60 ml/min/1.73 sqM); Potassium 3.9 mmol/L (3.5-5.1); Sodium 135 mmol/L (137-145)
[2022-07-09 11:28] LABS: Glucose,Whole Blood 191 mg/dL (70-110)
[2022-07-09 16:31] LABS: Amorphous Sediment,Urine Rare /hpf; Appearance,Urine Cloudy (Clear); Bacteria,Urine Few /hpf; Bilirubin,Urine Negative (Negative); Blood,Urine Negative (Negative); Color,Urine Yellow; Glucose,Urine (UA) Trace (Negative); Hyaline Casts,Urine 1 /lpf (0-2); Ketones,Urine 1+ (Negative); Leukocyte Esterase,Urine Trace (Negative); Mucus,Urine Rare /hpf; Nitrite,Urine Negative (Negative); PH, Urine 5.5 (5.0-8.0); Protein,Urine 2+ (Negative); RBC,Urine 3 /hpf (0-5); Specific Gravity,Urine 1.013 (1.001-1.035); Squamous Epithelial Cell,Urine <1 /hpf (0-4); WBC,Urine 4 /hpf (0-5)
[2022-07-09 16:53] LABS: Glucose,Whole Blood 105 mg/dL (70-110)
[2022-07-09 16:53] LABS: Amphetamine Screen,Urine Not Detected (NotDetected); Barbiturate Screen,Urine Not Detected (NotDetected); Benzodiazepines Screen,Urine Not Detected (NotDetected); Cocaine Screen,Urine Not Detected (NotDetected); Methadone Screen, Urine Not Detected (NotDetected); Opiate Screen,Urine Not Detected (NotDetected); Oxycodone Screen, Urine Not Detected (NotDetected); Phencyclidine Screen,Urine Not Detected (NotDetected); Tricyclic Antidepressant,Urine Not Detected (NotDetected); Urn Cannabinoid Scrn Not Detected (NotDetected)
[2022-07-09] MEDS: carvediloL 3.125 MG TAB PO SCH (17:47)
[2022-07-09 20:39] LABS: Glucose,Whole Blood 149 mg/dL (70-110)
[2022-07-09] MEDS: INSULIN DETEMIR (LEVEMIR) 100 UNIT/ML SYR SQ SCH (20:42)
[2022-07-09] MEDS: amLODIPine 5 MG TAB PO SCH (20:42)
--- NOTE | 2022-07-10 00:20 | P.PN ---
Subjective Progress Note Date: 07/09/22 Patient is a 67-year-old female with a known history of hypertension, diabetes type 2 insulin-dependent, fibromyalgia, osteoarthritis, history of PE, atrial fibrillation currently not on any anticoagulation, obstructive sleep apnea, IBS, history of ovarian cancer, anxiety/depression/PTSD was brought to the hospital by her daughter due to altered mental status. Patient states that she had a fall on Sunday and reports when dog pulled the leash at her brother's house. She was able to get up and since then she has been having left hip pain and was able to walk for couple days. Family states she became more confused and yesterday her sister came and to visit her and she could not recognize her. Patient was brought to the hospital due to altered mental status. She has been having multiple bouts of abnormal behavior throughout the week. Patient is also complaining of left hand mostly than right . Denies any headache. Illnesses. Denies any cough or sputum production. No chest pain or shortness with. No palpitations. Chest x-ray showed increased interstitial markings compared to last exam. No pulmonary consolidation or heart failure. EKG showed sinus rhythm with left axis deviation. CT angiogram of the head and neck showed no acute intracranial pathology in the brain. CT neck showed very hypoplastic bilateral vertebral arteries. Mild just under 50% narrowing proximal left ICA. Laboratory data showed WBC 6.4 hemoglobin 13.5 and platelets 214 Sodium 134 potassium 3.4 chloride 96 bicarb is 26 BUN 49 creatinine 0.83 and blood sugar is 356 Alk phos 267 total bilirubin level is 1.5 AST 19 ALT 12 and albumin 3.6. 07/09/2022 Patient is currently sitting in the chair comfortably. Awake alert and oriented. Left upper extremity weakness is better. Otherwise patient mentation status is much improved now. Currently on room air. No nausea vomiting abdominal diarrhea. Tolerating oral diet. No cough or sputum production. Afebrile. MRI of the brain was ordered to evaluate for acute ischemia. Neurology is on board. Follow-up stroke work-up. Level data showed sodium 130 potassium 3.9 chloride 101 bicarb is 27 BUN 17 and creatinine 0.75 and blood sugar 146. UDS is negative. X-ray of the hip which showed there is plate with screws fixing to the supracondylar fracture of the distal femur. No acute fracture seen. No complicating Process. Right hip process in place. Current medications reviewed. Objective - Vital Signs Vital signs: Vital Signs Temp 98.1 F 07/09/22 16:16 Pulse 86 07/09/22 16:16 Resp 18 07/09/22 16:16 BP 181/84 07/09/22 16:16 Pulse Ox 96 07/09/22 16:16 FiO2 Intake & Output 07/08/22 07/09/22 07/09/22 18:59 06:59 18:59 Intake Total 428 485 240 Output Total 475 Balance 428 485 -235 Intake: IV 10 Invasive Line 1 10 Oral 418 485 240 Output: Urine 475 Other: Voiding Method Toilet Toilet Toilet # Voids 1 1 - Exam PHYSICAL EXAMINATION: Patient is lying in the bed comfortably, no acute distress, awake alert and oriented but seems to be confused... HEENT: Normocephalic. Neck is supple. Pupils reactive. Nostrils clear. Oral cavity is moist. Neck reveals no JVD, carotid bruits, or thyromegaly. CHEST EXAMINATION: Trachea is central. Symmetrical expansion. Lung lopez clear to auscultation and percussion. CARDIAC: Normal S1, S2 with no gallops. No murmurs ABDOMEN: Soft. Bowel sounds present. Nontender. No organomegaly. No abdominal bruits. Extremities: reveal no edema. No clubbing or cyanosis Neurologically awake, alert, oriented x2. Patient also left upper extremity weakness compared to right. Skin: No rash or skin lesions. Psychiatric: Coperative. Nonsuicidal, Musculoskeletal: No joint swelling or deformity. Normal range of motion. - Labs CBC & Chem 7: 07/09/22 06:49 07/09/22 08:16 Labs: Abnormal Lab Results - Last 24 Hours (Table) 07/08/22 07/08/22 07/08/22 Range/Units 15:04 16:57 19:39 Sodium (137-145) mmol/L Glucose (74-99) mg/dL POC Glucose (mg/dL) 116 H 170 H (70-110) mg/dL Vitamin B12 169.0 L (200.0-944.0) pg/mL Urine Appearance (Clear) Urine Protein (Negative) Urine Glucose (UA) (Negative) Urine Ketones (Negative) Ur Leukocyte Esterase (Negative) Amorphous Sediment (None) /hpf Urine Bacteria (None) /hpf Urine Mucus (None) /hpf 07/09/22 07/09/22 07/09/22 Range/Units 08:16 11:18 16:21 Sodium 135 L (137-145) mmol/L Glucose 146 H (74-99) mg/dL POC Glucose (mg/dL) 191 H (70-110) mg/dL Vitamin B12 (200.0-944.0) pg/mL Urine Appearance Cloudy H (Clear) Urine Protein 2+ H (Negative) Urine Glucose (UA) Trace H (Negative) Urine Ketones 1+ H (Negative) Ur Leukocyte Esterase Trace H (Negative) Amorphous Sediment Rare H (None) /hpf Urine Bacteria Few H (None) /hpf Urine Mucus Rare H (None) /hpf Assessment and Plan Assessment: Altered mental status possible metabolic encephalopathy. Left-sided weakness possible acute CVA. improving s/p fall Hyperglycemia with uncontrolled diabetes type 2 Hypertensive urgency on admission History of paroxysmal atrial fibrillation not on any anticoagulation Hyperlipidemia Fibromyalgia GERD Osteoarthritis Summary arthritis History of PE Obstructive sleep apnea not on CPAP Anxiety/depression PTSD DVT prophylaxis Heparin subcu Plan: Patient will continue on telemetry monitoring. Patient had CT head and CT angio of the head and neck which is negative for any acute process. MRI of the brain was ordered for any ischemic process. Neurology is on board. Complete neurological work-up including TSH B12 folate and A1c levels and 2D echocardiogram was ordered. X-ray of the left hip and pelvis was ordered..X- rays showed no acute fracture or dislocation. Prosthetic joints in place. UA negative. Chronic pain management and follow-up CBC and BMP tomorrow. Prognosis guarded. PT OT will be consulted. Time with Patient: Greater than 30
[2022-07-10 06:22] LABS: Glucose,Whole Blood 138 mg/dL (70-110)
[2022-07-10] MEDS: INSULIN ASPART (NovoLOG) 100 UNIT/ML VIAL SQ SCH ×6 (06:22→21:34)
[2022-07-10] MEDS: PANTOPRAZOLE 40 MG TABLET PO SCH (06:45)
[2022-07-10] MEDS: carvediloL 3.125 MG TAB PO SCH ×2 (06:45→17:13)
[2022-07-10] MEDS: amLODIPine 5 MG TAB PO SCH ×2 (09:50→21:34)
[2022-07-10] MEDS: ATORVASTATIN 20 MG TAB PO SCH (09:50)
[2022-07-10] MEDS: CITALOPRAM HYDROBROMIDE 10 MG TAB PO SCH (09:50)
[2022-07-10] MEDS: lisinopriL 20 MG TAB PO SCH (09:50)
[2022-07-10] MEDS: HEPARIN SODIUM,PORCINE/PF 5,000 UNIT/0.5 ML SYRINGE SQ SCH ×2 (09:51→17:12)
[2022-07-10 10:22] LABS: Basophils # (A) 0.1 k/uL (0-0.2); Basophils % (A) 1 %; Eosinophils # (A) 0.2 k/uL (0-0.7); Eosinophils % (A) 2 %; HCT 45.9 % (34.0-46.0); HGB 15.1 gm/dL (11.4-16.0); Lymphocytes # (A) 1.7 k/uL (1.0-4.8); Lymphocytes % (A) 18 %; MCH 28.9 pg (25.0-35.0); MCHC 32.9 g/dL (31.0-37.0); MCV 87.6 fL (80.0-100.0); Mean Platelet Volume 9.1; Monocytes # (A) 0.6 k/uL (0-1.0); Monocytes % (A) 7 %; Neutrophils # (A) 6.5 k/uL (1.3-7.7); Neutrophils % (A) 70 %; Platelet Count 271 k/uL (150-450); RBC 5.24 m/uL (3.80-5.40); RDW 13.3 % (11.5-15.5); WBC 9.2 k/uL (3.8-10.6)
[2022-07-10 10:40] LABS: African American GFR (CKD) >90 (>60 ml/min/1.73 sqM); Anion Gap 10 mmol/L; Blood Urea Nitrogen 15 mg/dL (7-17); Calcium 9.6 mg/dL (8.4-10.2); Carbon Dioxide 29 mmol/L (22-30); Chloride 99 mmol/L (98-107); Glucose 104 mg/dL (74-99); Non-African American GFR(CKD) 82 (>60 ml/min/1.73 sqM); Potassium 3.7 mmol/L (3.5-5.1); Sodium 138 mmol/L (137-145)
[2022-07-10 11:47] LABS: Glucose,Whole Blood 55 mg/dL (70-110)
[2022-07-10 11:48] LABS: Glucose,Whole Blood 51 mg/dL (70-110)
[2022-07-10 12:06] LABS: Glucose,Whole Blood 84 mg/dL (70-110)
[2022-07-10 12:31] VITALS: BMI 32.2
[2022-07-10] MEDS ORDERED: DEXTROSE 50% SYRINGE 50 ML IVP PRN ×2 (15:45)
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
[2022-07-10 16:50] LABS: Glucose,Whole Blood 159 mg/dL (70-110)
[2022-07-10 20:22] LABS: Glucose,Whole Blood 158 mg/dL (70-110)
[2022-07-10] MEDS: ASPIRIN 81 MG PO SCH (21:33)
[2022-07-10] MEDS: CYANOCOBALAMIN 1,000 MCG/ML 1 ML VIAL IM SCH (21:33)
[2022-07-10] MEDS: INSULIN DETEMIR (LEVEMIR) 100 UNIT/ML SYR SQ SCH (21:34)
[2022-07-11] MEDS: HEPARIN SODIUM,PORCINE/PF 5,000 UNIT/0.5 ML SYRINGE SQ SCH ×3 (00:32→17:06)
[2022-07-11 06:28] LABS: Glucose,Whole Blood 66 mg/dL (70-110)
[2022-07-11] MEDS: INSULIN ASPART (NovoLOG) 100 UNIT/ML VIAL SQ SCH ×4 (06:41→20:27)
[2022-07-11 06:45] LABS: Glucose,Whole Blood 104 mg/dL (70-110)
[2022-07-11] MEDS: carvediloL 3.125 MG TAB PO SCH ×2 (06:52→17:06)
[2022-07-11] MEDS: PANTOPRAZOLE 40 MG TABLET PO SCH (06:52)
[2022-07-11] MEDS: lisinopriL 20 MG TAB PO SCH (08:24)
[2022-07-11] MEDS: ASPIRIN 81 MG PO SCH (08:24)
[2022-07-11] MEDS: CITALOPRAM HYDROBROMIDE 10 MG TAB PO SCH (08:24)
[2022-07-11] MEDS: CYANOCOBALAMIN 1,000 MCG/ML 1 ML VIAL IM SCH (08:24)
[2022-07-11] MEDS: amLODIPine 5 MG TAB PO SCH ×2 (08:24→20:25)
[2022-07-11] MEDS: ATORVASTATIN 20 MG TAB PO SCH (08:24)
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
[2022-07-11 11:43] LABS: Glucose,Whole Blood 148 mg/dL (70-110)
--- NOTE | 2022-07-11 15:01 | MR ---
MR brain without contrast HISTORY: Neuro deficit, cerebrovascular accident Multiplanar multisequence imaging obtained through the brain. Correlation to prior MR brain 10/31/2019 There is no restricted diffusion. Hyperintensity within the hayley, periventricular, pericallosal and s ubcortical white matter on inversion recovery T2-weighted sequences shows a similar appearance to juli or exam, the pericallosal hyperintensity may progressed in the interval however. There is no hemorrha ge or hydrocephalus. There are expected vascular flow voids. Corpus callosum, pituitary, cervical med ullary junction, cerebellopontine angles are normal. Orbits show symmetric appearance. Mild mucosal d isease present in the ethmoid air cells. IMPRESSION: No subacute ischemia is evident. Consider demyelinating disease such as multiple sclerosi s in addition to chronic small vessel ischemia
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
[2022-07-11 16:55] LABS: Glucose,Whole Blood 237 mg/dL (70-110)
[2022-07-11 20:13] LABS: Glucose,Whole Blood 296 mg/dL (70-110)
[2022-07-11] MEDS: INSULIN DETEMIR (LEVEMIR) 100 UNIT/ML SYR SQ SCH (20:26)
[2022-07-12 00:25] VITALS: RESP 16
[2022-07-12] MEDS: HEPARIN SODIUM,PORCINE/PF 5,000 UNIT/0.5 ML SYRINGE SQ SCH ×2 (02:01→09:03)
--- NOTE | 2022-07-12 03:38 | EEG ---
ELECTROENCEPHALOGRAM REPORT PREAMBLE: This is a 67-year-old female with a previous history of seizure disorder, came with episode of seizure versus TIA. EEG FINDINGS: This is a 21-channel digital EEG recorded with video component, utilizing 10/20 international system with referential and bipolar montages. Background consists of well developed, well regulated moderate voltage activity in 9 hertz alpha. Background is posterior dominant and reactive to eye opening and closing. Photic driving response was not clearly seen. Some drowsiness was seen with appearance of bilaterally symmetric theta frequency rhythm. Deeper stages of sleep were not seen. No focal or generalized epileptiform activity was seen. EKG channel showed no obvious arrhythmia. IMPRESSION: This is a normal awake and drowsy EEG. No focal, lateralized, or epileptiform activity was seen. MMODL / IJN: [id number] /
[2022-07-12 06:10] LABS: Glucose,Whole Blood 141 mg/dL (70-110)
[2022-07-12] MEDS: PANTOPRAZOLE 40 MG TABLET PO SCH (06:42)
[2022-07-12] MEDS: carvediloL 3.125 MG TAB PO SCH (06:42)
[2022-07-12] MEDS: INSULIN ASPART (NovoLOG) 100 UNIT/ML VIAL SQ SCH ×2 (06:42→12:18)
[2022-07-12] MEDS: amLODIPine 5 MG TAB PO SCH (09:04)
[2022-07-12] MEDS: CITALOPRAM HYDROBROMIDE 10 MG TAB PO SCH (09:04)
[2022-07-12] MEDS: ATORVASTATIN 20 MG TAB PO SCH (09:04)
[2022-07-12] MEDS: CYANOCOBALAMIN 1,000 MCG/ML 1 ML VIAL IM SCH (09:04)
[2022-07-12] MEDS: lisinopriL 20 MG TAB PO SCH (09:04)
[2022-07-12] MEDS: ASPIRIN 81 MG PO SCH (09:05)
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
[2022-07-12 11:41] LABS: Glucose,Whole Blood 146 mg/dL (70-110)
--- NOTE | 2022-07-12 11:44 | P.CRDCN ---
History of Present Illness Consult date: 07/12/22 History of present illness: HISTORY OF PRESENT ILLNESS: This is a 67 year old female with a past medical history significant for hypertension, hyperlipidemia, diabetes, and pulmonary embolism. Patient follows in the office with Dr. Owens. She previously saw Dr. Londono. We have been asked to see the patient in consultation for loop recorder interrogation. Patient examined at the bedside. Patient was brought to the hospital for altered mental status. She underwent MRI of the brain which was negative for ischemia. Patient denies any chest pain or pressure. Denies SOB. There is no documentation of atrial fibrillation per office cardiology records. Patient reports having a loop recorder inserted at [facility] but she is unsure of the reason for this. * EKG reveals sinus mechanism with no signs of acute ischemia * Chest xray increased interstitial markings compared to last exam. No pulmonary consolidation or heart failure. * Laboratory data: WBC 9.2. Hemoglobin 15.1. Platelet count 271. Sodium 138. Potassium 3.7. BUN 15. Creatinine 0.76. TSH 1.910 * Current home cardiac medications include aspirin 81 mg daily, carvedilol 3.25 mg twice a day, Lipitor 20 mg daily, amlodipine 10 mg daily, and lisinopril 20 mg daily * Most recent echocardiogram obtained in May 2022 revealing ejection fraction 55-60%, mild MR, mild TR * Cardiac catheterization history: 2017 revealing normal coronary arteries REVIEW OF SYSTEMS: At the time of my exam: CONSTITUTIONAL: Denies fever or chills. HEENT: Denies blurred vision, vision changes, or eye pain. Denies hemoptysis CARDIOVASCULAR: Denies chest pain. Denies orthopnea. Denies PND. Denies palpitations RESPIRATORY: Denies shortness of breath. GASTROINTESTINAL: Denies abdominal pain. Denies nausea or vomiting. HEMATOLOGIC: Denies bleeding disorders. GENITOURINARY: Denies any blood in urine. SKIN: Denies pruitis. Denies rash. PHYSICAL EXAM: VITAL SIGNS: Reviewed. GENERAL: Well-developed in no acute distress. HEENT: Head is normocephalic. Pupils are equal, round. Sclerae anicteric. Mucous membranes of the mouth are moist. Neck supple. No JVD or thyromegaly LUNGS: Respirations even and unlabored. Lungs essentially clear to auscultation bilaterally. HEART: Regular rate and rhythm. S1 and S2 heard. ABDOMEN: Soft. Nondistended. Nontender. EXTREMITIES: Normal range of motion. No clubbing or cyanosis. Peripheral pulses intact. No lower extremity edema NEUROLOGIC: Awake and alert. Oriented x 3. ASSESSMENT: Altered mental status History of lupus ordered insertion, reason unknown Hypertension Hyperlipidemia Diabetes History of TIA History of pulmonary embolism, no longer on anticoagulation PLAN: No documented history of atrial fibrillation. Patient reports history of irregu lar heart rhythm but unsure if this was atrial fibrillation Obtain records from [facility] Interrogate loop recorder No anticoagulation unless documented atrial fibrillation Further recommendations pending patient course Nurse practitioner note has been reviewed by physician. Signing provider agrees with the documented findings, assessment, and plan of care. Past Medical History Past Medical History: Atrial Fibrillation, Asthma, Cancer, Chest Pain / Angina, Heart Failure, COPD, Diabetes Mellitus, Fibromyalgia, GERD/Reflux, Hyperlipidemia, Hypertension, Osteoarthritis (OA), Pneumonia, Pulmonary Embolus (PE), Rheumatoid Arthritis (RA), Seizure Disorder, Sleep Apnea/CPAP/BIPAP Additional Past Medical History / Comment(s): mult TIA-no effects, migraines, irregular heartbeat, varicose veins, no cpap used, oxygen PRN for migraines, hx ulcer, IBS, gout, UTI's, ovarian cancer, diverticulitis History of Any Multi-Drug Resistant Organisms: None Reported Past Surgical History: Appendectomy, Bariatric Surgery, Cholecystectomy, Hernia Repair, Hysterectomy, Joint Replacement, Orthopedic Surgery Additional Past Surgical History / Comment(s): rt hip replacement, rt shoulder rotator Past Anesthesia/Blood Transfusion Reactions: Previous Problems w/ Anesthesia Additional Past Anesthesia/Blood Transfusion Reaction / Comment(s): spray used to numb throat-had anaphylaxis(does not know name). slow to wake up Past Psychological History: Anxiety, Depression, PTSD Additional Psychological History / Comment(s): . Smoking Status: Never smoker Past Alcohol Use History: None Reported Past Drug Use History: None Reported - Past Family History Father Family Medical History: Cancer Additional Family Medical History / Comment(s): . Mother Family Medical History: Coronary Artery Disease (CAD), Dementia, Diabetes Mellitus, Thyroid Disorder Additional Family Medical History / Comment(s): diverticulitis, Sister(s) Family Medical History: Cancer Medications and Allergies Home Medications Medication Instructions Recorded Confirmed Type Atorvastatin [Lipitor] 20 mg PO DAILY 02/12/21 07/07/22 History amLODIPine [Norvasc] 10 mg PO DAILY 04/29/21 07/07/22 History Citalopram Hydrobromide [CeleXA] 10 mg PO DAILY 08/22/21 07/07/22 History Empagliflozin [Jardiance] 10 mg PO DAILY 08/22/21 07/07/22 History Pantoprazole [Protonix] 40 mg PO DAILY 08/22/21 07/07/22 History Cranberry Fruit Concentrate [Azo 250 mg PO DAILY 05/24/22 07/07/22 History Cranberry] INSULIN ASPART (NovoLOG) [NovoLOG 15 unit SQ AC-TID 05/24/22 07/07/22 History (formulary)] Insulin Glargine [Lantus Vial] 25 unit SQ DAILY@1900 05/24/22 07/07/22 History lisinopriL [Zestril] 20 mg PO DAILY 05/24/22 07/07/22 History Aspirin 81 mg PO DAILY tab 07/11/22 Rx carvediloL [Coreg] 3.125 mg PO BID-W/MEALS #60 tab 07/11/22 Rx Allergies Allergy/AdvReac Type Severity Reaction Status Date / Time ampicillin Allergy Rash/Hives Verified 07/07/22 17:22 codeine Allergy Rash/Hives Verified 07/07/22 17:22 erythromycin base Allergy Rash/Hives Verified 07/07/22 17:22 indomethacin Allergy Per [facility] Verified 07/07/22 17:22 lidocaine Allergy Per [facility] Verified 07/07/22 17:22 lorazepam [From Ativan] Allergy Rash/Hives Verified 07/07/22 17:22 Penicillins Allergy Rash/Hives Verified 07/07/22 17:22 Sulfa (Sulfonamide Allergy Rash/Hives Verified 07/07/22 17:22 Antibiotics) Physical Exam Vitals: Vital Signs Temp Pulse Resp BP Pulse Ox 07/12/22 08:00 98.1 F 59 L 16 147/68 97 07/12/22 04:00 97.9 F 57 L 16 117/63 96 07/12/22 02:00 67 07/12/22 00:00 97.6 F 62 16 184/79 95 07/11/22 20:00 97.9 F 64 17 186/88 97 07/11/22 16:43 97.6 F 61 17 183/72 96 07/11/22 16:36 66 17 07/11/22 12:44 98.0 F 66 17 123/73 96 Intake and Output 07/11/22 07/12/22 07/12/22 22:59 06:59 14:59 Intake Total 358 590 Balance 358 590 Intake: Oral 358 590 Other: Voiding Method Toilet Toilet # Voids 1 Results 07/10/22 09:29 07/10/22 09:29 Current Medications Generic Name Dose Route Start Last Admin Trade Name Freq PRN Reason Stop Dose Admin Amlodipine Besylate 5 mg 07/09/22 21:00 07/12/22 09:04 Amlodipine 5 Mg Tab PO 5 mg BID KERRIE Administration Aspirin 81 mg 07/10/22 19:00 07/12/22 09:05 Aspirin 81 Mg PO 81 mg DAILY KERRIE Administration Atorvastatin Calcium 20 mg 07/08/22 11:00 07/12/22 09:04 Atorvastatin 20 Mg Tab PO 20 mg DAILY KERRIE Administration Carvedilol 3.125 mg 07/09/22 17:30 07/12/22 06:42 Carvedilol 3.125 Mg Tab PO 3.125 mg BID-W/MEALS KERRIE Administration Citalopram Hydrobromide 10 mg 07/08/22 11:00 07/12/22 09:04 Citalopram Hydrobromide 10 Mg Tab PO 10 mg DAILY KERRIE Administration Cyanocobalamin 1,000 mcg 07/10/22 19:00 07/12/22 09:04 Cyanocobalamin 1,000 Mcg/Ml 1 Ml Vial IM 07/12/22 19:01 1,000 mcg DAILY KERRIE Administration Dextrose/Water 25 ml 07/10/22 15:45 Dextrose 50% Syringe 50 Ml IVP PER PROTOCOL PRN Hypoglycemia Protocol Dextrose/Water 50 ml 07/10/22 15:45 Dextrose 50% Syringe 50 Ml IVP PER PROTOCOL PRN Hypoglycemia Protocol Heparin Sodium (Porcine) 5,000 unit 07/08/22 16:00 07/12/22 09:03 Heparin Sodium,Porcine/Pf 5,000 Unit/0.5 Ml Syringe SQ 5,000 unit Q8HR KERRIE Administration Insulin Aspart 0 unit 07/08/22 12:30 07/12/22 06:42 Insulin Aspart (Novolog) 100 Unit/Ml Vial SQ Not Given ACHS [facility] Protocol Insulin Detemir 25 unit 07/08/22 19:00 07/11/22 20:26 Insulin Detemir (Levemir) 100 Unit/Ml Syr SQ 25 unit DAILY@1900 KERRIE Administration Lisinopril 20 mg 07/08/22 11:00 07/12/22 09:04 Lisinopril 20 Mg Tab PO 20 mg DAILY KERRIE Administration Naloxone HCl 0.2 mg 07/07/22 16:42 Naloxone 0.4 Mg/Ml 1 Ml Vial IV Q2M PRN Opioid Reversal Pantoprazole Sodium 40 mg 07/08/22 11:00 07/12/22 06:42 Pantoprazole 40 Mg Tablet PO 40 mg [id number] [facility] Administration Intake and Output 07/11/22 07/12/22 07/12/22 22:59 06:59 14:59 Intake Total 358 590 Balance 358 590 Intake: Oral 358 590 Other: Voiding Method Toilet Toilet # Voids 1 07/10/22 09:29 07/10/22 09:29
[2022-07-12 12:25] VITALS: BP 158/70; PULSE 62; TEMP 98
--- NOTE | 2022-07-13 23:13 | P.DS ---
Providers Date of admission: 07/07/22 15:51 Expected date of discharge: 07/12/22 Attending physician: Kevyn Luciano Consults: 07/07/22 16:42 Consult Physician Routine Consulting Provider: Negrito Walls Consult Reason/Comments: loop recorder/A-fib history Do you want consulting provider notified?: Yes Primary care physician: Kevyn Luciano - Discharge Diagnosis(es) (1) Altered mental status Status: Acute (2) Blurred vision, left eye Status: Acute (3) Bradycardia Status: Acute (4) Diabetes type 2, uncontrolled Status: Acute (5) Hypertension Status: Acute Hospital Course: Patient is a pleasant 67-year-old female who is admitted for neurological symptoms she underwent full neurological evaluation included MRI and EEG been neurological services. MRI showed some chronic small vessel disease changes and questionable MS changes. No acute hemorrhage no acute stroke or mass seen. She was cleared for discharge Patient Condition at Discharge: Stable Plan - Discharge Summary Discharge Rx Participant: Yes New Discharge Prescriptions: New Aspirin 81 mg PO DAILY tab carvediloL [Coreg] 3.125 mg PO BID-W/MEALS #60 tab Continue amLODIPine [Norvasc] 10 mg PO DAILY Citalopram Hydrobromide [CeleXA] 10 mg PO DAILY Empagliflozin [Jardiance] 10 mg PO DAILY Cranberry Fruit Concentrate [Azo Cranberry] 250 mg PO DAILY lisinopriL [Zestril] 20 mg PO DAILY Atorvastatin [Lipitor] 20 mg PO DAILY Pantoprazole [Protonix] 40 mg PO DAILY INSULIN ASPART (NovoLOG) [NovoLOG (formulary)] 15 unit SQ AC-TID Insulin Glargine [Lantus Vial] 25 unit SQ DAILY@1900 Discontinued Ibuprofen [Motrin Ib] 800 mg PO Q8H PRN #20 tab PRN Reason: Pain Discharge Medication List Atorvastatin [Lipitor] 20 mg PO DAILY 02/12/21 [History] amLODIPine [Norvasc] 10 mg PO DAILY 04/29/21 [History] Citalopram Hydrobromide [CeleXA] 10 mg PO DAILY 08/22/21 [History] Empagliflozin [Jardiance] 10 mg PO DAILY 08/22/21 [History] Pantoprazole [Protonix] 40 mg PO DAILY 08/22/21 [History] Cranberry Fruit Concentrate [Azo Cranberry] 250 mg PO DAILY 05/24/22 [History] INSULIN ASPART (NovoLOG) [NovoLOG (formulary)] 15 unit SQ AC-TID 05/24/22 [History] Insulin Glargine [Lantus Vial] 25 unit SQ DAILY@1900 05/24/22 [History] lisinopriL [Zestril] 20 mg PO DAILY 05/24/22 [History] Aspirin 81 mg PO DAILY tab 07/11/22 [Rx] carvediloL [Coreg] 3.125 mg PO BID-W/MEALS #60 tab 07/11/22 [Rx] Follow up Appointment(s)/Referral(s): Kevyn Luciano DO [Primary Care Provider] - 07/17/22 11:20 am [facility] [[facility]-STAFF] - Patient Instructions/Handouts: Altered Mental Status (GEN) Discharge Disposition: HOME SELF-CARE
== END 2022-07-12 15:05 | disposition home health service (06) | DRG 71 ==
LOC: EC 14:45 → 3SCARD 15:51
PROVIDERS: ADMIT Family Medicine; ATTEND Family Medicine
DX: G93.41 Metabolic encephalopathy (principal); R47.01 Aphasia; H53.8 Other visual disturbances; R00.1 Bradycardia, unspecified; E11.65 Type 2 diabetes mellitus with hyperglycemia; E53.8 Deficiency of other specified B group vitamins; E78.5 Hyperlipidemia, unspecified; F32.A Depression, unspecified; F41.9 Anxiety disorder, unspecified; F43.10 Post-traumatic stress disorder, unspecified; I48.0 Paroxysmal atrial fibrillation; J44.9 Chronic obstructive pulmonary disease, unspecified; I11.0 Hypertensive heart disease with heart failure; I50.9 Heart failure, unspecified; M06.9 Rheumatoid arthritis, unspecified; M19.90 Unspecified osteoarthritis, unspecified site; M79.7 Fibromyalgia; K21.9 Gastro-esophageal reflux disease without esophagitis; I16.0 Hypertensive urgency; G40.909 Epilepsy, unspecified, not intractable, without status epilepticus; G47.33 Obstructive sleep apnea (adult) (pediatric); R29.714 NIHSS score 14; G81.94 Hemiplegia, unspecified affecting left nondominant side; W18.39XA Other fall on same level, initial encounter; I65.03 Occlusion and stenosis of bilateral vertebral arteries; Z96.641 Presence of right artificial hip joint; Z79.899 Other long term (current) drug therapy; Z87.01 Personal history of pneumonia (recurrent); Z86.711 Personal history of pulmonary embolism; Z79.84 Long term (current) use of oral hypoglycemic drugs; Z79.82 Long term (current) use of aspirin; Z79.4 Long term (current) use of insulin; Z85.43 Personal history of malignant neoplasm of ovary; Z86.73 Personal history of transient ischemic attack (TIA), and cerebral infarction without residual deficits; Y93.K1 Activity, walking an animal; Z87.440 Personal history of urinary (tract) infections; Z98.84 Bariatric surgery status; Z88.6 Allergy status to analgesic agent; Z88.1 Allergy status to other antibiotic agents; Z88.0 Allergy status to penicillin; Z88.2 Allergy status to sulfonamides; Z88.8 Allergy status to other drugs, medicaments and biological substances; Y92.008 Other place in unspecified non-institutional (private) residence as the place of occurrence of the external cause; V49.40XD Driver injured in collision with unspecified motor vehicles in traffic accident, subsequent encounter
CPT/HCPCS: 36415; 70496; 70498; 70551; 71046; 72170; 80048; 80053; 80306; 81001; 82140; 82607; 82746; 83036; 84443; 84484; 85025; 85610; 85730; 93005; 95816

== ENCOUNTER → 2022-08-07 | Outpatient (CLI) | payer MEDICARE, OTHER ==
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
== END | disposition home or self-care (01) ==
LOC: RADMRIMAIN 18:54
PROVIDERS: ATTEND Orthopaedic Surgery
DX: M75.111 Incomplete rotator cuff tear or rupture of right shoulder, not specified as traumatic (principal); M25.411 Effusion, right shoulder

== ENCOUNTER 2023-02-02 08:45 | Day surgery (SDC) | payer MEDICARE ==
[2023-02-01 10:12] VITALS: BMI 31.0
[~2023-02-02 08:45] MED LIST changes: +ACETAMINOPHEN TAB 500 MG TAB PO PRN; +DEXAMETHASONE SOD PHOSPHATE 4 MG/ML 1 ML VIAL IV ONE; +HEPARIN SODIUM,PORCINE/PF 5,000 UNIT/0.5 ML SYRINGE SQ PRN; -fentaNYL (PF) 50 MCG/ML 2 ML AMP IVP PRN
[2023-02-02 09:49] LABS: Glucose,Whole Blood 91 mg/dL (70-110)
[2023-02-02 10:39] LABS: Albumin 3.5 g/dL (3.5-5.0); Calcium 9.3 mg/dL (8.4-10.2); Potassium 3.9 mmol/L (3.5-5.1); Total Bilirubin 1.1 mg/dL (0.2-1.3); Total Protein 6.4 g/dL (6.3-8.2)
[2023-02-02 10:45] LABS: Basophils % (A) 0 %; Eosinophils # (A) 0.3 k/uL (0-0.7); Eosinophils % (A) 4 %; HCT 39.5 % (34.0-46.0); HGB 12.8 gm/dL (11.4-16.0); Lymphocytes % (A) 25 %; MCH 28.8 pg (25.0-35.0); MCHC 32.5 g/dL (31.0-37.0); MCV 88.5 fL (80.0-100.0); Mean Platelet Volume 8.4; Monocytes # (A) 0.5 k/uL (0-1.0); Monocytes % (A) 7 %; Neutrophils % (A) 62 %; Platelet Count 247 k/uL (150-450); RBC 4.46 m/uL (3.80-5.40); RDW 13.3 % (11.5-15.5); WBC 8.1 k/uL (3.8-10.6)
[2023-02-02] MEDS ORDERED: MIDAZOLAM 2 MG/2 ML VIAL ONE (11:02)
[2023-02-02] MEDS ORDERED: GLYCOPYRROLATE 0.2 MG/ML 2 ML VIAL ONE (11:02)
[2023-02-02] MEDS ORDERED: fentaNYL (PF) 50 MCG/ML 2 ML AMP ONE (11:02)
[2023-02-02] MEDS ORDERED: SUCCINYLCHOLINE CHLORIDE 200 MG/10 ML VIAL IV ONE (11:02)
[2023-02-02] MEDS ORDERED: KETOROLAC 15 MG/ML 1 ML VIAL ONE (11:02)
[2023-02-02] MEDS ORDERED: NEOSTIGMINE 1 MG/ML 10 ML VIAL ONE (11:02)
[2023-02-02] MEDS ORDERED: ePHEDrine 50 MG/ML 1 ML VIAL ONE (11:02)
[2023-02-02] MEDS ORDERED: PROPOFOL 10 MG/ML 20 ML VIAL IV ONE (11:02)
[2023-02-02] MEDS ORDERED: ROCURONIUM 10 MG/ML (5 ML VIAL) IV ONE (11:02)
[2023-02-02] MEDS ORDERED: BUPIVACAINE (PF) 0.5% 30 ML VIAL SQ ONE ×2 (11:25)
[2023-02-02] MEDS ORDERED: LIDOCAINE 0.5%-EPI 1:200,000 50 ML VIAL SQ ONE ×3 (11:39)
[2023-02-02 12:21] VITALS: TEMP 97.2
[2023-02-02 13:24] VITALS: RESP 16
[2023-02-02 13:37] LABS: Glucose,Whole Blood 103 mg/dL (70-110)
[2023-02-02 14:30] VITALS: BP 111/70; PULSE 60
--- NOTE | 2023-02-21 10:44 | P.OP ---
Date of Procedure: 02/02/23 Preoperative Diagnosis: Incisional hernia Postoperative Diagnosis: Incisional hernia Procedure(s) Performed: Open repair of incisional hernia with Prolene mesh Anesthesia: DANIELA Surgeon: Douglas Monahan Estimated Blood Loss (ml): 10 Pathology: none sent Condition: stable Disposition: PACU Description of Procedure: The patient's placed on the operative table in the supine position. She received general endotracheal tube anesthesia. Patient had a reducible incisional hernia. The hernia was approximately 10 cm in length. The skin was incised over the hernia. Using blunt and sharp dissection with cautery the subcutaneous tissue was dissected free from the fascia. The hernia sac was then inverted back into the pleural cavity the fascia was then reapproximated using. 0 Ethibond suture. Once the fascia was repaired. A piece of Prolene mesh was cut to size and placed on top of the fascia and then secured with secure strap tacker. A CASTRO drains patient's over top of the mesh. And brought through separate stab incision. Barbara's fascia close [place]. Skin was then closed suly. Patient top she will was sent to recovery in stable condition.
== END 2023-02-02 15:09 | disposition home or self-care (01) ==
LOC: OR 08:45
PROVIDERS: ATTEND Surgery
DX: K43.2 Incisional hernia without obstruction or gangrene (principal); I25.2 Old myocardial infarction; E78.5 Hyperlipidemia, unspecified; I11.0 Hypertensive heart disease with heart failure; I50.9 Heart failure, unspecified; I48.91 Unspecified atrial fibrillation; J44.9 Chronic obstructive pulmonary disease, unspecified; G47.33 Obstructive sleep apnea (adult) (pediatric); E11.9 Type 2 diabetes mellitus without complications; M79.7 Fibromyalgia; K21.9 Gastro-esophageal reflux disease without esophagitis; G40.909 Epilepsy, unspecified, not intractable, without status epilepticus; Z79.4 Long term (current) use of insulin; Z79.899 Other long term (current) drug therapy; Z79.82 Long term (current) use of aspirin
CPT/HCPCS: 80053; 85025; 49593; J2250; J0330; J1100; J2710; J0690; J2405; J3010; J1885; J2704

== ENCOUNTER 2023-10-12 16:17 | Emergency (ER) | payer OTHER, MEDICARE ==
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
[2023-10-12 16:54] VITALS: RESP 16
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
[2023-10-12] MEDS ORDERED: ACETAMINOPHEN TAB 325 MG TAB PO STA (17:44)
--- NOTE | 2023-10-12 18:49 | XR ---
EXAMINATION TYPE: XR shoulder complete BILAT DATE OF EXAM: 10/12/2023 CLINICAL HISTORY: pain TECHNIQUE: Three views of the bilateral shoulders are obtained. COMPARISON: None FINDINGS: There is no acute fracture/dislocation evident. The acromioclavicular and glenohumeral tiffanie int spaces appear within normal limits. The visualized ribs are intact and unremarkable. IMPRESSION: 1. There is no acute fracture or dislocation. ICD 10 NO FRACTURE, INITIAL EVALUATION
--- NOTE | 2023-10-12 18:50 | XR ---
EXAMINATION TYPE: XR knee complete RT DATE OF EXAM: 10/12/2023 CLINICAL HISTORY: pain TECHNIQUE: Three views of the right knee are obtained. COMPARISON: 07/08/2022 FINDINGS: There is no acute fracture/dislocation. The tri-compartment joint spaces appear within no rmal limits. Stable Postoperative changes. The overlying soft tissue appears unremarkable. IMPRESSION: There is no acute fracture or dislocation.ICD 10 NO FRACTURE, INITIAL EVALUATION
--- NOTE | 2023-10-12 18:50 | XR ---
EXAMINATION TYPE: XR chest 1V DATE OF EXAM: 10/12/2023 HISTORY: Shortness of breath. COMPARISON: 07/07/2022 TECHNIQUE: Single view of the chest is submitted. FINDINGS: Demonstrated are scattered senescent parenchymal change. There is no evidence for focal infiltrate. The heart is stable. Hilar and mediastinal structures are within normal limits. Degenerative changes are seen of the dorsal spine. IMPRESSION: 1. Chronic changes without evidence for acute pulmonary disease.
--- NOTE | 2023-10-12 18:51 | XR ---
EXAMINATION TYPE: XR Hip RT and AP Pelvis DATE OF EXAM: 10/12/2023 CLINICAL HISTORY: pain TECHNIQUE: AP and frogleg views of the right hip are obtained. Single view pelvis also submitted. COMPARISON: None. FINDINGS: There is no acute fracture/dislocation evident. Right hemiarthroplasty noted of the right proximal femur. Fixation plate and screws seen laterally. No acute fracture seen. The overlying soft tissue appears unremarkable. IMPRESSION: 1. There is no acute fracture or dislocation. ICD 10 NO FRACTURE, INITIAL EVALUATION
[2023-10-12 20:08] VITALS: BP 115/70; PULSE 57; TEMP 97.7
== END 2023-10-12 20:51 | disposition home or self-care (01) ==
LOC: EC 16:17
DX: M25.512 Pain in left shoulder (principal); M25.511 Pain in right shoulder; I48.91 Unspecified atrial fibrillation; J44.89 Other specified chronic obstructive pulmonary disease; E11.9 Type 2 diabetes mellitus without complications; E78.5 Hyperlipidemia, unspecified; K21.9 Gastro-esophageal reflux disease without esophagitis; I25.2 Old myocardial infarction; G47.30 Sleep apnea, unspecified; I11.0 Hypertensive heart disease with heart failure; I50.9 Heart failure, unspecified; Z79.84 Long term (current) use of oral hypoglycemic drugs; Z79.899 Other long term (current) drug therapy; Z88.5 Allergy status to narcotic agent; Z88.0 Allergy status to penicillin; Z88.2 Allergy status to sulfonamides; Z88.1 Allergy status to other antibiotic agents; Z88.8 Allergy status to other drugs, medicaments and biological substances; V89.2XXA Person injured in unspecified motor-vehicle accident, traffic, initial encounter; Y92.410 Unspecified street and highway as the place of occurrence of the external cause
CPT/HCPCS: 70450; 71045; 72125; 73502; 99285

== ENCOUNTER → 2023-11-21 | Outpatient (CLI) | payer MEDICARE, OTHER ==
[2023-11-21 18:33] LABS: Microalbumin Creatinine Ratio <40 mg/g Cr (0-30); Urine Creatinine 30.3 mg/dL (28.0-217.0)
[2023-11-21 18:47] LABS: ALT 9 U/L (8-44); AST 21 U/L (13-35); Albumin 4.2 g/dL (3.8-4.9); Alkaline Phosphatase 144 U/L (41-126); BUN/Creat Ratio 17.67 Ratio (12.00-20.00); Blood Urea Nitrogen 21.2 mg/dL (9.0-27.0); Calcium 10.7 mg/dL (8.7-10.3); Carbon Dioxide 23.5 mmol/L (21.6-31.8); Chloride 102 mmol/L (96-109); Chol/HDL Ratio 2.37 Ratio; Globulin 2.8 g/dL (1.6-3.3); Glucose 112 mg/dL (70-110); LDL Cholesterol,Calculated 49.2 mg/dL (0.0-131.0); Potassium 5.3 mmol/L (3.5-5.5); Sodium 137 mmol/L (135-145); Total Bilirubin 0.7 mg/dL (0.3-1.2)
== END | disposition home or self-care (01) ==
LOC: LABWHC1 13:01
PROVIDERS: ATTEND Internal Medicine Endocrinology, Diabetes & Metabolism
DX: E11.65 Type 2 diabetes mellitus with hyperglycemia (principal)
CPT/HCPCS: 36415; 80053; 80061; 82043; 82570; 83036; 84443

== ENCOUNTER 2024-02-07 14:09 | Emergency (ER) | payer MEDICARE, OTHER ==
[2024-02-07 15:06] VITALS: RESP 18
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
--- NOTE | 2024-02-07 15:18 | CT ---
EXAMINATION TYPE: CT facial bones wo con DATE OF EXAM: 02/07/2024 COMPARISON: None HISTORY: Fall with nasal injury. CT DLP: 1216.[address] of the facial bones was performed in the axial and coronal planes. Bone and soft tissu e window settings are submitted. No significant soft tissue swelling is appreciated. Virtually nondisplaced and nondepressed left-sided nasal bone fracture. No additional fracture seen. The globes are intact. Paranasal sinuses are well-aerated. IMPRESSION: 1. Virtually nondisplaced and nondepressed left-sided nasal bone fracture. No additional fracture se en.
--- NOTE | 2024-02-07 15:32 | ED ---
Fall HPI - General Chief Complaint: Fall Stated Complaint: Fell yesterday nose injury Time Seen by Provider: 02/07/24 14:40 Source: patient, RN notes reviewed Mode of arrival: ambulatory Limitations: no limitations - History of Present Illness Initial Comments: 68-year-old female presents emergency department with chief complaint of a fall. Patient states she tripped over dog leash yesterday. Patient has abrasion of her face but states her tetanus up-to-date denies any loss conscious no headache she states she has mild facial pain states she has nasal stent in which she is concerned about this. Patient denies any current epistaxis. - Related Data Home Medications Medication Instructions Recorded Confirmed Atorvastatin [Lipitor] 20 mg PO DAILY 02/12/21 02/02/23 amLODIPine [Norvasc] 10 mg PO DAILY 04/29/21 02/02/23 Citalopram Hydrobromide [CeleXA] 40 mg PO DAILY 08/22/21 02/02/23 Empagliflozin [Jardiance] 10 mg PO DAILY 08/22/21 02/01/23 Pantoprazole [Protonix] 40 mg PO DAILY 08/22/21 02/02/23 Cranberry Fruit Concentrate [Azo 250 mg PO DAILY 05/24/22 02/01/23 Cranberry] INSULIN ASPART (NovoLOG) [NovoLOG 8 unit SQ AC-TID 05/24/22 02/01/23 (formulary)] Insulin Glargine [Lantus Vial] 25 unit SQ DAILY@1900 05/24/22 02/01/23 lisinopriL [Zestril] 20 mg PO DAILY 05/24/22 02/02/23 Calcium Carbonate/Vitamin D3 1 each PO DAILY 02/01/23 02/01/23 [Calcium 500-Vit D3 5 Mcg (200 Iu)] Previous Rx's Medication Instructions Recorded Aspirin 81 mg PO DAILY tab 07/11/22 carvediloL [Coreg] 3.125 mg PO BID-W/MEALS #60 tab 07/11/22 HYDROcodone/APAP 5-325MG [[place] 1 tab PO Q6HR PRN #28 tab 11/22/22 5-325] Acetaminophen Tab [Tylenol] 650 mg PO Q6H #30 tab 02/02/23 Docusate [Colace] 100 mg PO BID #20 capsule 02/02/23 Ibuprofen [Motrin] 600 mg PO Q6HR PRN #40 tab 02/02/23 oxyCODONE HCL [OxyIR] 5 mg PO Q6H PRN 3 Days #10 tab 02/02/23 Allergies Allergy/AdvReac Type Severity Reaction Status Date / Time indomethacin Allergy Severe Rash/Hives Verified 02/02/23 09:25 adhesive tape Allergy Rash/Hives Verified 02/02/23 09:25 ampicillin Allergy Rash/Hives Verified 02/02/23 09:25 benzocaine Allergy Anaphylaxis Verified 02/02/23 09:25 codeine Allergy Rash/Hives Verified 02/02/23 09:25 erythromycin base Allergy Rash/Hives Verified 02/02/23 09:25 lorazepam [From Ativan] Allergy Rash/Hives Verified 02/02/23 09:25 Penicillins Allergy Rash/Hives Verified 02/02/23 09:25 Sulfa (Sulfonamide Allergy Rash/Hives Verified 02/02/23 09:25 Antibiotics) Review of Systems ROS Statement: Those systems with pertinent positive or pertinent negative responses have been documented in the HPI. ROS Other: All systems not noted in ROS Statement are negative. 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 Last Myocardial Infarction Date:: 2019 History of Any Multi-Drug Resistant Organisms: None Reported Past Surgical History: Appendectomy, Bariatric Surgery, Cholecystectomy, Hernia Repair, Hysterectomy, Joint Replacement, Orthopedic Surgery Additional Past Surgical History / Comment(s): rt hip replacement, rt shoulder rotator cuff surgery. Bariatric sleeve. heart monitor. Past Anesthesia/Blood Transfusion Reactions: Previous Problems w/ Anesthesia Additional Past Anesthesia/Blood Transfusion Reaction / Comment(s): spray used to numb throat-had anaphylaxis(does not know name). slow to wake up Past Psychological History: PTSD Smoking Status: Never smoker - Past Family History Father Family Medical History: Cancer Additional Family Medical History / Comment(s): . Mother Family Medical History: Coronary Artery Disease (CAD), Dementia, Diabetes Ekaterina litus, Thyroid Disorder Additional Family Medical History / Comment(s): diverticulitis, Sister(s) Family Medical History: Cancer General Exam Limitations: no limitations General appearance: alert, in no apparent distress Head exam: Present: atraumatic, normocephalic, normal inspection Eye exam: Present: normal appearance, PERRL, EOMI, periorbital swelling, periorbital tenderness. Absent: scleral icterus, conjunctival injection ENT exam: Present: normal oropharynx, mucous membranes moist, TM's normal bilaterally, normal external ear exam, other (Minimal nasal tenderness) Neck exam: Present: normal inspection, full ROM. Absent: tenderness, meningismus, lymphadenopathy Respiratory exam: Present: normal lung sounds bilaterally. Absent: respiratory distress, wheezes, rales, rhonchi, stridor Cardiovascular Exam: Present: regular rate, normal rhythm, normal heart sounds. Absent: systolic murmur, diastolic murmur, rubs, gallop, clicks Neurological exam: Present: alert, oriented X3, CN II-XII intact, reflexes normal. Absent: motor sensory deficit Course Vital Signs 02/07/24 14:20 Temperature 97.6 F Pulse Rate 61 Respiratory 18 Rate Blood Pressure 139/67 O2 Sat by Pulse 99 Oximetry Medical Decision Making - Medical Decision Making Was pt. sent in by a medical professional or institution (, PA, DRY ICE MAKER, urgent care, hospital, or custodial...) When possible be specific @ -No Did you speak to anyone other than the patient for history (EMS, parent, family, police, friend...)? What history was obtained from this source @ -No Did you review nursing and triage notes (agree or disagree)? Why? @ -I reviewed and agree with nursing and triage notes Were old charts reviewed (outside hosp., previous admission, EMS record, old EKG, old radiological studies, urgent care reports/EKG's, custodial records)? Report findings @ -No old charts were reviewed Differential Diagnosis (chest pain, altered mental status, abdominal pain women, abdominal pain men, vaginal bleeding, weakness, fever, dyspnea, syncope, headache, dizziness, GI bleed, back pain, seizure, CVA, palpatations, mental health, musculoskeletal)? @ -Fall, intracranial hemorrhage, closed head injury, facial fracture EKG interpreted by me (3pts min.). @ -None X-rays interpreted by me (1pt min.). @ -None done CT interpreted by me CT T brain, C-spine and facial bones shows no acute intracranial hemorrhage or mass effect, cervical fractures or virtually nondisplaced nondepressed nasal bone fracture U/S interpreted by me (1pt. min.). @ -None done What testing was considered but not performed or refused? (CT, X-rays, U/S, labs)? Why? @ -None What meds were considered but not given or refused? Why? @ -None Did you discuss the management of the patient with other professionals (ivanna melara i.eMelva Street, PA, DRY ICE MAKER, lab, RT, psych nurse, social media campaign manager, hardware engineer, teacher, learning and development officer, special education case manager)? Give summary @ -No Was smoking cessation discussed for >3mins.? @ -No Was critical care preformed (if so, how long)? @ -No Were there social determinants of health that impacted care today? How? (Homelessness, low income, unemployed, alcoholism, drug addiction, transportation, low edu. Level, literacy, decrease access to med. care, correction, rehab)? @ -No Was there de-escalation of care discussed even if they declined (Discuss DNR or withdrawal of care, Hospice)? DNR status @ -No What co-morbidities impacted this encounter? (DM, HTN, Smoking, COPD, CAD, Cancer, CVA, ARF, Chemo, Hep., AIDS, mental health diagnosis, sleep apnea, morbid obesity)? @ -None Was patient admitted / discharged? Hospital course, mention meds given and route, prescriptions, significant lab abnormalities, going to OR and other pertinent info. @ -Discharge patient has nasal bone fracture no other acute abnormality. Patient is discharged in stable condition return for as discussed. Undiagnosed new problem with uncertain prognosis? @ -No Drug Therapy requiring intensive monitoring for toxicity (Heparin, Nitro, Insulin, Cardizem)? @ -No Were any procedures done? @ -No Diagnosis/symptom? @ -Nasal fracture Acute, or Chronic, or Acute on Chronic? @ -Acute Uncomplicated (without systemic symptoms) or Complicated (systemic symptoms)? @ -Uncomplicated Side effects of treatment? @ -No Exacerbation, Progression, or Severe Exacerbation? @ -No Poses a threat to life or bodily function? How? (Chest pain, USA, HI, pneumonia, PE, COPD, DKA, ARF, appy, cholecystitis, CVA, Diverticulitis, Homicidal, Suicidal, threat to staff... and all critical care pts) @ -No Disposition Clinical Impression: Fall, Nasal fracture Disposition: HOME SELF-CARE Condition: Stable Instructions (If sedation given, give patient instructions): Nasal Fracture (ED) Additional Instructions: Please return to the Emergency Department if symptoms worsen or any other concerns. Is patient prescribed a controlled substance at d/c from ED?: No Referrals: Kevyn Luciano DO [Primary Care Provider] - 1-2 days Time of Disposition: 15:32
[2024-02-07 16:04] VITALS: BP 131/76; PULSE 62; TEMP 97.9
== END 2024-02-07 16:16 | disposition home or self-care (01) ==
LOC: EC 14:09
DX: S02.2XXA Fracture of nasal bones, initial encounter for closed fracture (principal); Z88.0 Allergy status to penicillin; Z88.1 Allergy status to other antibiotic agents; Z88.2 Allergy status to sulfonamides; Z88.5 Allergy status to narcotic agent; Z88.8 Allergy status to other drugs, medicaments and biological substances; Z91.09 Other allergy status, other than to drugs and biological substances; Z86.73 Personal history of transient ischemic attack (TIA), and cerebral infarction without residual deficits; W01.0XXA Fall on same level from slipping, tripping and stumbling without subsequent striking against object, initial encounter
CPT/HCPCS: 70450; 70486; 72125; 99283

== ENCOUNTER → 2024-03-28 | Outpatient (CLI) | payer MEDICARE, OTHER ==
--- NOTE | 2024-03-31 10:19 | MM ---
Reason for Exam: Screening (asymptomatic). Last mammogram was performed 2 year(s) and 2 month(s) ago. Patient History: Menarche at age 10. Patient has no children. Left ovary removed at age 44. Right ovary removed at age 44. Hysterectomy at age 44. Postmenopausal. Ovarian cancer, age 44. Maternal cousin had breast cancer. Maternal aunt had breast cancer. Sister had breast cancer. Risk Values: Edith 5 year model risk: 3.7%. NCI Lifetime model risk: 11.6%. Prior Study Comparison: 07/01/2009 Bilateral Diagnostic Mammogram, [facility]. 12/19/2016 Bilateral Screening Mammogram, [facility]. 01/30/2022 Bilateral Screening Mammogram, [facility]. Tissue Density: The breasts are almost entirely fatty. Findings: Analyzed By CAD. Loop recorder projects over the left breast. Right breast: There is no suspicious group of microcalcifications or new suspicious mass. Left breast: There is no suspicious group of microcalcifications or new suspicious mass. Overall Assessment: Negative, BI-RAD 1 Management: Screening Mammogram of both breasts in [address] [facility] will attempt to contact patient to return for supplemental views and ultrasound if indicated. Patient should continue monthly self-breast exams. A clinical breast exam by your physician is recommended on an annual basis. This exam should not preclude additional follow-up of suspicious palpable abnormalities. Note on Edith scores and lifetime risk: 1. A Edith score greater than 3% is considered moderate risk. If this is the case, consider specialist referral to assess eligibility for a risk reducing agent. 2. If overall lifetime risk for the development of breast cancer is 20% or higher, the patient may qualify for future screening with alternating mammogram and breast MRI. Electronically signed and approved by: Figueroa Dixon DO
== END | disposition home or self-care (01) ==
LOC: RADMAMWWP 13:22
PROVIDERS: ATTEND Family Medicine
DX: Z12.31 Encounter for screening mammogram for malignant neoplasm of breast (principal); Z78.0 Asymptomatic menopausal state; Z80.3 Family history of malignant neoplasm of breast
CPT/HCPCS: 77063; 77067

== ENCOUNTER → 2024-07-07 | Outpatient (CLI) | payer MEDICARE, OTHER ==
--- NOTE | 2024-07-07 16:30 | XR ---
Right hip. HISTORY: Hip pain COMPARISON: 10/12/2023. TECHNIQUE: 2 views the right hip were obtained. FINDINGS: There is a right hip prosthesis. The metallic plate and screws in the proximal right femur. There is no acute fracture or dislocation. The right hemipelvis is intact. IMPRESSION: No acute trauma. [facility] Workstation: [facility], 07/07/2024 4:28 PM
== END | disposition home or self-care (01) ==
LOC: RADXRMAIN 15:26
PROVIDERS: ATTEND Family Medicine
DX: M25.551 Pain in right hip (principal)
CPT/HCPCS: 73502

== ENCOUNTER 2024-07-29 17:31 | Emergency (ER) | payer MEDICARE, OTHER ==
--- NOTE | 2024-07-29 18:02 | ED ---
Skin/Abscess/FB HPI - General Source: RN notes reviewed Mode of arrival: ambulatory Limitations: no limitations - History of Present Illness Onset/Timin -: week(s) Location: buttocks <Deniz Spence - Last Filed: 07/29/24 18:00> <Luis Miranda - Last Filed: 08/04/24 23:33> - General Stated complaint: bladder infection and sore on R buttock Time Seen by Provider: 07/29/24 17:47 - History of Present Illness Initial comments: Quick note: This is a 69-year-old female with history of DVT and diabetes presenting with a sore on her right buttocks x 2 weeks. Patient endorses concern for ingrown hair in the area and endorses increased pain. No patient also endorses recent dysuria and increased urinary frequency x 2 days. (Deniz Spence) 69-year-old female presents with chief complaint of "I think have a bladder infection". Patient has been experiencing dysuria as well as increased urinary urgency and frequency. Symptoms started 3 days ago. She denies any abdominal pain. No flank pain, nausea, vomiting. No hematuria. Unsure if she has had a fever. Patient is also complaining of some urinary to her buttocks. States that there has been a painful bump that she thinks is possibly an ingrown hair or abscess. Has been present for the last 2 weeks. Denies any drainage from the site. No abdominal pain. (Luis Miranda) - Related Data Home Medications Medication Instructions Recorded Confirmed Atorvastatin [Lipitor] 20 mg PO DAILY 02/12/21 02/02/23 amLODIPine [Norvasc] 10 mg PO DAILY 04/29/21 02/02/23 Citalopram Hydrobromide [CeleXA] 40 mg PO DAILY 08/22/21 02/02/23 Empagliflozin [Jardiance] 10 mg PO DAILY 08/22/21 02/01/23 Pantoprazole [Protonix] 40 mg PO DAILY 08/22/21 02/02/23 Cranberry Fruit Concentrate [Azo 250 mg PO DAILY 05/24/22 02/01/23 Cranberry] INSULIN ASPART (NovoLOG) [NovoLOG 8 unit SQ AC-TID 05/24/22 02/01/23 (formulary)] Insulin Glargine [Lantus Vial] 25 unit SQ DAILY@1900 05/24/22 02/01/23 lisinopriL [Zestril] 20 mg PO DAILY 05/24/22 02/02/23 Calcium Carbonate/Vitamin D3 1 each PO DAILY 02/01/23 02/01/23 [Calcium 500-Vit D3 5 Mcg (200 Iu)] Previous Rx's Medication Instructions Recorded Aspirin 81 mg PO DAILY tab 07/11/22 carvediloL [Coreg] 3.125 mg PO BID-W/MEALS #60 tab 07/11/22 HYDROcodone/APAP 5-325MG [[place] 1 tab PO Q6HR PRN #28 tab 11/22/22 5-325] Acetaminophen Tab [Tylenol] 650 mg PO Q6H #30 tab 02/02/23 Docusate [Colace] 100 mg PO BID #20 capsule 02/02/23 Ibuprofen [Motrin] 600 mg PO Q6HR PRN #40 tab 02/02/23 oxyCODONE HCL [OxyIR] 5 mg PO Q6H PRN 3 Days #10 tab 02/02/23 Cephalexin [Keflex] 500 mg PO Q6HR 7 Days #28 cap 07/29/24 Allergies Allergy/AdvReac Type Severity Reaction Status Date / Time indomethacin Allergy Severe Rash/Hives Verified 07/29/24 18:08 adhesive tape Allergy Rash/Hives Verified 07/29/24 18:08 ampicillin Allergy Rash/Hives Verified 07/29/24 18:08 benzocaine Allergy Anaphylaxis Verified 07/29/24 18:08 codeine Allergy Rash/Hives Verified 07/29/24 18:08 erythromycin base Allergy Rash/Hives Verified 07/29/24 18:08 lorazepam [From Ativan] Allergy Rash/Hives Verified 07/29/24 18:08 Penicillins Allergy Rash/Hives Verified 07/29/24 18:08 Sulfa (Sulfonamide Allergy Rash/Hives Verified 07/29/24 18:08 Antibiotics) Review of Systems ROS Other: All systems not noted in ROS Statement are negative. <Deniz Spence - Last Filed: 07/29/24 18:00> ROS Other: All systems not noted in ROS Statement are negative. <Luis Miranda - Last Filed: 08/04/24 23:33> ROS Statement: Those systems with pertinent positive or pertinent negative responses have been documented in the HPI. Past Medical History Past Medical History: Atrial Fibrillation, Asthma, Cancer, Chest Pain / Angina, Heart Failure, COPD, Diabetes Mellitus, Deep Vein Thrombosis (DVT), Fibromyalgia, GERD/Reflux, Hyperlipidemia, Hypertension, Myocardial Infarction (ID), Osteoarthritis (OA), Pneumonia, Pulmonary Embolus (PE), Rheumatoid Arthritis (RA), Seizure Disorder, Sleep Apnea/CPAP/BIPAP Additional Past Medical History / Comment(s): mult TIA-no effects, migraines, irregular heartbeat, varicose veins, no cpap used, hx ulcer, IBS, gout, UTI's, ovarian cancer, diverticulitis, Has a library monitor 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 Last Myocardial Infarction Date:: 2019 History of Any Multi-Drug Resistant Organisms: None Reported Past Surgical History: Appendectomy, Bariatric Surgery, Cholecystectomy, Hernia Repair, Hysterectomy, Joint Replacement, Orthopedic Surgery Additional Past Surgical History / Comment(s): rt hip replacement, rt shoulder rotator cuff surgery. Bariatric sleeve. heart monitor. Past Anesthesia/Blood Transfusion Reactions: Previous Problems w/ Anesthesia Additional Past Anesthesia/Blood Transfusion Reaction / Comment(s): spray used to numb throat-had anaphylaxis(does not know name). slow to wake up Past Psychological History: PTSD Smoking Status: Never smoker - Past Family History Father Family Medical History: Cancer Additional Family Medical History / Comment(s): . Mother Family Medical History: Coronary Artery Disease (CAD), Dementia, Diabetes Mellitus, Thyroid Disorder Additional Family Medical History / Comment(s): diverticulitis, Sister(s) Family Medical History: Cancer <Deniz Spence - Last Filed: 07/29/24 18:00> General Exam <Deniz Spence - Last Filed: 07/29/24 18:00> General appearance: alert, in no apparent distress Head exam: Present: atraumatic, normocephalic Eye exam: Present: normal appearance, EOMI Neck exam: Present: normal inspection. Absent: meningismus Respiratory exam: Absent: respiratory distress Cardiovascular Exam: Present: regular rate GI/Abdominal exam: Present: soft. Absent: distended, tenderness, guarding, rebound, rigid Rectal exam: Present: other (Patient shows me the area on her right buttock where she believes that the sore is. There is no lesion or fluid collection appreciated. There is a small spot of hyperpigmentation that may be where a previous ingrown hair was) Neurological exam: Present: alert, oriented X3 Psychiatric exam: Present: normal affect, normal mood Skin exam: Present: warm, dry <Luis Miranda - Last Filed: 08/04/24 23:33> - General Exam Comments Initial Comments: Visual Physical Exam Vital signs reviewed General: Well-appearing, nontoxic, no acute distress. Head: Normocephalic, atraumatic Eyes: PERRLA, EOMI ENT: Airway patent Chest: Nonlabored breathing Skin: No visual rash, normal skin tone Neuro: Alert and oriented 3 Musculoskeletal: No gross abnormalities (Deniz Spence) Course Vital Signs 07/29/24 07/29/24 18:08 21:52 Temperature 97.6 F 97.8 F Pulse Rate 56 L 71 Respiratory 20 18 Rate Blood Pressure 111/65 115/72 O2 Sat by Pulse 98 98 Oximetry Medical Decision Making <Deniz Spence - Last Filed: 07/29/24 18:00> <Luis Miranda - Last Filed: 08/04/24 23:33> - Medical Decision Making I completed the quick note portion of this chart signed ILIR Sidhu (Deniz Spence) Was pt. sent in by a medical professional or institution ([address], SHEET ROLLER OPERATOR, urgent care, hospital, or senior care...) When possible be specific @ -No Did you speak to anyone other than the patient for history (EMS, parent, family, police, friend...)? What history was obtained from this source @ -No Did you review nursing and triage notes (agree or disagree)? Why? @ -I reviewed and agree with nursing and triage notes Were old charts reviewed (outside hosp., previous admission, EMS record, old EKG, old radiological studies, urgent care reports/EKG's, senior care records)? Report findings @ -No old charts were reviewed Differential Diagnosis (chest pain, altered mental status, abdominal pain women, abdominal pain men, vaginal bleeding, weakness, fever, dyspnea, syncope, headache, dizziness, GI bleed, back pain, seizure, CVA, palpatations, mental health, musculoskeletal)? @ -Differential includes UTI, kidney stone, pyelonephritis, this is not an all- inclusive list EKG interpreted by me (3pts min.). @ -As above X-rays interpreted by me (1pt min.). @ -None done CT interpreted by me (1pt min.). @ -None done U/S interpreted by me (1pt. min.). @ -None done What testing was considered but not performed or refused? (CT, X-rays, U/S, labs)? Why? @ -None What meds were considered but not given or refused? Why? @ -None Did you discuss the management of the patient with other professionals (professionals i.e. , PA, SHEET ROLLER OPERATOR, lab, RT, psych nurse, oncology social work, glaze mixer, teacher, animal park code enforcement officer, binder caser)? Give summary @ -No Was smoking cessation discussed for >3mins.? @ -No Was critical care preformed (if so, how long)? @ -No Were there social determinants of health that impacted care today? How? (Homelessness, low income, unemployed, alcoholism, drug addiction, transportation, low edu. Level, literacy, decrease access to med. care, residential, rehab)? @ -No Was there de-escalation of care discussed even if they declined (Discuss DNR or withdrawal of care, Hospice)? DNR status @ -No What co-morbidities impacted this encounter? (DM, HTN, Smoking, COPD, CAD, Cancer, CVA, ARF, Chemo, Hep., AIDS, mental health diagnosis, sleep apnea, morbid obesity)? @ -None Was patient admitted / discharged? Hospital course, mention meds given and route, prescriptions, significant lab abnormalities, going to OR and other pertinent info. @ -69-year-old female presenting with chief complaint of possible bladder infection and possible groin hair. On exam patient shows me the area where she believes ingrown hairs on the right buttock, there is a small [place] of h yperpigmentation that may be where previous ingrown hair was, however there is no current lesion or fluid collection. UA shows large leukocytes with 31 WBCs. Given the patient's symptoms we will treat for UTI with Keflex. Patient is educated on today's findings and treatment plan. Discharged. Follow-up with PCP. Report back to ER with any new or worsening symptoms. Discussed return parameters and answered all questions. Patient conveyed verbal understanding and agreed to the plan. I discussed this case in detail with my attending Dr. Greer Undiagnosed new problem with uncertain prognosis? @ -No Drug Therapy requiring intensive monitoring for toxicity (Heparin, Nitro, Insulin, Cardizem)? @ -No Were any procedures done? @ -No Diagnosis/symptom? @ -UTI Acute, or Chronic, or Acute on Chronic? @ -Acute Uncomplicated (without systemic symptoms) or Complicated (systemic symptoms)? @ -Uncomplicated Side effects of treatment? @ -No Exacerbation, Progression, or Severe Exacerbation? @ -No Poses a threat to life or bodily function? How? (Chest pain, USA, ID, pneumonia, PE, COPD, DKA, ARF, appy, cholecystitis, CVA, Diverticulitis, Homicidal, Suicidal, threat to staff... and all critical care pts) @ -Possible if not treated properly (Luis Miranda) - Lab Data Lab Results 07/29/24 Range/Units 20:12 Urine Color Colorless Urine Appearance Cloudy H (Clear) Urine pH 5.0 (5.0-8.0) Ur Specific [place] 1.019 (1.001-1.035) Urine Protein Negative (Negative) Urine Glucose (UA) 4+ H (Negative) Urine Ketones Negative (Negative) Urine Blood Negative (Negative) Urine Nitrite Negative (Negative) Urine Bilirubin Negative (Negative) Urine Urobilinogen <2.0 (<2.0) mg/dL Ur Leukocyte Esterase Large H (Negative) Urine RBC 5 (0-5) /hpf Urine WBC 31 H (0-5) /hpf Ur Squamous Epith Cells 8 H (0-4) /hpf Ur Transition Epith Cell <1 (0-1) /hpf Urine Bacteria Few H (None) /hpf Urine Mucus Rare H (None) /hpf Disposition <Deniz Spence - Last Filed: 07/29/24 18:00> Is patient prescribed a controlled substance at d/c from ED?: No Time of Disposition: 21:31 <Luis Miranda - Last Filed: 08/04/24 23:33> Clinical Impression: Urinary tract infection Disposition: HOME SELF-CARE Condition: Good Instructions (If sedation given, give patient instructions): Urinary Tract Infection in Women (ED) Additional Instructions: Follow-up with PCP. Report back to ER with any new or worsening symptoms. Take medication as prescribed. Prescriptions: Cephalexin [Keflex] 500 mg PO Q6HR 7 Days #28 cap Referrals: Kevyn Luciano DO [Primary Care Provider] - 1-2 days
[2024-07-29 21:02] LABS: Appearance,Urine Cloudy (Clear); Bacteria,Urine Few /hpf; Bilirubin,Urine Negative (Negative); Blood,Urine Negative (Negative); Color,Urine Colorless; Glucose,Urine (UA) 4+ (Negative); Ketones,Urine Negative (Negative); Leukocyte Esterase,Urine Large (Negative); Mucus,Urine Rare /hpf; Nitrite,Urine Negative (Negative); Protein,Urine Negative (Negative); RBC,Urine 5 /hpf (0-5); Specific Gravity,Urine 1.019 (1.001-1.035); Squamous Epithelial Cell,Urine 8 /hpf (0-4); Transitional Epi Cells,Urine <1 /hpf (0-1); Urobilinogen,Urine <2.0 mg/dL (<2.0); WBC,Urine 31 /hpf (0-5)
[2024-07-29 21:53] VITALS: BP 115/72; PULSE 71; RESP 18; TEMP 97.8
== END 2024-07-29 21:53 | disposition home or self-care (01) ==
LOC: EC 17:31
DX: N39.0 Urinary tract infection, site not specified (principal); Z88.8 Allergy status to other drugs, medicaments and biological substances; Z88.1 Allergy status to other antibiotic agents; Z88.5 Allergy status to narcotic agent; Z88.0 Allergy status to penicillin; Z88.2 Allergy status to sulfonamides
CPT/HCPCS: 81001; 87086

== ENCOUNTER 2024-10-13 13:02 | Day surgery (SDC) | payer MEDICARE ==
[2024-10-08 14:22] VITALS: BMI 29.7
[~2024-10-13 13:02] MED LIST changes: -ACETAMINOPHEN TAB 500 MG TAB PO PRN; -DEXAMETHASONE SOD PHOSPHATE 4 MG/ML 1 ML VIAL IV ONE; -HEPARIN SODIUM,PORCINE/PF 5,000 UNIT/0.5 ML SYRINGE SQ PRN; -HYDROmorphone 0.5 MG/0.5 ML SYRINGE IVP PRN; +LIDOCAINE 1% (10MG/ML) FOR IV START INTRADERMA PRN; -ONDANSETRON 4 MG/2 ML VIAL IVP ONE
[2024-10-13 13:39] LABS: Glucose,Whole Blood 155 mg/dL (70-110)
[2024-10-13] MEDS: LACTATED RINGERS 500 ML IV ONE (13:39)
[2024-10-13 13:41] VITALS: TEMP 98
[2024-10-13] MEDS ORDERED: PROPOFOL 10 MG/ML 20 ML VIAL IV ONE (14:23)
--- NOTE | 2024-10-13 14:42 | P.OP ---
Date of Procedure: 10/13/24 Preoperative Diagnosis: Diarrhea Postoperative Diagnosis: Severe diverticulosis Procedure(s) Performed: Colonoscopy Anesthesia: MAC Surgeon: Douglas Monahan Pathology: none sent Condition: stable Disposition: PACU Description of Procedure: The patient was placed on the endoscopy table in the lateral position. She received IV sedation. The digital rectal exam was performed. This revealed no abnormality. Flex colonoscope was then placed patient anus passed throughout the colon. In the right colon there is large amount of liquid stool which limited the view of the right colon. There were extensive diverticular changes seen in the right colon, transverse colon and descending colon patient had pr evious sigmoid colectomy. The rectum appeared normal. Scope withdrawn for the patient.
[2024-10-13 15:05] VITALS: BP 137/66; PULSE 59; RESP 16
== END 2024-10-13 15:25 | disposition home or self-care (01) ==
LOC: ORWHC2ENDO 13:02
PROVIDERS: ATTEND Surgery
DX: K57.30 Diverticulosis of large intestine without perforation or abscess without bleeding (principal); K58.0 Irritable bowel syndrome with diarrhea; K43.2 Incisional hernia without obstruction or gangrene; K56.50 Intestinal adhesions [bands], unspecified as to partial versus complete obstruction; R11.0 Nausea; E11.9 Type 2 diabetes mellitus without complications; E78.5 Hyperlipidemia, unspecified; I48.91 Unspecified atrial fibrillation; I25.2 Old myocardial infarction; I25.10 Atherosclerotic heart disease of native coronary artery without angina pectoris; I11.0 Hypertensive heart disease with heart failure; I50.9 Heart failure, unspecified; G47.33 Obstructive sleep apnea (adult) (pediatric); J44.9 Chronic obstructive pulmonary disease, unspecified; M06.9 Rheumatoid arthritis, unspecified; M79.7 Fibromyalgia; G43.909 Migraine, unspecified, not intractable, without status migrainosus; F43.10 Post-traumatic stress disorder, unspecified; K21.9 Gastro-esophageal reflux disease without esophagitis; M19.90 Unspecified osteoarthritis, unspecified site; G40.909 Epilepsy, unspecified, not intractable, without status epilepticus; M10.9 Gout, unspecified; Z85.43 Personal history of malignant neoplasm of ovary; Z86.73 Personal history of transient ischemic attack (TIA), and cerebral infarction without residual deficits; Z79.899 Other long term (current) drug therapy; Z79.4 Long term (current) use of insulin; Z98.890 Other specified postprocedural states; Z96.651 Presence of right artificial knee joint; Z90.710 Acquired absence of both cervix and uterus; Z87.19 Personal history of other diseases of the digestive system; Z95.5 Presence of coronary angioplasty implant and graft; Z90.49 Acquired absence of other specified parts of digestive tract; Z88.1 Allergy status to other antibiotic agents; Z88.5 Allergy status to narcotic agent; Z88.8 Allergy status to other drugs, medicaments and biological substances; Z88.2 Allergy status to sulfonamides
CPT/HCPCS: 45378; J2704

== ENCOUNTER 2025-01-23 09:19 | Day surgery (SDC) | payer MEDICARE ==
[~2025-01-23 09:19] MED LIST changes: +HYDROmorphone 0.5 MG/0.5 ML SYRINGE IVP PRN; -LACTATED RINGERS 1,000 ML IV SCH; +Pre Op ABX Message 1 EACH MISC MISCELLANE ONE; +fentaNYL (PF) 50 MCG/ML 2 ML AMP IVP PRN
[2025-01-23 09:59] VITALS: RESP 16; TEMP 97
[2025-01-23 10:40] LABS: Glucose,Whole Blood 105 mg/dL (70-110)
[2025-01-23] MEDS: ACETAMINOPHEN TAB 500 MG TAB PO PRN (10:48)
[2025-01-23] MEDS: DEXAMETHASONE SOD PHOSPHATE 4 MG/ML 1 ML VIAL IV ONE (10:48)
[2025-01-23] MEDS: LACTATED RINGERS 1,000 ML IV ONE (10:49)
[2025-01-23] MEDS: LACTATED RINGERS 1,000 ML IV SCH (10:49)
[2025-01-23] MEDS: ONDANSETRON 4 MG/2 ML VIAL IVP ONE (10:49)
[2025-01-23] MEDS: HEPARIN SODIUM,PORCINE 5,000 UNIT/ML 1 ML VIAL SQ PRN (10:49)
[2025-01-23] MEDS ORDERED: PROPOFOL 10 MG/ML 20 ML VIAL IV ONE (11:10)
[2025-01-23] MEDS ORDERED: fentaNYL (PF) 50 MCG/ML 2 ML AMP ONE (11:10)
[2025-01-23] MEDS ORDERED: MIDAZOLAM 2 MG/2 ML VIAL ONE (11:10)
[2025-01-23] MEDS ORDERED: ePHEDrine 50 MG/ML 1 ML VIAL ONE (11:10)
[2025-01-23] MEDS ORDERED: GLYCOPYRROLATE 0.2 MG/ML 2 ML VIAL ONE (11:10)
[2025-01-23 11:17] LABS: Basophils # (A) 0.07 10*3/uL (0.00-0.10); Eosinophils # (A) 0.38 10*3/uL (0.04-0.35); Eosinophils % (A) 5.3 %; HGB 12.4 g/dL (12.0-15.0); Lymphocytes # (A) 2.19 10*3/uL (0.90-5.00); Lymphocytes % (A) 30.5 %; MCH 29.3 pg (27.0-32.0); MCHC 33.5 g/dL (32.0-37.0); MCV 87.5 fL (80.0-97.0); Mean Platelet Volume 10.1 fL (9.5-12.2); Monocytes # (A) 0.79 10*3/uL (0.20-1.00); Neutrophils # (A) 3.73 10*3/uL (1.80-7.70); Neutrophils % (A) 52.1 %; Platelet Count 264 10*3/uL (140-440); RBC 4.23 10*6/uL (4.10-5.20); RDW 13.2 % (11.5-14.5); WBC 7.17 10*3/uL (4.50-10.00)
[2025-01-23 11:31] LABS: African American GFR (CKD) 68 (>60 ml/min/1.73 sqM); Anion Gap 7 mmol/L; Blood Urea Nitrogen 21 mg/dL (7-17); Calcium 9.9 mg/dL (8.4-10.2); Carbon Dioxide 25 mmol/L (22-30); Chloride 106 mmol/L (98-107); Glucose 89 mg/dL (74-99); Non-African American GFR(CKD) 59 (>60 ml/min/1.73 sqM); Potassium 4.3 mmol/L (3.5-5.1); Sodium 138 mmol/L (137-145)
[2025-01-23] MEDS: SODIUM CHLORIDE 0.9% 50 ML with ceFAZolin 2,000 MG IV ONE (11:31)
[2025-01-23] MEDS: LIDOCAINE 1%-EPI 1:100,000 20 ML VIAL SQ ONE (11:41)
--- NOTE | 2025-01-23 11:52 | P.OP ---
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 She received gene IV sedation. Her abdominal wall had been prepped and draped you sterile fashion. The patient had a chronically inflamed skin lesion. This was excised appeared to be evidence of some fluid which was tracked down to a an exposed portion of the mesh. The mesh made apparently 5 x 5 mm. This was sharply debrided and sent to pathology. The wound was inspected for bleeding there is no bleeding seen. The wound was packed with iodoform dressing. Dressing applied. Patient tolerated well. She was sent to recovery room in stable condition.
[2025-01-23 12:35] VITALS: BP 146/84; PULSE 82
== END 2025-01-23 12:48 | disposition home health service (06) ==
LOC: OR 09:19
PROVIDERS: ATTEND Surgery
DX: L98.9 Disorder of the skin and subcutaneous tissue, unspecified (principal); E78.5 Hyperlipidemia, unspecified; E11.9 Type 2 diabetes mellitus without complications; I25.2 Old myocardial infarction; I11.0 Hypertensive heart disease with heart failure; I50.9 Heart failure, unspecified; I48.91 Unspecified atrial fibrillation; J44.89 Other specified chronic obstructive pulmonary disease; G47.33 Obstructive sleep apnea (adult) (pediatric); K58.9 Irritable bowel syndrome, unspecified; M06.9 Rheumatoid arthritis, unspecified; Z86.718 Personal history of other venous thrombosis and embolism; Z86.73 Personal history of transient ischemic attack (TIA), and cerebral infarction without residual deficits; Z86.69 Personal history of other diseases of the nervous system and sense organs; L23.1 Allergic contact dermatitis due to adhesives; Z89.521 Acquired absence of right knee; Z90.49 Acquired absence of other specified parts of digestive tract; Z90.710 Acquired absence of both cervix and uterus; Z88.0 Allergy status to penicillin; Z88.2 Allergy status to sulfonamides; Z88.5 Allergy status to narcotic agent; Z88.1 Allergy status to other antibiotic agents; Z88.8 Allergy status to other drugs, medicaments and biological substances; Z79.02 Long term (current) use of antithrombotics/antiplatelets; Z79.4 Long term (current) use of insulin; Z79.899 Other long term (current) drug therapy
CPT/HCPCS: 88305; 80048; 85025; 22903; J2250; J1644; J1100; J2405; J0690; J3010; J2704; J1596